=== PATIENT | female | born 1950 | race Caucasian/White ===

== ENCOUNTER → 2017-08-12 17:14 | Outpatient (CLI) | payer MEDICARE, BC, SELFPAY ==
--- NOTE | 2017-08-12 14:45 | FLU_PTH ---
PATIENT: GAUDENCIO ROMO LOC: [facility] U#:[id number] AGE/SX: 74/F ROOM: RE08/12/[address]: Dr. Gopi Corbin MD : 1950 BED: DIS: SPEC #: [id number] RECD: 08/12/17 16:00 STATUS: SINGH JAZMINE #: [id number] MONY: 08/12/17 14:[address]: Gopi Corbin DEPT: CYTOLOGY RECD BY: Raoul Miller ENTERED: 08/13/17 08:53 SP TYPE: Fluid OTHR DR: Dr. Caroline Bennett MD Tissues: Urine Procedures: Pap Stain (control) Special Stain Group II Surgery Specimen Level IV Cytospin Fluid HEADER OPERATION: Not noted PRE-OP DIAGNOSIS: History bladder cancer TISSUE SUBMITTED: Urine for cytology DIAGNOSIS CYTOLOGY Urine for cytology (cytospin): A few mildly atypical urothelial cells noted. See cytology study and comment. SJ:gavin 08/14/17 COMMENT Clinical correlation and appropriate follow up are necessary. CYTOLOGY STUDY Slides are reviewed. The specimen consists of benign squamous cells, benign urothelial cells, a few mildly atypical urothelial cells, red blood cells, inflammatory cells and numerous crystals. CYTOLOGY GROSS Received is 20 ml of gold cloudy fluid labeled with the patient's name and and designated per the requisition as urine. Submitted for cytology preparation. / Otto 08/13/17 TC:5 CPT: 17962
[2017-08-12 17:15] LABS: Cytology, Body Fluid / CSF SEE PATHOLOGY REPORT
== END ==
PROVIDERS: Family Provider Internal Medicine; PCP Internal Medicine; Visit Provider Urology
DX: Z85.51 Personal history of malignant neoplasm of bladder (principal)
CPT/HCPCS: 88108; 88305; 88313

== ENCOUNTER 2017-11-23 14:54 | Emergency (ER) | payer MEDICARE, BC, SELFPAY ==
[2017-11-23 14:54] VITALS: BP 124/69; PULSE 71; RESP 16; TEMP 36.7; O2SAT 98; BMI 22.2
--- NOTE | 2017-11-23 15:29 | ED.DCSUM_ITS ---
- ER Visit Summary Date of Service: 11/23/17 Chief Complaint: Neck pain and headache History of Present Illness: The patient is a [address] Bennett and Dr. Lance. She reports that she has a history of chronic neck pain. However, she got a cortisone injection approximately 1 year ago and been doing well till 3 days ago. She reports her pain became much worse. She denies any trauma. No fall, MVA, or change in activity. She reports that she has a throbbing pain is 10 in severity. Is worsened by movement or walking. Is relieved by remaining still and putting a towel under her neck. The pain does not radiate to her arms. She denies any numbness or tingling in her arms. No problems with her bowels or her bladder. Patient reports that this pain radiates over the back of her head to the forehead. She states that this is gradually increased over the course the past 3 days. Physical Examination: Vitals: Stable. Afebrile. General: Well-nourished and well-developed. Head: Normocephalic atraumatic. Neck: Supple, no lymphadenopathy. No JVD. Mild diffuse tenderness palpation with spasm present over the paraspinous musculature on both sides of her the cervical spine and the trapezius muscles. No vertebral tenderness to palpation.. Cardiovascular: Regular rate and rhythm. No murmurs. Respiratory: No respiratory distress. Clear to auscultation bilaterally. Abdominal: Soft, nontender, nondistended, normal bowel sounds. No guarding, rebound, or peritoneal signs. Back: Nontender. Extremities: Nontender, no edema. 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 Normal sensation light touch in a C5-T1 distribution. Skin: Normal color, no rash. Neurologic: Alert and oriented ?3. Cranial nerves II through XII are intact. Normal strength and sensation. Psych: Normal affect. Emergency Department Course and Treatment: Patient was treated with Tylenol and did not want anything stronger for pain. Treatment Plan: She will be discharged instructions to add Tylenol to her pain regimen and follow-up with Dr. Lance soon as possible if not improving. Return to the emergency department for any worsening symptoms. Disposition: To home in improved and stable condition. Impression: 1. Neck pain, acute on chronic. 2. Tension headache. This note was generated with Dragon dictation software. It may contain incorrect words, spelling, and punctuation that were not noted in review of the chart prior to signing ED Disposition - Plan for ED Patient: Disposition: Home or Assisted Living Chief Complaint: Headache Instructions: ED Headache Tension Referrals: Sai Lance MD [STAFF PHYSICIAN] - 1-2 Days if not improving
[2017-11-23 15:41] VITALS: BP 120/82; PULSE 76; RESP 16; O2SAT 99
[2017-11-23] MEDS: Acetaminophen 325 MG Tablet 1000 MG PO (15:42)
== END 2017-11-23 15:56 | disposition home or self-care (01) ==
LOC: ED 15:50
PROVIDERS: Emergency Provider Emergency Medicine; Family Provider Internal Medicine; PCP Internal Medicine
DX: M54.2 Cervicalgia (principal); G89.29 Other chronic pain; G44.209 Tension-type headache, unspecified, not intractable; R11.2 Nausea with vomiting, unspecified; M19.90 Unspecified osteoarthritis, unspecified site; M81.0 Age-related osteoporosis without current pathological fracture; M48.00 Spinal stenosis, site unspecified; Z90.49 Acquired absence of other specified parts of digestive tract; Z79.899 Other long term (current) drug therapy
CPT/HCPCS: 99283

== ENCOUNTER → 2017-12-02 12:18 | Outpatient (CLI) | payer MEDICARE, BC, SELFPAY ==
[2017-12-02 13:33] LABS: Amphetamine Urine VISTA NEGATIVE (<1000 ng/mL); Barbiturate Urine VISTA NEGATIVE (< 200 ng/mL); Benzodiazepine Urine VISTA NEGATIVE (< 200 ng/mL); Cocaine Urine VISTA NEGATIVE (< 300 ng/mL); Ecstacy Urine VISTA NEGATIVE (< 500 ng/mL); Methadone Urine VISTA NEGATIVE (< 300 ng/mL); PCP Urine VISTA NEGATIVE (< 25 ng/mL); THC Urine VISTA NEGATIVE (< 50 ng/mL); Vista UDS pH Range 5
== END ==
PROVIDERS: Family Provider Internal Medicine; PCP Internal Medicine; Visit Provider Anesthesiology Pain Medicine
DX: F11.20 Opioid dependence, uncomplicated (principal)
CPT/HCPCS: 80307

== ENCOUNTER → 2018-04-20 10:30 | Outpatient (CLI) | payer MEDICARE, BC, SELFPAY ==
--- OUTSIDE RECORDS SUMMARY | 2018-06-22 20:52 | XMS RPT_ITS ---
:1950 Author Organization OHIP Care Team Providers Name Role Phone ANA CONTRERAS Admitting Unavailable ANA CONTRERAS Attending Unavailable TALAMPAS, SUN D Referring Unavailable TALAMPAS, SUN D Referring Unavailable TALAMPAS, SUN D Attending Unavailable TALAMPAS, SUN D Referring Unavailable PELLE, CAROL (FEL) Attending Unavailable PELLE, CAROL (FEL) Referring Unavailable PELLE, CAROL (FEL) Referring Unavailable SELWYN ALLRED Referring Unavailable PELLE, CAROL (FEL) Attending Unavailable ANGELIQUE VALENTIN (PT) Attending Unavailable PELLE, CAROL (FEL) Referring Unavailable RAUL GOMEZ Attending Unavailable LADY FELDMAN Referring Unavailable ANGELIQUE VALENTIN (PT) Attending Unavailable PELLE, CAROL (FEL) Referring Unavailable ANGELIQUE VALENTIN (PT) Attending Unavailable PELLE, CAROL (FEL) Referring Unavailable ANGELIQUE VALENTIN (PT) Attending Unavailable PELLE, CAROL (FEL) Referring Unavailable DE TWILACO, KARLO C Attending Unavailable PELLE, CAROL (FEL) Referring Unavailable OLDER, ELIZABETH (GAS PLUMBING INSPECTOR) Attending Unavailable OLDER, ELIZABETH (GAS PLUMBING INSPECTOR) Referring Unavailable BARBIE, ANGELIQUE (PT) Attending Unavailable PELLE, CAROL (FEL) Referring Unavailable BARBIE, ANGELIQUE (PT) Attending Unavailable PELLE, CAROL (FEL) Referring Unavailable NOLANNUVIA (PA) Attending Unavailable THORPEDALJIT (PSYCHIATRIC CNS) Referring Unavailable LEVER, ANA Titus Attending Unavailable TESTRAKE, RANDOLPH Referring Unavailable TESTRAKE, RANDOLPH Attending Unavailable LEVER, ANA Titus Referring Unavailable MOUL, OFELIA E Attending Unavailable MOUL, OFELIA E Referring Unavailable LEVER, ANA Titus Referring Unavailable LEVER, ANA Titus Referring Unavailable LEVER, ANA Titus Attending Unavailable LEVER, ANA Titus Referring Unavailable LEVER, ANA Titus Attending Unavailable LEVER, ANA Titus Referring Unavailable TALAMPAS, SUN D Referring Unavailable CHALINOSELWYN Attending Unavailable LEVER, ANA Titus Attending Unavailable LEVER, ANA Titus Referring Unavailable LEVER, ANA Titus Attending Unavailable RIVERANIESHA (HOTEL VALET ATTENDANT) Attending Unavailable MOUL, OFELIA E Attending Unavailable MOUL, OFELIA E Referring Unavailable LEVER, ANA Titus Attending Unavailable LEVER, ANA Titus Attending Unavailable LEVER, ANA Titus Referring Unavailable ROSA ELENAYAIR (FEL) Attending Unavailable LEVER, ANA Titus Attending Unavailable VELLANKI, CELESTE KJ Referring Unavailable MOUL, OFELIA E Attending Unavailable MOUL, OFELIA E Referring Unavailable Emerald, Yury Attending Unavailable Emerald, Gopi Farr Referring Unavailable Talampas, Sun Primary Care Unavailable Emerald, Gopi Farr Attending Unavailable Talampas, Sun Primary Care Unavailable Talampas, Sun Primary Care Unavailable Abdulaziz Pradhan Attending Unavailable Basali, Ayman Attending Unavailable Basali, Ayman Referring Unavailable Talampas, Sun Primary Care Unavailable PROBLEMS PROBLEMS DATE TYPE CONDITION / CODE ATTENDING STATUS SOURCE 03/19/2018 Active Encounter for NA Active [place] screening mammogram Clinic Other for malignant neoplasm [place] of breast / Repository Z12.31(ICD-10) 01/07/2018 Active Obstructive sleep OFELIA CAR Active [place] apnea (adult) [facility] (pediatric) / [place] G47.33(ICD-10) Repository 07/10/2017 Active Lumbago with sciatica, OFELIA CAR Active [place] left side / [facility] M54.42(ICD-10) [place] Repository 07/10/2017 Active Lumbago with sciatica, OFELIA CAR Active [place] right side / E [facility] M54.41(ICD-10) [place] Repository 07/10/2017 Active Other chronic pain / OFELIA CAR Active [place] G89.29(ICD-10) [facility] [place] Repository 09/10/2017 Active Central sleep apnea in OFELIA CAR Active [place] conditions classified [facility] elsewhere / [place] G47.37(ICD-10) Repository 08/13/2017 Active Bariatric surgery OFELIA CAR Active [place] status / [facility] Z98.84(ICD-10) [place] Repository 04/03/2016 Active Psychophysiologic OFELIA CAR Active [place] insomnia / [facility] F51.04(ICD-10) [place] Repository 10/21/2012 Active Major depressive OFELIA CAR Active [place] disorder, recurrent, [facility] in partial remission / [place] F33.41(ICD-10) Repository 02/12/2012 Active Epilepsy, unspecified, OFELIA CAR Active [facility] not intractable, [facility] without status [place] epilepticus / Repository G40.909(ICD-10) 12/02/2017 Unknown F11.20 - Opioid Basali, Ayman Active [facility] dependence, [facility] uncomplicated / Hospital F11.20(ICD-10) Repository 11/06/2017 Active Other dysphagia / NA Active [place] R13.19(ICD-10) Clinic Main [place] Repository 02/03/2017 Active Mixed hyperlipidemia / CHALINOIDAAN Active [place] E78.2(ICD-10) Clinic Main [place] Repository 01/08/2016 Active Vitamin D deficiency, CHALINOSELWYN Active [place] unspecified / Clinic [facility] E55.9(ICD-10) [place] Repository 01/08/2016 Active Hypothyroidism, CHALINO SELWYN Active [place] unspecified / Clinic [facility] E03.9(ICD-10) [place] Repository 10/06/2017 Active Age-related SELWYN ALLRED Active [place] osteoporosis without [facility] current pathological [place] fracture / Repository M81.0(ICD-10) 10/06/2017 Active Mild protein-calorie SELWYN ALLRED Active [place] malnutrition / Clinic [facility] E44.1(ICD-10) [place] Repository 10/02/2017 Active Unknown / UNK(Unknown) ANA CONTRERAS Active [facility] Other [place] Repository 09/30/2017 Active Impaired fasting NA Active [place] glucose / Clinic [facility] R73.01(ICD-10) [place] Repository 09/16/2017 Active Dyskinesia 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 Active [place] esophagus / [facility] K22.4(ICD-10) [place] Repository 09/11/2017 Active Dysphagia, unspecified NA Active [place] / R13.10(ICD-10) Clinic Main [place] Repository 08/13/2017 Active Epigastric pain / NA Active [place] R10.13(ICD-10) Clinic Main [place] Repository 09/09/2017 Active Acquired absence of NA Active [place] other specified parts Clinic Main of digestive tract / [place] Z90.49(ICD-10) Repository 09/08/2017 Active Pain, unspecified / NA Active [place] R52(ICD-10) Clinic Main [place] Repository 10/23/2017 Unknown Z85.51 - Personal Emerald, Gopi Active [place] history of malignant [facility] neoplasm of bladder / Hospital Z85.51(ICD-10) Repository 08/02/2017 Active Candidal stomatitis / NA Active [place] B37.0(ICD-10) Clinic Other [place] Repository 05/13/2017 Active Radiculopathy, lumbar NA Active [place] region / Clinic Main M54.16(ICD-10) [place] Repository 04/30/2017 Active 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 ORGANISM 1: Mixed Gram Positive Organisms [place] Count <1000 MIX CULTURE Mixed contaminants. Submit a new specimen if indicated. Performed By: #### [id number] #### [facility] [address] [place], [place], [address] PROGRESS Observed: 04/08/2018 Status: COMPLETED Source: [place] 3:21 PM CLINIC MAIN CAMPUS REPOSITORY HNO ID: [id number] Author: Annetta Holt LPN Service: (none) Author Type: (none) Type: Progress Notes Filed: 04/08/2018 3:23 PM Note Text: PA approved for modafinil from 03/04/2018 until 04/03/2019. Pharmacy notified. CNCO Observed: 03/23/2018 Status: COMPLETED Source: [place] 9:56 AM [facility] MAIN CAMPUS REPOSITORY HNO ID: [id number] Author: Mammography Coordinator Service: (none) Author Type: Physician Type: Letter Filed: 03/24/2018 11:31 PM Note Text: March 23, 2018 PID: [id number] Frannie MahnazMeliza Romo [address] [place] [address] Dear Ms. Romo, We are pleased to inform you that the results of your recent breast imaging exam on 03/19/2018 are normal. Early detection of cancer is very important. We also understand recommendations regarding breast cancer screening are controversial. Please discuss with your primary care provider which strategy is best for you and whether a mammogram is right for you. Your imaging studies and report will be kept on file at [facility] as part of your permanent medical record and are available for your continuing care. Thank you for allowing us to help in meeting your health care needs. Sincerely, Dr. Mendosa Interpreting Radiologist [facility]. (Normal over 40) JENNIFER SCREENING W NOELLE Observed: 03/19/2018 Status: F Source: [place] 2:38 PM [facility] OTHER CAMPUS REPOSITORY * * *Final Report* * * DATE OF EXAM: Mar 19 2018 2:38PM AJIT [id number] - JENNIFER SCREENING W NOELLE / PROCEDURE REASON: Z12.31-Screening for breast cancer * * * * Physician Interpretation * * * * #[id number] - JENNIFER SCREENING W NOELLE BILATERAL DIGITAL SCREENING MAMMOGRAM TOMOSYNTHESIS WITH CAD: 03/19/2018 HISTORY: Z12.31-Screening For Breast Cancer /Screening Mammogram - patient reports NO symptoms. RESULT: TECHNIQUE: The study was acquired using full field digital technology and interpreted from soft copy. Digital Breast Tomosynthesis (DBT) images were obtained and used to assist in the interpretation of this examination. Current study was also evaluated with a Computer Aided Detection (CAD). Comparison is made to exams dated: 03/17/2017 mammogram, 03/14/2016 mammogram, and 03/15/2015 mammogram - [facility]. There are scattered fibroglandular elements in both breasts. There are benign calcifications in the right breast. No significant masses, calcifications, or other findings are seen in either breast. There has been no significant interval change. IMPRESSION: BENIGN FINDING There is no mammographic evidence of malignancy. A 1 year screening mammogram is recommended. Eddy summers/natalia:03/23/2018 09:56:07 New Accounts Banking Representative(s): HAMILTON Hartman)(Mahnaz), [facility] letter sent: Normal over 40 Mammogram BI-RADS: 2 Benign finding Multiple national specialty organizations have released breast cancer screening guidelines for women at average risk for developing breast cancer - guidelines that are based on both evidence and opinion, yet differ on when to start and how often to screen for breast cancer. With representation from Breast Imaging, Internal Medicine, Women's Health, Family Medicine, and Medical/Surgical Oncology, the [facility] has carefully reviewed the data and reached the following consensus: 1) All women should engage in shared decision-making with their providers to decide when to start and how often to screen; 2) All women should have the opportunity to start screening mammography at age 40; 3) For women ages 45-55, we recommend annual screening mammograms; 4) For women ages 55 and over, we support both the transition from an annual to a biennial interval if this aligns more with patient's values and preferences, or continuation with annual screening; 5) All women should discuss with their providers when to stop screening mammograms. 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Livestock: Natalia Transcribe Date/Time: Mar 19 2018 2:27P Dictated by : EDDY MENDOSA DO This examination was interpreted and the report reviewed and electronically signed by: EDDY MENDOSA DO on Mar 23 2018 9:56AM EST [id number] CNOV Observed: 03/04/2018 Status: COMPLETED Source: [place] 1:00 PM [facility] [place] REPOSITORY Office Visit (NEMOWS) FRANNIE ROMO ([id number]) 1950 F [facility] Date Time Provider Department 03/04/18 1:00 PM OFELIA CAR During your visit today, we recorded the following information about you: Pulse Respiration Blood pressure Weight 72/minute 16/minute 96/56 53.9 kg Ofelia Car MD 03/04/2018 1:40 PM Signed [facility] Follow-up/Established patient visit Reason for Visit on 03/04/18 at [place] : periodic follow up. Time Out: 1:40 Time In: 1:20 For this visit, a total xtks-oy-xwxy time with the patient comprised 20 minutes, with at least 50% of that time devoted to uqrd-ws-vmid counseling and coordination of care, with especial emphasis placed on answering the patient?s and/or family?s questions in a form that they can understand and appreciate. Relevant Medications, allergies, hx Reviewed: yes Date of last visit: 12/03/17 Insurance: Medicare Home Location: [place] From Last Visit: Sleep Disorder Dx Impression: Obstructive sleep apnea - compliant sufficient and benefitt Central Sleep apnea Psychophysiological INsomnia ? Other Conditioning Diagnoses: Epilepsy, Hx Gastric bypass MDD [place] ? Case Formulation / [place] (may include pt's hopes, fears, expectations, concerns): Present regimen is working ok ? Actions taken: Motivational Interviewing aspects taken Explaining out the regimen. PDMP Aspect: To schedule from 12/09 forward ? ? Review Explanation of how opiats affect breathing Explaining diff betw Bipap and ASV ? Plan: Continue present regimen, continue to observe ? Follow up on March 04. . Psychological/Psychiatric Developments: Generally going well, The abilify continues to be a breakthrough drug. Medical and Neurological Developments: No new. Continues to have some pain issues. Wearing a TENS unit. Insomnia: found that the trazodone impaired her swallowing and made her feel weird, so she stopped it. Noted this after stopping the trazodone. Continued with the ambien Has not tried doxepin before. . RLS: no Other: no SLEEP-WAKE SCHEDULE Bedtime: usu about 1 am up to 2. SLEEP LATENCY: 30 min mostly Wake after Sleep Onset solid for the time, wearing ASV. Wake time: at 4 or 5, staying in bed till 9 or 10 am. , On weekends, she maintains the same sleep schedule. Sleep Quality: fair, improved, but not optimal She does not take naps. Average total sleep time (in a 24 hour period): 4 hours mostly may get 10 hours. Obstructive Sleep Apnea Issues: Most Recent Apnea-Hypopnea Index: 48 PAP Pressure Setting(s) ASV DME Company: [facility] ?? Mask Type: Lisha Mask Issues: Will find the mask comes off Download Report: na Self-Reported Compliance: Every night Benefit: Yes. ALLERGIES Allergen Reactions - Effexor [Venlafaxin* Intolerance headaches - Anticholinergics - * cogentin - Codiene [Other] chest pain - Cogentin [Benztropi* Body went rigid - Dex Rachelle [Other] Medrol dose pack: hallucinatios, diff walking - Keflex [Cephalexin] Intolerance makes pt too drowsy - Phenothiazines compazine-1 sided facial weakness (like stroke) - Roxicet [Oxycodone-* Itching CURRENT MEDICATIONS: oxyCODONE-acetaminophen (PERCOCET) 5-325 mg tablet naloxegol (MOVANTIK) 25 mg tablet Take 1 tablet by mouth once daily. CPAP Mask (per patient preference) optional chin strap (if indicated), filters, tubing / heated tubing, heated humidity and lifetime supplies. Dx. JUVENAL G47.33 327.23 ARIPiprazole (ABILIFY) 5 mg tablet Take 2 tablets by mouth once daily. Zolpidem (AMBIEN CR) 12.5 mg CR tablet Take 1 tablet by mouth at bedtime as needed for Sedation (generic acceptable) for up to 90 days. cholecalciferol, Vitamin D3, (VITAMIN D3) 50,000 unit cap capsule Take 1 capsule by mouth once each week. levothyroxine (SYNTHROID) 50 mcg tablet Take one tablet by mouth once daily, and 1/2 tablet on Sundays. ondansetron orally disintegrating (ZOFRAN ODT) 4 mg disintegrating tablet Take 1 tablet by mouth every 6 hours as needed for Nausea/Vomiting. docusate sodium (COLACE) 100 mg capsule Take 100 mg by mouth twice daily. lamoTRIgine (LAMICTAL) 100 mg tablet Take 1 tablet by mouth twice daily. traZODone (DESYREL) 100 mg tablet Take 3 tablets by mouth daily at bedtime. COMPOUNDED PRESCRIPTION Powerstep full length insert(M72.2) Plantar fasciitis of right foot (primary encounter diagnosis) ARIPiprazole (ABILIFY) 5 mg tablet Take 2 tablets by mouth once daily. zoledronic acid (RECLAST) 5 mg/100 mL pgbk PREMIX piggyback Inject 100 mL intravenously every year. CPAP AutoSV EPAP min= 12 cmH2O, PS min-max = 3-00dwT2A, Max pressure = 25 cmH2O, Rate =Auto, lifetime supplies, Dx: G47.33, G47.37 diclofenac sodium (VOLTAREN) 1 % topical gel Apply 2 g to affected area four times daily. APREMILAST (OTEZLA ORAL) Take 30 mg by mouth twice daily. DOCUSATE CALCIUM (STOOL SOFTENER ORAL) Take 1 tablet by mouth twice daily. oxybutynin XL (DITROPAN XL) 10 mg 24 hr tablet Take 10 mg by mouth once daily. ASCORBIC ACID (VITAMIN C ORAL) Take 1 tablet by mouth once daily. Biotin 10,000 mcg cap Take 15,000 mcg by mouth twice daily. Coenzyme Q10 200 mg cap Take 200 mg by mouth twice daily. pregabalin 150 mg capsule Take 1 capsule by mouth once daily. Dr Lance MAGNESIUM OXIDE/MAG AA CHELATE (MAGNESIUM ORAL) Take 1 tablet by mouth twice daily. LACTOBACILLUS RHAMNOSUS GG (PROBIOTIC ORAL) Take 1 capsule by mouth daily at bedtime. Cyanocobalamin (VITAMIN B-12) 1,000 mcg ORAL Lozg Take 1,000 mcg by mouth once daily. FE PS CMPLX/ASCORBIC ACID (IRON PS COMPLEX-ASCORBIC ACID ORAL) Take 1 tablet by mouth daily at bedtime. LIDOCAINE 5 % (700 MG/PATCH) ADHESIVE PATCH Apply one patch to each hip daily. Remove patch after 12 hours. as needed MULTIVITAMIN TAB daily vitamin b complex(B COMPLEX TAB) Take one(1) tablet daily. Vital signs: BP 96/56 (BP Site: Left Arm, BP Position: Sitting, BP Cuff Size: Regular Adult) Pulse 72 Resp 16 Wt 53.9 kg (118 lb 12.8 oz) BMI 23.20 kg/m? MENTAL STATUS General appearance: prim Grooming good Orientation: Ox3 Memory: Grossly intact Kinetics: normal Eye Contact: good Demeanor pleasnat Speech: articulate Thought Stream logical Thought Content about how doing. Mood: euth Affect: euth Suicidal Ideation: no Homocidal Ideation: No Psychosis no Insight good Judgment good ENT : na Abdomen: flat Neuro: Gait and station normal, Strength grossly normal in all extremities. Coordination grossly intact. No tremors noted. Sleep Disorder Dx Impression: Obstructive sleep apnea - compliant sufficient and benefitt Central Sleep apnea Psychophysiological Insomnia ? Other Conditioning Diagnoses: Epilepsy, Hx Gastric bypass MDD Tremor Case Formulation / [place] (may include pt's hopes, fears, expectations, concerns): Presently doing rather well, Might try doxepin to see if helpful, but in limited supply Actions taken: Motivational Interviewing aspects taken revies PDMP Aspect: na Added Doxepin 10 mg hs. #10 only Plan: Go with Doxepin if helpful; Keep to present meds. Follow up as scheduled. Ofelia Car MD Referring Provider: OFELIA CAR [[id number]] Allergies As of Date: 03/04/2018 Noted Allergy Reaction EFFEXOR (VENLAFAXINE HCL) 01/01/2010 5 - Intolerance Comments: headaches ANTICHOLINERGICS - QUATERNARY 01/04/2003 Comments: cogentin Codiene [Other] 01/04/2003 Comments: chest pain GEORGIAENTIN (BENZTROPINE MESYLATE) 03/16/2008 Comments: Body went rigid dex rachelle [Other] 03/16/2008 Comments: Medrol dose pack: hallucinatios, diff walking KEFLEX (CEPHALEXIN) 12/18/2011 5 - Intolerance Comments: makes pt too drowsy PHENOTHIAZINES 01/04/2003 Comments: compazine-1 sided facial weakness (like stroke) ROXICET (OXYCODONE-ACETAMINOPHEN) 03/15/2010 9 - Itching Date Reviewed: 02/09/2018 Reviewed by: Esteban Quesada) BALDEV [place] - Fully Assessed Reason for Visit: Established Patient [175] Primary Visit Diagnosis:Psychophysiological insomnia [F51.04] Other Visit Diagnoses:Obstructive Sleep apnea - AHI 48 [G47.33] Central sleep apnea due to medical condition [G47.37] Recurrent major depressive disorder, in partial remission (HCC) [F33.41] History of gastric bypass [Z98.84] Nonintractable epilepsy without status epilepticus, unspecified epilepsy type (HCC) [G40.909] Chronic bilateral low back pain with bilateral sciatica [M54.42, M54.41, G89.29] Order(s):doxepin capsule 10 mgTake 1 capsule by mouth daily at bedtime.Disp: 10 capsuleRfl: 0 Prescriptions as of 03/04/2018 Sig: OXYCODONE-ACETAMINOPHEN 5 MG-* ZOLPIDEM ER 12.5 MG TABLET,EX* Take 1 tablet by mouth at bed* LEVOTHYROXINE 50 MCG TABLET Take one tablet by mouth once* LAMOTRIGINE 100 MG TABLET Take 1 tablet by mouth twice * OXYBUTYNIN CHLORIDE ER 10 MG * Take 10 mg by mouth once vashti* PREGABALIN 150 MG CAPSULE Take 1 capsule by mouth once * Patient taking differently: Take 150 mg by mouth twice da* MAGNESIUM ORAL Take 1 tablet by mouth twice * LIDOCAINE 5 % TOPICAL PATCH Apply one patch to each hip d* MULTIVITAMIN TABLET daily DOXEPIN 10 MG CAPSULE Take 1 capsule by mouth daily* NALOXEGOL 25 MG TABLET Take 1 tablet by mouth once d* Patient not taking: Reported on 02/09/2018 CPAP Mask (per patient preference)* ARIPIPRAZOLE 5 MG TABLET Take 2 tablets by mouth once * CHOLECALCIFEROL (VITAMIN D3) * Take 1 capsule by mouth once * ONDANSETRON 4 MG DISINTEGRATI* Take 1 tablet by mouth every * Patient not taking: Reported on 02/09/2018 DOCUSATE SODIUM 100 MG CAPSULE Take 100 mg by mouth twice da* COMPOUNDED PRESCRIPTION Powerstep full length insert * ARIPIPRAZOLE 5 MG TABLET Take 2 tablets by mouth once * ZOLEDRONIC ACID 5 MG/100 ML I* Inject 100 mL intravenously e* CPAP AutoSV EPAP min= 12 cmH2O, PS* DICLOFENAC 1 % TOPICAL GEL Apply 2 g to affected area fo* OTEZLA ORAL Take 30 mg by mouth twice lulu* STOOL SOFTENER ORAL Take 1 tablet by mouth twice * VITAMIN C ORAL Take 1 tablet by mouth once d* BIOTIN 10,000 MCG CAPSULE Take 15,000 mcg by mouth twic* COENZYME Q10 200 MG CAPSULE Take 200 mg by mouth twice da* PROBIOTIC ORAL Take 1 capsule by mouth daily* CYANOCOBALAMIN (VIT B-12) 1,0* Take 1,000 mcg by mouth once * IRON PS COMPLEX-ASCORBIC ACID* Take 1 tablet by mouth daily * B COMPLEX TABLET,EXTENDED REL* Take one(1) tablet daily. More... More... Problem List As Of Date 03/04/2018 Noted Resolved Obesity, unspecified [E66.9] INVALID FOR*09/18/2012 More... More... Depressive disorder, not elsewhere classified [*INVALID FOR*10/21/2012 More... Mixed hyperlipidemia [E78.2] INVALID FOR* More... BONE AND CARTILAGE DIS NOS [M89.9, M94.9] INVALID FOR* More... Hypothyroidism [E03.9] INVALID FOR* More... Unspecified sleep apnea [G47.30] INVALID FOR*06/20/2014 More... More... Radiculopathy, lumbar region [M54.16] INVALID FOR* More... More... DISC DIS NEC/NOS-THORAC [M51.9] INVALID FOR* More... CERVICALGIA [M54.2] INVALID FOR* More... More... More... Vitamin D deficiency [E55.9] INVALID FOR* More... More... Insomnia [G47.00] 04/13/2014 Chronic insomnia [F51.04] INVALID FOR*04/13/2014 Class: Chronic More... 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 Obstructive Sleep apnea - AHI 48 [G47.33] INVALID FOR* Osteoporosis, unspecified [M81.0] INVALID FOR*08/09/2014 Osteoporosis [M81.0] INVALID FOR* More... Central sleep apnea in conditions classified el*INVALID FOR* DDD (degenerative disc disease), cervical [M50.*INVALID FOR* DDD (degenerative disc disease), lumbar [M51.36]INVALID FOR* Chronic pain [G89.29] INVALID FOR* Memory deficits [R41.3] INVALID FOR* Onychomycosis [B35.1] INVALID FOR* More... Psoriatic arthritis (HCC) [L40.50] INVALID FOR* Rotator cuff arthropathy, left [M12.812] INVALID FOR* Cervical radiculopathy [M54.12] INVALID FOR* Chronic bilateral low back pain with bilateral *INVALID FOR* Epigastric abdominal pain [R10.13] INVALID FOR* More... History of gastric bypass [Z98.84] INVALID FOR* More... Central sleep apnea due to medical condition [G*INVALID FOR* Prescriptions ordered this encounter Disp Refills Start End DOXEPIN 10 MG CAPSULE 10 c* 0 03/04/2018 Route: ORAL Sig: Take 1 capsule by mouth daily at bedtime. Medications Discontinued During This Encounter traZODone (DESYREL) 100 mg tablet 270 * 3 09/10/2017 03/04/2018 Route: ORAL Sig: Take 3 tablets by mouth daily at bedtime. Patient not taking: Reported on 01/28/2018 Disc: Adverse Reaction Follow-up and Disposition History Recorded Encounter Status:Closed by MD OFELIA CAR on 03/04/18 PROGRESS Observed: 03/03/2018 Status: COMPLETED Source: [place] 1:05 PM [facility] [place] HNO ID: [id number] Author: Ofelia Car Service: (none) Author Type: Physician Type: Progress Notes Filed: 03/04/2018 1:40 PM Note Text: [facility] Follow-up/Established patient visit Reason for Visit on 03/04/18 at [place] : periodic follow up. Time Out: 1:40 Time In: 1:20 For this visit, a total ycef-ro-umnb time with the patient comprised 20 minutes, with at least 50% of that time devoted to szrj-xc-hcya counseling and coordination of care, with especial emphasis placed on answering the patient?s and/or family?s questions in a form that they can understand and appreciate. Relevant Medications, allergies, hx Reviewed: yes Date of last visit: 12/03/17 Insurance: Medicare Home Location: [place] From Last Visit: Sleep Disorder Dx Impression: Obstructive sleep apnea - compliant sufficient and benefitt Central Sleep apnea Psychophysiological INsomnia ? Other Conditioning Diagnoses: Epilepsy, Hx Gastric bypass MDD [place] ? Case Formulation / [place] (may include pt's hopes, fears, expectations, concerns): Present regimen is working ok ? Actions taken: Motivational Interviewing aspects taken Explaining out the regimen. PDMP Aspect: To schedule from 12/09 forward ? ? Review Explanation of how opiats affect breathing Explaining diff betw Bipap and ASV ? Plan: Continue present regimen, continue to observe ? Follow up on March 04. . Psychological/Psychiatric Developments: Generally going well, The abilify continues to be a breakthrough drug. Medical and Neurological Developments: No new. Continues to have some pain issues. Wearing a TENS unit. Insomnia: found that the trazodone impaired her swallowing and made her feel weird, so she stopped it. Noted this after stopping the trazodone. Continued with the ambien Has not tried doxepin before. . RLS: no Other: no SLEEP-WAKE SCHEDULE Bedtime: usu about 1 am up to 2. SLEEP LATENCY: 30 min mostly Wake after Sleep Onset solid for the time, wearing ASV. Wake time: at 4 or 5, staying in bed till 9 or 10 am. , On weekends, she maintains the same sleep schedule. Sleep Quality: fair, improved, but not optimal She does not take naps. Average total sleep time (in a 24 hour period): 4 hours mostly may get 10 hours. Obstructive Sleep Apnea Issues: Most Recent Apnea-Hypopnea Index: 48 PAP Pressure Setting(s) ASV DME Company: [facility] ?? Mask Type: Lsiha Mask Issues: Will find the mask comes off Download Report: na Self-Reported Compliance: Every night Benefit: Yes. ALLERGIES Allergen Reactions - Effexor [Venlafaxin* Intolerance headaches - Anticholinergics - * cogentin - Codiene [Other] chest pain - Cogentin [Benztropi* Body went rigid - Dex Rachelle [Other] Medrol dose pack: hallucinatios, diff walking - Keflex [Cephalexin] Intolerance makes pt too drowsy - Phenothiazines compazine-1 sided facial weakness (like stroke) - Roxicet [Oxycodone-* Itching CURRENT MEDICATIONS: oxyCODONE-acetaminophen (PERCOCET) 5-325 mg tablet naloxegol (MOVANTIK) 25 mg tablet Take 1 tablet by mouth once daily. CPAP Mask (per patient preference) optional chin strap (if indicated), filters, tubing / heated tubing, heated humidity and lifetime supplies. Dx. JUVENAL G47.33 327.23 ARIPiprazole (ABILIFY) 5 mg tablet Take 2 tablets by mouth once daily. Zolpidem (AMBIEN CR) 12.5 mg CR tablet Take 1 tablet by mouth at bedtime as needed for Sedation (generic acceptable) for up to 90 days. cholecalciferol, Vitamin D3, (VITAMIN D3) 50,000 unit cap capsule Take 1 capsule by mouth once each week. levothyroxine (SYNTHROID) 50 mcg tablet Take one tablet by mouth once daily, and 1/2 tablet on Sundays. ondansetron orally disintegrating (ZOFRAN ODT) 4 mg disintegrating tablet Take 1 tablet by mouth every 6 hours as needed for Nausea/Vomiting. docusate sodium (COLACE) 100 mg capsule Take 100 mg by mouth twice daily. lamoTRIgine (LAMICTAL) 100 mg tablet Take 1 tablet by mouth twice daily. traZODone (DESYREL) 100 mg tablet Take 3 tablets by mouth daily at bedtime. COMPOUNDED PRESCRIPTION Powerstep full length insert(M72.2) Plantar fasciitis of right foot (primary encounter diagnosis) ARIPiprazole (ABILIFY) 5 mg tablet Take 2 tablets by mouth once daily. zoledronic acid (RECLAST) 5 mg/100 mL pgbk PREMIX piggyback Inject 100 mL intravenously every year. CPAP AutoSV EPAP min= 12 cmH2O, PS min-max = [id number], Max pressure = 25 cmH2O, Rate =Auto, lifetime supplies, Dx: G47.33, G47.37 diclofenac sodium (VOLTAREN) 1 % topical gel Apply 2 g to affected area four times daily. APREMILAST (OTEZLA ORAL) Take 30 mg by mouth twice daily. DOCUSATE CALCIUM (STOOL SOFTENER ORAL) Take 1 tablet by mouth twice daily. oxybutynin XL (DITROPAN XL) 10 mg 24 hr tablet Take 10 mg by mouth once daily. ASCORBIC ACID (VITAMIN C ORAL) Take 1 tablet by mouth once daily. Biotin 10,000 mcg cap Take 15,000 mcg by mouth twice daily. Coenzyme Q10 200 mg cap Take 200 mg by mouth twice daily. pregabalin 150 mg capsule Take 1 capsule by mouth once daily. Dr Lance MAGNESIUM OXIDE/MAG AA CHELATE (MAGNESIUM ORAL) Take 1 tablet by mouth twice daily. LACTOBACILLUS RHAMNOSUS GG (PROBIOTIC ORAL) Take 1 capsule by mouth daily at bedtime. Cyanocobalamin (VITAMIN B-12) 1,000 mcg ORAL Lozg Take 1,000 mcg by mouth once daily. FE PS CMPLX/ASCORBIC ACID (IRON PS COMPLEX-ASCORBIC ACID ORAL) Take 1 tablet by mouth daily at bedtime. LIDOCAINE 5 % (700 MG/PATCH) ADHESIVE PATCH Apply one patch to each hip daily. Remove patch after 12 hours. as needed MULTIVITAMIN TAB daily vitamin b complex(B COMPLEX TAB) Take one(1) tablet daily. Vital signs: BP 96/56 (BP Site: Left Arm, BP Position: Sitting, BP Cuff Size: Regular Adult) Pulse 72 Resp 16 Wt 53.9 kg (118 lb 12.8 oz) BMI 23.20 kg/m? MENTAL STATUS General appearance: prim Grooming good Orientation: Ox3 Memory: Grossly intact Kinetics: normal Eye Contact: good Demeanor pleasnat Speech: articulate Thought Stream logical Thought Content about how doing. Mood: euth Affect: euth Suicidal Ideation: no Homocidal Ideation: No Psychosis no Insight good Judgment good ENT : na Abdomen: flat Neuro: Gait and station normal, Strength grossly normal in all extremities. Coordination grossly intact. No tremors noted. Sleep Disorder Dx Impression: Obstructive sleep apnea - compliant sufficient and benefitt Central Sleep apnea Psychophysiological Insomnia ? Other Conditioning Diagnoses: Epilepsy, Hx Gastric bypass MDD Tremor Case Formulation / [place] (may include pt's hopes, fears, expectations, concerns): Presently doing rather well, Might try doxepin to see if helpful, but in limited supply Actions taken: Motivational Interviewing aspects taken revies PDMP Aspect: na Added Doxepin 10 mg hs. #10 only Plan: Go with Doxepin if helpful; Keep to present meds. Follow up as scheduled. Ofelia Car MD CNOV Observed: 02/09/2018 Status: COMPLETED Source: [place] 3:40 PM [facility] [place] RE[place]IT[place] Office Visit ([facility]) FRANNIE ROMO ([id number]) 1950 [address] [facility] Date Time Provider Department 02/09/18 3:40 PM ANA CONTRERAS [facility] During your visit today, we recorded the following information about you: Pulse Respiration Blood pressure Weight 69/minute 16/minute 78/54 54 kg Height 1.524 m Esteban Holloway LPN, BALDEV 02/09/2018 3:07 PM Signed Follow Up Visit There were no vitals filed for this visit. Current Medications: Current Outpatient Prescriptions: oxyCODONE-acetaminophen (PERCOCET) 5-325 mg tablet Disp: Rfl: Zolpidem (AMBIEN CR) 12.5 mg CR tablet Take 1 tablet by mouth at bedtime as needed for Sedation (generic acceptable) for up to 90 days. Disp: 90 tablet Rfl: 0 cholecalciferol, Vitamin D3, (VITAMIN D3) 50,000 unit cap capsule Take 1 capsule by mouth once each week. Disp: 12 capsule Rfl: 4 levothyroxine (SYNTHROID) 50 mcg tablet Take one tablet by mouth once daily, and 1/2 tablet on Sundays. Disp: 90 tablet Rfl: 3 lamoTRIgine (LAMICTAL) 100 mg tablet Take 1 tablet by mouth twice daily. Disp: 60 tablet Rfl: 5 ARIPiprazole (ABILIFY) 5 mg tablet Take 2 tablets by mouth once daily. Disp: 180 tablet Rfl: 3 zoledronic acid (RECLAST) 5 mg/100 mL pgbk PREMIX piggyback Inject 100 mL intravenously every year. Disp: 100 mL Rfl: 0 diclofenac sodium (VOLTAREN) 1 % topical gel Apply 2 g to affected area four times daily. Disp: 1 Tube Rfl: 1 APREMILAST (OTEZLA ORAL) Take 30 mg by mouth twice daily. Disp: Rfl: DOCUSATE CALCIUM (STOOL SOFTENER ORAL) Take 1 tablet by mouth twice daily. Disp: Rfl: ASCORBIC ACID (VITAMIN C ORAL) Take 1 tablet by mouth once daily. Disp: Rfl: Biotin 10,000 mcg cap Take 15,000 mcg by mouth twice daily. Disp: Rfl: Coenzyme Q10 200 mg cap Take 200 mg by mouth twice daily. Disp: Rfl: pregabalin 150 mg capsule Take 1 capsule by mouth once daily. Dr Lance (Patient taking differently: Take 150 mg by mouth twice daily. Dr Lance) Disp: Rfl: MAGNESIUM OXIDE/MAG AA CHELATE (MAGNESIUM ORAL) Take 1 tablet by mouth twice daily. Disp: Rfl: LACTOBACILLUS RHAMNOSUS GG (PROBIOTIC ORAL) Take 1 capsule by mouth daily at bedtime. Disp: Rfl: Cyanocobalamin (VITAMIN B-12) 1,000 mcg ORAL Lozg Take 1,000 mcg by mouth once daily. Disp: Rfl: FE PS CMPLX/ASCORBIC ACID (IRON PS COMPLEX-ASCORBIC ACID ORAL) Take 1 tablet by mouth daily at bedtime. Disp: Rfl: LIDOCAINE 5 % (700 MG/PATCH) ADHESIVE PATCH Apply one patch to each hip daily. Remove patch after 12 hours. as needed Disp: 180 Rfl: 1 MULTIVITAMIN TAB daily Disp: Rfl: naloxegol (MOVANTIK) 25 mg tablet Take 1 tablet by mouth once daily. (Patient not taking: Reported on 02/09/2018 ) Disp: 90 tablet Rfl: 3 CPAP Mask (per patient preference) optional chin strap (if indicated), filters, tubing / heated tubing, heated humidity and lifetime supplies. Dx. JUVENAL G47.33 327.23 Disp: 1 Device Rfl: 11 ARIPiprazole (ABILIFY) 5 mg tablet Take 2 tablets by mouth once daily. Disp: 20 tablet Rfl: 0 ondansetron orally disintegrating (ZOFRAN ODT) 4 mg disintegrating tablet Take 1 tablet by mouth every 6 hours as needed for Nausea/Vomiting. (Patient not taking: Reported on 02/09/2018 ) Disp: 10 tablet Rfl: 0 docusate sodium (COLACE) 100 mg capsule Take 100 mg by mouth twice daily. Disp: Rfl: traZODone (DESYREL) 100 mg tablet Take 3 tablets by mouth daily at bedtime. (Patient not taking: Reported on 01/28/2018 ) Disp: 270 tablet Rfl: 3 COMPOUNDED PRESCRIPTION Powerstep full length insert(M72.2) Plantar fasciitis of right foot (primary encounter diagnosis) Disp: 1 Device Rfl: 0 CPAP AutoSV EPAP min= 12 cmH2O, PS min-max = [id number], Max pressure = 25 cmH2O, Rate =Auto, lifetime supplies, Dx: G47.33, G47.37 Disp: 1 Device Rfl: 0 oxybutynin XL (DITROPAN XL) 10 mg 24 hr tablet Take 10 mg by mouth once daily. Disp: Rfl: vitamin b complex(B COMPLEX TAB) Take one(1) tablet daily. Disp: Rfl: 0 No current facility-administered medications for this visit. Follow up regarding:Esophageal dysmotility Interval Events: Subjective: Patient took a trial of Movantik 4 pills. Swallowing did not improve while taking the Movantik. History of a Domenico-en-Y gastrojejunostomy. History of previously noted widely patent GE junction. No achalasia abut with severe esophageal dysmotility per barium esophagram performed in 08/2017. Ingested barium coated chicken and the majority of the chicken remained in the esophagus.per barium esophagram performed in 10/2017. Weight has increased by 10 pounds since 10/2017. She currenty is eating Healthy Choice dinners. Objective: Deferred Impression: Dysphagia associated with significant esophageal dysmotility Chronic ipoids Plan: Continue current methods of eating except slow pace of eating. OV in 6 months The majority of the visit was spent counseling and/or coordinating care for the patient. Wdmi-or-zhqo time was 15 minutes. Ana Contreras MD Referring Provider: SELF [[id number]] Allergies As of Date: 02/09/2018 Noted Allergy Reaction EFFEXOR (VENLAFAXINE HCL) 01/01/2010 5 - Intolerance Comments: headaches ANTICHOLINERGICS - QUATERNARY 01/04/2003 Comments: cogentin Codiene [Other] 01/04/2003 Comments: chest pain GEORGIAENTIN (BENZTROPINE MESYLATE) 03/16/2008 Comments: Body went rigid dex rachelle [Other] 03/16/2008 Comments: Medrol dose pack: hallucinatios, diff walking KEFLEX (CEPHALEXIN) 12/18/2011 5 - Intolerance Comments: makes pt too drowsy PHENOTHIAZINES 01/04/2003 Comments: compazine-1 sided facial weakness (like stroke) ROXICET (OXYCODONE-ACETAMINOPHEN) 03/15/2010 9 - Itching Date Reviewed: 02/09/2018 Reviewed by: Esteban (aBldev) BALDEV Holloway - Fully Assessed Reason for Visit: Follow Up [171] Cmt: swallowing problem Visit Diagnosis:Esophageal dysphagia [R13.10] Prescriptions as of 02/09/2018 Sig: OXYCODONE-ACETAMINOPHEN 5 MG-* ZOLPIDEM ER 12.5 MG TABLET,EX* Take 1 tablet by mouth at bed* CHOLECALCIFEROL (VITAMIN D3) * Take 1 capsule by mouth once * LEVOTHYROXINE 50 MCG TABLET Take one tablet by mouth once* LAMOTRIGINE 100 MG TABLET Take 1 tablet by mouth twice * ARIPIPRAZOLE 5 MG TABLET Take 2 tablets by mouth once * ZOLEDRONIC ACID 5 MG/100 ML I* Inject 100 mL intravenously e* DICLOFENAC 1 % TOPICAL GEL Apply 2 g to affected area fo* OTEZLA ORAL Take 30 mg by mouth twice lulu* STOOL SOFTENER ORAL Take 1 tablet by mouth twice * VITAMIN C ORAL Take 1 tablet by mouth once d* BIOTIN 10,000 MCG CAPSULE Take 15,000 mcg by mouth twic* COENZYME Q10 200 MG CAPSULE Take 200 mg by mouth twice da* PREGABALIN 150 MG CAPSULE Take 1 capsule by mouth once * Patient taking differently: Take 150 mg by mouth twice da* MAGNESIUM ORAL Take 1 tablet by mouth twice * PROBIOTIC ORAL Take 1 capsule by mouth daily* CYANOCOBALAMIN (VIT B-12) 1,0* Take 1,000 mcg by mouth once * IRON PS COMPLEX-ASCORBIC ACID* Take 1 tablet by mouth daily * LIDOCAINE 5 % TOPICAL PATCH Apply one patch to each hip d* MULTIVITAMIN TABLET daily NALOXEGOL 25 MG TABLET Take 1 tablet by mouth once d* Patient not taking: Reported on 02/09/2018 CPAP Mask (per patient preference)* ARIPIPRAZOLE 5 MG TABLET Take 2 tablets by mouth once * ONDANSETRON 4 MG DISINTEGRATI* Take 1 tablet by mouth every * Patient not taking: Reported on 02/09/2018 DOCUSATE SODIUM 100 MG CAPSULE Take 100 mg by mouth twice da* TRAZODONE 100 MG TABLET Take 3 tablets by mouth daily* Patient not taking: Reported on 01/28/2018 COMPOUNDED PRESCRIPTION Powerstep full length insert * CPAP AutoSV EPAP min= 12 cmH2O, PS* OXYBUTYNIN CHLORIDE ER 10 MG * Take 10 mg by mouth once vashti* B COMPLEX TABLET,EXTENDED REL* Take one(1) tablet daily. Medication notes this encounter CYANOCOBALAMIN (VIT B-12) 1,000 MCG LOZENGES >> Esteban Holloway LPN, LPN 02/09/2018 3:04 PM >> ESTEBAN HOLLOWAY Feb 09, 2018 3:04 PM >> Esteban Holloway LPN, LPN 02/09/2018 3:05 PM >> ESTEBAN HOLLOWAY Feb 09, 2018 3:05 PM Takes sporadically ARIPIPRAZOLE 5 MG TABLET >> Esteban Holloway LPN, LPN 02/09/2018 3:04 PM >> ESTEBAN HOLLOWAY Feb 09, 2018 3:04 PM Duplicate DOCUSATE SODIUM 100 MG CAPSULE >> Esteban Holloway LPN, TRANSIT MIX OPERATOR 02/09/2018 3:05 PM >> ESTEBAN HOLLOWAY Feb 09, 2018 3:05 PM Duplicate More... More... Problem List As Of Date 02/09/2018 Noted Resolved Obesity, unspecified [E66.9] INVALID FOR*09/18/2012 More... More... Depressive disorder, not elsewhere classified [*INVALID FOR*10/21/2012 More... Mixed hyperlipidemia [E78.2] INVALID FOR* More... BONE AND CARTILAGE DIS NOS [M89.9, M94.9] INVALID FOR* More... Hypothyroidism [E03.9] INVALID FOR* More... Unspecified sleep apnea [G47.30] INVALID FOR*06/20/2014 More... More... Radiculopathy, lumbar region [M54.16] INVALID FOR* More... More... DISC DIS NEC/NOS-THORAC [M51.9] INVALID FOR* More... CERVICALGIA [M54.2] INVALID FOR* More... More... More... Vitamin D deficiency [E55.9] INVALID FOR* More... More... Insomnia [G47.00] 04/13/2014 Chronic insomnia [F51.04] INVALID FOR*04/13/2014 Class: Chronic More... 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 Obstructive Sleep apnea - AHI 48 [G47.33] INVALID FOR* Osteoporosis, unspecified [M81.0] INVALID FOR*08/09/2014 Osteoporosis [M81.0] INVALID FOR* More... Central sleep apnea in conditions classified el*INVALID FOR* DDD (degenerative disc disease), cervical [M50.*INVALID FOR* DDD (degenerative disc disease), lumbar [M51.36]INVALID FOR* Chronic pain [G89.29] INVALID FOR* Memory deficits [R41.3] INVALID FOR* Onychomycosis [B35.1] INVALID FOR* More... Psoriatic arthritis (HCC) [L40.50] INVALID FOR* Rotator cuff arthropathy, left [M12.812] INVALID FOR* Cervical radiculopathy [M54.12] INVALID FOR* Chronic bilateral low back pain with bilateral *INVALID FOR* Epigastric abdominal pain [R10.13] INVALID FOR* More... History of gastric bypass [Z98.84] INVALID FOR* More... Central sleep apnea due to medical condition [G*INVALID FOR* Disposition: Return in about 6 months (around 08/09/2018). Follow-up and Disposition History Recorded Encounter Status:Closed by ANA CONTRERAS MD on 02/09/18 PROGRESS Observed: 02/09/2018 Status: COMPLETED Source: [place] 3:07 PM [facility] [place] REPOSITORY HNO ID: [id number] Author: Esteban Quesada) BALDEV Holloway Service: (none) Author Type: LICENSED NURSE Type: Progress Notes Filed: 02/09/2018 3:38 PM Note Text: Follow Up Visit There were no vitals filed for this visit. Current Medications: Current Outpatient Prescriptions: oxyCODONE-acetaminophen (PERCOCET) 5-325 mg tablet Disp: Rfl: Zolpidem (AMBIEN CR) 12.5 mg CR tablet Take 1 tablet by mouth at bedtime as needed for Sedation (generic acceptable) for up to 90 days. Disp: 90 tablet Rfl: 0 cholecalciferol, Vitamin D3, (VITAMIN D3) 50,000 unit cap capsule Take 1 capsule by mouth once each week. Disp: 12 capsule Rfl: 4 levothyroxine (SYNTHROID) 50 mcg tablet Take one tablet by mouth once daily, and 1/2 tablet on Sundays. Disp: 90 tablet Rfl: 3 lamoTRIgine (LAMICTAL) 100 mg tablet Take 1 tablet by mouth twice daily. Disp: 60 tablet Rfl: 5 ARIPiprazole (ABILIFY) 5 mg tablet Take 2 tablets by mouth once daily. Disp: 180 tablet Rfl: 3 zoledronic acid (RECLAST) 5 mg/100 mL pgbk PREMIX piggyback Inject 100 mL intravenously every year. Disp: 100 mL Rfl: 0 diclofenac sodium (VOLTAREN) 1 % topical gel Apply 2 g to affected area four times daily. Disp: 1 Tube Rfl: 1 APREMILAST (OTEZLA ORAL) Take 30 mg by mouth twice daily. Disp: Rfl: DOCUSATE CALCIUM (STOOL SOFTENER ORAL) Take 1 tablet by mouth twice daily. Disp: Rfl: ASCORBIC ACID (VITAMIN C ORAL) Take 1 tablet by mouth once daily. Disp: Rfl: Biotin 10,000 mcg cap Take 15,000 mcg by mouth twice daily. Disp: Rfl: Coenzyme Q10 200 mg cap Take 200 mg by mouth twice daily. Disp: Rfl: pregabalin 150 mg capsule Take 1 capsule by mouth once daily. Dr Lance (Patient taking differently: Take 150 mg by mouth twice daily. Dr Lance) Disp: Rfl: MAGNESIUM OXIDE/MAG AA CHELATE (MAGNESIUM ORAL) Take 1 tablet by mouth twice daily. Disp: Rfl: LACTOBACILLUS RHAMNOSUS GG (PROBIOTIC ORAL) Take 1 capsule by mouth daily at bedtime. Disp: Rfl: Cyanocobalamin (VITAMIN B-12) 1,000 mcg ORAL Lozg Take 1,000 mcg by mouth once daily. Disp: Rfl: FE PS CMPLX/ASCORBIC ACID (IRON PS COMPLEX-ASCORBIC ACID ORAL) Take 1 tablet by mouth daily at bedtime. Disp: Rfl: LIDOCAINE 5 % (700 MG/PATCH) ADHESIVE PATCH Apply one patch to each hip daily. Remove patch after 12 hours. as needed Disp: 180 Rfl: 1 MULTIVITAMIN TAB daily Disp: Rfl: naloxegol (MOVANTIK) 25 mg tablet Take 1 tablet by mouth once daily. (Patient not taking: Reported on 02/09/2018 ) Disp: 90 tablet Rfl: 3 CPAP Mask (per patient preference) optional chin strap (if indicated), filters, tubing / heated tubing, heated humidity and lifetime supplies. Dx. JUVENAL G47.33 327.23 Disp: 1 Device Rfl: 11 ARIPiprazole (ABILIFY) 5 mg tablet Take 2 tablets by mouth once daily. Disp: 20 tablet Rfl: 0 ondansetron orally disintegrating (ZOFRAN ODT) 4 mg disintegrating tablet Take 1 tablet by mouth every 6 hours as needed for Nausea/Vomiting. (Patient not taking: Reported on 02/09/2018 ) Disp: 10 tablet Rfl: 0 docusate sodium (COLACE) 100 mg capsule Take 100 mg by mouth twice daily. Disp: Rfl: traZODone (DESYREL) 100 mg tablet Take 3 tablets by mouth daily at bedtime. (Patient not taking: Reported on 01/28/2018 ) Disp: 270 tablet Rfl: 3 COMPOUNDED PRESCRIPTION Powerstep full length insert(M72.2) Plantar fasciitis of right foot (primary encounter diagnosis) Disp: 1 Device Rfl: 0 CPAP AutoSV EPAP min= 12 cmH2O, PS min-max = [id number], Max pressure = 25 cmH2O, Rate =Auto, lifetime supplies, Dx: G47.33, G47.37 Disp: 1 Device Rfl: 0 oxybutynin XL (DITROPAN XL) 10 mg 24 hr tablet Take 10 mg by mouth once daily. Disp: Rfl: vitamin b complex(B COMPLEX TAB) Take one(1) tablet daily. Disp: Rfl: 0 No current facility-administered medications for this visit. Follow up regarding:Esophageal dysmotility Interval Events: Subjective: Patient took a trial of Movantik 4 pills. Swallowing did not improve while taking the Movantik. History of a Domenico-en-Y gastrojejunostomy. History of previously noted widely patent GE junction. No achalasia abut with severe esophageal dysmotility per barium esophagram performed in 08/2017. Ingested barium coated chicken and the majority of the chicken remained in the esophagus.per barium esophagram performed in 10/2017. Weight has increased by 10 pounds since 10/2017. She currenty is eating Healthy Choice dinners. Objective: Deferred Impression: Dysphagia associated with significant esophageal dysmotility Chronic ipoids Plan: Continue current methods of eating except slow pace of eating. OV in 6 months The majority of the visit was spent counseling and/or coordinating care for the patient. Mgwb-sn-fmfo time was 15 minutes. Ana Contreras MD PROGRESS Observed: 01/28/2018 Status: COMPLETED Source: [place] 2:04 PM [facility] [place] REPOSITORY HNO ID: [id number] Author: Yair Kinney (Fel) Service: (none) Author Type: Fellow Type: Progress Notes Filed: 01/28/2018 2:27 PM Note Text: Self referral Feels she can see better when lifts eyelids with her finger. Has been getting glasses changed because she feels vision is blurred. Thinks vision is worse at night time, and feels like is constantly moving glasses to get the sweet spot. Does have heaviness of the eyelids. Feels eyes water a lot as well. Right side has more epiphora than left. POH: no surgeries or eyedrops. Wears glasses. adl dec reading tear production: dec tfbul nl v1 [facility] full eom Crease 10,11 bul bul derm, not to lid margins. mrd 3, 3 lf 16, 16 ll steatobleparon. Festoons r>l SPK ou, left more than right. Dry Eye Syndrome - Mild-Mod signs of dry eye of both eyes. - Warm compresses with heat mask - start 2x per day for 10 minutes. - Eyelid scrubs: scrub pads (Ocu-Sof brand) or use Baby Shampoo. - Artificial Tears 4 times a day in each eye Dermatochalasis - not to eyelid margin bilaterally - HVF 17 diff on both eyelids - not likely primary cause of her visual symptoms. - Discussed likely cosmetic bleph at this time, vs monitoring. - Patient opts to monitor and consider surgery when becomes functional dermatochalasis. I have confirmed and edited as necessary the relevant ophthalmic history, ROS, and the neuro exam findings as obtained by others. I have seen and examined this patient. I have discussed the case and the management of this patient's care with the Resident/Fellow, if applicable. I also have reviewed and agree with the assessment and plan as stated above and agree with all of its relevant components. Yair Kinney MD Ophthalmic Plastic and Reconstructive Fellow PROGRESS Observed: 01/19/2018 Status: COMPLETED Source: [place] 11:17 AM [facility] [place] REPOSITORY O ID: [id number] Author: Antoinette (Lou) LOU Newton Service: (none) Author Type: Registered Nurse Type: Progress Notes Filed: 01/19/2018 12:15 PM Note Text: Follow Up Visit 01/19/18 1115 BP: 88/58 Pulse: 68 Resp: 16 Weight: 52.8 kg (116 lb 6.4 oz) Height: 152.4 cm (5') Current Medications: Current Outpatient Prescriptions: CPAP Mask (per patient preference) optional chin strap (if indicated), filters, tubing / heated tubing, heated humidity and lifetime supplies. Dx. JUVENAL G47.33 327.23 Disp: 1 Device Rfl: 11 naloxegol (MOVANTIK) 25 mg tablet Take 1 tablet by mouth once daily. Disp: 90 tablet Rfl: 3 ARIPiprazole (ABILIFY) 5 mg tablet Take 2 tablets by mouth once daily. Disp: 20 tablet Rfl: 0 Zolpidem (AMBIEN CR) 12.5 mg CR tablet Take 1 tablet by mouth at bedtime as needed for Sedation (generic acceptable) for up to 90 days. Disp: 90 tablet Rfl: 0 cholecalciferol, Vitamin D3, (VITAMIN D3) 50,000 unit cap capsule Take 1 capsule by mouth once each week. Disp: 12 capsule Rfl: 4 levothyroxine (SYNTHROID) 50 mcg tablet Take one tablet by mouth once daily, and 1/2 tablet on Sundays. Disp: 90 tablet Rfl: 3 ondansetron orally disintegrating (ZOFRAN ODT) 4 mg disintegrating tablet Take 1 tablet by mouth every 6 hours as needed for Nausea/Vomiting. Disp: 10 tablet Rfl: 0 docusate sodium (COLACE) 100 mg capsule Take 100 mg by mouth twice daily. Disp: Rfl: lamoTRIgine (LAMICTAL) 100 mg tablet Take 1 tablet by mouth twice daily. Disp: 60 tablet Rfl: 5 traZODone (DESYREL) 100 mg tablet Take 3 tablets by mouth daily at bedtime. Disp: 270 tablet Rfl: 3 ARIPiprazole (ABILIFY) 5 mg tablet Take 2 tablets by mouth once daily. Disp: 180 tablet Rfl: 3 zoledronic acid (RECLAST) 5 mg/100 mL pgbk PREMIX piggyback Inject 100 mL intravenously every year. Disp: 100 mL Rfl: 0 CPAP AutoSV EPAP min= 12 cmH2O, PS min-max = [id number], Max pressure = 25 cmH2O, Rate =Auto, lifetime supplies, Dx: G47.33, G47.37 Disp: 1 Device Rfl: 0 diclofenac sodium (VOLTAREN) 1 % topical gel Apply 2 g to affected area four times daily. Disp: 1 Tube Rfl: 1 APREMILAST (OTEZLA ORAL) Take 30 mg by mouth twice daily. Disp: Rfl: DOCUSATE CALCIUM (STOOL SOFTENER ORAL) Take 1 tablet by mouth twice daily. Disp: Rfl: oxybutynin XL (DITROPAN XL) 10 mg 24 hr tablet Take 10 mg by mouth once daily. Disp: Rfl: Biotin 10,000 mcg cap Take 15,000 mcg by mouth twice daily. Disp: Rfl: Coenzyme Q10 200 mg cap Take 200 mg by mouth twice daily. Disp: Rfl: pregabalin 150 mg capsule Take 1 capsule by mouth once daily. Dr Lance (Patient taking differently: Take 150 mg by mouth twice daily. Dr Lance) Disp: Rfl: MAGNESIUM OXIDE/MAG AA CHELATE (MAGNESIUM ORAL) Take 1 tablet by mouth twice daily. Disp: Rfl: LACTOBACILLUS RHAMNOSUS GG (PROBIOTIC ORAL) Take 1 capsule by mouth daily at bedtime. Disp: Rfl: Cyanocobalamin (VITAMIN B-12) 1,000 mcg ORAL Lozg Take 1,000 mcg by mouth once daily. Disp: Rfl: FE PS CMPLX/ASCORBIC ACID (IRON PS COMPLEX-ASCORBIC ACID ORAL) Take 1 tablet by mouth daily at bedtime. Disp: Rfl: LIDOCAINE 5 % (700 MG/PATCH) ADHESIVE PATCH Apply one patch to each hip daily. Remove patch after 12 hours. as needed Disp: 180 Rfl: 1 MULTIVITAMIN TAB daily Disp: Rfl: COMPOUNDED PRESCRIPTION Powerstep full length insert(M72.2) Plantar fasciitis of right foot (primary encounter diagnosis) (Patient not taking: Reported on 10/06/2017 ) Disp: 1 Device Rfl: 0 ASCORBIC ACID (VITAMIN C ORAL) Take 1 tablet by mouth once daily. Disp: Rfl: vitamin b complex(B COMPLEX TAB) Take one(1) tablet daily. Disp: Rfl: 0 No current facility-administered medications for this visit. Follow up regarding:Esophageal dysmotility R/O secondary to primary dysmotility exacerbated by opioids ?S/P gastric by pass ?Chronic opioid use ? Constipation Interval Events: Subjective: Patient continues to take Percocet. She notes dysphagia with and odynophagia. CT of the spine performed in 05/29/2017, was remarkable for: IMPRESSION: Spondylosis in the upper thoracic spine with anterior disc height loss and type I anterior degenerative endplate changes in the body the report. Moderate lumbar spondylosis most significantly at L3-4 where there is anterolisthesis and degenerative facet arthropathy facet edema. No high-grade canal stenosis. Small bilateral pleural effusions. Topical pain medication and TENS units have helped but are not completely successful. Patient's insurance currently declined payment for Movantik 25 mg a mouth daily Objective: Deferred Impression: Dysphagia with and odynophagia. Plan: Trial of Movantik self pay . Patient also try to obtain medication on a compassionate Basis from the company [facility] in 3 weeks The majority of the visit was spent counseling and/or coordinating care for the patient. Sqoy-uv-krfz time was 15 minutes. Ana Contreras MD CNOV Observed: 01/19/2018 Status: COMPLETED Source: [place] 11:00 AM [facility] [place] REPOSITORY Office Visit (GASTSP) FRANNIE ROMO ([id number]) 1950 [address] [facility] Date Time Provider Department 01/19/18 11:00 AM ANA CONTRERAS [facility] During your visit today, we recorded the following information about you: Pulse Respiration Blood pressure Weight 68/minute 16/minute 88/58 52.8 kg Height 1.524 m Antoinette Newton, LOU, RN 01/19/2018 11:17 AM Signed Follow Up Visit 01/19/18 1115 BP: 88/58 Pulse: 68 Resp: 16 Weight: 52.8 kg (116 lb 6.4 oz) Height: 152.4 cm (5') Current Medications: Current Outpatient Prescriptions: CPAP Mask (per patient preference) optional chin strap (if indicated), filters, tubing / heated tubing, heated humidity and lifetime supplies. Dx. JUVENAL G47.33 327.23 Disp: 1 Device Rfl: 11 naloxegol (MOVANTIK) 25 mg tablet Take 1 tablet by mouth once daily. Disp: 90 tablet Rfl: 3 ARIPiprazole (ABILIFY) 5 mg tablet Take 2 tablets by mouth once daily. Disp: 20 tablet Rfl: 0 Zolpidem (AMBIEN CR) 12.5 mg CR tablet Take 1 tablet by mouth at bedtime as needed for Sedation (generic acceptable) for up to 90 days. Disp: 90 tablet Rfl: 0 cholecalciferol, Vitamin D3, (VITAMIN D3) 50,000 unit cap capsule Take 1 capsule by mouth once each week. Disp: 12 capsule Rfl: 4 levothyroxine (SYNTHROID) 50 mcg tablet Take one tablet by mouth once daily, and 1/2 tablet on Sundays. Disp: 90 tablet Rfl: 3 ondansetron orally disintegrating (ZOFRAN ODT) 4 mg disintegrating tablet Take 1 tablet by mouth every 6 hours as needed for Nausea/Vomiting. Disp: 10 tablet Rfl: 0 docusate sodium (COLACE) 100 mg capsule Take 100 mg by mouth twice daily. Disp: Rfl: lamoTRIgine (LAMICTAL) 100 mg tablet Take 1 tablet by mouth twice daily. Disp: 60 tablet Rfl: 5 traZODone (DESYREL) 100 mg tablet Take 3 tablets by mouth daily at bedtime. Disp: 270 tablet Rfl: 3 ARIPiprazole (ABILIFY) 5 mg tablet Take 2 tablets by mouth once daily. Disp: 180 tablet Rfl: 3 zoledronic acid (RECLAST) 5 mg/100 mL pgbk PREMIX piggyback Inject 100 mL intravenously every year. Disp: 100 mL Rfl: 0 CPAP AutoSV EPAP min= 12 cmH2O, PS min-max = [id number], Max pressure = 25 cmH2O, Rate =Auto, lifetime supplies, Dx: G47.33, G47.37 Disp: 1 Device Rfl: 0 diclofenac sodium (VOLTAREN) 1 % topical gel Apply 2 g to affected area four times daily. Disp: 1 Tube Rfl: 1 APREMILAST (OTEZLA ORAL) Take 30 mg by mouth twice daily. Disp: Rfl: DOCUSATE CALCIUM (STOOL SOFTENER ORAL) Take 1 tablet by mouth twice daily. Disp: Rfl: oxybutynin XL (DITROPAN XL) 10 mg 24 hr tablet Take 10 mg by mouth once daily. Disp: Rfl: Biotin 10,000 mcg cap Take 15,000 mcg by mouth twice daily. Disp: Rfl: Coenzyme Q10 200 mg cap Take 200 mg by mouth twice daily. Disp: Rfl: pregabalin 150 mg capsule Take 1 capsule by mouth once daily. Dr Lance (Patient taking differently: Take 150 mg by mouth twice daily. Dr Lance) Disp: Rfl: MAGNESIUM OXIDE/MAG AA CHELATE (MAGNESIUM ORAL) Take 1 tablet by mouth twice daily. Disp: Rfl: LACTOBACILLUS RHAMNOSUS GG (PROBIOTIC ORAL) Take 1 capsule by mouth daily at bedtime. Disp: Rfl: Cyanocobalamin (VITAMIN B-12) 1,000 mcg ORAL Lozg Take 1,000 mcg by mouth once daily. Disp: Rfl: FE PS CMPLX/ASCORBIC ACID (IRON PS COMPLEX-ASCORBIC ACID ORAL) Take 1 tablet by mouth daily at bedtime. Disp: Rfl: LIDOCAINE 5 % (700 MG/PATCH) ADHESIVE PATCH Apply one patch to each hip daily. Remove patch after 12 hours. as needed Disp: 180 Rfl: 1 MULTIVITAMIN TAB daily Disp: Rfl: COMPOUNDED PRESCRIPTION Powerstep full length insert(M72.2) Plantar fasciitis of right foot (primary encounter diagnosis) (Patient not taking: Reported on 10/06/2017 ) Disp: 1 Device Rfl: 0 ASCORBIC ACID (VITAMIN C ORAL) Take 1 tablet by mouth once daily. Disp: Rfl: vitamin b complex(B COMPLEX TAB) Take one(1) tablet daily. Disp: Rfl: 0 No current facility-administered medications for this visit. Follow up regarding:Esophageal dysmotility R/O secondary to primary dysmotility exacerbated by opioids ?S/P gastric by pass ?Chronic opioid use ? Constipation Interval Events: Subjective: Patient continues to take Percocet. She notes dysphagia with and odynophagia. CT of the spine performed in 05/29/2017, was remarkable for: IMPRESSION: Spondylosis in the upper thoracic spine with anterior disc height loss and type I anterior degenerative endplate changes in the body the report. Moderate lumbar spondylosis most significantly at L3-4 where there is anterolisthesis and degenerative facet arthropathy facet edema. No high-grade canal stenosis. Small bilateral pleural effusions. Topical pain medication and TENS units have helped but are not completely successful. Patient's insurance currently declined payment for Movantik 25 mg a mouth daily Objective: Deferred Impression: Dysphagia with and odynophagia. Plan: Trial of Movantik self pay . Patient also try to obtain medication on a compassionate Basis from the company [facility] in 3 weeks The majority of the visit was spent counseling and/or coordinating care for the patient. Jdpg-iw-hbyt time was 15 minutes. Ana Contreras MD Referring Provider: ANA CONTRERAS [[id number]] Allergies As of Date: 01/19/2018 Noted Allergy Reaction EFFEXOR (VENLAFAXINE HCL) 01/01/2010 5 - Intolerance Comments: headaches ANTICHOLINERGICS - QUATERNARY 01/04/2003 Comments: cogentin Codiene [Other] 01/04/2003 Comments: chest pain COGENTIN (BENZTROPINE MESYLATE) 03/16/2008 Comments: Body went rigid dex rachelle [Other] 03/16/2008 Comments: Medrol dose pack: hallucinatios, diff walking KEFLEX (CEPHALEXIN) 12/18/2011 5 - Intolerance Comments: makes pt too drowsy PHENOTHIAZINES 01/04/2003 Comments: compazine-1 sided facial weakness (like stroke) ROXICET (OXYCODONE-ACETAMINOPHEN) 03/15/2010 9 - Itching Date Reviewed: 01/19/2018 Reviewed by: Antoinette (Rn) LOU Newton - Fully Assessed Reason for Visit: Follow Up [171] Primary Visit Diagnosis:Esophageal dysmotility [K22.4] Order(s):naloxegol (MOVANTIK) 25 mg tabletTake 1 tablet by mouth once daily.Disp: 90 tabletRfl: 3 Prescriptions as of 01/19/2018 Sig: NALOXEGOL 25 MG TABLET Take 1 tablet by mouth once d* CPAP Mask (per patient preference)* ARIPIPRAZOLE 5 MG TABLET Take 2 tablets by mouth once * ZOLPIDEM ER 12.5 MG TABLET,EX* Take 1 tablet by mouth at bed* CHOLECALCIFEROL (VITAMIN D3) * Take 1 capsule by mouth once * LEVOTHYROXINE 50 MCG TABLET Take one tablet by mouth once* ONDANSETRON 4 MG DISINTEGRATI* Take 1 tablet by mouth every * DOCUSATE SODIUM 100 MG CAPSULE Take 100 mg by mouth twice da* LAMOTRIGINE 100 MG TABLET Take 1 tablet by mouth twice * TRAZODONE 100 MG TABLET Take 3 tablets by mouth daily* ARIPIPRAZOLE 5 MG TABLET Take 2 tablets by mouth once * ZOLEDRONIC ACID 5 MG/100 ML I* Inject 100 mL intravenously e* CPAP AutoSV EPAP min= 12 cmH2O, PS* DICLOFENAC 1 % TOPICAL GEL Apply 2 g to affected area fo* OTEZLA ORAL Take 30 mg by mouth twice lulu* STOOL SOFTENER ORAL Take 1 tablet by mouth twice * OXYBUTYNIN CHLORIDE ER 10 MG * Take 10 mg by mouth once vashti* BIOTIN 10,000 MCG CAPSULE Take 15,000 mcg by mouth twic* COENZYME Q10 200 MG CAPSULE Take 200 mg by mouth twice da* PREGABALIN 150 MG CAPSULE Take 1 capsule by mouth once * Patient taking differently: Take 150 mg by mouth twice da* MAGNESIUM ORAL Take 1 tablet by mouth twice * PROBIOTIC ORAL Take 1 capsule by mouth daily* CYANOCOBALAMIN (VIT B-12) 1,0* Take 1,000 mcg by mouth once * IRON PS COMPLEX-ASCORBIC ACID* Take 1 tablet by mouth daily * LIDOCAINE 5 % TOPICAL PATCH Apply one patch to each hip d* MULTIVITAMIN TABLET daily COMPOUNDED PRESCRIPTION Powerstep full length insert * Patient not taking: Reported on 10/06/2017 VITAMIN C ORAL Take 1 tablet by mouth once d* B COMPLEX TABLET,EXTENDED REL* Take one(1) tablet daily. More... More... Problem List As Of Date 01/19/2018 Noted Resolved Obesity, unspecified [E66.9] INVALID FOR*09/18/2012 More... More... Depressive disorder, not elsewhere classified [*INVALID FOR*10/21/2012 More... Mixed hyperlipidemia [E78.2] INVALID FOR* More... BONE AND CARTILAGE DIS NOS [M89.9, M94.9] INVALID FOR* More... Hypothyroidism [E03.9] INVALID FOR* More... Unspecified sleep apnea [G47.30] INVALID FOR*06/20/2014 More... More... Radiculopathy, lumbar region [M54.16] INVALID FOR* More... More... DISC DIS NEC/NOS-THORAC [M51.9] INVALID FOR* More... CERVICALGIA [M54.2] INVALID FOR* More... More... More... Vitamin D deficiency [E55.9] INVALID FOR* More... More... Insomnia [G47.00] 04/13/2014 Chronic insomnia [F51.04] INVALID FOR*04/13/2014 Class: Chronic More... 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 Obstructive Sleep apnea - AHI 48 [G47.33] INVALID FOR* Osteoporosis, unspecified [M81.0] INVALID FOR*08/09/2014 Osteoporosis [M81.0] INVALID FOR* More... Central sleep apnea in conditions classified el*INVALID FOR* DDD (degenerative disc disease), cervical [M50.*INVALID FOR* DDD (degenerative disc disease), lumbar [M51.36]INVALID FOR* Chronic pain [G89.29] INVALID FOR* Memory deficits [R41.3] INVALID FOR* Onychomycosis [B35.1] INVALID FOR* More... Psoriatic arthritis (HCC) [L40.50] INVALID FOR* Rotator cuff arthropathy, left [M12.812] INVALID FOR* Cervical radiculopathy [M54.12] INVALID FOR* Chronic bilateral low back pain with bilateral *INVALID FOR* Epigastric abdominal pain [R10.13] INVALID FOR* More... History of gastric bypass [Z98.84] INVALID FOR* More... Central sleep apnea due to medical condition [G*INVALID FOR* Prescriptions ordered this encounter Disp Refills Start End NALOXEGOL 25 MG TABLET 90 t* 3 01/19/2018 Route: ORAL Sig: Take 1 tablet by mouth once daily. Medications Discontinued During This Encounter naloxegol (MOVANTIK) 25 mg tablet 90 t* 3 12/31/2017 01/19/2018 Class: [facility] Route: ORAL Sig: Take 1 tablet by mouth once daily. Disc: Reason for discontinue is not on file. Disposition: Return in about 3 weeks (around 02/09/2018). Follow-up and Disposition History Recorded Encounter Status:Closed by ANA CONTRERAS MD on 01/19/18 PROGRESS Observed: 12/24/2017 Status: COMPLETED Source: [place] 11:46 AM [facility] [place] REPOSITORY HNO ID: [id number] Author: Ana Contreras Service: (none) Author Type: Physician Type: Progress Notes Filed: 12/24/2017 12:02 PM Note Text: Follow Up Visit 12/24/17 1136 BP: 86/56 Pulse: 73 Temp: 37.1 ?C (98.8 ?F) TempSrc: Oral Weight: 50.8 kg (112 lb) Height: 152.4 cm (5') Current Medications: Current Outpatient Prescriptions: ARIPiprazole (ABILIFY) 5 mg tablet Take 2 tablets by mouth once daily. Disp: 20 tablet Rfl: 0 CPAP Mask (per patient preference) optional chin strap (if indicated), filters, tubing / heated tubing, heated humidity and lifetime supplies. Dx. JUVENAL G47.33 327.23 Disp: 1 Device Rfl: 0 Zolpidem (AMBIEN CR) 12.5 mg CR tablet Take 1 tablet by mouth at bedtime as needed for Sedation (generic acceptable) for up to 90 days. Disp: 90 tablet Rfl: 0 cholecalciferol, Vitamin D3, (VITAMIN D3) 50,000 unit cap capsule Take 1 capsule by mouth once each week. Disp: 12 capsule Rfl: 4 levothyroxine (SYNTHROID) 50 mcg tablet Take one tablet by mouth once daily, and 1/2 tablet on Sundays. Disp: 90 tablet Rfl: 3 ondansetron orally disintegrating (ZOFRAN ODT) 4 mg disintegrating tablet Take 1 tablet by mouth every 6 hours as needed for Nausea/Vomiting. Disp: 10 tablet Rfl: 0 docusate sodium (COLACE) 100 mg capsule Take 100 mg by mouth twice daily. Disp: Rfl: lamoTRIgine (LAMICTAL) 100 mg tablet Take 1 tablet by mouth twice daily. Disp: 60 tablet Rfl: 5 traZODone (DESYREL) 100 mg tablet Take 3 tablets by mouth daily at bedtime. Disp: 270 tablet Rfl: 3 COMPOUNDED PRESCRIPTION Powerstep full length insert(M72.2) Plantar fasciitis of right foot (primary encounter diagnosis) (Patient not taking: Reported on 10/06/2017 ) Disp: 1 Device Rfl: 0 ARIPiprazole (ABILIFY) 5 mg tablet Take 2 tablets by mouth once daily. Disp: 180 tablet Rfl: 3 zoledronic acid (RECLAST) 5 mg/100 mL pgbk PREMIX piggyback Inject 100 mL intravenously every year. Disp: 100 mL Rfl: 0 CPAP AutoSV EPAP min= 12 cmH2O, PS min-max = [id number], Max pressure = 25 cmH2O, Rate =Auto, lifetime supplies, Dx: G47.33, G47.37 Disp: 1 Device Rfl: 0 diclofenac sodium (VOLTAREN) 1 % topical gel Apply 2 g to affected area four times daily. Disp: 1 Tube Rfl: 1 APREMILAST (OTEZLA ORAL) Take 30 mg by mouth twice daily. Disp: Rfl: DOCUSATE CALCIUM (STOOL SOFTENER ORAL) Take 1 tablet by mouth twice daily. Disp: Rfl: oxybutynin XL (DITROPAN XL) 10 mg 24 hr tablet Take 10 mg by mouth once daily. Disp: Rfl: ASCORBIC ACID (VITAMIN C ORAL) Take 1 tablet by mouth once daily. Disp: Rfl: Biotin 10,000 mcg cap Take 15,000 mcg by mouth twice daily. Disp: Rfl: Coenzyme Q10 200 mg cap Take 200 mg by mouth twice daily. Disp: Rfl: pregabalin 150 mg capsule Take 1 capsule by mouth once daily. Dr Lance (Patient taking differently: Take 150 mg by mouth twice daily. Dr Lance) Disp: Rfl: MAGNESIUM OXIDE/MAG AA CHELATE (MAGNESIUM ORAL) Take 1 tablet by mouth twice daily. Disp: Rfl: LACTOBACILLUS RHAMNOSUS GG (PROBIOTIC ORAL) Take 1 capsule by mouth daily at bedtime. Disp: Rfl: Cyanocobalamin (VITAMIN B-12) 1,000 mcg ORAL Lozg Take 1,000 mcg by mouth once daily. Disp: Rfl: FE PS CMPLX/ASCORBIC ACID (IRON PS COMPLEX-ASCORBIC ACID ORAL) Take 1 tablet by mouth daily at bedtime. Disp: Rfl: LIDOCAINE 5 % (700 MG/PATCH) ADHESIVE PATCH Apply one patch to each hip daily. Remove patch after 12 hours. as needed Disp: 180 Rfl: 1 MULTIVITAMIN TAB daily Disp: Rfl: vitamin b complex(B COMPLEX TAB) Take one(1) tablet daily. Disp: Rfl: 0 No current facility-administered medications for this visit. Follow up regarding:Impression: Esophageal dysmotility R/O secondary to primary dysmotility exacerbated by opioids S/P gastric by pass Chronic opioid use Constipation Interval Events: Subjective:Patient continues to take Percocet. She notes dysphagia with and odynophagia. Vomitng times 2 since last OV. Constipation persisits Objective: Deferred Impression: Esophageal dysmotility R/O secondary to primary dysmotility exacerbated by opioids S/P gastric by pass Chronic opioid use Constipation Plan: Movantik 25 mg daily OV in one month The majority of the visit was spent counseling and/or coordinating care for the patient. Fsxr-za-pghc time was 15 minutes. Ana Contreras MD CNOV Observed: 12/24/2017 Status: COMPLETED Source: [place] 11:00 AM [facility] [place] RE[place]ITORY Office Visit ([facility]ST[facility]) FRANNIE ROMO ([id number]) 1950 [address] [facility] Date Time Provider Department 12/24/17 11:00 AM ANA CONTRERAS [facility] During your visit today, we recorded the following information about you: Temperature Pulse Blood pressure Weight 98.8 degrees 73/minute 86/56 50.8 kg Height 1.524 m Ana Contreras MD 12/24/2017 12:02 PM Signed Follow Up Visit 12/24/17 1136 BP: 86/56 Pulse: 73 Temp: 37.1 ?C (98.8 ?F) TempSrc: Oral Weight: 50.8 kg (112 lb) Height: 152.4 cm (5') Current Medications: Current Outpatient Prescriptions: ARIPiprazole (ABILIFY) 5 mg tablet Take 2 tablets by mouth once daily. Disp: 20 tablet Rfl: 0 CPAP Mask (per patient preference) optional chin strap (if indicated), filters, tubing / heated tubing, heated humidity and lifetime supplies. Dx. JUVENAL G47.33 327.23 Disp: 1 Device Rfl: 0 Zolpidem (AMBIEN CR) 12.5 mg CR tablet Take 1 tablet by mouth at bedtime as needed for Sedation (generic acceptable) for up to 90 days. Disp: 90 tablet Rfl: 0 cholecalciferol, Vitamin D3, (VITAMIN D3) 50,000 unit cap capsule Take 1 capsule by mouth once each week. Disp: 12 capsule Rfl: 4 levothyroxine (SYNTHROID) 50 mcg tablet Take one tablet by mouth once daily, and 1/2 tablet on Sundays. Disp: 90 tablet Rfl: 3 ondansetron orally disintegrating (ZOFRAN ODT) 4 mg disintegrating tablet Take 1 tablet by mouth every 6 hours as needed for Nausea/Vomiting. Disp: 10 tablet Rfl: 0 docusate sodium (COLACE) 100 mg capsule Take 100 mg by mouth twice daily. Disp: Rfl: lamoTRIgine (LAMICTAL) 100 mg tablet Take 1 tablet by mouth twice daily. Disp: 60 tablet Rfl: 5 traZODone (DESYREL) 100 mg tablet Take 3 tablets by mouth daily at bedtime. Disp: 270 tablet Rfl: 3 COMPOUNDED PRESCRIPTION Powerstep full length insert(M72.2) Plantar fasciitis of right foot (primary encounter diagnosis) (Patient not taking: Reported on 10/06/2017 ) Disp: 1 Device Rfl: 0 ARIPiprazole (ABILIFY) 5 mg tablet Take 2 tablets by mouth once daily. Disp: 180 tablet Rfl: 3 zoledronic acid (RECLAST) 5 mg/100 mL pgbk PREMIX piggyback Inject 100 mL intravenously every year. Disp: 100 mL Rfl: 0 CPAP AutoSV EPAP min= 12 cmH2O, PS min-max = [id number], Max pressure = 25 cmH2O, Rate =Auto, lifetime supplies, Dx: G47.33, G47.37 Disp: 1 Device Rfl: 0 diclofenac sodium (VOLTAREN) 1 % topical gel Apply 2 g to affected area four times daily. Disp: 1 Tube Rfl: 1 APREMILAST (OTEZLA ORAL) Take 30 mg by mouth twice daily. Disp: Rfl: DOCUSATE CALCIUM (STOOL SOFTENER ORAL) Take 1 tablet by mouth twice daily. Disp: Rfl: oxybutynin XL (DITROPAN XL) 10 mg 24 hr tablet Take 10 mg by mouth once daily. Disp: Rfl: ASCORBIC ACID (VITAMIN C ORAL) Take 1 tablet by mouth once daily. Disp: Rfl: Biotin 10,000 mcg cap Take 15,000 mcg by mouth twice daily. Disp: Rfl: Coenzyme Q10 200 mg cap Take 200 mg by mouth twice daily. Disp: Rfl: pregabalin 150 mg capsule Take 1 capsule by mouth once daily. Dr Lance (Patient taking differently: Take 150 mg by mouth twice daily. Dr Lance) Disp: Rfl: MAGNESIUM OXIDE/MAG AA CHELATE (MAGNESIUM ORAL) Take 1 tablet by mouth twice daily. Disp: Rfl: LACTOBACILLUS RHAMNOSUS GG (PROBIOTIC ORAL) Take 1 capsule by mouth daily at bedtime. Disp: Rfl: Cyanocobalamin (VITAMIN B-12) 1,000 mcg ORAL Lozg Take 1,000 mcg by mouth once daily. Disp: Rfl: FE PS CMPLX/ASCORBIC ACID (IRON PS COMPLEX-ASCORBIC ACID ORAL) Take 1 tablet by mouth daily at bedtime. Disp: Rfl: LIDOCAINE 5 % (700 MG/PATCH) ADHESIVE PATCH Apply one patch to each hip daily. Remove patch after 12 hours. as needed Disp: 180 Rfl: 1 MULTIVITAMIN TAB daily Disp: Rfl: vitamin b complex(B COMPLEX TAB) Take one(1) tablet daily. Disp: Rfl: 0 No current facility-administered medications for this visit. Follow up regarding:Impression: Esophageal dysmotility R/O secondary to primary dysmotility exacerbated by opioids S/P gastric by pass Chronic opioid use Constipation Interval Events: Subjective:Patient continues to take Percocet. She notes dysphagia with and odynophagia. Vomitng times 2 since last OV. Constipation persisits Objective: Deferred Impression: Esophageal dysmotility R/O secondary to primary dysmotility exacerbated by opioids S/P gastric by pass Chronic opioid use Constipation Plan: Movantik 25 mg daily OV in one month The majority of the visit was spent counseling and/or coordinating care for the patient. Elhj-at-kqem time was 15 minutes. Ana Contreras MD Referring Provider: SELF [[id number]] Allergies As of Date: 12/24/2017 Noted Allergy Reaction EFFEXOR (VENLAFAXINE HCL) 01/01/2010 5 - Intolerance Comments: headaches ANTICHOLINERGICS - QUATERNARY 01/04/2003 Comments: cogentin Codiene [Other] 01/04/2003 Comments: chest pain AMY (BENZTROPINE MESYLATE) 03/16/2008 Comments: Body went rigid dex rachelle [Other] 03/16/2008 Comments: Medrol dose pack: hallucinatios, diff walking KEFLEX (CEPHALEXIN) 12/18/2011 5 - Intolerance Comments: makes pt too drowsy PHENOTHIAZINES 01/04/2003 Comments: compazine-1 sided facial weakness (like stroke) ROXICET (OXYCODONE-ACETAMINOPHEN) 03/15/2010 9 - Itching Date Reviewed: 12/24/2017 Reviewed by: Gary (Badlev) BALDEV Jacob - Fully Assessed Reason for Visit: Follow Up [171] Cmt: issues with swallowing Primary Visit Diagnosis:Esophageal dysmotility [K22.4] Other Visit Diagnoses:Other constipation [K59.09] History of gastric bypass [Z98.84] Opioid use [F11.90] Order(s):naloxegol (MOVANTIK) 25 mg tabletTake 1 tablet by mouth once daily.Disp: 90 tabletRfl: 3 Prescriptions as of 12/24/2017 Sig: NALOXEGOL 25 MG TABLET Take 1 tablet by mouth once d* ARIPIPRAZOLE 5 MG TABLET Take 2 tablets by mouth once * CPAP Mask (per patient preference)* ZOLPIDEM ER 12.5 MG TABLET,EX* Take 1 tablet by mouth at bed* CHOLECALCIFEROL (VITAMIN D3) * Take 1 capsule by mouth once * LEVOTHYROXINE 50 MCG TABLET Take one tablet by mouth once* ONDANSETRON 4 MG DISINTEGRATI* Take 1 tablet by mouth every * DOCUSATE SODIUM 100 MG CAPSULE Take 100 mg by mouth twice da* LAMOTRIGINE 100 MG TABLET Take 1 tablet by mouth twice * TRAZODONE 100 MG TABLET Take 3 tablets by mouth daily* COMPOUNDED PRESCRIPTION Powerstep full length insert * Patient not taking: Reported on 10/06/2017 ARIPIPRAZOLE 5 MG TABLET Take 2 tablets by mouth once * ZOLEDRONIC ACID 5 MG/100 ML I* Inject 100 mL intravenously e* CPAP AutoSV EPAP min= 12 cmH2O, PS* DICLOFENAC 1 % TOPICAL GEL Apply 2 g to affected area fo* OTEZLA ORAL Take 30 mg by mouth twice lulu* STOOL SOFTENER ORAL Take 1 tablet by mouth twice * OXYBUTYNIN CHLORIDE ER 10 MG * Take 10 mg by mouth once vashti* VITAMIN C ORAL Take 1 tablet by mouth once d* BIOTIN 10,000 MCG CAPSULE Take 15,000 mcg by mouth twic* COENZYME Q10 200 MG CAPSULE Take 200 mg by mouth twice da* PREGABALIN 150 MG CAPSULE Take 1 capsule by mouth once * Patient taking differently: Take 150 mg by mouth twice da* MAGNESIUM ORAL Take 1 tablet by mouth twice * PROBIOTIC ORAL Take 1 capsule by mouth daily* CYANOCOBALAMIN (VIT B-12) 1,0* Take 1,000 mcg by mouth once * IRON PS COMPLEX-ASCORBIC ACID* Take 1 tablet by mouth daily * LIDOCAINE 5 % TOPICAL PATCH Apply one patch to each hip d* MULTIVITAMIN TABLET daily B COMPLEX TABLET,EXTENDED REL* Take one(1) tablet daily. More... More... Problem List As Of Date 12/24/2017 Noted Resolved Obesity, unspecified [E66.9] INVALID FOR*09/18/2012 More... More... Depressive disorder, not elsewhere classified [*INVALID FOR*10/21/2012 More... Mixed hyperlipidemia [E78.2] INVALID FOR* More... BONE AND CARTILAGE DIS NOS [M89.9, M94.9] INVALID FOR* More... Hypothyroidism [E03.9] INVALID FOR* More... Unspecified sleep apnea [G47.30] INVALID FOR*06/20/2014 More... More... Radiculopathy, lumbar region [M54.16] INVALID FOR* More... More... DISC DIS NEC/NOS-THORAC [M51.9] INVALID FOR* More... CERVICALGIA [M54.2] INVALID FOR* More... More... More... Vitamin D deficiency [E55.9] INVALID FOR* More... More... Insomnia [G47.00] 04/13/2014 Chronic insomnia [F51.04] INVALID FOR*04/13/2014 Class: Chronic More... 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 Obstructive Sleep apnea - AHI 48 [G47.33] INVALID FOR* More... Osteoporosis, unspecified [M81.0] INVALID FOR*08/09/2014 Osteoporosis [M81.0] INVALID FOR* More... Central sleep apnea in conditions classified el*INVALID FOR* DDD (degenerative disc disease), cervical [M50.*INVALID FOR* DDD (degenerative disc disease), lumbar [M51.36]INVALID FOR* Chronic pain [G89.29] INVALID FOR* Memory deficits [R41.3] INVALID FOR* Onychomycosis [B35.1] INVALID FOR* More... Psoriatic arthritis (HCC) [L40.50] INVALID FOR* Rotator cuff arthropathy, left [M12.812] INVALID FOR* Cervical radiculopathy [M54.12] INVALID FOR* Chronic bilateral low back pain with bilateral *INVALID FOR* Epigastric abdominal pain [R10.13] INVALID FOR* More... History of gastric bypass [Z98.84] INVALID FOR* More... Central sleep apnea due to medical condition [G*INVALID FOR* Prescriptions ordered this encounter Disp Refills Start End NALOXEGOL 25 MG TABLET 90 t* 3 12/24/2017 Route: ORAL Sig: Take 1 tablet by mouth once daily. Disposition: Return in about 1 month (around 01/23/2018). Follow-up and Disposition History Recorded Encounter Status:Closed by ANA CONTRERAS MD on 12/24/17 PROGRESS Observed: 12/03/2017 Status: COMPLETED Source: [place] 1:58 PM [facility] [place] RE[place] HNO ID: [id number] Author: Annetta Holt LPN Service: (none) Author Type: (none) Type: Progress Notes Filed: 12/03/2017 1:58 PM Note Text: please print Giovany moreno. naomy COLIN Observed: 12/03/2017 Status: COMPLETED Source: [place] 1:00 PM [facility] [place] REPOSITORY Office Visit ([place]) FRANNIE ROMO ([id number]) 1950 F [place] Date Time Provider Department 12/03/17 1:00 PM OFELIA CAR During your visit today, we recorded the following information about you: Pulse Respiration Blood pressure Weight 61/minute 16/minute 95/63 49.4 kg Ofelia Car MD 12/03/2017 1:41 PM Signed [facility] Follow-up/Established patient visit Reason for Visit at [place] : periodic Time Out: 1:40 Time In: 1:20 For this visit, a total pxok-jn-upja time with the patient comprised 20 minutes, with at least 50% of that time devoted to cgda-fu-ujjg counseling and coordination of care, with especial emphasis placed on answering the patient?s and/or family?s questions in a form that they can understand and appreciate. Relevant Medications, allergies, hx Reviewed: yes Date of last visit: 09/10/17 Insurance: Medicare Home Location: [place] Psychological/Psychiatric Developments: steady Medical and Neurological Developments: New pain medicine. Had a bad headache when extended arms up. Insomnia: some later RLS: na Other: na SLEEP-WAKE SCHEDULE Bedtime: 1 AM if taking ambien. SLEEP LATENCY: right to sleep Wake after Sleep Onset willwake after 4 hoiurs, then wakes up, sometimes with mask will come off. Then the machine will come off. Then sleeps for 4 hours of broken sleep. Wake time: now is finding herself if staying in bed too long. , without an alarm. On weekends, she maintains the same sleep schedule. Sleep Quality: earlysleep is good, later sleep is broke She may fall asleep in chairs Average total sleep time (in a 24 hour period): maybe 7 hours. Obstructive Sleep Apnea Issues: Most Recent Apnea-Hypopnea Index: 48 PAP Pressure Setting(s) ASV DME Company: [facility] Mask Type: Lisha Mask Issues: Mask comes off in middle of [facility] Download Report: na Self-Reported Compliance: 4 hours standard at least Benefit: More awake. ALLERGIES Allergen Reactions - Effexor [Venlafaxin* Intolerance headaches - Anticholinergics - * cogentin - Codiene [Other] chest pain - Cogentin [Benztropi* Body went rigid - Dex Rachelle [Other] Medrol dose pack: hallucinatios, diff walking - Keflex [Cephalexin] Intolerance makes pt too drowsy - Phenothiazines compazine-1 sided facial weakness (like stroke) - Roxicet [Oxycodone-* Itching CURRENT MEDICATIONS: cholecalciferol, Vitamin D3, (VITAMIN D3) 50,000 unit cap capsule Take 1 capsule by mouth once each week. levothyroxine (SYNTHROID) 50 mcg tablet Take one tablet by mouth once daily, and 1/2 tablet on Sundays. ondansetron orally disintegrating (ZOFRAN ODT) 4 mg disintegrating tablet Take 1 tablet by mouth every 6 hours as needed for Nausea/Vomiting. docusate sodium (COLACE) 100 mg capsule Take 100 mg by mouth twice daily. lamoTRIgine (LAMICTAL) 100 mg tablet Take 1 tablet by mouth twice daily. Zolpidem (AMBIEN CR) 12.5 mg CR tablet Take 1 tablet by mouth at bedtime as needed for Sedation (generic acceptable) for up to 90 days. traZODone (DESYREL) 100 mg tablet Take 3 tablets by mouth daily at bedtime. COMPOUNDED PRESCRIPTION Powerstep full length insert(M72.2) Plantar fasciitis of right foot (primary encounter diagnosis) ARIPiprazole (ABILIFY) 5 mg tablet Take 2 tablets by mouth once daily. zoledronic acid (RECLAST) 5 mg/100 mL pgbk PREMIX piggyback Inject 100 mL intravenously every year. CPAP Mask (per patient preference) optional chin strap (if indicated), filters, tubing / heated tubing, heated humidity and lifetime supplies. Dx. JUVENAL G47.33 327.23 CPAP AutoSV EPAP min= 12 cmH2O, PS min-max = [id number], Max pressure = 25 cmH2O, Rate =Auto, lifetime supplies, Dx: G47.33, G47.37 diclofenac sodium (VOLTAREN) 1 % topical gel Apply 2 g to affected area four times daily. APREMILAST (OTEZLA ORAL) Take 30 mg by mouth twice daily. DOCUSATE CALCIUM (STOOL SOFTENER ORAL) Take 1 tablet by mouth twice daily. oxybutynin XL (DITROPAN XL) 10 mg 24 hr tablet Take 10 mg by mouth once daily. ASCORBIC ACID (VITAMIN C ORAL) Take 1 tablet by mouth once daily. Biotin 10,000 mcg cap Take 15,000 mcg by mouth twice daily. Coenzyme Q10 200 mg cap Take 200 mg by mouth twice daily. pregabalin 150 mg capsule Take 1 capsule by mouth once daily. Dr Lance MAGNESIUM OXIDE/MAG AA CHELATE (MAGNESIUM ORAL) Take 1 tablet by mouth twice daily. LACTOBACILLUS RHAMNOSUS GG (PROBIOTIC ORAL) Take 1 capsule by mouth daily at bedtime. Cyanocobalamin (VITAMIN B-12) 1,000 mcg ORAL Lozg Take 1,000 mcg by mouth once daily. FE PS CMPLX/ASCORBIC ACID (IRON PS COMPLEX-ASCORBIC ACID ORAL) Take 1 tablet by mouth daily at bedtime. LIDOCAINE 5 % (700 MG/PATCH) ADHESIVE PATCH Apply one patch to each hip daily. Remove patch after 12 hours. as needed MULTIVITAMIN TAB daily vitamin b complex(B COMPLEX TAB) Take one(1) tablet daily. Vital signs: BP 95/63 (BP Site: Right Arm, BP Position: Sitting, BP Cuff Size: Regular Adult) Pulse 61 Resp 16 Wt 49.4 kg (109 lb) BMI 21.29 kg/m? MENTAL STATUS General appearance: normal weigh Grooming good Orientation: Ox3 Memory: Grossly intact Kinetics: normal Eye Contact: good Demeanor conversational Speech: articulat Thought Stream logical Thought Content abouthow doing. Noted that her emotions are not to much or too tobi.e Mood: we are ok Cannot laugh and cannot cry Affect: Some range. expressive Suicidal Ideation: no Homocidal Ideation: No Psychosis no Insight good Judgment good ENT : na Abdomen: Not obese Neuro: Gait and station no, Strength grossly normal in all extremities. Coordination grossly intact. No tremors noted. Sleep Disorder Dx Impression: Obstructive sleep apnea - compliant sufficient and benefitt Central Sleep apnea Psychophysiological INsomnia Other Conditioning Diagnoses: Epilepsy, Hx Gastric bypass MDD [place] Case Formulation / [place] (may include pt's hopes, fears, expectations, concerns): Present regimen is working ok Actions taken: Motivational Interviewing aspects taken Explaining out the regimen. PDMP Aspect: To schedule from 12/09 forward Review Explanation of how opiats affect breathing Explaining diff betw Bipap and ASV Plan: Continue present regimen, continue to observe Follow up on March 04. . MD Annetta Calvo LPN 12/03/2017 1:58 PM Signed please print Ambien script. thanks Annetta Holt LPN 12/03/2017 1:58 PM Signed Addended by: ANNETTA HOLT LPN on: 12/03/2017 01:58 PM Modules accepted: Orders Ofelia Car MD 12/03/2017 2:09 PM Signed Addended by: MD OFELIA CAR on: 12/03/2017 02:09 PM Modules accepted: Orders Referring Provider: OFELIA CAR [[id number]] Allergies As of Date: 12/03/2017 Noted Allergy Reaction EFFEXOR (VENLAFAXINE HCL) 01/01/2010 5 - Intolerance Comments: headaches ANTICHOLINERGICS - QUATERNARY 01/04/2003 Comments: cogentin Codiene [Other] 01/04/2003 Comments: chest pain COGENTIN (BENZTROPINE MESYLATE) 03/16/2008 Comments: Body went rigid dex rachelle [Other] 03/16/2008 Comments: Medrol dose pack: hallucinatios, diff walking KEFLEX (CEPHALEXIN) 12/18/2011 5 - Intolerance Comments: makes pt too drowsy PHENOTHIAZINES 01/04/2003 Comments: compazine-1 sided facial weakness (like stroke) ROXICET (OXYCODONE-ACETAMINOPHEN) 03/15/2010 9 - Itching Date Reviewed: 11/24/2017 Reviewed by: Amy Wright LPN - Fully Assessed Reason for Visit: Established Patient [175] Cmt: stopped trazodone and has new pain medication Reason For Visit History Recorded Primary Visit Diagnosis:Obstructive Sleep apnea - AHI 48 [G47.33] Other Visit Diagnoses:Psychophysiological insomnia [F51.04] Central sleep apnea due to medical condition [G47.37] Acquired hypothyroidism [E03.9] Recurrent major depressive disorder, in partial remission (HCC) [F33.41] History of gastric bypass [Z98.84] Nonintractable epilepsy without status epilepticus, unspecified epilepsy type (HCC) [G40.909] Order(s):CPAPMask (per patient preference) optional chin strap (if indicated), filters, tubing / heated tubing, heated humidity and lifetime supplies. Dx. JUVENAL G47.33 327.23Disp: 1 DeviceRfl: 0 [START ON 12/09/2017] Zolpidem (AMBIEN CR) 12.5 mg CR tabletTake 1 tablet by mouth at bedtime as needed for Sedation (generic acceptable) for up to 90 days.Disp: 90 tabletRfl: 0 Prescriptions as of 12/03/2017 Sig: CPAP Mask (per patient preference)* ZOLPIDEM ER 12.5 MG TABLET,EX* Take 1 tablet by mouth at bed* CHOLECALCIFEROL (VITAMIN D3) * Take 1 capsule by mouth once * LEVOTHYROXINE 50 MCG TABLET Take one tablet by mouth once* ONDANSETRON 4 MG DISINTEGRATI* Take 1 tablet by mouth every * DOCUSATE SODIUM 100 MG CAPSULE Take 100 mg by mouth twice da* LAMOTRIGINE 100 MG TABLET Take 1 tablet by mouth twice * TRAZODONE 100 MG TABLET Take 3 tablets by mouth daily* COMPOUNDED PRESCRIPTION Powerstep full length insert * Patient not taking: Reported on 10/06/2017 ARIPIPRAZOLE 5 MG TABLET Take 2 tablets by mouth once * ZOLEDRONIC ACID 5 MG/100 ML I* Inject 100 mL intravenously e* CPAP AutoSV EPAP min= 12 cmH2O, PS* DICLOFENAC 1 % TOPICAL GEL Apply 2 g to affected area fo* OTEZLA ORAL Take 30 mg by mouth twice lulu* STOOL SOFTENER ORAL Take 1 tablet by mouth twice * OXYBUTYNIN CHLORIDE ER 10 MG * Take 10 mg by mouth once vashti* VITAMIN C ORAL Take 1 tablet by mouth once d* BIOTIN 10,000 MCG CAPSULE Take 15,000 mcg by mouth twic* COENZYME Q10 200 MG CAPSULE Take 200 mg by mouth twice da* PREGABALIN 150 MG CAPSULE Take 1 capsule by mouth once * Patient taking differently: Take 150 mg by mouth twice da* MAGNESIUM ORAL Take 1 tablet by mouth twice * PROBIOTIC ORAL Take 1 capsule by mouth daily* CYANOCOBALAMIN (VIT B-12) 1,0* Take 1,000 mcg by mouth once * IRON PS COMPLEX-ASCORBIC ACID* Take 1 tablet by mouth daily * LIDOCAINE 5 % TOPICAL PATCH Apply one patch to each hip d* MULTIVITAMIN TABLET daily B COMPLEX TABLET,EXTENDED REL* Take one(1) tablet daily. More... More... Problem List As Of Date 12/03/2017 Noted Resolved Obesity, unspecified [E66.9] INVALID FOR*09/18/2012 More... More... Depressive disorder, not elsewhere classified [*INVALID FOR*10/21/2012 More... Mixed hyperlipidemia [E78.2] INVALID FOR* More... BONE AND CARTILAGE DIS NOS [M89.9, M94.9] INVALID FOR* More... Hypothyroidism [E03.9] INVALID FOR* More... Unspecified sleep apnea [G47.30] INVALID FOR*06/20/2014 More... More... Radiculopathy, lumbar region [M54.16] INVALID FOR* More... More... DISC DIS NEC/NOS-THORAC [M51.9] INVALID FOR* More... CERVICALGIA [M54.2] INVALID FOR* More... More... More... Vitamin D deficiency [E55.9] INVALID FOR* More... More... Insomnia [G47.00] 04/13/2014 Chronic insomnia [F51.04] INVALID FOR*04/13/2014 Class: Chronic More... 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 Obstructive Sleep apnea - AHI 48 [G47.33] INVALID FOR* More... Osteoporosis, unspecified [M81.0] INVALID FOR*08/09/2014 Osteoporosis [M81.0] INVALID FOR* More... Central sleep apnea in conditions classified el*INVALID FOR* DDD (degenerative disc disease), cervical [M50.*INVALID FOR* DDD (degenerative disc disease), lumbar [M51.36]INVALID FOR* Chronic pain [G89.29] INVALID FOR* Memory deficits [R41.3] INVALID FOR* Onychomycosis [B35.1] INVALID FOR* More... Psoriatic arthritis (HCC) [L40.50] INVALID FOR* Rotator cuff arthropathy, left [M12.812] INVALID FOR* Cervical radiculopathy [M54.12] INVALID FOR* Chronic bilateral low back pain with bilateral *INVALID FOR* Epigastric abdominal pain [R10.13] INVALID FOR* More... History of gastric bypass [Z98.84] INVALID FOR* More... Central sleep apnea due to medical condition [G*INVALID FOR* Prescriptions ordered this encounter Disp Refills Start End CPAP 1 De* 0 12/03/2017 Class: Print RX Sig: Mask (per patient preference) optional chin strap (if indicated), filters, tubing / heated tubing, heated humidity and lifetime supplies. Dx. JUVENAL G47.33 327.23 ZOLPIDEM ER 12.5 MG TABLET,EXTENDED * 90 t* 0 12/09/2017 12/03/2017 Class: Call Rx Route: ORAL Sig: Take 1 tablet by mouth at bedtime as needed for Sedation (generic acceptable) for up to 90 days. ZOLPIDEM ER 12.5 MG TABLET,EXTENDED * 90 t* 0 12/09/2017 03/09/2018 Class: Print RX Route: ORAL Sig: Take 1 tablet by mouth at bedtime as needed for Sedation (generic acceptable) for up to 90 days. Medications Discontinued During This Encounter CPAP 1 De* 0 09/25/2016 12/03/2017 Class: Print RX Sig: Mask (per patient preference) optional chin strap (if indicated), filters, tubing / heated tubing, heated humidity and lifetime supplies. Dx. JUVENAL G47.33 327.23 Disc: Course of therapy completed Zolpidem (AMBIEN CR) 12.5 mg CR tabl* 90 t* 0 09/10/2017 12/03/2017 Class: Print RX Route: ORAL Sig: Take 1 tablet by mouth at bedtime as needed for Sedation (generic acceptable) for up to 90 days. Disc: Reason for discontinue is not on file. Zolpidem (AMBIEN CR) 12.5 mg CR tabl* 90 t* 0 12/09/2017 12/03/2017 Class: Call Rx Route: ORAL Sig: Take 1 tablet by mouth at bedtime as needed for Sedation (generic acceptable) for up to 90 days. Disc: Reason for discontinue is not on file. Follow-up and Disposition History Recorded Encounter Status:Closed by MD OFELIA CAR on 12/03/17 PROGRESS Observed: 12/03/2017 Status: COMPLETED Source: [place] 9:10 AM [facility] [place] RE[facility] HNO ID: [id number] Author: Ofelia Car Service: (none) Author Type: Physician Type: Progress Notes Filed: 12/03/2017 1:41 PM Note Text: [facility] Follow-up/Established patient visit Reason for Visit at [place] : periodic Time Out: 1:40 Time In: 1:20 For this visit, a total lkto-gr-qbvz time with the patient comprised 20 minutes, with at least 50% of that time devoted to ieab-eb-rsso counseling and coordination of care, with especial emphasis placed on answering the patient?s and/or family?s questions in a form that they can understand and appreciate. Relevant Medications, allergies, hx Reviewed: yes Date of last visit: 09/10/17 Insurance: Medicare Home Location: [place] Psychological/Psychiatric Developments: steady Medical and Neurological Developments: New pain medicine. Had a bad headache when extended arms up. Insomnia: some later RLS: na Other: na SLEEP-WAKE SCHEDULE Bedtime: 1 AM if taking ambien. SLEEP LATENCY: right to sleep Wake after Sleep Onset willwake after 4 hoiurs, then wakes up, sometimes with mask will come off. Then the machine will come off. Then sleeps for 4 hours of broken sleep. Wake time: now is finding herself if staying in bed too long. , without an alarm. On weekends, she maintains the same sleep schedule. Sleep Quality: earlysleep is good, later sleep is broke She may fall asleep in chairs Average total sleep time (in a 24 hour period): maybe 7 hours. Obstructive Sleep Apnea Issues: Most Recent Apnea-Hypopnea Index: 48 PAP Pressure Setting(s) ASV DME Company: [facility] Mask Type: Lisha Mask Issues: Mask comes off in middle of [facility] Download Report: na Self-Reported Compliance: 4 hours standard at least Benefit: More awake. ALLERGIES Allergen Reactions - Effexor [Venlafaxin* Intolerance headaches - Anticholinergics - * cogentin - Codiene [Other] chest pain - Cogentin [Benztropi* Body went rigid - Dex Rachelle [Other] Medrol dose pack: hallucinatios, diff walking - Keflex [Cephalexin] Intolerance makes pt too drowsy - Phenothiazines compazine-1 sided facial weakness (like stroke) - Roxicet [Oxycodone-* Itching CURRENT MEDICATIONS: cholecalciferol, Vitamin D3, (VITAMIN D3) 50,000 unit cap capsule Take 1 capsule by mouth once each week. levothyroxine (SYNTHROID) 50 mcg tablet Take one tablet by mouth once daily, and 1/2 tablet on Sundays. ondansetron orally disintegrating (ZOFRAN ODT) 4 mg disintegrating tablet Take 1 tablet by mouth every 6 hours as needed for Nausea/Vomiting. docusate sodium (COLACE) 100 mg capsule Take 100 mg by mouth twice daily. lamoTRIgine (LAMICTAL) 100 mg tablet Take 1 tablet by mouth twice daily. Zolpidem (AMBIEN CR) 12.5 mg CR tablet Take 1 tablet by mouth at bedtime as needed for Sedation (generic acceptable) for up to 90 days. traZODone (DESYREL) 100 mg tablet Take 3 tablets by mouth daily at bedtime. COMPOUNDED PRESCRIPTION Powerstep full length insert(M72.2) Plantar fasciitis of right foot (primary encounter diagnosis) ARIPiprazole (ABILIFY) 5 mg tablet Take 2 tablets by mouth once daily. zoledronic acid (RECLAST) 5 mg/100 mL pgbk PREMIX piggyback Inject 100 mL intravenously every year. CPAP Mask (per patient preference) optional chin strap (if indicated), filters, tubing / heated tubing, heated humidity and lifetime supplies. Dx. JUVENAL G47.33 327.23 CPAP AutoSV EPAP min= 12 cmH2O, PS min-max = [id number], Max pressure = 25 cmH2O, Rate =Auto, lifetime supplies, Dx: G47.33, G47.37 diclofenac sodium (VOLTAREN) 1 % topical gel Apply 2 g to affected area four times daily. APREMILAST (OTEZLA ORAL) Take 30 mg by mouth twice daily. DOCUSATE CALCIUM (STOOL SOFTENER ORAL) Take 1 tablet by mouth twice daily. oxybutynin XL (DITROPAN XL) 10 mg 24 hr tablet Take 10 mg by mouth once daily. ASCORBIC ACID (VITAMIN C ORAL) Take 1 tablet by mouth once daily. Biotin 10,000 mcg cap Take 15,000 mcg by mouth twice daily. Coenzyme Q10 200 mg cap Take 200 mg by mouth twice daily. pregabalin 150 mg capsule Take 1 capsule by mouth once daily. Dr Lance MAGNESIUM OXIDE/MAG AA CHELATE (MAGNESIUM ORAL) Take 1 tablet by mouth twice daily. LACTOBACILLUS RHAMNOSUS GG (PROBIOTIC ORAL) Take 1 capsule by mouth daily at bedtime. Cyanocobalamin (VITAMIN B-12) 1,000 mcg ORAL Lozg Take 1,000 mcg by mouth once daily. FE PS CMPLX/ASCORBIC ACID (IRON PS COMPLEX-ASCORBIC ACID ORAL) Take 1 tablet by mouth daily at bedtime. LIDOCAINE 5 % (700 MG/PATCH) ADHESIVE PATCH Apply one patch to each hip daily. Remove patch after 12 hours. as needed MULTIVITAMIN TAB daily vitamin b complex(B COMPLEX TAB) Take one(1) tablet daily. Vital signs: BP 95/63 (BP Site: Right Arm, BP Position: Sitting, BP Cuff Size: Regular Adult) Pulse 61 Resp 16 Wt 49.4 kg (109 lb) BMI 21.29 kg/m? MENTAL STATUS General appearance: normal weigh Grooming good Orientation: Ox3 Memory: Grossly intact Kinetics: normal Eye Contact: good Demeanor conversational Speech: articulat Thought Stream logical Thought Content abouthow doing. Noted that her emotions are not to much or too tobi.e Mood: we are ok Cannot laugh and cannot cry Affect: Some range. expressive Suicidal Ideation: no Homocidal Ideation: No Psychosis no Insight good Judgment good ENT : na Abdomen: Not obese Neuro: Gait and station no, Strength grossly normal in all extremities. Coordination grossly intact. No tremors noted. Sleep Disorder Dx Impression: Obstructive sleep apnea - compliant sufficient and benefitt Central Sleep apnea Psychophysiological INsomnia Other Conditioning Diagnoses: Epilepsy, Hx Gastric bypass MDD [place] Case Formulation / [place] (may include pt's hopes, fears, expectations, concerns): Present regimen is working ok Actions taken: Motivational Interviewing aspects taken Explaining out the regimen. PDMP Aspect: To schedule from 12/09 forward Review Explanation of how opiats affect breathing Explaining diff betw Bipap and ASV Plan: Continue present regimen, continue to observe Follow up on March 04. . Ofelia Car MD URINE DRUG SCREEN Collected: 12/02/2017 Status: F Source: RANDI (VISTA) 12:25 PM [facility] [facility] Order Comment: Comments: [id number] urine run lowest test List of Drugs Taken or Suspected? UNK TYPE CODE TESTS RESULT OUT OF RANGE REFERENCE UNITS LAB L505.0075 TO BE Normal CONFIRMED Result Comment: CONFIRMATORY TESTING FOR ALL POSITIVE URINE DRUG SCREEN RESULTS WILL ONLY BE SENT OUT UPON PHYSICIAN ORDER. VISTA Urine Drug Screen methods provide only preliminary analytical test results. A more specific alternate chemical method must be used in order to obtain a confirmed analytical result. Gas chromatography/mass spectrometery (GC/MS) is the preferred confirmatory method. Clinical consideration and professional judgement should be applied to any drug of abuse test result, particularly when preliminary positive results are used. URINE TCA TESTING MUST BE ORDERED SEPARATELY. USE TEST MNEMONIC: [facility] LAB L505.5005 VISTA UDS PH 5 Normal LAB L505.5015 <1000 ng/mL AMPHETAMINES Normal NEGATIVE LAB L505.5025 < 200 ng/mL BARBITIURATES Normal NEGATIVE LAB L505.5035 < 200 ng/mL BENZODIAZIPINE Normal NEGATIVE LAB L505.5045 < 300 ng/mL COCAINE Normal NEGATIVE LAB L505.5055 < 500 ng/mL ECSTACY Normal NEGATIVE LAB L505.5065 < 300 ng/mL METHADONE Normal NEGATIVE LAB L505.5075 < 300 High ng/mL OPIATES POSITIVE LAB L505.5085 < 25 ng/mL PCP Normal NEGATIVE LAB L505.5095 < 50 ng/mL THC Normal NEGATIVE Performed By: #### L505.5000 #### [facility] [address] [place], [place], [address] MISCELLANEOUS LAB Collected: 12/02/2017 Status: F Source: [facility]I PROCEDURE 12:25 PM [facility] Order Comment: Comments: [id number] urine run lowest test Test(s) Ordered: [id number] urine run lowest test TYPE CODE TESTS RESULT OUT OF RANGE REFERENCE UNITS LAB L801.1541 Normal [facility] [place] LAB TEST Result Comment: TEST RESULT UNITS REF INTERVAL [id number] 6+Oxycodone-Bund Amphetamines, Urine Negative ng/mL Flxpft=0703 Amphetamine test includes Amphetamine and Methamphetamine. Barbiturate Negative ng/mL Jlqrol=337 Benzodiazepines Negative ng/mL Jkhbnz=439 Cannabinoids Negative ng/mL Cutoff=20 Cocaine (Metabolite) Negative ng/mL Foejos=026 Opiates Negative ng/mL Txknxt=063 Opiate test includes Codeine, Morphine, Hydromorphone, Hydrocodone. Please Note: Confirmation performed by Mass Spectrometry Oxycodone/Oxymorph Positive Qbrseo=411 Test includes Oxycodone and Oxymorphone Oxycodone Positive Oxycodone (GC/MS) >3000 ng/mL Cnvshk=046 Oxymorphone Positive Oxymorphone (GC/MS) >3000 ng/mL Zevqsp=394 TESTING PERFORMED AT [facility]. ORIGINAL REPORT ON FILE IN LAB CONTAINS ADDITIONAL TEST SITE INFORMATION. Performed By: #### L801.1541 #### [facility] [address] [place], [address] PROGRESS Observed: 11/24/2017 Status: COMPLETED Source: [place] 4:07 PM [facility] REPOSITORY O ID: [id number] Author: Niesha (Human Resources Manager) Miguel Service: (none) Author Type: Nurse Specialist Type: Progress Notes Filed: 11/24/2017 4:22 PM Note Text: OUTPATIENT VISIT DATE November 24, 2017 OUTPATIENT VISIT TYPE ESTABLISHED PRIMARY CARE PHYSICIAN: Sun Bennett MD CHIEF COMPLAINT: Patient presents with: F/U 6 Month History of Present Illness: Frannie Romo is a 67 year old female who was last seen 07/2017 in . 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 Since the last visit, she states that she has had worsening of neck pain recently. She is seeing Dr. Lance later today. She has been working to determine cause of dysphagia with Dr. Contreras. Hypothyroidism. She is doing well on her current dose of Synthroid. Without report of Denies fatigue, cold intolerance, constipation, swelling in feet, weight gain, hair loss, dry skin. She has followed with Dr. Allred, last seen 09/2017. TSH (uU/mL) Date Value 09/30/2017 1.390 04/30/2017 0.641 ) No recent hospital or ED visits. No new medical problems or medications. Able to obtain medications. No problems with taking medications or note side effects. PAST MEDICAL HISTORY Diagnosis Date - Abdominal pain, unspecified site 02/28/2008 Reportedly had sigmoid resetion for adhesions about age 37: mutiple surgeries for adhesions, endometriosis, etc Camelia, LUIS (no comment on ovaries), cliff in sigmoid area by CT in 04-06 [facility] (Colorectal surgery) 12-05: prob small midline, incis hernia, did not rec repeat EGD/Colon/Surg-more adhesions WBC 5.8 K, HCT 43% in 01-04 Int hems ligated in 01-04 per [facility] - Abnormal glucose tolerance test 01/16/2012 - Abnormality of gait 05/01/2011 - Acute gastritis without mention of hemorrhage 11/21/2009 - Benign paroxysmal positional vertigo 06/10/2011 - Calculus of kidney - Cancer ([facility]) - Cervicalgia - Colon polyp, hyperplastic May 2006 - Depression - Depressive disorder, not elsewhere classified - Disorder of bone and cartilage, unspecified - Disorders of bursae and tendons in shoulder region, unspecified 02/28/2008 Arthroscopic R rotator cuff and biceps tendon repair 05-08-[address] Karthik Bella at [facility] - Dysphagia prior esophageal dilations twice - Dysphagia - Dysphagia, unspecified(787.20) - Epilepsy ([facility]) 02/12/2012 - Esophageal reflux - Esophagitis, unspecified - Examination of participant in clinical trial 03/01/2010 IRB: 06-184 Study Title: Pelvic floor Disorders in Bariatric Surgery Patients Visit: Baseline PI: Patricia Patel MD Supervisor Finishing Room/Pager:Mayra Mar RN # [phone] Patient seen for PFD research study (IRB 06-184). Patient agreed to participate in the QOL survey portion of the trial. Patient completed baseline survey. SIG:Mayra Mar RN - Grief 11/20/2011 - Gum symptoms - History of bladder cancer - Insomnia - Malignant neoplasm of bladder, part unspecified 02/15/2008 Biopsy 11-04: non-invasive, low grade papillary carcinoma Cystosocpy 11-[address] David López in [place]: no tumors, stones or foreign bodies Urology rec Cystoscopy in 03-07 and then q 6 mo for 3 years then yearly Urology rec antibiotics in 08-06 for chronic cystitis after voided urine for cytology: may treat for 3-6 months - Microscopic hematuria 02/21/2010 - Nasal congestion 08/18/2013 - Nasal obstruction 08/31/2014 - Obesity, unspecified 11-07-09 stated BMI 38 ht: 61 wt: 201 lbs - Obstructive sleep apnea [facility] - Other and unspecified disc disorder of thoracic region - Other and unspecified hyperlipidemia - Other pain disorders related to psychological factors 05/15/2011 - Pain in limb 06/09/2008 Pain reportedly started after a fall in the shower in 2007 [facility] 05-09: rec Neurontin [place]er 06-06: pain in distribution of deep peroneal nerve, change to Lyrica and sponge MLA with met and RLD Referred to [facility] in 07-07 Basali to manage pain meds as of 11-06 - Persistent disorder of initiating or maintaining sleep - Personal history of malignant neoplasm of bladder 08/29/2009 - 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 - EGD W/O BRSH SPECIMEN W/BX 03/08/08 - EGD W/O OR W/BRUSH/WASH 11/21/2009 EGD - EGD W/O OR W/BRUSH/WASH 12/01/2013 EGD - EGD W/O OR W/BRUSH/WASH 03/28/15 EGD out pt [facility] - EGD W/O OR W/BRUSH/WASH 08/19/2017 EGD - KNEE SCOPE,DIAGNOSTIC Arthroscopy, knee right - PAST SURGICAL HISTORY OF adhesions, partial sigmoid resection, bladder lift - PAST SURGICAL HISTORY OF 2005 left Hammertoe correction right 2nd and 3rd toes - PAST SURGICAL HISTORY OF 1992 Left shoulder surgery - PAST SURGICAL HISTORY OF 09/07 left shoulder - PAST SURGICAL HISTORY OF 03-09-10 Bariatric, with hernia repair. - PAST SURGICAL HISTORY OF 1983 oophrectomy - RECONSTRUCT PROX HUMERAL IMPLANT 2006 Arthroplasty, shoulder right - REMOVAL GALLBLADDER 1980 Cholecystectomy - TOTAL ABDOM HYSTERECTOMY 1982 Hysterectomy, LUIS FAMILY HISTORY Problem Relation Age of Onset - Stroke Mother - Heart Mother - Hypertension Mother - Diabetes Mother - GI Mother colitis - Alzheimer's Disease Father - Heart Father Bypass - Breast Cancer Paternal Aunt - Breast Cancer Paternal Grandmother - GI Sister colitis Social History Substance Use Topics - Smoking status: Never Smoker - Smokeless tobacco: Never Used - Alcohol use No ALLERGIES: ALLERGIES Allergen Reactions - Effexor [Venlafaxin* Intolerance headaches - Anticholinergics - * cogentin - Codiene [Other] chest pain - Cogentin [Benztropi* Body went rigid - Dex Rachelle [Other] Medrol dose pack: hallucinatios, diff walking - Keflex [Cephalexin] Intolerance makes pt too drowsy - Phenothiazines compazine-1 sided facial weakness (like stroke) - Roxicet [Oxycodone-* Itching MEDICATIONS cholecalciferol, Vitamin D3, (VITAMIN D3) 50,000 unit cap capsule Take 1 capsule by mouth once each week. levothyroxine (SYNTHROID) 50 mcg tablet Take one tablet by mouth once daily, and 1/2 tablet on Sundays. docusate sodium (COLACE) 100 mg capsule Take 100 mg by mouth twice daily. lamoTRIgine (LAMICTAL) 100 mg tablet Take 1 tablet by mouth twice daily. Zolpidem (AMBIEN CR) 12.5 mg CR tablet Take 1 tablet by mouth at bedtime as needed for Sedation (generic acceptable) for up to 90 days. traZODone (DESYREL) 100 mg tablet Take 3 tablets by mouth daily at bedtime. ARIPiprazole (ABILIFY) 5 mg tablet Take 2 tablets by mouth once daily. zoledronic acid (RECLAST) 5 mg/100 mL pgbk PREMIX piggyback Inject 100 mL intravenously every year. CPAP Mask (per patient preference) optional chin strap (if indicated), filters, tubing / heated tubing, heated humidity and lifetime supplies. Dx. JUVENAL G47.33 327.23 CPAP AutoSV EPAP min= 12 cmH2O, PS min-max = [id number], Max pressure = 25 cmH2O, Rate =Auto, lifetime supplies, Dx: G47.33, G47.37 diclofenac sodium (VOLTAREN) 1 % topical gel Apply 2 g to affected area four times daily. APREMILAST (OTEZLA ORAL) Take 30 mg by mouth twice daily. DOCUSATE CALCIUM (STOOL SOFTENER ORAL) Take 1 tablet by mouth twice daily. oxybutynin XL (DITROPAN XL) 10 mg 24 hr tablet Take 10 mg by mouth once daily. Biotin 10,000 mcg cap Take 15,000 mcg by mouth twice daily. Coenzyme Q10 200 mg cap Take 200 mg by mouth twice daily. pregabalin 150 mg capsule Take 1 capsule by mouth once daily. Dr Lance MAGNESIUM OXIDE/MAG AA CHELATE (MAGNESIUM ORAL) Take 1 tablet by mouth twice daily. LACTOBACILLUS RHAMNOSUS GG (PROBIOTIC ORAL) Take 1 capsule by mouth daily at bedtime. FE PS CMPLX/ASCORBIC ACID (IRON PS COMPLEX-ASCORBIC ACID ORAL) Take 1 tablet by mouth daily at bedtime. LIDOCAINE 5 % (700 MG/PATCH) ADHESIVE PATCH Apply one patch to each hip daily. Remove patch after 12 hours. as needed MULTIVITAMIN TAB daily ondansetron orally disintegrating (ZOFRAN ODT) 4 mg disintegrating tablet Take 1 tablet by mouth every 6 hours as needed for Nausea/Vomiting. COMPOUNDED PRESCRIPTION Powerstep full length insert(M72.2) Plantar fasciitis of right foot (primary encounter diagnosis) ASCORBIC ACID (VITAMIN C ORAL) Take 1 tablet by mouth once daily. Cyanocobalamin (VITAMIN B-12) 1,000 mcg ORAL Lozg Take 1,000 mcg by mouth once daily. vitamin b complex(B COMPLEX TAB) Take one(1) tablet daily. REVIEW OF SYSTEMS: GENERAL: Negative for: Weight loss or gain, Fever or Chills, Weakness and Sleep difficulties. Physical Examination: BP 128/82 Pulse 68 Resp 16 Wt 110 lb (49.9kg) BP w/Orthostatic Vitals Date and Time Orthostatic BP Orthostatic Pulse BP Pulse BP Position BP Site BP Cuff Size 11/24/17952 -- -- 128/82 68 Sitting Left Arm Regular Adult Peak Flow Date and Time PF Resp 11/24/17952 -- 16 General appearance: Well appearing, alert, in no acute distress, well-hydrated, well nourished. Skin: Skin color, texture, turgor normal, no suspicious rashes or lesions Neck: Supple, no adenopathy; thyroid symmetric, normal size, no bruits Back: Normal exam Lungs: Lungs clear to auscultation. No wheezing, rhonchi, rales Heart: RRR without murmur, gallop, or rubs. Abdomen: Abdomen soft, non-tender. Bowel sounds normal. No masses, organomegaly Extremities: No edema, skin discoloration, clubbing or cyanosis. Good capillary refill. Peripheral pulses: Normal Neuro: Gait normal. Sensation grossly intact. Reviewed chart, outside records, tests I personally interviewed, confirmed and edited the above information if obtained by others. TESTING: Glucose (mg/dL) Date Value 09/30/2017 79 Potassium (mmol/L) Date Value 09/30/2017 4.3 Sodium (mmol/L) Date Value 09/30/2017 144 Chloride (mmol/L) Date Value 09/30/2017 103 CO2 (mmol/L) Date Value 09/30/2017 31 Creatinine (mg/dL) Date Value 09/30/2017 0.70 BUN (mg/dL) Date Value 09/30/2017 9 Anion Gap (mmol/L) Date Value 09/30/2017 10 Calcium (mg/dL) Date Value 09/30/2017 8.8 Glucose (mg/dL) Date Value 09/30/2017 79 Potassium (mmol/L) Date Value 09/30/2017 4.3 Sodium (mmol/L) Date Value 09/30/2017 144 Chloride (mmol/L) Date Value 09/30/2017 103 CO2 (mmol/L) Date Value 09/30/2017 31 Creatinine (mg/dL) Date Value 09/30/2017 0.70 BUN (mg/dL) Date Value 09/30/2017 9 Anion Gap (mmol/L) Date Value 09/30/2017 10 Calcium (mg/dL) Date Value 09/30/2017 8.8 Protein, Total (g/dL) Date Value 09/30/2017 6.2 Albumin (g/dL) Date Value 09/30/2017 4.2 Bilirubin, Total (mg/dL) Date Value 09/30/2017 0.6 Alkaline Phosphatase (U/L) Date Value 09/30/2017 108 AST (U/L) Date Value 09/30/2017 31 ALT (U/L) Date Value 09/30/2017 38 Hemoglobin (g/dL) Date Value 09/30/2017 14.3 Hematocrit (%) Date Value 09/30/2017 44.3 WBC (k/uL) Date Value 09/30/2017 6.49 Cholesterol, Total (mg/dL) Date Value 04/16/2016 171 Total Cholesterol, Nonfasting (mg/dL) Date Value 04/30/2017 186 HDL Cholesterol (mg/dL) Date Value 04/16/2016 83 HDL Cholesterol, Nonfasting (mg/dL) Date Value 04/30/2017 90 LDL Cholesterol (mg/dL) Date Value 04/16/2016 70 LDL Cholesterol, Nonfasting (mg/dL) Date Value 04/30/2017 78 Triglyceride (mg/dL) Date Value 04/16/2016 89 Triglycerides, Nonfasting (mg/dL) Date Value 04/30/2017 90 Hemoglobin A1C Date Value Ref Range Status 09/30/2017 5.2 4.3 - 5.6 % Final 10/25/2015 5.3 4.3 - 5.6 % Final 05/18/2015 5.2 4.3 - 5.6 % Final 12/13/2013 5.3 4.0 - 6.0 % Final Comment: [place] [employer] guidelines indicate that patients with HgbA1c in the range 5.7-6.4% are at increased risk for development of diabetes, and intervention by lifestyle modification may be beneficial. HgbA1c greater or equal to 6.5% is considered diagnostic of diabetes. HBA1C, [place] Date Value Ref Range Status 07/06/2008 6.2 (H) 4.2 - 5.8 % Final Comment: Test performed by: [facility], [address] [place] [address]. Ejection Fraction: No results found IMPRESSION: Ms. Romo is a 67 year old woman presents for routine follow up. After my examination and review of data, I make the following recommendations. PLAN AND RECOMMENDATIONS: 1. Vitamin D deficiency - ICD9: 268.9, ICD10: E55.9 (primary diagnosis) Resume vitamin D 2. Acquired hypothyroidism - ICD9: 244.9, ICD10: E03.9 - Instructed patient on importance of taking on an empty stomach either first thing in the morning or at bedtime. - continue current dose of Synthroid - LEVOTHYROXINE 50 MCG TABLET 3. Cervicalgia - ICD9: 723.1, ICD10: M54.[address] Lance later today for neck pain. 1. Vitamin D deficiency - ICD9: 268.9, ICD10: E55.9 (primary diagnosis) Resume vitamin D supplementation - CHOLECALCIFEROL (VITAMIN D3) 50,000 UNIT CAPSULE 2. Acquired hypothyroidism - ICD9: 244.9, ICD10: E03.9 - Instructed patient on importance of taking on an empty stomach either first thing in the morning or at bedtime. - continue current dose of Synthroid - LEVOTHYROXINE 50 MCG TABLET 3. Cervicalgia - ICD9: 723.1, ICD10: M54.[address] Lance later today. 4. Hypoalbuminemia - ICD9: 273.8, ICD10: E88.09 Increase protein intake through vegetable based protein powder or any preferred means, try to have some protein with each meal 5. Nausea - ICD9: 787.02, ICD10: R11.0 - ONDANSETRON 4 MG DISINTEGRATING TABLET follow up 6 months with Sun Bennett MD. Advised to go to ER if develops chest pain, shortness of breath, or severe worsening of symptoms. Discussed risks, benefits, alternatives, and potential side effects of medications. Ms. Romo expressed understanding and agreed with the plan. Niesha Rivera APRN.[facility] CNOV Observed: 11/24/2017 Status: COMPLETED Source: [place] 10:00 AM [facility] [place] REPOSITORY Office Visit (INTMWS) FRANNIE ROMO ([id number]) 1950 F [place] Date Time Provider Department 11/24/17 10:00 AM NIESHA RIVERA ([facility]) INTMWS During your visit today, we recorded the following information about you: Pulse Respiration Blood pressure Weight 68/minute 16/minute 128/82 49.9 kg Niesha Rivera APRN.HOTEL VALET ATTENDANT 11/24/2017 4:22 PM Signed OUTPATIENT VISIT DATE November 24, 2017 OUTPATIENT VISIT TYPE ESTABLISHED PRIMARY CARE PHYSICIAN: Sun Bennett MD CHIEF COMPLAINT: Patient presents with: F/U 6 Month History of Present Illness: Frannie Romo is a 67 year old female who was last seen 07/2017 in . 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 Since the last visit, she states that she has had worsening of neck pain recently. She is seeing Dr. Lance later today. She has been working to determine cause of dysphagia with Dr. Contreras. Hypothyroidism. She is doing well on her current dose of Synthroid. Without report of Denies fatigue, cold intolerance, constipation, swelling in feet, weight gain, hair loss, dry skin. She has followed with Dr. Allred, last seen 09/2017. TSH (uU/mL) Date Value 09/30/2017 1.390 04/30/2017 0.641 ) No recent hospital or ED visits. No new medical problems or medications. Able to obtain medications. No problems with taking medications or note side effects. PAST MEDICAL HISTORY Diagnosis Date - Abdominal pain, unspecified site 02/28/2008 Reportedly had sigmoid resetion for adhesions about age 37: mutiple surgeries for adhesions, endometriosis, etc Camelia, LUIS (no comment on ovaries), cliff in sigmoid area by CT in 04-06 [facility] (Colorectal surgery) 12-05: prob small midline, incis hernia, did not rec repeat EGD/Colon/Surg-more adhesions WBC 5.8 K, HCT 43% in 01-04 Int hems ligated in 01-04 per [facility] - Abnormal glucose tolerance test 01/16/2012 - Abnormality of gait 05/01/2011 - Acute gastritis without mention of hemorrhage 11/21/2009 - Benign paroxysmal positional vertigo 06/10/2011 - Calculus of kidney - Cancer (HCC) - Cervicalgia - Colon polyp, hyperplastic May 2006 - Depression - Depressive disorder, not elsewhere classified - Disorder of bone and cartilage, unspecified - Disorders of bursae and tendons in shoulder region, unspecified 02/28/2008 Arthroscopic R rotator cuff and biceps tendon repair 05-08-[address] Karthik Bella at [facility] - Dysphagia prior esophageal dilations twice - Dysphagia - Dysphagia, unspecified(787.20) - Epilepsy ([facility]) 02/12/2012 - Esophageal reflux - Esophagitis, unspecified - Examination of participant in clinical trial 03/01/2010 IRB: 06-184 Study Title: Pelvic floor Disorders in Bariatric Surgery Patients Visit: Baseline PI: Patricia Patel MD Supervisor Finishing Room/Pager:Mayra Mar RN # [phone] Patient seen for PFD research study (IRB 06- 673). Patient agreed to participate in the QOL survey portion of the trial. Patient completed baseline survey. SIG:Mayra Mar RN - Grief 11/20/2011 - Gum symptoms - History of bladder cancer - Insomnia - Malignant neoplasm of bladder, part unspecified 02/15/2008 Biopsy 11-04: non-invasive, low grade papillary carcinoma Cystosocpy 11-[address] David López in [place]: no tumors, stones or foreign bodies Urology rec Cystoscopy in 03-07 and then q 6 mo for 3 years then yearly Urology rec antibiotics in 08-06 for chronic cystitis after voided urine for cytology: may treat for 3-6 months - Microscopic hematuria 02/21/2010 - Nasal congestion 08/18/2013 - Nasal obstruction 08/31/2014 - Obesity, unspecified 11-07-09 stated BMI 38 ht: 61 wt: 201 lbs - Obstructive sleep apnea [facility] - Other and unspecified disc disorder of thoracic region - Other and unspecified hyperlipidemia - Other pain disorders related to psychological factors 05/15/2011 - Pain in limb 06/09/2008 Pain reportedly started after a fall in the shower in 2007 [facility] 05-09: rec Neurontin [place] 06-06: pain in distribution of deep peroneal nerve, change to Lyrica and sponge MLA with met and RLD Referred to [facility] in 07-07 [facility]ali to manage pain meds as of 11-06 - Persistent disorder of initiating or maintaining sleep - Personal history of malignant neoplasm of bladder 08/29/2009 - 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 - Rotator cuff (capsule) sprain 11/20/2010 - Shoulder pain 05/09/2009 - Status post bariatric surgery - Thoracic or lumbosacral neuritis or radiculitis, unspecified - Unspecified hypothyroidism - Unspecified sleep apnea PAST SURGICAL HISTORY Procedure Laterality Date - APPENDECTOMY 1983 - COLONOSCOP W/ [facility] W[facility] [facility] [place] 2006 Colonoscopy - COLONOSCOP W/ OR W/O [facility] SPEC 04/10/06 Colonoscopy/ [place] - COLONOSCOP W/ OR W/O [facility] SPEC 12/01/2013 Colonoscopy - CYSTOSCOPY 2010 left stent placement - CYSTOSCOPY removal of bladder lesion- malignant. - EGD W/O [facility] SPECIMEN W/BX 03/08/08 - EGD W/O OR W/BRUSH/WASH 11/21/2009 EGD - EGD W/O OR W/BRUSH/WASH 12/01/2013 EGD - EGD W/O OR W/BRUSH/WASH 03/28/15 EGD out pt [facility] - EGD W/O OR W/BRUSH/WASH 08/19/2017 EGD - KNEE SCOPE,DIAGNOSTIC Arthroscopy, knee right - PAST SURGICAL HISTORY OF adhesions, partial sigmoid resection, bladder lift - PAST SURGICAL HISTORY OF 2005 left Hammertoe correction right 2nd and 3rd toes - PAST SURGICAL HISTORY OF 1992 Left shoulder surgery - PAST SURGICAL HISTORY OF 09/07 left shoulder - PAST SURGICAL HISTORY OF 03-09-10 Bariatric, with hernia repair. - PAST SURGICAL HISTORY OF 1983 oophrectomy - RECONSTRUCT PROX HUMERAL IMPLANT 2006 Arthroplasty, shoulder right - REMOVAL GALLBLADDER 1980 Cholecystectomy - TOTAL ABDOM HYSTERECTOMY 1982 Hysterectomy, LUIS FAMILY HISTORY Problem Relation Age of Onset - Stroke Mother - Heart Mother - Hypertension Mother - Diabetes Mother - GI Mother colitis - Alzheimer's Disease Father - Heart Father Bypass - Breast Cancer Paternal Aunt - Breast Cancer Paternal Grandmother - GI Sister colitis Social History Substance Use Topics - Smoking status: Never Smoker - Smokeless tobacco: Never Used - Alcohol use No ALLERGIES: ALLERGIES Allergen Reactions - Effexor [Venlafaxin* Intolerance headaches - Anticholinergics - * cogentin - Codiene [Other] chest pain - Cogentin [Benztropi* Body went rigid - Dex Rachelle [Other] Medrol dose pack: hallucinatios, diff walking - Keflex [Cephalexin] Intolerance makes pt too drowsy - Phenothiazines compazine-1 sided facial weakness (like stroke) - Roxicet [Oxycodone-* Itching MEDICATIONS cholecalciferol, Vitamin D3, (VITAMIN D3) 50,000 unit cap capsule Take 1 capsule by mouth once each week. levothyroxine (SYNTHROID) 50 mcg tablet Take one tablet by mouth once daily, and 1/2 tablet on Sundays. docusate sodium (COLACE) 100 mg capsule Take 100 mg by mouth twice daily. lamoTRIgine (LAMICTAL) 100 mg tablet Take 1 tablet by mouth twice daily. Zolpidem (AMBIEN CR) 12.5 mg CR tablet Take 1 tablet by mouth at bedtime as needed for Sedation (generic acceptable) for up to 90 days. traZODone (DESYREL) 100 mg tablet Take 3 tablets by mouth daily at bedtime. ARIPiprazole (ABILIFY) 5 mg tablet Take 2 tablets by mouth once daily. zoledronic acid (RECLAST) 5 mg/100 mL pgbk PREMIX piggyback Inject 100 mL intravenously every year. CPAP Mask (per patient preference) optional chin strap (if indicated), filters, tubing / heated tubing, heated humidity and lifetime supplies. Dx. JUVENAL G47.33 327.23 CPAP AutoSV EPAP min= 12 cmH2O, PS min-max = [id number], Max pressure = 25 cmH2O, Rate =Auto, lifetime supplies, Dx: G47.33, G47.37 diclofenac sodium (VOLTAREN) 1 % topical gel Apply 2 g to affected area four times daily. APREMILAST (OTEZLA ORAL) Take 30 mg by mouth twice daily. DOCUSATE CALCIUM (STOOL SOFTENER ORAL) Take 1 tablet by mouth twice daily. oxybutynin XL (DITROPAN XL) 10 mg 24 hr tablet Take 10 mg by mouth once daily. Biotin 10,000 mcg cap Take 15,000 mcg by mouth twice daily. Coenzyme Q10 200 mg cap Take 200 mg by mouth twice daily. pregabalin 150 mg capsule Take 1 capsule by mouth once daily. Dr Lance MAGNESIUM OXIDE/MAG AA CHELATE (MAGNESIUM ORAL) Take 1 tablet by mouth twice daily. LACTOBACILLUS RHAMNOSUS GG (PROBIOTIC ORAL) Take 1 capsule by mouth daily at bedtime. FE PS CMPLX/ASCORBIC ACID (IRON PS COMPLEX-ASCORBIC ACID ORAL) Take 1 tablet by mouth daily at bedtime. LIDOCAINE 5 % (700 MG/PATCH) ADHESIVE PATCH Apply one patch to each hip daily. Remove patch after 12 hours. as needed MULTIVITAMIN TAB daily ondansetron orally disintegrating (ZOFRAN ODT) 4 mg disintegrating tablet Take 1 tablet by mouth every 6 hours as needed for Nausea/Vomiting. COMPOUNDED PRESCRIPTION Powerstep full length insert(M72.2) Plantar fasciitis of right foot (primary encounter diagnosis) ASCORBIC ACID (VITAMIN C ORAL) Take 1 tablet by mouth once daily. Cyanocobalamin (VITAMIN B-12) 1,000 mcg ORAL Lozg Take 1,000 mcg by mouth once daily. vitamin b complex(B COMPLEX TAB) Take one(1) tablet daily. REVIEW OF SYSTEMS: GENERAL: Negative for: Weight loss or gain, Fever or Chills, Weakness and Sleep difficulties. Physical Examination: BP 128/82 Pulse 68 Resp 16 Wt 110 lb (49.9kg) BP w/Orthostatic Vitals Date and Time Orthostatic BP Orthostatic Pulse BP Pulse BP Position BP Site BP Cuff Size 11/24/17952 -- -- 128/82 68 Sitting Left Arm Regular Adult Peak Flow Date and Time PF Resp 11/24/17952 -- 16 General appearance: Well appearing, alert, in no acute distress, well-hydrated, well nourished. Skin: Skin color, texture, turgor normal, no suspicious rashes or lesions Neck: Supple, no adenopathy; thyroid symmetric, normal size, no bruits Back: Normal exam Lungs: Lungs clear to auscultation. No wheezing, rhonchi, rales Heart: RRR without murmur, gallop, or rubs. Abdomen: Abdomen soft, non-tender. Bowel sounds normal. No masses, organomegaly Extremities: No edema, skin discoloration, clubbing or cyanosis. Good capillary refill. Peripheral pulses: Normal Neuro: Gait normal. Sensation grossly intact. Reviewed chart, outside records, tests I personally interviewed, confirmed and edited the above information if obtained by others. TESTING: Glucose (mg/dL) Date Value 09/30/2017 79 Potassium (mmol/L) Date Value 09/30/2017 4.3 Sodium (mmol/L) Date Value 09/30/2017 144 Chloride (mmol/L) Date Value 09/30/2017 103 CO2 (mmol/L) Date Value 09/30/2017 31 Creatinine (mg/dL) Date Value 09/30/2017 0.70 BUN (mg/dL) Date Value 09/30/2017 9 Anion Gap (mmol/L) Date Value 09/30/2017 10 Calcium (mg/dL) Date Value 09/30/2017 8.8 Glucose (mg/dL) Date Value 09/30/2017 79 Potassium (mmol/L) Date Value 09/30/2017 4.3 Sodium (mmol/L) Date Value 09/30/2017 144 Chloride (mmol/L) Date Value 09/30/2017 103 CO2 (mmol/L) Date Value 09/30/2017 31 Creatinine (mg/dL) Date Value 09/30/2017 0.70 BUN (mg/dL) Date Value 09/30/2017 9 Anion Gap (mmol/L) Date Value 09/30/2017 10 Calcium (mg/dL) Date Value 09/30/2017 8.8 Protein, Total (g/dL) Date Value 09/30/2017 6.2 Albumin (g/dL) Date Value 09/30/2017 4.2 Bilirubin, Total (mg/dL) Date Value 09/30/2017 0.6 Alkaline Phosphatase (U/L) Date Value 09/30/2017 108 AST (U/L) Date Value 09/30/2017 31 ALT (U/L) Date Value 09/30/2017 38 Hemoglobin (g/dL) Date Value 09/30/2017 14.3 Hematocrit (%) Date Value 09/30/2017 44.3 WBC (k/uL) Date Value 09/30/2017 6.49 Cholesterol, Total (mg/dL) Date Value 04/16/2016 171 Total Cholesterol, Nonfasting (mg/dL) Date Value 04/30/2017 186 HDL Cholesterol (mg/dL) Date Value 04/16/2016 83 HDL Cholesterol, Nonfasting (mg/dL) Date Value 04/30/2017 90 LDL Cholesterol (mg/dL) Date Value 04/16/2016 70 LDL Cholesterol, Nonfasting (mg/dL) Date Value 04/30/2017 78 Triglyceride (mg/dL) Date Value 04/16/2016 89 Triglycerides, Nonfasting (mg/dL) Date Value 04/30/2017 90 Hemoglobin A1C Date Value Ref Range Status 09/30/2017 5.2 4.3 - 5.6 % Final 10/25/2015 5.3 4.3 - 5.6 % Final 05/18/2015 5.2 4.3 - 5.6 % Final 12/13/2013 5.3 4.0 - 6.0 % Final Comment: [place] [employer] guidelines indicate that patients with HgbA1c in the range 5.7-6.4% are at increased risk for development of diabetes, and intervention by lifestyle modification may be beneficial. HgbA1c greater or equal to 6.5% is considered diagnostic of diabetes. HBA1C, [place] Date Value Ref Range Status 07/06/2008 6.2 (H) 4.2 - 5.8 % Final Comment: Test performed by: [facility] [place], [address] [place] [address]. Ejection Fraction: No results found IMPRESSION: Ms. Romo is a 67 year old woman presents for routine follow up. After my examination and review of data, I make the following recommendations. PLAN AND RECOMMENDATIONS: 1. Vitamin D deficiency - ICD9: 268.9, ICD10: E55.9 (primary diagnosis) Resume vitamin D 2. Acquired hypothyroidism - ICD9: 244.9, ICD10: E03.9 - Instructed patient on importance of taking on an empty stomach either first thing in the morning or at bedtime. - continue current dose of Synthroid - LEVOTHYROXINE 50 MCG TABLET 3. Cervicalgia - ICD9: 723.1, ICD10: M54.[address] Lance later today for neck pain. 1. Vitamin D deficiency - ICD9: 268.9, ICD10: E55.9 (primary diagnosis) Resume vitamin D supplementation - CHOLECALCIFEROL (VITAMIN D3) 50,000 UNIT CAPSULE 2. Acquired hypothyroidism - ICD9: 244.9, ICD10: E03.9 - Instructed patient on importance of taking on an empty stomach either first thing in the morning or at bedtime. - continue current dose of Synthroid - LEVOTHYROXINE 50 MCG TABLET 3. Cervicalgia - ICD9: 723.1, ICD10: M54.[address] Lance later today. 4. Hypoalbuminemia - ICD9: 273.8, ICD10: E88.09 Increase protein intake through vegetable based protein powder or any preferred means, try to have some protein with each meal 5. Nausea - ICD9: 787.02, ICD10: R11.0 - ONDANSETRON 4 MG DISINTEGRATING TABLET follow up 6 months with Sun Bennett MD. Advised to go to ER if develops chest pain, shortness of breath, or severe worsening of symptoms. Discussed risks, benefits, alternatives, and potential side effects of medications. Ms. Romo expressed understanding and agreed with the plan. Niesha Rivera APRN.HOTEL [employer]ET ATTENDANT Referring Provider: SELF [[id number]] Allergies As of Date: 11/24/2017 Noted Allergy Reaction EFFEXOR (VENLAFAXINE HCL) 01/01/2010 5 - Intolerance Comments: headaches ANTICHOLINERGICS - QUATERNARY 01/04/2003 Comments: amy Codiene [Other] 01/04/2003 Comments: chest pain AMY (BENZTROPINE MESYLATE) 03/16/2008 Comments: Body went rigid dex rachelle [Other] 03/16/2008 Comments: Medrol dose pack: hallucinatios, diff walking KEFLEX (CEPHALEXIN) 12/18/2011 5 - Intolerance Comments: makes pt too drowsy PHENOTHIAZINES 01/04/2003 Comments: compazine-1 sided facial weakness (like stroke) ROXICET (OXYCODONE-ACETAMINOPHEN) 03/15/2010 9 - Itching Date Reviewed: 11/24/2017 Reviewed by: Amy Wright LPN - Fully Assessed Reason for Visit: F/U 6 Month [444] Primary Visit Diagnosis:Vitamin D deficiency [E55.9] Other Visit Diagnoses:Acquired hypothyroidism [E03.9] Cervicalgia [M54.2] Hypoalbuminemia [E88.09] Nausea [R11.0] Order(s):cholecalciferol, Vitamin D3, (VITAMIN D3) 50,000 unit cap capsuleTake 1 capsule by mouth once each week.Disp: 12 capsuleRfl: 4 levothyroxine (SYNTHROID) 50 mcg tabletTake one tablet by mouth once daily, and 1/2 tablet on Sundays.Disp: 90 tabletRfl: 3 ondansetron orally disintegrating (ZOFRAN ODT) 4 mg disintegrating tabletTake 1 tablet by mouth every 6 hours as needed for Nausea/Vomiting.Disp: 10 tabletRfl: 0 Prescriptions as of 11/24/2017 Sig: CHOLECALCIFEROL (VITAMIN D3) * Take 1 capsule by mouth once * LEVOTHYROXINE 50 MCG TABLET Take one tablet by mouth once* DOCUSATE SODIUM 100 MG CAPSULE Take 100 mg by mouth twice da* LAMOTRIGINE 100 MG TABLET Take 1 tablet by mouth twice * ZOLPIDEM ER 12.5 MG TABLET,EX* Take 1 tablet by mouth at bed* TRAZODONE 100 MG TABLET Take 3 tablets by mouth daily* ARIPIPRAZOLE 5 MG TABLET Take 2 tablets by mouth once * ZOLEDRONIC ACID 5 MG/100 ML I* Inject 100 mL intravenously e* CPAP Mask (per patient preference)* CPAP AutoSV EPAP min= 12 cmH2O, PS* DICLOFENAC 1 % TOPICAL GEL Apply 2 g to affected area fo* OTEZLA ORAL Take 30 mg by mouth twice lulu* STOOL SOFTENER ORAL Take 1 tablet by mouth twice * OXYBUTYNIN CHLORIDE ER 10 MG * Take 10 mg by mouth once vashti* BIOTIN 10,000 MCG CAPSULE Take 15,000 mcg by mouth twic* COENZYME Q10 200 MG CAPSULE Take 200 mg by mouth twice da* PREGABALIN 150 MG CAPSULE Take 1 capsule by mouth once * Patient taking differently: Take 150 mg by mouth twice da* MAGNESIUM ORAL Take 1 tablet by mouth twice * PROBIOTIC ORAL Take 1 capsule by mouth daily* IRON PS COMPLEX-ASCORBIC ACID* Take 1 tablet by mouth daily * LIDOCAINE 5 % TOPICAL PATCH Apply one patch to each hip d* MULTIVITAMIN TABLET daily ONDANSETRON 4 MG DISINTEGRATI* Take 1 tablet by mouth every * COMPOUNDED PRESCRIPTION Powerstep full length insert * Patient not taking: Reported on 10/06/2017 VITAMIN C ORAL Take 1 tablet by mouth once d* CYANOCOBALAMIN (VIT B-12) 1,0* Take 1,000 mcg by mouth once * B COMPLEX TABLET,EXTENDED REL* Take one(1) tablet daily. More... More... Problem List As Of Date 11/24/2017 Noted Resolved Obesity, unspecified [E66.9] INVALID FOR*09/18/2012 More... More... Depressive disorder, not elsewhere classified [*INVALID FOR*10/21/2012 More... Mixed hyperlipidemia [E78.2] INVALID FOR* More... BONE AND CARTILAGE DIS NOS [M89.9, M94.9] INVALID FOR* More... Hypothyroidism [E03.9] INVALID FOR* More... Unspecified sleep apnea [G47.30] INVALID FOR*06/20/2014 More... More... Radiculopathy, lumbar region [M54.16] INVALID FOR* More... More... DISC DIS NEC/NOS-THORAC [M51.9] INVALID FOR* More... CERVICALGIA [M54.2] INVALID FOR* More... More... More... Vitamin D deficiency [E55.9] INVALID FOR* More... More... Insomnia [G47.00] 04/13/2014 Chronic insomnia [F51.04] INVALID FOR*04/13/2014 Class: Chronic More... 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 Obstructive Sleep apnea - AHI 48 [G47.33] INVALID FOR* More... Osteoporosis, unspecified [M81.0] INVALID FOR*08/09/2014 Osteoporosis [M81.0] INVALID FOR* More... Central sleep apnea in conditions classified el*INVALID FOR* DDD (degenerative disc disease), cervical [M50.*INVALID FOR* DDD (degenerative disc disease), lumbar [M51.36]INVALID FOR* Chronic pain [G89.29] INVALID FOR* Memory deficits [R41.3] INVALID FOR* Onychomycosis [B35.1] INVALID FOR* More... Psoriatic arthritis (HCC) [L40.50] INVALID FOR* Rotator cuff arthropathy, left [M12.812] INVALID FOR* Cervical radiculopathy [M54.12] INVALID FOR* Chronic bilateral low back pain with bilateral *INVALID FOR* Epigastric abdominal pain [R10.13] INVALID FOR* More... History of gastric bypass [Z98.84] INVALID FOR* More... Central sleep apnea due to medical condition [G*INVALID FOR* Prescriptions ordered this encounter Disp Refills Start End CHOLECALCIFEROL (VITAMIN D3) 50,000 * 12 c* 4 11/24/2017 Route: ORAL Sig: Take 1 capsule by mouth once each week. LEVOTHYROXINE 50 MCG TABLET 90 t* 3 11/24/2017 Sig: Take one tablet by mouth once daily, and 1/2 tablet on Sundays. ONDANSETRON 4 MG DISINTEGRATING TABL* 10 t* 0 11/24/2017 Route: ORAL Sig: Take 1 tablet by mouth every 6 hours as needed for Nausea/Vomiting. Medications Discontinued During This Encounter cholecalciferol, Vitamin D3, (VITAMI* 12 c* 4 10/04/2016 11/24/2017 Route: ORAL Sig: Take 1 capsule by mouth once each week. Disc: Reason for discontinue is not on file. levothyroxine (SYNTHROID) 50 mcg tab* 90 t* 3 10/03/2016 11/24/2017 Sig: Take one tablet by mouth once daily, and 1/2 tablet on Sundays. Disc: Reason for discontinue is not on file. Disposition: Return in about 6 months (around 05/27/2018). Follow-up and Disposition History Recorded Encounter Status:Closed by NIESHA DUNCAN on 11/24/17 EMERGENCY DEPARTMENT Observed: 11/23/2017 Status: F Source: [place] SUMMARY 11:24 PM [facility] [place] [facility] Medical Records Department [address] [place] [address] Emergency Department Summary 11/23/17 1528 MR#: [id number] Acct: [id number] Name: FRANNIE ROMO Rep #: [id number] : 1950 67 From: Abdulaziz Pradhan MD PCP: Sun Bennett MD Status: DEP ER - ER Visit Summary Date of Service: 11/23/17 Chief Complaint: Neck pain and headache History of Present Illness: The patient is a [address] Bennett and Dr. Lance. She reports that she has a history of chronic neck pain. However, she got a cortisone injection approximately 1 year ago and been doing well till 3 days ago. She reports her pain became much worse. She denies any trauma. No fall, MVA, or change in activity. She reports that she has a throbbing pain is 10 in severity. Is worsened by movement or walking. Is relieved by remaining still and putting a towel under her neck. The pain does not radiate to her arms. She denies any numbness or tingling in her arms. No problems with her bowels or her bladder. Patient reports that this pain radiates over the back of her head to the forehead. She states that this is gradually increased over the course the past 3 days. Physical Examination: Vitals: Stable. Afebrile. General: Well-nourished and well-developed. Head: Normocephalic atraumatic. Neck: Supple, no lymphadenopathy. No JVD. Mild diffuse tenderness palpation with spasm present over the paraspinous musculature on both sides of her the cervical spine and the trapezius muscles. No vertebral tenderness to palpation.. Cardiovascular: Regular rate and rhythm. No murmurs. Respiratory: No respiratory distress. Clear to auscultation bilaterally. Abdominal: Soft, nontender, nondistended, normal bowel sounds. No guarding, rebound, or peritoneal signs. Back: Nontender. Extremities: Nontender, no edema. 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 Normal sensation light touch in a C5-T1 distribution. Skin: Normal color, no rash. Neurologic: Alert and oriented 3. Cranial nerves II through XII are intact. Normal strength and sensation. Psych: Normal affect. Emergency Department Course and Treatment: Patient was treated with Tylenol and did not want anything stronger for pain. Treatment Plan: She will be discharged instructions to add Tylenol to her pain regimen and follow-up with Dr. Lance soon as possible if not improving. Return to the emergency department for any worsening symptoms. Disposition: To home in improved and stable condition. Impression: 1. Neck pain, acute on chronic. 2. Tension headache. This note was generated with Kynded dictation software. It may contain incorrect words, spelling, and punctuation that were not noted in review of the chart prior to signing ED Disposition - Plan for ED Patient: Disposition: Home or Assisted Living Chief Complaint: Headache Instructions: ED Headache Tension Referrals: Sai [place] MD [STAFF PHYSICIAN] - 1-2 Days if not improving What to do if you have Problems For any increased pain, shortness of breath, bleeding, nausea or vomiting, chest pain, or any unexpected problems, contact your Primary Care Provider. Call [email or web address] ([phone]) or report to the closest Emergency Room. Call 911 if necessary. 11/23/17 9952 <Electronically signed by Abdulaziz Pradhan MD> Date Abdulaziz Pradhan MD Cosigner Signature (If Indicated): Date CC: Sun Bennett MD PROGRESS Observed: 11/18/2017 Status: COMPLETED Source: [place] 11:18 AM [facility] [place] REPOSITORY HNO ID: [id number] Author: Ana Contreras Service: (none) Author Type: Physician Type: Progress Notes Filed: 11/18/2017 11:47 AM Note Text: Follow Up Visit 11/18/17 1110 BP: 104/61 BP Site: Right Arm BP Position: Sitting Pulse: 60 Weight: 50.9 kg (112 lb 4.8 oz) Height: 152.4 cm (5') Current Medications: Current Outpatient Prescriptions: docusate sodium (COLACE) 100 mg capsule Take 100 mg by mouth twice daily. Disp: Rfl: lamoTRIgine (LAMICTAL) 100 mg tablet Take 1 tablet by mouth twice daily. Disp: 60 tablet Rfl: 5 Zolpidem (AMBIEN CR) 12.5 mg CR tablet Take 1 tablet by mouth at bedtime as needed for Sedation (generic acceptable) for up to 90 days. Disp: 90 tablet Rfl: 0 traZODone (DESYREL) 100 mg tablet Take 3 tablets by mouth daily at bedtime. Disp: 270 tablet Rfl: 3 ARIPiprazole (ABILIFY) 5 mg tablet Take 2 tablets by mouth once daily. Disp: 180 tablet Rfl: 3 zoledronic acid (RECLAST) 5 mg/100 mL pgbk PREMIX piggyback Inject 100 mL intravenously every year. Disp: 100 mL Rfl: 0 cholecalciferol, Vitamin D3, (VITAMIN D3) 50,000 unit cap capsule Take 1 capsule by mouth once each week. Disp: 12 capsule Rfl: 4 levothyroxine (SYNTHROID) 50 mcg tablet Take one tablet by mouth once daily, and 1/2 tablet on Sundays. Disp: 90 tablet Rfl: 3 CPAP Mask (per patient preference) optional chin strap (if indicated), filters, tubing / heated tubing, heated humidity and lifetime supplies. Dx. JUVENAL G47.33 327.23 Disp: 1 Device Rfl: 0 CPAP AutoSV EPAP min= 12 cmH2O, PS min-max = [id number], Max pressure = 25 cmH2O, Rate =Auto, lifetime supplies, Dx: G47.33, G47.37 Disp: 1 Device Rfl: 0 diclofenac sodium (VOLTAREN) 1 % topical gel Apply 2 g to affected area four times daily. Disp: 1 Tube Rfl: 1 APREMILAST (OTEZLA ORAL) Take 30 mg by mouth twice daily. Disp: Rfl: DOCUSATE CALCIUM (STOOL SOFTENER ORAL) Take 1 tablet by mouth twice daily. Disp: Rfl: oxybutynin XL (DITROPAN XL) 10 mg 24 hr tablet Take 10 mg by mouth once daily. Disp: Rfl: ASCORBIC ACID (VITAMIN C ORAL) Take 1 tablet by mouth once daily. Disp: Rfl: Biotin 10,000 mcg cap Take 15,000 mcg by mouth twice daily. Disp: Rfl: Coenzyme Q10 200 mg cap Take 200 mg by mouth twice daily. Disp: Rfl: pregabalin 150 mg capsule Take 1 capsule by mouth once daily. Dr Lance (Patient taking differently: Take 150 mg by mouth twice daily. Dr Lance) Disp: Rfl: MAGNESIUM OXIDE/MAG AA CHELATE (MAGNESIUM ORAL) Take 1 tablet by mouth twice daily. Disp: Rfl: LACTOBACILLUS RHAMNOSUS GG (PROBIOTIC ORAL) Take 1 capsule by mouth daily at bedtime. Disp: Rfl: Cyanocobalamin (VITAMIN B-12) 1,000 mcg ORAL Lozg Take 1,000 mcg by mouth once daily. Disp: Rfl: FE PS CMPLX/ASCORBIC ACID (IRON PS COMPLEX-ASCORBIC ACID ORAL) Take 1 tablet by mouth daily at bedtime. Disp: Rfl: LIDOCAINE 5 % (700 MG/PATCH) ADHESIVE PATCH Apply one patch to each hip daily. Remove patch after 12 hours. as needed Disp: 180 Rfl: 1 MULTIVITAMIN TAB daily Disp: Rfl: vitamin b complex(B COMPLEX TAB) Take one(1) tablet daily. Disp: Rfl: 0 COMPOUNDED PRESCRIPTION Powerstep full length insert(M72.2) Plantar fasciitis of right foot (primary encounter diagnosis) (Patient not taking: Reported on 10/06/2017 ) Disp: 1 Device Rfl: 0 No current facility-administered medications for this visit. Follow up regarding: Interval Events:Esophageal manometry performed 09/18/2017 was remarkable for: ? Indications Esophageal dysphagia Interpretation: Normal LES pressure and normal LES relaxation Normal peristalsis in 9/10 swallows Failed peristalsis in one swallow Impressions Normal High resolution Esophageal Manometry ? Video barium swallow performed September 11, 2017 was remarkable for: ? IMPRESSION: SEVERE ESOPHAGEAL DYSMOTILITY. ?WIDELY PATENT GE JUNCTION, THEREFORE NOT ACHALASIA. 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 F/U video barium swallow with food 11/06/2017 was remarkable for: IMPRESSION: MODERATE RETROGRADE ESCAPE IN THE PROXIMAL ESOPHAGUS. ? [id number] REFLUX. ?RETENTION OF FOOD IN THE ESOPHAGUS. 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 Transcribe Date/Time: Oct ?2:34P Dictated by : JASON QUIROS MD This examination was interpreted and the report reviewed and electronically signed by: SONU WOLFE MD on Oct ?3:17PM ?EST Results-Findings * * *Final Report* * * DATE OF EXAM: Oct ?2:58PM ? HGX ? [id number] ?- ?XR ESOPHAGRAM ? / PROCEDURE REASON: multiple diagnoses ?? ? * * * * Physician Interpretation * * * * ?ESOPHAGRAM. CLINICAL INFORMATION: ?History of Domenico-en-Y, dysphagia. TECHNIQUE: A biphasic examination of the esophagus was performed utilizing effervescent granules (E-Z-Gas II - 4 grams), high density barium and low density barium. A 700 mg barium sulfate tablet (E-Z-Disk) was administered. Contrast: ORAL: ?250 ml of EZPAQUE ORAL: ?100 ml of EZHD ORAL: ? ? EZ DISK Fluoroscopy radiation summary: Fluoroscopy time: 4:42 (min:sec). Air kerma: 19.6 mGy. RESULT: Caliber: Normal Distal Stricture/Ring: None Motility: Abnormal motility, with moderate retrograde escape in the proximal esophagus Hiatal Hernia: None Reflux: Moderate to severe, to the level of the clavicles Gastric Cardia: Normal Barium Tablet/Other Findings: Tablet passed distally without obstruction. ?Patient ingested barium coated chicken; and the majority of the chicken remained in the esophagus. Dr. Bebe Wolfe was present for the critical portions of the exam. ? Subjective: At times, If the patient eats too much food at any one time, she develops gagging and spontaneous regurgitation of food to her mouth. Esophageal dilation was not helpful. She is S/P bariatric surgery. patient is chronically constipated as she takes opiates for a severe back issue. Dysphagia was not as severe with the Fentanyl. Butrans for pain gave her headaches. Now she is taking Xtampza which is long acting Percocet. Patient notes intermittent heartburn. No H2 antagonists or PPI's. 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 Miranda re other possibly treatments for this condition. OV in one month The majority of the visit was spent counseling and/or coordinating care for the patient. Ijgd-ig-vjte time was 25 minutes. Ana Contreras MD CNOV Observed: 11/18/2017 Status: COMPLETED Source: [place] 11:00 AM [facility] [place] Office Visit ([facility]) FRANNIE ROMO ([id number]) 1950 F [facility] Date Time Provider Department 11/18/17 11:00 AM ANA CONTRERAS [facility] During your visit today, we recorded the following information about you: Pulse Blood pressure Weight Height 60/minute 104/61 50.9 kg 1.524 m Ana Contreras MD 11/18/2017 11:47 AM Signed Follow Up Visit 11/18/17 1110 BP: 104/61 BP Site: Right Arm BP Position: Sitting Pulse: 60 Weight: 50.9 kg (112 lb 4.8 oz) Height: 152.4 cm (5') Current Medications: Current Outpatient Prescriptions: docusate sodium (COLACE) 100 mg capsule Take 100 mg by mouth twice daily. Disp: Rfl: lamoTRIgine (LAMICTAL) 100 mg tablet Take 1 tablet by mouth twice daily. Disp: 60 tablet Rfl: 5 Zolpidem (AMBIEN CR) 12.5 mg CR tablet Take 1 tablet by mouth at bedtime as needed for Sedation (generic acceptable) for up to 90 days. Disp: 90 tablet Rfl: 0 traZODone (DESYREL) 100 mg tablet Take 3 tablets by mouth daily at bedtime. Disp: 270 tablet Rfl: 3 ARIPiprazole (ABILIFY) 5 mg tablet Take 2 tablets by mouth once daily. Disp: 180 tablet Rfl: 3 zoledronic acid (RECLAST) 5 mg/100 mL pgbk PREMIX piggyback Inject 100 mL intravenously every year. Disp: 100 mL Rfl: 0 cholecalciferol, Vitamin D3, (VITAMIN D3) 50,000 unit cap capsule Take 1 capsule by mouth once each week. Disp: 12 capsule Rfl: 4 levothyroxine (SYNTHROID) 50 mcg tablet Take one tablet by mouth once daily, and 1/2 tablet on Sundays. Disp: 90 tablet Rfl: 3 CPAP Mask (per patient preference) optional chin strap (if indicated), filters, tubing / heated tubing, heated humidity and lifetime supplies. Dx. JUVENAL G47.33 327.23 Disp: 1 Device Rfl: 0 CPAP AutoSV EPAP min= 12 cmH2O, PS min-max = [id number], Max pressure = 25 cmH2O, Rate =Auto, lifetime supplies, Dx: G47.33, G47.37 Disp: 1 Device Rfl: 0 diclofenac sodium (VOLTAREN) 1 % topical gel Apply 2 g to affected area four times daily. Disp: 1 Tube Rfl: 1 APREMILAST (OTEZLA ORAL) Take 30 mg by mouth twice daily. Disp: Rfl: DOCUSATE CALCIUM (STOOL SOFTENER ORAL) Take 1 tablet by mouth twice daily. Disp: Rfl: oxybutynin XL (DITROPAN XL) 10 mg 24 hr tablet Take 10 mg by mouth once daily. Disp: Rfl: ASCORBIC ACID (VITAMIN C ORAL) Take 1 tablet by mouth once daily. Disp: Rfl: Biotin 10,000 mcg cap Take 15,000 mcg by mouth twice daily. Disp: Rfl: Coenzyme Q10 200 mg cap Take 200 mg by mouth twice daily. Disp: Rfl: pregabalin 150 mg capsule Take 1 capsule by mouth once daily. Dr Lance (Patient taking differently: Take 150 mg by mouth twice daily. Dr Lance) Disp: Rfl: MAGNESIUM OXIDE/MAG AA CHELATE (MAGNESIUM ORAL) Take 1 tablet by mouth twice daily. Disp: Rfl: LACTOBACILLUS RHAMNOSUS GG (PROBIOTIC ORAL) Take 1 capsule by mouth daily at bedtime. Disp: Rfl: Cyanocobalamin (VITAMIN B-12) 1,000 mcg ORAL Lozg Take 1,000 mcg by mouth once daily. Disp: Rfl: FE PS CMPLX/ASCORBIC ACID (IRON PS COMPLEX-ASCORBIC ACID ORAL) Take 1 tablet by mouth daily at bedtime. Disp: Rfl: LIDOCAINE 5 % (700 MG/PATCH) ADHESIVE PATCH Apply one patch to each hip daily. Remove patch after 12 hours. as needed Disp: 180 Rfl: 1 MULTIVITAMIN TAB daily Disp: Rfl: vitamin b complex(B COMPLEX TAB) Take one(1) tablet daily. Disp: Rfl: 0 COMPOUNDED PRESCRIPTION Powerstep full length insert(M72.2) Plantar fasciitis of right foot (primary encounter diagnosis) (Patient not taking: Reported on 10/06/2017 ) Disp: 1 Device Rfl: 0 No current facility-administered medications for this visit. Follow up regarding: Interval Events:Esophageal manometry performed 09/18/2017 was remarkable for: ? Indications Esophageal dysphagia Interpretation: Normal LES pressure and normal LES relaxation Normal peristalsis in 9/10 swallows Failed peristalsis in one swallow Impressions Normal High resolution Esophageal Manometry ? Video barium swallow performed September 11, 2017 was remarkable for: ? IMPRESSION: SEVERE ESOPHAGEAL DYSMOTILITY. ?WIDELY PATENT GE JUNCTION, THEREFORE NOT ACHALASIA. 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 F/U video barium swallow with food 11/06/2017 was remarkable for: IMPRESSION: MODERATE RETROGRADE ESCAPE IN THE PROXIMAL ESOPHAGUS. ? [id number] REFLUX. ?RETENTION OF FOOD IN THE ESOPHAGUS. 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Livestock: MICHAEL ? Transcribe Date/Time: Oct ?2:34P Dictated by : JASON QUIROS MD This examination was interpreted and the report reviewed and electronically signed by: SONU WOLFE MD on Oct ?3:17PM ?EST Results-Findings * * *Final Report* * * DATE OF EXAM: Oct ?2:58PM ? HGX ? 5378 ?- ?XR ESOPHAGRAM ? / PROCEDURE REASON: multiple diagnoses ?? ? * * * * Physician Interpretation * * * * ?ESOPHAGRAM. CLINICAL INFORMATION: ?History of Domenico-en-Y, dysphagia. TECHNIQUE: A biphasic examination of the esophagus was performed utilizing effervescent granules (E-Z-Gas II - 4 grams), high density barium and low density barium. A 700 mg barium sulfate tablet (E-Z-Disk) was administered. Contrast: ORAL: ?250 ml of EZPAQUE ORAL: ?100 ml of EZHD ORAL: ? ? EZ DISK Fluoroscopy radiation summary: Fluoroscopy time: 4:42 (min:sec). Air kerma: 19.6 mGy. RESULT: Caliber: Normal Distal Stricture/Ring: None Motility: Abnormal motility, with moderate retrograde escape in the proximal esophagus Hiatal Hernia: None Reflux: Moderate to severe, to the level of the clavicles Gastric Cardia: Normal Barium Tablet/Other Findings: Tablet passed distally without obstruction. ?Patient ingested barium coated chicken; and the majority of the chicken remained in the esophagus. Dr. Bebe Wolfe was present for the critical portions of the exam. ? Subjective: At times, If the patient eats too much food at any one time, she develops gagging and spontaneous regurgitation of food to her mouth. Esophageal dilation was not helpful. She is S/P bariatric surgery. patient is chronically constipated as she takes opiates for a severe back issue. Dysphagia was not as severe with the Fentanyl. Butrans for pain gave her headaches. Now she is taking Xtampza which is long acting Percocet. Patient notes intermittent heartburn. No H2 antagonists or PPI's. 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 Miranda re other possibly treatments for this condition. OV in one month The majority of the visit was spent counseling and/or coordinating care for the patient. Htcz-gj-zedv time was 25 minutes. Ana Contreras MD Referring Provider: SELF [[id number]] Allergies As of Date: 11/18/2017 Noted Allergy Reaction EFFEXOR (VENLAFAXINE HCL) 01/01/2010 5 - Intolerance Comments: headaches ANTICHOLINERGICS - QUATERNARY 01/04/2003 Comments: [place] Codiene [Other] 01/04/2003 Comments: chest pain AMY (BENZTROPINE MESYLATE) 03/16/2008 Comments: Body went rigid dex rachelle [Other] 03/16/2008 Comments: Medrol dose pack: hallucinatios, diff walking KEFLEX (CEPHALEXIN) 12/18/2011 5 - Intolerance Comments: makes pt too drowsy PHENOTHIAZINES 01/04/2003 Comments: compazine-1 sided facial weakness (like stroke) ROXICET (OXYCODONE-ACETAMINOPHEN) 03/15/2010 9 - Itching Date Reviewed: 11/18/2017 Reviewed by: Dominic Poole RN - Fully Assessed Reason for Visit: Established Patient [175] Cmt: Follow up for swallowing problems Visit Diagnosis:Other dysphagia [R13.19] Prescriptions as of 11/18/2017 Sig: DOCUSATE SODIUM 100 MG CAPSULE Take 100 mg by mouth twice da* LAMOTRIGINE 100 MG TABLET Take 1 tablet by mouth twice * ZOLPIDEM ER 12.5 MG TABLET,EX* Take 1 tablet by mouth at bed* TRAZODONE 100 MG TABLET Take 3 tablets by mouth daily* ARIPIPRAZOLE 5 MG TABLET Take 2 tablets by mouth once * ZOLEDRONIC ACID 5 MG/100 ML I* Inject 100 mL intravenously e* CHOLECALCIFEROL (VITAMIN D3) * Take 1 capsule by mouth once * LEVOTHYROXINE 50 MCG TABLET Take one tablet by mouth once* CPAP Mask (per patient preference)* CPAP AutoSV EPAP min= 12 cmH2O, PS* DICLOFENAC 1 % TOPICAL GEL Apply 2 g to affected area fo* OTEZLA ORAL Take 30 mg by mouth twice lulu* STOOL SOFTENER ORAL Take 1 tablet by mouth twice * OXYBUTYNIN CHLORIDE ER 10 MG * Take 10 mg by mouth once vashti* VITAMIN C ORAL Take 1 tablet by mouth once d* BIOTIN 10,000 MCG CAPSULE Take 15,000 mcg by mouth twic* COENZYME Q10 200 MG CAPSULE Take 200 mg by mouth twice da* PREGABALIN 150 MG CAPSULE Take 1 capsule by mouth once * Patient taking differently: Take 150 mg by mouth twice da* MAGNESIUM ORAL Take 1 tablet by mouth twice * PROBIOTIC ORAL Take 1 capsule by mouth daily* CYANOCOBALAMIN (VIT B-12) 1,0* Take 1,000 mcg by mouth once * IRON PS COMPLEX-ASCORBIC ACID* Take 1 tablet by mouth daily * LIDOCAINE 5 % TOPICAL PATCH Apply one patch to each hip d* MULTIVITAMIN TABLET daily B COMPLEX TABLET,EXTENDED REL* Take one(1) tablet daily. COMPOUNDED PRESCRIPTION Powerstep full length insert * Patient not taking: Reported on 10/06/2017 More... More... Problem List As Of Date 11/18/2017 Noted Resolved Obesity, unspecified [E66.9] INVALID FOR*09/18/2012 More... More... Depressive disorder, not elsewhere classified [*INVALID FOR*10/21/2012 More... Mixed hyperlipidemia [E78.2] INVALID FOR* More... BONE AND CARTILAGE DIS NOS [M89.9, M94.9] INVALID FOR* More... Hypothyroidism [E03.9] INVALID FOR* More... Unspecified sleep apnea [G47.30] INVALID FOR*06/20/2014 More... More... Radiculopathy, lumbar region [M54.16] INVALID FOR* More... More... DISC DIS NEC/NOS-THORAC [M51.9] INVALID FOR* More... CERVICALGIA [M54.2] INVALID FOR* More... More... More... Vitamin D deficiency [E55.9] INVALID FOR* More... More... Insomnia [G47.00] 04/13/2014 Chronic insomnia [F51.04] INVALID FOR*04/13/2014 Class: Chronic More... 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 Obstructive Sleep apnea - AHI 48 [G47.33] INVALID FOR* More... Osteoporosis, unspecified [M81.0] INVALID FOR*08/09/2014 Osteoporosis [M81.0] INVALID FOR* More... Central sleep apnea in conditions classified el*INVALID FOR* DDD (degenerative disc disease), cervical [M50.*INVALID FOR* DDD (degenerative disc disease), lumbar [M51.36]INVALID FOR* Chronic pain [G89.29] INVALID FOR* Memory deficits [R41.3] INVALID FOR* Onychomycosis [B35.1] INVALID FOR* More... Psoriatic arthritis (HCC) [L40.50] INVALID FOR* Rotator cuff arthropathy, left [M12.812] INVALID FOR* Cervical radiculopathy [M54.12] INVALID FOR* Chronic bilateral low back pain with bilateral *INVALID FOR* Epigastric abdominal pain [R10.13] INVALID FOR* More... History of gastric bypass [Z98.84] INVALID FOR* More... Central sleep apnea due to medical condition [G*INVALID FOR* Disposition: Return in about 1 month (around 12/19/2017). Follow-up and Disposition History Recorded Encounter Status:Closed by ANA CONTRERAS MD on 11/18/17 PROGRESS Observed: 11/06/2017 Status: COMPLETED Source: [place] 3:32 PM [facility] [place] [facility] HNO ID: [id number] Author: Ana Maria Horan Service: (none) Author Type: (none) Type: Progress Notes Filed: 11/06/2017 3:32 PM Note Text: Radiology Service Progress Note PATIENT NAME: Frannie Romo DATE OF SERVICE: November 06, 2017 TIME: 3:32 PM PATIENT IDENTITY VERIFICATION COMPLETED USING TWO (2) METHODS: Patient confirmed name verbally and Date of . PATIENT GENDER DATA: Female. status: : No status: NO. PATIENT RELEVANT IMPLANT DATA REVIEWED: Not Applicable RADIOLOGY DEPARTMENT: General X-ray: Exam(s) Completed: GI/ Procedure(s): Esophogram with barium contrast PERIPHERAL IV DATA: Not applicable SIGNED BY: Ana Maria Torres Rt November 06, 2017 3:32 PM XR ESOPHAGRAM Observed: 11/06/2017 Status: F Source: [place] 2:58 PM [facility] [place] [facility] * * *Final Report* * * DATE OF EXAM: Nov 06 2017 2:58PM HGX [id number] - XR ESOPHAGRAM / PROCEDURE REASON: multiple diagnoses * * * * Physician Interpretation * * * * ESOPHAGRAM. CLINICAL INFORMATION: History of Domenico-en-Y, dysphagia. TECHNIQUE: A biphasic examination of the esophagus was performed utilizing effervescent granules (E-Z-Gas II - 4 grams), high density barium and low density barium. A 700 mg barium sulfate tablet (E-Z-Disk) was administered. Contrast: ORAL: 250 ml of EZPAQUE ORAL: 100 ml of EZHD ORAL: EZ DISK Fluoroscopy radiation summary: Fluoroscopy time: 4:42 (min:sec). Air kerma: 19.6 mGy. RESULT: Caliber: Normal Distal Stricture/Ring: None Motility: Abnormal motility, with moderate retrograde escape in the proximal esophagus Hiatal Hernia: None Reflux: Moderate to severe, to the level of the clavicles Gastric Cardia: Normal Barium Tablet/Other Findings: Tablet passed distally without obstruction. Patient ingested barium coated chicken; and the majority of the chicken remained in the esophagus. Dr. Bebe Wolfe was present for the critical portions of the exam. IMPRESSION: MODERATE RETROGRADE ESCAPE IN THE PROXIMAL ESOPHAGUS. [id number] REFLUX. RETENTION OF FOOD IN THE ESOPHAGUS. 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Livestock: MICHAEL Transcribe Date/Time: Nov 06 2017 2:34P Dictated by : JASON QUIROS MD This examination was interpreted and the report reviewed and electronically signed by: SONU WOLFE MD on Nov 06 2017 3:17PM EST [id number] Observed: 10/28/2017 Status: COMPLETED Source: [place] 11:20 AM [facility] [place] [facility] [facility] ID: [id number] Author: Angie Perdomo MA Service: (none) Author Type: (none) Type: Progress Notes Filed: 10/29/2017 9:52 AM Note Text: Follow Up Visit 10/28/17 1115 Weight: 49.9 kg (110 lb) Height: 153 cm (5' 0.24) Current Medications: Current Outpatient Prescriptions: docusate sodium (COLACE) 100 mg capsule Take 100 mg by mouth twice daily. Disp: Rfl: lamoTRIgine (LAMICTAL) 100 mg tablet Take 1 tablet by mouth twice daily. Disp: 60 tablet Rfl: 5 Zolpidem (AMBIEN CR) 12.5 mg CR tablet Take 1 tablet by mouth at bedtime as needed for Sedation (generic acceptable) for up to 90 days. Disp: 90 tablet Rfl: 0 traZODone (DESYREL) 100 mg tablet Take 3 tablets by mouth daily at bedtime. Disp: 270 tablet Rfl: 3 ARIPiprazole (ABILIFY) 5 mg tablet Take 2 tablets by mouth once daily. Disp: 180 tablet Rfl: 3 zoledronic acid (RECLAST) 5 mg/100 mL pgbk PREMIX piggyback Inject 100 mL intravenously every year. Disp: 100 mL Rfl: 0 levothyroxine (SYNTHROID) 50 mcg tablet Take one tablet by mouth once daily, and 1/2 tablet on Sundays. Disp: 90 tablet Rfl: 3 CPAP Mask (per patient preference) optional chin strap (if indicated), filters, tubing / heated tubing, heated humidity and lifetime supplies. Dx. JUVENAL G47.33 327.23 Disp: 1 Device Rfl: 0 CPAP AutoSV EPAP min= 12 cmH2O, PS min-max = [id number], Max pressure = 25 cmH2O, Rate =Auto, lifetime supplies, Dx: G47.33, G47.37 Disp: 1 Device Rfl: 0 diclofenac sodium (VOLTAREN) 1 % topical gel Apply 2 g to affected area four times daily. Disp: 1 Tube Rfl: 1 APREMILAST (OTEZLA ORAL) Take 30 mg by mouth twice daily. Disp: Rfl: DOCUSATE CALCIUM (STOOL SOFTENER ORAL) Take 1 tablet by mouth twice daily. Disp: Rfl: oxybutynin XL (DITROPAN XL) 10 mg 24 hr tablet Take 10 mg by mouth once daily. Disp: Rfl: ASCORBIC ACID (VITAMIN C ORAL) Take 1 tablet by mouth once daily. Disp: Rfl: Biotin 10,000 mcg cap Take 15,000 mcg by mouth twice daily. Disp: Rfl: Coenzyme Q10 200 mg cap Take 200 mg by mouth twice daily. Disp: Rfl: pregabalin 150 mg capsule Take 1 capsule by mouth once daily. Dr Lance (Patient taking differently: Take 150 mg by mouth twice daily. Dr Lance) Disp: Rfl: MAGNESIUM OXIDE/MAG AA CHELATE (MAGNESIUM ORAL) Take 1 tablet by mouth twice daily. Disp: Rfl: LACTOBACILLUS RHAMNOSUS GG (PROBIOTIC ORAL) Take 1 capsule by mouth daily at bedtime. Disp: Rfl: Cyanocobalamin (VITAMIN B-12) 1,000 mcg ORAL Lozg Take 1,000 mcg by mouth once daily. Disp: Rfl: FE PS CMPLX/ASCORBIC ACID (IRON PS COMPLEX-ASCORBIC ACID ORAL) Take 1 tablet by mouth daily at bedtime. Disp: Rfl: LIDOCAINE 5 % (700 MG/PATCH) ADHESIVE PATCH Apply one patch to each hip daily. Remove patch after 12 hours. as needed Disp: 180 Rfl: 1 MULTIVITAMIN TAB daily Disp: Rfl: COMPOUNDED PRESCRIPTION Powerstep full length insert(M72.2) Plantar fasciitis of right foot (primary encounter diagnosis) (Patient not taking: Reported on 10/06/2017 ) Disp: 1 Device Rfl: 0 cholecalciferol, Vitamin D3, (VITAMIN D3) 50,000 unit cap capsule Take 1 capsule by mouth once each week. (Patient not taking: Reported on 10/28/2017 ) Disp: 12 capsule Rfl: 4 vitamin b complex(B COMPLEX TAB) Take one(1) tablet daily. Disp: Rfl: 0 No current facility-administered medications for this visit. Follow up regarding:Esophageal dysphagia, Suspected esophageal reflux and epigastric gnawing pain Interval Events:EGD 10/02/2017: EGD Findings: ? ? ?The Z-line was regular and was found 39 cm from the incisors. ? ? ?Esophageal dysmotility was noted. ? ? ?There is no endoscopic evidence of Christensen's esophagus or esophagitis ? ? ?in the lower third of the esophagus. ? ? ?A TTS dilator was passed through the scope. Dilation with an 18-19-20 ? ? ?mm x 5.5 cm CRE balloon dilator was performed to 20 mm at the ? ? ?gastroesophageal junction. Estimated blood loss: none. Two biopsies ? ? ?were obtained with cold forceps for evaluation of eosinophilic ? ? ?esophagitis randomly at 29 and 34 cm from the incisors. Estimated ? ? ?blood loss was minimal. ? ? ?Evidence of a Domenico-en-Y gastrojejunostomy was found. The ? ? ?gastrojejunal anastomosis was characterized by minimal erythema. This ? ? ?was traversed. Biopsies were taken with a cold forceps for ? ? ?Helicobacter pylori testing. Estimated blood loss was minimal. ? ? ?The examined jejunum was normal. The pathology report was remarkable for: Specimen #: [id number] Submitting Physician: ANA CONTRERAS FINAL DIAGNOSIS 1. Gastric biopsy (A) - Mild chronic inactive gastritis. - No morphologic evidence of H. pylori organisms. 2. Esophagus at 34 cm, biopsy (B) - Squamous epithelium with mild reactive epithelial changes. - Morphologic features of eosinophilic esophagitis are not seen. - Detached strip of intestinalized epithelium, negative for dysplasia (see comment). 3. Esophagus at 29 cm, biopsy (C) - Squamous epithelium with mild reactive epithelial changes. - Morphologic features of eosinophilic esophagitis are not seen. COMMENT 2. The intestinalized epithelium may represent carryover from screening of the jejunum/ gastrojejunal anastomosis, although the differential diagnosis includes Christensen's esophagus. There is no evidence of dysplasia. Clinical and endoscopic?correlation is recommended. Esophageal manometry performed 09/18/2017 was remarkable for: Indications Esophageal dysphagia Interpretation: Normal LES pressure and normal LES relaxation Normal peristalsis in 9/10 swallows Failed peristalsis in one swallow Impressions Normal High resolution Esophageal Manometry Video barium swallow performed September 11, 2017 was remarkable for: IMPRESSION: SEVERE ESOPHAGEAL DYSMOTILITY. ?WIDELY PATENT GE JUNCTION, THEREFORE NOT ACHALASIA. 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 Subjective:Every time that she eats, she has pain under rib cage. She is eating less than she was eating but still gained 4 pounds in 1 month. Patient is status post cholecystectomy in 1977. Pain has been present intermittently for one year. Note right lower quadrant ultrasound performed September 09, 2017 was remarkable for borderline dilation of the extrahepatic biliary tree in the right hepatic biliary tract was upper range of normal. She is a bowel movement daily basis. She takes Metamucil twice a day as well as a stool softener. She feels as if food sits in her esophagus and esophagus does not empty. Objective: Deferred Impression: Epigastric pain worse with eating. Patient still complains of dysphagia with solid food despite normal results of esophageal manometry Plan: Video barium swallow-patient to bring with her to be deep into barium to evaluate how much food intakes for her to develop her current symptoms and to see if her esophagus fills more proximally with food after eating The majority of the visit was spent counseling and/or coordinating care for the patient. Atvu-yg-dpmi time was 20 minutes. Ana Contreras MD CNOV Observed: 10/28/2017 Status: COMPLETED Source: [place] 11:00 AM [facility] [place] [facility] Office Visit ([facility]) FRANNIE ROMO ([id number]) 1950 F [facility] Date Time Provider Department 10/28/17 11:00 AM ANA CONTRERAS [facility] During your visit today, we recorded the following information about you: Blood pressure Weight Height 89/50 49.9 kg 1.53 m Angie Perdomo [place] 10/28/2017 11:20 AM Signed Follow Up Visit 10/28/17 1115 Weight: 49.9 kg (110 lb) Height: 153 cm (5' 0.24) Current Medications: Current Outpatient Prescriptions: docusate sodium (COLACE) 100 mg capsule Take 100 mg by mouth twice daily. Disp: Rfl: lamoTRIgine (LAMICTAL) 100 mg tablet Take 1 tablet by mouth twice daily. Disp: 60 tablet Rfl: 5 Zolpidem (AMBIEN CR) 12.5 mg CR tablet Take 1 tablet by mouth at bedtime as needed for Sedation (generic acceptable) for up to 90 days. Disp: 90 tablet Rfl: 0 traZODone (DESYREL) 100 mg tablet Take 3 tablets by mouth daily at bedtime. Disp: 270 tablet Rfl: 3 ARIPiprazole (ABILIFY) 5 mg tablet Take 2 tablets by mouth once daily. Disp: 180 tablet Rfl: 3 zoledronic acid (RECLAST) 5 mg/100 mL pgbk PREMIX piggyback Inject 100 mL intravenously every year. Disp: 100 mL Rfl: 0 levothyroxine (SYNTHROID) 50 mcg tablet Take one tablet by mouth once daily, and 1/2 tablet on Sundays. Disp: 90 tablet Rfl: 3 CPAP Mask (per patient preference) optional chin strap (if indicated), filters, tubing / heated tubing, heated humidity and lifetime supplies. Dx. JUVENAL G47.33 327.23 Disp: 1 Device Rfl: 0 CPAP AutoSV EPAP min= 12 cmH2O, PS min-max = [id number], Max pressure = 25 cmH2O, Rate =Auto, lifetime supplies, Dx: G47.33, G47.37 Disp: 1 Device Rfl: 0 diclofenac sodium (VOLTAREN) 1 % topical gel Apply 2 g to affected area four times daily. Disp: 1 Tube Rfl: 1 APREMILAST (OTEZLA ORAL) Take 30 mg by mouth twice daily. Disp: Rfl: DOCUSATE CALCIUM (STOOL SOFTENER ORAL) Take 1 tablet by mouth twice daily. Disp: Rfl: oxybutynin XL (DITROPAN XL) 10 mg 24 hr tablet Take 10 mg by mouth once daily. Disp: Rfl: ASCORBIC ACID (VITAMIN C ORAL) Take 1 tablet by mouth once daily. Disp: Rfl: Biotin 10,000 mcg cap Take 15,000 mcg by mouth twice daily. Disp: Rfl: Coenzyme Q10 200 mg cap Take 200 mg by mouth twice daily. Disp: Rfl: pregabalin 150 mg capsule Take 1 capsule by mouth once daily. Dr Lance (Patient taking differently: Take 150 mg by mouth twice daily. Dr Lance) Disp: Rfl: MAGNESIUM OXIDE/MAG AA CHELATE (MAGNESIUM ORAL) Take 1 tablet by mouth twice daily. Disp: Rfl: LACTOBACILLUS RHAMNOSUS GG (PROBIOTIC ORAL) Take 1 capsule by mouth daily at bedtime. Disp: Rfl: Cyanocobalamin (VITAMIN B-12) 1,000 mcg ORAL Lozg Take 1,000 mcg by mouth once daily. Disp: Rfl: FE PS CMPLX/ASCORBIC ACID (IRON PS COMPLEX-ASCORBIC ACID ORAL) Take 1 tablet by mouth daily at bedtime. Disp: Rfl: LIDOCAINE 5 % (700 MG/PATCH) ADHESIVE PATCH Apply one patch to each hip daily. Remove patch after 12 hours. as needed Disp: 180 Rfl: 1 MULTIVITAMIN TAB daily Disp: Rfl: COMPOUNDED PRESCRIPTION Powerstep full length insert(M72.2) Plantar fasciitis of right foot (primary encounter diagnosis) (Patient not taking: Reported on 10/06/2017 ) Disp: 1 Device Rfl: 0 cholecalciferol, Vitamin D3, (VITAMIN D3) 50,000 unit cap capsule Take 1 capsule by mouth once each week. (Patient not taking: Reported on 10/28/2017 ) Disp: 12 capsule Rfl: 4 vitamin b complex(B COMPLEX TAB) Take one(1) tablet daily. Disp: Rfl: 0 No current facility-administered medications for this visit. Follow up regarding:Esophageal dysphagia, Suspected esophageal reflux and epigastric gnawing pain Interval Events:EGD 10/02/2017: EGD Findings: ? ? ?The Z-line was regular and was found 39 cm from the incisors. ? ? ?Esophageal dysmotility was noted. ? ? ?There is no endoscopic evidence of Christensen's esophagus or esophagitis ? ? ?in the lower third of the esophagus. ? ? ?A TTS dilator was passed through the scope. Dilation with an 18-19-20 ? ? ?mm x 5.5 cm CRE balloon dilator was performed to 20 mm at the ? ? ?gastroesophageal junction. Estimated blood loss: none. Two biopsies ? ? ?were obtained with cold forceps for evaluation of eosinophilic ? ? ?esophagitis randomly at 29 and 34 cm from the incisors. Estimated ? ? ?blood loss was minimal. ? ? ?Evidence of a Domenico-en-Y gastrojejunostomy was found. The ? ? ?gastrojejunal anastomosis was characterized by minimal erythema. This ? ? ?was traversed. Biopsies were taken with a cold forceps for ? ? ?Helicobacter pylori testing. Estimated blood loss was minimal. ? ? ?The examined jejunum was normal. The pathology report was remarkable for: Specimen #: [id number] Submitting Physician: ANA CONTRERAS FINAL DIAGNOSIS 1. Gastric biopsy (A) - Mild chronic inactive gastritis. - No morphologic evidence of H. pylori organisms. 2. Esophagus at 34 cm, biopsy (B) - Squamous epithelium with mild reactive epithelial changes. - Morphologic features of eosinophilic esophagitis are not seen. - Detached strip of intestinalized epithelium, negative for dysplasia (see comment). 3. Esophagus at 29 cm, biopsy (C) - Squamous epithelium with mild reactive epithelial changes. - Morphologic features of eosinophilic esophagitis are not seen. COMMENT 2. The intestinalized epithelium may represent carryover from screening of the jejunum/ gastrojejunal anastomosis, although the differential diagnosis includes Christensen's esophagus. There is no evidence of dysplasia. Clinical and endoscopic?correlation is recommended. Esophageal manometry performed 09/18/2017 was remarkable for: Indications Esophageal dysphagia Interpretation: Normal LES pressure and normal LES relaxation Normal peristalsis in 9/10 swallows Failed peristalsis in one swallow Impressions Normal High resolution Esophageal Manometry Video barium swallow performed September 11, 2017 was remarkable for: IMPRESSION: SEVERE ESOPHAGEAL DYSMOTILITY. ?WIDELY PATENT GE JUNCTION, THEREFORE NOT ACHALASIA. 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 Subjective:Every time that she eats, she has pain under rib cage. She is eating less than she was eating but still gained 4 pounds in 1 month. Patient is status post cholecystectomy in 1977. Pain has been present intermittently for one year. Note right lower quadrant ultrasound performed September 09, 2017 was remarkable for borderline dilation of the extrahepatic biliary tree in the right hepatic biliary tract was upper range of normal. She is a bowel movement daily basis. She takes Metamucil twice a day as well as a stool softener. She feels as if food sits in her esophagus and esophagus does not empty. Objective: Deferred Impression: Epigastric pain worse with eating. Patient still complains of dysphagia with solid food despite normal results of esophageal manometry Plan: Video barium swallow-patient to bring with her to be deep into barium to evaluate how much food intakes for her to develop her current symptoms and to see if her esophagus fills more proximally with food after eating The majority of the visit was spent counseling and/or coordinating care for the patient. [id number] time was 20 minutes. Ana Contreras MD Referring Provider: SELF [[id number]] Allergies As of Date: 10/28/2017 Noted Allergy Reaction EFFEXOR (VENLAFAXINE HCL) 01/01/2010 5 - Intolerance Comments: headaches ANTICHOLINERGICS - QUATERNARY 01/04/2003 Comments: cogentin Codiene [Other] 01/04/2003 Comments: chest pain GEORGIAENTIN (BENZTROPINE MESYLATE) 03/16/2008 Comments: Body went rigid dex rachelle [Other] 03/16/2008 Comments: Medrol dose pack: hallucinatios, diff walking KEFLEX (CEPHALEXIN) 12/18/2011 5 - Intolerance Comments: makes pt too drowsy PHENOTHIAZINES 01/04/2003 Comments: compazine-1 sided facial weakness (like stroke) ROXICET (OXYCODONE-ACETAMINOPHEN) 03/15/2010 9 - Itching Date Reviewed: 10/28/2017 Reviewed by: Angie Perdomo MA - Fully Assessed Reason for Visit: Follow Up [171] Cmt: EGD surgery Primary Visit Diagnosis:Other dysphagia [R13.19] Other Visit Diagnosis:Epigastric discomfort [R10.13] Order(s):XR ESOPHAGRAM [[id number]] Order #: [id number] FUTURE Prescriptions as of 10/28/2017 Sig: DOCUSATE SODIUM 100 MG CAPSULE Take 100 mg by mouth twice da* LAMOTRIGINE 100 MG TABLET Take 1 tablet by mouth twice * ZOLPIDEM ER 12.5 MG TABLET,EX* Take 1 tablet by mouth at bed* TRAZODONE 100 MG TABLET Take 3 tablets by mouth daily* ARIPIPRAZOLE 5 MG TABLET Take 2 tablets by mouth once * ZOLEDRONIC ACID 5 MG/100 ML I* Inject 100 mL intravenously e* LEVOTHYROXINE 50 MCG TABLET Take one tablet by mouth once* CPAP Mask (per patient preference)* CPAP AutoSV EPAP min= 12 cmH2O, PS* DICLOFENAC 1 % TOPICAL GEL Apply 2 g to affected area fo* OTEZLA ORAL Take 30 mg by mouth twice lulu* STOOL SOFTENER ORAL Take 1 tablet by mouth twice * OXYBUTYNIN CHLORIDE ER 10 MG * Take 10 mg by mouth once vashti* VITAMIN C ORAL Take 1 tablet by mouth once d* BIOTIN 10,000 MCG CAPSULE Take 15,000 mcg by mouth twic* COENZYME Q10 200 MG CAPSULE Take 200 mg by mouth twice da* PREGABALIN 150 MG CAPSULE Take 1 capsule by mouth once * Patient taking differently: Take 150 mg by mouth twice da* MAGNESIUM ORAL Take 1 tablet by mouth twice * PROBIOTIC ORAL Take 1 capsule by mouth daily* CYANOCOBALAMIN (VIT B-12) 1,0* Take 1,000 mcg by mouth once * IRON PS COMPLEX-ASCORBIC ACID* Take 1 tablet by mouth daily * LIDOCAINE 5 % TOPICAL PATCH Apply one patch to each hip d* MULTIVITAMIN TABLET daily COMPOUNDED PRESCRIPTION Powerstep full length insert * Patient not taking: Reported on 10/06/2017 CHOLECALCIFEROL (VITAMIN D3) * Take 1 capsule by mouth once * Patient not taking: Reported on 10/28/2017 B COMPLEX TABLET,EXTENDED REL* Take one(1) tablet daily. More... More... Problem List As Of Date 10/28/2017 Noted Resolved Obesity, unspecified [E66.9] INVALID FOR*09/18/2012 More... More... Depressive disorder, not elsewhere classified [*INVALID FOR*10/21/2012 More... Mixed hyperlipidemia [E78.2] INVALID FOR* More... BONE AND CARTILAGE DIS NOS [M89.9, M94.9] INVALID FOR* More... Hypothyroidism [E03.9] INVALID FOR* More... Unspecified sleep apnea [G47.30] INVALID FOR*06/20/2014 More... More... Radiculopathy, lumbar region [M54.16] INVALID FOR* More... More... DISC DIS NEC/NOS-THORAC [M51.9] INVALID FOR* More... CERVICALGIA [M54.2] INVALID FOR* More... More... More... Vitamin D deficiency [E55.9] INVALID FOR* More... More... Insomnia [G47.00] 04/13/2014 Chronic insomnia [F51.04] INVALID FOR*04/13/2014 Class: Chronic More... 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 Obstructive Sleep apnea - AHI 48 [G47.33] INVALID FOR* More... Osteoporosis, unspecified [M81.0] INVALID FOR*08/09/2014 Osteoporosis [M81.0] INVALID FOR* More... Central sleep apnea in conditions classified el*INVALID FOR* DDD (degenerative disc disease), cervical [M50.*INVALID FOR* DDD (degenerative disc disease), lumbar [M51.36]INVALID FOR* Chronic pain [G89.29] INVALID FOR* Memory deficits [R41.3] INVALID FOR* Onychomycosis [B35.1] INVALID FOR* More... Psoriatic arthritis (HCC) [L40.50] INVALID FOR* Rotator cuff arthropathy, left [M12.812] INVALID FOR* Cervical radiculopathy [M54.12] INVALID FOR* Chronic bilateral low back pain with bilateral *INVALID FOR* Epigastric abdominal pain [R10.13] INVALID FOR* More... History of gastric bypass [Z98.84] INVALID FOR* More... Central sleep apnea due to medical condition [G*INVALID FOR* Disposition: Return for OV in 3-4 weeks. Follow-up and Disposition History Recorded Encounter Status:Closed by ANA CONTRERAS MD on 10/29/17 PROGRESS Observed: 10/06/2017 Status: COMPLETED Source: [place] 1:54 PM [facility] REPOSITORY HNO ID: [id number] Author: Selwyn Allred Service: (none) Author Type: Physician Type: Progress Notes Filed: 11/06/2017 10:47 PM Note Text: Last Visit: June 03, 2016 Reason for consultation: Evaluation of low bone density HISTORY OF PRESENT ILLNESS; Ms. Romo is a 67 year old woman came for follow up visit regading low bone mass. This was detected in had total hysterectomy in her 30s. Took HRT in the form of compounding cream til 2004, then [place] and stopped taking. Took Fosamax and Boniva a total of 4 yrs in . At the beginning she was found to lose her fariba so underwent DEXA scan showed osteopenia at the beginning. Recently, she had a repeat DEXA scan showed osteoporosis and due her h/o gastric by pass surgery her her PCP has refereed her to us for expert opinion in this regard and possible further Rx. Has h/o constant pain in her torso, from neck to tail bone and getting sterid injections in the spine, also flora patches. Has h/o stomach ulcer in the past before gastric by pass surgery and also she has h/o GERD. Got first Reclast infusion in May 2014. Taking new meds for psoriatic arthritis. S/p shock wave Rx for kidney stone and passed the stone. May 16, 2015: Feeling better, no more kidney stone, planning to get next Reclast infusion in May 2015, new labs are not done. January 08, 2016: as per pt she got some rashes next day after the last reclast injection in May 2015, the rash was a patch on her upper left chest erythematous and itching, used hydrocortisone cream didn't work so, she used another cream. Which took about 3 months to resolve her rash, she didn't had any reaction last year so she is not sure this is from reclast or not? So I have given her option for prolia, but she doesn't want to take, June 03, 2016: got her reclast on Friday, so far no skin rash, no other complaints, no reaction, however, her NTX is still high, but lower than before. Takes sleeping pills to sleep, has severe JUVENAL and using C-PAP, followed by sleep medicine. February 03, 2017: received last Reclast IV infusion in May 2016, so next dose will be in May 2017, feeling more tired than before, taking Ambien to get sleep, 4-6 hrs, doesn't get sound sleep. Didn't get any reaction to the IV infusion this time. October 06, 2017: got reclast IV in May 2017, doing well bone varela but has pain spinal stenosis, OA, height is stable, no fracture recently, no more headaches as she changed her pain meds. OP RISK FACTORS: October 06, 2017 Height: loss: Yes: 2 1/2 inches lost Weight <127 lbs: Yes : 114 lbs. [place]cuim Intake: - Childhood: low - Young adulthood: low - Current dose: Taken in pill form: none recently for last 3 months Vitamin D Intake: not taking Menstrual history: has h/o total hysterectomy @ her 30s Menopause at age: 32 HRT: No, Yes for 4 years Current HRT: No history: No obstetric history on file. Fall history: Yes Fracture history: None Family history of hip or spine fx: - mother: No - grandmother: No - sister:Yes, wrist - other:none Family history of breast cancer: Yes. Relationship Aunt and Grandmother MEDICATION RISK FACTORS: Yes - prednisone or systemic steroids, anti-convulsants, and proton pump inhibitor, Caffeine: 1 c/day Smoking History: Never smoked Alcohol Consumptions: None Exercise: no regular exercise program Sodas: 12 Oz/day Overall, the patient has no acute complaints at this time. PAST MEDICAL HISTORY Diagnosis Date - Abdominal pain, unspecified site 02/28/2008 Reportedly had sigmoid resetion for adhesions about age 37: mutiple surgeries for adhesions, endometriosis, etc Camelia, LUIS (no comment on ovaries), cliff in sigmoid area by CT in 04-06 O'Demario (Colorectal surgery) 12-05: prob small midline, incis hernia, did not rec repeat EGD/Colon/Surg-more adhesions WBC 5.8 K, HCT 43% in 01-04 Int hems ligated in 01-04 per [facility] - Abnormal glucose tolerance test 01/16/2012 - Abnormality of gait 05/01/2011 - Acute gastritis without mention of hemorrhage 11/21/2009 - Benign paroxysmal positional vertigo 06/10/2011 - Calculus of kidney - Cancer (HCC) - Cervicalgia - Colon polyp, hyperplastic May 2006 - Depression - Depressive disorder, not elsewhere classified - Disorder of bone and cartilage, unspecified - Disorders of bursae and tendons in shoulder region, unspecified 02/28/2008 Arthroscopic R rotator cuff and biceps tendon repair 05-08-[address] Karthik Bella at [facility] - Dysphagia prior esophageal dilations twice - Dysphagia - Dysphagia, unspecified(787.20) - Epilepsy ([facility]) 02/12/2012 - Esophageal reflux - Esophagitis, unspecified - Examination of participant in clinical trial 03/01/2010 IRB: [id number] Study Title: Pelvic floor Disorders in Bariatric Surgery Patients Visit: Baseline PI: Patricia Patel MD Supervisor Finishing Room/Pager:Mayra Mar RN # [phone] Patient seen for PFD research study (IRB 06-184). Patient agreed to participate in the QOL survey portion of the trial. Patient completed baseline survey. SIG:Mayra Mar RN - Grief 11/20/2011 - Gum symptoms - History of bladder cancer - Insomnia - Malignant neoplasm of bladder, part unspecified 02/15/2008 Biopsy 11-04: non-invasive, low grade papillary carcinoma Cystosocpy 11-[address] David López in [place]: no tumors, stones or foreign bodies Urology rec Cystoscopy in 03-07 and then q 6 mo for 3 years then yearly Urology rec antibiotics in 08-06 for chronic cystitis after voided urine for cytology: may treat for 3-6 months - Microscopic hematuria 02/21/2010 - Nasal congestion 08/18/2013 - Nasal obstruction 08/31/2014 - Obesity, unspecified 11-07-09 stated BMI 38 ht: 61 wt: 201 lbs - Obstructive sleep apnea [facility] - Other and unspecified disc disorder of thoracic region - Other and unspecified hyperlipidemia - Other pain disorders related to psychological factors 05/15/2011 - Pain in limb 06/09/2008 Pain reportedly started after a fall in the shower in 2007 Brown 05-09: rec Neurontin Elayne 06-06: pain in distribution of deep peroneal nerve, change to Lyrica and sponge MLA with met and RLD Referred to [facility] in 07-07 Basali to manage pain meds as of 11-06 - Persistent disorder of initiating or maintaining sleep - Personal history of malignant neoplasm of bladder 08/29/2009 - 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 - Rotator cuff (capsule) sprain 11/20/2010 - Shoulder pain 05/09/2009 - Status post bariatric surgery - Thoracic or lumbosacral neuritis or radiculitis, unspecified - Unspecified hypothyroidism - Unspecified sleep apnea PAST SURGICAL HISTORY Procedure Laterality Date - APPENDECTOMY 1983 - COLONOSCOP W/ OR W/O [facility] SPEC [place] 2006 Colonoscopy - COLONOSCOP W/ OR W/O [facility] SPEC 04/10/06 Colonoscopy/ [place] - COLONOSCOP W/ OR W/O [facility] SPEC 12/01/2013 Colonoscopy - CYSTOSCOPY 2010 left stent placement - CYSTOSCOPY removal of bladder lesion- malignant. - EGD W/O [facility] SPECIMEN W/BX 03/08/08 - EGD W/O OR W/BRUSH/WASH 11/21/2009 EGD - EGD W/O OR W/BRUSH/WASH 12/01/2013 EGD - EGD W/O OR W/BRUSH/WASH 03/28/15 EGD out [facility] - EGD W/O OR W/BRUSH/WASH 08/19/2017 EGD - KNEE SCOPE,DIAGNOSTIC Arthroscopy, knee right - PAST SURGICAL HISTORY OF adhesions, partial sigmoid resection, bladder lift - PAST SURGICAL HISTORY OF 2005 left Hammertoe correction right 2nd and 3rd toes - PAST SURGICAL HISTORY OF 1992 Left shoulder surgery - PAST SURGICAL HISTORY OF 09/07 left shoulder - PAST SURGICAL HISTORY OF 03-09-10 Bariatric, with hernia repair. - PAST SURGICAL HISTORY OF 1983 oophrectomy - RECONSTRUCT PROX HUMERAL IMPLANT 2006 Arthroplasty, shoulder right - REMOVAL GALLBLADDER 1980 Cholecystectomy - TOTAL ABDOM HYSTERECTOMY 1982 Hysterectomy, LUIS FAMILY HISTORY Problem Relation Age of Onset - Stroke Mother - Heart Mother - Hypertension Mother - Diabetes Mother - GI Mother colitis - Alzheimer's Disease Father - Heart Father Bypass - Breast Cancer Paternal Aunt - Breast Cancer Paternal Grandmother - GI Sister colitis Social History Substance Use Topics - Smoking status: Never Smoker - Smokeless tobacco: Never Used - Alcohol use No Family and social history reviewed and updated in the system. Social History Substance Use Topics - Smoking status: Never Smoker - Smokeless tobacco: Never Used - Alcohol use No SOCIAL HISTORY Marital Status: to Seng with 2 children Tobacco Use: Never Alcohol Use: No Drug Use: No Sexual Activity: Not on file Current Outpatient Prescriptions: lamoTRIgine (LAMICTAL) 100 mg tablet Take 1 tablet by mouth twice daily. Disp: 60 tablet Rfl: 5 Zolpidem (AMBIEN CR) 12.5 mg CR tablet Take 1 tablet by mouth at bedtime as needed for Sedation (generic acceptable) for up to 90 days. Disp: 90 tablet Rfl: 0 traZODone (DESYREL) 100 mg tablet Take 3 tablets by mouth daily at bedtime. Disp: 270 tablet Rfl: 3 ARIPiprazole (ABILIFY) 5 mg tablet Take 2 tablets by mouth once daily. Disp: 180 tablet Rfl: 3 zoledronic acid (RECLAST) 5 mg/100 mL pgbk PREMIX piggyback Inject 100 mL intravenously every year. Disp: 100 mL Rfl: 0 cholecalciferol, Vitamin D3, (VITAMIN D3) 50,000 unit cap capsule Take 1 capsule by mouth once each week. Disp: 12 capsule Rfl: 4 levothyroxine (SYNTHROID) 50 mcg tablet Take one tablet by mouth once daily, and 1/2 tablet on Sundays. Disp: 90 tablet Rfl: 3 CPAP Mask (per patient preference) optional chin strap (if indicated), filters, tubing / heated tubing, heated humidity and lifetime supplies. Dx. JUVENAL G47.33 327.23 Disp: 1 Device Rfl: 0 CPAP AutoSV EPAP min= 12 cmH2O, PS min-max = [id number], Max pressure = 25 cmH2O, Rate =Auto, lifetime supplies, Dx: G47.33, G47.37 Disp: 1 Device Rfl: 0 diclofenac sodium (VOLTAREN) 1 % topical gel Apply 2 g to affected area four times daily. Disp: 1 Tube Rfl: 1 APREMILAST (OTEZLA ORAL) Take 30 mg by mouth twice daily. Disp: Rfl: DOCUSATE CALCIUM (STOOL SOFTENER ORAL) Take 1 tablet by mouth twice daily. Disp: Rfl: oxybutynin XL (DITROPAN XL) 10 mg 24 hr tablet Take 10 mg by mouth once daily. Disp: Rfl: ASCORBIC ACID (VITAMIN C ORAL) Take 1 tablet by mouth once daily. Disp: Rfl: Biotin 10,000 mcg cap Take 15,000 mcg by mouth twice daily. Disp: Rfl: Coenzyme Q10 200 mg cap Take 200 mg by mouth twice daily. Disp: Rfl: pregabalin 150 mg capsule Take 1 capsule by mouth once daily. Dr Lance (Patient taking differently: Take 150 mg by mouth twice daily. Dr Lanec) Disp: Rfl: MAGNESIUM OXIDE/MAG AA CHELATE (MAGNESIUM ORAL) Take 1 tablet by mouth twice daily. Disp: Rfl: LACTOBACILLUS RHAMNOSUS GG (PROBIOTIC ORAL) Take 1 capsule by mouth daily at bedtime. Disp: Rfl: Cyanocobalamin (VITAMIN B-12) 1,000 mcg ORAL Lozg Take 1,000 mcg by mouth once daily. Disp: Rfl: FE PS CMPLX/ASCORBIC ACID (IRON PS COMPLEX-ASCORBIC ACID ORAL) Take 1 tablet by mouth daily at bedtime. Disp: Rfl: LIDOCAINE 5 % (700 MG/PATCH) ADHESIVE PATCH Apply one patch to each hip daily. Remove patch after 12 hours. as needed Disp: 180 Rfl: 1 vitamin b complex(B COMPLEX TAB) Take one(1) tablet daily. Disp: Rfl: 0 docusate sodium (COLACE) 100 mg capsule Take 100 mg by mouth twice daily. Disp: Rfl: COMPOUNDED PRESCRIPTION Powerstep full length insert(M72.2) Plantar fasciitis of right foot (primary encounter diagnosis) (Patient not taking: Reported on 10/06/2017 ) Disp: 1 Device Rfl: 0 MULTIVITAMIN TAB daily Disp: Rfl: No current facility-administered medications for this visit. Allergies As of Date: 10/06/2017 Allergen Noted Reaction EFFEXOR [VENLAFAXINE HCL] 01/01/2010 Intolerance ANTICHOLINERGICS - QUATERNARY 01/04/2003 CODIENE [OTHER] 01/04/2003 COGENTIN [BENZTROPINE MESYLATE] 03/16/2008 DEX RACHELLE [OTHER] 03/16/2008 KEFLEX [CEPHALEXIN] 12/18/2011 Intolerance PHENOTHIAZINES 01/04/2003 ROXICET [OXYCODONE-ACETAMINOPHEN] 03/15/2010 Itching Fully Assessed 10/06/2017 REVIEW OF SYSTEMS: October 06, 2017 HEENT: better no more headaches, no more difficulty swallowing, due to esophageal spasm, s/p endoscopy and going for swallowing test, followed by GI Pulmonary: positive for severe JUVENAL on Bi-PAP CV: negative, has no symptoms but has h/o mitral valve proplase Renal: normal, no more kidney stone recently;y GI: no more nausea by a new pill for psoriatic arthritis since she started to take this pill at HS instead of morning VALVE INSERTER: surgical menopause -LMP: No LMP recorded. Patient has had a hysterectomy. -Hysterectomy: Yes, In her 30s -Ovaries: BSO, age 30s -Breast Cancer: no Neurological: positive h/o Sz controlled on meds Vascular: negative Musculoskeletal: much better less positive arthritis all over, hands and spike is worse Endocrine: stable on meds for hypothyroid All other systems: non-contributory PHYSICAL EXAM: BP 88/55 Pulse 67 Ht 154.9 cm (5' 1) Wt 51 kg (112 lb 6.4 oz) SpO2 95% BMI 21.24 kg/m2 October 06, 2017 General: alert, in no acute distress, Skin: skin color, texture, turgor normal, no rashes or lesions. Head: normocephalic, no masses, lesions, tenderness or abnormalities. Eyes: Anicteric sclera. Pupils are equally round and reactive to light. Extraocular movements are intact. Oropharynx: Lips, mucosa, and tongue normal, teeth and gums normal, oropharynx normal Neck: Supple, no adenopathy; thyroid symmetric, normal size, no bruits Heart: RRR without murmur, gallop, or rubs. No ectopy Musculoskeletal: ? Visual inspection: Cervical: Kyphosis Thoracic: Kyphoscoliosis Lumbar: Kyphosis ? Palpation Spinous processes: L3 Muscle Bulk: Normal and symmetrical in the upper AND lower extremities. Muscle Tone: decreased ? Motor: 4/5 in all muscle groups ? Gait: Intact and symmetrical to touch all over, Vibration and position is intact DATA: Component Latest Ref Rng AND Units 09/30/2017 Protein, Total 6.3 - 8.0 g/dL 6.2 (L) Albumin 3.9 - 4.9 g/dL 4.2 Calcium 8.5 - 10.2 mg/dL 8.8 Bilirubin, Total 0.2 - 1.3 mg/dL 0.6 Alkaline Phosphatase 32 - 117 U/L 108 AST 13 - 35 U/L 31 Glucose 74 - 99 mg/dL 79 BUN 7 - 21 mg/dL 9 Creatinine 0.58 - 0.96 mg/dL 0.70 Sodium 136 - 144 mmol/L 144 Potassium 3.7 - 5.1 mmol/L 4.3 Chloride 97 - 105 mmol/L 103 CO2 22 - 30 mmol/L 31 (H) Anion Gap 9 - 18 mmol/L 10 ALT 7 - 38 U/L 38 eGFR- >60 eGFR-All Other Races . >60 WBC 3.70 - 11.00 k/uL 6.49 RBC 3.90 - 5.20 m/uL 4.55 Hemoglobin 11.5 - 15.5 g/dL 14.3 Hematocrit 36.0 - 46.0 % 44.3 MCV 80.0 - 100.0 fL 97.4 MCH 26.0 - 34.0 pG 31.4 MCHC 30.5 - 36.0 g/dL 32.3 RDW-CV 11.5 - 15.0 % 12.7 Platelet Count 150 - 400 k/uL 316 MPV 9.0 - 12.7 fL 9.9 Absolute nRBC <0.01 k/uL <0.01 Hemoglobin A1C 4.3 - 5.6 % 5.2 Estimated Average Glucose mg/dL 103 TSH 0.400 - 5.500 uU/mL 1.390 Free T3 2.3 - 4.1 pg/mL 2.8 Free T4 0.9 - 1.7 ng/dL 1.2 Component Latest Ref Rng AND Units 09/02/2016 10/11/2016 10/11/2016 01/22/2017 12:24 PM 12:24 PM WBC 3.70 - 11.00 k/uL 5.52 5.04 RBC 3.90 - 5.20 m/uL 4.41 4.46 Hemoglobin 11.5 - 15.5 g/dL 14.0 13.9 Hematocrit 36.0 - 46.0 % 43.4 44.0 MCV 80.0 - 100.0 fL 98.4 98.7 MCH 26.0 - 34.0 pG 31.7 31.2 MCHC 30.5 - 36.0 g/dL 32.3 31.6 RDW-CV 11.5 - 15.0 % 12.5 12.4 Platelet Count 150 - 400 k/uL 268 227 MPV 9.0 - 12.7 fL 10.9 10.9 Neut% % 47.8 50.9 Abs Neut (ANC) 1.45 - 7.50 k/uL 2.64 2.55 Lymph% % 42.4 40.5 Abs Lymph 1.00 - 4.00 k/uL 2.34 2.04 Rogers% % 6.9 6.2 Abs Rogers <0.87 k/uL 0.38 0.31 Eosin% % 2.0 1.6 Abs Eosin <0.46 k/uL 0.11 0.08 Baso% % 0.9 0.8 Abs Baso <0.11 k/uL 0.05 0.04 Nucleated Reds 0 /100 WBC 0.0 0.0 Absolute nRBC <0.01 k/uL 0.00 <0.01 Diff Type Auto Diff Auto Diff Protein, Total 6.3 - 8.0 g/dL 6.2 (L) Albumin 3.9 - 4.9 g/dL 4.1 Calcium 8.5 - 10.2 mg/dL 8.8 8.9 Bilirubin, Total 0.2 - 1.3 mg/dL 0.7 Alkaline Phosphatase 32 - 117 U/L 90 AST 13 - 35 U/L 26 Glucose 74 - 99 mg/dL 88 86 BUN 7 - 21 mg/dL 17 17 Creatinine 0.58 - 0.96 mg/dL 0.73 0.72 Sodium 136 - 144 mmol/L 145 (H) 144 Potassium 3.7 - 5.1 mmol/L 4.1 4.3 Chloride 97 - 105 mmol/L 106 (H) 105 CO2 22 - 30 mmol/L 26 25 Anion Gap 9 - 18 mmol/L 13 14 ALT 7 - 38 U/L 21 eGFR- >60 >60 eGFR-All Other Races . >60 >60 Cross-Link N-telopeptide 14.4 - 75.0 nM/mM Creat 68.7 TSH 0.400 - 5.500 uU/mL 0.959 Free T4 0.9 - 1.7 ng/dL 1.3 Hep C Antibody IA Negative Negative WSR 0 - 20 mm/hr 2 CRP <0.9 mg/dL <0.1 Component Latest Ref Rng AND Units 01/09/2016 05/29/2016 Cross-Link N-telopeptide 14.4 - 75.0 nM/mM Creat 98.3 (H) 79.9 (H) Component Latest Ref Rng 06/01/2014 05/18/2015 Cross-Link N-telopeptide 14.4 - 75.0 nM/mM Creat 121.6 (H) 67.2 Component Latest Ref Rng AND Units 01/09/2016 04/16/2016 04/16/2016 05/29/2016 11:54 AM 12:00 PM WBC 3.70 - 11.00 k/uL 4.89 RBC 3.90 - 5.20 m/uL 4.27 Hemoglobin 11.5 - 15.5 g/dL 13.2 Hematocrit 36.0 - 46.0 % 41.0 MCV 80.0 - 100.0 fL 96.0 MCH 26.0 - 34.0 pG 30.9 MCHC 30.5 - 36.0 g/dL 32.2 RDW-CV 11.5 - 15.0 % 13.2 Platelet Count 150 - 400 k/uL 230 MPV 9.0 - 12.7 fL 10.0 Neut% % 36.4 Abs Neut (ANC) 1.45 - 7.50 k/uL 1.78 Lymph% % 53.4 Abs Lymph 1.00 - 4.00 k/uL 2.61 Rogers% % 5.5 Abs Rogers 0.00 - 0.86 k/uL 0.27 Eosin% % 4.1 Abs Eosin 0.00 - 0.45 k/uL 0.20 Baso% % 0.6 Abs Baso 0.00 - 0.10 k/uL 0.03 Diff Type Auto Diff Protein, Total 6.3 - 8.0 g/dL 6.2 (L) 6.1 (L) Albumin 3.9 - 4.9 g/dL 4.1 4.1 Calcium 8.6 - 10.0 mg/dL 8.3 (L) 8.9 Bilirubin, Total 0.2 - 1.3 mg/dL 0.7 0.6 Alkaline Phosphatase 32 - 117 U/L 113 106 AST 13 - 35 U/L 47 (H) 50 (H) Glucose 74 - 99 mg/dL 86 78 BUN 7 - 21 mg/dL 13 13 Creatinine 0.58 - 0.96 mg/dL 0.76 0.78 Sodium 136 - 144 mmol/L 144 139 Potassium 3.7 - 5.1 mmol/L 3.7 3.7 Chloride 97 - 105 mmol/L 104 100 CO2 22 - 30 mmol/L 28 27 Anion Gap 9 - 18 mmol/L 12 12 ALT 7 - 38 U/L 53 (H) 52 (H) eGFR- >60 >60 eGFR-All Other Races . >60 >60 Triglyceride 30 - 149 mg/dL 89 Cholesterol 100 - 199 mg/dL 171 HDL Cholesterol >55 mg/dL 83 VLDL Cholesterol 6 - 40 mg/dL 18 LDL Cholesterol 60 - 129 mg/dL 70 Fasting Time hrs 13 TC:HDL Ratio 1.00 - 5.00 2.06 LDL:HDL Ratio 0.50 - 3.55 0.84 Non HDL Cholesterol 90 - 159 mg/dL 88 (L) Cross-Link N-telopeptide 14.4 - 75.0 nM/mM Creat 98.3 (H) 79.9 (H) Vitamin D 25 Hydroxy 31.0 - 80.0 ng/mL 51.1 36.7 TSH 0.400 - 5.500 uU/mL 0.464 0.734 Free T4 0.9 - 1.7 ng/dL 1.2 1.3 ---Final Report---- DATE OF EXAM: Mar 22 2014 8:47AM [id number] - BD AP SPINE/HIP - LEFT / PROCEDURE REASON: Disorder of bone and cartilage, unspecified ---- Physician Interpretation ----- RESULT: PROCEDURE: BD AP SPINE/HIP INDICATION: Disorder of bone and cartilage, unspecified TECHNIQUE: Low dose AP spine and hip images COMPARISON: 03/19/2010 LUMBAR SPINE: The bone mineral density from L1 through L4 is 0.747 grams per square centimeter which yields a T-score of -2.7. This represents 8.5% worsening. LEFT HIP: The bone mineral density of the total region of the hip is 0.709 grams per square centimeter which yields a T-score of -1.9. This represents 24.1% worsening. LEFT FEMORAL NECK: The bone mineral density of the femoral neck is 0.579 grams per square centimeter which yields a T-score of -2.4. This is significantly worse. IMPRESSION: Osteoporosis in the lumbar spine and severe osteopenia in the left femoral neck, worse in both regions compared to the prior study. Component Latest Ref Rng 10/10/2014 10/12/2014 10/12/2014 03/07/2015 04/11/2015 10:01 AM 10:01 AM Triglyceride 30 - 149 mg/dL 159 (H) Cholesterol 100 - 199 mg/dL 166 HDL Cholesterol >55 mg/dL 65 VLDL Cholesterol 6 - 40 mg/dL 32 LDL Cholesterol 60 - 129 mg/dL 69 Fasting Time FASTING TC:HDL Ratio 1.00 - 5.00 2.55 LDL:HDL Ratio 0.50 - 3.55 1.06 Non HDL Cholesterol 90 - 159 mg/dL 101 Period 24 24 Urine Volume 24 hour [id number] Collection Start Date 714 714 Collection Start Time 1001 1001 Collection End Date 715 715 Collection End Time 1001 1001 Vitamin D 1,25 Dihydroxy D2 14.6 Vitamin D 1,25 Dihydroxy D3 123.0 Vit D1,25 Dihydroxy 15.0 - 60.0 pg/mL 137.6 (H) Creatinine 0.70 - 1.40 mg/dL 0.69 (L) eGFR- >60 eGFR-All Other Races >60 Calcium, 24 Hr Urine 100 - 300 mg/24 hr 107.1 PTH, Intact 15 - 65 pg/mL 95 (H) Phosphorus 2.5 - 4.5 mg/dL 3.9 Vitamin D 25 Hydroxy 31.0 - 80.0 ng/mL 40.6 Creatinine 24 hr Ur 0.8 - 1.8 g/24 hr 1.022 Component Latest Ref Rng 06/01/2014 07/20/2014 09/20/2014 WBC 3.70 - 11.00 k/uL 4.43 RBC 3.90 - 5.20 m/uL 4.41 Hemoglobin 11.5 - 15.5 g/dL 13.7 Hematocrit 36.0 - 46.0 % 42.9 MCV 80.0 - 100.0 fL 97.3 MCH 26.0 - 34.0 pG 31.1 MCHC 30.5 - 36.0 g/dL 31.9 RDW-CV 11.5 - 15.0 % 13.1 Platelet Count 150 - 400 k/uL 217 MPV 9.0 - 12.7 fL 10.7 Neut% 51.9 Abs Neut (ANC) 1.45 - 7.50 k/uL 2.30 Lymph% 41.5 Abs Lymph 1.00 - 4.00 k/uL 1.84 Rogers% 4.5 Abs Rogers 0.00 - 0.86 k/uL 0.20 Eosin% 1.4 Abs Eosin 0.00 - 0.45 k/uL 0.06 Baso% 0.7 Abs Baso 0.00 - 0.10 k/uL 0.03 Diff Type Auto Diff Protein, Total 6.0 - 8.4 g/dL 6.0 Albumin 3.5 - 5.0 g/dL 3.9 Calcium 8.5 - 10.5 mg/dL 9.1 8.7 Bilirubin, Total 0.0 - 1.5 mg/dL 0.6 Alkaline Phosphatase 40 - 150 U/L 76 AST 7 - 40 U/L 21 Glucose 65 - 100 mg/dL 81 BUN 8 - 25 mg/dL 12 Creatinine 0.70 - 1.40 mg/dL 0.71 Sodium 132 - 148 mmol/L 144 Potassium 3.5 - 5.0 mmol/L 4.1 Chloride 98 - 110 mmol/L 107 CO2 23 - 32 mmol/L 29 Anion Gap 0 - 15 mmol/L 8 ALT 0 - 45 U/L 12 eGFR- >60 eGFR-All Other Races >60 Vitamin D 1,25 Dihydroxy D2 6.0 Vitamin D 1,25 Dihydroxy D3 58.8 Vit D1,25 Dihydroxy 15.0 - 60.0 pg/mL 64.8 (H) TSH 0.400 - 5.500 uU/mL 0.875 0.881 Free T4 0.7 - 1.8 ng/dL 1.3 PTH, Intact 15 - 65 pg/mL 71 (H) Phosphorus 2.5 - 4.5 mg/dL 2.8 Vitamin D 25 Hydroxy 31.0 - 80.0 ng/mL 43.0 Cross-Link N-telopeptide 14.4 - 75.0 nM/mM Creat 121.6 (H) Magnesium 1.7 - 2.6 mg/dL 2.3 Creatinine (mg/dL) Date Date Value Range Status 03/14/2014 0.75 0.70 - 1.40 mg/dL Final Vitamin D 25 Hydroxy (ng/mL) Date Date Value Range Status 03/14/2014 69.9 31.0 - 80.0 ng/mL Final TSH (uU/mL) Date Date Value Range Status 12/13/2013 1.990 0.400 - 5.500 uU/mL Final IMAGING: Bone density was done. DATE OF EXAM: Mar 22 2014 8:47AM [id number] - BD AP SPINE/HIP - LEFT / PROCEDURE REASON: Disorder of bone and cartilage, unspecified ------ Physician Interpretation -------- RESULT: PROCEDURE: BD AP SPINE/HIP INDICATION: Disorder of bone and cartilage, unspecified TECHNIQUE: Low dose AP spine and hip images COMPARISON: 03/19/2010 LUMBAR SPINE: The bone mineral density from L1 through L4 is 0.747 grams per square centimeter which yields a T-score of -2.7. This represents 8.5% worsening. LEFT HIP: The bone mineral density of the total region of the hip is 0.709 grams per square centimeter which yields a T-score of -1.9. This represents 24.1% worsening. LEFT FEMORAL NECK: The bone mineral density of the femoral neck is 0.579 grams per square centimeter which yields a T-score of -2.4. This is significantly worse. IMPRESSION: Osteoporosis in the lumbar spine and severe osteopenia in the left femoral neck, worse in both regions compared to the prior study. CLINICIAN'S INDEPENDENT IMAGE INTERPRETATION: N.B.: Images pulled in the PACS and I independently reviewed the DEXA image from Mar 22, 2014. IMPRESSION/RECOMMENDATIONS: Ms. Romo is a 67 year old woman came for follow up visit regarding low bone mass and few other concerns as below. (M81.0) Age-related osteoporosis without current pathological fracture (primary encounter diagnosis) Comment: pathophysiology AND treatment options discussed. On reclast doing well. Monitor BMD, and NTX. Plan: CBC + DIFF, CROSS-LINK N-TELOPEP, DXA-AXIAL SKELETON (E03.9) Acquired hypothyroidism Comment: pathophysiology AND treatment options discussed. check level AND Rx as needed. Plan: CBC + DIFF, TSH BLD, T4 FREE/FREE THYROX (E55.9) Vitamin D deficiency Comment: check level AND Rx as needed. Plan: CBC + DIFF, CROSS-LINK N-TELOPEP, DXA-AXIAL SKELETON (Z98.84) Status post bariatric surgery Comment: pathophysiology AND treatment options discussed. Plan: CBC + DIFF, VITAMIN D 25 HYDROXY, VITAMIN B12 BLOOD, VITAMIN B1/THIAMINE, WHOLE BLD, VITAMIN B6/PYRIDOXIN, IRON + TIBC (R53.83) Lack of energy Comment: etiology multifactorial. Monitor levels. Plan: CBC + DIFF, VITAMIN D 25 HYDROXY, VITAMIN B12 BLOOD, VITAMIN B1/THIAMINE, WHOLE BLD (E78.2) Mixed hyperlipidemia Comment: pathophysiology AND treatment options discussed. Not on statin. Plan: Diet, exercise and food supplement discussed. (G47.33) Obstructive Sleep apnea - AHI 48 Comment: pathophysiology AND treatment options discussed. Plan: optimization of Rx suggested. (R59.0) Enlarged lymph node in neck Comment: obtain neck US. Plan: US HEAD/NECK SOFT TISSUE OTHER Selwyn Allred MD October 06, 2017 CNOV Observed: 10/06/2017 Status: COMPLETED Source: [place] 1:25 PM [facility] [place] REPOSITORY Office Visit (ENDMED) FRANNIE ROMO ([id number]) 1950 F [place] Date Time Provider Department 10/06/17 1:25 PM SELWYN ALLRED During your visit today, we recorded the following information about you: Pulse Blood pressure Weight Height 67/minute 88/55 51 kg 1.549 m Selwyn Allred MD 11/06/2017 10:47 PM Signed Last Visit: June 03, 2016 Reason for consultation: Evaluation of low bone density HISTORY OF PRESENT ILLNESS; Ms. Romo is a 67 year old woman came for follow up visit regading low bone mass. This was detected in had total hysterectomy in her 30s. Took HRT in the form of compounding cream til 2004, then [place] and stopped taking. Took Fosamax and Boniva a total of 4 yrs in . At the beginning she was found to lose her fariba so underwent DEXA scan showed osteopenia at the beginning. Recently, she had a repeat DEXA scan showed osteoporosis and due her h/o gastric by pass surgery her her PCP has refereed her to us for expert opinion in this regard and possible further Rx. Has h/o constant pain in her torso, from neck to tail bone and getting sterid injections in the spine, also floar patches. Has h/o stomach ulcer in the past before gastric by pass surgery and also she has h/o GERD. Got first Reclast infusion in May 2014. Taking new meds for psoriatic arthritis. S/p shock wave Rx for kidney stone and passed the stone. May 16, 2015: Feeling better, no more kidney stone, planning to get next Reclast infusion in May 2015, new labs are not done. January 08, 2016: as per pt she got some rashes next day after the last reclast injection in May 2015, the rash was a patch on her upper left chest erythematous and itching, used hydrocortisone cream didn't work so, she used another cream. Which took about 3 months to resolve her rash, she didn't had any reaction last year so she is not sure this is from reclast or not? So I have given her option for prolia, but she doesn't want to take, June 03, 2016: got her reclast on Friday, so far no skin rash, no other complaints, no reaction, however, her NTX is still high, but lower than before. Takes sleeping pills to sleep, has severe JUVENAL and using C- PAP, followed by sleep medicine. February 03, 2017: received last Reclast IV infusion in May 2016, so next dose will be in May 2017, feeling more tired than before, taking Ambien to get sleep, 4-6 hrs, doesn't get sound sleep. Didn't get any reaction to the IV infusion this time. October 06, 2017: got reclast IV in May 2017, doing well bone varela but has pain spinal stenosis, OA, height is stable, no fracture recently, no more headaches as she changed her pain meds. OP RISK FACTORS: October 06, 2017 Height: loss: Yes: 2 1/2 inches lost Weight <127 lbs: Yes : 114 lbs. Calcuim Intake: - Childhood: low - Young adulthood: low - Current dose: Taken in pill form: none recently for last 3 months Vitamin D Intake: not taking Menstrual history: has h/o total hysterectomy @ her 30s Menopause at age: 32 HRT: No, Yes for 4 years Current HRT: No history: No obstetric history on file. Fall history: Yes Fracture history: None Family history of hip or spine fx: - mother: No - grandmother: No - sister:Yes, wrist - other:none Family history of breast cancer: Yes. Relationship Aunt and Grandmother MEDICATION RISK FACTORS: Yes - prednisone or systemic steroids, anti-convulsants, and proton pump inhibitor, Caffeine: 1 c/day Smoking History: Never smoked Alcohol Consumptions: None Exercise: no regular exercise program Sodas: 12 Oz/day Overall, the patient has no acute complaints at this time. PAST MEDICAL HISTORY Diagnosis Date - Abdominal pain, unspecified site 02/28/2008 Reportedly had sigmoid resetion for adhesions about age 37: mutiple surgeries for adhesions, endometriosis, etc Camelia, LUIS (no comment on ovaries), cliff in sigmoid area by CT in 04-06 [facility] (Colorectal surgery) 12-05: prob small midline, incis hernia, did not rec repeat EGD/Colon/Surg-more adhesions WBC 5.8 K, HCT 43% in 01-04 Int hems ligated in 01-04 per [facility] - Abnormal glucose tolerance test 01/16/2012 - Abnormality of gait 05/01/2011 - Acute gastritis without mention of hemorrhage 11/21/2009 - Benign paroxysmal positional vertigo 06/10/2011 - Calculus of kidney - Cancer ([facility]) - Cervicalgia - Colon polyp, hyperplastic May 2006 - Depression - Depressive disorder, not elsewhere classified - Disorder of bone and cartilage, unspecified - Disorders of bursae and tendons in shoulder region, unspecified 02/28/2008 Arthroscopic R rotator cuff and biceps tendon repair 05-08-[address] Karthik Bella at [facility] - Dysphagia prior esophageal dilations twice - Dysphagia - Dysphagia, unspecified(787.20) - Epilepsy ([facility]) 02/12/2012 - Esophageal reflux - Esophagitis, unspecified - Examination of participant in clinical trial 03/01/2010 IRB: Study Title: Pelvic floor Disorders in Bariatric Surgery Patients Visit: Baseline PI: Patricia Patel MD Supervisor Finishing Room/Pager:Mayra Mar RN # [id number] Patient seen for PFD research study (IRB ). Patient agreed to participate in the QOL survey portion of the trial. Patient completed baseline survey. SIG:Mayra Mar RN - Grief 11/20/2011 - Gum symptoms - History of bladder cancer - Insomnia - Malignant neoplasm of bladder, part unspecified 02/15/2008 Biopsy 11-04: non-invasive, low grade papillary carcinoma Cystosocpy 11-[address] David López in [place]: no tumors, stones or foreign bodies Urology rec Cystoscopy in 03-07 and then q 6 mo for 3 years then yearly Urology rec antibiotics in 08-06 for chronic cystitis after voided urine for cytology: may treat for 3-6 months - Microscopic hematuria 02/21/2010 - Nasal congestion 08/18/2013 - Nasal obstruction 08/31/2014 - Obesity, unspecified 11-07-09 stated BMI 38 ht: 61 wt: 201 lbs - Obstructive sleep apnea [facility] - Other and unspecified disc disorder of thoracic region - Other and unspecified hyperlipidemia - Other pain disorders related to psychological factors 05/15/2011 - Pain in limb 06/09/2008 Pain reportedly started after a fall in the shower in 2007 Junior 05-09: rec Neurontin Baller 06-06: pain in distribution of deep peroneal nerve, change to Lyrica and sponge MLA with met and RLD Referred to [facility] in 07-07 [facility] to manage pain meds as of 11-06 - Persistent disorder of initiating or maintaining sleep - Personal history of malignant neoplasm of bladder 08/29/2009 - 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 - EGD W/O BRSH SPECIMEN W/BX 03/08/08 - EGD W/O OR W/BRUSH/WASH 11/21/2009 EGD - EGD W/O OR W/BRUSH/WASH 12/01/2013 EGD - EGD W/O OR W/BRUSH/WASH 03/28/15 EGD out pt [facility] - EGD W/O OR W/BRUSH/WASH 08/19/2017 EGD - KNEE SCOPE,DIAGNOSTIC Arthroscopy, knee right - PAST SURGICAL HISTORY OF adhesions, partial sigmoid resection, bladder lift - PAST SURGICAL HISTORY OF 2005 left Hammertoe correction right 2nd and 3rd toes - PAST SURGICAL HISTORY OF 1992 Left shoulder surgery - PAST SURGICAL HISTORY OF 09/07 left shoulder - PAST SURGICAL HISTORY OF 03-09-10 Bariatric, with hernia repair. - PAST SURGICAL HISTORY OF 1983 oophrectomy - RECONSTRUCT PROX HUMERAL IMPLANT 2006 Arthroplasty, shoulder right - REMOVAL GALLBLADDER 1980 Cholecystectomy - TOTAL ABDOM HYSTERECTOMY 1982 Hysterectomy, LUIS FAMILY HISTORY Problem Relation Age of Onset - Stroke Mother - Heart Mother - Hypertension Mother - Diabetes Mother - GI Mother colitis - Alzheimer's Disease Father - Heart Father Bypass - Breast Cancer Paternal Aunt - Breast Cancer Paternal Grandmother - GI Sister colitis Social History Substance Use Topics - Smoking status: Never Smoker - Smokeless tobacco: Never Used - Alcohol use No Family and social history reviewed and updated in the system. Social History Substance Use Topics - Smoking status: Never Smoker - Smokeless tobacco: Never Used - Alcohol use No SOCIAL HISTORY Marital Status: to Seng with 2 children Tobacco Use: Never Alcohol Use: No Drug Use: No Sexual Activity: Not on file Current Outpatient Prescriptions: lamoTRIgine (LAMICTAL) 100 mg tablet Take 1 tablet by mouth twice daily. Disp: 60 tablet Rfl: 5 Zolpidem (AMBIEN CR) 12.5 mg CR tablet Take 1 tablet by mouth at bedtime as needed for Sedation (generic acceptable) for up to 90 days. Disp: 90 tablet Rfl: 0 traZODone (DESYREL) 100 mg tablet Take 3 tablets by mouth daily at bedtime. Disp: 270 tablet Rfl: 3 ARIPiprazole (ABILIFY) 5 mg tablet Take 2 tablets by mouth once daily. Disp: 180 tablet Rfl: 3 zoledronic acid (RECLAST) 5 mg/100 mL pgbk PREMIX piggyback Inject 100 mL intravenously every year. Disp: 100 mL Rfl: 0 cholecalciferol, Vitamin D3, (VITAMIN D3) 50,000 unit cap capsule Take 1 capsule by mouth once each week. Disp: 12 capsule Rfl: 4 levothyroxine (SYNTHROID) 50 mcg tablet Take one tablet by mouth once daily, and 1/2 tablet on Sundays. Disp: 90 tablet Rfl: 3 CPAP Mask (per patient preference) optional chin strap (if indicated), filters, tubing / heated tubing, heated humidity and lifetime supplies. Dx. JUVENAL G47.33 327.23 Disp: 1 Device Rfl: 0 CPAP AutoSV EPAP min= 12 cmH2O, PS min-max = [id number], Max pressure = 25 cmH2O, Rate =Auto, lifetime supplies, Dx: G47.33, G47.37 Disp: 1 Device Rfl: 0 diclofenac sodium (VOLTAREN) 1 % topical gel Apply 2 g to affected area four times daily. Disp: 1 Tube Rfl: 1 APREMILAST (OTEZLA ORAL) Take 30 mg by mouth twice daily. Disp: Rfl: DOCUSATE CALCIUM (STOOL SOFTENER ORAL) Take 1 tablet by mouth twice daily. Disp: Rfl: oxybutynin XL (DITROPAN XL) 10 mg 24 hr tablet Take 10 mg by mouth once daily. Disp: Rfl: ASCORBIC ACID (VITAMIN C ORAL) Take 1 tablet by mouth once daily. Disp: Rfl: Biotin 10,000 mcg cap Take 15,000 mcg by mouth twice daily. Disp: Rfl: Coenzyme Q10 200 mg cap Take 200 mg by mouth twice daily. Disp: Rfl: pregabalin 150 mg capsule Take 1 capsule by mouth once daily. Dr Lance (Patient taking differently: Take 150 mg by mouth twice daily. Dr Lance) Disp: Rfl: MAGNESIUM OXIDE/MAG AA CHELATE (MAGNESIUM ORAL) Take 1 tablet by mouth twice daily. Disp: Rfl: LACTOBACILLUS RHAMNOSUS GG (PROBIOTIC ORAL) Take 1 capsule by mouth daily at bedtime. Disp: Rfl: Cyanocobalamin (VITAMIN B-12) 1,000 mcg ORAL Lozg Take 1,000 mcg by mouth once daily. Disp: Rfl: FE PS CMPLX/ASCORBIC ACID (IRON PS COMPLEX-ASCORBIC ACID ORAL) Take 1 tablet by mouth daily at bedtime. Disp: Rfl: LIDOCAINE 5 % (700 MG/PATCH) ADHESIVE PATCH Apply one patch to each hip daily. Remove patch after 12 hours. as needed Disp: 180 Rfl: 1 vitamin b complex(B COMPLEX TAB) Take one(1) tablet daily. Disp: Rfl: 0 docusate sodium (COLACE) 100 mg capsule Take 100 mg by mouth twice daily. Disp: Rfl: COMPOUNDED PRESCRIPTION Powerstep full length insert(M72.2) Plantar fasciitis of right foot (primary encounter diagnosis) (Patient not taking: Reported on 10/06/2017 ) Disp: 1 Device Rfl: 0 MULTIVITAMIN TAB daily Disp: Rfl: No current facility-administered medications for this visit. Allergies As of Date: 10/06/2017 Allergen Noted Reaction EFFEXOR [VENLAFAXINE HCL] 01/01/2010 Intolerance ANTICHOLINERGICS - QUATERNARY 01/04/2003 CODIENE [OTHER] 01/04/2003 COGENTIN [BENZTROPINE MESYLATE] 03/16/2008 DEX RACHELLE [OTHER] 03/16/2008 KEFLEX [CEPHALEXIN] 12/18/2011 Intolerance PHENOTHIAZINES 01/04/2003 ROXICET [OXYCODONE-ACETAMINOPHEN] 03/15/2010 Itching Fully Assessed 10/06/2017 REVIEW OF SYSTEMS: October 06, 2017 HEENT: better no more headaches, no more difficulty swallowing, due to esophageal spasm, s/p endoscopy and going for swallowing test, followed by GI Pulmonary: positive for severe JUVENAL on Bi-PAP CV: negative, has no symptoms but has h/o mitral valve proplase Renal: normal, no more kidney stone recently;y GI: no more nausea by a new pill for psoriatic arthritis since she started to take this pill at HS instead of morning VALVE INSERTER: surgical menopause -LMP: No LMP recorded. Patient has had a hysterectomy. -Hysterectomy: Yes, In her 30s -Ovaries: BSO, age 30s -Breast Cancer: no Neurological: positive h/o Sz controlled on meds Vascular: negative Musculoskeletal: much better less positive arthritis all over, hands and spike is worse Endocrine: stable on meds for hypothyroid All other systems: non-contributory PHYSICAL EXAM: BP 88/55 Pulse 67 Ht 154.9 cm (5' 1) Wt 51 kg (112 lb 6.4 oz) SpO2 95% BMI 21.24 kg/m2 October 06, 2017 General: alert, in no acute distress, Skin: skin color, texture, turgor normal, no rashes or lesions. Head: normocephalic, no masses, lesions, tenderness or abnormalities. Eyes: Anicteric sclera. Pupils are equally round and reactive to light. Extraocular movements are intact. Oropharynx: Lips, mucosa, and tongue normal, teeth and gums normal, oropharynx normal Neck: Supple, no adenopathy; thyroid symmetric, normal size, no bruits Heart: RRR without murmur, gallop, or rubs. No ectopy Musculoskeletal: ? Visual inspection: Cervical: Kyphosis Thoracic: Kyphoscoliosis Lumbar: Kyphosis ? Palpation Spinous processes: L3 Muscle Bulk: Normal and symmetrical in the upper AND lower extremities. Muscle Tone: decreased ? Motor: 4/5 in all muscle groups ? Gait: Intact and symmetrical to touch all over, Vibration and position is intact DATA: Component Latest Ref Rng AND Units 09/30/2017 Protein, Total 6.3 - 8.0 g/dL 6.2 (L) Albumin 3.9 - 4.9 g/dL 4.2 Calcium 8.5 - 10.2 mg/dL 8.8 Bilirubin, Total 0.2 - 1.3 mg/dL 0.6 Alkaline Phosphatase 32 - 117 U/L 108 AST 13 - 35 U/L 31 Glucose 74 - 99 mg/dL 79 BUN 7 - 21 mg/dL 9 Creatinine 0.58 - 0.96 mg/dL 0.70 Sodium 136 - 144 mmol/L 144 Potassium 3.7 - 5.1 mmol/L 4.3 Chloride 97 - 105 mmol/L 103 CO2 22 - 30 mmol/L 31 (H) Anion Gap 9 - 18 mmol/L 10 ALT 7 - 38 U/L 38 eGFR- >60 eGFR-All Other Races . >60 WBC 3.70 - 11.00 k/uL 6.49 RBC 3.90 - 5.20 m/uL 4.55 Hemoglobin 11.5 - 15.5 g/dL 14.3 Hematocrit 36.0 - 46.0 % 44.3 MCV 80.0 - 100.0 fL 97.4 MCH 26.0 - 34.0 pG 31.4 MCHC 30.5 - 36.0 g/dL 32.3 RDW-CV 11.5 - 15.0 % 12.7 Platelet Count 150 - 400 k/uL 316 MPV 9.0 - 12.7 fL 9.9 Absolute nRBC <0.01 k/uL <0.01 Hemoglobin A1C 4.3 - 5.6 % 5.2 Estimated Average Glucose mg/dL 103 TSH 0.400 - 5.500 uU/mL 1.390 Free T3 2.3 - 4.1 pg/mL 2.8 Free T4 0.9 - 1.7 ng/dL 1.2 Component Latest Ref Rng AND Units 09/02/2016 10/11/2016 10/11/2016 01/22/2017 12:24 PM 12:24 PM WBC 3.70 - 11.00 k/uL 5.52 5.04 RBC 3.90 - 5.20 m/uL 4.41 4.46 Hemoglobin 11.5 - 15.5 g/dL 14.0 13.9 Hematocrit 36.0 - 46.0 % 43.4 44.0 MCV 80.0 - 100.0 fL 98.4 98.7 MCH 26.0 - 34.0 pG 31.7 31.2 MCHC 30.5 - 36.0 g/dL 32.3 31.6 RDW-CV 11.5 - 15.0 % 12.5 12.4 Platelet Count 150 - 400 k/uL 268 227 MPV 9.0 - 12.7 fL 10.9 10.9 Neut% % 47.8 50.9 Abs Neut (ANC) 1.45 - 7.50 k/uL 2.64 2.55 Lymph% % 42.4 40.5 Abs Lymph 1.00 - 4.00 k/uL 2.34 2.04 Rogers% % 6.9 6.2 Abs Rogers <0.87 k/uL 0.38 0.31 Eosin% % 2.0 1.6 Abs Eosin <0.46 k/uL 0.11 0.08 Baso% % 0.9 0.8 Abs Baso <0.11 k/uL 0.05 0.04 Nucleated Reds 0 /100 WBC 0.0 0.0 Absolute nRBC <0.01 k/uL 0.00 <0.01 Diff Type Auto Diff Auto Diff Protein, Total 6.3 - 8.0 g/dL 6.2 (L) Albumin 3.9 - 4.9 g/dL 4.1 Calcium 8.5 - 10.2 mg/dL 8.8 8.9 Bilirubin, Total 0.2 - 1.3 mg/dL 0.7 Alkaline Phosphatase 32 - 117 U/L 90 AST 13 - 35 U/L 26 Glucose 74 - 99 mg/dL 88 86 BUN 7 - 21 mg/dL 17 17 Creatinine 0.58 - 0.96 mg/dL 0.73 0.72 Sodium 136 - 144 mmol/L 145 (H) 144 Potassium 3.7 - 5.1 mmol/L 4.1 4.3 Chloride 97 - 105 mmol/L 106 (H) 105 CO2 22 - 30 mmol/L 26 25 Anion Gap 9 - 18 mmol/L 13 14 ALT 7 - 38 U/L 21 eGFR- >60 >60 eGFR-All Other Races . >60 >60 Cross-Link N-telopeptide 14.4 - 75.0 nM/mM Creat 68.7 TSH 0.400 - 5.500 uU/mL 0.959 Free T4 0.9 - 1.7 ng/dL 1.3 Hep C Antibody IA Negative Negative WSR 0 - 20 mm/hr 2 CRP <0.9 mg/dL <0.1 Component Latest Ref Rng AND Units 01/09/2016 05/29/2016 Cross-Link N-telopeptide 14.4 - 75.0 nM/mM Creat 98.3 (H) 79.9 (H) Component Latest Ref Rng 06/01/2014 05/18/2015 Cross-Link N-telopeptide 14.4 - 75.0 nM/mM Creat 121.6 (H) 67.2 Component Latest Ref Rng AND Units 01/09/2016 04/16/2016 04/16/2016 05/29/2016 11:54 AM 12:00 PM WBC 3.70 - 11.00 k/uL 4.89 RBC 3.90 - 5.20 m/uL 4.27 Hemoglobin 11.5 - 15.5 g/dL 13.2 Hematocrit 36.0 - 46.0 % 41.0 MCV 80.0 - 100.0 fL 96.0 MCH 26.0 - 34.0 pG 30.9 MCHC 30.5 - 36.0 g/dL 32.2 RDW-CV 11.5 - 15.0 % 13.2 Platelet Count 150 - 400 k/uL 230 MPV 9.0 - 12.7 fL 10.0 Neut% % 36.4 Abs Neut (ANC) 1.45 - 7.50 k/uL 1.78 Lymph% % 53.4 Abs Lymph 1.00 - 4.00 k/uL 2.61 Rogers% % 5.5 Abs Rogers 0.00 - 0.86 k/uL 0.27 Eosin% % 4.1 Abs Eosin 0.00 - 0.45 k/uL 0.20 Baso% % 0.6 Abs Baso 0.00 - 0.10 k/uL 0.03 Diff Type Auto Diff Protein, Total 6.3 - 8.0 g/dL 6.2 (L) 6.1 (L) Albumin 3.9 - 4.9 g/dL 4.1 4.1 Calcium 8.6 - 10.0 mg/dL 8.3 (L) 8.9 Bilirubin, Total 0.2 - 1.3 mg/dL 0.7 0.6 Alkaline Phosphatase 32 - 117 U/L 113 106 AST 13 - 35 U/L 47 (H) 50 (H) Glucose 74 - 99 mg/dL 86 78 BUN 7 - 21 mg/dL 13 13 Creatinine 0.58 - 0.96 mg/dL 0.76 0.78 Sodium 136 - 144 mmol/L 144 139 Potassium 3.7 - 5.1 mmol/L 3.7 3.7 Chloride 97 - 105 mmol/L 104 100 CO2 22 - 30 mmol/L 28 27 Anion Gap 9 - 18 mmol/L 12 12 ALT 7 - 38 U/L 53 (H) 52 (H) eGFR- >60 >60 eGFR-All Other Races . >60 >60 Triglyceride 30 - 149 mg/dL 89 Cholesterol 100 - 199 mg/dL 171 HDL Cholesterol >55 mg/dL 83 VLDL Cholesterol 6 - 40 mg/dL 18 LDL Cholesterol 60 - 129 mg/dL 70 Fasting Time hrs 13 TC:HDL Ratio 1.00 - 5.00 2.06 LDL:HDL Ratio 0.50 - 3.55 0.84 Non HDL Cholesterol 90 - 159 mg/dL 88 (L) Cross-Link N-telopeptide 14.4 - 75.0 nM/mM Creat 98.3 (H) 79.9 (H) Vitamin D 25 Hydroxy 31.0 - 80.0 ng/mL 51.1 36.7 TSH 0.400 - 5.500 uU/mL 0.464 0.734 Free T4 0.9 - 1.7 ng/dL 1.2 1.3 ---Final Report---- DATE OF EXAM: Mar 22 2014 8:47AM [id number] - BD AP SPINE/HIP - LEFT / PROCEDURE REASON: Disorder of bone and cartilage, unspecified ---- Physician Interpretation ----- RESULT: PROCEDURE: BD AP SPINE/HIP INDICATION: Disorder of bone and cartilage, unspecified TECHNIQUE: Low dose AP spine and hip images COMPARISON: 03/19/2010 LUMBAR SPINE: The bone mineral density from L1 through L4 is 0.747 grams per square centimeter which yields a T-score of -2.7. This represents 8.5% worsening. LEFT HIP: The bone mineral density of the total region of the hip is 0.709 grams per square centimeter which yields a T-score of -1.9. This represents 24.1% worsening. LEFT FEMORAL NECK: The bone mineral density of the femoral neck is 0.579 grams per square centimeter which yields a T-score of -2.4. This is significantly worse. IMPRESSION: Osteoporosis in the lumbar spine and severe osteopenia in the left femoral neck, worse in both regions compared to the prior study. Component Latest Ref Rng 10/10/2014 10/12/2014 10/12/2014 03/07/2015 04/11/2015 10:01 AM 10:01 AM Triglyceride 30 - 149 mg/dL 159 (H) Cholesterol 100 - 199 mg/dL 166 HDL Cholesterol >55 mg/dL 65 VLDL Cholesterol 6 - 40 mg/dL 32 LDL Cholesterol 60 - 129 mg/dL 69 Fasting Time FASTING TC:HDL Ratio 1.00 - 5.00 2.55 LDL:HDL Ratio 0.50 - 3.55 1.06 Non HDL Cholesterol 90 - 159 mg/dL 101 Period 24 24 Urine Volume 24 hour 1177 1177 Collection Start Date 714 714 Collection Start Time 1001 1001 Collection End Date 715 715 Collection End Time 1001 1001 Vitamin D 1,25 Dihydroxy D2 14.6 Vitamin D 1,25 Dihydroxy D3 123.0 Vit D1,25 Dihydroxy 15.0 - 60.0 pg/mL 137.6 (H) Creatinine 0.70 - 1.40 mg/dL 0.69 (L) eGFR- >60 eGFR-All Other Races >60 Calcium, 24 Hr Urine 100 - 300 mg/24 hr 107.1 PTH, Intact 15 - 65 pg/mL 95 (H) Phosphorus 2.5 - 4.5 mg/dL 3.9 Vitamin D 25 Hydroxy 31.0 - 80.0 ng/mL 40.6 Creatinine 24 hr Ur 0.8 - 1.8 g/24 hr 1.022 Component Latest Ref Rng 06/01/2014 07/20/2014 09/20/2014 WBC 3.70 - 11.00 k/uL 4.43 RBC 3.90 - 5.20 m/uL 4.41 Hemoglobin 11.5 - 15.5 g/dL 13.7 Hematocrit 36.0 - 46.0 % 42.9 MCV 80.0 - 100.0 fL 97.3 MCH 26.0 - 34.0 pG 31.1 MCHC 30.5 - 36.0 g/dL 31.9 RDW-CV 11.5 - 15.0 % 13.1 Platelet Count 150 - 400 k/uL 217 MPV 9.0 - 12.7 fL 10.7 Neut% 51.9 Abs Neut (ANC) 1.45 - 7.50 k/uL 2.30 Lymph% 41.5 Abs Lymph 1.00 - 4.00 k/uL 1.84 Rogers% 4.5 Abs Rogers 0.00 - 0.86 k/uL 0.20 Eosin% 1.4 Abs Eosin 0.00 - 0.45 k/uL 0.06 Baso% 0.7 Abs Baso 0.00 - 0.10 k/uL 0.03 Diff Type Auto Diff Protein, Total 6.0 - 8.4 g/dL 6.0 Albumin 3.5 - 5.0 g/dL 3.9 Calcium 8.5 - 10.5 mg/dL 9.1 8.7 Bilirubin, Total 0.0 - 1.5 mg/dL 0.6 Alkaline Phosphatase 40 - 150 U/L 76 AST 7 - 40 U/L 21 Glucose 65 - 100 mg/dL 81 BUN 8 - 25 mg/dL 12 Creatinine 0.70 - 1.40 mg/dL 0.71 Sodium 132 - 148 mmol/L 144 Potassium 3.5 - 5.0 mmol/L 4.1 Chloride 98 - 110 mmol/L 107 CO2 23 - 32 mmol/L 29 Anion Gap 0 - 15 mmol/L 8 ALT 0 - 45 U/L 12 eGFR- >60 eGFR-All Other Races >60 Vitamin D 1,25 Dihydroxy D2 6.0 Vitamin D 1,25 Dihydroxy D3 58.8 Vit D1,25 Dihydroxy 15.0 - 60.0 pg/mL 64.8 (H) TSH 0.400 - 5.500 uU/mL 0.875 0.881 Free T4 0.7 - 1.8 ng/dL 1.3 PTH, Intact 15 - 65 pg/mL 71 (H) Phosphorus 2.5 - 4.5 mg/dL 2.8 Vitamin D 25 Hydroxy 31.0 - 80.0 ng/mL 43.0 Cross-Link N-telopeptide 14.4 - 75.0 nM/mM Creat 121.6 (H) Magnesium 1.7 - 2.6 mg/dL 2.3 Creatinine (mg/dL) Date Date Value Range Status 03/14/2014 0.75 0.70 - 1.40 mg/dL Final Vitamin D 25 Hydroxy (ng/mL) Date Date Value Range Status 03/14/2014 69.9 31.0 - 80.0 ng/mL Final TSH (uU/mL) Date Date Value Range Status 12/13/2013 1.990 0.400 - 5.500 uU/mL Final IMAGING: Bone density was done. DATE OF EXAM: Mar 22 2014 8:47AM [id number] - BD AP SPINE/HIP - LEFT / PROCEDURE REASON: Disorder of bone and cartilage, unspecified ------ Physician Interpretation -------- RESULT: PROCEDURE: BD AP SPINE/HIP INDICATION: Disorder of bone and cartilage, unspecified TECHNIQUE: Low dose AP spine and hip images COMPARISON: 03/19/2010 LUMBAR SPINE: The bone mineral density from L1 through L4 is 0.747 grams per square centimeter which yields a T-score of -2.7. This represents 8.5% worsening. LEFT HIP: The bone mineral density of the total region of the hip is 0.709 grams per square centimeter which yields a T-score of -1.9. This represents 24.1% worsening. LEFT FEMORAL NECK: The bone mineral density of the femoral neck is 0.579 grams per square centimeter which yields a T-score of -2.4. This is significantly worse. IMPRESSION: Osteoporosis in the lumbar spine and severe osteopenia in the left femoral neck, worse in both regions compared to the prior study. CLINICIAN'S INDEPENDENT IMAGE INTERPRETATION: N.B.: Images pulled in the PACS and I independently reviewed the DEXA image from Mar 22, 2014. IMPRESSION/RECOMMENDATIONS: Ms. Romo is a 67 year old woman came for follow up visit regarding low bone mass and few other concerns as below. (M81.0) Age-related osteoporosis without current pathological fracture (primary encounter diagnosis) Comment: pathophysiology AND treatment options discussed. On reclast doing well. Monitor BMD, and NTX. Plan: CBC + DIFF, CROSS-LINK N-TELOPEP, DXA-AXIAL SKELETON (E03.9) Acquired hypothyroidism Comment: pathophysiology AND treatment options discussed. check level AND Rx as needed. Plan: CBC + DIFF, TSH BLD, T4 FREE/FREE THYROX (E55.9) Vitamin D deficiency Comment: check level AND Rx as needed. Plan: CBC + DIFF, CROSS-LINK N-TELOPEP, DXA-AXIAL SKELETON (Z98.84) Status post bariatric surgery Comment: pathophysiology AND treatment options discussed. Plan: CBC + DIFF, VITAMIN D 25 HYDROXY, VITAMIN B12 BLOOD, VITAMIN B1/THIAMINE, WHOLE BLD, VITAMIN B6/PYRIDOXIN, IRON + TIBC (R53.83) Lack of energy Comment: etiology multifactorial. Monitor levels. Plan: CBC + DIFF, VITAMIN D 25 HYDROXY, VITAMIN B12 BLOOD, VITAMIN B1/THIAMINE, WHOLE BLD (E78.2) Mixed hyperlipidemia Comment: pathophysiology AND treatment options discussed. Not on statin. Plan: Diet, exercise and food supplement discussed. (G47.33) Obstructive Sleep apnea - AHI 48 Comment: pathophysiology AND treatment options discussed. Plan: optimization of Rx suggested. (R59.0) Enlarged lymph node in neck Comment: obtain neck US. Plan: US HEAD/NECK SOFT TISSUE OTHER Selwyn Allred MD October 06, 2017 Selwyn Allred MD 10/06/2017 2:16 PM Signed Take Vit D3: 2000 IU once daily Vit B12: 50 mcg once daily Vit B complex:1 cap once daily Referring Provider: SELF [200] Allergies As of Date: 10/06/2017 Noted Allergy Reaction EFFEXOR (VENLAFAXINE HCL) 01/01/2010 5 - Intolerance Comments: headaches ANTICHOLINERGICS - QUATERNARY 01/04/2003 Comments: amy [place] [Other] 01/04/2003 Comments: chest pain AMY (BENZTROPINE MESYLATE) 03/16/2008 Comments: Body went rigid dex rachelle [Other] 03/16/2008 Comments: Medrol dose pack: hallucinatios, diff walking KEFLEX (CEPHALEXIN) 12/18/2011 5 - Intolerance Comments: makes pt too drowsy PHENOTHIAZINES 01/04/2003 Comments: compazine-1 sided facial weakness (like stroke) ROXICET (OXYCODONE-ACETAMINOPHEN) 03/15/2010 9 - Itching Date Reviewed: 10/06/2017 Reviewed by: Mayra Blanco Ma - Fully Assessed Reason for Visit: osteoporosis [Other] Cmt: 8 month follow up Primary Visit Diagnosis:Osteoporosis of multiple sites [M81.0] Other Visit Diagnoses:Acquired hypothyroidism [E03.9] Mixed hyperlipidemia [E78.2] Vitamin D deficiency [E55.9] Status post bariatric surgery [Z98.84] Mild protein-calorie malnutrition (HCC) [E44.1] Order(s):CBC + DIFF [SQCBCDIF] Order #: [id number] FUTURE COMP METABOLIC PANEL [SQCMP] Order #: [id number] FUTURE IRON + TIBC [SQIRON] Order #: [id number] FUTURE VITAMIN D 25 HYDROXY [SQVITD] Order #: [id number] FUTURE VITAMIN B12 BLOOD [SQB12] Order #: [id number] FUTURE VITAMIN B6/PYRIDOXIN [SQVITB6] Order #: [id number] FUTURE VITAMIN B1/THIAMINE, WHOLE BLD [DFJ6KYM] Order #: [id number] FUTURE CROSS-LINK N-TELOPEP [SQUNTX2] Order #: [id number] FUTURE Prescriptions as of 10/06/2017 Sig: LAMOTRIGINE 100 MG TABLET Take 1 tablet by mouth twice * ZOLPIDEM ER 12.5 MG TABLET,EX* Take 1 tablet by mouth at bed* TRAZODONE 100 MG TABLET Take 3 tablets by mouth daily* ARIPIPRAZOLE 5 MG TABLET Take 2 tablets by mouth once * ZOLEDRONIC ACID 5 MG/100 ML I* Inject 100 mL intravenously e* CHOLECALCIFEROL (VITAMIN D3) * Take 1 capsule by mouth once * Patient not taking: Reported on 10/28/2017 LEVOTHYROXINE 50 MCG TABLET Take one tablet by mouth once* CPAP Mask (per patient preference)* CPAP AutoSV EPAP min= 12 cmH2O, PS* DICLOFENAC 1 % TOPICAL GEL Apply 2 g to affected area fo* OTEZLA ORAL Take 30 mg by mouth twice lulu* STOOL SOFTENER ORAL Take 1 tablet by mouth twice * OXYBUTYNIN CHLORIDE ER 10 MG * Take 10 mg by mouth once vashti* VITAMIN C ORAL Take 1 tablet by mouth once d* BIOTIN 10,000 MCG CAPSULE Take 15,000 mcg by mouth twic* COENZYME Q10 200 MG CAPSULE Take 200 mg by mouth twice da* PREGABALIN 150 MG CAPSULE Take 1 capsule by mouth once * Patient taking differently: Take 150 mg by mouth twice da* MAGNESIUM ORAL Take 1 tablet by mouth twice * PROBIOTIC ORAL Take 1 capsule by mouth daily* CYANOCOBALAMIN (VIT B-12) 1,0* Take 1,000 mcg by mouth once * IRON PS COMPLEX-ASCORBIC ACID* Take 1 tablet by mouth daily * LIDOCAINE 5 % TOPICAL PATCH Apply one patch to each hip d* B COMPLEX TABLET,EXTENDED REL* Take one(1) tablet daily. DOCUSATE SODIUM 100 MG CAPSULE Take 100 mg by mouth twice da* COMPOUNDED PRESCRIPTION Powerstep full length insert * Patient not taking: Reported on 10/06/2017 MULTIVITAMIN TABLET daily Medication notes this encounter CPAP >> Mayra Blanco Ma 10/06/2017 1:45 PM >> MAYRA BLANCO MA [facility] Oct 06, 2017 1:45 PM Is a Bi Pap CPAP >> Mayra Blanco Ma 10/06/2017 1:45 PM >> MAYRA BLANCO MA [facility] Oct 06, 2017 1:45 PM Is a Bi pap OXYBUTYNIN CHLORIDE ER 10 MG TABLET,EXTENDED RELEASE 24 HR >> Mayra Blanco Ma 10/06/2017 1:42 PM >> MAYRA BLANCO MA [facility] Oct 06, 2017 1:42 PM Twice a day VITAMIN C ORAL >> Mayra Blanco Ma 10/06/2017 1:43 PM >> MAYRA BLANCO MA [facility] Oct 06, 2017 1:43 PM Ran out not taking at this time COENZYME Q10 200 MG CAPSULE >> Mayra Blanco Ma 10/06/2017 1:44 PM >> MAYRA BLANCO MA [facility] Oct 06, 2017 1:44 PM Taking MULTIVITAMIN TABLET >> Mayra Blanco Ma 10/06/2017 1:45 PM >> MAYRA BLANCO MA [facility] Oct 06, 2017 1:45 PM Taking More... More... Problem List As Of Date 10/06/2017 Noted Resolved Obesity, unspecified [E66.9] INVALID FOR*09/18/2012 More... More... Depressive disorder, not elsewhere classified [*INVALID FOR*10/21/2012 More... Mixed hyperlipidemia [E78.2] INVALID FOR* More... BONE AND CARTILAGE DIS NOS [M89.9, M94.9] INVALID FOR* More... Hypothyroidism [E03.9] INVALID FOR* More... Unspecified sleep apnea [G47.30] INVALID FOR*06/20/2014 More... More... Radiculopathy, lumbar region [M54.16] INVALID FOR* More... More... DISC DIS NEC/NOS-THORAC [M51.9] INVALID FOR* More... CERVICALGIA [M54.2] INVALID FOR* More... More... More... Vitamin D deficiency [E55.9] INVALID FOR* More... More... Insomnia [G47.00] 04/13/2014 Chronic insomnia [F51.04] INVALID FOR*04/13/2014 Class: Chronic More... 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 Obstructive Sleep apnea - AHI 48 [G47.33] INVALID FOR* More... Osteoporosis, unspecified [M81.0] INVALID FOR*08/09/2014 Osteoporosis [M81.0] INVALID FOR* More... Central sleep apnea in conditions classified el*INVALID FOR* DDD (degenerative disc disease), cervical [M50.*INVALID FOR* DDD (degenerative disc disease), lumbar [M51.36]INVALID FOR* Chronic pain [G89.29] INVALID FOR* Memory deficits [R41.3] INVALID FOR* Onychomycosis [B35.1] INVALID FOR* More... Psoriatic arthritis (HCC) [L40.50] INVALID FOR* Rotator cuff arthropathy, left [M12.812] INVALID FOR* Cervical radiculopathy [M54.12] INVALID FOR* Chronic bilateral low back pain with bilateral *INVALID FOR* Epigastric abdominal pain [R10.13] INVALID FOR* More... History of gastric bypass [Z98.84] INVALID FOR* More... Central sleep apnea due to medical condition [G*INVALID FOR* Other instructions from your clinician: Take Vit D3: 2000 IU once daily Vit B12: 50 mcg once daily Vit B complex:1 cap once daily Disposition: Return in about 1 year (around 10/06/2018). Follow-up and Disposition History Recorded Encounter Status:Closed by SELWYN ALLRED MD on 11/06/17 ANES POST Observed: 10/02/2017 Status: COMPLETED Source: [place] 12:15 PM [facility] REPOSITORY HNO ID: [id number] Author: Ofelia Vanegas Service: Anesthesiology Author Type: Anesthesiologist Type: Anesthesia PostOp Filed: 10/02/2017 12:15 PM Note Text: [facility] POST ANESTHESIA NOTE PATIENT NAME: Frannie Romo Vitals: 10/02/17 1015 10/02/17 1030 10/02/17 1045 10/02/17 1100 BP: 107/58 108/59 104/55 103/54 Pulse: (!) 58 60 (!) 59 (!) 58 Resp: 16 16 16 16 Temp: TempSrc: SpO2: 100% 97% 96% 96% No apparent anesthetic complications. The patient is appropriately hydrated with stable respiratory and cardiovascular status. Patient has safe and adequate airway control. The patient has appropriate pain relief and no significant post operative nausea or vomiting. The patient has achieved baseline mental status. Further assessment by Anesthesia Service: None Other remarks: None SIGNATURE: Ofelia Vanegas MD DATE: October 02, 2017 TIME: 12:15 PM NURSING PROG Observed: 10/02/2017 Status: COMPLETED Source: [place] 10:29 AM [facility] REPOSITORY HNO ID: [id number] Author: Anjana WoodsonRn) LOU Patel Service: Nursing Author Type: Registered Nurse Type: Nursing Progress Note Filed: 10/02/2017 10:48 AM Note Text: Nursing Progress Note Patient Name: Frannie Romo Patient Location: Room/bed info not found 1029 Patients to bedside. 1045 Patient taking small sips of room temp water, swallowing without difficulty. This note was completed by: Anjana Patel RN PT ED Observed: 10/02/2017 Status: COMPLETED Source: [place] 9:12 AM [facility] REPOSITORY HNO ID: [id number] Author: Minog WoodsonRn) LOU Ricks Service: Nursing Author Type: Registered Nurse Type: Patient Education Filed: 10/02/2017 9:13 AM Note Text: PATIENT EDUCATION TOPIC: PROCEDURE / SURGERY: Pre-op Teaching: Logistics Protocols PATIENT NAME: Frannie Romo PATIENT LOCATION: Room/bed info not found READINESS TO LEARN COGNITIVE ABILITY: Alert and oriented MOTIVATION TO LEARN: Eager FAMILY SUPPORT: High - Very involved in pt care INSTRUCTION PROVIDED TO: Patient PATIENT LEARNS BEST BY: Individual Instruction FACTORS AFFECTING LEARNING: None PHYSICAL LIMITATIONS AFFECTING LEARNING: None LEARNING RESPONSE DIAGNOSIS: ADULT: egd PATIENT/FAMILY RESPONSE: Verbalizes understanding of: PRE-PROCEDURE INSTRUCTIONS-Correct action to take to follow pre-procedure instructions METHOD OF INSTRUCTION: Individual instruction FOLLOW-UP PLAN: Reinforce - Repeat previous content INSTRUCTIONAL AIDS USED: NA SUPPLEMENTAL MATERIAL PROVIDED TO PATIENT: None REFERRAL (RECOMMENDATION): None Electronically Signed By: Mingo Ricks RN ANES PREOP Observed: 10/02/2017 Status: COMPLETED Source: [place] 9:08 AM [facility] REPOSITORY HNO ID: [id number] Author: Ofelia Vanegas Service: Anesthesiology Author Type: Anesthesiologist Type: Anesthesia PreOp Filed: 10/02/2017 9:11 AM Note Text: [facility] ANESTHESIOLOG[facility] DAY OF SURGERY NOTE PATIENT NAME: Frannie Romo Procedure(s) (LRB): EGD (N/A) Surgeon(s): Ana Contreras Vitals: 10/02/17 0901 BP: 98/54 Pulse: (!) 55 Resp: 16 Temp: 36.8 ?C (98.2 ?F) TempSrc: Temporal Artery SpO2: 97% 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 Epilepsy ([facility]) Major Depression in Partial Remission ([facility]) Psychophysiological Insomnia Obstructive Sleep apnea - AHI 48 Osteoporosis Central Sleep Apnea in Conditions Classified Elsewhere(327.27) Ddd (Degenerative Disc Disease), Cervical Ddd (Degenerative Disc Disease), Lumbar Chronic Pain Memory Deficits Onychomycosis Psoriatic Arthritis ([facility]) Rotator Cuff Arthropathy, Left Cervical Radiculopathy Chronic Bilateral Low Back Pain With Bilateral Sciatica Epigastric Abdominal Pain History of Gastric Bypass Central Sleep Apnea Due to Medical Condition PAST MEDICAL HISTORY Diagnosis Date - Abdominal pain, unspecified site 02/28/2008 Reportedly had sigmoid resetion for adhesions about age 37: mutiple surgeries for adhesions, endometriosis, etc Camelia, LUIS (no comment on ovaries), cliff in sigmoid area by CT in 04-06 [facility] (Colorectal surgery) 12-05: prob small midline, incis hernia, did not rec repeat EGD/Colon/Surg-more adhesions WBC 5.8 K, HCT 43% in 01-04 Int hems ligated in 01-04 per [facility] - Abnormal glucose tolerance test 01/16/2012 - Abnormality of gait 05/01/2011 - Acute gastritis without mention of hemorrhage 11/21/2009 - Benign paroxysmal positional vertigo 06/10/2011 - Calculus of kidney - Cancer ([facility]) - Cervicalgia - Colon polyp, hyperplastic May 2006 - Depression - Depressive disorder, not elsewhere classified - Disorder of bone and cartilage, unspecified - Disorders of bursae and tendons in shoulder region, unspecified 02/28/2008 Arthroscopic R rotator cuff and biceps tendon repair 05-08-[address] Karthik Bella at [facility] - Dysphagia prior esophageal dilations twice - Dysphagia - Dysphagia, unspecified(787.20) - Epilepsy ([facility]) 02/12/2012 - Esophageal reflux - Esophagitis, unspecified - Examination of participant in clinical trial 03/01/2010 IRB: [id number] Study Title: Pelvic floor Disorders in Bariatric Surgery Patients Visit: Baseline PI: Patricia Patel MD Supervisor Finishing Room/Pager:Mayra Mar RN # [phone] Patient seen for PFD research study (IRB 06-184). Patient agreed to participate in the QOL survey portion of the trial. Patient completed baseline survey. SIG:Mayra Mar RN - Grief 11/20/2011 - Gum symptoms - History of bladder cancer - Insomnia - Malignant neoplasm of bladder, part unspecified 02/15/2008 Biopsy 11-04: non-invasive, low grade papillary carcinoma Cystosocpy 11-[address] David López in [place]: no tumors, stones or foreign bodies Urology rec Cystoscopy in 03-07 and then q 6 mo for 3 years then yearly Urology rec antibiotics in 08-06 for chronic cystitis after voided urine for cytology: may treat for 3-6 months - Microscopic hematuria 02/21/2010 - Nasal congestion 08/18/2013 - Nasal obstruction 08/31/2014 - Obesity, unspecified 11-07-09 stated BMI 38 ht: 61 wt: 201 lbs - Obstructive sleep apnea [facility] - Other and unspecified disc disorder of thoracic region - Other and unspecified hyperlipidemia - Other pain disorders related to psychological factors 05/15/2011 - Pain in limb 06/09/2008 Pain reportedly started after a fall in the shower in 2007 Junior 05-09: rec Neurontin Baller 06-06: pain in distribution of deep peroneal nerve, change to Lyrica and sponge MLA with met and RLD Referred to [facility] in 07-07 [facility]ali to manage pain meds as of 11-06 - Persistent disorder of initiating or maintaining sleep - Personal history of malignant neoplasm of bladder 08/29/2009 - 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 - EGD W/O BRSH SPECIMEN W/BX 03/08/08 - EGD W/O OR W/BRUSH/WASH 11/21/2009 EGD - EGD W/O OR W/BRUSH/WASH 12/01/2013 EGD - EGD W/O OR W/BRUSH/WASH 03/28/15 EGD out pt [facility] - EGD W/O OR W/BRUSH/WASH 08/19/2017 EGD - KNEE SCOPE,DIAGNOSTIC Arthroscopy, knee right - PAST SURGICAL HISTORY OF adhesions, partial sigmoid resection, bladder lift - PAST SURGICAL HISTORY OF 2005 left Hammertoe correction right 2nd and 3rd toes - PAST SURGICAL HISTORY OF 1992 Left shoulder surgery - PAST SURGICAL HISTORY OF 09/07 left shoulder - PAST SURGICAL HISTORY OF 03-09-10 Bariatric, with hernia repair. - PAST SURGICAL HISTORY OF 1983 oophrectomy - RECONSTRUCT PROX HUMERAL IMPLANT 2006 Arthroplasty, shoulder right - REMOVAL GALLBLADDER 1980 Cholecystectomy - TOTAL ABDOM HYSTERECTOMY 1982 Hysterectomy, LUIS FAMILY HISTORY Problem Relation Age of Onset - Stroke Mother - Heart Mother - Hypertension Mother - Diabetes Mother - GI Mother colitis - Alzheimer's Disease Father - Heart Father Bypass - Breast Cancer Paternal Aunt - Breast Cancer Paternal Grandmother - GI Sister colitis Social History: Social History Substance Use Topics - Smoking status: Never Smoker - Smokeless tobacco: Never Used - Alcohol use No Current Outpatient Prescriptions on File Prior to Encounter: docusate sodium (COLACE) 100 mg capsule Take 100 mg by mouth twice daily. lamoTRIgine (LAMICTAL) 100 mg tablet Take 1 tablet by mouth twice daily. Zolpidem (AMBIEN CR) 12.5 mg CR tablet Take 1 tablet by mouth at bedtime as needed for Sedation (generic acceptable) for up to 90 days. traZODone (DESYREL) 100 mg tablet Take 3 tablets by mouth daily at bedtime. ARIPiprazole (ABILIFY) 5 mg tablet Take 2 tablets by mouth once daily. levothyroxine (SYNTHROID) 50 mcg tablet Take one tablet by mouth once daily, and 1/2 tablet on Sundays. CPAP Mask (per patient preference) optional chin strap (if indicated), filters, tubing / heated tubing, heated humidity and lifetime supplies. Dx. JUVENAL G47.33 327.23 APREMILAST (OTEZLA ORAL) Take 30 mg by mouth twice daily. DOCUSATE CALCIUM (STOOL SOFTENER ORAL) Take 1 tablet by mouth twice daily. oxybutynin XL (DITROPAN XL) 10 mg 24 hr tablet Take 10 mg by mouth once daily. ASCORBIC ACID (VITAMIN C ORAL) Take 1 tablet by mouth once daily. Biotin 10,000 mcg cap Take 15,000 mcg by mouth twice daily. pregabalin 150 mg capsule Take 1 capsule by mouth once daily. Dr Lance (Patient taking differently: Take 150 mg by mouth twice daily. Dr Lance) MAGNESIUM OXIDE/MAG AA CHELATE (MAGNESIUM ORAL) Take 1 tablet by mouth twice daily. LACTOBACILLUS RHAMNOSUS GG (PROBIOTIC ORAL) Take 1 capsule by mouth daily at bedtime. FE PS CMPLX/ASCORBIC ACID (IRON PS COMPLEX-ASCORBIC ACID ORAL) Take 1 tablet by mouth daily at bedtime. vitamin b complex(B COMPLEX TAB) Take one(1) tablet daily. COMPOUNDED PRESCRIPTION Powerstep full length insert(M72.2) Plantar fasciitis of right foot (primary encounter diagnosis) (Patient not taking: Reported on 09/22/2017 ) zoledronic acid (RECLAST) 5 mg/100 mL pgbk PREMIX piggyback Inject 100 mL intravenously every year. cholecalciferol, Vitamin D3, (VITAMIN D3) 50,000 unit cap capsule Take 1 capsule by mouth once each week. (Patient not taking: Reported on 09/22/2017 ) CPAP AutoSV EPAP min= 12 cmH2O, PS min-max = [id number], Max pressure = 25 cmH2O, Rate =Auto, lifetime supplies, Dx: G47.33, G47.37 diclofenac sodium (VOLTAREN) 1 % topical gel Apply 2 g to affected area four times daily. Coenzyme Q10 200 mg cap Take 200 mg by mouth twice daily. Cyanocobalamin (VITAMIN B-12) 1,000 mcg ORAL Lozg Take 1,000 mcg by mouth once daily. LIDOCAINE 5 % (700 MG/PATCH) ADHESIVE PATCH Apply one patch to each hip daily. Remove patch after 12 hours. as needed MULTIVITAMIN TAB daily No current facility-administered medications on file prior to encounter. Current Outpatient Prescriptions: docusate sodium (COLACE) 100 mg capsule Take 100 mg by mouth twice daily. Disp: Rfl: lamoTRIgine (LAMICTAL) 100 mg tablet Take 1 tablet by mouth twice daily. Disp: 60 tablet Rfl: 5 Zolpidem (AMBIEN CR) 12.5 mg CR tablet Take 1 tablet by mouth at bedtime as needed for Sedation (generic acceptable) for up to 90 days. Disp: 90 tablet Rfl: 0 traZODone (DESYREL) 100 mg tablet Take 3 tablets by mouth daily at bedtime. Disp: 270 tablet Rfl: 3 ARIPiprazole (ABILIFY) 5 mg tablet Take 2 tablets by mouth once daily. Disp: 180 tablet Rfl: 3 levothyroxine (SYNTHROID) 50 mcg tablet Take one tablet by mouth once daily, and 1/2 tablet on Sundays. Disp: 90 tablet Rfl: 3 CPAP Mask (per patient preference) optional chin strap (if indicated), filters, tubing / heated tubing, heated humidity and lifetime supplies. Dx. JUVENAL G47.33 327.23 Disp: 1 Device Rfl: 0 APREMILAST (OTEZLA ORAL) Take 30 mg by mouth twice daily. Disp: Rfl: DOCUSATE CALCIUM (STOOL SOFTENER ORAL) Take 1 tablet by mouth twice daily. Disp: Rfl: oxybutynin XL (DITROPAN XL) 10 mg 24 hr tablet Take 10 mg by mouth once daily. Disp: Rfl: ASCORBIC ACID (VITAMIN C ORAL) Take 1 tablet by mouth once daily. Disp: Rfl: Biotin 10,000 mcg cap Take 15,000 mcg by mouth twice daily. Disp: Rfl: pregabalin 150 mg capsule Take 1 capsule by mouth once daily. Dr Lance (Patient taking differently: Take 150 mg by mouth twice daily. Dr Lance) Disp: Rfl: MAGNESIUM OXIDE/MAG AA CHELATE (MAGNESIUM ORAL) Take 1 tablet by mouth twice daily. Disp: Rfl: LACTOBACILLUS RHAMNOSUS GG (PROBIOTIC ORAL) Take 1 capsule by mouth daily at bedtime. Disp: Rfl: FE PS CMPLX/ASCORBIC ACID (IRON PS COMPLEX-ASCORBIC ACID ORAL) Take 1 tablet by mouth daily at bedtime. Disp: Rfl: vitamin b complex(B COMPLEX TAB) Take one(1) tablet daily. Disp: Rfl: 0 COMPOUNDED PRESCRIPTION Powerstep full length insert(M72.2) Plantar fasciitis of right foot (primary encounter diagnosis) (Patient not taking: Reported on 09/22/2017 ) Disp: 1 Device Rfl: 0 zoledronic acid (RECLAST) 5 mg/100 mL pgbk PREMIX piggyback Inject 100 mL intravenously every year. Disp: 100 mL Rfl: 0 cholecalciferol, Vitamin D3, (VITAMIN D3) 50,000 unit cap capsule Take 1 capsule by mouth once each week. (Patient not taking: Reported on 09/22/2017 ) Disp: 12 capsule Rfl: 4 CPAP AutoSV EPAP min= 12 cmH2O, PS min-max = [id number], Max pressure = 25 cmH2O, Rate =Auto, lifetime supplies, Dx: G47.33, G47.37 Disp: 1 Device Rfl: 0 diclofenac sodium (VOLTAREN) 1 % topical gel Apply 2 g to affected area four times daily. Disp: 1 Tube Rfl: 1 Coenzyme Q10 200 mg cap Take 200 mg by mouth twice daily. Disp: Rfl: Cyanocobalamin (VITAMIN B-12) 1,000 mcg ORAL Lozg Take 1,000 mcg by mouth once daily. Disp: Rfl: LIDOCAINE 5 % (700 MG/PATCH) ADHESIVE PATCH Apply one patch to each hip daily. Remove patch after 12 hours. as needed Disp: 180 Rfl: 1 MULTIVITAMIN TAB daily Disp: Rfl: Current Facility-Administered Medications: lactated ringers infusion 5-30 mL/hr INTRAVENOUS ONCE Karen (Alek) ALEK Spears Allergies: ALLERGIES Allergen Reactions - Effexor [Venlafaxin* Intolerance headaches - Anticholinergics - * cogentin - Codiene [Other] chest pain - Cogentin [Benztropi* Body went rigid - Dex Rachelle [Other] Medrol dose pack: hallucinatios, diff walking - Keflex [Cephalexin] Intolerance makes pt too drowsy - Phenothiazines compazine-1 sided facial weakness (like stroke) - Roxicet [Oxycodone-* Itching Adequate NPO status: Yes Anesthetic risks, benefits, alternatives, personnel and consent discussed: Yes Patient agrees to proceed: Yes Previous Anesthesia: No history of adverse event. Airway Assessment: MP 3; Neck ROM: Full ROM without neurologic symptoms; Airway Evaluation: Short Neck Dentition: Teeth intact Symptoms of Sleep Apnea: JUVENAL - CPAP Additional Physical Exam: Lungs: Patient health status unchanged since recent history and physical. See history and physical for exam findings. Cardiac: Patient health status unchanged since recent history and physical. See history and physical for exam findings. Additional pertinent findings: N/A Blood Products: Not anticipated for this procedure. Anesthetic Plan: General; Standard ASA Monitors Pain Management Plan: Parenteral or Oral ASA Class: 2 Other Medical Problems: JUVENAL; hypothyroid; Hx seizures - takes meds; depression Chronic Beta Natacha medication administered within 24 hours: N/A I have interviewed and examined the patient. I have reviewed the medical record and/or the pre-anesthesia evaluation, pertinent labs, and test results. Significant changes in the patient's condition since the History and Physical, not otherwise documented in primary service progress notes: No This contains updated information obtained within 48 hours of Surgery/Procedure. SIGNATURE: Ofelia Vanegas MD DATE: October 02, 2017 TIME: 9:08 AM HISTORY PHYSICAL Observed: 10/02/2017 Status: COMPLETED Source: [place] 8:52 AM CL[facility] OTHER CAMPUS REPOSITORY O ID: [id number] Author: Ray Juan Service: Gastroenterology Author Type: Physician Electric Furnace Operator Type: HANDP Filed: 10/02/2017 9:08 AM Note Text: UPDATED HISTORY AND PHYSICAL EXAMINATION SERVICE DATE: 10/02/2017 SERVICE TIME: 8:53 AM SERVICE: Gastroenterology service of Dr. Contreras PHYSICAL EXAM MUST BE COMPLETED ON ADMISSION The History and Physical (completed in the past 30 days) has been reviewed and the patient has been examined. The contents accurately reflect the patient's condition with the following additions or revisions since the HANDP was completed. Patient denies any changes to health since last examination. Patient has had a long standing history of epigastric abdominal that has been worsening over the past three to four months. She states that it is varies with intensity but is now severe and gnawing, she has regurgitation of whole food substances, early satiety, and dysphagia. Planned procedure for today is EGD. Medication reconciliation list reviewed in [facility]. Past medical history, past surgical history, social history and family history reviewed and updated in [facility]. ALLERGIES Allergen Reactions - Effexor [Venlafaxin* Intolerance headaches - Anticholinergics - * cogentin - Codiene [Other] chest pain - Cogentin [Benztropi* Body went rigid - Dex Rachelle [Other] Medrol dose pack: hallucinatios, diff walking - Keflex [Cephalexin] Intolerance makes pt too drowsy - Phenothiazines compazine-1 sided facial weakness (like stroke) - Roxicet [Oxycodone-* Itching BP 98/54 Pulse (!) 55 Temp 36.8 ?C (98.2 ?F) (Temporal Artery) Resp 16 SpO2 97% Examination indicates no changes. On examination today: Lungs: Clear to auscultation bilaterally. Heart: RRR, Normal S1/S2, No murmurs, rubs, gallops or thrills appreciated. Abdomen: BS+ in all quadrants, abdomen is soft, non tender, and without guarding. Assessment: Epigastric pain, dysphagia, regurgitation of whole food, early satiety Plan: EGD This HANDP can be found in the Electronic Medical Record dated 09/29/2017 Radha Cotto PA-C. SIGNATURE: Ray Juan II, PA-C PATIENT NAME: Frannie Romo DATE: October 02, 2017 TIME: 8:53 AM SURGICAL PATHOLOGY Observed: 10/02/2017 Status: F Source: [place] 12:00 AM CLINIC OTHER CAMPUS REPOSITORY Specimen originated from [facility] Specimen #: [id number] Submitting Physician: ANA CONTRERAS FINAL DIAGNOSIS 1. Gastric biopsy (A) - Mild chronic inactive gastritis. - No morphologic evidence of H. pylori organisms. 2. Esophagus at 34 cm, biopsy (B) - Squamous epithelium with mild reactive epithelial changes. - Morphologic features of eosinophilic esophagitis are not seen. - Detached strip of intestinalized epithelium, negative for dysplasia (see comment). 3. Esophagus at 29 cm, biopsy (C) - Squamous epithelium with mild reactive epithelial changes. - Morphologic features of eosinophilic esophagitis are not seen. COMMENT 2. The intestinalized epithelium may represent carryover from screening of the jejunum/ gastrojejunal anastomosis, although the differential diagnosis includes Christensen's esophagus. There is no evidence of dysplasia. Clinical and endoscopic correlation is recommended. ZULAY/jane 10/03/2017 Anjana Adames M.D. (Electronic Signature) SPECIMEN SUBMITTED A: GASTRIC, BIOPSY B: ESOPHAGUS AT 34 CM, BIOPSY C: ESOPHAGUS AT 29 CM, BIOPSY CLINICAL DATA EPIGASTRIC PAIN; Per EGD note: gastrojejunal anastomosis present A: R/O H. PYLORI B-C: R/O EOSINOPHIL ESOPHAGITIS GROSS DESCRIPTION A. Received in formalin is one piece of lake, soft tissue measuring 0.7 x 0.2 x 0.1 cm. Totally submitted in one cassette. B. Received in formalin are two pieces of lake, soft tissue aggregating to 1.0 x 0.2 x 0.1 cm. Totally submitted in one cassette. C. Received in formalin are two pieces of lake, soft tissue aggregating to 0.7 x 0.2 x 0.1 cm. Totally submitted in one cassette. Gross examination performed at [facility], [address] [place] [address] 10/02/2017 12:16:36 PM Date of Report: 10/03/2017 Date of Procedure: 10/02/2017 Date of Receipt: 10/02/2017 Submitted by: ANA CONTRERAS Location: [facility] Diagnostic interpretation performed at [facility], [address] [place] [address], [place] [address]. COMP METABOLIC PANEL Collected: 09/30/2017 Status: F Source: [place] 11:25 AM [facility] REPOSITORY TYPE CODE TESTS RESULT OUT OF REFERENCE UNITS RANGE LAB TP 6.3-8.0 g/dL Low Protein, Total 6.2 LAB ALB 3.9-4.9 g/dL Albumin 4.2 LAB CA 8.5-10.2 mg/dL Calcium, Total 8.8 LAB TBIL 0.2-1.3 mg/dL Bilirubin, Total 0.6 LAB ALKP 32-117 U/L Alkaline Phosphatase 108 LAB AST 13-35 U/L AST 31 LAB GLU 74-99 mg/dL Glucose 79 Result Comment: The [place] [employer] (ADA) provides guidance for cutoff values for fasting glucose and random glucose. The ADA defines fasting as no caloric intake for at least 8 hours. Fas ting plasma glucose results between 100 to 125 mg/dL indicate increased risk for diabetes (prediabetes). Fasting plasma glucose results greater than or equal to 126 mg/dL meet the criteria for diagnosis of diabetes. In the absence of unequivocal hyperglycemia, results should be confirmed by repeat testing. In a patient with classic symptoms of hyperglycemia or hyperglycemic crisis, random plasma glucose results greater than or equal to 200 mg/dL meet the criteria for diagnosis of diabetes. Reference: Standards of Medical Care in Diabetes 2016, [place] [employer] Association. Diabetes Care. 2016.39(Suppl 1). LAB BUN 7-21 mg/dL BUN 9 LAB CRET 0.58-0.96 mg/dL Creatinine 0.70 LAB NA 136-144 mmol/L Sodium 144 LAB K 3.7-5.1 mmol/L Potassium 4.3 LAB CL 97-105 mmol/L Chloride 103 LAB CO2 22-30 mmol/L CO2 High 31 LAB AGAP 9-18 mmol/L Anion Gap 10 LAB ALT 7-38 U/L ALT 38 LAB GFRAA eGFR- Amer. >60 LAB GFRNAA . eGFR-All Other Races >60 Result Comment: eGFR (Estimated GFR) Units of measure: mL/min/1.73 meters squared eGFR is derived from the reexpressed MDRD Study equation using the following parameters: serum creatinine, age, gender and race. The creatinine assay has been calibrated to be traceable to IDMS. An eGFR <60 mL/min/1.73m2 for >3 months is consistent with chronic kidney disease. Refer to KDOQI guidelines for clinical interpretation. In patients with unstable renal function, e.g. those with acute kidney injury, the eGFR may not accurately reflect actual GFR. Performed By: #### CMP, FREET3, FT4, TSH, CBC, HBA1C #### [facility] [employer] [address] [place], [place] [address] FREE T3 Collected: 09/30/2017 Status: F Source: [place] 11:25 AM [facility] REPOSITORY TYPE CODE TESTS RESULT OUT OF RANGE REFERENCE UNITS LAB FREET3 2.3-4.1 pg/mL Free T3 2.8 Performed By: #### CMP, FREET3, FT4, TSH, CBC, HBA1C #### [facility] [employer] [address] [place], [place] [address] FREE T4 Collected: 09/30/2017 Status: F Source: [place] 11:25 AM [facility] REPOSITORY TYPE CODE TESTS RESULT OUT OF RANGE REFERENCE UNITS LAB FT4 0.9-1.7 ng/dL Free T4 1.2 Performed By: #### CMP, FREET3, FT4, TSH, CBC, HBA1C #### [facility] [employer] [address] [place], [place] [address] TSH Collected: 09/30/2017 Status: F Source: [place] 11:25 AM [facility] REPOSITORY TYPE CODE TESTS RESULT OUT OF RANGE REFERENCE UNITS LAB TSH 0.400-5.500 uU/mL TSH 1.390 Performed By: #### CMP, FREET3, FT4, TSH, CBC, HBA1C #### [facility] [address] [place], [place] [address] CBC Collected: 09/30/2017 Status: F Source: [place] 11:25 AM [facility] [place] [place] REPOSITORY TYPE CODE TESTS RESULT OUT OF REFERENCE UNITS RANGE LAB WBC 3.70-11.00 k/uL WBC 6.49 LAB RBC 3.90-5.20 m/uL RBC 4.55 LAB HGB 11.5-15.5 g/dL Hemoglobin 14.3 LAB HCT 36.0-46.0 % Hematocrit 44.3 LAB MCV 80.0-100.0 fL MCV 97.4 LAB MCH 26.0-34.0 pG MCH 31.4 LAB MCHC 30.5-36.0 g/dL MCHC 32.3 LAB RDWCV 11.5-15.0 % RDW-CV 12.7 LAB PLTCT 150-400 k/uL Platelet Count 316 LAB MPV 9.0-12.7 fL MPV 9.9 LAB ABSNUC <0.01 k/uL Absolute nRBC <0.01 Performed By: #### CMP, FREET3, FT4, TSH, CBC, HBA1C #### [facility] [address] [place], [place] [address] HEMOGLOBIN A1C Collected: 09/30/2017 Status: F Source: [place] 11:25 AM [facility] REPOSITORY TYPE CODE TESTS RESULT OUT OF REFERENCE UNITS RANGE LAB HGBA1C 4.3-5.6 % Hemoglobin A1c 5.2 LAB HBA0 mg/dL Est. Average Glucose 103 Result Comment: eAG: (Estimated average glucose) is a calculated value from HgbA1c and is customer field representative of the average blood glucose level in the last 2-3 month period. Performed By: #### CMP, FREET3, FT4, TSH, CBC, HBA1C #### [facility] [address] [place] [id number] PROGRESS Observed: 09/30/2017 Status: COMPLETED Source: [place] 8:00 AM [facility] REPOSITORY HNO ID: [id number] Author: ALEK Early (Pa) Service: Gastroenterology Author Type: Physician Electric Furnace Operator Type: Progress Notes Filed: 09/30/2017 8:00 AM Note Text: I reviewed the patient's allergies and entered the orders requested by the procedural physician or per anesthesia guidelines. ALEK Early September 30, 2017 8:00 AM NURSING PROG Observed: 09/30/2017 Status: COMPLETED Source: [place] 6:50 AM [facility] REPOSITORY HNO ID: [id number] Author: Melisa Bates RN Service: (none) Author Type: Registered Nurse Type: Nursing Progress Note Filed: 09/30/2017 6:51 AM Note Text: PACC Nurse Progress Note History AND Physical: PACC Visit Date: 09/29 Original HANDP Date: N/A ED visit Date: N/A Outside HANDP Scanned Date: N/A Labs Within Last 6 Months: CBC: Date 07/30/17-[facility] BMP/CMP: Date 07/30/17-[facility]. Imaging Within Last 12 Months: N/A Cardiac Testing: EKG in last 12 Months: Yes: Date: 12/06/16, Comment: in epic Last Menstrual Period: LMP Date: Not recorded Postmenopausal >1yr: No, S/P Hysterectomy: Yes BMI Percentile (PEDS): N/A Risk Assessment: N/A Anesthesia Review: N/A Narrative: Per HANDP Labs and EKG not indicated per PACC protocol Pre-op Considerations: N/A Chart Check: COMPLETED Melisa Bates RN September 30, 2017 6:50 AM HISTORY PHYSICAL Observed: 09/29/2017 Status: COMPLETED Source: [place] 2:17 PM [facility] REPOSITORY HNO ID: [id number] Author: Radha Cotto (Pa) Service: (none) Author Type: Physician Electric Furnace Operator Type: HANDP Filed: 09/30/2017 8:15 AM Note Text: HISTORY AND PHYSICAL EXAMINATION SERVICE DATE: 09/29/2017 SERVICE TIME: 2:17 PM PRIMARY CARE PHYSICIAN: Sun Bennett MD REASON FOR VISIT: Frannie Romo is a 67 year old female who is scheduled for EGD at the request of Dr. Ana Contreras for consultation. My final recommendation will be communicated back to the requesting physician by way of shared medical record or letter. 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 Epilepsy (Hcc) Major Depression in Partial Remission (Hcc) Psychophysiological Insomnia Obstructive Sleep apnea - AHI 48 Osteoporosis Central Sleep Apnea in Conditions Classified Elsewhere(327.27) Ddd (Degenerative Disc Disease), Cervical Ddd (Degenerative Disc Disease), Lumbar Chronic Pain Memory Deficits Onychomycosis Psoriatic Arthritis (Hcc) Rotator Cuff Arthropathy, Left Cervical Radiculopathy Chronic Bilateral Low Back Pain With Bilateral Sciatica Epigastric Abdominal Pain History of Gastric Bypass Central Sleep Apnea Due to Medical Condition Subjective CHIEF COMPLAINT: abdominal pain HPI: Frannie Romo is a 67 year old female that presents c/o a long history of epigastric abdominal pain that has worsened with time. Pt states pain is severe and gnawing. +regurgitation of food, early satiety, loss of appetite, dysphagia. Taking Zantac. No nausea or vomiting. No hematochezia or melena. h/o gastric bypass 2010. Esophogram 08/2017 showed dysmotility and delayed emptying. Scheduled for EGD on 10/02. Denies recent illness, fever or chills. PAST MEDICAL HISTORY Diagnosis Date - Abdominal pain, unspecified site 02/28/2008 Reportedly had sigmoid resetion for adhesions about age 37: mutiple surgeries for adhesions, endometriosis, etc Camelia, LUIS (no comment on ovaries), cliff in sigmoid area by CT in 04-06 O'Demario (Colorectal surgery) 12-05: prob small midline, incis hernia, did not rec repeat EGD/Colon/Surg-more adhesions WBC 5.8 K, HCT 43% in 01-04 Int hems ligated in 01-04 per [facility] - Abnormal glucose tolerance test 01/16/2012 - Abnormality of gait 05/01/2011 - Acute gastritis without mention of hemorrhage 11/21/2009 - Benign paroxysmal positional vertigo 06/10/2011 - Calculus of kidney - Cancer (HCC) - Cervicalgia - Colon polyp, hyperplastic May 2006 - Depression - Depressive disorder, not elsewhere classified - Disorder of bone and cartilage, unspecified - Disorders of bursae and tendons in shoulder region, unspecified 02/28/2008 Arthroscopic R rotator cuff and biceps tendon repair 05-08-[address] Karthik Bella at [facility] - Dysphagia prior esophageal dilations twice - Dysphagia - Dysphagia, unspecified(787.20) - Epilepsy (HCC) 02/12/2012 - Esophageal reflux - Esophagitis, unspecified - Examination of participant in clinical trial 03/01/2010 IRB: 184 Study Title: Pelvic floor Disorders in Bariatric Surgery Patients Visit: Baseline PI: Patricia Patel MD Supervisor Finishing Room/Pager:Mayra Mar RN # [phone] Patient seen for PFD research study (IRB 06-184). Patient agreed to participate in the QOL survey portion of the trial. Patient completed baseline survey. SIG:Mayra Mar RN - Grief 11/20/2011 - Gum symptoms - History of bladder cancer - Insomnia - Malignant neoplasm of bladder, part unspecified 02/15/2008 Biopsy 11-04: non-invasive, low grade papillary carcinoma Cystosocpy 11-[address] David López in [place]: no tumors, stones or foreign bodies Urology rec Cystoscopy in 03-07 and then q 6 mo for 3 years then yearly Urology rec antibiotics in 08-06 for chronic cystitis after voided urine for cytology: may treat for 3-6 months - Microscopic hematuria 02/21/2010 - Nasal congestion 08/18/2013 - Nasal obstruction 08/31/2014 - Obesity, unspecified 11-07-09 stated BMI 38 ht: 61 wt: 201 lbs - Obstructive sleep apnea [facility] - Other and unspecified disc disorder of thoracic region - Other and unspecified hyperlipidemia - Other pain disorders related to psychological factors 05/15/2011 - Pain in limb 06/09/2008 Pain reportedly started after a fall in the shower in 2007 [place] 05-09: rec Neurontin Baller 06-06: pain in distribution of deep peroneal nerve, change to Lyrica and sponge MLA with met and RLD Referred to [facility] in 07-07 Basali to manage pain meds as of 11-06 - Persistent disorder of initiating or maintaining sleep - Personal history of malignant neoplasm of bladder 08/29/2009 - 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 - EGD W/O [facility] SPECIMEN W/BX 03/08/08 - EGD W/O OR W/BRUSH/WASH 11/21/2009 EGD - EGD W/O OR W/BRUSH/WASH 12/01/2013 EGD - EGD W/O OR W/BRUSH/WASH 03/28/15 EGD out pt [facility] - EGD W/O OR W/BRUSH/WASH 08/19/2017 EGD - KNEE SCOPE,DIAGNOSTIC Arthroscopy, knee right - PAST SURGICAL HISTORY OF adhesions, partial sigmoid resection, bladder lift - PAST SURGICAL HISTORY OF 2005 left Hammertoe correction right 2nd and 3rd toes - PAST SURGICAL HISTORY OF 1992 Left shoulder surgery - PAST SURGICAL HISTORY OF 09/07 left shoulder - PAST SURGICAL HISTORY OF 03-09-10 Bariatric, with hernia repair. - PAST SURGICAL HISTORY OF 1983 oophrectomy - RECONSTRUCT PROX HUMERAL IMPLANT 2006 Arthroplasty, shoulder right - REMOVAL GALLBLADDER 1980 Cholecystectomy - TOTAL ABDOM HYSTERECTOMY 1982 Hysterectomy, LUIS FAMILY HISTORY Problem Relation Age of Onset - Stroke Mother - Heart Mother - Hypertension Mother - Diabetes Mother - GI Mother colitis - Alzheimer's Disease Father - Heart Father Bypass - Breast Cancer Paternal Aunt - Breast Cancer Paternal Grandmother - GI Sister colitis SOCIAL HISTORY: Social History Marital status: Spouse name: Seng Years of education: Number of children: 2 Social History Main Topics Smoking status: Never Smoker Smokeless tobacco: Never Used Alcohol use: No Drug use: No Prior to Admission medications as of 09/29/17 1429 Medication Sig Last Dose Taking docusate sodium (COLACE) 100 mg capsule Take 100 mg by mouth twice daily. Taking Yes lamoTRIgine (LAMICTAL) 100 mg tablet Take 1 tablet by mouth twice daily. Taking Yes Zolpidem (AMBIEN CR) 12.5 mg CR tablet Take 1 tablet by mouth at bedtime as needed for Sedation (generic acceptable) for up to 90 days. Taking Yes traZODone (DESYREL) 100 mg tablet Take 3 tablets by mouth daily at bedtime. Taking Yes ARIPiprazole (ABILIFY) 5 mg tablet Take 2 tablets by mouth once daily. Taking Yes zoledronic acid (RECLAST) 5 mg/100 mL pgbk PREMIX piggyback Inject 100 mL intravenously every year. Taking Yes levothyroxine (SYNTHROID) 50 mcg tablet Take one tablet by mouth once daily, and 1/2 tablet on Sundays. Taking Yes CPAP Mask (per patient preference) optional chin strap (if indicated), filters, tubing / heated tubing, heated humidity and lifetime supplies. Dx. JUVENAL G47.33 327.23 Taking Yes CPAP AutoSV EPAP min= 12 cmH2O, PS min-max = [id number], Max pressure = 25 cmH2O, Rate =Auto, lifetime supplies, Dx: G47.33, G47.37 Taking Yes diclofenac sodium (VOLTAREN) 1 % topical gel Apply 2 g to affected area four times daily. Taking Yes APREMILAST (OTEZLA ORAL) Take 30 mg by mouth twice daily. Taking Yes DOCUSATE CALCIUM (STOOL SOFTENER ORAL) Take 1 tablet by mouth twice daily. Taking Yes oxybutynin XL (DITROPAN XL) 10 mg 24 hr tablet Take 10 mg by mouth once daily. Taking Yes Biotin 10,000 mcg cap Take 15,000 mcg by mouth twice daily. Taking Yes Coenzyme Q10 200 mg cap Take 200 mg by mouth twice daily. Yes pregabalin 150 mg capsule Take 1 capsule by mouth once daily. Dr Lance Patient taking differently: Take 150 mg by mouth twice daily. Dr Lance Taking Yes MAGNESIUM OXIDE/MAG AA CHELATE (MAGNESIUM ORAL) Take 1 tablet by mouth twice daily. Taking Yes LACTOBACILLUS RHAMNOSUS GG (PROBIOTIC ORAL) Take 1 capsule by mouth daily at bedtime. Taking Yes FE PS CMPLX/ASCORBIC ACID (IRON PS COMPLEX-ASCORBIC ACID ORAL) Take 1 tablet by mouth daily at bedtime. Taking Yes LIDOCAINE 5 % (700 MG/PATCH) ADHESIVE PATCH Apply one patch to each hip daily. Remove patch after 12 hours. as needed Taking Yes COMPOUNDED PRESCRIPTION Powerstep full length insert (M72.2) Plantar fasciitis of right foot (primary encounter diagnosis) Patient not taking: Reported on 09/22/2017 cholecalciferol, Vitamin D3, (VITAMIN D3) 50,000 unit cap capsule Take 1 capsule by mouth once each week. Patient not taking: Reported on 09/22/2017 ASCORBIC ACID (VITAMIN C ORAL) Take 1 tablet by mouth once daily. Cyanocobalamin (VITAMIN B-12) 1,000 mcg ORAL Lozg Take 1,000 mcg by mouth once daily. MULTIVITAMIN TAB daily vitamin b complex(B COMPLEX TAB) Take one(1) tablet daily. No medication comments found. ALLERGIES Allergen Reactions - Effexor [Venlafaxin* Intolerance headaches - Anticholinergics - * cogentin - Codiene [Other] chest pain - Cogentin [Benztropi* Body went rigid - Dex Rachelle [Other] Medrol dose pack: hallucinatios, diff walking - Keflex [Cephalexin] Intolerance makes pt too drowsy - Phenothiazines compazine-1 sided facial weakness (like stroke) - Roxicet [Oxycodone-* Itching REVIEW OF SYSTEMS: PAIN ASSESSMENT: General: No weight loss, malaise or fevers. Neuro: Postive for Seizures-controlled on Lamictal-no seizures for over 30 yrs. +BLE neuropathy; No TIA or stroke. Respiratory: JUVENAL on machine, No history of current cough, dyspnea, bronchitis or pneumonia in the last 6 weeks. No history of asthma or COPD. Cardiovascular: Told she has MVP in past; Negative for chest pain, orthopnea, PND, dizziness, lightheadedness or syncope. Negative for heart murmur. Negative for palpitations or arrhythmia. Negative for h/o DVT/PE. Negative for LE edema. No NV or heart surgery. GI: see HPI; +fatty liver, H/o partial bowel resection for endometriosis; +diverticulosis with h/o diverticulitis; No ETOH use. No PUD : h/o bladder cancer s/p TURBT; H/o kidney stones; No UTI sxs; No CKD. 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 : Denies, No LMP recorded. Patient has had a hysterectomy. Endocrine: Hypothyroidism-treated; No DM Hematology: No history of bleeding or clotting disorder. Pt is not taking anti-coagulation or platelet medications. No history of hematological symptoms or problems. Oncology: see ROS Psych: Anxiety, Depression, Chronic pain Musculoskeletal: Back pain and Joint pain Skin: Negative for lesions, rash and itching. Objective PHYSICAL EXAM: VITALS: BP 96/55 Pulse 64 Temp 99.1 Ht 5' 0 (1.52m) Wt 109 lb 3.2 oz (49.5kg) SpO2 95% BMI 21.33 kg/(m2). General: Alert and oriented, No acute distress, Healthy appearance Skin: Normal color, no rash, no lesions. HEENT: EOM, pupils equal, round and reactive., No carotid bruits Cardiovascular: Normal S1 AND S2, no rubs, murmurs or gallops. No JVD. Pulse regular. Lungs: Normal breath sounds, no wheezes or crackles., No chest deformities or chest wall tenderness. Abdomen: Soft, non-tender, no rigidity., No masses or organomegaly. Extremities: No deformity, no edema or tenderness, no joint swelling or clubbing. Neurological: Normal cognition and motor skills. Gait normal. No weakness or sensory deficit. Pulses: Carotid and radial pulses normal +2. Diagnostic tests reviewed for today's visit: Lab Value Units Date High Low HB 13.6 g/dL 07/30/2017 15.5 11.5 HCT 43.1 % 07/30/2017 46.0 36.0 WBC 10.34 k/uL 07/30/2017 11.00 3.70 PLT 295 k/uL 07/30/2017 400 150 NA 143 mmol/L 07/30/2017 144 136 K 4.2 mmol/L 07/30/2017 5.1 3.7 GLUC 120 mg/dL 07/30/2017 99 74 BUN 17 mg/dL 07/30/2017 21 7 CREAT 0.62 mg/dL 07/30/2017 0.96 0.58 PTSEC No results within date range. INR No results within date range. APTT No results within date range. ALT 21 U/L 07/30/2017 38 7 AST 21 U/L 07/30/2017 35 13 TBILI 0.6 mg/dL 07/30/2017 1.3 0.2 TSH 0.641 uU/mL 04/30/2017 5.500 0.400 Lab Value Units Date High Low HCGQT No results within date range. UHCG No results within date range. HCG, BODY* No results within date range. Lab Value Units Date High Low ABORHD No results within date range. ABSCREEN No results within date range. Hemoglobin A1C (%) Date Value 10/25/2015 5.3 05/18/2015 5.2 12/13/2013 5.3 HBA1C, Randi (%) Date Value 07/06/2008 6.2 Most recent labs Most recent imaging Most recent EKG: sinus bradycardia at 57 beats per minute, normal axis, normal intervals, reviewed by production illustrator. All in Epic Assessment ASSESSMENT Patient has the following medical conditions: Concern regarding Anesthesia- h/o awake paralyzed in the past and once bottomed out after surgery, but no issues with last EGD Hypothyroid-on RX Trazodone AND Ambien use Esophageal dysmotility JUVENAL uses machine s/p gastric bypass Seizures controlled on Lamictal S/p partial colectomy Psoriatic arthritis-Otezla GERD-Zantac METS: Climb a flight of stairs or walk up a hill (5.50 METs) Patient denies any chest pain or undue shortness of breath with the above physical activity. ASA Class: 3 ANESTHESIA FINDINGS: Intubation History: No history of difficult intubation Significant Anesthesia Considerations: once recalled being paralyzed and couldn't breathe and not yet under anesthesia. Once after a spinal injection bottomed out and had to get transferred to the hospital Airway Exam: General: Normal appearance Mallampati Score is CLASS II ULBT: Class I - Lower incisors can bite the upper lip above the tom line Neck: Distance from hyoid to mentum during neck extension is at least 3 finger breaths, Limited movement turning to one or both sides, Pain with neck movement Mouth: Normal tongue size and Mouth opening greater than 2 finger breaths Dentition: Caps/crowns Airway History: No abnormal airway history STOP BANG Score: JUVENAL uses CPAP/BiPAP PLAN This patient is optimally prepared for surgery. CONSULTS: Patient does not require consults for optimization at this time. The Following Tests/Procedures Have Been Initiated: Labs not indicated per [facility] protocol, EKG not indicated per [facility] protocol Planned Anesthetic: MAC Instructions Given to Patient: Patient given verbal and written preop instructions and voices comprehension and compliance. SIGNATURE: Radha Cotto PA-C PATIENT NAME: Frannie Romo DATE: September 29, 2017 TIME: 2:17 PM PAGER/CONTACT #: [id number] Observed: 09/24/2017 Status: COMPLETED Source: [place] 12:00 AM CLINIC OTHER CAMPUS REPOSITORY Patient:Frannie Romo MRN: <[id number]> Height:5' 0(1.524 m) Weight:109 lb 3.2 oz (49.533 kg) Outpatient Medications as of 10/02/17: docusate sodium (COLACE) 100 mg capsule lamoTRIgine (LAMICTAL) 100 mg tablet Zolpidem (AMBIEN CR) 12.5 mg CR tablet traZODone (DESYREL) 100 mg tablet COMPOUNDED PRESCRIPTION ARIPiprazole (ABILIFY) 5 mg tablet zoledronic acid (RECLAST) 5 mg/100 mL pgbk PREMIX piggyback cholecalciferol, Vitamin D3, (VITAMIN D3) 50,000 unit cap capsule levothyroxine (SYNTHROID) 50 mcg tablet CPAP CPAP diclofenac sodium (VOLTAREN) 1 % topical gel APREMILAST (OTEZLA ORAL) DOCUSATE CALCIUM (STOOL SOFTENER ORAL) oxybutynin XL (DITROPAN XL) 10 mg 24 hr tablet ASCORBIC ACID (VITAMIN C ORAL) Biotin 10,000 mcg cap Coenzyme Q10 200 mg cap pregabalin 150 mg capsule MAGNESIUM OXIDE/MAG AA CHELATE (MAGNESIUM ORAL) LACTOBACILLUS RHAMNOSUS GG (PROBIOTIC ORAL) Cyanocobalamin (VITAMIN B-12) 1,000 mcg ORAL Lozg FE PS CMPLX/ASCORBIC ACID (IRON PS COMPLEX-ASCORBIC ACID ORAL) LIDOCAINE 5 % (700 MG/PATCH) ADHESIVE PATCH MULTIVITAMIN TAB vitamin b complex(B COMPLEX TAB) Admission/Clinic Administered Medications as of 10/02/17: Patient has no admission medications. 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] Epilepsy (HCC) [G40.909] 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] Psychophysiological insomnia [F51.04] Obstructive Sleep apnea - AHI 48 [G47.33] Osteoporosis [M81.0] Central sleep apnea in conditions classified elsewhere(327.27) [G47.37] DDD (degenerative disc disease), cervical [M50.30] DDD (degenerative disc disease), lumbar [M51.36] Chronic pain [G89.29] Memory deficits [R41.3] Onychomycosis [B35.1] Psoriatic arthritis (HCC) [L40.50] Rotator cuff arthropathy, left [M12.812] Cervical radiculopathy [M54.12] Chronic bilateral low back pain with bilateral sciatica [M54.42, M54.41, G89.29] Epigastric abdominal pain [R10.13] History of gastric bypass [Z98.84] Central sleep apnea due to medical condition [G47.37] Allergies: Effexor [Venlafaxine Hcl] Anticholinergics - Quaternary Codiene [Other] Cogentin [Benztropine Mesylate] dex rachelle [Other] Keflex [Cephalexin] Phenothiazines Roxicet [Oxycodone-Acetaminophen] Date Verified: 10/02/17 Lab Values Lab Value Units Date High Low POTA* 4.3 mmol/L 09/30/2017 5.1 3.7 DAVID* 44.3 % 09/30/2017 46.0 36.0 Progress Notes ( SURGERY CENTER): Melisa Bates, RN, RN 09/30/2017 6:51 AM Signed [facility] Nurse Progress Note History AND Physical: [facility] Visit Date: 09/29 Original HANDP Date: N/A ED visit Date: N/A Outside HANDP Scanned Date: N/A Labs Within Last 6 Months: CBC: Date 07/30/17-acc BMP/CMP: Date 07/30/17-acc. Imaging Within Last 12 Months: N/A Cardiac Testing: EKG in last 12 Months: Yes: Date: 12/06/16, Comment: in epic Last Menstrual Period: LMP Date: Not recorded Postmenopausal >1yr: No, S/P Hysterectomy: Yes BMI Percentile (PEDS): N/A Risk Assessment: N/A Anesthesia Review: N/A Narrative: Per HANDP Labs and EKG not indicated per [facility] protocol Pre-op Considerations: N/A Chart Check: COMPLETED Melisa Bates RN September 30, 2017 6:50 AM ALEK Early PA 09/30/2017 8:00 AM Signed I reviewed the patient's allergies and entered the orders requested by the procedural physician or per anesthesia guidelines. ALEK Early September 30, 2017 8:00 AM Ray Juan II, PA-C 10/02/2017 9:08 AM Signed UPDATED HISTORY AND PHYSICAL EXAMINATION SERVICE DATE: 10/02/2017 SERVICE TIME: 8:53 AM SERVICE: Gastroenterology service of Dr. Contreras PHYSICAL EXAM MUST BE COMPLETED ON ADMISSION The History and Physical (completed in the past 30 days) has been reviewed and the patient has been examined. The contents accurately reflect the patient's condition with the following additions or revisions since the HANDP was completed. Patient denies any changes to health since last examination. Patient has had a long standing history of epigastric abdominal that has been worsening over the past three to four months. She states that it is varies with intensity but is now severe and gnawing, she has regurgitation of whole food substances, early satiety, and dysphagia. Planned procedure for today is EGD. Medication reconciliation list reviewed in [facility]. Past medical history, past surgical history, social history and family history reviewed and updated in [facility]. ALLERGIES Allergen Reactions - Effexor [Venlafaxin* Intolerance headaches - Anticholinergics - * cogentin - Codiene [Other] chest pain - Cogentin [Benztropi* Body went rigid - Dex Rachelle [Other] Medrol dose pack: hallucinatios, diff walking - Keflex [Cephalexin] Intolerance makes pt too drowsy - Phenothiazines compazine-1 sided facial weakness (like stroke) - Roxicet [Oxycodone-* Itching BP 98/54 Pulse (!) 55 Temp 36.8 ?C (98.2 ?F) (Temporal Artery) Resp 16 SpO2 97% Examination indicates no changes. On examination today: Lungs: Clear to auscultation bilaterally. Heart: RRR, Normal S1/S2, No murmurs, rubs, gallops or thrills appreciated. Abdomen: BS+ in all quadrants, abdomen is soft, non tender, and without guarding. Assessment: Epigastric pain, dysphagia, regurgitation of whole food, early satiety Plan: EGD This HANDP can be found in the Electronic Medical Record dated 09/29/2017 Radha Cotto PA-C. SIGNATURE: Ray Juan II, PA-C PATIENT NAME: Frannie Romo DATE: October 02, 2017 TIME: 8:53 AM Ofelia Vanegas MD 10/02/2017 9:11 AM Signed [facility] DAY OF SURGERY NOTE PATIENT NAME: Frannie Romo Procedure(s) (LRB): EGD (N/A) Surgeon(s): Ana Contreras Vitals: 10/02/17 0901 BP: 98/54 Pulse: (!) 55 Resp: 16 Temp: 36.8 ?C (98.2 ?F) TempSrc: Temporal Artery SpO2: 97% 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 Epilepsy (Hcc) Major Depression in Partial Remission (Hcc) Psychophysiological Insomnia Obstructive Sleep apnea - AHI 48 Osteoporosis Central Sleep Apnea in Conditions Classified Elsewhere(327.27) Ddd (Degenerative Disc Disease), Cervical Ddd (Degenerative Disc Disease), Lumbar Chronic Pain Memory Deficits Onychomycosis Psoriatic Arthritis (Hcc) Rotator Cuff Arthropathy, Left Cervical Radiculopathy Chronic Bilateral Low Back Pain With Bilateral Sciatica Epigastric Abdominal Pain History of Gastric Bypass Central Sleep Apnea Due to Medical Condition PAST MEDICAL HISTORY Diagnosis Date - Abdominal pain, unspecified site 02/28/2008 Reportedly had sigmoid resetion for adhesions about age 37: mutiple surgeries for adhesions, endometriosis, etc Camelia, LUIS (no comment on ovaries), cliff in sigmoid area by CT in 04-06 [facility] (Colorectal surgery) : prob small midline, incis hernia, did not rec repeat EGD/Colon/Surg-more adhesions WBC 5.8 K, HCT 43% in 01-04 Int hems ligated in 01-04 per [facility] - Abnormal glucose tolerance test 01/16/2012 - Abnormality of gait 05/01/2011 - Acute gastritis without mention of hemorrhage 11/21/2009 - Benign paroxysmal positional vertigo 06/10/2011 - Calculus of kidney - Cancer ([facility]) - Cervicalgia - Colon polyp, hyperplastic May 2006 - Depression - Depressive disorder, not elsewhere classified - Disorder of bone and cartilage, unspecified - Disorders of bursae and tendons in shoulder region, unspecified 02/28/2008 Arthroscopic R rotator cuff and biceps tendon repair 05-08-[address] Karthik Bella at [facility] - Dysphagia prior esophageal dilations twice - Dysphagia - Dysphagia, unspecified(787.20) - Epilepsy ([facility]) 02/12/2012 - Esophageal reflux - Esophagitis, unspecified - Examination of participant in clinical trial 03/01/2010 IRB: [id number] Study Title: Pelvic floor Disorders in Bariatric Surgery Patients Visit: Baseline PI: Patricia Patel MD Supervisor Finishing Room/Pager:Mayra Mar RN # [phone] Patient seen for PFD research study (IRB 06- 608). Patient agreed to participate in the QOL survey portion of the trial. Patient completed baseline survey. SIG:Mayra Mar RN - Grief 11/20/2011 - Gum symptoms - History of bladder cancer - Insomnia - Malignant neoplasm of bladder, part unspecified 02/15/2008 Biopsy 11-04: non-invasive, low grade papillary carcinoma Cystosocpy 11-[address] David López in [place]: no tumors, stones or foreign bodies Urology rec Cystoscopy in 03-07 and then q 6 mo for 3 years then yearly Urology rec antibiotics in 08-06 for chronic cystitis after voided urine for cytology: may treat for 3-6 months - Microscopic hematuria 02/21/2010 - Nasal congestion 08/18/2013 - Nasal obstruction 08/31/2014 - Obesity, unspecified 11-07-09 stated BMI 38 ht: 61 wt: 201 lbs - Obstructive sleep apnea [facility] - Other and unspecified disc disorder of thoracic region - Other and unspecified hyperlipidemia - Other pain disorders related to psychological factors 05/15/2011 - Pain in limb 06/09/2008 Pain reportedly started after a fall in the shower in 2007 [place] 05-09: rec Neurontin Elayne 06-06: pain in distribution of deep peroneal nerve, change to Lyrica and sponge MLA with met and RLD Referred to [facility] in 07-07 Basali to manage pain meds as of 11-06 - Persistent disorder of initiating or maintaining sleep - Personal history of malignant neoplasm of bladder 08/29/2009 - 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 - Rotator cuff (capsule) sprain 11/20/2010 - Shoulder pain 05/09/2009 - Status post bariatric surgery - Thoracic or lumbosacral neuritis or radiculitis, unspecified - Unspecified hypothyroidism - Unspecified sleep apnea PAST SURGICAL HISTORY Procedure Laterality Date - APPENDECTOMY 1983 - COLONOSCOP W/ OR W/O [facility] SPEC [place] 2006 Colonoscopy - COLONOSCOP W/ OR W/O [facility] SPEC 04/10/06 Colonoscopy/ [place] - COLONOSCOP W/ OR W/O [facility] SPEC 12/01/2013 Colonoscopy - CYSTOSCOPY 2010 left stent placement - CYSTOSCOPY removal of bladder lesion- malignant. - EGD W/O [facility] SPECIMEN W/BX 03/08/08 - EGD W/O OR W/BRUSH/WASH 11/21/2009 EGD - EGD W/O OR W/BRUSH/WASH 12/01/2013 EGD - EGD W/O OR W/BRUSH/WASH 03/28/15 EGD out pt [facility] - EGD W/O OR W/BRUSH/WASH 08/19/2017 EGD - KNEE SCOPE,DIAGNOSTIC Arthroscopy, knee right - PAST SURGICAL HISTORY OF adhesions, partial sigmoid resection, bladder lift - PAST SURGICAL HISTORY OF 2005 left Hammertoe correction right 2nd and 3rd toes - PAST SURGICAL HISTORY OF 1992 Left shoulder surgery - PAST SURGICAL HISTORY OF 09/07 left shoulder - PAST SURGICAL HISTORY OF 03-09-10 Bariatric, with hernia repair. - PAST SURGICAL HISTORY OF 1983 oophrectomy - RECONSTRUCT PROX HUMERAL IMPLANT 2006 Arthroplasty, shoulder right - REMOVAL GALLBLADDER 1980 Cholecystectomy - TOTAL ABDOM HYSTERECTOMY 1982 Hysterectomy, LUIS FAMILY HISTORY Problem Relation Age of Onset - Stroke Mother - Heart Mother - Hypertension Mother - Diabetes Mother - GI Mother colitis - Alzheimer's Disease Father - Heart Father Bypass - Breast Cancer Paternal Aunt - Breast Cancer Paternal Grandmother - GI Sister colitis Social History: Social History Substance Use Topics - Smoking status: Never Smoker - Smokeless tobacco: Never Used - Alcohol use No Current Outpatient Prescriptions on File Prior to Encounter: docusate sodium (COLACE) 100 mg capsule Take 100 mg by mouth twice daily. lamoTRIgine (LAMICTAL) 100 mg tablet Take 1 tablet by mouth twice daily. Zolpidem (AMBIEN CR) 12.5 mg CR tablet Take 1 tablet by mouth at bedtime as needed for Sedation (generic acceptable) for up to 90 days. traZODone (DESYREL) 100 mg tablet Take 3 tablets by mouth daily at bedtime. ARIPiprazole (ABILIFY) 5 mg tablet Take 2 tablets by mouth once daily. levothyroxine (SYNTHROID) 50 mcg tablet Take one tablet by mouth once daily, and 1/2 tablet on Sundays. CPAP Mask (per patient preference) optional chin strap (if indicated), filters, tubing / heated tubing, heated humidity and lifetime supplies. Dx. JUVENAL G47.33 327.23 APREMILAST (OTEZLA ORAL) Take 30 mg by mouth twice daily. DOCUSATE CALCIUM (STOOL SOFTENER ORAL) Take 1 tablet by mouth twice daily. oxybutynin XL (DITROPAN XL) 10 mg 24 hr tablet Take 10 mg by mouth once daily. ASCORBIC ACID (VITAMIN C ORAL) Take 1 tablet by mouth once daily. Biotin 10,000 mcg cap Take 15,000 mcg by mouth twice daily. pregabalin 150 mg capsule Take 1 capsule by mouth once daily. Dr Lance (Patient taking differently: Take 150 mg by mouth twice daily. Dr Lance) MAGNESIUM OXIDE/MAG AA CHELATE (MAGNESIUM ORAL) Take 1 tablet by mouth twice daily. LACTOBACILLUS RHAMNOSUS GG (PROBIOTIC ORAL) Take 1 capsule by mouth daily at bedtime. FE PS CMPLX/ASCORBIC ACID (IRON PS COMPLEX-ASCORBIC ACID ORAL) Take 1 tablet by mouth daily at bedtime. vitamin b complex(B COMPLEX TAB) Take one(1) tablet daily. COMPOUNDED PRESCRIPTION Powerstep full length insert(M72.2) Plantar fasciitis of right foot (primary encounter diagnosis) (Patient not taking: Reported on 09/22/2017 ) zoledronic acid (RECLAST) 5 mg/100 mL pgbk PREMIX piggyback Inject 100 mL intravenously every year. cholecalciferol, Vitamin D3, (VITAMIN D3) 50,000 unit cap capsule Take 1 capsule by mouth once each week. (Patient not taking: Reported on 09/22/2017 ) CPAP AutoSV EPAP min= 12 cmH2O, PS min-max = [id number], Max pressure = 25 cmH2O, Rate =Auto, lifetime supplies, Dx: G47.33, G47.37 diclofenac sodium (VOLTAREN) 1 % topical gel Apply 2 g to affected area four times daily. Coenzyme Q10 200 mg cap Take 200 mg by mouth twice daily. Cyanocobalamin (VITAMIN B-12) 1,000 mcg ORAL Lozg Take 1,000 mcg by mouth once daily. LIDOCAINE 5 % (700 MG/PATCH) ADHESIVE PATCH Apply one patch to each hip daily. Remove patch after 12 hours. as needed MULTIVITAMIN TAB daily No current facility-administered medications on file prior to encounter. Current Outpatient Prescriptions: docusate sodium (COLACE) 100 mg capsule Take 100 mg by mouth twice daily. Disp: Rfl: lamoTRIgine (LAMICTAL) 100 mg tablet Take 1 tablet by mouth twice daily. Disp: 60 tablet Rfl: 5 Zolpidem (AMBIEN CR) 12.5 mg CR tablet Take 1 tablet by mouth at bedtime as needed for Sedation (generic acceptable) for up to 90 days. Disp: 90 tablet Rfl: 0 traZODone (DESYREL) 100 mg tablet Take 3 tablets by mouth daily at bedtime. Disp: 270 tablet Rfl: 3 ARIPiprazole (ABILIFY) 5 mg tablet Take 2 tablets by mouth once daily. Disp: 180 tablet Rfl: 3 levothyroxine (SYNTHROID) 50 mcg tablet Take one tablet by mouth once daily, and 1/2 tablet on Sundays. Disp: 90 tablet Rfl: 3 CPAP Mask (per patient preference) optional chin strap (if indicated), filters, tubing / heated tubing, heated humidity and lifetime supplies. Dx. JUVENAL G47.33 327.23 Disp: 1 Device Rfl: 0 APREMILAST (OTEZLA ORAL) Take 30 mg by mouth twice daily. Disp: Rfl: DOCUSATE CALCIUM (STOOL SOFTENER ORAL) Take 1 tablet by mouth twice daily. Disp: Rfl: oxybutynin XL (DITROPAN XL) 10 mg 24 hr tablet Take 10 mg by mouth once daily. Disp: Rfl: ASCORBIC ACID (VITAMIN C ORAL) Take 1 tablet by mouth once daily. Disp: Rfl: Biotin 10,000 mcg cap Take 15,000 mcg by mouth twice daily. Disp: Rfl: pregabalin 150 mg capsule Take 1 capsule by mouth once daily. Dr Lance (Patient taking differently: Take 150 mg by mouth twice daily. Dr Lance) Disp: Rfl: MAGNESIUM OXIDE/MAG AA CHELATE (MAGNESIUM ORAL) Take 1 tablet by mouth twice daily. Disp: Rfl: LACTOBACILLUS RHAMNOSUS GG (PROBIOTIC ORAL) Take 1 capsule by mouth daily at bedtime. Disp: Rfl: FE PS CMPLX/ASCORBIC ACID (IRON PS COMPLEX-ASCORBIC ACID ORAL) Take 1 tablet by mouth daily at bedtime. Disp: Rfl: vitamin b complex(B COMPLEX TAB) Take one(1) tablet daily. Disp: Rfl: 0 COMPOUNDED PRESCRIPTION Powerstep full length insert(M72.2) Plantar fasciitis of right foot (primary encounter diagnosis) (Patient not taking: Reported on 09/22/2017 ) Disp: 1 Device Rfl: 0 zoledronic acid (RECLAST) 5 mg/100 mL pgbk PREMIX piggyback Inject 100 mL intravenously every year. Disp: 100 mL Rfl: 0 cholecalciferol, Vitamin D3, (VITAMIN D3) 50,000 unit cap capsule Take 1 capsule by mouth once each week. (Patient not taking: Reported on 09/22/2017 ) Disp: 12 capsule Rfl: 4 CPAP AutoSV EPAP min= 12 cmH2O, PS min-max = [id number], Max pressure = 25 cmH2O, Rate =Auto, lifetime supplies, Dx: G47.33, G47.37 Disp: 1 Device Rfl: 0 diclofenac sodium (VOLTAREN) 1 % topical gel Apply 2 g to affected area four times daily. Disp: 1 Tube Rfl: 1 Coenzyme Q10 200 mg cap Take 200 mg by mouth twice daily. Disp: Rfl: Cyanocobalamin (VITAMIN B-12) 1,000 mcg ORAL Lozg Take 1,000 mcg by mouth once daily. Disp: Rfl: LIDOCAINE 5 % (700 MG/PATCH) ADHESIVE PATCH Apply one patch to each hip daily. Remove patch after 12 hours. as needed Disp: 180 Rfl: 1 MULTIVITAMIN TAB daily Disp: Rfl: Current Facility-Administered Medications: lactated ringers infusion 5-30 mL/hr INTRAVENOUS ONCE ALEK Early (Pa) Allergies: ALLERGIES Allergen Reactions - Effexor [Venlafaxin* Intolerance headaches - Anticholinergics - * cogentin - Codiene [Other] chest pain - Cogentin [Benztropi* Body went rigid - Dex Rachelle [Other] Medrol dose pack: hallucinatios, diff walking - Keflex [Cephalexin] Intolerance makes pt too drowsy - Phenothiazines compazine-1 sided facial weakness (like stroke) - Roxicet [Oxycodone-* Itching Adequate NPO status: Yes Anesthetic risks, benefits, alternatives, personnel and consent discussed: Yes Patient agrees to proceed: Yes Previous Anesthesia: No history of adverse event. Airway Assessment: MP 3; Neck ROM: Full ROM without neurologic symptoms; Airway Evaluation: Short Neck Dentition: Teeth intact Symptoms of Sleep Apnea: JUVENAL - CPAP Additional Physical Exam: Lungs: Patient health status unchanged since recent history and physical. See history and physical for exam findings. Cardiac: Patient health status unchanged since recent history and physical. See history and physical for exam findings. Additional pertinent findings: N/A Blood Products: Not anticipated for this procedure. Anesthetic Plan: General; Standard ASA Monitors Pain Management Plan: Parenteral or Oral ASA Class: 2 Other Medical Problems: JUVENAL; hypothyroid; Hx seizures - takes meds; depression Chronic Beta Natacha medication administered within 24 hours: N/A I have interviewed and examined the patient. I have reviewed the medical record and/or the pre-anesthesia evaluation, pertinent labs, and test results. Significant changes in the patient's condition since the History and Physical, not otherwise documented in primary service progress notes: No This contains updated information obtained within 48 hours of Surgery/Procedure. SIGNATURE: Ofelia Vanegas MD DATE: October 02, 2017 TIME: 9:08 AM Mingo Ricks, RN, RN 10/02/2017 9:13 AM Signed PATIENT EDUCATION TOPIC: PROCEDURE / SURGERY: Pre-op Teaching: Logistics Protocols PATIENT NAME: Frannie Romo PATIENT LOCATION: Room/bed info not found READINESS TO LEARN COGNITIVE ABILITY: Alert and oriented MOTIVATION TO LEARN: Eager FAMILY SUPPORT: High - Very involved in pt care INSTRUCTION PROVIDED TO: Patient PATIENT LEARNS BEST BY: Individual Instruction FACTORS AFFECTING LEARNING: None PHYSICAL LIMITATIONS AFFECTING LEARNING: None LEARNING RESPONSE DIAGNOSIS: ADULT: egd PATIENT/FAMILY RESPONSE: Verbalizes understanding of: PRE-PROCEDURE INSTRUCTIONS-Correct action to take to follow pre-procedure instructions METHOD OF INSTRUCTION: Individual instruction FOLLOW-UP PLAN: Reinforce - Repeat previous content INSTRUCTIONAL AIDS USED: NA SUPPLEMENTAL MATERIAL PROVIDED TO PATIENT: None REFERRAL (RECOMMENDATION): None Electronically Signed By: Mingo Ricks RN Progress Notes ([facility]): Art Durham RN, RN 09/23/2017 1:23 PM Signed I called patient and reviewed instructions for EGD. Patient instructed on diet and medication regimen. Patient verbalized understanding of all instructions and will call with any questions.Zenon EGD 10/02/17 Art Durham RN PROGRESS Observed: 09/22/2017 Status: COMPLETED Source: [place] 2:50 PM [facility] REPOSITORY HNO ID: [id number] Author: Ana Contreras Service: (none) Author Type: Physician Type: Progress Notes Filed: 09/22/2017 3:34 PM Note Text: Follow Up Visit 09/22/17 1448 BP: 94/60 Pulse: 64 Resp: 17 Weight: 48.6 kg (107 lb 3.2 oz) Height: 152.4 cm (5') Current Medications: Current Outpatient Prescriptions: docusate sodium (COLACE) 100 mg capsule Take 100 mg by mouth twice daily. Disp: Rfl: oxycodone HCl/acetaminophen (PERCOCET ORAL) Take by mouth. Disp: Rfl: lamoTRIgine (LAMICTAL) 100 mg tablet Take 1 tablet by mouth twice daily. Disp: 60 tablet Rfl: 5 Zolpidem (AMBIEN CR) 12.5 mg CR tablet Take 1 tablet by mouth at bedtime as needed for Sedation (generic acceptable) for up to 90 days. Disp: 90 tablet Rfl: 0 traZODone (DESYREL) 100 mg tablet Take 3 tablets by mouth daily at bedtime. Disp: 270 tablet Rfl: 3 OTEZLA 30 mg tablet Take 30 mg by mouth twice daily. Disp: Rfl: ARIPiprazole (ABILIFY) 5 mg tablet Take 2 tablets by mouth once daily. Disp: 180 tablet Rfl: 3 zoledronic acid (RECLAST) 5 mg/100 mL pgbk PREMIX piggyback Inject 100 mL intravenously every year. Disp: 100 mL Rfl: 0 modafinil (PROVIGIL) 100 mg tablet Take 1 tablet by mouth as needed. Disp: 90 tablet Rfl: 0 levothyroxine (SYNTHROID) 50 mcg tablet Take one tablet by mouth once daily, and 1/2 tablet on Sundays. Disp: 90 tablet Rfl: 3 CPAP Mask (per patient preference) optional chin strap (if indicated), filters, tubing / heated tubing, heated humidity and lifetime supplies. Dx. JUVENAL G47.33 327.23 Disp: 1 Device Rfl: 0 CPAP AutoSV EPAP min= 12 cmH2O, PS min-max = 3-32fkP8T, Max pressure = 25 cmH2O, Rate =Auto, lifetime supplies, Dx: G47.33, G47.37 Disp: 1 Device Rfl: 0 diclofenac sodium (VOLTAREN) 1 % topical gel Apply 2 g to affected area four times daily. Disp: 1 Tube Rfl: 1 APREMILAST (OTEZLA ORAL) Take 30 mg by mouth twice daily. Disp: Rfl: oxybutynin XL (DITROPAN XL) 10 mg 24 hr tablet Take 10 mg by mouth once daily. Disp: Rfl: Biotin 10,000 mcg cap Take 15,000 mcg by mouth twice daily. Disp: Rfl: pregabalin 150 mg capsule Take 1 capsule by mouth once daily. Dr Lance (Patient taking differently: Take 150 mg by mouth twice daily. Dr Lance) Disp: Rfl: MAGNESIUM OXIDE/MAG AA CHELATE (MAGNESIUM ORAL) Take 1 tablet by mouth twice daily. Disp: Rfl: LACTOBACILLUS RHAMNOSUS GG (PROBIOTIC ORAL) Take 1 capsule by mouth daily at bedtime. Disp: Rfl: Cyanocobalamin (VITAMIN B-12) 1,000 mcg ORAL Lozg Take 1,000 mcg by mouth once daily. Disp: Rfl: FE PS CMPLX/ASCORBIC ACID (IRON PS COMPLEX-ASCORBIC ACID ORAL) Take 1 tablet by mouth daily at bedtime. Disp: Rfl: LIDOCAINE 5 % (700 MG/PATCH) ADHESIVE PATCH Apply one patch to each hip daily. Remove patch after 12 hours. as needed Disp: 180 Rfl: 1 COMPOUNDED PRESCRIPTION Powerstep full length insert(M72.2) Plantar fasciitis of right foot (primary encounter diagnosis) (Patient not taking: Reported on 09/22/2017 ) Disp: 1 Device Rfl: 0 traZODone (DESYREL) 100 mg tablet Take 3 tablets by mouth daily at bedtime. (Patient not taking: Reported on 09/22/2017 ) Disp: 12 tablet Rfl: 0 Ranitidine HCl (ZANTAC) 300 mg tablet Take 1 tablet by mouth once daily. (Patient not taking: Reported on 09/22/2017 ) Disp: 30 tablet Rfl: 1 methocarbamol (ROBAXIN) 750 mg tablet Take 1 tablet by mouth three times daily. PRN spasms and pain (Patient not taking: Reported on 09/22/2017 ) Disp: 50 tablet Rfl: 0 BUTRANS 10 mcg/hour Apply 1 Patch as directed every Friday for 12 days. (Dr. Lance) (Patient not taking: Reported on 09/22/2017 ) Disp: Rfl: fluticasone (FLONASE) 50 mcg/actuation nasal spray Use 2 Sprays in each nostril once daily. Rinse mouth after use. (Patient not taking: Reported on 09/22/2017 ) Disp: 1 Bottle Rfl: 0 cholecalciferol, Vitamin D3, (VITAMIN D3) 50,000 unit cap capsule Take 1 capsule by mouth once each week. (Patient not taking: Reported on 09/22/2017 ) Disp: 12 capsule Rfl: 4 >IV - Start IV START IV (Patient not taking: Reported on 09/22/2017 ) Disp: 1 Each Rfl: 0 DOCUSATE CALCIUM (STOOL SOFTENER ORAL) Take 1 tablet by mouth twice daily. Disp: Rfl: ASCORBIC ACID (VITAMIN C ORAL) Take 1 tablet by mouth once daily. Disp: Rfl: Coenzyme Q10 200 mg cap Take 200 mg by mouth twice daily. Disp: Rfl: HYDROcodone-acetaminophen 5-325 mg per tablet Take 1 tablet by mouth every 8 hours as needed. Disp: Rfl: MULTIVITAMIN TAB daily Disp: Rfl: vitamin b complex(B COMPLEX TAB) Take one(1) tablet daily. Disp: Rfl: 0 No current facility-administered medications for this visit. Follow up regarding: Esophageal dysphagia Interval Events:Esophageal manometry 09/18/2017 Lower Esophageal Sphincter Region Normal Landmarks ?? ?Proximal LES (from nares)(cm) 42.3 ?? ?LES length(cm) 1.5 2.7-4.8 ?? ?Esophageal length (LES-UES centers)(cm) 23.5 ?? ?Intraabdominal LES length(cm) 0.8 ?? ?Hiatal hernia? No LES Pressures ?? ?Pressure gerald. method eSleeve,IRP ?? ?Basal (respiratory mean)(mmHg) 24.3 13-43 ?? ?Residual (median)(mmHg) -2.0 <15.0 Upper Esophageal Sphincter Normal Mean basal pressure(mmHg) 40.1 34-104 Mean residual pressure(mmHg) -2.7 <12.0 Esophageal Motility Normal Number of swallows evaluated 10 Damon Classification ?? ?% failed 0 ?? ?% weak 10 ?? ?% ineffective 10 ?? ?% panesophageal pressurization 0 ?? ?% premature contraction 0 ?? ?% fragmented 0 ?? ?% intact 90 ?? ?Number of hypercontractile swallows 0 Pharyngeal / UES Motility Normal No. swallows evaluated 10 Evaluated @ 2.0 AND 3.0 above UES ?? ?Mean peak pressure(mmHg) 4.7 Indications Esophageal dysphagia Interpretation: Normal LES pressure and normal LES relaxation Normal peristalsis in 9/10 swallows Failed peristalsis in one swallow Impressions Normal High resolution Esophageal Manometry Roseanne Kirk MD Subjective: Patient is here for F/U of Lower chest/epigastric discomfort She is able to swallow rice.without difficulty. Other foods seem to cause discomfort. Lower chest epigastric pain is constantly present.Rare need for Tums since the gastric bypass. She has several BM's daily as she takes a stool softener ans magnesium twice daily Objective: Deferred Impression: Lower chest/epigastric discomfort with History of prior gastroesophageal reflux for 2 years?improved with gastric bypass Normal esophageal motility. Esophageal manometry results do not corellate with the timed barium swallow results. Plan:EGD with MAC October 02, 2017 Etiology of symptoms is unclear The majority of the visit was spent counseling and/or coordinating care for the patient. Rzst-jy-ugyo time was 15 minutes. Ana Contreras MD CNOV Observed: 09/22/2017 Status: COMPLETED Source: [place] 2:40 PM [facility] [place] REPOSITORY Office Visit ([facility]) FRANNIE ROMO ([id number]) 1950 [facility] Date Time Provider Department 09/22/17 2:40 PM ANA CONTRERAS During your visit today, we recorded the following information about you: Pulse Respiration Blood pressure Weight 64/minute 17/minute 94/60 48.6 kg Height 1.524 m Ana Contreras MD 09/22/2017 3:34 PM Signed Follow Up Visit 09/22/17 1448 BP: 94/60 Pulse: 64 Resp: 17 Weight: 48.6 kg (107 lb 3.2 oz) Height: 152.4 cm (5') Current Medications: Current Outpatient Prescriptions: docusate sodium (COLACE) 100 mg capsule Take 100 mg by mouth twice daily. Disp: Rfl: oxycodone HCl/acetaminophen (PERCOCET ORAL) Take by mouth. Disp: Rfl: lamoTRIgine (LAMICTAL) 100 mg tablet Take 1 tablet by mouth twice daily. Disp: 60 tablet Rfl: 5 Zolpidem (AMBIEN CR) 12.5 mg CR tablet Take 1 tablet by mouth at bedtime as needed for Sedation (generic acceptable) for up to 90 days. Disp: 90 tablet Rfl: 0 traZODone (DESYREL) 100 mg tablet Take 3 tablets by mouth daily at bedtime. Disp: 270 tablet Rfl: 3 OTEZLA 30 mg tablet Take 30 mg by mouth twice daily. Disp: Rfl: ARIPiprazole (ABILIFY) 5 mg tablet Take 2 tablets by mouth once daily. Disp: 180 tablet Rfl: 3 zoledronic acid (RECLAST) 5 mg/100 mL pgbk PREMIX piggyback Inject 100 mL intravenously every year. Disp: 100 mL Rfl: 0 modafinil (PROVIGIL) 100 mg tablet Take 1 tablet by mouth as needed. Disp: 90 tablet Rfl: 0 levothyroxine (SYNTHROID) 50 mcg tablet Take one tablet by mouth once daily, and 1/2 tablet on Sundays. Disp: 90 tablet Rfl: 3 CPAP Mask (per patient preference) optional chin strap (if indicated), filters, tubing / heated tubing, heated humidity and lifetime supplies. Dx. JUVENAL G47.33 327.23 Disp: 1 Device Rfl: 0 CPAP AutoSV EPAP min= 12 cmH2O, PS min-max = [id number], Max pressure = 25 cmH2O, Rate =Auto, lifetime supplies, Dx: G47.33, G47.37 Disp: 1 Device Rfl: 0 diclofenac sodium (VOLTAREN) 1 % topical gel Apply 2 g to affected area four times daily. Disp: 1 Tube Rfl: 1 APREMILAST (OTEZLA ORAL) Take 30 mg by mouth twice daily. Disp: Rfl: oxybutynin XL (DITROPAN XL) 10 mg 24 hr tablet Take 10 mg by mouth once daily. Disp: Rfl: Biotin 10,000 mcg cap Take 15,000 mcg by mouth twice daily. Disp: Rfl: pregabalin 150 mg capsule Take 1 capsule by mouth once daily. Dr aLnce (Patient taking differently: Take 150 mg by mouth twice daily. Dr Lance) Disp: Rfl: MAGNESIUM OXIDE/MAG AA CHELATE (MAGNESIUM ORAL) Take 1 tablet by mouth twice daily. Disp: Rfl: LACTOBACILLUS RHAMNOSUS GG (PROBIOTIC ORAL) Take 1 capsule by mouth daily at bedtime. Disp: Rfl: Cyanocobalamin (VITAMIN B-12) 1,000 mcg ORAL Lozg Take 1,000 mcg by mouth once daily. Disp: Rfl: FE PS CMPLX/ASCORBIC ACID (IRON PS COMPLEX-ASCORBIC ACID ORAL) Take 1 tablet by mouth daily at bedtime. Disp: Rfl: LIDOCAINE 5 % (700 MG/PATCH) ADHESIVE PATCH Apply one patch to each hip daily. Remove patch after 12 hours. as needed Disp: 180 Rfl: 1 COMPOUNDED PRESCRIPTION Powerstep full length insert(M72.2) Plantar fasciitis of right foot (primary encounter diagnosis) (Patient not taking: Reported on 09/22/2017 ) Disp: 1 Device Rfl: 0 traZODone (DESYREL) 100 mg tablet Take 3 tablets by mouth daily at bedtime. (Patient not taking: Reported on 09/22/2017 ) Disp: 12 tablet Rfl: 0 Ranitidine HCl (ZANTAC) 300 mg tablet Take 1 tablet by mouth once daily. (Patient not taking: Reported on 09/22/2017 ) Disp: 30 tablet Rfl: 1 methocarbamol (ROBAXIN) 750 mg tablet Take 1 tablet by mouth three times daily. PRN spasms and pain (Patient not taking: Reported on 09/22/2017 ) Disp: 50 tablet Rfl: 0 BUTRANS 10 mcg/hour Apply 1 Patch as directed every Friday for 12 days. (Dr. Lance) (Patient not taking: Reported on 09/22/2017 ) Disp: Rfl: fluticasone (FLONASE) 50 mcg/actuation nasal spray Use 2 Sprays in each nostril once daily. Rinse mouth after use. (Patient not taking: Reported on 09/22/2017 ) Disp: 1 Bottle Rfl: 0 cholecalciferol, Vitamin D3, (VITAMIN D3) 50,000 unit cap capsule Take 1 capsule by mouth once each week. (Patient not taking: Reported on 09/22/2017 ) Disp: 12 capsule Rfl: 4 >IV - Start IV START IV (Patient not taking: Reported on 09/22/2017 ) Disp: 1 Each Rfl: 0 DOCUSATE CALCIUM (STOOL SOFTENER ORAL) Take 1 tablet by mouth twice daily. Disp: Rfl: ASCORBIC ACID (VITAMIN C ORAL) Take 1 tablet by mouth once daily. Disp: Rfl: Coenzyme Q10 200 mg cap Take 200 mg by mouth twice daily. Disp: Rfl: HYDROcodone-acetaminophen 5-325 mg per tablet Take 1 tablet by mouth every 8 hours as needed. Disp: Rfl: MULTIVITAMIN TAB daily Disp: Rfl: vitamin b complex(B COMPLEX TAB) Take one(1) tablet daily. Disp: Rfl: 0 No current facility-administered medications for this visit. Follow up regarding: Esophageal dysphagia Interval Events:Esophageal manometry 09/18/2017 Lower Esophageal Sphincter Region Normal Landmarks ?? ?Proximal LES (from nares)(cm) 42.3 ?? ?LES length(cm) 1.5 2.7-4.8 ?? ?Esophageal length (LES-UES centers)(cm) 23.5 ?? ?Intraabdominal LES length(cm) 0.8 ?? ?Hiatal hernia? No LES Pressures ?? ?Pressure gerald. method eSleeve,IRP ?? ?Basal (respiratory mean)(mmHg) 24.3 13-43 ?? ?Residual (median)(mmHg) -2.0 <15.0 Upper Esophageal Sphincter Normal Mean basal pressure(mmHg) 40.1 34-104 Mean residual pressure(mmHg) -2.7 <12.0 Esophageal Motility Normal Number of swallows evaluated 10 Damon Classification ?? ?% failed 0 ?? ?% weak 10 ?? ?% ineffective 10 ?? ?% panesophageal pressurization 0 ?? ?% premature contraction 0 ?? ?% fragmented 0 ?? ?% intact 90 ?? ?Number of hypercontractile swallows 0 Pharyngeal / UES Motility Normal No. swallows evaluated 10 Evaluated @ 2.0 AND 3.0 above UES ?? ?Mean peak pressure(mmHg) 4.7 Indications Esophageal dysphagia Interpretation: Normal LES pressure and normal LES relaxation Normal peristalsis in 9/10 swallows Failed peristalsis in one swallow Impressions Normal High resolution Esophageal Manometry Roseanne Kirk MD Subjective: Patient is here for F/U of Lower chest/epigastric discomfort She is able to swallow rice.without difficulty. Other foods seem to cause discomfort. Lower chest epigastric pain is constantly present.Rare need for Tums since the gastric bypass. She has several BM's daily as she takes a stool softener ans magnesium twice daily Objective: Deferred Impression: Lower chest/epigastric discomfort with History of prior gastroesophageal reflux for 2 years?improved with gastric bypass Normal esophageal motility. Esophageal manometry results do not corellate with the timed barium swallow results. Plan:EGD with MAC October 02, 2017 Etiology of symptoms is unclear The majority of the visit was spent counseling and/or coordinating care for the patient. Kwid-mm-oink time was 15 minutes. Ana Contreras MD Referring Provider: SELF [[id number]] Allergies As of Date: 09/22/2017 Noted Allergy Reaction EFFEXOR (VENLAFAXINE HCL) 01/01/2010 5 - Intolerance Comments: headaches ANTICHOLINERGICS - QUATERNARY 01/04/2003 Comments: [place]entin Jethroiene [Other] 01/04/2003 Comments: chest pain AMY (BENZTROPINE MESYLATE) 03/16/2008 Comments: Body went rigid dex rachelle [Other] 03/16/2008 Comments: Medrol dose pack: hallucinatios, diff walking KEFLEX (CEPHALEXIN) 12/18/2011 5 - Intolerance Comments: makes pt too drowsy PHENOTHIAZINES 01/04/2003 Comments: compazine-1 sided facial weakness (like stroke) ROXICET (OXYCODONE-ACETAMINOPHEN) 03/15/2010 9 - Itching Date Reviewed: 09/22/2017 Reviewed by: Antoinette Rockwell) LOU Newton - Fully Assessed Reason for Visit: Throat Problem [109] Primary Visit Diagnosis:Esophageal dysphagia [R13.10] Other Visit Diagnosis:Epigastric abdominal pain [R10.13] Order(s):EGD DILATION GEN ANES [[id number]] Order #: [id number] FUTURE Prescriptions as of 09/22/2017 Sig: DOCUSATE SODIUM 100 MG CAPSULE Take 100 mg by mouth twice da* PERCOCET ORAL Take by mouth. LAMOTRIGINE 100 MG TABLET Take 1 tablet by mouth twice * ZOLPIDEM ER 12.5 MG TABLET,EX* Take 1 tablet by mouth at bed* TRAZODONE 100 MG TABLET Take 3 tablets by mouth daily* OTEZLA 30 MG TABLET Take 30 mg by mouth twice lulu* ARIPIPRAZOLE 5 MG TABLET Take 2 tablets by mouth once * ZOLEDRONIC ACID 5 MG/100 ML I* Inject 100 mL intravenously e* MODAFINIL 100 MG TABLET Take 1 tablet by mouth as nee* LEVOTHYROXINE 50 MCG TABLET Take one tablet by mouth once* CPAP Mask (per patient preference)* CPAP AutoSV EPAP min= 12 cmH2O, PS* DICLOFENAC 1 % TOPICAL GEL Apply 2 g to affected area fo* OTEZLA ORAL Take 30 mg by mouth twice lulu* OXYBUTYNIN CHLORIDE ER 10 MG * Take 10 mg by mouth once vashti* BIOTIN 10,000 MCG CAPSULE Take 15,000 mcg by mouth twic* PREGABALIN 150 MG CAPSULE Take 1 capsule by mouth once * Patient taking differently: Take 150 mg by mouth twice da* MAGNESIUM ORAL Take 1 tablet by mouth twice * PROBIOTIC ORAL Take 1 capsule by mouth daily* CYANOCOBALAMIN (VIT B-12) 1,0* Take 1,000 mcg by mouth once * IRON PS COMPLEX-ASCORBIC ACID* Take 1 tablet by mouth daily * LIDOCAINE 5 % TOPICAL PATCH Apply one patch to each hip d* COMPOUNDED PRESCRIPTION Powerstep full length insert * Patient not taking: Reported on 09/22/2017 TRAZODONE 100 MG TABLET Take 3 tablets by mouth daily* Patient not taking: Reported on 09/22/2017 RANITIDINE 300 MG TABLET Take 1 tablet by mouth once d* Patient not taking: Reported on 09/22/2017 METHOCARBAMOL 750 MG TABLET Take 1 tablet by mouth three * Patient not taking: Reported on 09/22/2017 BUTRANS 10 MCG/HOUR TRANSDERM* Apply 1 Patch as directed jose alfredo* Patient not taking: Reported on 09/22/2017 FLUTICASONE 50 MCG/ACTUATION * Use 2 Sprays in each nostril * Patient not taking: Reported on 09/22/2017 CHOLECALCIFEROL (VITAMIN D3) * Take 1 capsule by mouth once * Patient not taking: Reported on 09/22/2017 COMPOUNDED PRESCRIPTION START IV Patient not taking: Reported on 09/22/2017 STOOL SOFTENER ORAL Take 1 tablet by mouth twice * VITAMIN C ORAL Take 1 tablet by mouth once d* COENZYME Q10 200 MG CAPSULE Take 200 mg by mouth twice da* HYDROCODONE 5 MG-ACETAMINOPHE* Take 1 tablet by mouth every * MULTIVITAMIN TABLET daily B COMPLEX TABLET,EXTENDED REL* Take one(1) tablet daily. More... More... Problem List As Of Date 09/22/2017 Noted Resolved Obesity, unspecified [E66.9] INVALID FOR*09/18/2012 More... More... Depressive disorder, not elsewhere classified [*INVALID FOR*10/21/2012 More... Mixed hyperlipidemia [E78.2] INVALID FOR* More... BONE AND CARTILAGE DIS NOS [M89.9, M94.9] INVALID FOR* More... Hypothyroidism [E03.9] INVALID FOR* More... Unspecified sleep apnea [G47.30] INVALID FOR*06/20/2014 More... More... Radiculopathy, lumbar region [M54.16] INVALID FOR* More... More... DISC DIS NEC/NOS-THORAC [M51.9] INVALID FOR* More... CERVICALGIA [M54.2] INVALID FOR* More... More... More... Vitamin D deficiency [E55.9] INVALID FOR* More... More... Insomnia [G47.00] 04/13/2014 Chronic insomnia [F51.04] INVALID FOR*04/13/2014 Class: Chronic More... 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 Obstructive Sleep apnea - AHI 48 [G47.33] INVALID FOR* More... Osteoporosis, unspecified [M81.0] INVALID FOR*08/09/2014 Osteoporosis [M81.0] INVALID FOR* More... Central sleep apnea in conditions classified el*INVALID FOR* DDD (degenerative disc disease), cervical [M50.*INVALID FOR* DDD (degenerative disc disease), lumbar [M51.36]INVALID FOR* Chronic pain [G89.29] INVALID FOR* Memory deficits [R41.3] INVALID FOR* Onychomycosis [B35.1] INVALID FOR* More... Psoriatic arthritis (HCC) [L40.50] INVALID FOR* Rotator cuff arthropathy, left [M12.812] INVALID FOR* Cervical radiculopathy [M54.12] INVALID FOR* Chronic bilateral low back pain with bilateral *INVALID FOR* Epigastric abdominal pain [R10.13] INVALID FOR* More... History of gastric bypass [Z98.84] INVALID FOR* More... Central sleep apnea due to medical condition [G*INVALID FOR* Encounter Status:Closed by ANA CONTRERAS MD on 09/22/17 CNNURSE Observed: 09/16/2017 Status: COMPLETED Source: [place] 2:00 PM [facility] [place] RE[place] Nurse Visit (GASTMN) FRANNIE ROMO ([id number]) 1950 [address] [facility] Date Time Provider Department 09/16/17 2:00 PM NURSE GI LAB I GASTMN During your visit today, we recorded the following information about you: Bharath James RN, RN 09/16/2017 1:58 PM Signed Name: Frannie Romo CCF#: [id number] Date: 09/16/2017 ESOPHAGEAL MANOMETRY TEST Indication: Dysphagia Pain Assessment: No pain is present. The patient has been NPO since last evening. A local anesthetic 1 cc 2% Viscous Lidoccaine was instilled into the left nares. The patient was intubated the left nares using a 36 sensor high resolution circumferential solid state manometry catheter The esophageal manometry test was completed. The patient tolerated the test without difficulty. .Bharath James RN Referring Provider: ANA CONTRERAS [[id number]] Allergies As of Date: 09/16/2017 Noted Allergy Reaction EFFEXOR (VENLAFAXINE HCL) 01/01/2010 5 - Intolerance Comments: headaches ANTICHOLINERGICS - QUATERNARY 01/04/2003 Comments: cogentin Codiene [Other] 01/04/2003 Comments: chest pain COGENTIN (BENZTROPINE MESYLATE) 03/16/2008 Comments: Body went rigid dex rachelle [Other] 03/16/2008 Comments: Medrol dose pack: hallucinatios, diff walking KEFLEX (CEPHALEXIN) 12/18/2011 5 - Intolerance Comments: makes pt too drowsy PHENOTHIAZINES 01/04/2003 Comments: compazine-1 sided facial weakness (like stroke) ROXICET (OXYCODONE-ACETAMINOPHEN) 03/15/2010 9 - Itching Date Reviewed: 09/15/2017 Reviewed by: Winnie Salgado Ma - Fully Assessed Reason for Visit: Procedure [88] Cmt: Manometry Esophageal Visit Diagnoses:Esophageal dysphagia [R13.10] Esophageal dysmotility [K22.4] Order(s):MANOMETRY ESOPHAGEAL [[id number]] Order #: [id number] Prescriptions as of 09/16/2017 Sig: PERCOCET ORAL Take by mouth. LAMOTRIGINE 100 MG TABLET Take 1 tablet by mouth twice * ZOLPIDEM ER 12.5 MG TABLET,EX* Take 1 tablet by mouth at bed* TRAZODONE 100 MG TABLET Take 3 tablets by mouth daily* COMPOUNDED PRESCRIPTION Powerstep full length insert * OTEZLA 30 MG TABLET TRAZODONE 100 MG TABLET Take 3 tablets by mouth daily* RANITIDINE 300 MG TABLET Take 1 tablet by mouth once d* METHOCARBAMOL 750 MG TABLET Take 1 tablet by mouth three * BUTRANS 10 MCG/HOUR TRANSDERM* Apply 1 Patch as directed jose alfredo* FLUTICASONE 50 MCG/ACTUATION * Use 2 Sprays in each nostril * ARIPIPRAZOLE 5 MG TABLET Take 2 tablets by mouth once * ZOLEDRONIC ACID 5 MG/100 ML I* Inject 100 mL intravenously e* MODAFINIL 100 MG TABLET Take 1 tablet by mouth as nee* CHOLECALCIFEROL (VITAMIN D3) * Take 1 capsule by mouth once * LEVOTHYROXINE 50 MCG TABLET Take one tablet by mouth once* CPAP Mask (per patient preference)* CPAP AutoSV EPAP min= 12 cmH2O, PS* DICLOFENAC 1 % TOPICAL GEL Apply 2 g to affected area fo* COMPOUNDED PRESCRIPTION START IV OTEZLA ORAL Take 1 tablet by mouth twice * STOOL SOFTENER ORAL Take 1 tablet by mouth twice * OXYBUTYNIN CHLORIDE ER 10 MG * Take 10 mg by mouth once vashti* VITAMIN C ORAL Take 1 tablet by mouth once d* BIOTIN 10,000 MCG CAPSULE Take by mouth twice daily. COENZYME Q10 200 MG CAPSULE Take 200 mg by mouth twice da* HYDROCODONE 5 MG-ACETAMINOPHE* Take 1 tablet by mouth every * PREGABALIN 150 MG CAPSULE Take 1 capsule by mouth once * Patient taking differently: Take 150 mg by mouth twice da* MAGNESIUM ORAL Take 1 tablet by mouth twice * PROBIOTIC ORAL Take 1 capsule by mouth daily* CYANOCOBALAMIN (VIT B-12) 1,0* Take 1,000 mcg by mouth once * IRON PS COMPLEX-ASCORBIC ACID* Take 1 tablet by mouth daily * LIDOCAINE 5 % TOPICAL PATCH Apply one patch to each hip d* MULTIVITAMIN TABLET daily B COMPLEX TABLET,EXTENDED REL* Take one(1) tablet daily. More... More... Problem List As Of Date 09/16/2017 Noted Resolved Obesity, unspecified [E66.9] INVALID FOR*09/18/2012 More... More... Depressive disorder, not elsewhere classified [*INVALID FOR*10/21/2012 More... Mixed hyperlipidemia [E78.2] INVALID FOR* More... BONE AND CARTILAGE DIS NOS [M89.9, M94.9] INVALID FOR* More... Hypothyroidism [E03.9] INVALID FOR* More... Unspecified sleep apnea [G47.30] INVALID FOR*06/20/2014 More... More... Radiculopathy, lumbar region [M54.16] INVALID FOR* More... More... DISC DIS NEC/NOS-THORAC [M51.9] INVALID FOR* More... CERVICALGIA [M54.2] INVALID FOR* More... More... More... Vitamin D deficiency [E55.9] INVALID FOR* More... More... Insomnia [G47.00] 04/13/2014 Chronic insomnia [F51.04] INVALID FOR*04/13/2014 Class: Chronic More... 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 Obstructive Sleep apnea - AHI 48 [G47.33] INVALID FOR* More... Osteoporosis, unspecified [M81.0] INVALID FOR*08/09/2014 Osteoporosis [M81.0] INVALID FOR* More... Central sleep apnea in conditions classified el*INVALID FOR* DDD (degenerative disc disease), cervical [M50.*INVALID FOR* DDD (degenerative disc disease), lumbar [M51.36]INVALID FOR* Chronic pain [G89.29] INVALID FOR* Memory deficits [R41.3] INVALID FOR* Onychomycosis [B35.1] INVALID FOR* More... Psoriatic arthritis (HCC) [L40.50] INVALID FOR* Rotator cuff arthropathy, left [M12.812] INVALID FOR* Cervical radiculopathy [M54.12] INVALID FOR* Chronic bilateral low back pain with bilateral *INVALID FOR* Epigastric abdominal pain [R10.13] INVALID FOR* More... History of gastric bypass [Z98.84] INVALID FOR* More... Central sleep apnea due to medical condition [G*INVALID FOR* Encounter Status:Closed by BHARATH JAMES on 09/16/17 PROGRESS Observed: 09/16/2017 Status: COMPLETED Source: [place] 1:57 PM [facility] [place] REPOSITORY O ID: [id number] Author: Bharath (Rn) LOU James Service: (none) Author Type: Registered Nurse Type: Progress Notes Filed: 09/16/2017 1:58 PM Note Text: Name: Frannie Romo CCF#: [id number] Date: 09/16/2017 ESOPHAGEAL MANOMETRY TEST Indication: Dysphagia Pain Assessment: No pain is present. The patient has been NPO since last evening. A local anesthetic 1 cc 2% Viscous Lidoccaine was instilled into the left nares. The patient was intubated the left nares using a 36 sensor high resolution circumferential solid state manometry catheter The esophageal manometry test was completed. The patient tolerated the test without difficulty. .Bharath James RN CNOV Observed: 09/15/2017 Status: COMPLETED Source: [place] 1:00 PM [facility] [place] RE[place] Office Visit (GASTSP) FRANNIE ROMO ([id number]) 1950 F [facility] Date Time Provider Department 09/15/17 1:00 PM ANA CONTRERAS [facility] During your visit today, we recorded the following information about you: Temperature Pulse Blood pressure Weight 98.2 degrees 68/minute 99/49 47.4 kg Height 1.524 m Ana Contreras MD 09/15/2017 1:48 PM Signed Follow Up Visit There were no vitals filed for this visit. Current Medications: Current Outpatient Prescriptions: lamoTRIgine (LAMICTAL) 100 mg tablet Take 1 tablet by mouth twice daily. Disp: 60 tablet Rfl: 5 Zolpidem (AMBIEN CR) 12.5 mg CR tablet Take 1 tablet by mouth at bedtime as needed for Sedation (generic acceptable) for up to 90 days. Disp: 90 tablet Rfl: 0 traZODone (DESYREL) 100 mg tablet Take 3 tablets by mouth daily at bedtime. Disp: 270 tablet Rfl: 3 COMPOUNDED PRESCRIPTION Powerstep full length insert(M72.2) Plantar fasciitis of right foot (primary encounter diagnosis) Disp: 1 Device Rfl: 0 OTEZLA 30 mg tablet Disp: Rfl: traZODone (DESYREL) 100 mg tablet Take 3 tablets by mouth daily at bedtime. Disp: 12 tablet Rfl: 0 Ranitidine HCl (ZANTAC) 300 mg tablet Take 1 tablet by mouth once daily. Disp: 30 tablet Rfl: 1 methocarbamol (ROBAXIN) 750 mg tablet Take 1 tablet by mouth three times daily. PRN spasms and pain Disp: 50 tablet Rfl: 0 BUTRANS 10 mcg/hour Apply 1 Patch as directed every Friday for 12 days. (Dr. Lance) Disp: Rfl: fluticasone (FLONASE) 50 mcg/actuation nasal spray Use 2 Sprays in each nostril once daily. Rinse mouth after use. Disp: 1 Bottle Rfl: 0 ARIPiprazole (ABILIFY) 5 mg tablet Take 2 tablets by mouth once daily. Disp: 180 tablet Rfl: 3 zoledronic acid (RECLAST) 5 mg/100 mL pgbk PREMIX piggyback Inject 100 mL intravenously every year. Disp: 100 mL Rfl: 0 modafinil (PROVIGIL) 100 mg tablet Take 1 tablet by mouth as needed. Disp: 90 tablet Rfl: 0 cholecalciferol, Vitamin D3, (VITAMIN D3) 50,000 unit cap capsule Take 1 capsule by mouth once each week. Disp: 12 capsule Rfl: 4 levothyroxine (SYNTHROID) 50 mcg tablet Take one tablet by mouth once daily, and 1/2 tablet on Sundays. Disp: 90 tablet Rfl: 3 CPAP Mask (per patient preference) optional chin strap (if indicated), filters, tubing / heated tubing, heated humidity and lifetime supplies. Dx. JUVENAL G47.33 327.23 Disp: 1 Device Rfl: 0 CPAP AutoSV EPAP min= 12 cmH2O, PS min-max = [id number], Max pressure = 25 cmH2O, Rate =Auto, lifetime supplies, Dx: G47.33, G47.37 Disp: 1 Device Rfl: 0 diclofenac sodium (VOLTAREN) 1 % topical gel Apply 2 g to affected area four times daily. Disp: 1 Tube Rfl: 1 >IV - Start IV START IV Disp: 1 Each Rfl: 0 APREMILAST (OTEZLA ORAL) Take 1 tablet by mouth twice daily. Disp: Rfl: DOCUSATE CALCIUM (STOOL SOFTENER ORAL) Take 1 tablet by mouth twice daily. Disp: Rfl: oxybutynin XL (DITROPAN XL) 10 mg 24 hr tablet Take 10 mg by mouth once daily. Disp: Rfl: ASCORBIC ACID (VITAMIN C ORAL) Take 1 tablet by mouth once daily. Disp: Rfl: Biotin 10,000 mcg cap Take by mouth twice daily. Disp: Rfl: Coenzyme Q10 200 mg cap Take 200 mg by mouth twice daily. Disp: Rfl: HYDROcodone-acetaminophen 5-325 mg per tablet Take 1 tablet by mouth every 8 hours as needed. Disp: Rfl: pregabalin 150 mg capsule Take 1 capsule by mouth once daily. Dr Lanec (Patient taking differently: Take 150 mg by mouth twice daily. Dr Lance) Disp: Rfl: MAGNESIUM OXIDE/MAG AA CHELATE (MAGNESIUM ORAL) Take 1 tablet by mouth twice daily. Disp: Rfl: LACTOBACILLUS RHAMNOSUS GG (PROBIOTIC ORAL) Take 1 capsule by mouth daily at bedtime. Disp: Rfl: Cyanocobalamin (VITAMIN B-12) 1,000 mcg ORAL Lozg Take 1,000 mcg by mouth once daily. Disp: Rfl: FE PS CMPLX/ASCORBIC ACID (IRON PS COMPLEX-ASCORBIC ACID ORAL) Take 1 tablet by mouth daily at bedtime. Disp: Rfl: LIDOCAINE 5 % (700 MG/PATCH) ADHESIVE PATCH Apply one patch to each hip daily. Remove patch after 12 hours. as needed Disp: 180 Rfl: 1 MULTIVITAMIN TAB daily Disp: Rfl: vitamin b complex(B COMPLEX TAB) Take one(1) tablet daily. Disp: Rfl: 0 No current facility-administered medications for this visit. Follow up regarding:Dysphagia with lower chest/epigastric discomfort with previous timed barium swallow remarkable for a column of 7.5 cm at one min with clearance by 2 min. Interval Events:Timed an video barium swallows we remarkable for: IMPRESSION: SEVERE ESOPHAGEAL DYSMOTILITY. ?WIDELY PATENT GE JUNCTION, THEREFORE NOT ACHALASIA. 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 Transcribe Date/Time: Sep 11 2017 ?9:29A Dictated by : TIFFANI BELLAMY This examination was interpreted and the report reviewed and electronically signed by: ANA WILEY MD on Sep 11 2017 10:17AM ?EST Results-Findings * * *Final Report* * * DATE OF EXAM: Sep 11 2017 ?9:25AM ? HGX ? 5378 ?- ?XR ESOPHAGRAM ? / PROCEDURE REASON: multiple diagnoses ?? ? * * * * Physician Interpretation * * * * ?SINGLE CONTRAST UPPER GI SERIES INCLUDING TIMED BARIUM SWALLOW OR ACHALASIA CLINICAL INFORMATION: ?Status post gastric bypass. ?Intermittent dysphagia to solids. COMPARISON: 02/10/2014 TECHNIQUE: A signle phase examination was performed after oral ingestion of contrast material. Spot and overhead images were obtained. Contrast: ORAL: ?500 ml of EZPAQUE Fluoroscopy radiation summary: Fluoroscopy time: 3:36 (min:sec). Air kerma: 14.1 mGy. RESULT: Timed barium esophagram was performed following the oral ingestion of ? 250 ml of contrast. The height and width of the barium column are measured using the ruler within the image : One minute: 6.5 x 1.0 cm. There is complete emptying by 5 minutes. On previous exam dated 02/10/2014, there was complete emptying by 2 minutes. Video Esophagram: Structurally, the esophagus is normal. ?The esophagogastric junction is widely patent. ?There is poor propagation of the primary peristaltic wave in the mid and distal esophagus, essentially aperistaltic. ?Contrast is not well cleared by secondary swallows. ?No gastroesophageal reflux was seen. Postoperative changes of the gastric bypass. ?No dilation the gastric pouch or pouch outlet obstruction. ?Proximal small bowel loops are normal in caliber and fold pattern. RUQ U/S remarkable for: IMPRESSION: Borderline dilatation extra hepatic biliary tract and RIGHT hepatic biliary tract upper range normal caliber Nonspecific 4 mm density lower pole RIGHT kidney. Subjective: Results above as noted. Esophageal manometry performed in 2013 was remarkable for: Indications: Dysphagia LOWER ESOPHAGEAL SPHINCTER LES LOCATION: from nares Proximal LES: 41.4 - Distal LES 44.8 cm LES PRESSURE Basal (respiratory min. eSleeve): 34.3 mmHg (normal 4.8-32 mmHg) Basal (respiratory mean eSleeve): 47.9 mmHg (normal 13-43mmHg) Residual (mean, eSleeve): 4.7 mmHg (normal < 15.0 eSlv) Hiatal Hernia: No ESOPHAGEAL BODY No. Swallows Evaluated: 10 HIGH RESOLUTION PARAMETERS Distal contractile integral (mean) (mmHg-cm-s) (Normal: 500-5000): 2598.8 Contractile front velocity (cm/s) (Normal: <9.0): 2.9 Intrabolus pressure (@LESR)(mmHg): -2.1(Norm <8.4) Intrabolus pressure (av max)(mmHg): 14.8(Norm <17.0) [place] CLASSIFICATION: Distal latency: 6.8 %failed (Damon Classification): 0 %panesophageal pressurization: 0 %premature contraction: 0 %rapid contraction: 0 %large breaks: 0 %small breaks: 0 UPPER ESOPHAGEAL SPHINCTER LOCATION (center from the nares): 19.7 cm Mean Basal Pressure: 47.8 mmHg, (normal > 30-120 mmHg) FINDINGS / INTERPRETATION Findings: Elevated LES pressure with normal LES relaxation Normal peristalsis in all swallows Impressions Hypertensive LES Interpretation by: Roseanne Kirk MD ? Patient notes a history of sleep apnea and she wears a C-Pap. Patient switched from Fentanyl Patch which she had been taking for 4-5 years and now she is taking Percocet. 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 Severe possible esophageal dysmotility. Current results do not corellate with previous esophageal manometry. History of prior gastroesophageal reflux for 2 years?improved with gastric bypass ? Rule out Christensen's esophagus in the distal esophagus ? Status post Domenico-en-Y gastric bypass performed in 2009-status post 104 pounds weight loss ? History of transverse colon tubular adenoma removed in 2013 ? F/U colonoscopy in 2018. ? Remote history of a sigmoid colectomy in the ? Plan: Esophageal motility study-R/O variant of achalasia OV in 3 weeks The majority of the visit was spent counseling and/or coordinating care for the patient. Hcns-sm-aozr time was 25 minutes. Ana Contreras MD Referring Provider: SELF [[id number]] Allergies As of Date: 09/15/2017 Noted Allergy Reaction EFFEXOR (VENLAFAXINE HCL) 01/01/2010 5 - Intolerance Comments: headaches ANTICHOLINERGICS - QUATERNARY 01/04/2003 Comments: amy Dicksone [Other] 01/04/2003 Comments: chest pain AMY (BENZTROPINE MESYLATE) 03/16/2008 Comments: Body went rigid dex rachelle [Other] 03/16/2008 Comments: Medrol dose pack: hallucinatios, diff walking KEFLEX (CEPHALEXIN) 12/18/2011 5 - Intolerance Comments: makes pt too drowsy PHENOTHIAZINES 01/04/2003 Comments: compazine-1 sided facial weakness (like stroke) ROXICET (OXYCODONE-ACETAMINOPHEN) 03/15/2010 9 - Itching Date Reviewed: 09/15/2017 Reviewed by: Winnie Salgado Ma - Fully Assessed Primary Visit Diagnosis:Esophageal dysphagia [R13.10] Other Visit Diagnoses:Esophageal dysmotility [K22.4] Central sleep apnea due to medical condition [G47.37] Order(s):MANOMETRY ESOPHAGEAL [[id number]] Order #: [id number] FUTURE Prescriptions as of 09/15/2017 Sig: PERCOCET ORAL Take by mouth. LAMOTRIGINE 100 MG TABLET Take 1 tablet by mouth twice * ZOLPIDEM ER 12.5 MG TABLET,EX* Take 1 tablet by mouth at bed* TRAZODONE 100 MG TABLET Take 3 tablets by mouth daily* COMPOUNDED PRESCRIPTION Powerstep full length insert * OTEZLA 30 MG TABLET TRAZODONE 100 MG TABLET Take 3 tablets by mouth daily* RANITIDINE 300 MG TABLET Take 1 tablet by mouth once d* METHOCARBAMOL 750 MG TABLET Take 1 tablet by mouth three * ARIPIPRAZOLE 5 MG TABLET Take 2 tablets by mouth once * ZOLEDRONIC ACID 5 MG/100 ML I* Inject 100 mL intravenously e* MODAFINIL 100 MG TABLET Take 1 tablet by mouth as nee* LEVOTHYROXINE 50 MCG TABLET Take one tablet by mouth once* CPAP Mask (per patient preference)* CPAP AutoSV EPAP min= 12 cmH2O, PS* DICLOFENAC 1 % TOPICAL GEL Apply 2 g to affected area fo* COMPOUNDED PRESCRIPTION START IV OTEZLA ORAL Take 1 tablet by mouth twice * STOOL SOFTENER ORAL Take 1 tablet by mouth twice * OXYBUTYNIN CHLORIDE ER 10 MG * Take 10 mg by mouth once vashti* BIOTIN 10,000 MCG CAPSULE Take by mouth twice daily. HYDROCODONE 5 MG-ACETAMINOPHE* Take 1 tablet by mouth every * PREGABALIN 150 MG CAPSULE Take 1 capsule by mouth once * Patient taking differently: Take 150 mg by mouth twice da* MAGNESIUM ORAL Take 1 tablet by mouth twice * PROBIOTIC ORAL Take 1 capsule by mouth daily* IRON PS COMPLEX-ASCORBIC ACID* Take 1 tablet by mouth daily * LIDOCAINE 5 % TOPICAL PATCH Apply one patch to each hip d* BUTRANS 10 MCG/HOUR TRANSDERM* Apply 1 Patch as directed jose alfredo* FLUTICASONE 50 MCG/ACTUATION * Use 2 Sprays in each nostril * CHOLECALCIFEROL (VITAMIN D3) * Take 1 capsule by mouth once * VITAMIN C ORAL Take 1 tablet by mouth once d* COENZYME Q10 200 MG CAPSULE Take 200 mg by mouth twice da* CYANOCOBALAMIN (VIT B-12) 1,0* Take 1,000 mcg by mouth once * MULTIVITAMIN TABLET daily B COMPLEX TABLET,EXTENDED REL* Take one(1) tablet daily. More... More... Problem List As Of Date 09/15/2017 Noted Resolved Obesity, unspecified [E66.9] INVALID FOR*09/18/2012 More... More... Depressive disorder, not elsewhere classified [*INVALID FOR*10/21/2012 More... Mixed hyperlipidemia [E78.2] INVALID FOR* More... BONE AND CARTILAGE DIS NOS [M89.9, M94.9] INVALID FOR* More... Hypothyroidism [E03.9] INVALID FOR* More... Unspecified sleep apnea [G47.30] INVALID FOR*06/20/2014 More... More... Radiculopathy, lumbar region [M54.16] INVALID FOR* More... More... DISC DIS NEC/NOS-THORAC [M51.9] INVALID FOR* More... CERVICALGIA [M54.2] INVALID FOR* More... More... More... Vitamin D deficiency [E55.9] INVALID FOR* More... More... Insomnia [G47.00] 04/13/2014 Chronic insomnia [F51.04] INVALID FOR*04/13/2014 Class: Chronic More... 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 Obstructive Sleep apnea - AHI 48 [G47.33] INVALID FOR* More... Osteoporosis, unspecified [M81.0] INVALID FOR*08/09/2014 Osteoporosis [M81.0] INVALID FOR* More... Central sleep apnea in conditions classified el*INVALID FOR* DDD (degenerative disc disease), cervical [M50.*INVALID FOR* DDD (degenerative disc disease), lumbar [M51.36]INVALID FOR* Chronic pain [G89.29] INVALID FOR* Memory deficits [R41.3] INVALID FOR* Onychomycosis [B35.1] INVALID FOR* More... Psoriatic arthritis (HCC) [L40.50] INVALID FOR* Rotator cuff arthropathy, left [M12.812] INVALID FOR* Cervical radiculopathy [M54.12] INVALID FOR* Chronic bilateral low back pain with bilateral *INVALID FOR* Epigastric abdominal pain [R10.13] INVALID FOR* More... History of gastric bypass [Z98.84] INVALID FOR* More... Central sleep apnea due to medical condition [G*INVALID FOR* Disposition: Return in about 3 weeks (around 10/06/2017). Follow-up and Disposition History Recorded Encounter Status:Closed by ANA CONTRERAS MD on 09/15/17 PROGRESS Observed: 09/15/2017 Status: COMPLETED Source: [place] 12:54 PM [facility] [place] REPOSITORY HNO ID: [id number] Author: Ana Contreras Service: (none) Author Type: Physician Type: Progress Notes Filed: 09/15/2017 1:48 PM Note Text: Follow Up Visit There were no vitals filed for this visit. Current Medications: Current Outpatient Prescriptions: lamoTRIgine (LAMICTAL) 100 mg tablet Take 1 tablet by mouth twice daily. Disp: 60 tablet Rfl: 5 Zolpidem (AMBIEN CR) 12.5 mg CR tablet Take 1 tablet by mouth at bedtime as needed for Sedation (generic acceptable) for up to 90 days. Disp: 90 tablet Rfl: 0 traZODone (DESYREL) 100 mg tablet Take 3 tablets by mouth daily at bedtime. Disp: 270 tablet Rfl: 3 COMPOUNDED PRESCRIPTION Powerstep full length insert(M72.2) Plantar fasciitis of right foot (primary encounter diagnosis) Disp: 1 Device Rfl: 0 OTEZLA 30 mg tablet Disp: Rfl: traZODone (DESYREL) 100 mg tablet Take 3 tablets by mouth daily at bedtime. Disp: 12 tablet Rfl: 0 Ranitidine HCl (ZANTAC) 300 mg tablet Take 1 tablet by mouth once daily. Disp: 30 tablet Rfl: 1 methocarbamol (ROBAXIN) 750 mg tablet Take 1 tablet by mouth three times daily. PRN spasms and pain Disp: 50 tablet Rfl: 0 BUTRANS 10 mcg/hour Apply 1 Patch as directed every Friday for 12 days. (Dr. Lance) Disp: Rfl: fluticasone (FLONASE) 50 mcg/actuation nasal spray Use 2 Sprays in each nostril once daily. Rinse mouth after use. Disp: 1 Bottle Rfl: 0 ARIPiprazole (ABILIFY) 5 mg tablet Take 2 tablets by mouth once daily. Disp: 180 tablet Rfl: 3 zoledronic acid (RECLAST) 5 mg/100 mL pgbk PREMIX piggyback Inject 100 mL intravenously every year. Disp: 100 mL Rfl: 0 modafinil (PROVIGIL) 100 mg tablet Take 1 tablet by mouth as needed. Disp: 90 tablet Rfl: 0 cholecalciferol, Vitamin D3, (VITAMIN D3) 50,000 unit cap capsule Take 1 capsule by mouth once each week. Disp: 12 capsule Rfl: 4 levothyroxine (SYNTHROID) 50 mcg tablet Take one tablet by mouth once daily, and 1/2 tablet on Sundays. Disp: 90 tablet Rfl: 3 CPAP Mask (per patient preference) optional chin strap (if indicated), filters, tubing / heated tubing, heated humidity and lifetime supplies. Dx. JUVENAL G47.33 327.23 Disp: 1 Device Rfl: 0 CPAP AutoSV EPAP min= 12 cmH2O, PS min-max = [id number], Max pressure = 25 cmH2O, Rate =Auto, lifetime supplies, Dx: G47.33, G47.37 Disp: 1 Device Rfl: 0 diclofenac sodium (VOLTAREN) 1 % topical gel Apply 2 g to affected area four times daily. Disp: 1 Tube Rfl: 1 >IV - Start IV START IV Disp: 1 Each Rfl: 0 APREMILAST (OTEZLA ORAL) Take 1 tablet by mouth twice daily. Disp: Rfl: DOCUSATE CALCIUM (STOOL SOFTENER ORAL) Take 1 tablet by mouth twice daily. Disp: Rfl: oxybutynin XL (DITROPAN XL) 10 mg 24 hr tablet Take 10 mg by mouth once daily. Disp: Rfl: ASCORBIC ACID (VITAMIN C ORAL) Take 1 tablet by mouth once daily. Disp: Rfl: Biotin 10,000 mcg cap Take by mouth twice daily. Disp: Rfl: Coenzyme Q10 200 mg cap Take 200 mg by mouth twice daily. Disp: Rfl: HYDROcodone-acetaminophen 5-325 mg per tablet Take 1 tablet by mouth every 8 hours as needed. Disp: Rfl: pregabalin 150 mg capsule Take 1 capsule by mouth once daily. Dr Lance (Patient taking differently: Take 150 mg by mouth twice daily. Dr Lance) Disp: Rfl: MAGNESIUM OXIDE/MAG AA CHELATE (MAGNESIUM ORAL) Take 1 tablet by mouth twice daily. Disp: Rfl: LACTOBACILLUS RHAMNOSUS GG (PROBIOTIC ORAL) Take 1 capsule by mouth daily at bedtime. Disp: Rfl: Cyanocobalamin (VITAMIN B-12) 1,000 mcg ORAL Lozg Take 1,000 mcg by mouth once daily. Disp: Rfl: FE PS CMPLX/ASCORBIC ACID (IRON PS COMPLEX-ASCORBIC ACID ORAL) Take 1 tablet by mouth daily at bedtime. Disp: Rfl: LIDOCAINE 5 % (700 MG/PATCH) ADHESIVE PATCH Apply one patch to each hip daily. Remove patch after 12 hours. as needed Disp: 180 Rfl: 1 MULTIVITAMIN TAB daily Disp: Rfl: vitamin b complex(B COMPLEX TAB) Take one(1) tablet daily. Disp: Rfl: 0 No current facility-administered medications for this visit. Follow up regarding:Dysphagia with lower chest/epigastric discomfort with previous timed barium swallow remarkable for a column of 7.5 cm at one min with clearance by 2 min. Interval Events:Timed an video barium swallows we remarkable for: IMPRESSION: SEVERE ESOPHAGEAL DYSMOTILITY. ?WIDELY PATENT GE JUNCTION, THEREFORE NOT ACHALASIA. 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 Transcribe Date/Time: Sep 11 2017 ?9:29A Dictated by : TIFFANI BELLAMY This examination was interpreted and the report reviewed and electronically signed by: ANA WILEY MD on Sep 11 2017 10:17AM ?EST Results-Findings * * *Final Report* * * DATE OF EXAM: Sep 11 2017 ?9:25AM ? HGX ? 5378 ?- ?XR ESOPHAGRAM ? / PROCEDURE REASON: multiple diagnoses ?? ? * * * * Physician Interpretation * * * * ?SINGLE CONTRAST UPPER GI SERIES INCLUDING TIMED BARIUM SWALLOW OR ACHALASIA CLINICAL INFORMATION: ?Status post gastric bypass. ?Intermittent dysphagia to solids. COMPARISON: 02/10/2014 TECHNIQUE: A signle phase examination was performed after oral ingestion of contrast material. Spot and overhead images were obtained. Contrast: ORAL: ?500 ml of EZPAQUE Fluoroscopy radiation summary: Fluoroscopy time: 3:36 (min:sec). Air kerma: 14.1 mGy. RESULT: Timed barium esophagram was performed following the oral ingestion of ? 250 ml of contrast. The height and width of the barium column are measured using the ruler within the image : One minute: 6.5 x 1.0 cm. There is complete emptying by 5 minutes. On previous exam dated 02/10/2014, there was complete emptying by 2 minutes. Video Esophagram: Structurally, the esophagus is normal. ?The esophagogastric junction is widely patent. ?There is poor propagation of the primary peristaltic wave in the mid and distal esophagus, essentially aperistaltic. ?Contrast is not well cleared by secondary swallows. ?No gastroesophageal reflux was seen. Postoperative changes of the gastric bypass. ?No dilation the gastric pouch or pouch outlet obstruction. ?Proximal small bowel loops are normal in caliber and fold pattern. RUQ U/S remarkable for: IMPRESSION: Borderline dilatation extra hepatic biliary tract and RIGHT hepatic biliary tract upper range normal caliber Nonspecific 4 mm density lower pole RIGHT kidney. Subjective: Results above as noted. Esophageal manometry performed in 2013 was remarkable for: Indications: Dysphagia LOWER ESOPHAGEAL SPHINCTER LES LOCATION: from nares Proximal LES: 41.4 - Distal LES 44.8 cm LES PRESSURE Basal (respiratory min. eSleeve): 34.3 mmHg (normal 4.8-32 mmHg) Basal (respiratory mean eSleeve): 47.9 mmHg (normal 13-43mmHg) Residual (mean, eSleeve): 4.7 mmHg (normal < 15.0 eSlv) Hiatal Hernia: No ESOPHAGEAL BODY No. Swallows Evaluated: 10 HIGH RESOLUTION PARAMETERS Distal contractile integral (mean) (mmHg-cm-s) (Normal: 500-5000): 2598.8 Contractile front velocity (cm/s) (Normal: <9.0): 2.9 Intrabolus pressure (@LESR)(mmHg): -2.1(Norm <8.4) Intrabolus pressure (av max)(mmHg): 14.8(Norm <17.0) [place] CLASSIFICATION: Distal latency: 6.8 %failed (Damon Classification): 0 %panesophageal pressurization: 0 %premature contraction: 0 %rapid contraction: 0 %large breaks: 0 %small breaks: 0 UPPER ESOPHAGEAL SPHINCTER LOCATION (center from the nares): 19.7 cm Mean Basal Pressure: 47.8 mmHg, (normal > 30-120 mmHg) FINDINGS / INTERPRETATION Findings: Elevated LES pressure with normal LES relaxation Normal peristalsis in all swallows Impressions Hypertensive LES Interpretation by: Roseanne Kirk MD ? Patient notes a history of sleep apnea and she wears a C-Pap. Patient switched from Fentanyl Patch which she had been taking for 4-5 years and now she is taking Percocet. 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 Severe possible esophageal dysmotility. Current results do not corellate with previous esophageal manometry. History of prior gastroesophageal reflux for 2 years?improved with gastric bypass ? Rule out Christensen's esophagus in the distal esophagus ? Status post Domenico-en-Y gastric bypass performed in 2009-status post 104 pounds weight loss ? History of transverse colon tubular adenoma removed in 2013 ? F/U colonoscopy in 2018. ? Remote history of a sigmoid colectomy in the ? Plan: Esophageal motility study-R/O variant of achalasia OV in 3 weeks The majority of the visit was spent counseling and/or coordinating care for the patient. Jooc-kl-ngpc time was 25 minutes. Ana Contreras MD PROGRESS Observed: 09/11/2017 Status: COMPLETED Source: [place] 9:40 AM [facility] [place] RE[place] HNO ID: [id number] Author: Kimmy Vargas (Awning Finisher) Amrita [facility]/PRINTING SPECIALIST Service: (none) Author Type: Speech Language Pathologist Type: Progress Notes Filed: 09/11/2017 9:41 AM Note Text: Speech Pathology: September 11, 2017 Appointment cancelled. Incorrectly scheduled for Modified Barium Swallow study. Kimmy Murray Amrita CCC-PRINTING SPECIALIST Pager: [phone] Voicemail: [phone] XR ESOPHAGRAM Observed: 09/11/2017 Status: F Source: [place] 9:25 AM [facility] REPOSITORY * * *Final Report* * * DATE OF EXAM: Sep 11 2017 9:25AM HGX 5378 - XR ESOPHAGRAM / PROCEDURE REASON: multiple diagnoses * * * * Physician Interpretation * * * * SINGLE CONTRAST UPPER GI SERIES INCLUDING TIMED BARIUM SWALLOW OR ACHALASIA CLINICAL INFORMATION: Status post gastric bypass. Intermittent dysphagia to solids. COMPARISON: 02/10/2014 TECHNIQUE: A signle phase examination was performed after oral ingestion of contrast material. Spot and overhead images were obtained. Contrast: ORAL: 500 ml of EZPAQUE Fluoroscopy radiation summary: Fluoroscopy time: 3:36 (min:sec). Air kerma: 14.1 mGy. RESULT: Timed barium esophagram was performed following the oral ingestion of 250 ml of contrast. The height and width of the barium column are measured using the ruler within the image : One minute: 6.5 x 1.0 cm. There is complete emptying by 5 minutes. On previous exam dated 02/10/2014, there was complete emptying by 2 minutes. Video Esophagram: Structurally, the esophagus is normal. The esophagogastric junction is widely patent. There is poor propagation of the primary peristaltic wave in the mid and distal esophagus, essentially aperistaltic. Contrast is not well cleared by secondary swallows. No gastroesophageal reflux was seen. Postoperative changes of the gastric bypass. No dilation the gastric pouch or pouch outlet obstruction. Proximal small bowel loops are normal in caliber and fold pattern. The study was performed by TIFFANI Bellamy, under the supervision of Dr. Wiley, who was present for the critical portion of the exam. Images associated with this study were submitted for interpretation and reviewed by Dr. Wiley. IMPRESSION: SEVERE ESOPHAGEAL DYSMOTILITY. WIDELY PATENT GE JUNCTION, THEREFORE NOT ACHALASIA. 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Livestock: MICHAEL Transcribe Date/Time: Sep 11 2017 9:29A Dictated by : TIFFANI BELLAMY This examination was interpreted and the report reviewed and electronically signed by: ANA WILEY MD on Sep 11 2017 10:17AM EST [id number] PROGRESS Observed: 09/11/2017 Status: COMPLETED Source: [place] 9:09 AM [facility] [place] RE[place] HNO ID: [id number] Author: Varun () Faustino Robb Service: Radiology Author Type: Classification Clerk Type: Progress Notes Filed: 09/11/2017 9:09 AM Note Text: Radiology Service Progress Note PATIENT NAME: Frannie Romo DATE OF SERVICE: September 11, 2017 TIME: 9:09 AM PATIENT IDENTITY VERIFICATION COMPLETED USING TWO (2) METHODS: Patient confirmed name verbally and Date of . PATIENT GENDER DATA: Female. status: : No status: NO. PATIENT RELEVANT IMPLANT DATA REVIEWED: Not Applicable RADIOLOGY DEPARTMENT: General X-ray: Exam(s) Completed: GI/ Procedure(s): Esophogram with barium contrast PERIPHERAL IV DATA: Not applicable SIGNED BY: RT Dewey September 11, 2017 9:09 AM CNOV Observed: 09/11/2017 Status: COMPLETED Source: [place] 8:40 AM [facility] [place] RE[place]IT[place] Office Visit (TALKHB) CLARISSAFRANNIE ANDREWS ([id number]) 1950 F [place] Date Time Provider Department 09/11/17 8:40 AM KIMMY CROWE (PRINTING SPECIALIST) TALKHB During your visit today, we recorded the following information about you: Kimmy Crowe CCC-LENIN, ILEANA/PRINTING SPECIALIST 09/11/2017 9:41 AM Signed Speech Pathology: September 11, 2017 Appointment cancelled. Incorrectly scheduled for Modified Barium Swallow study. Kimmy Crowe MS, CCC-PRINTING SPECIALIST Pager: [phone] Voicemail: [phone] Referring Provider: ANA CONTRERAS [[id number]] Allergies As of Date: 09/11/2017 Noted Allergy Reaction EFFEXOR (VENLAFAXINE HCL) 01/01/2010 5 - Intolerance Comments: headaches ANTICHOLINERGICS - QUATERNARY 01/04/2003 Comments: cogentin Codiene [Other] 01/04/2003 Comments: chest pain COGENTIN (BENZTROPINE MESYLATE) 03/16/2008 Comments: Body went rigid dex rachelle [Other] 03/16/2008 Comments: Medrol dose pack: hallucinatios, diff walking KEFLEX (CEPHALEXIN) 12/18/2011 5 - Intolerance Comments: makes pt too drowsy PHENOTHIAZINES 01/04/2003 Comments: compazine-1 sided facial weakness (like stroke) ROXICET (OXYCODONE-ACETAMINOPHEN) 03/15/2010 9 - Itching Date Reviewed: 09/08/2017 Reviewed by: Mignon Jimenez Ma - Fully Assessed Primary Visit Diagnosis:APPOINTMENT CANCELLED Other Visit Diagnoses:Esophageal dysphagia [R13.10] Epigastric abdominal pain [R10.13] Order(s):XR ESOPHAGRAM [[id number]] Order #: [id number]. #:[id number] Prescriptions as of 09/11/2017 Sig: LAMOTRIGINE 100 MG TABLET Take 1 tablet by mouth twice * ZOLPIDEM ER 12.5 MG TABLET,EX* Take 1 tablet by mouth at bed* TRAZODONE 100 MG TABLET Take 3 tablets by mouth daily* COMPOUNDED PRESCRIPTION Powerstep full length insert * OTEZLA 30 MG TABLET TRAZODONE 100 MG TABLET Take 3 tablets by mouth daily* RANITIDINE 300 MG TABLET Take 1 tablet by mouth once d* METHOCARBAMOL 750 MG TABLET Take 1 tablet by mouth three * BUTRANS 10 MCG/HOUR TRANSDERM* Apply 1 Patch as directed jose alfredo* FLUTICASONE 50 MCG/ACTUATION * Use 2 Sprays in each nostril * ARIPIPRAZOLE 5 MG TABLET Take 2 tablets by mouth once * ZOLEDRONIC ACID 5 MG/100 ML I* Inject 100 mL intravenously e* MODAFINIL 100 MG TABLET Take 1 tablet by mouth as nee* CHOLECALCIFEROL (VITAMIN D3) * Take 1 capsule by mouth once * LEVOTHYROXINE 50 MCG TABLET Take one tablet by mouth once* CPAP Mask (per patient preference)* CPAP AutoSV EPAP min= 12 cmH2O, PS* DICLOFENAC 1 % TOPICAL GEL Apply 2 g to affected area fo* COMPOUNDED PRESCRIPTION START IV OTEZLA ORAL Take 1 tablet by mouth twice * STOOL SOFTENER ORAL Take 1 tablet by mouth twice * OXYBUTYNIN CHLORIDE ER 10 MG * Take 10 mg by mouth once vashti* VITAMIN C ORAL Take 1 tablet by mouth once d* BIOTIN 10,000 MCG CAPSULE Take by mouth twice daily. COENZYME Q10 200 MG CAPSULE Take 200 mg by mouth twice da* HYDROCODONE 5 MG-ACETAMINOPHE* Take 1 tablet by mouth every * PREGABALIN 150 MG CAPSULE Take 1 capsule by mouth once * Patient taking differently: Take 150 mg by mouth twice da* MAGNESIUM ORAL Take 1 tablet by mouth twice * PROBIOTIC ORAL Take 1 capsule by mouth daily* CYANOCOBALAMIN (VIT B-12) 1,0* Take 1,000 mcg by mouth once * IRON PS COMPLEX-ASCORBIC ACID* Take 1 tablet by mouth daily * LIDOCAINE 5 % TOPICAL PATCH Apply one patch to each hip d* MULTIVITAMIN TABLET daily B COMPLEX TABLET,EXTENDED REL* Take one(1) tablet daily. More... More... Problem List As Of Date 09/11/2017 Noted Resolved Obesity, unspecified [E66.9] INVALID FOR*09/18/2012 More... More... Depressive disorder, not elsewhere classified [*INVALID FOR*10/21/2012 More... Mixed hyperlipidemia [E78.2] INVALID FOR* More... BONE AND CARTILAGE DIS NOS [M89.9, M94.9] INVALID FOR* More... Hypothyroidism [E03.9] INVALID FOR* More... Unspecified sleep apnea [G47.30] INVALID FOR*06/20/2014 More... More... Radiculopathy, lumbar region [M54.16] INVALID FOR* More... More... DISC DIS NEC/NOS-THORAC [M51.9] INVALID FOR* More... CERVICALGIA [M54.2] INVALID FOR* More... More... More... Vitamin D deficiency [E55.9] INVALID FOR* More... More... Insomnia [G47.00] 04/13/2014 Chronic insomnia [F51.04] INVALID FOR*04/13/2014 Class: Chronic More... 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 Obstructive Sleep apnea - AHI 48 [G47.33] INVALID FOR* More... Osteoporosis, unspecified [M81.0] INVALID FOR*08/09/2014 Osteoporosis [M81.0] INVALID FOR* More... Central sleep apnea in conditions classified el*INVALID FOR* DDD (degenerative disc disease), cervical [M50.*INVALID FOR* DDD (degenerative disc disease), lumbar [M51.36]INVALID FOR* Chronic pain [G89.29] INVALID FOR* Memory deficits [R41.3] INVALID FOR* Onychomycosis [B35.1] INVALID FOR* More... Psoriatic arthritis (HCC) [L40.50] INVALID FOR* Rotator cuff arthropathy, left [M12.812] INVALID FOR* Cervical radiculopathy [M54.12] INVALID FOR* Chronic bilateral low back pain with bilateral *INVALID FOR* Epigastric abdominal pain [R10.13] INVALID FOR* More... History of gastric bypass [Z98.84] INVALID FOR* More... Central sleep apnea due to medical condition [G*INVALID FOR* Encounter Status:Closed by AMRITA TEJEDA-KIMMY PHELPS on 09/11/17 PROGRESS Observed: 09/10/2017 Status: COMPLETED Source: [place] 1:24 PM [facility] [place] REPOSITORY HNO ID: [id number] Author: Ofelia Car Service: (none) Author Type: Physician Type: Progress Notes Filed: 09/14/2017 7:10 PM Note Text: [facility] Follow-up/Established patient visit Reason for Visit at [place] : periodic review. Time Out: 1:37 Time In: 1:17 For this visit, a total bfct-do-pdfd time with the patient comprised 20 minutes, with at least 50% of that time devoted to kzoi-zt-oshr counseling and coordination of care, with especial emphasis placed on answering the patient?s and/or family?s questions in a form that they can understand and appreciate. Relevant Medications, allergies, hx Reviewed: yes Date of last visit: 03/12/17 Insurance: Medicare Home Location: [place] Psychological/Psychiatric Developments: No new Medical and Neurological Developments: Had a change in meds, and pain has increased. A contributant to the worsening sleep quality Insomnia: up after a few hours, then light sleep. RLS: no Other: the ASV machine's humidfier apparently has broken. SLEEP-WAKE SCHEDULE Bedtime: staying up till usu about 1 or 2 am. SLEEP LATENCY: no, because taking the ambien. Wake after Sleep Onset up after 2 hours. Then gets only intermittent light sleep. Wake time: betw 9 and 11, On weekends, she maintains the same sleep schedule. Sleep Quality: pretty poor She does not take naps. Average total sleep time (in a 24 hour period): 3 or 4 at the most. hours. Obstructive Sleep Apnea Issues: Most Recent Apnea-Hypopnea Index: 48 PAP Pressure Setting(s) ASV DME Company: [facility] Mask Type: FFM Lisha view Mask Issues: Only dryingess Download Report: na Self-Reported Compliance: Tries all night, but difficulty if she cannot go back to slee Benefit: yes ALLERGIES Allergen Reactions - Effexor [Venlafaxin* Intolerance headaches - Anticholinergics - * cogentin - Codiene [Other] chest pain - Cogentin [Benztropi* Body went rigid - Dex Rachelle [Other] Medrol dose pack: hallucinatios, diff walking - Keflex [Cephalexin] Intolerance makes pt too drowsy - Phenothiazines compazine-1 sided facial weakness (like stroke) - Roxicet [Oxycodone-* Itching CURRENT MEDICATIONS: COMPOUNDED PRESCRIPTION Powerstep full length insert(M72.2) Plantar fasciitis of right foot (primary encounter diagnosis) OTEZLA 30 mg tablet traZODone (DESYREL) 100 mg tablet Take 3 tablets by mouth daily at bedtime. Ranitidine HCl (ZANTAC) 300 mg tablet Take 1 tablet by mouth once daily. methocarbamol (ROBAXIN) 750 mg tablet Take 1 tablet by mouth three times daily. PRN spasms and pain Zolpidem (AMBIEN CR) 12.5 mg CR tablet Take 1 tablet by mouth at bedtime as needed for Sedation (generic acceptable) for up to 7 days. lamoTRIgine (LAMICTAL) 100 mg tablet Take 1 tablet by mouth twice daily. BUTRANS 10 mcg/hour Apply 1 Patch as directed every Friday for 12 days. (Dr. Lance) fluticasone (FLONASE) 50 mcg/actuation nasal spray Use 2 Sprays in each nostril once daily. Rinse mouth after use. ARIPiprazole (ABILIFY) 5 mg tablet Take 2 tablets by mouth once daily. zoledronic acid (RECLAST) 5 mg/100 mL pgbk PREMIX piggyback Inject 100 mL intravenously every year. modafinil (PROVIGIL) 100 mg tablet Take 1 tablet by mouth as needed. cholecalciferol, Vitamin D3, (VITAMIN D3) 50,000 unit cap capsule Take 1 capsule by mouth once each week. levothyroxine (SYNTHROID) 50 mcg tablet Take one tablet by mouth once daily, and 1/2 tablet on Sundays. CPAP Mask (per patient preference) optional chin strap (if indicated), filters, tubing / heated tubing, heated humidity and lifetime supplies. Dx. JUVENAL G47.33 327.23 CPAP AutoSV EPAP min= 12 cmH2O, PS min-max = [id number], Max pressure = 25 cmH2O, Rate =Auto, lifetime supplies, Dx: G47.33, G47.37 diclofenac sodium (VOLTAREN) 1 % topical gel Apply 2 g to affected area four times daily. >IV - Start IV START IV APREMILAST (OTEZLA ORAL) Take 1 tablet by mouth twice daily. DOCUSATE CALCIUM (STOOL SOFTENER ORAL) Take 1 tablet by mouth twice daily. oxybutynin XL (DITROPAN XL) 10 mg 24 hr tablet Take 10 mg by mouth once daily. ASCORBIC ACID (VITAMIN C ORAL) Take 1 tablet by mouth once daily. Biotin 10,000 mcg cap Take by mouth twice daily. Coenzyme Q10 200 mg cap Take 200 mg by mouth twice daily. HYDROcodone-acetaminophen 5-325 mg per tablet Take 1 tablet by mouth every 8 hours as needed. pregabalin 150 mg capsule Take 1 capsule by mouth once daily. Dr Lance MAGNESIUM OXIDE/MAG AA CHELATE (MAGNESIUM ORAL) Take 1 tablet by mouth twice daily. LACTOBACILLUS RHAMNOSUS GG (PROBIOTIC ORAL) Take 1 capsule by mouth daily at bedtime. Cyanocobalamin (VITAMIN B-12) 1,000 mcg ORAL Lozg Take 1,000 mcg by mouth once daily. FE PS CMPLX/ASCORBIC ACID (IRON PS COMPLEX-ASCORBIC ACID ORAL) Take 1 tablet by mouth daily at bedtime. LIDOCAINE 5 % (700 MG/PATCH) ADHESIVE PATCH Apply one patch to each hip daily. Remove patch after 12 hours. as needed MULTIVITAMIN TAB daily vitamin b complex(B COMPLEX TAB) Take one(1) tablet daily. Vital signs: BP 101/66 (BP Site: Right Arm, BP Position: Sitting, BP Cuff Size: Regular Adult) Pulse 79 Resp 16 Wt 47.7 kg (105 lb 3.2 oz) BMI 20.12 kg/m? MENTAL STATUS General appearance: well groomed, thin Grooming good Orientation: Ox3 Memory: Grossly intact Kinetics: slower Eye Contact: good Demeanor conversational Speech: normal Thought Stream logical Thought Content about issues Mood: mostly, will go down in mood on rainy days. Affect: Some reactivity, tired. Suicidal Ideation: no Homocidal Ideation: No Psychosis no Insight good Judgment good ENT : na Abdomen: normal Neuro: Gait and station competent. , Strength grossly normal in all extremities. Coordination grossly intact. No tremors noted. Sleep Disorder Dx Impression: Obstructive sleep apnea - with Central apnea - As compliant as she can be. Psychophysiological insomnia Other Conditioning Diagnoses: Major depression. Case Formulation / [place] (may include pt's hopes, fears, expectations, concerns): The medicines that we have been using have been very beneficial, so should not change unless there is a good reason. The issue with the ASV machine's humidifier drying out is a problem. But should be resolvable. She may have some elements of winter depression/light-dependency of mood. Actions taken: Motivational Interviewing aspects taken Working through problem list OARRS Aspect: OARRS website checked and validated. All prescriptions have been APPROPRIATELY filled. No suspicious activity was identified.- 09/10/2017 by Ofelia Moul, MD Renewed lamictal, trazodone, and zolpidem. Recommended looking into the [place] box for light therapy related to helping mood on dark days. Plan: Continue present regimen for now. Look at download Pt to get ASV humidity repaired. Follow up in November, as already scheduled. . Ofelia Car MD CNOV Observed: 09/10/2017 Status: COMPLETED Source: [place] 1:00 PM [facility] [place] RE[place] Office Visit (NEMAMMON) FRANNIE ROMO ([id number]) 1950 F [place] Date Time Provider Department 09/10/17 1:00 PM OFELIA CAR During your visit today, we recorded the following information about you: Pulse Respiration Blood pressure Weight 79/minute 16/minute 101/66 47.7 kg Ofelia Car MD 09/14/2017 7:10 PM Signed [facility] Follow-up/Established patient visit Reason for Visit at [place] : periodic review. Time Out: 1:37 Time In: 1:17 For this visit, a total gzbn-zg-ccse time with the patient comprised 20 minutes, with at least 50% of that time devoted to uixk-kr-nzju counseling and coordination of care, with especial emphasis placed on answering the patient?s and/or family?s questions in a form that they can understand and appreciate. Relevant Medications, allergies, hx Reviewed: yes Date of last visit: 03/12/17 Insurance: Medicare Home Location: [place] Psychological/Psychiatric Developments: No new Medical and Neurological Developments: Had a change in meds, and pain has increased. A contributant to the worsening sleep quality Insomnia: up after a few hours, then light sleep. RLS: no Other: the ASV machine's humidfier apparently has broken. SLEEP-WAKE SCHEDULE Bedtime: staying up till usu about 1 or 2 am. SLEEP LATENCY: no, because taking the ambien. Wake after Sleep Onset up after 2 hours. Then gets only intermittent light sleep. Wake time: betw 9 and 11, On weekends, she maintains the same sleep schedule. Sleep Quality: pretty poor She does not take naps. Average total sleep time (in a 24 hour period): 3 or 4 at the most. hours. Obstructive Sleep Apnea Issues: Most Recent Apnea-Hypopnea Index: 48 PAP Pressure Setting(s) ASV DME Company: [facility] Mask Type: FFM Lisha view Mask Issues: Only dryingess Download Report: na Self-Reported Compliance: Tries all night, but difficulty if she cannot go back to slee Benefit: yes ALLERGIES Allergen Reactions - Effexor [Venlafaxin* Intolerance headaches - Anticholinergics - * cogentin - Codiene [Other] chest pain - Cogentin [Benztropi* Body went rigid - Dex Rachelle [Other] Medrol dose pack: hallucinatios, diff walking - Keflex [Cephalexin] Intolerance makes pt too drowsy - Phenothiazines compazine-1 sided facial weakness (like stroke) - Roxicet [Oxycodone-* Itching CURRENT MEDICATIONS: COMPOUNDED PRESCRIPTION Powerstep full length insert(M72.2) Plantar fasciitis of right foot (primary encounter diagnosis) OTEZLA 30 mg tablet traZODone (DESYREL) 100 mg tablet Take 3 tablets by mouth daily at bedtime. Ranitidine HCl (ZANTAC) 300 mg tablet Take 1 tablet by mouth once daily. methocarbamol (ROBAXIN) 750 mg tablet Take 1 tablet by mouth three times daily. PRN spasms and pain Zolpidem (AMBIEN CR) 12.5 mg CR tablet Take 1 tablet by mouth at bedtime as needed for Sedation (generic acceptable) for up to 7 days. lamoTRIgine (LAMICTAL) 100 mg tablet Take 1 tablet by mouth twice daily. BUTRANS 10 mcg/hour Apply 1 Patch as directed every Friday for 12 days. (Dr. Lance) fluticasone (FLONASE) 50 mcg/actuation nasal spray Use 2 Sprays in each nostril once daily. Rinse mouth after use. ARIPiprazole (ABILIFY) 5 mg tablet Take 2 tablets by mouth once daily. zoledronic acid (RECLAST) 5 mg/100 mL pgbk PREMIX piggyback Inject 100 mL intravenously every year. modafinil (PROVIGIL) 100 mg tablet Take 1 tablet by mouth as needed. cholecalciferol, Vitamin D3, (VITAMIN D3) 50,000 unit cap capsule Take 1 capsule by mouth once each week. levothyroxine (SYNTHROID) 50 mcg tablet Take one tablet by mouth once daily, and 1/2 tablet on Sundays. CPAP Mask (per patient preference) optional chin strap (if indicated), filters, tubing / heated tubing, heated humidity and lifetime supplies. Dx. JUVENAL G47.33 327.23 CPAP AutoSV EPAP min= 12 cmH2O, PS min-max = [id number], Max pressure = 25 cmH2O, Rate =Auto, lifetime supplies, Dx: G47.33, G47.37 diclofenac sodium (VOLTAREN) 1 % topical gel Apply 2 g to affected area four times daily. >IV - Start IV START IV APREMILAST (OTEZLA ORAL) Take 1 tablet by mouth twice daily. DOCUSATE CALCIUM (STOOL SOFTENER ORAL) Take 1 tablet by mouth twice daily. oxybutynin XL (DITROPAN XL) 10 mg 24 hr tablet Take 10 mg by mouth once daily. ASCORBIC ACID (VITAMIN C ORAL) Take 1 tablet by mouth once daily. Biotin 10,000 mcg cap Take by mouth twice daily. Coenzyme Q10 200 mg cap Take 200 mg by mouth twice daily. HYDROcodone-acetaminophen 5-325 mg per tablet Take 1 tablet by mouth every 8 hours as needed. pregabalin 150 mg capsule Take 1 capsule by mouth once daily. Dr Lance MAGNESIUM OXIDE/MAG AA CHELATE (MAGNESIUM ORAL) Take 1 tablet by mouth twice daily. LACTOBACILLUS RHAMNOSUS GG (PROBIOTIC ORAL) Take 1 capsule by mouth daily at bedtime. Cyanocobalamin (VITAMIN B-12) 1,000 mcg ORAL Lozg Take 1,000 mcg by mouth once daily. FE PS CMPLX/ASCORBIC ACID (IRON PS COMPLEX-ASCORBIC ACID ORAL) Take 1 tablet by mouth daily at bedtime. LIDOCAINE 5 % (700 MG/PATCH) ADHESIVE PATCH Apply one patch to each hip daily. Remove patch after 12 hours. as needed MULTIVITAMIN TAB daily vitamin b complex(B COMPLEX TAB) Take one(1) tablet daily. Vital signs: BP 101/66 (BP Site: Right Arm, BP Position: Sitting, BP Cuff Size: Regular Adult) Pulse 79 Resp 16 Wt 47.7 kg (105 lb 3.2 oz) BMI 20.12 kg/m? MENTAL STATUS General appearance: well groomed, thin Grooming good Orientation: Ox3 Memory: Grossly intact Kinetics: slower Eye Contact: good Demeanor conversational Speech: normal Thought Stream logical Thought Content about issues Mood: mostly, will go down in mood on rainy days. Affect: Some reactivity, tired. Suicidal Ideation: no Homocidal Ideation: No Psychosis no Insight good Judgment good ENT : na Abdomen: normal Neuro: Gait and station competent. , Strength grossly normal in all extremities. Coordination grossly intact. No tremors noted. Sleep Disorder Dx Impression: Obstructive sleep apnea - with Central apnea - As compliant as she can be. Psychophysiological insomnia Other Conditioning Diagnoses: Major depression. Case Formulation / [place] (may include pt's hopes, fears, expectations, concerns): The medicines that we have been using have been very beneficial, so should not change unless there is a good reason. The issue with the ASV machine's humidifier drying out is a problem. But should be resolvable. She may have some elements of winter depression/light-dependency of mood. Actions taken: Motivational Interviewing aspects taken Working through problem list OARRS Aspect: OARRS website checked and validated. All prescriptions have been APPROPRIATELY filled. No suspicious activity was identified.- 09/10/2017 by Ofelia Car MD Renewed lamictal, trazodone, and zolpidem. Recommended looking into the Verilux box for light therapy related to helping mood on dark days. Plan: Continue present regimen for now. Look at download Pt to get ASV humidity repaired. Follow up in November, as already scheduled. . MD Ofelia Calvo MD 09/10/2017 1:38 PM Signed Consider VERILUX light box Referring Provider: OFELIA CAR [[id number]] Allergies As of Date: 09/10/2017 Noted Allergy Reaction EFFEXOR (VENLAFAXINE HCL) 01/01/2010 5 - Intolerance Comments: headaches ANTICHOLINERGICS - QUATERNARY 01/04/2003 Comments: cogentin Codiene [Other] 01/04/2003 Comments: chest pain COGENTIN (BENZTROPINE MESYLATE) 03/16/2008 Comments: Body went rigid dex rachelle [Other] 03/16/2008 Comments: Medrol dose pack: hallucinatios, diff walking KEFLEX (CEPHALEXIN) 12/18/2011 5 - Intolerance Comments: makes pt too drowsy PHENOTHIAZINES 01/04/2003 Comments: compazine-1 sided facial weakness (like stroke) ROXICET (OXYCODONE-ACETAMINOPHEN) 03/15/2010 9 - Itching Date Reviewed: 09/08/2017 Reviewed by: Mignon Jimenez Ma - Fully Assessed Reason for Visit: Established Patient [175] Primary Visit Diagnosis:Chronic bilateral low back pain with bilateral sciatica [M54.42, M54.41, G89.29] Other Visit Diagnoses:Psychophysiological insomnia [F51.04] Central sleep apnea due to medical condition [G47.37] Recurrent major depressive disorder, in partial remission (HCC) [F33.41] History of gastric bypass [Z98.84] Order(s):lamoTRIgine (LAMICTAL) 100 mg tabletTake 1 tablet by mouth twice daily.Disp: 60 tabletRfl: 5 Zolpidem (AMBIEN CR) 12.5 mg CR tabletTake 1 tablet by mouth at bedtime as needed for Sedation (generic acceptable) for up to 90 days.Disp: 90 tabletRfl: 0 traZODone (DESYREL) 100 mg tabletTake 3 tablets by mouth daily at bedtime.Disp: 270 tabletRfl: 3 Prescriptions as of 09/10/2017 Sig: LAMOTRIGINE 100 MG TABLET Take 1 tablet by mouth twice * ZOLPIDEM ER 12.5 MG TABLET,EX* Take 1 tablet by mouth at bed* TRAZODONE 100 MG TABLET Take 3 tablets by mouth daily* COMPOUNDED PRESCRIPTION Powerstep full length insert * OTEZLA 30 MG TABLET TRAZODONE 100 MG TABLET Take 3 tablets by mouth daily* RANITIDINE 300 MG TABLET Take 1 tablet by mouth once d* METHOCARBAMOL 750 MG TABLET Take 1 tablet by mouth three * BUTRANS 10 MCG/HOUR TRANSDERM* Apply 1 Patch as directed jose alfredo* FLUTICASONE 50 MCG/ACTUATION * Use 2 Sprays in each nostril * ARIPIPRAZOLE 5 MG TABLET Take 2 tablets by mouth once * ZOLEDRONIC ACID 5 MG/100 ML I* Inject 100 mL intravenously e* MODAFINIL 100 MG TABLET Take 1 tablet by mouth as nee* CHOLECALCIFEROL (VITAMIN D3) * Take 1 capsule by mouth once * LEVOTHYROXINE 50 MCG TABLET Take one tablet by mouth once* CPAP Mask (per patient preference)* CPAP AutoSV EPAP min= 12 cmH2O, PS* DICLOFENAC 1 % TOPICAL GEL Apply 2 g to affected area fo* COMPOUNDED PRESCRIPTION START IV OTEZLA ORAL Take 1 tablet by mouth twice * STOOL SOFTENER ORAL Take 1 tablet by mouth twice * OXYBUTYNIN CHLORIDE ER 10 MG * Take 10 mg by mouth once vashti* VITAMIN C ORAL Take 1 tablet by mouth once d* BIOTIN 10,000 MCG CAPSULE Take by mouth twice daily. COENZYME Q10 200 MG CAPSULE Take 200 mg by mouth twice da* HYDROCODONE 5 MG-ACETAMINOPHE* Take 1 tablet by mouth every * PREGABALIN 150 MG CAPSULE Take 1 capsule by mouth once * Patient taking differently: Take 150 mg by mouth twice da* MAGNESIUM ORAL Take 1 tablet by mouth twice * PROBIOTIC ORAL Take 1 capsule by mouth daily* CYANOCOBALAMIN (VIT B-12) 1,0* Take 1,000 mcg by mouth once * IRON PS COMPLEX-ASCORBIC ACID* Take 1 tablet by mouth daily * LIDOCAINE 5 % TOPICAL PATCH Apply one patch to each hip d* MULTIVITAMIN TABLET daily B COMPLEX TABLET,EXTENDED REL* Take one(1) tablet daily. More... More... Problem List As Of Date 09/10/2017 Noted Resolved Obesity, unspecified [E66.9] INVALID FOR*09/18/2012 More... More... Depressive disorder, not elsewhere classified [*INVALID FOR*10/21/2012 More... Mixed hyperlipidemia [E78.2] INVALID FOR* More... BONE AND CARTILAGE DIS NOS [M89.9, M94.9] INVALID FOR* More... Hypothyroidism [E03.9] INVALID FOR* More... Unspecified sleep apnea [G47.30] INVALID FOR*06/20/2014 More... More... Radiculopathy, lumbar region [M54.16] INVALID FOR* More... More... DISC DIS NEC/NOS-THORAC [M51.9] INVALID FOR* More... CERVICALGIA [M54.2] INVALID FOR* More... More... More... Vitamin D deficiency [E55.9] INVALID FOR* More... More... Insomnia [G47.00] 04/13/2014 Chronic insomnia [F51.04] INVALID FOR*04/13/2014 Class: Chronic More... 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 Obstructive Sleep apnea - AHI 48 [G47.33] INVALID FOR* More... Osteoporosis, unspecified [M81.0] INVALID FOR*08/09/2014 Osteoporosis [M81.0] INVALID FOR* More... Central sleep apnea in conditions classified el*INVALID FOR* DDD (degenerative disc disease), cervical [M50.*INVALID FOR* DDD (degenerative disc disease), lumbar [M51.36]INVALID FOR* Chronic pain [G89.29] INVALID FOR* Memory deficits [R41.3] INVALID FOR* Onychomycosis [B35.1] INVALID FOR* More... Psoriatic arthritis (HCC) [L40.50] INVALID FOR* Rotator cuff arthropathy, left [M12.812] INVALID FOR* Cervical radiculopathy [M54.12] INVALID FOR* Chronic bilateral low back pain with bilateral *INVALID FOR* Epigastric abdominal pain [R10.13] INVALID FOR* More... History of gastric bypass [Z98.84] INVALID FOR* More... Central sleep apnea due to medical condition [G*INVALID FOR* Other instructions from your clinician: Consider VERILUX light box Prescriptions ordered this encounter Disp Refills Start End LAMOTRIGINE 100 MG TABLET 60 t* 5 09/10/2017 Route: ORAL Sig: Take 1 tablet by mouth twice daily. ZOLPIDEM ER 12.5 MG TABLET,EXTENDED * 90 t* 0 09/10/2017 12/09/2017 Class: Print RX Route: ORAL Sig: Take 1 tablet by mouth at bedtime as needed for Sedation (generic acceptable) for up to 90 days. TRAZODONE 100 MG TABLET 270 * 3 09/10/2017 Route: ORAL Sig: Take 3 tablets by mouth daily at bedtime. Medications Discontinued During This Encounter lamoTRIgine (LAMICTAL) 100 mg tablet 60 t* 5 05/23/2017 09/10/2017 Route: ORAL Sig: Take 1 tablet by mouth twice daily. Disc: Reason for discontinue is not on file. Zolpidem (AMBIEN CR) 12.5 mg CR tabl* 7 ta* 0 06/19/2017 09/10/2017 Class: Print RX Route: ORAL Sig: Take 1 tablet by mouth at bedtime as needed for Sedation (generic acceptable) for up to 7 days. Disc: Reason for discontinue is not on file. Follow-up and Disposition History Recorded Encounter Status:Closed by MD OFELIA CAR on 09/14/17 US ABD RIGHT UPPER Observed: 09/09/2017 Status: F Source: [facility] 11:17 AM [facility] [place] REPOSITORY * * *Final Report* * * DATE OF EXAM: Sep 09 2017 11:17AM U 1032 - US ABD RIGHT UPPER QUADRANT / PROCEDURE REASON: multiple diagnoses * * * * Physician Interpretation * * * * EXAMINATION: RIGHT UPPER QUADRANT ULTRASOUND CLINICAL HISTORY: Epigastric pain. Cholecystectomy. Gastric bypass. TECHNIQUE: Sonography of the right upper quadrant was performed. Images were obtained and stored in a permanent archive. MQ: [id number] COMPARISON: None. RESULT: Pancreas: Normal sonographic appearance. Portions obscured: tail Liver: Echotexture: Normal, homogeneous. Echogenicity: Normal Surface contour: Smooth Lesions: None. Biliary: Right hepatic biliary tract upper range normal. CBD: 0.7 cm at the hilum. Borderline dilated Gallbladder: Absent Right Kidney: No hydronephrosis. Nonshadowing hyperintensity in lower pole cortex, 4 mm in length Ascites: None. IMPRESSION: Borderline dilatation extra hepatic biliary tract and RIGHT hepatic biliary tract upper range normal caliber Nonspecific 4 mm density lower pole RIGHT kidney. 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[employer]: [employer] Transcribe Date/Time: Sep 09 2017 2:59P Dictated by : MAURI CANALES MD This examination was interpreted and the report reviewed and electronically signed by: MAURI CANALES MD on Sep 09 2017 3:03PM EST [id number] PROGRESS Observed: 09/09/2017 Status: COMPLETED Source: [place] 10:51 AM [facility] [place] REPOSITORY HNO ID: [id number] Author: Saloni Moncada Rdms Service: (none) Author Type: (none) Type: Progress Notes Filed: 09/09/2017 11:17 AM Note Text: Radiology Service Progress Note PATIENT NAME: Frannie Romo DATE OF SERVICE: September 09, 2017 TIME: 10:51 AM PATIENT IDENTITY VERIFICATION COMPLETED USING TWO (2) METHODS: Patient confirmed name verbally and Date of . PATIENT GENDER DATA: Female. status: : No status: NO. PATIENT RELEVANT IMPLANT DATA REVIEWED: Not Applicable RADIOLOGY DEPARTMENT: Ultrasound PERIPHERAL IV DATA: Not applicable SIGNED BY: Saloni Moncada Rdms September 09, 2017 10:51 AM PROGRESS Observed: 09/08/2017 Status: COMPLETED Source: [place] 11:53 AM [facility] [place] REPOSITORY HNO ID: [id number] Author: Randolph Mckeon Service: (none) Author Type: Physician Type: Progress Notes Filed: 09/08/2017 12:40 PM Note Text: ? Randolph Mckeon DPM Department of Podiatry [address] [place] [id number] Dept: [phone] Dept 09/08/2017 Follow Up Podiatric Office Visit: HPI: Frannie Romo is a 67 year old female. Patient presents for heel pain, R x1 month. Patient states that she has no pain today. About 1 month ago she was having R heel pain that was severe and causing her to walk on her toes. Has been babying at home and pain has subsided. She states that the heel pain is not as bad now. Patient has been resting her foot more. She has been applying voltaren gel to her heel and that has helped. Patient has XR to review. Physical Exam: Constitutional: Pt is a well developed 67 year old female who is alert, oriented and cooperative Eyes: Following during examination. No redness or drainage. Respiratory: RR normal and nonlabored. Even breathing. No evidence of distress or shortness of breath. Psychology: Patient is engaged during conversation. Normal affect and mood. Does not appear depressed or anxious during encounter. Vascular: Dorsalis pedis and posterior tibial pulses palpable as b/l Capillary Fill time < 5 seconds to digits 1-5 b/l Skin temperature warm to warm proximal to distal b/l Hair growth present to digits Neurological: intact light touch/epicritic sensation - tinel b/l Dermatological: Skin appears well hydrated and supple. good color, texture, turgor. Callosities absent. There is noninfected eschar of left lateral ankle b/l hallux toenails have been removed with no evidence of recurrence. Musculoskeletal/Orthopaedic: Patient has pain to palpation of right medial calcaneal tubercle Foot type is pronated structurally AJ ROM is full with knee extended and flexed 1st MPJ is full when loaded and no pain or crepitus are noted with ROM. MTJ, STJ are full and free of pain and crepitus. +5/5 muscle strength dorsiflexion, plantarflexion, inversion, eversion b/l Radiographs: xrays reviewed. There is mild arthritis present. Small heel spur present. ASSESSMENT: (M72.2) Plantar fasciitis of right foot (primary encounter diagnosis) (S80.812A) Abrasion of left lower extremity, initial encounter PLAN: 1. A thorough review of the patient's PMH and Podiatric physical exam was completed. Patient instructed on how biomechanical conditions such as pronation are contributing to plantar fascial pain. 2. Patient advised to perform stretching excercises, icing, and to make appropriate shoe gear changes to include wearing athletic- type shoes with supportive insoles. No barefoot walking. Patient also given written instructions on how to correctly perform the stretching of the achilles tendon/calf stretches, and the heel spur/plantar fasciitis regimen. 3. Patient advised to seek wide, deep toe box, accomodative, comfortable, lace-up, athletic/walking type footwear that includes motion control characteristics for support and cushion that need to be worn at all times when weight-bearing. Shoes should be tested for torsional stability as well as proper bending at the toebox rather than at the midfoot. Good quality shoes such as, but not limited to, New Balance or Asics are examples of more proper foot gear. 4. Patient recommended to get powerstep insoles for proper support of the arch in order to alleviate the tension and stress on the plantar fascia associated with normal daily walking. Patient advised that these modalities used in conjunction with stretching and icing are able to alleviate most symptoms from this condition. 5. If pain fails to improve, consider steroid injection 6. Discussed abrasion of left ankle. Eschar removed as courtesy with forceps. There is superficial, noninfected abrasion to left leg. Offered xrays as baseline study but she declined. Recommend neosporin and band aid. f/u in 2 weeks. If she has any issues, she is to contact office immediately. Randolph Mckeon DPM CNOV Observed: 09/08/2017 Status: COMPLETED Source: [place] 11:25 AM [facility] [place] REPOSITORY Office Visit (PODIWS) FRANNIE ROMO ([id number]) 1950 [address] [facility] Date Time Provider Department 09/08/17 11:25 AM RANDOLPH MCKEON PODIWS During your visit today, we recorded the following information about you: Randolph Mckeon DPM 09/08/2017 12:40 PM Signed ? Randolph Mckeon DPM Department of Podiatry [facility] [id number] Dept: [phone] Dept 09/08/2017 Follow Up Podiatric Office Visit: HPI: Frannie Romo is a 67 year old female. Patient presents for heel pain, R x1 month. Patient states that she has no pain today. About 1 month ago she was having R heel pain that was severe and causing her to walk on her toes. Has been babying at home and pain has subsided. She states that the heel pain is not as bad now. Patient has been resting her foot more. She has been applying voltaren gel to her heel and that has helped. Patient has XR to review. Physical Exam: Constitutional: Pt is a well developed 67 year old female who is alert, oriented and cooperative Eyes: Following during examination. No redness or drainage. Respiratory: RR normal and nonlabored. Even breathing. No evidence of distress or shortness of breath. Psychology: Patient is engaged during conversation. Normal affect and mood. Does not appear depressed or anxious during encounter. Vascular: Dorsalis pedis and posterior tibial pulses palpable as b/l Capillary Fill time < 5 seconds to digits 1-5 b/l Skin temperature warm to warm proximal to distal b/l Hair growth present to digits Neurological: intact light touch/epicritic sensation - tinel b/l Dermatological: Skin appears well hydrated and supple. good color, texture, turgor. Callosities absent. There is noninfected eschar of left lateral ankle b/l hallux toenails have been removed with no evidence of recurrence. Musculoskeletal/Orthopaedic: Patient has pain to palpation of right medial calcaneal tubercle Foot type is pronated structurally AJ ROM is full with knee extended and flexed 1st MPJ is full when loaded and no pain or crepitus are noted with ROM. MTJ, STJ are full and free of pain and crepitus. +5/5 muscle strength dorsiflexion, plantarflexion, inversion, eversion b/l Radiographs: xrays reviewed. There is mild arthritis present. Small heel spur present. ASSESSMENT: (M72.2) Plantar fasciitis of right foot (primary encounter diagnosis) (S80.812A) Abrasion of left lower extremity, initial encounter PLAN: 1. A thorough review of the patient's PMH and Podiatric physical exam was completed. Patient instructed on how biomechanical conditions such as pronation are contributing to plantar fascial pain. 2. Patient advised to perform stretching excercises, icing, and to make appropriate shoe gear changes to include wearing athletic- type shoes with supportive insoles. No barefoot walking. Patient also given written instructions on how to correctly perform the stretching of the achilles tendon/calf stretches, and the heel spur/plantar fasciitis regimen. 3. Patient advised to seek wide, deep toe box, accomodative, comfortable, lace-up, athletic/walking type footwear that includes motion control characteristics for support and cushion that need to be worn at all times when weight-bearing. Shoes should be tested for torsional stability as well as proper bending at the toebox rather than at the midfoot. Good quality shoes such as, but not limited to, New Balance or Asics are examples of more proper foot gear. 4. Patient recommended to get powerstep insoles for proper support of the arch in order to alleviate the tension and stress on the plantar fascia associated with normal daily walking. Patient advised that these modalities used in conjunction with stretching and icing are able to alleviate most symptoms from this condition. 5. If pain fails to improve, consider steroid injection 6. Discussed abrasion of left ankle. Eschar removed as courtesy with forceps. There is superficial, noninfected abrasion to left leg. Offered xrays as baseline study but she declined. Recommend neosporin and band aid. f/u in 2 weeks. If she has any issues, she is to contact office immediately. VICENTE Gutierrez DPM 09/08/2017 12:07 PM Addendum What is Plantar Fasciitis? Plantar fasciitis is the most common cause of heel pain. The pain is caused by inflammation of the plantar fascia. If you strain your plantar fascia, it becomes weak, swollen and irritated (inflamed). The resulting pain may be isolated in the heel or may appear at different points on the bottom of the foot, from time to time; it may occur in one foot or both. Some think that plantar fasciitis pain is caused by irritation of nerves from tissue swelling or inflammation, but it is debatable. Plantar fasciitis is common in middle-aged people; it also occurs in younger people who are on their feet a lot, such as athletes or soldiers. The plantar fascia is a strong band of connective tissue that extends from the base of the toes, along the bottom of the foot, to the bottom of the heel (calcaneous bone); it acts like a bowstring to maintain the arch of the foot. What are heel spurs? The inflammatory reaction of the heel bone may produce spike- like projections of new bone, called heel spurs. The spurs sometimes show on X-rays. They neither cause the initial pain nor do they cause the initial problem. However, later, having to walk on spurs may cause sharp pain. What causes plantar fasciitis? Plantar fasciitis is caused by straining the ligament that supports your arch. Repeated strain can cause tiny tears in the ligament. These lead to pain and swelling. During walking, the plantar fascia experiences tension up to twice the body weight with each step. While this is normal, those who spend much time on their feet, such as nurses, senior staff psychologist/waiters, and mail carriers, often experience plantar fasciitis. Athletes involved in tennis or other racquet sports, race walking, jogging or running also show a higher incidence of plantar fasciitis than do those participating in other activities. Thus, it's clear that plantar fasciitis is predominantly an overuse injury. In fact, any activity that results in prolonged tension and stress on the plantar fascia may cause plantar fasciitis. It is possible that changes in footwear may play a role in causing plantar fasciitis, no matter what activity is occurring. Those who are overweight are prone to plantar fasciitis. This is true even for sedentary people who get little physical activity. Abnormalities of the foot and ankle joints may predispose some individuals to development of plantar fasciitis (specifically, over pronation of the subtalar joint). Contributing Factors * Flat feet * Toe running, hill running * Sudden weight increase * High-arched, rigid feet * Soft terrain, e.g. running on sand * Obesity * Pronated feet (rolled inward) * Sudden increase in activity * Family tendency * Poor shoe support * Worn out or poorly fitted shoes * Increasing age * Walking, standing or running for long periods of time, especially on hard surfaces. How is the Injury Treated? Rest Your Feet: Limit, or if possible, stop activities that are causing your heel pain. Try to avoid running or walking on hard surfaces, such as concrete. Use pain as your guide. If your foot is too painful, rest it. Ice: Ice the sore area for 30 to 60 minutes, several times a day, to reduce inflammation and relieve pain. Apply a plastic bag of crushed ice (or a bag of frozen peas) over a towel. Ice the sore area for 15 minutes after activity/exercise. Application of heat is not generally recommended, as heat expands the bone and connective tissue, perhaps exerting greater pressure on nerves and thereby increasing pain. If heat is used, follow it with ice. Medication: If your condition developed recently, anti-inflammatory/analgesic medication, combined with heel pads (see below) may be all that is necessary to relieve pain and to reduce inflammation. If no pain relief has occurred after 2-3 weeks, however, your doctor may inject either cortisone or local anesthetic directly into the tender area. Exercises: Do simple exercises, such as calf stretches and towel stretches (see below) several times a day, especially when you first get up in the morning. These can help your ligament become more flexible and strengthen the muscles that support your arch. Shoes: Poorly fitting shoes can cause plantar fasciitis. The best type of shoe to wear is a good walking or running shoe with good shock absorption and excellent arch support. You should choose the one that fits the best. [employer] with your athletic shoes to find a pair that is comfortable and causes fewer symptoms. Put your shoes on as soon as you get out of bed; going barefoot or wearing slippers may make your pain worse. Good brands include (but are not limited to): New Balance, Asics, Saucony, SAS and Merrel?s. Taping: Your doctor may tape your foot to maintain the arch. This takes some of the tension off the plantar fascia. Weight Loss: If your weight is putting extra stress on your feet, your doctor may encourage you to try a weight-loss program. Orthotics: An orthotic insole is a molded piece of rubber, plastic, or other material that you insert into your shoe. It corrects the alignment of your foot and cushions your foot from excessive pounding. These may be prescription or non-prescription. Prescription orthotics are custom-fitted and may fit better and control pain better, but are very expensive. Night Splints: A night splint holds the foot with the toes pointed up and the ankle at a 90-degree angle. This position applies a constant, gentle stretch to the plantar fascia. Corticosteroid Shots: Steroids may be injected into the tender area to reduce inflammation. REHAB Exercises to stretch the plantar fascia, the calf muscles, and the Achilles tendon. Tightness of the muscles of the calves may contribute to plantar fasciitis, so stretching the calf muscles is important to rehabilitation, as is stretching of the plantar fascia itself. Plantar fascial stretches Assisted Dorsiflexion/Plantar Fascia Stretch: Sit on the floor or ground, barefoot, with both legs outstretched. Use a towel or elastic band and wrap it around the ball (and not the toes) of the affected foot. Use the towel or elastic band to provide resistance to upward movement of the forefoot. Pull foot upward (toward your body) with the help of the elastic band or towel, and then return to the starting position. Ten repetitions are recommended. Perform the sequence at least three times a day. Alternate Plantar Fascia Stretch: Sit upright in a chair, barefoot. Place the ankle of the affected foot on your opposite knee. Using the same hand as the affected foot, reach across and grab the toes. Flex the ankle toward and pull the toes toward the stephenson. To test the stretch, place the thumb of your hand on the bottom of the foot. You should be able to feel the cord- like plantar fascia, running the length of the foot. Hold the stretch for a count of 10, then relax. Repeat 10 times. Do the sequence at least three times a day. Achilles/Calf Stretches Strengthening the muscles of the calves may contribute to successful rehabilitation of plantar fasciitis, as well as prevent reoccurrence. The exercises below will help strengthen the calf muscles. Calf and Achilles Tendon Stretch (Gastrocnemius Stretch): Face a wall, standing an arm's length away. Place one foot back. Place both hands on the wall. Bend the elbows and knee of your forward leg, keeping the heel of the backward foot on the floor and keeping your body straight (aligned), until your forehead nearly touches the wall, or until significant stretch is felt in the muscles of the calf of the backward leg. Hold this position for 10 to 15 seconds. Extend elbows (straighten your arms and stand upright again) and maintain this position for 10 seconds. Repeat this cycle 15 to 20 times. Switch legs and repeat the exercise. Powerstep Original Full length. Can get at [employer] here in [place], [employer] in [place] or [place]. Also can find in [employer] in [facility] or at [employer] in [place]. Powersteps can also be purchased online, starting around $25.00 If you have a metatarsal or dancer pad for your feet apply the pad directly to the insole so you can interchange between your shoes. Find a shoe with a removable insole and take this out and replace with your powerstep insole. Always bring powersteps with you when shopping for shoes so that you can make sure that everything fits well together Referring Provider: SELF [200] Allergies As of Date: 09/08/2017 Noted Allergy Reaction EFFEXOR (VENLAFAXINE HCL) 01/01/2010 5 - Intolerance Comments: headaches ANTICHOLINERGICS - QUATERNARY 01/04/2003 Comments: amy Madison [Other] 01/04/2003 Comments: chest pain AMY (BENZTROPINE MESYLATE) 03/16/2008 Comments: Body went rigid dex rachelle [Other] 03/16/2008 Comments: Medrol dose pack: hallucinatios, diff walking KEFLEX (CEPHALEXIN) 12/18/2011 5 - Intolerance Comments: makes pt too drowsy PHENOTHIAZINES 01/04/2003 Comments: compazine-1 sided facial weakness (like stroke) ROXICET (OXYCODONE-ACETAMINOPHEN) 03/15/2010 9 - Itching Date Reviewed: 09/08/2017 Reviewed by: Mignon Jimenez Ma - Fully Assessed Reason for Visit: Heel Pain [1025] Primary Visit Diagnosis:Plantar fasciitis of right foot [M72.2] Other Visit Diagnosis:Abrasion of left lower extremity, initial encounter [S80.360S] Order(s):COMPOUNDED PRESCRIPTIONPowerstep full length insert (M72.2) Plantar fasciitis of right foot (primary encounter diagnosis)Disp: 1 DeviceRfl: 0 Prescriptions as of 09/08/2017 Sig: COMPOUNDED PRESCRIPTION Powerstep full length insert * OTEZLA 30 MG TABLET TRAZODONE 100 MG TABLET Take 3 tablets by mouth daily* RANITIDINE 300 MG TABLET Take 1 tablet by mouth once d* METHOCARBAMOL 750 MG TABLET Take 1 tablet by mouth three * ZOLPIDEM ER 12.5 MG TABLET,EX* Take 1 tablet by mouth at bed* LAMOTRIGINE 100 MG TABLET Take 1 tablet by mouth twice * BUTRANS 10 MCG/HOUR TRANSDERM* Apply 1 Patch as directed jose alfredo* FLUTICASONE 50 MCG/ACTUATION * Use 2 Sprays in each nostril * ARIPIPRAZOLE 5 MG TABLET Take 2 tablets by mouth once * ZOLEDRONIC ACID 5 MG/100 ML I* Inject 100 mL intravenously e* MODAFINIL 100 MG TABLET Take 1 tablet by mouth as nee* CHOLECALCIFEROL (VITAMIN D3) * Take 1 capsule by mouth once * LEVOTHYROXINE 50 MCG TABLET Take one tablet by mouth once* CPAP Mask (per patient preference)* CPAP AutoSV EPAP min= 12 cmH2O, PS* DICLOFENAC 1 % TOPICAL GEL Apply 2 g to affected area fo* COMPOUNDED PRESCRIPTION START IV OTEZLA ORAL Take 1 tablet by mouth twice * STOOL SOFTENER ORAL Take 1 tablet by mouth twice * OXYBUTYNIN CHLORIDE ER 10 MG * Take 10 mg by mouth once vashti* VITAMIN C ORAL Take 1 tablet by mouth once d* BIOTIN 10,000 MCG CAPSULE Take by mouth twice daily. COENZYME Q10 200 MG CAPSULE Take 200 mg by mouth twice da* HYDROCODONE 5 MG-ACETAMINOPHE* Take 1 tablet by mouth every * PREGABALIN 150 MG CAPSULE Take 1 capsule by mouth once * Patient taking differently: Take 150 mg by mouth twice da* MAGNESIUM ORAL Take 1 tablet by mouth twice * PROBIOTIC ORAL Take 1 capsule by mouth daily* CYANOCOBALAMIN (VIT B-12) 1,0* Take 1,000 mcg by mouth once * IRON PS COMPLEX-ASCORBIC ACID* Take 1 tablet by mouth daily * LIDOCAINE 5 % TOPICAL PATCH Apply one patch to each hip d* MULTIVITAMIN TABLET daily B COMPLEX TABLET,EXTENDED REL* Take one(1) tablet daily. More... More... Problem List As Of Date 09/08/2017 Noted Resolved Obesity, unspecified [E66.9] INVALID FOR*09/18/2012 More... More... Depressive disorder, not elsewhere classified [*INVALID FOR*10/21/2012 More... Mixed hyperlipidemia [E78.2] INVALID FOR* More... BONE AND CARTILAGE DIS NOS [M89.9, M94.9] INVALID FOR* More... Hypothyroidism [E03.9] INVALID FOR* More... Unspecified sleep apnea [G47.30] INVALID FOR*06/20/2014 More... More... Radiculopathy, lumbar region [M54.16] INVALID FOR* More... More... DISC DIS NEC/NOS-THORAC [M51.9] INVALID FOR* More... CERVICALGIA [M54.2] INVALID FOR* More... More... More... Vitamin D deficiency [E55.9] INVALID FOR* More... More... Insomnia [G47.00] 04/13/2014 Chronic insomnia [F51.04] INVALID FOR*04/13/2014 Class: Chronic More... 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 Obstructive Sleep apnea - AHI 48 [G47.33] INVALID FOR* More... Osteoporosis, unspecified [M81.0] INVALID FOR*08/09/2014 Osteoporosis [M81.0] INVALID FOR* More... Central sleep apnea in conditions classified el*INVALID FOR* DDD (degenerative disc disease), cervical [M50.*INVALID FOR* DDD (degenerative disc disease), lumbar [M51.36]INVALID FOR* Chronic pain [G89.29] INVALID FOR* Memory deficits [R41.3] INVALID FOR* Onychomycosis [B35.1] INVALID FOR* More... Psoriatic arthritis (HCC) [L40.50] INVALID FOR* Rotator cuff arthropathy, left [M12.812] INVALID FOR* Cervical radiculopathy [M54.12] INVALID FOR* Chronic bilateral low back pain with bilateral *INVALID FOR* Epigastric abdominal pain [R10.13] INVALID FOR* More... History of gastric bypass [Z98.84] INVALID FOR* More... Other instructions from your clinician: What is Plantar Fasciitis? Plantar fasciitis is the most common cause of heel pain. The pain is caused by inflammation of the plantar fascia. If you strain your plantar fascia, it becomes weak, swollen and irritated (inflamed). The resulting pain may be isolated in the heel or may appear at different points on the bottom of the foot, from time to time; it may occur in one foot or both. Some think that plantar fasciitis pain is caused by irritation of nerves from tissue swelling or inflammation, but it is debatable. Plantar fasciitis is common in middle-aged people; it also occurs in younger people who are on their feet a lot, such as athletes or soldiers. The plantar fascia is a strong band of connective tissue that extends from the base of the toes, along the bottom of the foot, to the bottom of the heel (calcaneous bone); it acts like a bowstring to maintain the arch of the foot. What are heel spurs? The inflammatory reaction of the heel bone may produce spike-like projections of new bone, called heel spurs. The spurs sometimes show on X-rays. They neither cause the initial pain nor do they cause the initial problem. However, later, having to walk on spurs may cause sharp pain. What causes plantar fasciitis? Plantar fasciitis is caused by straining the ligament that supports your arch. Repeated strain can cause tiny tears in the ligament. These lead to pain and swelling. During walking, the plantar fascia experiences tension up to twice the body weight with each step. While this is normal, those who spend much time on their feet, such as nurses, senior staff psychologist/waiters, and mail carriers, often experience plantar fasciitis. Athletes involved in tennis or other racquet sports, race walking, jogging or running also show a higher incidence of plantar fasciitis than do those participating in other activities. Thus, it's clear that plantar fasciitis is predominantly an overuse injury. In fact, any activity that results in prolonged tension and stress on the plantar fascia may cause plantar fasciitis. It is possible that changes in footwear may play a role in causing plantar fasciitis, no matter what activity is occurring. Those who are overweight are prone to plantar fasciitis. This is true even for sedentary people who get little physical activity. Abnormalities of the foot and ankle joints may predispose some individuals to development of plantar fasciitis (specifically, over pronation of the subtalar joint). Contributing Factors * Flat feet * Toe running, hill running * Sudden weight increase * High-arched, rigid feet * Soft terrain, e.g. running on sand * Obesity * Pronated feet (rolled inward) * Sudden increase in activity * Family tendency * Poor shoe support * Worn out or poorly fitted shoes * Increasing age * Walking, standing or running for long periods of time, especially on hard surfaces. How is the Injury Treated? Rest Your Feet: Limit, or if possible, stop activities that are causing your heel pain. Try to avoid running or walking on hard surfaces, such as concrete. Use pain as your guide. If your foot is too painful, rest it. Ice: Ice the sore area for 30 to 60 minutes, several times a day, to reduce inflammation and relieve pain. Apply a plastic bag of crushed ice (or a bag of frozen peas) over a towel. Ice the sore area for 15 minutes after activity/exercise. Application of heat is not generally recommended, as heat expands the bone and connective tissue, perhaps exerting greater pressure on nerves and thereby increasing pain. If heat is used, follow it with ice. Medication: If your condition developed recently, anti-inflammatory/analgesic medication, combined with heel pads (see below) may be all that is necessary to relieve pain and to reduce inflammation. If no pain relief has occurred after 2-3 weeks, however, your doctor may inject either cortisone or local anesthetic directly into the tender area. Exercises: Do simple exercises, such as calf stretches and towel stretches (see below) several times a day, especially when you first get up in the morning. These can help your ligament become more flexible and strengthen the muscles that support your arch. Shoes: Poorly fitting shoes can cause plantar fasciitis. The best type of shoe to wear is a good walking or running shoe with good shock absorption and excellent arch support. You should choose the one that fits the best. [employer] with your athletic shoes to find a pair that is comfortable and causes fewer symptoms. Put your shoes on as soon as you get out of bed; going barefoot or wearing slippers may make your pain worse. Good brands include (but are not limited to): New Balance, Asics, Saucony, SAS and Merrel?s. Taping: Your doctor may tape your foot to maintain the arch. This takes some of the tension off the plantar fascia. Weight Loss: If your weight is putting extra stress on your feet, your doctor may encourage you to try a weight-loss program. Orthotics: An orthotic insole is a molded piece of rubber, plastic, or other material that you insert into your shoe. It corrects the alignment of your foot and cushions your foot from excessive pounding. These may be prescription or non-prescription. Prescription orthotics are custom-fitted and may fit better and control pain better, but are very expensive. Night Splints: A night splint holds the foot with the toes pointed up and the ankle at a 90-degree angle. This position applies a constant, gentle stretch to the plantar fascia. Corticosteroid Shots: Steroids may be injected into the tender area to reduce inflammation. REHAB Exercises to stretch the plantar fascia, the calf muscles, and the Achilles tendon. Tightness of the muscles of the calves may contribute to plantar fasciitis, so stretching the calf muscles is important to rehabilitation, as is stretching of the plantar fascia itself. Plantar fascial stretches Assisted Dorsiflexion/Plantar Fascia Stretch: Sit on the floor or ground, barefoot, with both legs outstretched. Use a towel or elastic band and wrap it around the ball (and not the toes) of the affected foot. Use the towel or elastic band to provide resistance to upward movement of the forefoot. Pull foot upward (toward your body) with the help of the elastic band or towel, and then return to the starting position. Ten repetitions are recommended. Perform the sequence at least three times a day. Alternate Plantar Fascia Stretch: Sit upright in a chair, barefoot. Place the ankle of the affected foot on your opposite knee. Using the same hand as the affected foot, reach across and grab the toes. Flex the ankle toward and pull the toes toward the stephenson. To test the stretch, place the thumb of your hand on the bottom of the foot. You should be able to feel the cord-like plantar fascia, running the length of the foot. Hold the stretch for a count of 10, then relax. Repeat 10 times. Do the sequence at least three times a day. Achilles/Calf Stretches Strengthening the muscles of the calves may contribute to successful rehabilitation of plantar fasciitis, as well as prevent reoccurrence. The exercises below will help strengthen the calf muscles. Calf and Achilles Tendon Stretch (Gastrocnemius Stretch): Face a wall, standing an arm's length away. Place one foot back. Place both hands on the wall. Bend the elbows and knee of your forward leg, keeping the heel of the backward foot on the floor and keeping your body straight (aligned), until your forehead nearly touches the wall, or until significant stretch is felt in the muscles of the calf of the backward leg. Hold this position for 10 to 15 seconds. Extend elbows (straighten your arms and stand upright again) and maintain this position for 10 seconds. Repeat this cycle 15 to 20 times. Switch legs and repeat the exercise. Powerstep Original Full length. Can get at [employer] here in [place], [employer] in [place] or [place]. Also can find in [employer] in [facility] or at [employer] in [place]. Powersteps can also be purchased online, starting around $25.00 If you have a metatarsal or dancer pad for your feet apply the pad directly to the insole so you can interchange between your shoes. Find a shoe with a removable insole and take this out and replace with your powerstep insole. Always bring powersteps with you when shopping for shoes so that you can make sure that everything fits well together Prescriptions ordered this encounter Disp Refills Start End COMPOUNDED PRESCRIPTION 1 De* 0 09/08/2017 Class: Print RX Sig: Powerstep full length insert (M72.2) Plantar fasciitis of right foot (primary encounter diagnosis) Disposition: Return in about 2 weeks (around 09/22/2017) for L ankle abrasion . Follow-up and Disposition History Recorded Encounter Status:Closed by RANDOLPH MCKEON DPM on 09/08/17 XR CALCANEUS 2V Observed: 09/08/2017 Status: F Source: [place] AXIAL/LAT RT 11:04 AM [facility] [place] REPOSITORY * * *Final Report* * * DATE OF EXAM: Sep 08 2017 11:04AM [id number] - XR CALCANEUS 2V AXIAL/LAT RT / PROCEDURE REASON: Calcaneal spur, right foot * * * * Physician Interpretation * * * * 2 studies discussed below: RIGHT foot / RIGHT calcaneus HISTORY: 67 years old Clinical information: Pain, unspecified planter heel pain for a couple weeks. no injury (accession [id number]), right planter heel pain for a couple week. no injury (accession [id number]) TECHNIQUE: Images: XR FOOT 3V AP/LAT/OBL RT, XR CALCANEUS 2V AXIAL/LAT RT Comparison: None. RESULT: Findings: RIGHT foot: Moderate narrowing first MTP joint is noted. There is noted to be mild narrowing of all the interphalangeal joints. No fractures or dislocations are seen. RIGHT calcaneus: Small anterior heel spur No fractures or dislocations are seen. IMPRESSION: Degenerative changes as discussed. 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[employer]: MICHAEL Transcribe Date/Time: Sep 08 2017 12:25P Dictated by : EDDY MENDOSA DO This examination was interpreted and the report reviewed and electronically signed by: EDDY MENDOSA DO on Sep 08 2017 12:26PM EST [id number] Observed: 09/08/2017 Status: COMPLETED Source: [place] 10:52 AM [facility] [place] RE[facility]IT[facility] HNO ID: [id number] Author: Angelia (Rt) Faustino Bella Service: (none) Author Type: Classification Clerk Type: Progress Notes Filed: 09/08/2017 10:53 AM Note Text: Radiology Service Progress Note PATIENT NAME: Frannie Romo DATE OF SERVICE: September 08, 2017 TIME: 10:52 AM PATIENT IDENTITY VERIFICATION COMPLETED USING TWO (2) METHODS: Patient confirmed name verbally and Date of . PATIENT GENDER DATA: Female. status: : No status: NO. PATIENT RELEVANT IMPLANT DATA REVIEWED: Not Applicable RADIOLOGY DEPARTMENT: General X-ray: Exam(s) Completed: Lower Extremity X-Ray(s): Foot, Right and Wt. Bearing and Heel, Right and Wt. Bearing: PERIPHERAL IV DATA: Not applicable SIGNED BY: RT Angella September 08, 2017 10:52 AM XR FOOT 3V AP/LAT/OBL Observed: 09/08/2017 Status: F Source: [facility] 10:52 AM [facility] [place] REPOSITORY * * *Final Report* * * DATE OF EXAM: Sep 08 2017 10:52AM [id number] - XR FOOT 3V AP/LAT/OBL RT / PROCEDURE REASON: Pain, unspecified * * * * Physician Interpretation * * * * 2 studies discussed below: RIGHT foot / RIGHT calcaneus HISTORY: 67 years old Clinical information: Pain, unspecified planter heel pain for a couple weeks. no injury (accession [id number]), right planter heel pain for a couple week. no injury (accession [id number]) TECHNIQUE: Images: XR FOOT 3V AP/LAT/OBL RT, XR CALCANEUS 2V AXIAL/LAT RT Comparison: None. RESULT: Findings: RIGHT foot: Moderate narrowing first MTP joint is noted. There is noted to be mild narrowing of all the interphalangeal joints. No fractures or dislocations are seen. RIGHT calcaneus: Small anterior heel spur No fractures or dislocations are seen. IMPRESSION: Degenerative changes as discussed. 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Livestock: MICAHEL Transcribe Date/Time: Sep 08 2017 12:25P Dictated by : EDDY MENDOSA DO This examination was interpreted and the report reviewed and electronically signed by: EDDY MENDOSA DO on Sep 08 2017 12:26PM EST [id number] CNOV Observed: 08/26/2017 Status: COMPLETED Source: [place] 3:40 PM [facility] [place] Office Visit ([facility]) FRANNIE ROMO ([id number]) 1950 [address] [facility] Date Time Provider Department 08/26/17 3:40 PM ANA CONTRERAS G[facility] During your visit today, we recorded the following information about you: Pulse Respiration Blood pressure Weight 84/minute 17/minute 84/60 47.5 kg Height 1.54 m Ana Contreras MD 08/26/2017 4:33 PM Signed NAME: Frannie Joya Clarissa AGE: [age] year old Referred by: SELF Referred for: an opinion regarding midepigastric pain and my final recommendations will be communicated back to the requesting physician by way of shared Medical Record. GENERAL ROS: Colon polyps: No Colon cancer: No Other cancer: Yes, bladder cancer - was biopsied Radiation / Chemotherapy: No Crohn's disease / Ulcerative colitis: No High cholesterol or triglycerides: Yes, under control Ulcers: No Gallstones: No Hepatitis / jaundice: No Heart Disease: No Lung Disease: No Liver problems:No Thyroid disease: Yes, hypothyroidism Kidney stones: Yes Pancreatitis: No Diabetes: No Arthritis: Yes Rheumatic fever:No Gastrointestinal bleeding: No Depression or other mental illness:Yes, depression Other personal illness:Yes, h/o seizures but helps with pain; h/o bariatric surgery (gastric bypass) 2010 FAMILY HISTORY: Liver problems: No Colitis: No Colon cancer:No Other cancers: No PAST SURGICAL HISTORY Procedure Laterality Date - APPENDECTOMY 1983 - COLONOSCOP W/ OR W/O BRS SPEC [place] 2006 Colonoscopy - COLONOSCOP W/ OR W/O BRSH SPEC 04/10/06 Colonoscopy/ [place] - COLONOSCOP W/ OR W/O BRSH SPEC 12/01/2013 Colonoscopy - CYSTOSCOPY 2010 left stent placement - CYSTOSCOPY removal of bladder lesion- malignant. - EGD W/O [facility] SPECIMEN W/BX 03/08/08 - EGD W/O OR W/BRUSH/WASH 11/21/2009 EGD - EGD W/O OR W/BRUSH/WASH 12/01/2013 EGD - EGD W/O OR W/BRUSH/WASH 03/28/15 EGD out pt [facility] - EGD W/O OR W/BRUSH/WASH 08/19/2017 EGD - KNEE SCOPE,DIAGNOSTIC Arthroscopy, knee right - PAST SURGICAL HISTORY OF adhesions, partial sigmoid resection, bladder lift - PAST SURGICAL HISTORY OF 2005 left Hammertoe correction right 2nd and 3rd toes - PAST SURGICAL HISTORY OF 1992 Left shoulder surgery - PAST SURGICAL HISTORY OF 09/07 left shoulder - PAST SURGICAL HISTORY OF 03-09-10 Bariatric, with hernia repair. - PAST SURGICAL HISTORY OF 1983 oophrectomy - RECONSTRUCT PROX HUMERAL IMPLANT 2006 Arthroplasty, shoulder right - REMOVAL GALLBLADDER 1980 Cholecystectomy - TOTAL ABDOM HYSTERECTOMY 1982 Hysterectomy, [facility]IS GI SPECIFIC ROS: Difficulty swallowing / foods sticking in throat:Yes Heartburn:No Hoarseness: No Chronic cough: No Regurgitation: Yes Chest pain: Yes, mid upper epigastric pain Filling up quickly at meals: Yes Loss of appetite:Yes Nausea: Yes Vomiting: Yes Abdominal pain:Yes Recent change in bowel movements: No Bloody or black, bowel movements: No Constipation: No Diarrhea: No Loss of control of bowel movements: No Night sweats, fever, chills: No Thought or memory problems: Yes - memory problems Fluid in abdomen (ascites):No Prominent leg swelling:No Vomiting blood: No Recent change in weight: No CURRENT MEDICATIONS: Current Outpatient Prescriptions: traZODone (DESYREL) 100 mg tablet Take 3 tablets by mouth daily at bedtime. Ranitidine HCl (ZANTAC) 300 mg tablet Take 1 tablet by mouth once daily. methocarbamol (ROBAXIN) 750 mg tablet Take 1 tablet by mouth three times daily. PRN spasms and pain lamoTRIgine (LAMICTAL) 100 mg tablet Take 1 tablet by mouth twice daily. ARIPiprazole (ABILIFY) 5 mg tablet Take 2 tablets by mouth once daily. zoledronic acid (RECLAST) 5 mg/100 mL pgbk PREMIX piggyback Inject 100 mL intravenously every year. modafinil (PROVIGIL) 100 mg tablet Take 1 tablet by mouth as needed. levothyroxine (SYNTHROID) 50 mcg tablet Take one tablet by mouth once daily, and 1/2 tablet on Sundays. CPAP Mask (per patient preference) optional chin strap (if indicated), filters, tubing / heated tubing, heated humidity and lifetime supplies. Dx. JUVENAL G47.33 327.23 CPAP AutoSV EPAP min= 12 cmH2O, PS min-max = [id number], Max pressure = 25 cmH2O, Rate =Auto, lifetime supplies, Dx: G47.33, G47.37 diclofenac sodium (VOLTAREN) 1 % topical gel Apply 2 g to affected area four times daily. >IV - Start IV START IV APREMILAST (OTEZLA ORAL) Take 1 tablet by mouth twice daily. DOCUSATE CALCIUM (STOOL SOFTENER ORAL) Take 1 tablet by mouth twice daily. oxybutynin XL (DITROPAN XL) 10 mg 24 hr tablet Take 10 mg by mouth once daily. Biotin 10,000 mcg cap Take by mouth twice daily. HYDROcodone-acetaminophen 5-325 mg per tablet Take 1 tablet by mouth every 8 hours as needed. pregabalin 150 mg capsule Take 1 capsule by mouth once daily. Dr Lance (Patient taking differently: Take 150 mg by mouth twice daily. Dr Lance) MAGNESIUM OXIDE/MAG AA CHELATE (MAGNESIUM ORAL) Take 1 tablet by mouth twice daily. LACTOBACILLUS RHAMNOSUS GG (PROBIOTIC ORAL) Take 1 capsule by mouth daily at bedtime. FE PS CMPLX/ASCORBIC ACID (IRON PS COMPLEX-ASCORBIC ACID ORAL) Take 1 tablet by mouth daily at bedtime. LIDOCAINE 5 % (700 MG/PATCH) ADHESIVE PATCH Apply one patch to each hip daily. Remove patch after 12 hours. as needed OTEZLA 30 mg tablet Zolpidem (AMBIEN CR) 12.5 mg CR tablet Take 1 tablet by mouth at bedtime as needed for Sedation (generic acceptable) for up to 7 days. BUTRANS 10 mcg/hour Apply 1 Patch as directed every Friday for 12 days. (Dr. Lance) fluticasone (FLONASE) 50 mcg/actuation nasal spray Use 2 Sprays in each nostril once daily. Rinse mouth after use. cholecalciferol, Vitamin D3, (VITAMIN D3) 50,000 unit cap capsule Take 1 capsule by mouth once each week. ASCORBIC ACID (VITAMIN C ORAL) Take 1 tablet by mouth once daily. Coenzyme Q10 200 mg cap Take 200 mg by mouth twice daily. Cyanocobalamin (VITAMIN B-12) 1,000 mcg ORAL Lozg Take 1,000 mcg by mouth once daily. MULTIVITAMIN TAB daily vitamin b complex(B COMPLEX TAB) Take one(1) tablet daily. No current facility-administered medications for this visit. ALLERGIES: Effexor [Venlafaxine Hcl]; Anticholinergics - Quaternary; Codiene [Other]; Cogentin [Benztropine Mesylate]; Dex Rachelle [Other]; Keflex [Cephalexin]; Phenothiazines; Roxicet [Oxycodone-Acetaminophen] PERSONAL HABITS: Tobacco: No Alcohol: No Coffee: Yes, How Many? Twice a month; drinks 1 large cup of iced tea per day The above documentation completed by Antoinette Newton RN I agree with the Chief Complaint, ROS, and Past Histories independently gathered by the clinical child support investigator and the remaining scribed note accurately describes my personal service to the patient. ------- PRESENTING COMPLAINT AND HISTORY: Patient presents with: Abdominal Pain History: The patient presents with a prior history of gastroesophageal reflux for approximately 2 years beginning in 2007 and resolving in 2009 when she had a Domenico-en-Y gastric bypass. She notes that during the most significant period of acid reflux, she was taking Tums frequently. Prior to the bypass she did complain of dysphagia to solids. While the reflux symptoms improved after the gastric bypass, the dysphagia symptoms persisted. In 2013 she had a timed and video barium swallows performed which were remarkable for: RESULT: Findings: ? Timed barium esophagram was performed following the oral ingestion of ? 250 ml of contrast. The height and width of the barium column are measured using the ruler within the image : 02/10/2014 One minute: 7.5 x 1.0 cm. There is complete emptying by 2 minutes The esophagus is normal in course and caliber. ?Esophageal motility assessment showed some mild retrograde escape but was otherwise normal. ? Postoperative changes of the gastric bypass. ?No dilation the gastric pouch or pouch outlet obstruction. ?Proximal small bowel loops are normal in caliber and fold pattern. IMPRESSION: ?NO CHANGES OF ACHALASIA. ?MILD ESOPHAGEAL DYSMOTILITY BUT OTHERWISE NORMAL POSTOP GASTRIC BYPASS APPEARANCE. Prior to the gastric bypass there was no evidence for a hiatal hernia. The patient had an upper endoscopy performed in 11/2013 which was remarkable for: EGD Findings: ?? ? The esophagus was normal. Bx taken for EE. ?? ? Evidence of a gastric bypass with domenico-en-y was found. A gastric pouch ?? ? was found. Impression: ?- Normal esophagus. ? - Gastric bypass. The pathology report was remarkable for: Specimen #: [id number] Submitting Physician: YAIR BEAR MD FINAL DIAGNOSIS 1. Esophagus, mid, biopsy (A) - Squamous esophageal mucosa with mild reactive change, no evidence of eosinophilic esophagitis. She was doing well until about 6 months ago when she began to develop epigastric discomfort described as a gnawing sensation associated with pins and needles. The symptoms seem to be worsening. She developed an acute episode approximately 2 weeks ago which lasted for hours before spontaneously resolving. There was no associated nausea or vomiting. There is no history of NSAIDs. She was prescribed ranitidine. Despite taking the ranitidine she still complains of epigastric pressure which is not as severe as it was during her acute episode 2 weeks ago. She also complains of persistent dysphagia to spaghetti noodles and ground beef. A follow-up upper endoscopy was performed 08/19/2017 which was remarkable for: OPERATIVE PROCEDURE: EGD with biopsies DESCRIPTION OF THE PROCEDURE: After informed consent was given, the patient was for brought to the endoscopy suite. Appropriate time- out protocol was done in the preprocedure area as well as in the endoscopy suite. The patient was given IV anesthesia. The posterior pharynx was sprayed with local spray anesthetic. A bite block was then placed. The patient was placed in left lateral decubitus position. The endoscope was then lubricated, carefully inserted the patient's mouth and advanced into the esophagus. It is advanced down the esophagus into the stomach pouch and then the anastomosis was easily evaluated. There appeared to be no evidence of any ulcers or any masses. The short segment of the duodenal Domenico- en-Y was then entered approximately to a distance of 10 cm. There was no evidence of any masses or any polyps or any ulcers. The endoscope was retracted back in the stomach pouch. The stomach pouch did not appear overly distended. Because of the patient's complaint, mucosal biopsies were taken of the anastomosis. The stomach pouch appeared normal without any masses or any ulcers or any polyps. The GE junction also appeared normal. Because of the patient's complaint mucosal biopsies were taken of the GE junction. The remainder of the esophagus appeared normal. There was no evidence of any ulcers, masses, or polyps. There was no evidence of any strictures. The endoscope was removed intact. The patient tolerated procedure well. She was brought to the recovery room in stable condition. [address] [address] NAME: ?FRANNIE ROMO ? MRN: ?[id number] ?REQUESTING: FRANNIE MERRITT MD FINAL DIAGNOSIS: ?A) GASTRIC BYPASS ANASTOMOTIC JUNCTION, BIOPSY - BENIGN SMALL INTESTINAL MUCOSA AND BENIGN GASTRIC MUCOSA WITH CHRONIC INFLAMMATION AND INTESTINAL METAPLASIA. B) GASTROESOPHAGEAL JUNCTION, BIOPSY - CHRONIC INFLAMMATION AND FOCAL SPECIALIZED INTESTINAL (GOBLET CELL) METAPLASIA CONSISTENT WITH CHRISTENSEN'S ESOPHAGUS. ?NEGATIVE FOR DYSPLASIA. ?ALCIAN BLUE/PAS STAIN REVIEWED. ? The patient now presents for further evaluation. PHYSICAL EXAMINATION: General Appearance: Cooperative, in no acute distress, alert. Eyes: Conjunctivas/corneas clear. Oropharynx: Lips, tongue, and oral mucosa normal. Thyroid: No goiter. Lungs: Lungs clear to auscultation, no wheezing or rhonchi. Heart: RRR without murmur, gallop or rubs. Abdomen: Multiple abdominal scars. Bowel sounds normal. Soft with mild epigastric discomfort to palpation. No masses or organomegaly. Extremities: Normal, with no deformities or edema. Skin: No rashes or lesions. Lymph:No cervical or supraclavicular adenopathy. Pulses: normal Bruits: No. Joints: No deformity. Good range of motion. IMPRESSION: Lower chest/epigastric discomfort with previous timed barium swallow remarkable for a column of 7.5 cm at one min with clearance by 2 min. R/O esophageal motility disorder History of prior gastroesophageal reflux for 2 years?improved with gastric bypass Rule out Christensen's esophagus in the distal esophagus Status post Domenico-en-Y gastric bypass performed in 2009-status post 104 pounds weight loss History of transverse colon tubular adenoma removed in 2013 F/U colonoscopy in 2018. Remote history of a sigmoid colectomy in the PLAN: Timed and video barium swallows EGD with MAC RUQ U/S F/U screening colonoscopy in one year The majority of the visit was spent counseling and/or coordinating care for the patient. Pcml-db-cmaj time was 45 minutes. STAFF PHYSICIAN Ana Contreras MD Referring Provider: SELF [[id number]] Allergies As of Date: 08/26/2017 Noted Allergy Reaction EFFEXOR (VENLAFAXINE HCL) 01/01/2010 5 - Intolerance Comments: headaches ANTICHOLINERGICS - QUATERNARY 01/04/2003 Comments: cogentin Codiene [Other] 01/04/2003 Comments: chest pain COGENTIN (BENZTROPINE MESYLATE) 03/16/2008 Comments: Body went rigid dex rachelle [Other] 03/16/2008 Comments: Medrol dose pack: hallucinatios, diff walking KEFLEX (CEPHALEXIN) 12/18/2011 5 - Intolerance Comments: makes pt too drowsy PHENOTHIAZINES 01/04/2003 Comments: compazine-1 sided facial weakness (like stroke) ROXICET (OXYCODONE-ACETAMINOPHEN) 03/15/2010 9 - Itching Date Reviewed: 08/26/2017 Reviewed by: Antoinette (Rn) LOU Newton - Fully Assessed Reason for Visit: Abdominal Pain [1] Primary Visit Diagnosis:Esophageal dysphagia [R13.10] Other Visit Diagnoses:Epigastric abdominal pain [R10.13] History of gastric bypass [Z98.84] History of gastroesophageal reflux (GERD) [Z87.19] Personal history of colonic polyps [Z86.010] History of cholecystectomy [Z90.49] Order(s):EGD GEN ANES [8278967] Order #: [id number] FUTURE XR ESOPHAGRAM [[id number]] Order #: [id number] FUTURE US ABD RT UPPER QUADRANT [[id number]] Order #: [id number] FUTURE Prescriptions as of 08/26/2017 Sig: TRAZODONE 100 MG TABLET Take 3 tablets by mouth daily* RANITIDINE 300 MG TABLET Take 1 tablet by mouth once d* METHOCARBAMOL 750 MG TABLET Take 1 tablet by mouth three * LAMOTRIGINE 100 MG TABLET Take 1 tablet by mouth twice * ARIPIPRAZOLE 5 MG TABLET Take 2 tablets by mouth once * ZOLEDRONIC ACID 5 MG/100 ML I* Inject 100 mL intravenously e* MODAFINIL 100 MG TABLET Take 1 tablet by mouth as nee* LEVOTHYROXINE 50 MCG TABLET Take one tablet by mouth once* CPAP Mask (per patient preference)* CPAP AutoSV EPAP min= 12 cmH2O, PS* DICLOFENAC 1 % TOPICAL GEL Apply 2 g to affected area fo* COMPOUNDED PRESCRIPTION START IV OTEZLA ORAL Take 1 tablet by mouth twice * STOOL SOFTENER ORAL Take 1 tablet by mouth twice * OXYBUTYNIN CHLORIDE ER 10 MG * Take 10 mg by mouth once vashti* BIOTIN 10,000 MCG CAPSULE Take by mouth twice daily. HYDROCODONE 5 MG-ACETAMINOPHE* Take 1 tablet by mouth every * PREGABALIN 150 MG CAPSULE Take 1 capsule by mouth once * Patient taking differently: Take 150 mg by mouth twice da* MAGNESIUM ORAL Take 1 tablet by mouth twice * PROBIOTIC ORAL Take 1 capsule by mouth daily* IRON PS COMPLEX-ASCORBIC ACID* Take 1 tablet by mouth daily * LIDOCAINE 5 % TOPICAL PATCH Apply one patch to each hip d* OTEZLA 30 MG TABLET ZOLPIDEM ER 12.5 MG TABLET,EX* Take 1 tablet by mouth at bed* BUTRANS 10 MCG/HOUR TRANSDERM* Apply 1 Patch as directed jose alfredo* FLUTICASONE 50 MCG/ACTUATION * Use 2 Sprays in each nostril * CHOLECALCIFEROL (VITAMIN D3) * Take 1 capsule by mouth once * VITAMIN C ORAL Take 1 tablet by mouth once d* COENZYME Q10 200 MG CAPSULE Take 200 mg by mouth twice da* CYANOCOBALAMIN (VIT B-12) 1,0* Take 1,000 mcg by mouth once * MULTIVITAMIN TABLET daily B COMPLEX TABLET,EXTENDED REL* Take one(1) tablet daily. More... More... Problem List As Of Date 08/26/2017 Noted Resolved Obesity, unspecified [E66.9] INVALID FOR*09/18/2012 More... More... Depressive disorder, not elsewhere classified [*INVALID FOR*10/21/2012 More... Mixed hyperlipidemia [E78.2] INVALID FOR* More... BONE AND CARTILAGE DIS NOS [M89.9, M94.9] INVALID FOR* More... Hypothyroidism [E03.9] INVALID FOR* More... Unspecified sleep apnea [G47.30] INVALID FOR*06/20/2014 More... More... Radiculopathy, lumbar region [M54.16] INVALID FOR* More... More... DISC DIS NEC/NOS-THORAC [M51.9] INVALID FOR* More... CERVICALGIA [M54.2] INVALID FOR* More... More... More... Vitamin D deficiency [E55.9] INVALID FOR* More... More... Insomnia [G47.00] 04/13/2014 Chronic insomnia [F51.04] INVALID FOR*04/13/2014 Class: Chronic More... 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 Obstructive Sleep apnea - AHI 48 [G47.33] INVALID FOR* More... Osteoporosis, unspecified [M81.0] INVALID FOR*08/09/2014 Osteoporosis [M81.0] INVALID FOR* More... Central sleep apnea in conditions classified el*INVALID FOR* DDD (degenerative disc disease), cervical [M50.*INVALID FOR* DDD (degenerative disc disease), lumbar [M51.36]INVALID FOR* Chronic pain [G89.29] INVALID FOR* Memory deficits [R41.3] INVALID FOR* Onychomycosis [B35.1] INVALID FOR* More... Psoriatic arthritis (HCC) [L40.50] INVALID FOR* Rotator cuff arthropathy, left [M12.812] INVALID FOR* Cervical radiculopathy [M54.12] INVALID FOR* Chronic bilateral low back pain with bilateral *INVALID FOR* Epigastric abdominal pain [R10.13] INVALID FOR* More... History of gastric bypass [Z98.84] INVALID FOR* More... Encounter Status:Closed by ANA CONTRERAS MD on 08/26/17 PROGRESS Observed: 08/26/2017 Status: COMPLETED Source: [place] 3:10 PM [facility] [place] [facility] O ID: [id number] Author: Ana Contreras Service: (none) Author Type: Physician Type: Progress Notes Filed: 08/26/2017 4:33 PM Note Text: NAME: Frannie Romo AGE: [age] year old Referred by: SELF Referred for: an opinion regarding midepigastric pain and my final recommendations will be communicated back to the requesting physician by way of shared Medical Record. GENERAL ROS: Colon polyps: No Colon cancer: No Other cancer: Yes, bladder cancer - was biopsied Radiation / Chemotherapy: No Crohn's disease / Ulcerative colitis: No High cholesterol or triglycerides: Yes, under control Ulcers: No Gallstones: No Hepatitis / jaundice: No Heart Disease: No Lung Disease: No Liver problems:No Thyroid disease: Yes, hypothyroidism Kidney stones: Yes Pancreatitis: No Diabetes: No Arthritis: Yes Rheumatic fever:No Gastrointestinal bleeding: No Depression or other mental illness:Yes, depression Other personal illness:Yes, h/o seizures but helps with pain; h/o bariatric surgery (gastric bypass) 2010 FAMILY HISTORY: Liver problems: No Colitis: No Colon cancer:No Other cancers: No PAST SURGICAL HISTORY Procedure Laterality Date - APPENDECTOMY 1984 - COLONOSCOP W/ [place] W/O BRS SPEC [place] 2006 Colonoscopy - COLONOSCOP W/ OR W/O BRSH SPEC 04/10/06 Colonoscopy/ [place] - COLONOSCOP W/ OR W/O BRSH SPEC 12/01/2013 Colonoscopy - CYSTOSCOPY 2010 left stent placement - CYSTOSCOPY removal of bladder lesion- malignant. - EGD W/O BRSH SPECIMEN W/BX 03/08/08 - EGD W/O OR W/BRUSH/WASH 11/21/2009 EGD - EGD W/O OR W/BRUSH/WASH 12/01/2013 EGD - EGD W/O OR W/BRUSH/WASH 03/28/15 EGD out pt [facility] - EGD W/O OR W/BRUSH/WASH 08/19/2017 EGD - KNEE SCOPE,DIAGNOSTIC Arthroscopy, knee right - PAST SURGICAL HISTORY OF adhesions, partial sigmoid resection, bladder lift - PAST SURGICAL HISTORY OF 2005 left Hammertoe correction right 2nd and 3rd toes - PAST SURGICAL HISTORY OF 1992 Left shoulder surgery - PAST SURGICAL HISTORY OF 09/07 left shoulder - PAST SURGICAL HISTORY OF 03-09-10 Bariatric, with hernia repair. - PAST SURGICAL HISTORY OF 1983 oophrectomy - RECONSTRUCT PROX HUMERAL IMPLANT 2006 Arthroplasty, shoulder right - REMOVAL GALLBLADDER 1980 Cholecystectomy - TOTAL ABDOM HYSTERECTOMY 1982 Hysterectomy, [facility]IS GI SPECIFIC ROS: Difficulty swallowing / foods sticking in throat:Yes Heartburn:No Hoarseness: No Chronic cough: No Regurgitation: Yes Chest pain: Yes, mid upper epigastric pain Filling up quickly at meals: Yes Loss of appetite:Yes Nausea: Yes Vomiting: Yes Abdominal pain:Yes Recent change in bowel movements: No Bloody or black, bowel movements: No Constipation: No Diarrhea: No Loss of control of bowel movements: No Night sweats, fever, chills: No Thought or memory problems: Yes - memory problems Fluid in abdomen (ascites):No Prominent leg swelling:No Vomiting blood: No Recent change in weight: No CURRENT MEDICATIONS: Current Outpatient Prescriptions: traZODone (DESYREL) 100 mg tablet Take 3 tablets by mouth daily at bedtime. Ranitidine HCl (ZANTAC) 300 mg tablet Take 1 tablet by mouth once daily. methocarbamol (ROBAXIN) 750 mg tablet Take 1 tablet by mouth three times daily. PRN spasms and pain lamoTRIgine (LAMICTAL) 100 mg tablet Take 1 tablet by mouth twice daily. ARIPiprazole (ABILIFY) 5 mg tablet Take 2 tablets by mouth once daily. zoledronic acid (RECLAST) 5 mg/100 mL pgbk PREMIX piggyback Inject 100 mL intravenously every year. modafinil (PROVIGIL) 100 mg tablet Take 1 tablet by mouth as needed. levothyroxine (SYNTHROID) 50 mcg tablet Take one tablet by mouth once daily, and 1/2 tablet on Sundays. CPAP Mask (per patient preference) optional chin strap (if indicated), filters, tubing / heated tubing, heated humidity and lifetime supplies. Dx. JUVENAL G47.33 327.23 CPAP AutoSV EPAP min= 12 cmH2O, PS min-max = [id number], Max pressure = 25 cmH2O, Rate =Auto, lifetime supplies, Dx: G47.33, G47.37 diclofenac sodium (VOLTAREN) 1 % topical gel Apply 2 g to affected area four times daily. >IV - Start IV START IV APREMILAST (OTEZLA ORAL) Take 1 tablet by mouth twice daily. DOCUSATE CALCIUM (STOOL SOFTENER ORAL) Take 1 tablet by mouth twice daily. oxybutynin XL (DITROPAN XL) 10 mg 24 hr tablet Take 10 mg by mouth once daily. Biotin 10,000 mcg cap Take by mouth twice daily. HYDROcodone-acetaminophen 5-325 mg per tablet Take 1 tablet by mouth every 8 hours as needed. pregabalin 150 mg capsule Take 1 capsule by mouth once daily. Dr Lance (Patient taking differently: Take 150 mg by mouth twice daily. Dr Lance) MAGNESIUM OXIDE/MAG AA CHELATE (MAGNESIUM ORAL) Take 1 tablet by mouth twice daily. LACTOBACILLUS RHAMNOSUS GG (PROBIOTIC ORAL) Take 1 capsule by mouth daily at bedtime. FE PS CMPLX/ASCORBIC ACID (IRON PS COMPLEX-ASCORBIC ACID ORAL) Take 1 tablet by mouth daily at bedtime. LIDOCAINE 5 % (700 MG/PATCH) ADHESIVE PATCH Apply one patch to each hip daily. Remove patch after 12 hours. as needed OTEZLA 30 mg tablet Zolpidem (AMBIEN CR) 12.5 mg CR tablet Take 1 tablet by mouth at bedtime as needed for Sedation (generic acceptable) for up to 7 days. BUTRANS 10 mcg/hour Apply 1 Patch as directed every Friday for 12 days. (Dr. Lance) fluticasone (FLONASE) 50 mcg/actuation nasal spray Use 2 Sprays in each nostril once daily. Rinse mouth after use. cholecalciferol, Vitamin D3, (VITAMIN D3) 50,000 unit cap capsule Take 1 capsule by mouth once each week. ASCORBIC ACID (VITAMIN C ORAL) Take 1 tablet by mouth once daily. Coenzyme Q10 200 mg cap Take 200 mg by mouth twice daily. Cyanocobalamin (VITAMIN B-12) 1,000 mcg ORAL Lozg Take 1,000 mcg by mouth once daily. MULTIVITAMIN TAB daily vitamin b complex(B COMPLEX TAB) Take one(1) tablet daily. No current facility-administered medications for this visit. ALLERGIES: Effexor [Venlafaxine Hcl]; Anticholinergics - Quaternary; Codiene [Other]; Cogentin [Benztropine Mesylate]; Dex Rachelle [Other]; Keflex [Cephalexin]; Phenothiazines; Roxicet [Oxycodone-Acetaminophen] PERSONAL HABITS: Tobacco: No Alcohol: No Coffee: Yes, How Many? Twice a month; drinks 1 large cup of iced tea per day The above documentation completed by Antoinette Newton RN I agree with the Chief Complaint, ROS, and Past Histories independently gathered by the clinical child support investigator and the remaining scribed note accurately describes my personal service to the patient. PRESENTING COMPLAINT AND HISTORY: Patient presents with: Abdominal Pain History: The patient presents with a prior history of gastroesophageal reflux for approximately 2 years beginning in 2007 and resolving in 2009 when she had a Domenico-en-Y gastric bypass. She notes that during the most significant period of acid reflux, she was taking Tums frequently. Prior to the bypass she did complain of dysphagia to solids. While the reflux symptoms improved after the gastric bypass, the dysphagia symptoms persisted. In 2013 she had a timed and video barium swallows performed which were remarkable for: RESULT: Findings: ? Timed barium esophagram was performed following the oral ingestion of ? 250 ml of contrast. The height and width of the barium column are measured using the ruler within the image : 02/10/2014 One minute: 7.5 x 1.0 cm. There is complete emptying by 2 minutes The esophagus is normal in course and caliber. ?Esophageal motility assessment showed some mild retrograde escape but was otherwise normal. ? Postoperative changes of the gastric bypass. ?No dilation the gastric pouch or pouch outlet obstruction. ?Proximal small bowel loops are normal in caliber and fold pattern. IMPRESSION: ?NO CHANGES OF ACHALASIA. ?MILD ESOPHAGEAL DYSMOTILITY BUT OTHERWISE NORMAL POSTOP GASTRIC BYPASS APPEARANCE. Prior to the gastric bypass there was no evidence for a hiatal hernia. The patient had an upper endoscopy performed in 11/2013 which was remarkable for: EGD Findings: ?? ? The esophagus was normal. Bx taken for EE. ?? ? Evidence of a gastric bypass with domenico-en-y was found. A gastric pouch ?? ? was found. Impression: ?- Normal esophagus. ? - Gastric bypass. The pathology report was remarkable for: Specimen #: [id number] Submitting Physician: YAIR BEAR MD FINAL DIAGNOSIS 1. Esophagus, mid, biopsy (A) - Squamous esophageal mucosa with mild reactive change, no evidence of eosinophilic esophagitis. She was doing well until about 6 months ago when she began to develop epigastric discomfort described as a gnawing sensation associated with pins and needles. The symptoms seem to be worsening. She developed an acute episode approximately 2 weeks ago which lasted for hours before spontaneously resolving. There was no associated nausea or vomiting. There is no history of NSAIDs. She was prescribed ranitidine. Despite taking the ranitidine she still complains of epigastric pressure which is not as severe as it was during her acute episode 2 weeks ago. She also complains of persistent dysphagia to spaghetti noodles and ground beef. A follow-up upper endoscopy was performed 08/19/2017 which was remarkable for: OPERATIVE PROCEDURE: EGD with biopsies DESCRIPTION OF THE PROCEDURE: After informed consent was given, the patient was for brought to the endoscopy suite. Appropriate time-out protocol was done in the preprocedure area as well as in the endoscopy suite. The patient was given IV anesthesia. The posterior pharynx was sprayed with local spray anesthetic. A bite block was then placed. The patient was placed in left lateral decubitus position. The endoscope was then lubricated, carefully inserted the patient's mouth and advanced into the esophagus. It is advanced down the esophagus into the stomach pouch and then the anastomosis was easily evaluated. There appeared to be no evidence of any ulcers or any masses. The short segment of the duodenal Domenico- en-Y was then entered approximately to a distance of 10 cm. There was no evidence of any masses or any polyps or any ulcers. The endoscope was retracted back in the stomach pouch. The stomach pouch did not appear overly distended. Because of the patient's complaint, mucosal biopsies were taken of the anastomosis. The stomach pouch appeared normal without any masses or any ulcers or any polyps. The GE junction also appeared normal. Because of the patient's complaint mucosal biopsies were taken of the GE junction. The remainder of the esophagus appeared normal. There was no evidence of any ulcers, masses, or polyps. There was no evidence of any strictures. The endoscope was removed intact. The patient tolerated procedure well. She was brought to the recovery room in stable condition. [place] [id number] NAME: ?FRANNIE ROMO ? MRN: ?[id number] ?REQUESTING: FRANNIE MERRITT MD FINAL DIAGNOSIS: ?A) GASTRIC BYPASS ANASTOMOTIC JUNCTION, BIOPSY - BENIGN SMALL INTESTINAL MUCOSA AND BENIGN GASTRIC MUCOSA WITH CHRONIC INFLAMMATION AND INTESTINAL METAPLASIA. B) GASTROESOPHAGEAL JUNCTION, BIOPSY - CHRONIC INFLAMMATION AND FOCAL SPECIALIZED INTESTINAL (GOBLET CELL) METAPLASIA CONSISTENT WITH CHRISTENSEN'S ESOPHAGUS. ?NEGATIVE FOR DYSPLASIA. ?ALCIAN BLUE/PAS STAIN REVIEWED. ? The patient now presents for further evaluation. PHYSICAL EXAMINATION: General Appearance: Cooperative, in no acute distress, alert. Eyes: Conjunctivas/corneas clear. Oropharynx: Lips, tongue, and oral mucosa normal. Thyroid: No goiter. Lungs: Lungs clear to auscultation, no wheezing or rhonchi. Heart: RRR without murmur, gallop or rubs. Abdomen: Multiple abdominal scars. Bowel sounds normal. Soft with mild epigastric discomfort to palpation. No masses or organomegaly. Extremities: Normal, with no deformities or edema. Skin: No rashes or lesions. Lymph:No cervical or supraclavicular adenopathy. Pulses: normal Bruits: No. Joints: No deformity. Good range of motion. IMPRESSION: Lower chest/epigastric discomfort with previous timed barium swallow remarkable for a column of 7.5 cm at one min with clearance by 2 min. R/O esophageal motility disorder History of prior gastroesophageal reflux for 2 years?improved with gastric bypass Rule out Christensen's esophagus in the distal esophagus Status post Domenico-en-Y gastric bypass performed in 2009-status post 104 pounds weight loss History of transverse colon tubular adenoma removed in 2013 F/U colonoscopy in 2018. Remote history of a sigmoid colectomy in the PLAN: Timed and video barium swallows EGD with MAC RUQ U/S F/U screening colonoscopy in one year The majority of the visit was spent counseling and/or coordinating care for the patient. Vabo-sh-lcej time was 45 minutes. STAFF PHYSICIAN Ana Contreras MD OPERATIVE NO Observed: 08/20/2017 Status: COMPLETED Source: [place] 12:00 AM [facility] [place] [facility] HNO ID: [id number] Author: Frannie Merritt Service: (none) Author Type: Physician Type: Operative Report Filed: 08/21/2017 7:59 AM Note Text: [facility] - Operative Report SURGEON: Frannie Merritt MD PATIENT NAME: FRANNIE ROMO CSN: [id number] DATE OF SURGERY: 08/19/2017 DATE OF : 1950 SEX/AGE: F/67 PATIENT TYPE: A [facility]: [facility] LOCATION: [facility] DATE OF SURGERY: 08/19/2017 SURGEON: Frannie Merritt MD [facility] PREOPERATIVE DIAGNOSIS: Dysphagia and substernal chest pain. POSTOPERATIVE DIAGNOSIS: Dysphagia and substernal chest pain. PROCEDURE PERFORMED: Esophagogastroduodenoscopy with mucosal biopsy. ANESTHESIA USED: MAC. SPECIMEN: Mucosal biopsy of anastomosis and mucosal biopsy of GE junction. INDICATIONS: Frannie Romo is a 67-year-old white female, who is status post gastric Domenico-en-Y bariatric surgery in 2009, presents with substernal chest pain and dysphagia. She therefore presents for evaluation with upper endoscopy. She has been counseled of the risks of the procedure including, but not limited to infection, bleeding, perforation, GI tract requiring emergency surgery, inability to complete the procedure, complications of anesthesia, etc. The patient understands and agrees to proceed. DESCRIPTION OF THE PROCEDURE: After informed consent was given, the patient was for brought to the endoscopy suite. Appropriate time-out protocol was done in the preprocedure area as well as in the endoscopy suite. The patient was given IV anesthesia. The posterior pharynx was sprayed with local spray anesthetic. A bite block was then placed. The patient was placed in left lateral decubitus position. The endoscope was then lubricated, carefully inserted the patient's mouth and advanced into the esophagus. It is advanced down the esophagus into the stomach pouch and then the anastomosis was easily evaluated. There appeared to be no evidence of any ulcers or any masses. The short segment of the duodenal Domenico- en-Y was then entered approximately to a distance of 10 cm. There was no evidence of any masses or any polyps or any ulcers. The endoscope was retracted back in the stomach pouch. The stomach pouch did not appear overly distended. Because of the patient's complaint, mucosal biopsies were taken of the anastomosis. The stomach pouch appeared normal without any masses or any ulcers or any polyps. The GE junction also appeared normal. Because of the patient's complaint mucosal biopsies were taken of the GE junction. The remainder of the esophagus appeared normal. There was no evidence of any ulcers, masses, or polyps. There was no evidence of any strictures. The endoscope was removed intact. The patient tolerated procedure well. She was brought to the recovery room in stable condition. COMPLICATIONS: None. DRAINS: None. Frannie Merritt MD LW:modl /[id number] NURSING PROG Observed: 08/19/2017 Status: COMPLETED Source: [place] 12:42 PM [facility] [place] [facility] HNO ID: [id number] Author: Sosa (Rn) LOU Sanders Service: Nursing Author Type: Registered Nurse Type: Nursing Progress Note Filed: 08/19/2017 12:43 PM Note Text: Post procedure now, pt joi. all well, po taken, no c/o, spouse here, gets dressed, advised, knows about 2 bx, dr Merritt vs, no changes. Wants to go home. ANES POST Observed: 08/19/2017 Status: COMPLETED Source: [place] 12:17 PM [facility] [place] [facility] HNO ID: [id number] Author: Sosa Palma Service: (none) Author Type: Physician Type: Anesthesia PostOp Filed: 08/19/2017 12:17 PM Note Text: POST ANESTHESIA EVALUATION NOTE SERVICE DATE: 08/19/2017 SERVICE TIME: 12:17 PM : 1950 Vitals: 08/19/17 1057 08/19/17 1212 Temp: 36.7 ?C (98.1 ?F) 37.2 ?C (99 ?F) 08/19/17 1057 08/19/17 1212 BP: 107/67 99/58 08/19/17 1057 08/19/17 1212 Pulse: 60 61 08/19/17 1057 08/19/17 1212 Resp: 18 17 08/19/17 1057 08/19/17 1212 SpO2: 99% 92% Validated Vital Signs: Yes POST ANES STATUS: No apparent anesthetic complications. The patient is appropriately hydrated with stable respiratory and cardiovascular status. Patient has safe and adequate airway control. The patient has appropriate pain relief and no significant post operative nausea or vomiting. The patient has achieved baseline mental status. Further assessment by Anesthesia Service: None Other Remarks: SIGNATURE: Sosa Palma MD PATIENT NAME: Frannie Romo DATE: August 19, 2017 TIME: 12:17 PM PAGER/CONTACT #: BRIEF OP NOT Observed: 08/19/2017 Status: COMPLETED Source: [place] 12:11 PM [facility] [place] [facility] HNO ID: [id number] Author: Frannie Merritt Service: (none) Author Type: Physician Type: Brief Op Note Filed: 08/19/2017 12:22 PM Note Text: BRIEF OPERATIVE NOTE SURGERY DATE: 08/19/2017 Incision/Procedure Start Time: 12:01 Incision Close/Procedure End Time: 12:06 Surgeon(s)/Proceduralist(s) and Electric Furnace Operator(s): René Procedures: EGD with biopsies Anesthesia: MAC Findings: no evidence of ulcers/masses Estimated Blood Loss: < 1 mls Specimens: dysphagia and substernal chest pain Complications: mucosal biopsies of anastomosis and GE junction Preop Diagnosis: substernal chest pain/dysphagia Postop Diagnosis: same SIGNATURE: Frannie Merritt MD PATIENT NAME: Frannie Romo DATE: August 19, 2017 TIME: 12:11 PM PAGER/CONTACT #: ANES PREOP Observed: 08/19/2017 Status: COMPLETED Source: [place] 11:46 AM [facility] [place] [facility] HNO ID: [id number] Author: Sosa Palma Service: (none) Author Type: Physician Type: Anesthesia PreOp Filed: 08/19/2017 11:47 AM Note Text: ANESTHESIOLOGY PREOPERATIVE ASSESSMENT SERVICE DATE: 08/19/2017 SERVICE TIME: 11:46 AM : 1950 Surgeon(s): Frannie Merritt Procedure(s) (LRB): EGD (N/A) Estimated body mass index is 20.12 kg/m? as calculated from the following: Height as of 08/02/17: 152.4 cm (5'). Weight as of this encounter: 46.7 kg (103 lb). 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 Epilepsy (Hcc) Major Depression in Partial Remission (Hcc) Psychophysiological Insomnia Obstructive Sleep apnea - AHI 48 Osteoporosis Central Sleep Apnea in Conditions Classified Elsewhere(327.27) Ddd (Degenerative Disc Disease), Cervical Ddd (Degenerative Disc Disease), Lumbar Chronic Pain Memory Deficits Onychomycosis Psoriatic Arthritis (Hcc) Rotator Cuff Arthropathy, Left Cervical Radiculopathy Chronic Bilateral Low Back Pain With Bilateral Sciatica Epigastric Abdominal Pain History of Gastric Bypass PAST MEDICAL HISTORY Diagnosis Date - Abdominal pain, unspecified site 02/28/2008 Reportedly had sigmoid resetion for adhesions about age 37: mutiple surgeries for adhesions, endometriosis, etc Camelia, LUIS (no comment on ovaries), cliff in sigmoid area by CT in 04-06 [facility] (Colorectal surgery) 12-05: prob small midline, incis hernia, did not rec repeat EGD/Colon/Surg-more adhesions WBC 5.8 K, HCT 43% in 01-04 Int hems ligated in 01-04 per [facility] - Abnormal glucose tolerance test 01/16/2012 - Abnormality of gait 05/01/2011 - Acute gastritis without mention of hemorrhage 11/21/2009 - Benign paroxysmal positional vertigo 06/10/2011 - Calculus of kidney - Cancer (HCC) - Cervicalgia - Colon polyp, hyperplastic May 2006 - Depression - Depressive disorder, not elsewhere classified - Disorder of bone and cartilage, unspecified - Disorders of bursae and tendons in shoulder region, unspecified 02/28/2008 Arthroscopic R rotator cuff and biceps tendon repair 05-08-[address] Karthik Bella at [facility] - Dysphagia prior esophageal dilations twice - Dysphagia - Dysphagia, unspecified(787.20) - Epilepsy ([facility]) 02/12/2012 - Esophageal reflux - Esophagitis, unspecified - Examination of participant in clinical trial 03/01/2010 IRB: [id number] Study Title: Pelvic floor Disorders in Bariatric Surgery Patients Visit: Baseline PI: Patricia Patel MD Supervisor Finishing Room/Pager:Mayra Mar RN # [id number] Patient seen for PFD research study (IRB 06-184). Patient agreed to participate in the QOL survey portion of the trial. Patient completed baseline survey. SIG:Mayra Mar RN - Grief 11/20/2011 - Gum symptoms - History of bladder cancer - Insomnia - Malignant neoplasm of bladder, part unspecified 02/15/2008 Biopsy 11-04: non-invasive, low grade papillary carcinoma Cystosocpy 11-[address] David López in [place]: no tumors, stones or foreign bodies Urology rec Cystoscopy in 03-07 and then q 6 mo for 3 years then yearly Urology rec antibiotics in 08-06 for chronic cystitis after voided urine for cytology: may treat for 3-6 months - Microscopic hematuria 02/21/2010 - Nasal congestion 08/18/2013 - Nasal obstruction 08/31/2014 - Obesity, unspecified 11-07-09 stated BMI 38 ht: 61 wt: 201 lbs - Obstructive sleep apnea [facility] - Other and unspecified disc disorder of thoracic region - Other and unspecified hyperlipidemia - Other pain disorders related to psychological factors 05/15/2011 - Pain in limb 06/09/2008 Pain reportedly started after a fall in the shower in 2007 [facility] 05-09: rec Neurontin Baller 06-06: pain in distribution of deep peroneal nerve, change to Lyrica and sponge MLA with met and RLD Referred to [facility] in 07-07 [facility] to manage pain meds as of 11-06 - Persistent disorder of initiating or maintaining sleep - Personal history of malignant neoplasm of bladder 08/29/2009 - 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 - Rotator cuff (capsule) sprain 11/20/2010 - Shoulder pain 05/09/2009 - Status post bariatric surgery - Thoracic or lumbosacral neuritis or radiculitis, unspecified - Unspecified hypothyroidism - Unspecified sleep apnea PAST SURGICAL HISTORY Procedure Laterality Date - APPENDECTOMY 1983 - COLONOSCOP W/ OR W/O [facility] SPEC [place] 2006 Colonoscopy - COLONOSCOP W/ OR W/O [facility] SPEC 04/10/06 Colonoscopy/ [place] - COLONOSCOP W/ OR W/O [facility] SPEC 12/01/2013 Colonoscopy - CYSTOSCOPY 2010 left stent placement - CYSTOSCOPY removal of bladder lesion- malignant. - EGD W/O [facility] SPECIMEN W/BX 03/08/08 - EGD W/O OR W/BRUSH/WASH 11/21/2009 EGD - EGD W/O OR W/BRUSH/WASH 12/01/2013 EGD - EGD W/O OR W/BRUSH/WASH 03/28/15 EGD out pt WC - KNEE SCOPE,DIAGNOSTIC Arthroscopy, knee right - PAST SURGICAL HISTORY OF adhesions, partial sigmoid resection, bladder lift - PAST SURGICAL HISTORY OF 2005 left Hammertoe correction right 2nd and 3rd toes - PAST SURGICAL HISTORY OF 1992 Left shoulder surgery - PAST SURGICAL HISTORY OF 09/07 left shoulder - PAST SURGICAL HISTORY OF 03-09-10 Bariatric, with hernia repair. - PAST SURGICAL HISTORY OF 1983 oophrectomy - RECONSTRUCT PROX HUMERAL IMPLANT 2006 Arthroplasty, shoulder right - REMOVAL GALLBLADDER 1980 Cholecystectomy - TOTAL ABDOM HYSTERECTOMY 1982 Hysterectomy, LUIS FAMILY HISTORY Problem Relation Age of Onset - Stroke Mother - Heart Mother - Hypertension Mother - Diabetes Mother - GI Mother colitis - Alzheimer's Disease Father - Heart Father Bypass - Breast Cancer Paternal Aunt - Breast Cancer Paternal Grandmother - GI Sister colitis Social History: Social History Substance Use Topics - Smoking status: Never Smoker - Smokeless tobacco: Never Used - Alcohol use No No current facility-administered medications on file prior to encounter. Current Outpatient Prescriptions on File Prior to Encounter: OTEZLA 30 mg tablet traZODone (DESYREL) 100 mg tablet Take 3 tablets by mouth daily at bedtime. Ranitidine HCl (ZANTAC) 300 mg tablet Take 1 tablet by mouth once daily. methocarbamol (ROBAXIN) 750 mg tablet Take 1 tablet by mouth three times daily. PRN spasms and pain lamoTRIgine (LAMICTAL) 100 mg tablet Take 1 tablet by mouth twice daily. ARIPiprazole (ABILIFY) 5 mg tablet Take 2 tablets by mouth once daily. modafinil (PROVIGIL) 100 mg tablet Take 1 tablet by mouth as needed. cholecalciferol, Vitamin D3, (VITAMIN D3) 50,000 unit cap capsule Take 1 capsule by mouth once each week. levothyroxine (SYNTHROID) 50 mcg tablet Take one tablet by mouth once daily, and 1/2 tablet on Sundays. CPAP Mask (per patient preference) optional chin strap (if indicated), filters, tubing / heated tubing, heated humidity and lifetime supplies. Dx. JUVENAL G47.33 327.23 CPAP AutoSV EPAP min= 12 cmH2O, PS min-max = 3-19voV2Q, Max pressure = 25 cmH2O, Rate =Auto, lifetime supplies, Dx: G47.33, G47.37 diclofenac sodium (VOLTAREN) 1 % topical gel Apply 2 g to affected area four times daily. APREMILAST (OTEZLA ORAL) Take 1 tablet by mouth twice daily. DOCUSATE CALCIUM (STOOL SOFTENER ORAL) Take 1 tablet by mouth twice daily. oxybutynin XL (DITROPAN XL) 10 mg 24 hr tablet Take 10 mg by mouth once daily. ASCORBIC ACID (VITAMIN C ORAL) Take 1 tablet by mouth once daily. Biotin 10,000 mcg cap Take by mouth twice daily. Coenzyme Q10 200 mg cap Take 200 mg by mouth twice daily. HYDROcodone-acetaminophen 5-325 mg per tablet Take 1 tablet by mouth every 8 hours as needed. pregabalin 150 mg capsule Take 1 capsule by mouth once daily. Dr Lance (Patient taking differently: Take 150 mg by mouth twice daily. Dr Lance) MAGNESIUM OXIDE/MAG AA CHELATE (MAGNESIUM ORAL) Take 1 tablet by mouth twice daily. LACTOBACILLUS RHAMNOSUS GG (PROBIOTIC ORAL) Take 1 capsule by mouth daily at bedtime. Cyanocobalamin (VITAMIN B-12) 1,000 mcg ORAL Lozg Take 1,000 mcg by mouth once daily. FE PS CMPLX/ASCORBIC ACID (IRON PS COMPLEX-ASCORBIC ACID ORAL) Take 1 tablet by mouth daily at bedtime. LIDOCAINE 5 % (700 MG/PATCH) ADHESIVE PATCH Apply one patch to each hip daily. Remove patch after 12 hours. as needed MULTIVITAMIN TAB daily vitamin b complex(B COMPLEX TAB) Take one(1) tablet daily. Zolpidem (AMBIEN CR) 12.5 mg CR tablet Take 1 tablet by mouth at bedtime as needed for Sedation (generic acceptable) for up to 7 days. BUTRANS 10 mcg/hour Apply 1 Patch as directed every Friday for 12 days. (Dr. Lance) fluticasone (FLONASE) 50 mcg/actuation nasal spray Use 2 Sprays in each nostril once daily. Rinse mouth after use. zoledronic acid (RECLAST) 5 mg/100 mL pgbk PREMIX piggyback Inject 100 mL intravenously every year. >IV - Start IV START IV Current Facility-Administered Medications: lidocaine 10 mg/mL (1 %) 1-2 mg injection (XYLOCAINE) 0.1- 0.2 mL INTRADERMAL PRN Frannie Merritt lactated ringers infusion 5-30 mL/hr INTRAVENOUS CONTINUOUS Frannie Merritt Last Rate: 30 mL/hr at 08/19/17 1100 30 mL/hr at 08/19/17 1100 Allergies: ALLERGIES Allergen Reactions - Effexor [Venlafaxin* Intolerance headaches - Anticholinergics - * cogentin - Codiene [Other] chest pain - Cogentin [Benztropi* Body went rigid - Dex Rachelle [Other] Medrol dose pack: hallucinatios, diff walking - Keflex [Cephalexin] Intolerance makes pt too drowsy - Phenothiazines compazine-1 sided facial weakness (like stroke) - Roxicet [Oxycodone-* Itching REVIEW OF SYSTEMS: REVIEW OF SYSTEMS: As stated in Active Problem List/ Past Medical History ANESTHESIOLOGY REVIEW: Airway Assessment: MP 2; Neck ROM: Full ROM without neurologic symptoms; Airway Evaluation: Short Thyromental Distance Symptoms of Sleep Apnea: Age over 50 (67 year old) Intubation History: No previous history of difficult intubation Dentition: Missing tooth upper left ADDITIONAL PHYSICAL EXAM: Lungs: Lungs clear to auscultation. Good diaphragmatic excursion. Cardiac: normal S1 and S2; no rubs, no murmurs, and no gallops Additional Pertinent Findings: N/A ADVERSE ANESTHESIA EVENT: No history of adverse event FAMILY HIISTORY OF ANESTHESIA: No known issues BLOOD PRODUCTS: Not anticipated for this procedure OTHER MEDICAL PROBLEMS: None I have interviewed and examined the patient. I have reviewed the medical record and/or the pre-anesthesia evaluation, pertinent labs, and test results. Significant changes in the patient's condition since the History and Physical, not otherwise documented in primary service progress notes: No Anesthetic risks, benefits, alternatives, personnel and consent discussed: Yes ANES REVIEW: This contains information obtained greater than 48 hours prior to the Surgery/Procedure. See Day of Surgery Note SIGNATURE: Sosa Palma MD PATIENT NAME: Frannie Gallardotle DATE: August 19, 2017 TIME: 11:46 AM PAGER/CONTACT #: HISTORY PHYSICAL Observed: 08/18/2017 Status: COMPLETED Source: [place] 8:27 PM [facility] [place] [facility] O ID: [id number] Author: Frannie Merritt Service: (none) Author Type: Physician Type: HANDP Filed: 08/18/2017 8:27 PM Note Text: HISTORY AND PHYSICAL ? Franniemarbin Romo 1950 ? REFERRING PHYSICIAN: Daljit Gutierrez (Teresa), A* ? CHIEF COMPLAINT: Abdominal Pain (burning/throb/stabbing) ? HPI: The patient is a 67 year old female referred for evaluation of abdominal pain. The patient notes a long-standing history of epigastric discomfort x several years, worsening in the last few months. She states the pain is always in the same location just below the middle of her ribcage area, but varies in character-may be throbbing, burning, stabbing or a combination of the three. Denies radiation of pain. She states the pain is always present but varies in intensity from mild to severe. She denies any reflux symptoms currently. Pain may occur after eating or on an empty stomach-she notes she has not yet had anything to eat today and currently has a gnawing pain. Patient has prior history of Domneico-en-Y gastric bypass in 2009. She has had several upper endoscopies done since that time for evaluation of abdominal complaints and dysphagia, most recently in [address] Bear with no worrisome findings. She has had esophageal manometry in 2014 which showed elevated LES pressure with normal LES relaxation. The patient is concerned however as she notes her epigastric pain has become more constant, and states a close friend's family member was experiencing similar symptoms which were then diagnosed as cancer at [facility] and he shortly thereafter. ? The patient was evaluated by her PCP who initiated patient on ranitidine and referred her for GI evaluation. The patient was scheduled for an appointment with GI later this month but requested to be seen sooner, and was referred to general surgery to expedite scheduling of endoscopy. The patient is being seen by me today at the request of Mariaelena Gutierrez CNP for opinion and advice regarding abdominal pain. ? Patient's past medical history is significant for chronic back pain for which she follows with pain management, in addition to epilepsy, hyperlipidemia, obstructive sleep apnea, history of bladder cancer, hypothyroidism. She denies any chest pain or shortness of breath, and denies any problems with sedation in the past. ? ? PAST MEDICAL HISTORY PAST MEDICAL HISTORY Diagnosis Date - Abdominal pain, unspecified site 02/28/2008 ? Reportedly had sigmoid resetion for adhesions about age 37: mutiple surgeries for adhesions, endometriosis, etc Camelia, LUIS (no comment on ovaries), cliff in sigmoid area by CT in 04-06 [facility] (Colorectal surgery) 12-05: prob small midline, incis hernia, did not rec repeat EGD/Colon/Surg-more adhesions WBC 5.8 K, HCT 43% in 01-04 Int hems ligated in 01-04 per [facility] - Abnormal glucose tolerance test 01/16/2012 - Abnormality of gait 05/01/2011 - Acute gastritis without mention of hemorrhage 11/21/2009 - Benign paroxysmal positional vertigo 06/10/2011 - Calculus of kidney ? - Cancer (HCC) ? - Cervicalgia ? - Colon polyp, hyperplastic ? ? May 2006 - Depression ? - Depressive disorder, not elsewhere classified ? - Disorder of bone and cartilage, unspecified ? - Disorders of bursae and tendons in shoulder region, unspecified 02/28/2008 ? Arthroscopic R rotator cuff and biceps tendon repair 05-08-[address] Karthik Bella at [facility] - Dysphagia ? ? prior esophageal dilations twice - Dysphagia ? - Dysphagia, unspecified(787.20) ? - Epilepsy (HCC) 02/12/2012 - Esophageal reflux ? - Esophagitis, unspecified ? - Examination of participant in clinical trial 03/01/2010 ? IRB: [id number] Study Title: Pelvic floor Disorders in Bariatric Surgery Patients Visit: Baseline PI: Patricia Patel MD Supervisor Finishing Room/Pager:Mayra Mar RN # [phone] Patient seen for PFD research study (IRB 06-022). Patient agreed to participate in the QOL survey portion of the trial. Patient completed baseline survey. SIG:Mayra Mar RN - Grief 11/20/2011 - Gum symptoms ? - History of bladder cancer ? - Insomnia ? - Malignant neoplasm of bladder, part unspecified 02/15/2008 ? Biopsy 11-04: non-invasive, low grade papillary carcinoma Cystosocpy 11-[address] David López in [place]: no tumors, stones or foreign bodies Urology rec Cystoscopy in 03-07 and then q 6 mo for 3 years then yearly Urology rec antibiotics in 08-06 for chronic cystitis after voided urine for cytology: may treat for 3-6 months - Microscopic hematuria 02/21/2010 - Nasal congestion 08/18/2013 - Nasal obstruction 08/31/2014 - Obesity, unspecified 11-07-09 ? stated BMI 38 ht: 61 wt: 201 lbs - Obstructive sleep apnea ? ? [facility] - Other and unspecified disc disorder of thoracic region ? - Other and unspecified hyperlipidemia ? - Other pain disorders related to psychological factors 05/15/2011 - Pain in limb 06/09/2008 ? Pain reportedly started after a fall in the shower in 2007 [facility] 05-09: rec Neurontin Baller 06-06: pain in distribution of deep peroneal nerve, change to Lyrica and sponge MLA with met and RLD Referred to [facility] in 07-07 [facility] to manage pain meds as of 11-06 - Persistent disorder of initiating or maintaining sleep ? 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 - Thoracic or lumbosacral neuritis or radiculitis, unspecified ? - Unspecified hypothyroidism ? - Unspecified sleep apnea ? ? ? PAST SURGICAL HISTORY PAST SURGICAL HISTORY Procedure Laterality Date - APPENDECTOMY ? 1983 - COLONOSCOP W/ OR W/O [facility] SPEC ? [place] 2006 ? Colonoscopy - COLONOSCOP W/ OR W/O [facility] SPEC ? 04/10/06 ? Colonoscopy/ [place] - COLONOSCOP W/ OR W/O [facility] SPEC ? 12/01/2013 ? Colonoscopy - CYSTOSCOPY ? 2010 ? left stent placement - CYSTOSCOPY ? ? ? removal of bladder lesion- malignant. - EGD W/O [facility] SPECIMEN W/BX ? 03/08/08 - EGD W/O OR W/BRUSH/WASH ? 11/21/2009 ? EGD - EGD W/O OR W/BRUSH/WASH ? 12/01/2013 ? EGD - EGD W/O OR W/BRUSH/WASH ? 03/28/15 ? [facility] pt [facility] - KNEE SC[facility],DIAGNOSTIC ? ? ? Arthroscopy, knee right - PAST SURGICAL HISTORY OF ? ? ? adhesions, partial sigmoid resection, bladder lift - PAST SURGICAL HISTORY OF ? 2005 ? left Hammertoe correction right 2nd and 3rd toes - PAST SURGICAL HISTORY OF ? 1992 ? Left shoulder surgery - PAST SURGICAL HISTORY OF ? 09/07 ? left shoulder - PAST SURGICAL HISTORY OF ? 03-09-10 ? Bariatric, with hernia repair. - PAST SURGICAL HISTORY OF ? 1983 ? oophrectomy - RECONSTRUCT PROX HUMERAL IMPLANT ? 2006 ? Arthroplasty, shoulder right - REMOVAL GALLBLADDER ? 1980 ? Cholecystectomy - TOTAL ABDOM HYSTERECTOMY ? 1982 ? Hysterectomy, LUIS ? ? ? CURRENT MEDICATIONS ? Current Outpatient Prescriptions: OTEZLA 30 mg tablet ? traZODone (DESYREL) 100 mg tablet Take 3 tablets by mouth daily at bedtime. diphenhydramine HCl (DIPHENHYDRAMINE - NYSTATIN - LIDOCAINE) Use 10 mL as instructed twice daily for 14 days. Ranitidine HCl (ZANTAC) 300 mg tablet Take 1 tablet by mouth once daily. methocarbamol (ROBAXIN) 750 mg tablet Take 1 tablet by mouth three times daily. PRN spasms and pain Zolpidem (AMBIEN CR) 12.5 mg CR tablet Take 1 tablet by mouth at bedtime as needed for Sedation (generic acceptable) for up to 7 days. lamoTRIgine (LAMICTAL) 100 mg tablet Take 1 tablet by mouth twice daily. BUTRANS 10 mcg/hour Apply 1 Patch as directed every Friday for 12 days. (Dr. Lance) fluticasone (FLONASE) 50 mcg/actuation nasal spray Use 2 Sprays in each nostril once daily. Rinse mouth after use. ARIPiprazole (ABILIFY) 5 mg tablet Take 2 tablets by mouth once daily. zoledronic acid (RECLAST) 5 mg/100 mL pgbk PREMIX piggyback Inject 100 mL intravenously every year. modafinil (PROVIGIL) 100 mg tablet Take 1 tablet by mouth as needed. cholecalciferol, Vitamin D3, (VITAMIN D3) 50,000 unit cap capsule Take 1 capsule by mouth once each week. levothyroxine (SYNTHROID) 50 mcg tablet Take one tablet by mouth once daily, and 1/2 tablet on Sundays. CPAP Mask (per patient preference) optional chin strap (if indicated), filters, tubing / heated tubing, heated humidity and lifetime supplies. Dx. JUVENAL G47.33 327.23 CPAP AutoSV EPAP min= 12 cmH2O, PS min-max = [id number], Max pressure = 25 cmH2O, Rate =Auto, lifetime supplies, Dx: G47.33, G47.37 diclofenac sodium (VOLTAREN) 1 % topical gel Apply 2 g to affected area four times daily. >IV - Start IV START IV APREMILAST (OTEZLA ORAL) Take 1 tablet by mouth twice daily. DOCUSATE CALCIUM (STOOL SOFTENER ORAL) Take 1 tablet by mouth twice daily. oxybutynin XL (DITROPAN XL) 10 mg 24 hr tablet Take 10 mg by mouth once daily. ASCORBIC ACID (VITAMIN C ORAL) Take 1 tablet by mouth once daily. Biotin 10,000 mcg cap Take by mouth twice daily. Coenzyme Q10 200 mg cap Take 200 mg by mouth twice daily. HYDROcodone-acetaminophen 5-325 mg per tablet Take 1 tablet by mouth every 8 hours as needed. pregabalin 150 mg capsule Take 1 capsule by mouth once daily. Dr Lance (Patient taking differently: Take 150 mg by mouth twice daily. Dr Lance) MAGNESIUM OXIDE/MAG AA CHELATE (MAGNESIUM ORAL) Take 1 tablet by mouth twice daily. LACTOBACILLUS RHAMNOSUS GG (PROBIOTIC ORAL) Take 1 capsule by mouth daily at bedtime. Cyanocobalamin (VITAMIN B-12) 1,000 mcg ORAL Lozg Take 1,000 mcg by mouth once daily. FE PS CMPLX/ASCORBIC ACID (IRON PS COMPLEX-ASCORBIC ACID ORAL) Take 1 tablet by mouth daily at bedtime. LIDOCAINE 5 % (700 MG/PATCH) ADHESIVE PATCH Apply one patch to each hip daily. Remove patch after 12 hours. as needed MULTIVITAMIN TAB daily vitamin b complex(B COMPLEX TAB) Take one(1) tablet daily. ? No current facility-administered medications for this visit. ? ALLERGIES: Effexor [Venlafaxine Hcl]; Anticholinergics - Quaternary; Codiene [Other]; Cogentin [Benztropine Mesylate]; Dex Rachelle [Other]; Keflex [Cephalexin]; Phenothiazines; Roxicet [Oxycodone-Acetaminophen] ? PERSONAL HISTORY: SOCIAL HISTORY Social History Marital status: Spouse name: Seng Years of education: Number of children: 2 ? Social History Main Topics Smoking status: Never Smoker ? Smokeless tobacco: Never Used Alcohol use: No Drug use: No ? FAMILY HISTORY: FAMILY HISTORY FAMILY HISTORY Problem Relation Age of Onset - Stroke Mother ? - Heart Mother ? - Hypertension Mother ? - Diabetes Mother ? - GI Mother ? ? ? colitis - Alzheimer's Disease Father ? - Heart Father ? ? ? Bypass - Breast Cancer Paternal Aunt ? - Breast Cancer Paternal Grandmother ? - GI Sister ? ? ? colitis ? ? REVIEW OF SYMPTOMS: The review of systems data was entered by the nurse and reviewed by me ? Nursing Notes: Terri De Leon LPN 08/13/2017 9:00 AM Signed REVIEW OF SYSTEMS: General: The patient NOTES fatigue, denies weight loss, denies weight gain, denies feeling hot, and denies feelings of cold. Eyes: The patient denies glaucoma, denies eye injury/surgery, wears glasses or contacts. Ear/Nose/Throat: The patient denies allergies, denies hayfever, denies ear infections, and denies bloody noses. Cardiovascular: The patient denies chest pain, denies heart disease, denies high blood pressure,denies cardiac stent, denies prior heart attack, denies irregular heart beat, denies high cholesterol, denies poor circulation, denies heart failure, other cardiac issues, denies claudication, denies cold feet, denies peripheral arterial stent. Respiratory: The patient denies tuberculosis, denies pneumonia, denies frequent cough, denies pulmonary embolism, denies shortness of breath, and denies coughing up blood. Gastrointestinal: The patient denies difficulty swallowing, denies acid reflux, denies ulcers, denies vomiting, denies jaundice/hepatitis, NOTES gallbladder problems, denies black or tarry stools, denies hemorrhoids, denies bleeding from rectum, denies diverticulitis, denies constipation, denies diarrhea, denies loss of stool control, and denies hernias. Kidney/Bladder: The patient NOTES kidney stones, denies urine infections, and denies bloody urine. Skin: The patient NOTES a history of skin cancer, denies bleeding/changing moles, and denies a history of skin rash. Neurologic: The patient NOTES a history of epilepsy/convulsions, NOTES headaches, denies head/spinal injuries, and denies stroke/TIA. Psychiatric: The patient denies psychiatric medications, NOTES depression, and denies voices, denies substance abuse. Endocrine: The patient NOTES thyroid disorders, denies diabetes, and denies hormonal problems. Hematologic: The patient denies a history of bruising, denies bleeding, and denies anemia, denies blood clots. Infections: The patient NOTES a history of measles and mumps, denies rheumatic fever, and denies sexually transmitted diseases. Musculoskeletal: The patient NOTES back pain/injury, NOTES back problems, denies sciatica, denies knee/foot trouble, denies arthritis, or denies gout. ? ? When was patient's last Mammogram screening? 02/2017 ? Last Colonoscopy: 2014 ? Terri De Leon LPN I have confirmed and edited as necessary, the PFSH and ROS obtained by others. ? PHYSICAL EXAMINATION: ? General: The patient is 67 year old female, well nourished, well hydrated in no acute distress. The patient is oriented to time, place, and person. ? VITALS: Blood pressure 98/58, pulse 76, weight 47.6 kg (105 lb). Body mass index is 20.51 kg/m?. ? HEENT: Normal cephalic, ataumatic, pupils are equally round, sclera are anicteric, mucous membranes are moist, oropharynx is clear. Neck has no masses, asymmetry or lymphadenopathy. ? Respiratory: Clear to auscultation and percussion. Normal respiratory excursion and pattern. ? Cardiac: Examination is regular rate and rhythm. ? Abdominal exam: Soft, nontender, with no palpable masses. No hepatosplenomegaly. No palpable hernias. ? Rectal exam: exam deferred ? Extremities: no clubbing, cyanosis or edema. No adenopathy. ? Other: ? LABORATORY VALUES: As Noted ? RADIOLOGIC STUDIES: As Noted ? ? Assessment IMPRESSION: progressive epigastric abdominal pain, history of Domenico-en-Y gastric bypass ? PLAN: We will plan for upper endoscopy We discussed the risks and benefits of the planned endoscopy. I have informed the patient that complications can occur including failure to complete the endoscopy and perforation. The patient had the opportunity to ask questions concerning the planned endoscopy. My staff has also explained the procedure to the patient in understandable terms and has given the patient printed material concerning the procedure. The patient freely consents to surgery. ? The patient takes prescription medications which I feel decrease the chance of successful sedation. I therefore plan for monitored anesthetic care. ? The patient may still benefit from evaluation by GI, to be further determined based on endoscopy findings ? Diagnoses: (R10.13) Epigastric abdominal pain (primary encounter diagnosis) (Z98.84) History of gastric bypass ? My findings have been communicated to Dr. Gutierrez via shared medical record. This note will be forwarded to Dr. Sun Bennett MD. Return to Clinic: The patient is instructed to follow-up with me 1 week post operatively. ? Nuvia Francisco PA-C NURSING PROG Observed: 08/14/2017 Status: COMPLETED Source: [place] 1:13 PM [facility] [place] REPOSITORY HNO ID: [id number] Author: Nori WoodsonRn) LOU Mckeon Service: Gastroenterology Author Type: Registered Nurse Type: Nursing Progress Note Filed: 08/14/2017 1:13 PM Note Text: Pre call completed. PROGRESS Observed: 08/13/2017 Status: COMPLETED Source: [place] 9:26 AM [facility] [place] RE[facility]IT[facility] HNO ID: [id number] Author: Nuvia Francisco (Pa) Service: (none) Author Type: Physician Electric Furnace Operator Type: Progress Notes Filed: 08/15/2017 10:58 AM Note Text: HISTORY AND PHYSICAL Frannie Romo 1950 REFERRING PHYSICIAN: Daljit Gutierrez (Teresa)Marbin* CHIEF COMPLAINT: Abdominal Pain (burning/throb/stabbing) HPI: The patient is a 67 year old female referred for evaluation of abdominal pain. The patient notes a long-standing history of epigastric discomfort x several years, worsening in the last few months. She states the pain is always in the same location just below the middle of her ribcage area, but varies in character-may be throbbing, burning, stabbing or a combination of the three. Denies radiation of pain. She states the pain is always present but varies in intensity from mild to severe. She denies any reflux symptoms currently. Pain may occur after eating or on an empty stomach-she notes she has not yet had anything to eat today and currently has a gnawing pain. Patient has prior history of Domenico-en-Y gastric bypass in 2009. She has had several upper endoscopies done since that time for evaluation of abdominal complaints and dysphagia, most recently in [address] Bear with no worrisome findings. She has had esophageal manometry in 2013 which showed elevated LES pressure with normal LES relaxation. The patient is concerned however as she notes her epigastric pain has become more constant, and states a close friend's family member was experiencing similar symptoms which were then diagnosed as cancer at [facility] junction and he shortly thereafter. The patient was evaluated by her PCP who initiated patient on ranitidine and referred her for GI evaluation. The patient was scheduled for an appointment with GI later this month but requested to be seen sooner, and was referred to general surgery to expedite scheduling of endoscopy. The patient is being seen by me today at the request of Mariaelena Gutierrez CNP for opinion and advice regarding abdominal pain. Patient's past medical history is significant for chronic back pain for which she follows with pain management, in addition to epilepsy, hyperlipidemia, obstructive sleep apnea, history of bladder cancer, hypothyroidism. She denies any chest pain or shortness of breath, and denies any problems with sedation in the past. PAST MEDICAL HISTORY Diagnosis Date - Abdominal pain, unspecified site 02/28/2008 Reportedly had sigmoid resetion for adhesions about age 37: mutiple surgeries for adhesions, endometriosis, etc Camelia, LUIS (no comment on ovaries), cliff in sigmoid area by CT in 04-06 [facility] (Colorectal surgery) 12-05: prob small midline, incis hernia, did not rec repeat EGD/Colon/Surg-more adhesions WBC 5.8 K, HCT 43% in 01-04 Int hems ligated in 01-04 per [facility] - Abnormal glucose tolerance test 01/16/2012 - Abnormality of gait 05/01/2011 - Acute gastritis without mention of hemorrhage 11/21/2009 - Benign paroxysmal positional vertigo 06/10/2011 - Calculus of kidney - Cancer (HCC) - Cervicalgia - Colon polyp, hyperplastic May 2006 - Depression - Depressive disorder, not elsewhere classified - Disorder of bone and cartilage, unspecified - Disorders of bursae and tendons in shoulder region, unspecified 02/28/2008 Arthroscopic R rotator cuff and biceps tendon repair 05-08-[address] Karthik Bella at [facility] - Dysphagia prior esophageal dilations twice - Dysphagia - Dysphagia, unspecified(787.20) - Epilepsy ([facility]) 02/12/2012 - Esophageal reflux - Esophagitis, unspecified - Examination of participant in clinical trial 03/01/2010 IRB: [id number] Study Title: Pelvic floor Disorders in Bariatric Surgery Patients Visit: Baseline PI: Patricia Patel MD Supervisor Finishing Room/Pager:Mayra Mar RN # [phone] Patient seen for PFD research study (IRB 06-184). Patient agreed to participate in the QOL survey portion of the trial. Patient completed baseline survey. SIG:Mayra Mar RN - Grief 11/20/2011 - Gum symptoms - History of bladder cancer - Insomnia - Malignant neoplasm of bladder, part unspecified 02/15/2008 Biopsy 11-04: non-invasive, low grade papillary carcinoma Cystosocpy 11-[address] David López in [place]: no tumors, stones or foreign bodies Urology rec Cystoscopy in 03-07 and then q 6 mo for 3 years then yearly Urology rec antibiotics in 08-06 for chronic cystitis after voided urine for cytology: may treat for 3-6 months - Microscopic hematuria 02/21/2010 - Nasal congestion 08/18/2013 - Nasal obstruction 08/31/2014 - Obesity, unspecified 11-07-09 stated BMI 38 ht: 61 wt: 201 lbs - Obstructive sleep apnea [facility] - Other and unspecified disc disorder of thoracic region - Other and unspecified hyperlipidemia - Other pain disorders related to psychological factors 05/15/2011 - Pain in limb 06/09/2008 Pain reportedly started after a fall in the shower in 2007 [facility] 05-09: rec Neurontin [facility] 06-06: pain in distribution of deep peroneal nerve, change to Lyrica and sponge MLA with met and RLD Referred to [facility] in 07-07 [facility] to manage pain meds as of 11-06 - Persistent disorder of initiating or maintaining sleep - Personal history of malignant neoplasm of bladder 08/29/2009 - 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 - Rotator cuff (capsule) sprain 11/20/2010 - Shoulder pain 05/09/2009 - Status post bariatric surgery - Thoracic or lumbosacral neuritis or radiculitis, unspecified - Unspecified hypothyroidism - Unspecified sleep apnea PAST SURGICAL HISTORY Procedure Laterality Date - APPENDECTOMY 1983 - COLONOSCOP W/ OR W/O [facility] SPEC [place] 2006 Colonoscopy - COLONOSCOP W/ OR W/O [facility] SPEC 04/10/06 Colonoscopy/ [place] - COLONOSCOP W/ OR W/O [facility] SPEC 12/01/2013 Colonoscopy - CYSTOSCOPY 2010 left stent placement - CYSTOSCOPY removal of bladder lesion- malignant. - EGD W/O [facility] SPECIMEN W/BX 03/08/08 - EGD W/O OR W/BRUSH/WASH 11/21/2009 EGD - EGD W/O OR W/BRUSH/WASH 12/01/2013 EGD - EGD W/O OR W/BRUSH/WASH 03/28/15 E[facility] out pt [facility]DIAGNOSTIC Arthroscopy, knee right - PAST SURGICAL HISTORY OF adhesions, partial sigmoid resection, bladder lift - PAST SURGICAL HISTORY OF 2005 left Hammertoe correction right 2nd and 3rd toes - PAST SURGICAL HISTORY OF 1992 Left shoulder surgery - PAST SURGICAL HISTORY OF 09/07 left shoulder - PAST SURGICAL HISTORY OF 03-09-10 Bariatric, with hernia repair. - PAST SURGICAL HISTORY OF 1983 oophrectomy - RECONSTRUCT PROX HUMERAL IMPLANT 2006 Arthroplasty, shoulder right - REMOVAL GALLBLADDER 1980 Cholecystectomy - TOTAL ABDOM HYSTERECTOMY 1982 Hysterectomy, LUIS Current Outpatient Prescriptions: OTEZLA 30 mg tablet traZODone (DESYREL) 100 mg tablet Take 3 tablets by mouth daily at bedtime. diphenhydramine HCl (DIPHENHYDRAMINE - NYSTATIN - LIDOCAINE) Use 10 mL as instructed twice daily for 14 days. Ranitidine HCl (ZANTAC) 300 mg tablet Take 1 tablet by mouth once daily. methocarbamol (ROBAXIN) 750 mg tablet Take 1 tablet by mouth three times daily. PRN spasms and pain Zolpidem (AMBIEN CR) 12.5 mg CR tablet Take 1 tablet by mouth at bedtime as needed for Sedation (generic acceptable) for up to 7 days. lamoTRIgine (LAMICTAL) 100 mg tablet Take 1 tablet by mouth twice daily. BUTRANS 10 mcg/hour Apply 1 Patch as directed every Friday for 12 days. (Dr. Lance) fluticasone (FLONASE) 50 mcg/actuation nasal spray Use 2 Sprays in each nostril once daily. Rinse mouth after use. ARIPiprazole (ABILIFY) 5 mg tablet Take 2 tablets by mouth once daily. zoledronic acid (RECLAST) 5 mg/100 mL pgbk PREMIX piggyback Inject 100 mL intravenously every year. modafinil (PROVIGIL) 100 mg tablet Take 1 tablet by mouth as needed. cholecalciferol, Vitamin D3, (VITAMIN D3) 50,000 unit cap capsule Take 1 capsule by mouth once each week. levothyroxine (SYNTHROID) 50 mcg tablet Take one tablet by mouth once daily, and 1/2 tablet on Sundays. CPAP Mask (per patient preference) optional chin strap (if indicated), filters, tubing / heated tubing, heated humidity and lifetime supplies. Dx. JUVENAL G47.33 327.23 CPAP AutoSV EPAP min= 12 cmH2O, PS min-max = [id number], Max pressure = 25 cmH2O, Rate =Auto, lifetime supplies, Dx: G47.33, G47.37 diclofenac sodium (VOLTAREN) 1 % topical gel Apply 2 g to affected area four times daily. >IV - Start IV START IV APREMILAST (OTEZLA ORAL) Take 1 tablet by mouth twice daily. DOCUSATE CALCIUM (STOOL SOFTENER ORAL) Take 1 tablet by mouth twice daily. oxybutynin XL (DITROPAN XL) 10 mg 24 hr tablet Take 10 mg by mouth once daily. ASCORBIC ACID (VITAMIN C ORAL) Take 1 tablet by mouth once daily. Biotin 10,000 mcg cap Take by mouth twice daily. Coenzyme Q10 200 mg cap Take 200 mg by mouth twice daily. HYDROcodone-acetaminophen 5-325 mg per tablet Take 1 tablet by mouth every 8 hours as needed. pregabalin 150 mg capsule Take 1 capsule by mouth once daily. Dr Lance (Patient taking differently: Take 150 mg by mouth twice daily. Dr Lance) MAGNESIUM OXIDE/MAG AA CHELATE (MAGNESIUM ORAL) Take 1 tablet by mouth twice daily. LACTOBACILLUS RHAMNOSUS GG (PROBIOTIC ORAL) Take 1 capsule by mouth daily at bedtime. Cyanocobalamin (VITAMIN B-12) 1,000 mcg ORAL Lozg Take 1,000 mcg by mouth once daily. FE PS CMPLX/ASCORBIC ACID (IRON PS COMPLEX-ASCORBIC ACID ORAL) Take 1 tablet by mouth daily at bedtime. LIDOCAINE 5 % (700 MG/PATCH) ADHESIVE PATCH Apply one patch to each hip daily. Remove patch after 12 hours. as needed MULTIVITAMIN TAB daily vitamin b complex(B COMPLEX TAB) Take one(1) tablet daily. No current facility-administered medications for this visit. ALLERGIES: Effexor [Venlafaxine Hcl]; Anticholinergics - Quaternary; Codiene [Other]; Cogentin [Benztropine Mesylate]; Dex Rachelle [Other]; Keflex [Cephalexin]; Phenothiazines; Roxicet [Oxycodone-Acetaminophen] PERSONAL HISTORY: Social History Marital status: Spouse name: Seng Years of education: Number of children: 2 Social History Main Topics Smoking status: Never Smoker Smokeless tobacco: Never Used Alcohol use: No Drug use: No FAMILY HISTORY: FAMILY HISTORY Problem Relation Age of Onset - Stroke Mother - Heart Mother - Hypertension Mother - Diabetes Mother - GI Mother colitis - Alzheimer's Disease Father - Heart Father Bypass - Breast Cancer Paternal Aunt - Breast Cancer Paternal Grandmother - GI Sister colitis REVIEW OF SYMPTOMS: The review of systems data was entered by the nurse and reviewed by ky Nursing Notes: Terri De Leon LPN 08/13/2017 9:00 AM Signed REVIEW OF SYSTEMS: General: The patient NOTES fatigue, denies weight loss, denies weight gain, denies feeling hot, and denies feelings of cold. Eyes: The patient denies glaucoma, denies eye injury/surgery, wears glasses or contacts. Ear/Nose/Throat: The patient denies allergies, denies hayfever, denies ear infections, and denies bloody noses. Cardiovascular: The patient denies chest pain, denies heart disease, denies high blood pressure,denies cardiac stent, denies prior heart attack, denies irregular heart beat, denies high cholesterol, denies poor circulation, denies heart failure, other cardiac issues, denies claudication, denies cold feet, denies peripheral arterial stent. Respiratory: The patient denies tuberculosis, denies pneumonia, denies frequent cough, denies pulmonary embolism, denies shortness of breath, and denies coughing up blood. Gastrointestinal: The patient denies difficulty swallowing, denies acid reflux, denies ulcers, denies vomiting, denies jaundice/hepatitis, NOTES gallbladder problems, denies black or tarry stools, denies hemorrhoids, denies bleeding from rectum, denies diverticulitis, denies constipation, denies diarrhea, denies loss of stool control, and denies hernias. Kidney/Bladder: The patient NOTES kidney stones, denies urine infections, and denies bloody urine. Skin: The patient NOTES a history of skin cancer, denies bleeding/changing moles, and denies a history of skin rash. Neurologic: The patient NOTES a history of epilepsy/convulsions, NOTES headaches, denies head/spinal injuries, and denies stroke/TIA. Psychiatric: The patient denies psychiatric medications, NOTES depression, and denies voices, denies substance abuse. Endocrine: The patient NOTES thyroid disorders, denies diabetes, and denies hormonal problems. Hematologic: The patient denies a history of bruising, denies bleeding, and denies anemia, denies blood clots. Infections: The patient NOTES a history of measles and mumps, denies rheumatic fever, and denies sexually transmitted diseases. Musculoskeletal: The patient NOTES back pain/injury, NOTES back problems, denies sciatica, denies knee/foot trouble, denies arthritis, or denies gout. When was patient's last Mammogram screening? 02/2017 Last Colonoscopy: 2014 Terri De Leon LPN I have confirmed and edited as necessary, the PFSH and ROS obtained by others. PHYSICAL EXAMINATION: General: The patient is 67 year old female, well nourished, well hydrated in no acute distress. The patient is oriented to time, place, and person. VITALS: Blood pressure 98/58, pulse 76, weight 47.6 kg (105 lb). Body mass index is 20.51 kg/m?. HEENT: Normal cephalic, ataumatic, pupils are equally round, sclera are anicteric, mucous membranes are moist, oropharynx is clear. Neck has no masses, asymmetry or lymphadenopathy. Respiratory: Clear to auscultation and percussion. Normal respiratory excursion and pattern. Cardiac: Examination is regular rate and rhythm. Abdominal exam: Soft, nontender, with no palpable masses. No hepatosplenomegaly. No palpable hernias. Rectal exam: exam deferred Extremities: no clubbing, cyanosis or edema. No adenopathy. Other: LABORATORY VALUES: As Noted RADIOLOGIC STUDIES: As Noted Assessment IMPRESSION: progressive epigastric abdominal pain, history of Domenico-en-Y gastric bypass PLAN: We will plan for upper endoscopy We discussed the risks and benefits of the planned endoscopy. I have informed the patient that complications can occur including failure to complete the endoscopy and perforation. The patient had the opportunity to ask questions concerning the planned endoscopy. My staff has also explained the procedure to the patient in understandable terms and has given the patient printed material concerning the procedure. The patient freely consents to surgery. The patient takes prescription medications which I feel decrease the chance of successful sedation. I therefore plan for monitored anesthetic care. The patient may still benefit from evaluation by GI, to be further determined based on endoscopy findings Diagnoses: (R10.13) Epigastric abdominal pain (primary encounter diagnosis) (Z98.84) History of gastric bypass My findings have been communicated to Dr. Gutierrez via shared medical record. This note will be forwarded to Dr. Sun Bennett MD. Return to Clinic: The patient is instructed to follow-up with me 1 week post operatively. PONCHO Dumont Observed: 08/13/2017 Status: COMPLETED Source: [place] 9:00 AM [facility] [place] REPOSITORY Office Visit ([facility]) CLARISSAFRANNIE Joya ([id number]) 1950 F KARLENE Date Time Provider Department 08/13/17 9:00 AM NUVIA FRANCISCO (PA) During your visit today, we recorded the following information about you: Pulse Blood pressure Weight 76/minute 98/58 47.6 kg Terri De Leon TRANSIT MIX OPERATOR 08/13/2017 9:00 AM Signed REVIEW OF SYSTEMS: General: The patient NOTES fatigue, denies weight loss, denies weight gain, denies feeling hot, and denies feelings of cold. Eyes: The patient denies glaucoma, denies eye injury/surgery, wears glasses or contacts. Ear/Nose/Throat: The patient denies allergies, denies hayfever, denies ear infections, and denies bloody noses. Cardiovascular: The patient denies chest pain, denies heart disease, denies high blood pressure,denies cardiac stent, denies prior heart attack, denies irregular heart beat, denies high cholesterol, denies poor circulation, denies heart failure, other cardiac issues, denies claudication, denies cold feet, denies peripheral arterial stent. Respiratory: The patient denies tuberculosis, denies pneumonia, denies frequent cough, denies pulmonary embolism, denies shortness of breath, and denies coughing up blood. Gastrointestinal: The patient denies difficulty swallowing, denies acid reflux, denies ulcers, denies vomiting, denies jaundice/hepatitis, NOTES gallbladder problems, denies black or tarry stools, denies hemorrhoids, denies bleeding from rectum, denies diverticulitis, denies constipation, denies diarrhea, denies loss of stool control, and denies hernias. Kidney/Bladder: The patient NOTES kidney stones, denies urine infections, and denies bloody urine. Skin: The patient NOTES a history of skin cancer, denies bleeding/changing moles, and denies a history of skin rash. Neurologic: The patient NOTES a history of epilepsy/convulsions, NOTES headaches, denies head/spinal injuries, and denies stroke/TIA. Psychiatric: The patient denies psychiatric medications, NOTES depression, and denies voices, denies substance abuse. Endocrine: The patient NOTES thyroid disorders, denies diabetes, and denies hormonal problems. Hematologic: The patient denies a history of bruising, denies bleeding, and denies anemia, denies blood clots. Infections: The patient NOTES a history of measles and mumps, denies rheumatic fever, and denies sexually transmitted diseases. Musculoskeletal: The patient NOTES back pain/injury, NOTES back problems, denies sciatica, denies knee/foot trouble, denies arthritis, or denies gout. When was patient's last Mammogram screening? 02/2017 Last Colonoscopy: 2014 Terri Francisco PA-C 08/15/2017 10:58 AM Signed HISTORY AND PHYSICAL Frannie Romo 1950 REFERRING PHYSICIAN: Daljit Gutierrez (Teresa)Marbin* CHIEF COMPLAINT: Abdominal Pain (burning/throb/stabbing) HPI: The patient is a 67 year old female referred for evaluation of abdominal pain. The patient notes a long-standing history of epigastric discomfort x several years, worsening in the last few months. She states the pain is always in the same location just below the middle of her ribcage area, but varies in character-may be throbbing, burning, stabbing or a combination of the three. Denies radiation of pain. She states the pain is always present but varies in intensity from mild to severe. She denies any reflux symptoms currently. Pain may occur after eating or on an empty stomach-she notes she has not yet had anything to eat today and currently has a gnawing pain. Patient has prior history of Domenico-en-Y gastric bypass in 2009. She has had several upper endoscopies done since that time for evaluation of abdominal complaints and dysphagia, most recently [place] [address] Bear with no worrisome findings. She has had esophageal manometry in 2013 which showed elevated LES pressure with normal LES relaxation. The patient is concerned however as she notes her epigastric pain has become more constant, and states a close friend's family member was experiencing similar symptoms which were then diagnosed as cancer at [facility] and he shortly thereafter. The patient was evaluated by her PCP who initiated patient on ranitidine and referred her for GI evaluation. The patient was scheduled for an appointment with GI later this month but requested to be seen sooner, and was referred to general surgery to expedite scheduling of endoscopy. The patient is being seen by me today at the request of Mariaelena Gutierrez CNP for opinion and advice regarding abdominal pain. Patient's past medical history is significant for chronic back pain for which she follows with pain management, in addition to epilepsy, hyperlipidemia, obstructive sleep apnea, history of bladder cancer, hypothyroidism. She denies any chest pain or shortness of breath, and denies any problems with sedation in the past. PAST MEDICAL HISTORY Diagnosis Date - Abdominal pain, unspecified site 02/28/2008 Reportedly had sigmoid resetion for adhesions about age 37: mutiple surgeries for adhesions, endometriosis, etc Camelia, LUIS (no comment on ovaries), cliff in sigmoid area by CT in 04-06 [facility] (Colorectal surgery) 12-05: prob small midline, incis hernia, did not rec repeat EGD/Colon/Surg-more adhesions WBC 5.8 K, HCT 43% in 01-04 Int hems ligated in 01-04 per [facility] - Abnormal glucose tolerance test 01/16/2012 - Abnormality of gait 05/01/2011 - Acute gastritis without mention of hemorrhage 11/21/2009 - Benign paroxysmal positional vertigo 06/10/2011 - Calculus of kidney - Cancer (HCC) - Cervicalgia - Colon polyp, hyperplastic May 2006 - Depression - Depressive disorder, not elsewhere classified - Disorder of bone and cartilage, unspecified - Disorders of bursae and tendons in shoulder region, unspecified 02/28/2008 Arthroscopic R rotator cuff and biceps tendon repair 05-08-[address] Karthik Bella at [facility] - Dysphagia prior esophageal dilations twice - Dysphagia - Dysphagia, unspecified(787.20) - Epilepsy (HCC) 02/12/2012 - Esophageal reflux - Esophagitis, unspecified - Examination of participant in clinical trial 03/01/2010 IRB: [id number] Study Title: Pelvic floor Disorders in Bariatric Surgery Patients Visit: Baseline PI: Patricia Patel MD Supervisor Finishing Room/Pager:Mayra Mar RN # [phone] Patient seen for PFD research study (IRB 06- 184). Patient agreed to participate in the QOL survey portion of the trial. Patient completed baseline survey. SIG:Mayra Mar RN - Grief 11/20/2011 - Gum symptoms - History of bladder cancer - Insomnia - Malignant neoplasm of bladder, part unspecified 02/15/2008 Biopsy 11-04: non-invasive, low grade papillary carcinoma Cystosocpy 11-[address] David López in [place]: no tumors, stones or foreign bodies Urology rec Cystoscopy in 03-07 and then q 6 mo for 3 years then yearly Urology rec antibiotics in 08-06 for chronic cystitis after voided urine for cytology: may treat for 3-6 months - Microscopic hematuria 02/21/2010 - Nasal congestion 08/18/2013 - Nasal obstruction 08/31/2014 - Obesity, unspecified 11-07-09 stated BMI 38 ht: 61 wt: 201 lbs - Obstructive sleep apnea [facility] - Other and unspecified disc disorder of thoracic region - Other and unspecified hyperlipidemia - Other pain disorders related to psychological factors 05/15/2011 - Pain in limb 06/09/2008 Pain reportedly started after a fall in the shower in 2007 Junior 05-09: rec Neurontin Baller 06-06: pain in distribution of deep peroneal nerve, change to Lyrica and sponge MLA with met and RLD Referred to [facility] in 07-07 [facility]ali to manage pain meds as of 11-06 - Persistent disorder of initiating or maintaining sleep - Personal history of malignant neoplasm of bladder 08/29/2009 - 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 - Rotator cuff (capsule) sprain 11/20/2010 - Shoulder pain 05/09/2009 - Status post bariatric surgery - Thoracic or lumbosacral neuritis or radiculitis, unspecified - Unspecified hypothyroidism - Unspecified sleep apnea PAST SURGICAL HISTORY Procedure Laterality Date - APPENDECTOMY 1984 - COLONOSCOP W/ OR W/O [facility] SPEC [place] 2006 Colonoscopy - COLONOSCOP W/ OR W/O [facility] SPEC 04/10/06 Colonoscopy/ [place] - COLONOSCOP W/ OR W/O [facility] SPEC 12/01/2013 Colonoscopy - CYSTOSCOPY 2010 left stent placement - CYSTOSCOPY removal of bladder lesion- malignant. - EGD W/O [facility] SPECIMEN W/BX 03/08/08 - EGD W/O OR W/BRUSH/WASH 11/21/2009 EGD - EGD W/O OR W/BRUSH/WASH 12/01/2013 EGD - EGD W/O OR W/BRUSH/WASH 03/28/15 EGD out pt [facility] - KNEE SCOPE,DIAGNOSTIC Arthroscopy, knee right - PAST SURGICAL HISTORY OF adhesions, partial sigmoid resection, bladder lift - PAST SURGICAL HISTORY OF 2006 left Hammertoe correction right 2nd and 3rd toes - PAST SURGICAL HISTORY OF 1992 Left shoulder surgery - PAST SURGICAL HISTORY OF 09/07 left shoulder - PAST SURGICAL HISTORY OF 03-09-10 Bariatric, with hernia repair. - PAST SURGICAL HISTORY OF 1983 oophrectomy - RECONSTRUCT PROX HUMERAL IMPLANT 2006 Arthroplasty, shoulder right - REMOVAL GALLBLADDER 1980 Cholecystectomy - TOTAL ABDOM HYSTERECTOMY 1982 Hysterectomy, LUIS Current Outpatient Prescriptions: OTEZLA 30 mg tablet traZODone (DESYREL) 100 mg tablet Take 3 tablets by mouth daily at bedtime. diphenhydramine HCl (DIPHENHYDRAMINE - NYSTATIN - LIDOCAINE) Use 10 mL as instructed twice daily for 14 days. Ranitidine HCl (ZANTAC) 300 mg tablet Take 1 tablet by mouth once daily. methocarbamol (ROBAXIN) 750 mg tablet Take 1 tablet by mouth three times daily. PRN spasms and pain Zolpidem (AMBIEN CR) 12.5 mg CR tablet Take 1 tablet by mouth at bedtime as needed for Sedation (generic acceptable) for up to 7 days. lamoTRIgine (LAMICTAL) 100 mg tablet Take 1 tablet by mouth twice daily. BUTRANS 10 mcg/hour Apply 1 Patch as directed every Friday for 12 days. (Dr. Lance) fluticasone (FLONASE) 50 mcg/actuation nasal spray Use 2 Sprays in each nostril once daily. Rinse mouth after use. ARIPiprazole (ABILIFY) 5 mg tablet Take 2 tablets by mouth once daily. zoledronic acid (RECLAST) 5 mg/100 mL pgbk PREMIX piggyback Inject 100 mL intravenously every year. modafinil (PROVIGIL) 100 mg tablet Take 1 tablet by mouth as needed. cholecalciferol, Vitamin D3, (VITAMIN D3) 50,000 unit cap capsule Take 1 capsule by mouth once each week. levothyroxine (SYNTHROID) 50 mcg tablet Take one tablet by mouth once daily, and 1/2 tablet on Sundays. CPAP Mask (per patient preference) optional chin strap (if indicated), filters, tubing / heated tubing, heated humidity and lifetime supplies. Dx. JUVENAL G47.33 327.23 CPAP AutoSV EPAP min= 12 cmH2O, PS min-max = [id number], Max pressure = 25 cmH2O, Rate =Auto, lifetime supplies, Dx: G47.33, G47.37 diclofenac sodium (VOLTAREN) 1 % topical gel Apply 2 g to affected area four times daily. >IV - Start IV START IV APREMILAST (OTEZLA ORAL) Take 1 tablet by mouth twice daily. DOCUSATE CALCIUM (STOOL SOFTENER ORAL) Take 1 tablet by mouth twice daily. oxybutynin XL (DITROPAN XL) 10 mg 24 hr tablet Take 10 mg by mouth once daily. ASCORBIC ACID (VITAMIN C ORAL) Take 1 tablet by mouth once daily. Biotin 10,000 mcg cap Take by mouth twice daily. Coenzyme Q10 200 mg cap Take 200 mg by mouth twice daily. HYDROcodone-acetaminophen 5-325 mg per tablet Take 1 tablet by mouth every 8 hours as needed. pregabalin 150 mg capsule Take 1 capsule by mouth once daily. Dr Lance (Patient taking differently: Take 150 mg by mouth twice daily. Dr Lance) MAGNESIUM OXIDE/MAG AA CHELATE (MAGNESIUM ORAL) Take 1 tablet by mouth twice daily. LACTOBACILLUS RHAMNOSUS GG (PROBIOTIC ORAL) Take 1 capsule by mouth daily at bedtime. Cyanocobalamin (VITAMIN B-12) 1,000 mcg ORAL Lozg Take 1,000 mcg by mouth once daily. FE PS CMPLX/ASCORBIC ACID (IRON PS COMPLEX-ASCORBIC ACID ORAL) Take 1 tablet by mouth daily at bedtime. LIDOCAINE 5 % (700 MG/PATCH) ADHESIVE PATCH Apply one patch to each hip daily. Remove patch after 12 hours. as needed MULTIVITAMIN TAB daily vitamin b complex(B COMPLEX TAB) Take one(1) tablet daily. No current facility-administered medications for this visit. ALLERGIES: Effexor [Venlafaxine Hcl]; Anticholinergics - Quaternary; Codiene [Other]; Cogentin [Benztropine Mesylate]; Dex Rachelle [Other]; Keflex [Cephalexin]; Phenothiazines; Roxicet [Oxycodone-Acetaminophen] PERSONAL HISTORY: Social History Marital status: Spouse name: Seng Years of education: Number of children: 2 Social History Main Topics Smoking status: Never Smoker Smokeless tobacco: Never Used Alcohol use: No Drug use: No FAMILY HISTORY: FAMILY HISTORY Problem Relation Age of Onset - Stroke Mother - Heart Mother - Hypertension Mother - Diabetes Mother - GI Mother colitis - Alzheimer's Disease Father - Heart Father Bypass - Breast Cancer Paternal Aunt - Breast Cancer Paternal Grandmother - GI Sister colitis REVIEW OF SYMPTOMS: The review of systems data was entered by the nurse and reviewed by me Nursing Notes: Terri De Leon LPN 08/13/2017 9:00 AM Signed REVIEW OF SYSTEMS: General: The patient NOTES fatigue, denies weight loss, denies weight gain, denies feeling hot, and denies feelings of cold. Eyes: The patient denies glaucoma, denies eye injury/surgery, wears glasses or contacts. Ear/Nose/Throat: The patient denies allergies, denies hayfever, denies ear infections, and denies bloody noses. Cardiovascular: The patient denies chest pain, denies heart disease, denies high blood pressure,denies cardiac stent, denies prior heart attack, denies irregular heart beat, denies high cholesterol, denies poor circulation, denies heart failure, other cardiac issues, denies claudication, denies cold feet, denies peripheral arterial stent. Respiratory: The patient denies tuberculosis, denies pneumonia, denies frequent cough, denies pulmonary embolism, denies shortness of breath, and denies coughing up blood. Gastrointestinal: The patient denies difficulty swallowing, denies acid reflux, denies ulcers, denies vomiting, denies jaundice/hepatitis, NOTES gallbladder problems, denies black or tarry stools, denies hemorrhoids, denies bleeding from rectum, denies diverticulitis, denies constipation, denies diarrhea, denies loss of stool control, and denies hernias. Kidney/Bladder: The patient NOTES kidney stones, denies urine infections, and denies bloody urine. Skin: The patient NOTES a history of skin cancer, denies bleeding/changing moles, and denies a history of skin rash. Neurologic: The patient NOTES a history of epilepsy/convulsions, NOTES headaches, denies head/spinal injuries, and denies stroke/TIA. Psychiatric: The patient denies psychiatric medications, NOTES depression, and denies voices, denies substance abuse. Endocrine: The patient NOTES thyroid disorders, denies diabetes, and denies hormonal problems. Hematologic: The patient denies a history of bruising, denies bleeding, and denies anemia, denies blood clots. Infections: The patient NOTES a history of measles and mumps, denies rheumatic fever, and denies sexually transmitted diseases. Musculoskeletal: The patient NOTES back pain/injury, NOTES back problems, denies sciatica, denies knee/foot trouble, denies arthritis, or denies gout. When was patient's last Mammogram screening? 02/2017 Last Colonoscopy: 2014 Terri De Leon LPN I have confirmed and edited as necessary, the PFSH and ROS obtained by others. PHYSICAL EXAMINATION: General: The patient is 67 year old female, well nourished, well hydrated in no acute distress. The patient is oriented to time, place, and person. VITALS: Blood pressure 98/58, pulse 76, weight 47.6 kg (105 lb). Body mass index is 20.51 kg/m?. HEENT: Normal cephalic, ataumatic, pupils are equally round, sclera are anicteric, mucous membranes are moist, oropharynx is clear. Neck has no masses, asymmetry or lymphadenopathy. Respiratory: Clear to auscultation and percussion. Normal respiratory excursion and pattern. Cardiac: Examination is regular rate and rhythm. Abdominal exam: Soft, nontender, with no palpable masses. No hepatosplenomegaly. No palpable hernias. Rectal exam: exam deferred Extremities: no clubbing, cyanosis or edema. No adenopathy. Other: LABORATORY VALUES: As Noted RADIOLOGIC STUDIES: As Noted Assessment IMPRESSION: progressive epigastric abdominal pain, history of Domenico-en-Y gastric bypass PLAN: We will plan for upper endoscopy We discussed the risks and benefits of the planned endoscopy. I have informed the patient that complications can occur including failure to complete the endoscopy and perforation. The patient had the opportunity to ask questions concerning the planned endoscopy. My staff has also explained the procedure to the patient in understandable terms and has given the patient printed material concerning the procedure. The patient freely consents to surgery. The patient takes prescription medications which I feel decrease the chance of successful sedation. I therefore plan for monitored anesthetic care. The patient may still benefit from evaluation by GI, to be further determined based on endoscopy findings Diagnoses: (R10.13) Epigastric abdominal pain (primary encounter diagnosis) (Z98.84) History of gastric bypass My findings have been communicated to Dr. Gutierrez via shared medical record. This note will be forwarded to Dr. Sun Bennett MD. Return to Clinic: The patient is instructed to follow-up with me 1 week post operatively. Nuvia Francisco PA-C Referring Provider: DALJIT GUTIERREZ (TERESA) [[id number]] Allergies As of Date: 08/13/2017 Noted Allergy Reaction EFFEXOR (VENLAFAXINE HCL) 01/01/2010 5 - Intolerance Comments: headaches ANTICHOLINERGICS - QUATERNARY 01/04/2003 Comments: amy Codiene [Other] 01/04/2003 Comments: chest pain GEORGIAENTIN (BENZTROPINE MESYLATE) 03/16/2008 Comments: Body went rigid dex rachelle [Other] 03/16/2008 Comments: Medrol dose pack: hallucinatios, diff walking KEFLEX (CEPHALEXIN) 12/18/2011 5 - Intolerance Comments: makes pt too drowsy PHENOTHIAZINES 01/04/2003 Comments: compazine-1 sided facial weakness (like stroke) ROXICET (OXYCODONE-ACETAMINOPHEN) 03/15/2010 9 - Itching Date Reviewed: 08/13/2017 Reviewed by: Nuvia Francisco (Pa) - Fully Assessed Reason for Visit: Abdominal Pain [1] Cmt: burning/throb/stabbing Primary Visit Diagnosis:Epigastric abdominal pain [R10.13] Other Visit Diagnosis:History of gastric bypass [Z98.84] Order(s):EGD [[id number]] Order #: [id number] FUTURE Prescriptions as of 08/13/2017 Sig: OTEZLA 30 MG TABLET TRAZODONE 100 MG TABLET Take 3 tablets by mouth daily* DIPHENHYDRAMINE - NYSTATIN - * Use 10 mL as instructed twice* RANITIDINE 300 MG TABLET Take 1 tablet by mouth once d* METHOCARBAMOL 750 MG TABLET Take 1 tablet by mouth three * ZOLPIDEM ER 12.5 MG TABLET,EX* Take 1 tablet by mouth at bed* LAMOTRIGINE 100 MG TABLET Take 1 tablet by mouth twice * BUTRANS 10 MCG/HOUR TRANSDERM* Apply 1 Patch as directed jose alfredo* FLUTICASONE 50 MCG/ACTUATION * Use 2 Sprays in each nostril * ARIPIPRAZOLE 5 MG TABLET Take 2 tablets by mouth once * ZOLEDRONIC ACID 5 MG/100 ML I* Inject 100 mL intravenously e* MODAFINIL 100 MG TABLET Take 1 tablet by mouth as nee* CHOLECALCIFEROL (VITAMIN D3) * Take 1 capsule by mouth once * LEVOTHYROXINE 50 MCG TABLET Take one tablet by mouth once* CPAP Mask (per patient preference)* CPAP AutoSV EPAP min= 12 cmH2O, PS* DICLOFENAC 1 % TOPICAL GEL Apply 2 g to affected area fo* COMPOUNDED PRESCRIPTION START IV OTEZLA ORAL Take 1 tablet by mouth twice * STOOL SOFTENER ORAL Take 1 tablet by mouth twice * OXYBUTYNIN CHLORIDE ER 10 MG * Take 10 mg by mouth once vashti* VITAMIN C ORAL Take 1 tablet by mouth once d* BIOTIN 10,000 MCG CAPSULE Take by mouth twice daily. COENZYME Q10 200 MG CAPSULE Take 200 mg by mouth twice da* HYDROCODONE 5 MG-ACETAMINOPHE* Take 1 tablet by mouth every * PREGABALIN 150 MG CAPSULE Take 1 capsule by mouth once * Patient taking differently: Take 150 mg by mouth twice da* MAGNESIUM ORAL Take 1 tablet by mouth twice * PROBIOTIC ORAL Take 1 capsule by mouth daily* CYANOCOBALAMIN (VIT B-12) 1,0* Take 1,000 mcg by mouth once * IRON PS COMPLEX-ASCORBIC ACID* Take 1 tablet by mouth daily * LIDOCAINE 5 % TOPICAL PATCH Apply one patch to each hip d* MULTIVITAMIN TABLET daily B COMPLEX TABLET,EXTENDED REL* Take one(1) tablet daily. More... More... Problem List As Of Date 08/13/2017 Noted Resolved Obesity, unspecified [E66.9] INVALID FOR*09/18/2012 More... More... Depressive disorder, not elsewhere classified [*INVALID FOR*10/21/2012 More... Mixed hyperlipidemia [E78.2] INVALID FOR* More... BONE AND CARTILAGE DIS NOS [M89.9, M94.9] INVALID FOR* More... Hypothyroidism [E03.9] INVALID FOR* More... Unspecified sleep apnea [G47.30] INVALID FOR*06/20/2014 More... More... Radiculopathy, lumbar region [M54.16] INVALID FOR* More... More... DISC DIS NEC/NOS-THORAC [M51.9] INVALID FOR* More... CERVICALGIA [M54.2] INVALID FOR* More... More... More... Vitamin D deficiency [E55.9] INVALID FOR* More... More... Insomnia [G47.00] 04/13/2014 Chronic insomnia [F51.04] INVALID FOR*04/13/2014 Class: Chronic More... 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 Obstructive Sleep apnea - AHI 48 [G47.33] INVALID FOR* More... Osteoporosis, unspecified [M81.0] INVALID FOR*08/09/2014 Osteoporosis [M81.0] INVALID FOR* More... Central sleep apnea in conditions classified el*INVALID FOR* DDD (degenerative disc disease), cervical [M50.*INVALID FOR* DDD (degenerative disc disease), lumbar [M51.36]INVALID FOR* Chronic pain [G89.29] INVALID FOR* Memory deficits [R41.3] INVALID FOR* Onychomycosis [B35.1] INVALID FOR* More... Psoriatic arthritis (HCC) [L40.50] INVALID FOR* Rotator cuff arthropathy, left [M12.812] INVALID FOR* Cervical radiculopathy [M54.12] INVALID FOR* Chronic bilateral low back pain with bilateral *INVALID FOR* Epigastric abdominal pain [R10.13] INVALID FOR* More... History of gastric bypass [Z98.84] INVALID FOR* More... Visit Notes: >> Terri De Leon LPN FriAugust 13, 2017 8:59 AM Status: Signed REVIEW OF SYSTEMS: General: The patient NOTES fatigue, denies weight loss, denies weight gain, denies feeling hot, and denies feelings of cold. Eyes: The patient denies glaucoma, denies eye injury/surgery, wears glasses or contacts. Ear/Nose/Throat: The patient denies allergies, denies hayfever, denies ear infections, and denies bloody noses. Cardiovascular: The patient denies chest pain, denies heart disease, denies high blood pressure,denies cardiac stent, denies prior heart attack, denies irregular heart beat, denies high cholesterol, denies poor circulation, denies heart failure, other cardiac issues, denies claudication, denies cold feet, denies peripheral arterial stent. Respiratory: The patient denies tuberculosis, denies pneumonia, denies frequent cough, denies pulmonary embolism, denies shortness of breath, and denies coughing up blood. Gastrointestinal: The patient denies difficulty swallowing, denies acid reflux, denies ulcers, denies vomiting, denies jaundice/hepatitis, NOTES gallbladder problems, denies black or tarry stools, denies hemorrhoids, denies bleeding from rectum, denies diverticulitis, denies constipation, denies diarrhea, denies loss of stool control, and denies hernias. Kidney/Bladder: The patient NOTES kidney stones, denies urine infections, and denies bloody urine. Skin: The patient NOTES a history of skin cancer, denies bleeding/changing moles, and denies a history of skin rash. Neurologic: The patient NOTES a history of epilepsy/convulsions, NOTES headaches, denies head/spinal injuries, and denies stroke/TIA. Psychiatric: The patient denies psychiatric medications, NOTES depression, and denies voices, denies substance abuse. Endocrine: The patient NOTES thyroid disorders, denies diabetes, and denies hormonal problems. Hematologic: The patient denies a history of bruising, denies bleeding, and denies anemia, denies blood clots. Infections: The patient NOTES a history of measles and mumps, denies rheumatic fever, and denies sexually transmitted diseases. Musculoskeletal: The patient NOTES back pain/injury, NOTES back problems, denies sciatica, denies knee/foot trouble, denies arthritis, or denies gout. When was patient's last Mammogram screening? 02/2017 Last Colonoscopy: 2014 Terri De Leon LPN Medications Discontinued During This Encounter traZODone (DESYREL) 100 mg tablet 270 * 3 12/25/2016 08/13/2017 Route: ORAL Sig: Take 3 tablets by mouth daily at bedtime. Disc: Reason for discontinue is not on file. Zolpidem (AMBIEN CR) 12.5 mg CR tabl* 4 ta* 0 08/04/2017 08/13/2017 Class: Print RX Route: ORAL Sig: Take 1 tablet by mouth at bedtime as needed for Sedation for up to 4 days. Disc: Reason for discontinue is not on file. Zolpidem (AMBIEN CR) 12.5 mg CR tabl* 90 t* 1 06/19/2017 08/13/2017 Class: Print RX Route: ORAL Sig: Take 1 tablet by mouth at bedtime as needed for Sedation (generic acceptable) for up to 180 days. Disc: Reason for discontinue is not on file. Follow-up and Disposition History Recorded Encounter Status:Closed by NUVIA FRANCISCO PA-C on 08/15/17 HOSP Observed: 08/13/2017 Status: COMPLETED Source: [place] 12:00 AM [facility] [place] REPOSITORY Patient:Frannie Romo MRN: <[id number]> Height:5' 0(1.524 m) Weight:103 lb (46.72 kg) Outpatient Medications as of 08/19/17: OTEZLA 30 mg tablet traZODone (DESYREL) 100 mg tablet Ranitidine HCl (ZANTAC) 300 mg tablet methocarbamol (ROBAXIN) 750 mg tablet Zolpidem (AMBIEN CR) 12.5 mg CR tablet lamoTRIgine (LAMICTAL) 100 mg tablet BUTRANS 10 mcg/hour fluticasone (FLONASE) 50 mcg/actuation nasal spray ARIPiprazole (ABILIFY) 5 mg tablet zoledronic acid (RECLAST) 5 mg/100 mL pgbk PREMIX piggyback modafinil (PROVIGIL) 100 mg tablet cholecalciferol, Vitamin D3, (VITAMIN D3) 50,000 unit cap capsule levothyroxine (SYNTHROID) 50 mcg tablet CPAP CPAP diclofenac sodium (VOLTAREN) 1 % topical gel >IV - Start IV APREMILAST (OTEZLA ORAL) DOCUSATE CALCIUM (STOOL SOFTENER ORAL) oxybutynin XL (DITROPAN XL) 10 mg 24 hr tablet ASCORBIC ACID (VITAMIN C ORAL) Biotin 10,000 mcg cap Coenzyme Q10 200 mg cap HYDROcodone-acetaminophen 5-325 mg per tablet pregabalin 150 mg capsule MAGNESIUM OXIDE/MAG AA CHELATE (MAGNESIUM ORAL) LACTOBACILLUS RHAMNOSUS GG (PROBIOTIC ORAL) Cyanocobalamin (VITAMIN B-12) 1,000 mcg ORAL Lozg FE PS CMPLX/ASCORBIC ACID (IRON PS COMPLEX-ASCORBIC ACID ORAL) LIDOCAINE 5 % (700 MG/PATCH) ADHESIVE PATCH MULTIVITAMIN TAB vitamin b complex(B COMPLEX TAB) Admission/Clinic Administered Medications as of 08/19/17: lidocaine 10 mg/mL (1 %) 1-2 mg injection (XYLOCAINE) lactated ringers infusion 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] Epilepsy (HCC) [G40.909] 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] Psychophysiological insomnia [F51.04] Obstructive Sleep apnea - AHI 48 [G47.33] Osteoporosis [M81.0] Central sleep apnea in conditions classified elsewhere(327.27) [G47.37] DDD (degenerative disc disease), cervical [M50.30] DDD (degenerative disc disease), lumbar [M51.36] Chronic pain [G89.29] Memory deficits [R41.3] Onychomycosis [B35.1] Psoriatic arthritis (HCC) [L40.50] Rotator cuff arthropathy, left [M12.812] Cervical radiculopathy [M54.12] Chronic bilateral low back pain with bilateral sciatica [M54.42, M54.41, G89.29] Epigastric abdominal pain [R10.13] History of gastric bypass [Z98.84] Allergies: Effexor [Venlafaxine Hcl] Anticholinergics - Quaternary Codiene [Other] Cogentin [Benztropine Mesylate] dex rachelle [Other] Keflex [Cephalexin] Phenothiazines Roxicet [Oxycodone-Acetaminophen] Date Verified: 08/19/17 Lab Values Lab Value Units Date High Low POTA* 4.2 mmol/L 07/30/2017 5.1 3.7 DAVID* 43.1 % 07/30/2017 46.0 36.0 Progress Notes ([facility]): Mingo Bella Surg Coord 08/13/2017 11:27 AM Signed 08-19-2017 ROD Aguila Bella Surg Coord Progress Notes ([facility]): Terri De Leon TRANSIT MIX OPERATOR 08/13/2017 9:00 AM Signed REVIEW OF SYSTEMS: General: The patient NOTES fatigue, denies weight loss, denies weight gain, denies feeling hot, and denies feelings of cold. Eyes: The patient denies glaucoma, denies eye injury/surgery, wears glasses or contacts. Ear/Nose/Throat: The patient denies allergies, denies hayfever, denies ear infections, and denies bloody noses. Cardiovascular: The patient denies chest pain, denies heart disease, denies high blood pressure,denies cardiac stent, denies prior heart attack, denies irregular heart beat, denies high cholesterol, denies poor circulation, denies heart failure, other cardiac issues, denies claudication, denies cold feet, denies peripheral arterial stent. Respiratory: The patient denies tuberculosis, denies pneumonia, denies frequent cough, denies pulmonary embolism, denies shortness of breath, and denies coughing up blood. Gastrointestinal: The patient denies difficulty swallowing, denies acid reflux, denies ulcers, denies vomiting, denies jaundice/hepatitis, NOTES gallbladder problems, denies black or tarry stools, denies hemorrhoids, denies bleeding from rectum, denies diverticulitis, denies constipation, denies diarrhea, denies loss of stool control, and denies hernias. Kidney/Bladder: The patient NOTES kidney stones, denies urine infections, and denies bloody urine. Skin: The patient NOTES a history of skin cancer, denies bleeding/changing moles, and denies a history of skin rash. Neurologic: The patient NOTES a history of epilepsy/convulsions, NOTES headaches, denies head/spinal injuries, and denies stroke/TIA. Psychiatric: The patient denies psychiatric medications, NOTES depression, and denies voices, denies substance abuse. Endocrine: The patient NOTES thyroid disorders, denies diabetes, and denies hormonal problems. Hematologic: The patient denies a history of bruising, denies bleeding, and denies anemia, denies blood clots. Infections: The patient NOTES a history of measles and mumps, denies rheumatic fever, and denies sexually transmitted diseases. Musculoskeletal: The patient NOTES back pain/injury, NOTES back problems, denies sciatica, denies knee/foot trouble, denies arthritis, or denies gout. When was patient's last Mammogram screening? 02/2017 Last Colonoscopy: 2014 Terri Francisco PA-C 08/15/2017 10:58 AM Signed HISTORY AND PHYSICAL Frannie Romo 1950 REFERRING PHYSICIAN: Daljit Gutierrez (Teresa), Marbin* CHIEF COMPLAINT: Abdominal Pain (burning/throb/stabbing) HPI: The patient is a 67 year old female referred for evaluation of abdominal pain. The patient notes a long-standing history of epigastric discomfort x several years, worsening in the last few months. She states the pain is always in the same location just below the middle of her ribcage area, but varies in character-may be throbbing, burning, stabbing or a combination of the three. Denies radiation of pain. She states the pain is always present but varies in intensity from mild to severe. She denies any reflux symptoms currently. Pain may occur after eating or on an empty stomach-she notes she has not yet had anything to eat today and currently has a gnawing pain. Patient has prior history of Domenico-en-Y gastric bypass in 2009. She has had several upper endoscopies done since that time for evaluation of abdominal complaints and dysphagia, most recently in [address] Bear with no worrisome findings. She has had esophageal manometry in 2013 which showed elevated LES pressure with normal LES relaxation. The patient is concerned however as she notes her epigastric pain has become more constant, and states a close friend's family member was experiencing similar symptoms which were then diagnosed as cancer at [facility] and he shortly thereafter. The patient was evaluated by her PCP who initiated patient on ranitidine and referred her for GI evaluation. The patient was scheduled for an appointment with GI later this month but requested to be seen sooner, and was referred to general surgery to expedite scheduling of endoscopy. The patient is being seen by me today at the request of Mariaelena Gutierrez CNP for opinion and advice regarding abdominal pain. Patient's past medical history is significant for chronic back pain for which she follows with pain management, in addition to epilepsy, hyperlipidemia, obstructive sleep apnea, history of bladder cancer, hypothyroidism. She denies any chest pain or shortness of breath, and denies any problems with sedation in the past. PAST MEDICAL HISTORY Diagnosis Date - Abdominal pain, unspecified site 02/28/2008 Reportedly had sigmoid resetion for adhesions about age 37: mutiple surgeries for adhesions, endometriosis, etc Camelia, LUIS (no comment on ovaries), cliff in sigmoid area by CT in 04-06 [facility] (Colorectal surgery) : prob small midline, incis hernia, did not rec repeat EGD/Colon/Surg-more adhesions WBC 5.8 K, HCT 43% in 01-04 Int hems ligated in 01-04 per [facility] - Abnormal glucose tolerance test 01/16/2012 - Abnormality of gait 05/01/2011 - Acute gastritis without mention of hemorrhage 11/21/2009 - Benign paroxysmal positional vertigo 06/10/2011 - Calculus of kidney - Cancer (HCC) - Cervicalgia - Colon polyp, hyperplastic May 2006 - Depression - Depressive disorder, not elsewhere classified - Disorder of bone and cartilage, unspecified - Disorders of bursae and tendons in shoulder region, unspecified 02/28/2008 Arthroscopic R rotator cuff and biceps tendon repair 05-08-[address] Karthik Bella at [facility] - Dysphagia prior esophageal dilations twice - Dysphagia - Dysphagia, unspecified(787.20) - Epilepsy ([facility]) 02/12/2012 - Esophageal reflux - Esophagitis, unspecified - Examination of participant in clinical trial 03/01/2010 IRB: 06 Study Title: Pelvic floor Disorders in Bariatric Surgery Patients Visit: Baseline PI: Patricia Patel MD Supervisor Finishing Room/Pager:Mayra Mar RN # [id number] Patient seen for PFD research study (IRB 06 184). Patient agreed to participate in the QOL survey portion of the trial. Patient completed baseline survey. SIG:Mayra Mar RN - Grief 11/20/2011 - Gum symptoms - History of bladder cancer - Insomnia - Malignant neoplasm of bladder, part unspecified 02/15/2008 Biopsy 11-04: non-invasive, low grade papillary carcinoma Cystosocpy 11-[address] David López in [place]: no tumors, stones or foreign bodies Urology rec Cystoscopy in 03-07 and then q 6 mo for 3 years then yearly Urology rec antibiotics in 08-06 for chronic cystitis after voided urine for cytology: may treat for 3-6 months - Microscopic hematuria 02/21/2010 - Nasal congestion 08/18/2013 - Nasal obstruction 08/31/2014 - Obesity, unspecified 11-07-09 stated BMI 38 ht: 61 wt: 201 lbs - Obstructive sleep apnea [facility] - Other and unspecified disc disorder of thoracic region - Other and unspecified hyperlipidemia - Other pain disorders related to psychological factors 05/15/2011 - Pain in limb 06/09/2008 Pain reportedly started after a fall in the shower in 2007 [place] 05-09: rec Neurontin Baller 06-06: pain in distribution of deep peroneal nerve, change to Lyrica and sponge MLA with met and RLD Referred to [facility] in 07-07 [facility] to manage pain meds as of 11-06 - Persistent disorder of initiating or maintaining sleep - Personal history of malignant neoplasm of bladder 08/29/2009 - 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 - Rotator cuff (capsule) sprain 11/20/2010 - Shoulder pain 05/09/2009 - Status post bariatric surgery - Thoracic or lumbosacral neuritis or radiculitis, unspecified - Unspecified hypothyroidism - Unspecified sleep apnea PAST SURGICAL HISTORY Procedure Laterality Date - APPENDECTOMY 1983 - COLONOSCOP W/ OR W/O [facility] SPEC [place] 2006 Colonoscopy - COLONOSCOP W/ OR W/O [facility] SPEC 04/10/06 Colonoscopy/ [place] - COLONOSCOP W/ OR W/O [facility] SPEC 12/01/2013 Colonoscopy - CYSTOSCOPY 2010 left stent placement - CYSTOSCOPY removal of bladder lesion- malignant. - EGD W/O [facility] SPECIMEN W/BX 03/08/08 - EGD W/O OR W/BRUSH/WASH 11/21/2009 EGD - EGD W/O OR W/BRUSH/WASH 12/01/2013 EGD - EGD W/O OR W/BRUSH/WASH 03/28/15 EGD out pt [facility] - KNEE SCOPE,DIAGNOSTIC Arthroscopy, knee right - PAST SURGICAL HISTORY OF adhesions, partial sigmoid resection, bladder lift - PAST SURGICAL HISTORY OF 2005 left Hammertoe correction right 2nd and 3rd toes - PAST SURGICAL HISTORY OF 1992 Left shoulder surgery - PAST SURGICAL HISTORY OF 09/07 left shoulder - PAST SURGICAL HISTORY OF 03-09-10 Bariatric, with hernia repair. - PAST SURGICAL HISTORY OF 1983 oophrectomy - RECONSTRUCT PROX HUMERAL IMPLANT 2006 Arthroplasty, shoulder right - REMOVAL GALLBLADDER 1980 Cholecystectomy - TOTAL ABDOM HYSTERECTOMY 1982 Hysterectomy, LUIS Current Outpatient Prescriptions: OTEZLA 30 mg tablet traZODone (DESYREL) 100 mg tablet Take 3 tablets by mouth daily at bedtime. diphenhydramine HCl (DIPHENHYDRAMINE - NYSTATIN - LIDOCAINE) Use 10 mL as instructed twice daily for 14 days. Ranitidine HCl (ZANTAC) 300 mg tablet Take 1 tablet by mouth once daily. methocarbamol (ROBAXIN) 750 mg tablet Take 1 tablet by mouth three times daily. PRN spasms and pain Zolpidem (AMBIEN CR) 12.5 mg CR tablet Take 1 tablet by mouth at bedtime as needed for Sedation (generic acceptable) for up to 7 days. lamoTRIgine (LAMICTAL) 100 mg tablet Take 1 tablet by mouth twice daily. BUTRANS 10 mcg/hour Apply 1 Patch as directed every Friday for 12 days. (Dr. Lance) fluticasone (FLONASE) 50 mcg/actuation nasal spray Use 2 Sprays in each nostril once daily. Rinse mouth after use. ARIPiprazole (ABILIFY) 5 mg tablet Take 2 tablets by mouth once daily. zoledronic acid (RECLAST) 5 mg/100 mL pgbk PREMIX piggyback Inject 100 mL intravenously every year. modafinil (PROVIGIL) 100 mg tablet Take 1 tablet by mouth as needed. cholecalciferol, Vitamin D3, (VITAMIN D3) 50,000 unit cap capsule Take 1 capsule by mouth once each week. levothyroxine (SYNTHROID) 50 mcg tablet Take one tablet by mouth once daily, and 1/2 tablet on Sundays. CPAP Mask (per patient preference) optional chin strap (if indicated), filters, tubing / heated tubing, heated humidity and lifetime supplies. Dx. JUVENAL G47.33 327.23 CPAP AutoSV EPAP min= 12 cmH2O, PS min-max = [id number], Max pressure = 25 cmH2O, Rate =Auto, lifetime supplies, Dx: G47.33, G47.37 diclofenac sodium (VOLTAREN) 1 % topical gel Apply 2 g to affected area four times daily. >IV - Start IV START IV APREMILAST (OTEZLA ORAL) Take 1 tablet by mouth twice daily. DOCUSATE CALCIUM (STOOL SOFTENER ORAL) Take 1 tablet by mouth twice daily. oxybutynin XL (DITROPAN XL) 10 mg 24 hr tablet Take 10 mg by mouth once daily. ASCORBIC ACID (VITAMIN C ORAL) Take 1 tablet by mouth once daily. Biotin 10,000 mcg cap Take by mouth twice daily. Coenzyme Q10 200 mg cap Take 200 mg by mouth twice daily. HYDROcodone-acetaminophen 5-325 mg per tablet Take 1 tablet by mouth every 8 hours as needed. pregabalin 150 mg capsule Take 1 capsule by mouth once daily. Dr Lance (Patient taking differently: Take 150 mg by mouth twice daily. Dr Lance) MAGNESIUM OXIDE/MAG AA CHELATE (MAGNESIUM ORAL) Take 1 tablet by mouth twice daily. LACTOBACILLUS RHAMNOSUS GG (PROBIOTIC ORAL) Take 1 capsule by mouth daily at bedtime. Cyanocobalamin (VITAMIN B-12) 1,000 mcg ORAL Lozg Take 1,000 mcg by mouth once daily. FE PS CMPLX/ASCORBIC ACID (IRON PS COMPLEX-ASCORBIC ACID ORAL) Take 1 tablet by mouth daily at bedtime. LIDOCAINE 5 % (700 MG/PATCH) ADHESIVE PATCH Apply one patch to each hip daily. Remove patch after 12 hours. as needed MULTIVITAMIN TAB daily vitamin b complex(B COMPLEX TAB) Take one(1) tablet daily. No current facility-administered medications for this visit. ALLERGIES: Effexor [Venlafaxine Hcl]; Anticholinergics - Quaternary; Codiene [Other]; Cogentin [Benztropine Mesylate]; Dex Rachelle [Other]; Keflex [Cephalexin]; Phenothiazines; Roxicet [Oxycodone-Acetaminophen] PERSONAL HISTORY: Social History Marital status: Spouse name: Seng Years of education: Number of children: 2 Social History Main Topics Smoking status: Never Smoker Smokeless tobacco: Never Used Alcohol use: No Drug use: No FAMILY HISTORY: FAMILY HISTORY Problem Relation Age of Onset - Stroke Mother - Heart Mother - Hypertension Mother - Diabetes Mother - GI Mother colitis - Alzheimer's Disease Father - Heart Father Bypass - Breast Cancer Paternal Aunt - Breast Cancer Paternal Grandmother - GI Sister colitis REVIEW OF SYMPTOMS: The review of systems data was entered by the nurse and reviewed by ky Nursing Notes: Terri De Leon BALDEV 08/13/2017 9:00 AM Signed REVIEW OF SYSTEMS: General: The patient NOTES fatigue, denies weight loss, denies weight gain, denies feeling hot, and denies feelings of cold. Eyes: The patient denies glaucoma, denies eye injury/surgery, wears glasses or contacts. Ear/Nose/Throat: The patient denies allergies, denies hayfever, denies ear infections, and denies bloody noses. Cardiovascular: The patient denies chest pain, denies heart disease, denies high blood pressure,denies cardiac stent, denies prior heart attack, denies irregular heart beat, denies high cholesterol, denies poor circulation, denies heart failure, other cardiac issues, denies claudication, denies cold feet, denies peripheral arterial stent. Respiratory: The patient denies tuberculosis, denies pneumonia, denies frequent cough, denies pulmonary embolism, denies shortness of breath, and denies coughing up blood. Gastrointestinal: The patient denies difficulty swallowing, denies acid reflux, denies ulcers, denies vomiting, denies jaundice/hepatitis, NOTES gallbladder problems, denies black or tarry stools, denies hemorrhoids, denies bleeding from rectum, denies diverticulitis, denies constipation, denies diarrhea, denies loss of stool control, and denies hernias. Kidney/Bladder: The patient NOTES kidney stones, denies urine infections, and denies bloody urine. Skin: The patient NOTES a history of skin cancer, denies bleeding/changing moles, and denies a history of skin rash. Neurologic: The patient NOTES a history of epilepsy/convulsions, NOTES headaches, denies head/spinal injuries, and denies stroke/TIA. Psychiatric: The patient denies psychiatric medications, NOTES depression, and denies voices, denies substance abuse. Endocrine: The patient NOTES thyroid disorders, denies diabetes, and denies hormonal problems. Hematologic: The patient denies a history of bruising, denies bleeding, and denies anemia, denies blood clots. Infections: The patient NOTES a history of measles and mumps, denies rheumatic fever, and denies sexually transmitted diseases. Musculoskeletal: The patient NOTES back pain/injury, NOTES back problems, denies sciatica, denies knee/foot trouble, denies arthritis, or denies gout. When was patient's last Mammogram screening? 02/2017 Last Colonoscopy: 2014 Terri De Leon LPN I have confirmed and edited as necessary, the PFSH and ROS obtained by others. PHYSICAL EXAMINATION: General: The patient is 67 year old female, well nourished, well hydrated in no acute distress. The patient is oriented to time, place, and person. VITALS: Blood pressure 98/58, pulse 76, weight 47.6 kg (105 lb). Body mass index is 20.51 kg/m?. HEENT: Normal cephalic, ataumatic, pupils are equally round, sclera are anicteric, mucous membranes are moist, oropharynx is clear. Neck has no masses, asymmetry or lymphadenopathy. Respiratory: Clear to auscultation and percussion. Normal respiratory excursion and pattern. Cardiac: Examination is regular rate and rhythm. Abdominal exam: Soft, nontender, with no palpable masses. No hepatosplenomegaly. No palpable hernias. Rectal exam: exam deferred Extremities: no clubbing, cyanosis or edema. No adenopathy. Other: LABORATORY VALUES: As Noted RADIOLOGIC STUDIES: As Noted Assessment IMPRESSION: progressive epigastric abdominal pain, history of Domenico-en-Y gastric bypass PLAN: We will plan for upper endoscopy We discussed the risks and benefits of the planned endoscopy. I have informed the patient that complications can occur including failure to complete the endoscopy and perforation. The patient had the opportunity to ask questions concerning the planned endoscopy. My staff has also explained the procedure to the patient in understandable terms and has given the patient printed material concerning the procedure. The patient freely consents to surgery. The patient takes prescription medications which I feel decrease the chance of successful sedation. I therefore plan for monitored anesthetic care. The patient may still benefit from evaluation by GI, to be further determined based on endoscopy findings Diagnoses: (R10.13) Epigastric abdominal pain (primary encounter diagnosis) (Z98.84) History of gastric bypass My findings have been communicated to Dr. Gutierrez via shared medical record. This note will be forwarded to Dr. Sun Bennett MD. Return to Clinic: The patient is instructed to follow-up with me 1 week post operatively. Nuvia Francisco PA-C FLUID/WASHING Observed: 08/12/2017 Status: F Source: [place] 2:45 PM [facility] [place] Patient: FRANNIE ROMO : 1950 (67/F) Acct Num: [id number] Phys: Emerald MCDUFFIE,Gopi Farr Unit Num: [id number] Loc: LABSPEC Specimen: [id number] Received: 08/12/17 - 1600 Spec Type: Fluid TISSUES TISSUES: Urine COMMENT Clinical correlation and appropriate follow up are necessary. CYTOLOGY GROSS Received is 20 ml of gold cloudy fluid labeled with the patient's name and and designated per the requisition as urine. Submitted for cytology preparation. / KELSEY:ayah 08/13/17 TC:5 CPT: 15285 CYTOLOGY STUDY Slides are reviewed. The specimen consists of benign squamous cells, benign urothelial cells, a few mildly atypical urothelial cells, red blood cells, inflammatory cells and numerous crystals. DIAGNOSIS CYTOLOGY Urine for cytology (cytospin): A few mildly atypical urothelial cells noted. See cytology study and comment. SJ:gavin 08/14/17 HEADER OPERATION: Not noted PRE-OP DIAGNOSIS: History bladder cancer TISSUE SUBMITTED: Urine for cytology Signed Praveen Garvey 08/14/17 <signature on file> Performed By: #### PFLU #### [facility] [address] [place], [address] CYTOLOGY, BODY FLUID / Collected: 08/12/2017 Status: F Source: [place] CSF 2:45 PM [facility] [place] [facility] Order Comment: Specimen Source: URINE TYPE CODE TESTS RESULT OUT OF RANGE REFERENCE UNITS LAB L350.1000 SEE Normal PATHOLOGY CYTOLOGY,BF REPORT /CSF Result Comment: Specimen submitted to Anatomical Pathology Department for testing. Performed By: #### L350.1000 #### [facility] [address] [place], [address] PROGRESS Observed: 08/12/2017 Status: COMPLETED Source: [place] 6:39 AM [facility] [place] HNO ID: [id number] Author: Angelique Valentin (Pt) Service: (none) Author Type: Physical Therapist Type: Progress Notes Filed: 08/12/2017 6:49 AM Note Text: Episode Visit Count: 5 Therapist That Will Oversee The Plan Of Care: Angelique Valentin PT Start of Care Date: 07/09/17 Onset Date: 07/10/07 Plan of Care Certification Date: 07/09/17 REHABILITATION AND SPORTS THERAPY PHYSICAL THERAPY DISCONTINUANCE OF CARE PLAN OF CARE UPDATE: Assessment: Frannie Romo is discontinued from Physical Therapy services due to patient not making any changes in her low back pain and limited abilty to tolerate exercise. Patient was seen for 5 visits from Start of Care Date: 07/09/17 to 08/12/2017 and treatment included: Therapeutic exercise, Manual therapy and Patient/Family/Caregiver Education. Patient found traction to be give her relief, but as soon as traction stopped the pain returned. Patient only able to tolerate a few exercises. Patient did have improved lumbar ROM. Patient may benefit from return trial to PT in the future, but is not receiving any pain relief measures from PT at this time. Patient asked therapist to forward her chart onto her spine doctor, Dr. Conde. Goals updated on 08/11/2017. [place] in home exercise program.--Partially MET Patient will decrease pain rating by 2 points to meet minimal clinical important difference for numeric pain rating scale. (Goal: for Best=3/10 and Worst=7/10)--Not MET Patient will increase active ROM of lumbar spine to Minimal limitation to allow pt to improved performance of ADLs.--MET Patient will increase strength of core to at least 4/5 to allow for perform ADLs.--Progressing Patient will report being able to lie on her sides. --MET now that she got shots in hips Demonstrate improvement on functional score: Patient will improve his/her AM-PAC T-scale score by 4 points to indicate a Minimal Clinical Important Difference. (Goal: 61.75)--Not MET G CODE REPORTING Based on clinical assessment and the score on the AM-PAC Scale Score Assessment Tool, the G code and corresponding severity modifiers are documented below. Evaluation: 07/10/2017 Current Status: Mobility: Walking and Moving Around: G8978 20-39% impaired Goal Status: Mobility: Walking and Moving Around: G8979 20-39% impaired Discharge: 08/11/2017 Goal Status: Mobility: Walking and Moving Around: G8979 20-39% impaired Discharge: Mobility: Walking and Moving Around: G8980 20- 39% impaired SUBJECTIVE: Patient stated she traveled via car to [facility] and back felt horrible. Back pain feels the same as it did when she came into PT. Bought vionic dress shoes. Pain Score: 5/10 Pain Location: Back Description: Throbbing Frequency: Continuous OBJECTIVE MEASURES WITH LEVEL OF FUNCTION: Lumbar Spine AROM Lumbar Flexion: Normal (pain at end range) Lumbar Extension: Normal (pain at end range on the R) Lumbar R Side-Bend: Minimal limitation Lumbar L Side-Bend: Normal Lumbar R Rotation: Normal Lumbar L Rotation: Normal LE Strength Trunk Strength: 3+/5 Gait: improved heel strike and toe off now that she is wearing shoes with arch support! TREATMENT: Therapeutic Exercise: 8: Suggested patient return to Dr. Conde for options as PT does not seem to be helping her at this time. 16: Encouraged patient to perform her HEP: posterior pelvic tilts, BKFO, hip 3 way, and standing with good posture as she is able to tolerate Skilled Intervention: Patient was educated in proper exercise technique and purpose for exercises. Skilled judgment was provided in selection of appropriate interventions. Patient education as noted. Encouraged patient to continue to wear shoes with good arch support Billing: [facility]: Therapeutic Exercise (25108): 1:1 time: 30 minutes (2 units: 23-37 mins) Total time: 30 minutes MARGARITO Terrell Observed: 08/12/2017 Status: COMPLETED Source: [place] 12:00 AM [facility] [place] Telephone ([employer]) FRANNIE ROMO ([id number]) 1950 F [facility] Date Time Provider Department 08/12/17 DALJIT GUTIERREZ (PSYCHIATRIC CNS) [facility] During your visit today, we recorded the following information about you: Glory Spaulding MA 08/12/2017 9:09 AM Signed Patient called in and stated that she is having severe epigastric pain. She was unable to sleep last night and she woke up in the middle of the night and took Ranitidine and that has not seemed to help her at all. She is also having dry heaves along with the severe pain. She has an appt with you on the and she doesn't feel that she can wait that long to be seen and she wants to know if she can be brought in any earlier. Please advise. Glory Jasson Gutierrez RN APRN.SRI 08/12/2017 10:32 AM Signed I would recommend that she be evaluated at the ED due to her age and history. They can evaluate her, do tests and medicate her accordingly. They need to be certain it isn't cardiac. Then I can see her as a follow up to that. Daljit Gutierrez RN APRN.[employer] Glory Spaulding MA 08/12/2017 11:05 AM Signed Contacted patient and she stated that she has already seen Elizabeth Older and she knows that it is not cardiac she thinks she has an ulcer or possibly cancer of the Esophagus which is something her brother had and he within months so refused to go to the Emergency room and asked if she could just make an appt with a surgeon to get this taken care of. She wants to know where she needs to go from here if she cannot be seen with you until the 29. She stated she can't put this off it is really worrying her. Please advise. Glory Gutierrez RN APRN.SRI 08/12/2017 11:22 AM Signed I appreciate her concerns. Please let her know I am checking to see if the PA in General Surgery can see her tomorrow. Someone will get back to her as soon as I hear something. Daljit Gutierrez RN APRN.SRI Gutierrez RN APRN.SRI 08/12/2017 1:43 PM Signed The patient requested to see a surgeon. Seeing Nuvia Francisco tomorrow morning. Daljit Gutierrez RN APRN.[employer] INSPECTOR Allergies As of Date: 08/12/2017 Noted Allergy Reaction EFFEXOR (VENLAFAXINE HCL) 01/01/2010 5 - Intolerance Comments: headaches ANTICHOLINERGICS - QUATERNARY 01/04/2003 Comments: amy Madison [Other] 01/04/2003 Comments: chest pain GEORGIAANNA (BENZTROPINE MESYLATE) 03/16/2008 Comments: Body went rigid dex rachelle [Other] 03/16/2008 Comments: Medrol dose pack: hallucinatios, diff walking KEFLEX (CEPHALEXIN) 12/18/2011 5 - Intolerance Comments: makes pt too drowsy PHENOTHIAZINES 01/04/2003 Comments: compazine-1 sided facial weakness (like stroke) ROXICET (OXYCODONE-ACETAMINOPHEN) 03/15/2010 9 - Itching Date Reviewed: 08/02/2017 Reviewed by: Pat WoodsonRn) LOU Dickson - Fully Assessed Reason for Visit: Abdominal Pain [1] Prescriptions as of 08/12/2017 Sig: ZOLPIDEM ER 12.5 MG TABLET,EX* Take 1 tablet by mouth at bed* TRAZODONE 100 MG TABLET Take 3 tablets by mouth daily* DIPHENHYDRAMINE - NYSTATIN - * Use 10 mL as instructed twice* RANITIDINE 300 MG TABLET Take 1 tablet by mouth once d* METHOCARBAMOL 750 MG TABLET Take 1 tablet by mouth three * ZOLPIDEM ER 12.5 MG TABLET,EX* Take 1 tablet by mouth at bed* ZOLPIDEM ER 12.5 MG TABLET,EX* Take 1 tablet by mouth at bed* LAMOTRIGINE 100 MG TABLET Take 1 tablet by mouth twice * BUTRANS 10 MCG/HOUR TRANSDERM* Apply 1 Patch as directed jose alfredo* FLUTICASONE 50 MCG/ACTUATION * Use 2 Sprays in each nostril * ARIPIPRAZOLE 5 MG TABLET Take 2 tablets by mouth once * ZOLEDRONIC ACID 5 MG/100 ML I* Inject 100 mL intravenously e* MODAFINIL 100 MG TABLET Take 1 tablet by mouth as nee* TRAZODONE 100 MG TABLET Take 3 tablets by mouth daily* CHOLECALCIFEROL (VITAMIN D3) * Take 1 capsule by mouth once * LEVOTHYROXINE 50 MCG TABLET Take one tablet by mouth once* CPAP Mask (per patient preference)* CPAP AutoSV EPAP min= 12 cmH2O, PS* DICLOFENAC 1 % TOPICAL GEL Apply 2 g to affected area fo* COMPOUNDED PRESCRIPTION START IV OTEZLA ORAL Take 1 tablet by mouth twice * STOOL SOFTENER ORAL Take 1 tablet by mouth twice * OXYBUTYNIN CHLORIDE ER 10 MG * Take 10 mg by mouth once vashti* VITAMIN C ORAL Take 1 tablet by mouth once d* BIOTIN 10,000 MCG CAPSULE Take by mouth twice daily. COENZYME Q10 200 MG CAPSULE Take 200 mg by mouth twice da* HYDROCODONE 5 MG-ACETAMINOPHE* Take 1 tablet by mouth every * PREGABALIN 150 MG CAPSULE Take 1 capsule by mouth once * Patient taking differently: Take 150 mg by mouth twice da* MAGNESIUM ORAL Take 1 tablet by mouth twice * PROBIOTIC ORAL Take 1 capsule by mouth daily* CYANOCOBALAMIN (VIT B-12) 1,0* Take 1,000 mcg by mouth once * IRON PS COMPLEX-ASCORBIC ACID* Take 1 tablet by mouth daily * LIDOCAINE 5 % TOPICAL PATCH Apply one patch to each hip d* MULTIVITAMIN TABLET daily B COMPLEX TABLET,EXTENDED REL* Take one(1) tablet daily. More... More... Problem List As Of Date 08/12/2017 Noted Resolved Obesity, unspecified [E66.9] INVALID FOR*09/18/2012 More... More... Depressive disorder, not elsewhere classified [*INVALID FOR*10/21/2012 More... Mixed hyperlipidemia [E78.2] INVALID FOR* More... BONE AND CARTILAGE DIS NOS [M89.9, M94.9] INVALID FOR* More... Hypothyroidism [E03.9] INVALID FOR* More... Unspecified sleep apnea [G47.30] INVALID FOR*06/20/2014 More... More... Radiculopathy, lumbar region [M54.16] INVALID FOR* More... More... DISC DIS NEC/NOS-THORAC [M51.9] INVALID FOR* More... CERVICALGIA [M54.2] INVALID FOR* More... More... More... Vitamin D deficiency [E55.9] INVALID FOR* More... More... Insomnia [G47.00] 04/13/2014 Chronic insomnia [F51.04] INVALID FOR*04/13/2014 Class: Chronic More... 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 Obstructive Sleep apnea - AHI 48 [G47.33] INVALID FOR* More... Osteoporosis, unspecified [M81.0] INVALID FOR*08/09/2014 Osteoporosis [M81.0] INVALID FOR* More... Central sleep apnea in conditions classified el*INVALID FOR* DDD (degenerative disc disease), cervical [M50.*INVALID FOR* DDD (degenerative disc disease), lumbar [M51.36]INVALID FOR* Chronic pain [G89.29] INVALID FOR* Memory deficits [R41.3] INVALID FOR* Onychomycosis [B35.1] INVALID FOR* More... Psoriatic arthritis (HCC) [L40.50] INVALID FOR* Rotator cuff arthropathy, left [M12.812] INVALID FOR* Cervical radiculopathy [M54.12] INVALID FOR* Chronic bilateral low back pain with bilateral *INVALID FOR* Encounter Status:Closed by DALJIT GUTIERREZ CNP on 08/12/17 CNTHERAPY Observed: 08/11/2017 Status: COMPLETED Source: [place] 3:30 PM [facility] [place] RE[place] OT/PT/Speech Visit (PTWS) FRANNIE ROMO ([id number]) 1950 [facility] Date Time Provider Department 08/11/17 3:30 PM ANGELIQUE VALENTIN (PT) PTWS Date Time Provider Department Center 08/11/2017 3:30 PM [id number], DIANA (PT)PTWS [facility] [place] Reason for Visit: PT Progress Note [1596] PT Discharge [752] Reason For Visit History Recorded Primary Visit Diagnosis:Chronic bilateral low back pain with bilateral sciatica [M54.42, M54.41, G89.29] Allergies As of Date: 08/11/2017 Noted Allergy Reaction EFFEXOR (VENLAFAXINE HCL) 01/01/2010 5 - Intolerance Comments: headaches ANTICHOLINERGICS - QUATERNARY 01/04/2003 Comments: georgiaentin Codiene [Other] 01/04/2003 Comments: chest pain AMY (BENZTROPINE MESYLATE) 03/16/2008 Comments: Body went rigid dex rachelle [Other] 03/16/2008 Comments: Medrol dose pack: hallucinatios, diff walking KEFLEX (CEPHALEXIN) 12/18/2011 5 - Intolerance Comments: makes pt too drowsy PHENOTHIAZINES 01/04/2003 Comments: compazine-1 sided facial weakness (like stroke) ROXICET (OXYCODONE-ACETAMINOPHEN) 03/15/2010 9 - Itching Date Reviewed: 08/02/2017 Reviewed by: Pat Dickson (Rn), RN - Fully Assessed Prescriptions as of 08/11/2017 Sig: TRAZODONE 100 MG TABLET Take 3 tablets by mouth daily* DIPHENHYDRAMINE - NYSTATIN - * Use 10 mL as instructed twice* RANITIDINE 300 MG TABLET Take 1 tablet by mouth once d* METHOCARBAMOL 750 MG TABLET Take 1 tablet by mouth three * ZOLPIDEM ER 12.5 MG TABLET,EX* Take 1 tablet by mouth at bed* LAMOTRIGINE 100 MG TABLET Take 1 tablet by mouth twice * FLUTICASONE 50 MCG/ACTUATION * Use 2 Sprays in each nostril * ARIPIPRAZOLE 5 MG TABLET Take 2 tablets by mouth once * ZOLEDRONIC ACID 5 MG/100 ML I* Inject 100 mL intravenously e* MODAFINIL 100 MG TABLET Take 1 tablet by mouth as nee* TRAZODONE 100 MG TABLET Take 3 tablets by mouth daily* CHOLECALCIFEROL (VITAMIN D3) * Take 1 capsule by mouth once * LEVOTHYROXINE 50 MCG TABLET Take one tablet by mouth once* CPAP Mask (per patient preference)* CPAP AutoSV EPAP min= 12 cmH2O, PS* DICLOFENAC 1 % TOPICAL GEL Apply 2 g to affected area fo* COMPOUNDED PRESCRIPTION START IV OTEZLA ORAL Take 1 tablet by mouth twice * STOOL SOFTENER ORAL Take 1 tablet by mouth twice * OXYBUTYNIN CHLORIDE ER 10 MG * Take 10 mg by mouth once vashti* VITAMIN C ORAL Take 1 tablet by mouth once d* BIOTIN 10,000 MCG CAPSULE Take by mouth twice daily. COENZYME Q10 200 MG CAPSULE Take 200 mg by mouth twice da* HYDROCODONE 5 MG-ACETAMINOPHE* Take 1 tablet by mouth every * PREGABALIN 150 MG CAPSULE Take 1 capsule by mouth once * Patient taking differently: Take 150 mg by mouth twice da* MAGNESIUM ORAL Take 1 tablet by mouth twice * PROBIOTIC ORAL Take 1 capsule by mouth daily* CYANOCOBALAMIN (VIT B-12) 1,0* Take 1,000 mcg by mouth once * IRON PS COMPLEX-ASCORBIC ACID* Take 1 tablet by mouth daily * LIDOCAINE 5 % TOPICAL PATCH Apply one patch to each hip d* MULTIVITAMIN TABLET daily B COMPLEX TABLET,EXTENDED REL* Take one(1) tablet daily. Progress Notes: Angelique Valentin (Pt) 08/12/2017 6:49 AM Signed Episode Visit Count: 5 Therapist That Will Oversee The Plan Of Care: Angelique Valentin PT Start of Care Date: 07/09/17 Onset Date: 07/10/07 Plan of Care Certification Date: 07/09/17 REHABILITATION AND SPORTS THERAPY PHYSICAL THERAPY DISCONTINUANCE OF CARE PLAN OF CARE UPDATE: Assessment: Frannie Romo is discontinued from Physical Therapy services due to patient not making any changes in her low back pain and limited abilty to tolerate exercise. Patient was seen for 5 visits from Start of Care Date: 07/09/17 to 08/12/2017 and treatment included: Therapeutic exercise, Manual therapy and Patient/Family/Caregiver Education. Patient found traction to be give her relief, but as soon as traction stopped the pain returned. Patient only able to tolerate a few exercises. Patient did have improved lumbar ROM. Patient may benefit from return trial to PT in the future, but is not receiving any pain relief measures from PT at this time. Patient asked therapist to forward her chart onto her spine doctor, Dr. Conde. Goals updated on 08/11/2017. [place] in home exercise program.--Partially MET Patient will decrease pain rating by 2 points to meet minimal clinical important difference for numeric pain rating scale. (Goal: for Best=3/10 and Worst=7/10)--Not MET Patient will increase active ROM of lumbar spine to Minimal limitation to allow pt to improved performance of ADLs.--MET Patient will increase strength of core to at least 4/5 to allow for perform ADLs.--Progressing Patient will report being able to lie on her sides. --MET now that she got shots in hips Demonstrate improvement on functional score: Patient will improve his/her AM-PAC T-scale score by 4 points to indicate a Minimal Clinical Important Difference. (Goal: 61.75)--Not MET G CODE REPORTING Based on clinical assessment and the score on the AM-PAC Scale Score Assessment Tool, the G code and corresponding severity modifiers are documented below. Evaluation: 07/10/2017 Current Status: Mobility: Walking and Moving Around: G8978 20-39% impaired Goal Status: Mobility: Walking and Moving Around: G8979 20-39% impaired Discharge: 08/11/2017 Goal Status: Mobility: Walking and Moving Around: G8979 20-39% impaired Discharge: Mobility: Walking and Moving Around: G8980 20- 39% impaired SUBJECTIVE: Patient stated she traveled via car to [facility] and back felt horrible. Back pain feels the same as it did when she came into PT. Bought vionic dress shoes. Pain Score: 5/10 Pain Location: Back Description: Throbbing Frequency: Continuous OBJECTIVE MEASURES WITH LEVEL OF FUNCTION: Lumbar Spine AROM Lumbar Flexion: Normal (pain at end range) Lumbar Extension: Normal (pain at end range on the R) Lumbar R Side-Bend: Minimal limitation Lumbar L Side-Bend: Normal Lumbar R Rotation: Normal Lumbar L Rotation: Normal LE Strength Trunk Strength: 3+/5 Gait: improved heel strike and toe off now that she is wearing shoes with arch support! TREATMENT: Therapeutic Exercise: 8: Suggested patient return to Dr. Conde for options as PT does not seem to be helping her at this time. 16: Encouraged patient to perform her HEP: posterior pelvic tilts, BKFO, hip 3 way, and standing with good posture as she is able to tolerate Skilled Intervention: Patient was educated in proper exercise technique and purpose for exercises. Skilled judgment was provided in selection of appropriate interventions. Patient education as noted. Encouraged patient to continue to wear shoes with good arch support Billing: [facility]: Therapeutic Exercise (22430): 1:1 time: 30 minutes (2 units: 23-37 mins) Total time: 30 minutes Angelique Barbie PT Follow-up and Disposition History Recorded ED NOTE Observed: 08/02/2017 Status: COMPLETED Source: [place] 9:59 PM [facility] REPOSITORY HNO ID: [id number] Author: Cindy Gonzales (Rn), RN Service: (none) Author Type: Registered Nurse Type: ED Notes Filed: 08/05/2017 12:24 PM Note Text: Emergency Services: ED Call Back Questionnaire SERVICE DATE: 08/02/2017 Are you feeling better? Yes Any questions about discharge instructions and follow-up care? No Were you able to make a follow up appointment? Yes Do you have any further questions? No SIGNATURE: Cindy Gonzales, LOU PATIENT NAME: Frannie Romo DATE: August 05, 2017 TIME: 12:23 PM ED NOTE Observed: 08/02/2017 Status: COMPLETED Source: [place] 9:58 PM [facility] REPOSITORY HNO ID: [id number] Author: Maria C Merritt (Rn), RN Service: (none) Author Type: Registered Nurse Type: ED Notes Filed: 08/02/2017 9:59 PM Note Text: Pt was discharged home with a prescription to fill for her oral pain Questions were answered and she was discharged home ED PROV NOTE Observed: 08/02/2017 Status: COMPLETED Source: [place] 9:44 PM [facility] REPOSITORY HNO ID: [id number] Author: Henri Mas (Pa), PA Service: (none) Author Type: Physician Electric Furnace Operator Type: ED Provider Notes Filed: 08/02/2017 9:52 PM Note Text: ED Provider Note Patient Name: Frannie Romo SERVICE DATE: 08/02/17 History Patient presents with: Mouth/Lip Problem 67-year-old female with history of remote bladder cancer status post resection, esophagitis, BPPV, and hypothyroidism presents to emergency department complaining of sores on the inside of her lips and in her mouth. Patient first noticed the sores today. She states she did go see an oral surgeon for evaluation of receding gums 2 days ago, and is concerned she may have got an infection from his gloves. She states the sores are white and sometimes painful. Denies dysphagia, odynophagia, weight loss, fever, chills, nausea, vomiting, abdominal pain, constipation, diarrhea. PAST MEDICAL HISTORY Diagnosis Date - Abdominal pain, unspecified site 02/28/2008 Reportedly had sigmoid resetion for adhesions about age 37: mutiple surgeries for adhesions, endometriosis, etc Camelia, LUIS (no comment on ovaries), cliff in sigmoid area by CT in 04-06 [facility] (Colorectal surgery) 12-05: prob small midline, incis hernia, did not rec repeat EGD/Colon/Surg-more adhesions WBC 5.8 K, HCT 43% in 01-04 Int hems ligated in 01-04 per [facility] - Abnormal glucose tolerance test 01/16/2012 - Abnormality of gait 05/01/2011 - Acute gastritis without mention of hemorrhage 11/21/2009 - Benign paroxysmal positional vertigo 06/10/2011 - Calculus of kidney - Cancer ([facility]) - Cervicalgia - Colon polyp, hyperplastic May 2006 - Depression - Depressive disorder, not elsewhere classified - Disorder of bone and cartilage, unspecified - Disorders of bursae and tendons in shoulder region, unspecified 02/28/2008 Arthroscopic R rotator cuff and biceps tendon repair 05-08-[address] Karthik Bella at [facility] - Dysphagia prior esophageal dilations twice - Dysphagia - Dysphagia, unspecified(787.20) - Epilepsy ([facility]) 02/12/2012 - Esophageal reflux - Esophagitis, unspecified - Examination of participant in clinical trial 03/01/2010 IRB: Study Title: Pelvic floor Disorders in Bariatric Surgery Patients Visit: Baseline PI: Patricia Patel MD Supervisor Finishing Room/Pager:Mayra Mar RN # [phone] Patient seen for PFD research study (IRB 06000). Patient agreed to participate in the QOL survey portion of the trial. Patient completed baseline survey. SIG:Mayra Mar RN - Grief 11/20/2011 - Gum symptoms - History of bladder cancer - Insomnia - Malignant neoplasm of bladder, part unspecified 02/15/2008 Biopsy 11-04: non-invasive, low grade papillary carcinoma Cystosocpy 11-[address] David López in [place]: no tumors, stones or foreign bodies Urology rec Cystoscopy in 03-07 and then q 6 mo for 3 years then yearly Urology rec antibiotics in 08-06 for chronic cystitis after voided urine for cytology: may treat for 3-6 months - Microscopic hematuria 02/21/2010 - Nasal congestion 08/18/2013 - Nasal obstruction 08/31/2014 - Obesity, unspecified 11-07-09 stated BMI 38 ht: 61 wt: 201 lbs - Obstructive sleep apnea [facility] - Other and unspecified disc disorder of thoracic region - Other and unspecified hyperlipidemia - Other pain disorders related to psychological factors 05/15/2011 - Pain in limb 06/09/2008 Pain reportedly started after a fall in the shower in 2007 [facility] 05-09: rec Neurontin Baller 06-06: pain in distribution of deep peroneal nerve, change to Lyrica and sponge MLA with met and RLD Referred to [facility] in 07-07 Basali to manage pain meds as of 11-06 - Persistent disorder of initiating or maintaining sleep - Personal history of malignant neoplasm of bladder 08/29/2009 - 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 - Rotator cuff (capsule) sprain 11/20/2010 - Shoulder pain 05/09/2009 - Status post bariatric surgery - Thoracic or lumbosacral neuritis or radiculitis, unspecified - Unspecified hypothyroidism - Unspecified sleep apnea PAST SURGICAL HISTORY Procedure Laterality Date - APPENDECTOMY 1983 - COLONOSCOP W/ OR W/O [facility] SPEC [place] 2006 Colonoscopy - COLONOSCOP W/ OR W/O [facility] SPEC 04/10/06 Colonoscopy/ [place] - COLONOSCOP W/ OR W/O [facility] SPEC 12/01/2013 Colonoscopy - CYSTOSCOPY 2011 left stent placement - CYSTOSCOPY removal of bladder lesion- malignant. - EGD W/O [facility] SPECIMEN W/BX 03/08/08 - EGD W/O OR W/BRUSH/WASH 11/21/2009 EGD - EGD W/O OR W/BRUSH/WASH 12/01/2013 EGD - EGD W/O OR W/BRUSH/WASH 03/28/15 [facility] out pt [facility] KNEE SCOPE,DIAGNOSTIC Arthroscopy, knee right - PAST SURGICAL HISTORY OF adhesions, partial sigmoid resection, bladder lift - PAST SURGICAL HISTORY OF 2005 left Hammertoe correction right 2nd and 3rd toes - PAST SURGICAL HISTORY OF 1992 Left shoulder surgery - PAST SURGICAL HISTORY OF 09/07 left shoulder - PAST SURGICAL HISTORY OF 03-09-10 Bariatric, with hernia repair. - PAST SURGICAL HISTORY OF 1983 oophrectomy - RECONSTRUCT PROX HUMERAL IMPLANT 2006 Arthroplasty, shoulder right - REMOVAL GALLBLADDER 1980 Cholecystectomy - TOTAL ABDOM HYSTERECTOMY 1982 Hysterectomy, LUIS FAMILY HISTORY Problem Relation Age of Onset - Stroke Mother - Heart Mother - Hypertension Mother - Diabetes Mother - GI Mother colitis - Alzheimer's Disease Father - Heart Father Bypass - Breast Cancer Paternal Aunt - Breast Cancer Paternal Grandmother - GI Sister colitis Social History Social History Main Topics - Smoking status: Never Smoker - Smokeless tobacco: Never Used - Alcohol use No - Drug use: No - Sexual activity: Not on file ALLERGIES Allergen Reactions - Effexor [Venlafaxin* Intolerance headaches - Anticholinergics - * cogentin - Codiene [Other] chest pain - Cogentin [Benztropi* Body went rigid - Dex Rachelle [Other] Medrol dose pack: hallucinatios, diff walking - Keflex [Cephalexin] Intolerance makes pt too drowsy - Phenothiazines compazine-1 sided facial weakness (like stroke) - Roxicet [Oxycodone-* Itching Review of Systems Constitutional: Negative for chills, fatigue and fever. HENT: Negative for congestion, dental problem, drooling, ear pain, facial swelling, nosebleeds, postnasal drip, rhinorrhea, sinus pressure, sneezing, sore throat and trouble swallowing. Admits to white plaques in mouth. Eyes: Negative for visual disturbance. Respiratory: Negative for cough, shortness of breath and wheezing. Cardiovascular: Negative for chest pain and palpitations. Gastrointestinal: Negative for abdominal pain, constipation, diarrhea, nausea and vomiting. Genitourinary: Negative for difficulty urinating, dysuria, flank pain and frequency. Musculoskeletal: Negative for neck pain and neck stiffness. Skin: Negative for rash and wound. Neurological: Negative for dizziness, syncope, speech difficulty, weakness, light-headedness and headaches. Physical Exam BP 116/51 Pulse 59 Temp (Src) 98 (Tympanic) Resp 16 Ht 5' 0 (1.52m) Wt 104 lb (47.2kg) SpO2 100% BMI 20.31 kg/(m2). Physical Exam Constitutional: She is oriented to person, place, and time. She appears well-developed and well-nourished. No distress. HENT: Head: Normocephalic and atraumatic. Right Ear: External ear normal. Left Ear: External ear normal. Mouth/Throat: No oropharyngeal exudate. Multiple small white plaques on buccal mucosa and soft palate. They are easily removable with a tongue blade and lie on erythematous base. Uvula is midline without swelling. No tonsillar erythema or edema. Airway is patent. Eyes: Conjunctivae are normal. Right eye exhibits no discharge. Left eye exhibits no discharge. No scleral icterus. Neck: Normal range of motion. Neck supple. No JVD present. No tracheal deviation present. Cardiovascular: Normal rate, regular rhythm and normal heart sounds. Pulmonary/Chest: Effort normal and breath sounds normal. Musculoskeletal: Normal range of motion. No peripheral edema. Moves all extremities ?4. Lymphadenopathy: She has no cervical adenopathy. Neurological: She is alert and oriented to person, place, and time. She exhibits normal muscle tone. Skin: Skin is warm and dry. She is not diaphoretic. Nursing note and vitals reviewed. Diagnostic Testing ED Labs Ordered and Reviewed - No data to display Procedures Medical Decision Making 67-year-old female with history of remote bladder cancer status post resection, esophagitis, BPPV, and hypothyroidism presents to emergency department complaining of sores on the inside of her lips and in her mouth. Patient HD stable, afebrile, and in no apparent distress. Patient has multiple white plaques that are easily removable on the buccal mucosa and soft palate, consistent with oral thrush. Remainder physical exam is unremarkable as documented. Clinically, this is thrush. Patient was given Rx for nystatin swish and swallow. Advised to follow-up with her primary care provider within one week. Advised to return to ED for new or worsening signs or symptoms including but not limited to increasing mouth pain, difficulty or painful swallowing, shortness of breath, fever, chills, spreading lesions. The above findings and plan were explained to the pt, and she demonstrated understanding and was amenable to this plan. Discharged in stable condition. ED Course ED Course: Vital signs were reviewed. Triage records were reviewed. Medical records were reviewed. Nursing notes were reviewed and incorporated. This is a new problem. Chart review from relevant prior emergency / outpatient visits were reviewed. Revenant medical history in electronic chart was reviewed. Diagnostic test results were reviewed with patient. MDM Clinical Impressions as of Aug 03 2143 Oral thrush Plan The Patient was DISCHARGED: Counseled patient regarding suspected diagnosis AND need for follow-up. Discharged home with verbal and written instructions. They were instructed to return as needed for persistent or worsening symptoms or any new concerns. Given a prescription for the following medication(s): Nystatin swish and swallow Condition at time of disposition: stable SIGNATURE: PONCHO Felipe Andrew (Alek)ALEK 08/02/172151 ED NOTE Observed: 08/02/2017 Status: COMPLETED Source: [place] 9:09 PM [facility] REPOSITORY HNO ID: [id number] Author: Pat Dickson (Rn), RN Service: (none) Author Type: Registered Nurse Type: ED Notes Filed: 08/02/2017 9:10 PM Note Text: Pt presents with c/o sores in the moth noted today. PROGRESS Observed: 07/31/2017 Status: COMPLETED Source: [place] 9:35 AM [facility] [place] REPOSITORY HNO ID: [id number] Author: Angelique (Pt) Barbie Service: (none) Author Type: Physical Therapist Type: Progress Notes Filed: 07/31/2017 9:36 AM Note Text: Patient's chart opened in error. CBC AND DIFFERENTIAL Collected: 07/30/2017 Status: F Source: [place] 9:21 AM [facility] [place] REPOSITORY TYPE CODE TESTS RESULT OUT OF REFERENCE UNITS RANGE LAB WBC 3.70-11.00 k/uL WBC 10.34 LAB RBC 3.90-5.20 m/uL RBC 4.36 LAB HGB 11.5-15.5 g/dL Hemoglobin 13.6 LAB HCT 36.0-46.0 % Hematocrit 43.1 LAB MCV 80.0-100.0 fL MCV 98.9 LAB MCH 26.0-34.0 pG MCH 31.2 LAB MCHC 30.5-36.0 g/dL MCHC 31.6 LAB RDWCV 11.5-15.0 % RDW-CV 12.5 LAB PLTCT 150-400 k/uL Platelet Count 295 LAB MPV 9.0-12.7 fL MPV 10.7 LAB ANEUT % Neut% 85.2 LAB AANEUT 1.45-7.50 k/uL Abs Neut High 8.81 LAB ALYMP % Lymph% 11.9 LAB AALYMP 1.00-4.00 k/uL Abs Lymph 1.23 LAB AMONO % Rogers% 2.8 LAB AAMONO <0.87 k/uL Abs Rogers 0.29 LAB AEOS % Eosin% 0.0 LAB AAEOS <0.46 k/uL Abs Eosin <0.03 LAB ABASO % Baso% 0.1 LAB AABASO <0.11 k/uL Abs Baso <0.03 LAB AUNRBC 0 /100 WBC NRBCs 0.0 LAB ABNRBC <0.01 k/uL Absolute nRBC <0.01 LAB DTYP DTYPE Auto Diff Performed By: #### CBCDIF, CMP, HPYLRI #### [facility] [address] [place], [place] [address] COMP METABOLIC PANEL Collected: 07/30/2017 Status: F Source: [place] 9:21 AM [facility] REPOSITORY TYPE CODE TESTS RESULT OUT OF REFERENCE UNITS RANGE LAB TP 6.3-8.0 g/dL Protein, Total 6.5 LAB ALB 3.9-4.9 g/dL Albumin 4.1 LAB CA 8.5-10.2 mg/dL Calcium, Total 8.6 LAB TBIL 0.2-1.3 mg/dL Bilirubin, Total 0.6 LAB ALKP 32-117 U/L Alkaline Phosphatase 61 LAB AST 13-35 U/L AST 21 LAB GLU 74-99 mg/dL Glucose High 120 Result Comment: The [place] Diabetes [employer] (ADA) provides guidance for cutoff values for fasting glucose and random glucose. The ADA defines fasting as no caloric intake for at least 8 hours. Fas ting plasma glucose results between 100 to 125 mg/dL indicate increased risk for diabetes (prediabetes). Fasting plasma glucose results greater than or equal to 126 mg/dL meet the criteria for diagnosis of diabetes. In the absence of unequivocal hyperglycemia, results should be confirmed by repeat testing. In a patient with classic symptoms of hyperglycemia or hyperglycemic crisis, random plasma glucose results greater than or equal to 200 mg/dL meet the criteria for diagnosis of diabetes. Reference: Standards of Medical Care in Diabetes 2016, [place] [employer]. Diabetes Care. 2016.39(Suppl 1). LAB BUN 7-21 mg/dL BUN 17 LAB CRET 0.58-0.96 mg/dL Creatinine 0.62 LAB NA 136-144 mmol/L Sodium 143 LAB K 3.7-5.1 mmol/L Potassium 4.2 LAB CL 97-105 mmol/L Chloride 104 LAB CO2 22-30 mmol/L CO2 27 LAB AGAP 9-18 mmol/L Anion Gap 12 LAB ALT 7-38 U/L ALT 21 LAB GFRAA eGFR- Amer. >60 LAB GFRNAA . eGFR-All Other Races >60 Result Comment: eGFR (Estimated GFR) Units of measure: mL/min/1.73 meters squared eGFR is derived from the reexpressed MDRD Study equation using the following parameters: serum creatinine, age, gender and race. The creatinine assay has been calibrated to be traceable to IDMS. An eGFR <60 mL/min/1.73m2 for >3 months is consistent with chronic kidney disease. Refer to KDOQI guidelines for clinical interpretation. In patients with unstable renal function, e.g. those with acute kidney injury, the eGFR may not accurately reflect actual GFR. Performed By: #### CBCDIF, CMP, HPYLRI #### [facility] [employer] [address] [place], [place] [address] HELICO PYLORI AB Collected: 07/30/2017 Status: F Source: [place] 9:21 AM [facility] [place] [place] REPOSITORY TYPE CODE TESTS RESULT OUT OF REFERENCE UNITS RANGE LAB HPYLRL Negative H. pylori Negative IgG, Qual Result Comment: H. pylori IgG antibodies were not detected in the sample. Negative results by this test do not preclude recent primary infection. LAB HPYLR U/mL H pylori Ab, IgG <0.4 Result Comment: U/mL are interpreted as follows: Negative specimens <0.9 Indeterminate specimens >=0.9 to <1.1 Positive specimens >=1.1 Results were obtained with the IMMULITE 2000 H.pylori IgG EIA. Results obtained from other manufacturers' assay methods may not be used interchangeably. Performed By: #### CBCDIF, CMP, HPYLRI #### [facility] [employer] [address] [place], [place] [id number] PROGRESS Observed: 07/30/2017 Status: COMPLETED Source: [place] 8:07 AM [facility] REPOSITORY HNO ID: [id number] Author: Elizabeth (Manager Rehab) Older Service: (none) Author Type: Nurse Practitioner Type: Progress Notes Filed: 07/30/2017 8:26 AM Note Text: CC abdominal pain HPI Frannie Romo is a 67 year old female who presents with epigastric abdominal pain without radiation for intermittent for months. Pain is worsening, becoming more constant. Described as sharp and other times like a gnawing pain and rated 2 to 3/10 currently. Associated symptoms include decreased appetite. Denies fever, chills, nausea, vomiting, diarrhea, constipation, black/bloody stools, heartburn/reflux symptoms, decreased appetite and pain that wakes her up from sleep. Aggravated by eating, no particular foods Alleviated by nothing. The patient has taken nothing for the pain History of gastric bypass surgery. Denies pain like this previously REVIEW OF SYSTEMS Respiratory: no cough, no wheezing Cardiovascular: no chest pain, no chest pressure, no SOB, no palpitations and no swelling GI: Negative for odynophagia. History of dysphagia, no worse than usual PAST MEDICAL HISTORY Diagnosis Date - Abdominal pain, unspecified site 02/28/2008 Reportedly had sigmoid resetion for adhesions about age 37: mutiple surgeries for adhesions, endometriosis, etc Camelia, LUIS (no comment on ovaries), cliff in sigmoid area by CT in 04-06 [facility] (Colorectal surgery) 12-05: prob small midline, incis hernia, did not rec repeat EGD/Colon/Surg-more adhesions WBC 5.8 K, HCT 43% in 01-04 Int hems ligated in 01-04 per [facility] - Abnormal glucose tolerance test 01/16/2012 - Abnormality of gait 05/01/2011 - Acute gastritis without mention of hemorrhage 11/21/2009 - Benign paroxysmal positional vertigo 06/10/2011 - Calculus of kidney - Cancer ([facility]) - Cervicalgia - Colon polyp, hyperplastic May 2006 - Depression - Depressive disorder, not elsewhere classified - Disorder of bone and cartilage, unspecified - Disorders of bursae and tendons in shoulder region, unspecified 02/28/2008 Arthroscopic R rotator cuff and biceps tendon repair 05-08-[address] Karthik Bella at [facility] - Dysphagia prior esophageal dilations twice - Dysphagia - Dysphagia, unspecified(787.20) - Epilepsy ([facility]) 02/12/2012 - Esophageal reflux - Esophagitis, unspecified - Examination of participant in clinical trial 03/01/2010 IRB: Study Title: Pelvic floor Disorders in Bariatric Surgery Patients Visit: Baseline PI: Patricia Patel MD Supervisor Finishing Room/Pager:Mayra Mar RN # [phone] Patient seen for PFD research study (IRB [id number]). Patient agreed to participate in the QOL survey portion of the trial. Patient completed baseline survey. SIG:Mayra Mar RN - Grief 11/20/2011 - Gum symptoms - History of bladder cancer - Insomnia - Malignant neoplasm of bladder, part unspecified 02/15/2008 Biopsy 11-04: non-invasive, low grade papillary carcinoma Cystosocpy 11-[address] David López in [place]: no tumors, stones or foreign bodies Urology rec Cystoscopy in 03-07 and then q 6 mo for 3 years then yearly Urology rec antibiotics in 08-06 for chronic cystitis after voided urine for cytology: may treat for 3-6 months - Microscopic hematuria 02/21/2010 - Nasal congestion 08/18/2013 - Nasal obstruction 08/31/2014 - Obesity, unspecified 11-07-09 stated BMI 38 ht: 61 wt: 201 lbs - Obstructive sleep apnea [facility] - Other and unspecified disc disorder of thoracic region - Other and unspecified hyperlipidemia - Other pain disorders related to psychological factors 05/15/2011 - Pain in limb 06/09/2008 Pain reportedly started after a fall in the shower in 2007 Junior 05-09: rec Neurontin Baller 06-06: pain in distribution of deep peroneal nerve, change to Lyrica and sponge MLA with met and RLD Referred to [facility] in 07-07 [facility]ali to manage pain meds as of 11-06 - Persistent disorder of initiating or maintaining sleep - Personal history of malignant neoplasm of bladder 08/29/2009 - 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 - Rotator cuff (capsule) sprain 11/20/2010 - Shoulder pain 05/09/2009 - Status post bariatric surgery - Thoracic or lumbosacral neuritis or radiculitis, unspecified - Unspecified hypothyroidism - Unspecified sleep apnea PAST SURGICAL HISTORY Procedure Laterality Date - APPENDECTOMY 1983 - COLONOSCOP W/ OR W/O [facility] SPEC [place] 2006 Colonoscopy - COLONOSCOP W/ OR W/O [facility] SPEC 04/10/06 Colonoscopy/ [place] - COLONOSCOP W/ OR W/O [facility] SPEC 12/01/2013 Colonoscopy - CYSTOSCOPY 2010 left stent placement - CYSTOSCOPY removal of bladder lesion- malignant. - EGD W/O [facility] SPECIMEN W/BX 03/08/08 - EGD W/O OR W/BRUSH/WASH 11/21/2009 EGD - EGD W/O OR W/BRUSH/WASH 12/01/2013 EGD - EGD W/O OR W/BRUSH/WASH 03/28/15 EGD out pt [facility] - KNEE SCOPE,DIAGNOSTIC Arthroscopy, knee right - PAST SURGICAL HISTORY OF adhesions, partial sigmoid resection, bladder lift - PAST SURGICAL HISTORY OF 2005 left Hammertoe correction right 2nd and 3rd toes - PAST SURGICAL HISTORY OF 1992 Left shoulder surgery - PAST SURGICAL HISTORY OF 09/07 left shoulder - PAST SURGICAL HISTORY OF 03-09-10 Bariatric, with hernia repair. - PAST SURGICAL HISTORY OF 1983 oophrectomy - RECONSTRUCT PROX HUMERAL IMPLANT 2006 Arthroplasty, shoulder right - REMOVAL GALLBLADDER 1980 Cholecystectomy - TOTAL ABDOM HYSTERECTOMY 1982 Hysterectomy, LUIS ALLERGIES Effexor [Venlafaxine Hcl]; Anticholinergics - Quaternary; Codiene [Other]; Cogentin [Benztropine Mesylate]; Dex Rachelle [Other]; Keflex [Cephalexin]; Phenothiazines; Roxicet [Oxycodone-Acetaminophen] MEDICATIONS methocarbamol (ROBAXIN) 750 mg tablet Take 1 tablet by mouth three times daily. PRN spasms and pain Zolpidem (AMBIEN CR) 12.5 mg CR tablet Take 1 tablet by mouth at bedtime as needed for Sedation (generic acceptable) for up to 7 days. Zolpidem (AMBIEN CR) 12.5 mg CR tablet Take 1 tablet by mouth at bedtime as needed for Sedation (generic acceptable) for up to 180 days. lamoTRIgine (LAMICTAL) 100 mg tablet Take 1 tablet by mouth twice daily. BUTRANS 10 mcg/hour Apply 1 Patch as directed every Friday for 12 days. (Dr. Lance) fluticasone (FLONASE) 50 mcg/actuation nasal spray Use 2 Sprays in each nostril once daily. Rinse mouth after use. ARIPiprazole (ABILIFY) 5 mg tablet Take 2 tablets by mouth once daily. zoledronic acid (RECLAST) 5 mg/100 mL pgbk PREMIX piggyback Inject 100 mL intravenously every year. modafinil (PROVIGIL) 100 mg tablet Take 1 tablet by mouth as needed. traZODone (DESYREL) 100 mg tablet Take 3 tablets by mouth daily at bedtime. cholecalciferol, Vitamin D3, (VITAMIN D3) 50,000 unit cap capsule Take 1 capsule by mouth once each week. levothyroxine (SYNTHROID) 50 mcg tablet Take one tablet by mouth once daily, and 1/2 tablet on Sundays. CPAP Mask (per patient preference) optional chin strap (if indicated), filters, tubing / heated tubing, heated humidity and lifetime supplies. Dx. JUVENAL G47.33 327.23 CPAP AutoSV EPAP min= 12 cmH2O, PS min-max = 3-09moP7R, Max pressure = 25 cmH2O, Rate =Auto, lifetime supplies, Dx: G47.33, G47.37 diclofenac sodium (VOLTAREN) 1 % topical gel Apply 2 g to affected area four times daily. >IV - Start IV START IV APREMILAST (OTEZLA ORAL) Take 1 tablet by mouth twice daily. DOCUSATE CALCIUM (STOOL SOFTENER ORAL) Take 1 tablet by mouth twice daily. oxybutynin XL (DITROPAN XL) 10 mg 24 hr tablet Take 10 mg by mouth once daily. ASCORBIC ACID (VITAMIN C ORAL) Take 1 tablet by mouth once daily. Biotin 10,000 mcg cap Take by mouth twice daily. Coenzyme Q10 200 mg cap Take 200 mg by mouth twice daily. HYDROcodone-acetaminophen 5-325 mg per tablet Take 1 tablet by mouth every 8 hours as needed. pregabalin 150 mg capsule Take 1 capsule by mouth once daily. Dr Lance MAGNESIUM OXIDE/MAG AA CHELATE (MAGNESIUM ORAL) Take 1 tablet by mouth twice daily. LACTOBACILLUS RHAMNOSUS GG (PROBIOTIC ORAL) Take 1 capsule by mouth daily at bedtime. Cyanocobalamin (VITAMIN B-12) 1,000 mcg ORAL Lozg Take 1,000 mcg by mouth once daily. FE PS CMPLX/ASCORBIC ACID (IRON PS COMPLEX-ASCORBIC ACID ORAL) Take 1 tablet by mouth daily at bedtime. LIDOCAINE 5 % (700 MG/PATCH) ADHESIVE PATCH Apply one patch to each hip daily. Remove patch after 12 hours. as needed MULTIVITAMIN TAB daily vitamin b complex(B COMPLEX TAB) Take one(1) tablet daily. FAMILY HISTORY Problem Relation Age of Onset - Stroke Mother - Heart Mother - Hypertension Mother - Diabetes Mother - GI Mother colitis - Alzheimer's Disease Father - Heart Father Bypass - Breast Cancer Paternal Aunt - Breast Cancer Paternal Grandmother - GI Sister colitis Social History Substance Use Topics - Smoking status: Never Smoker - Smokeless tobacco: Never Used - Alcohol use No PHYSICAL EXAM BP 100/61 Pulse 68 Temp 37.1 ?C (98.7 ?F) (Temporal Artery) Resp 14 Wt 49.3 kg (108 lb 9.6 oz) SpO2 96% BMI 21.21 kg/m? General Appearance: well appearing, in no acute distress, alert Lungs: Lungs clear to auscultation. No wheezing, rhonchi, rales Heart: RRR without murmur, gallop, or rubs. No ectopy Abdomen: Abdomen soft, non-distended. moderate epigastric abdominal tenderness with palpation. No guarding or rebound tenderness.Bowel sounds normal and active. No masses, organomegaly. ASSESSMENT/PLAN: 1. Epigastric pain - ICD9: 789.06, ICD10: R10.13 Differential Diagnosis includes GERD, PUD and Gastritis - Begin treatment with Zantac 300 mg daily - Labs of CBC with Diff, CMP and H pylori Antibodies - Referral to Gastroenterology - Follow-up in office as needed - Discussed lifestyle modifications including limiting caffeine, no meals three hours before sleep and head of bed elevation - RANITIDINE 300 MG TABLET - CBC + DIFF - COMP METABOLIC PANEL - H PYLORI IGG AB - CONSULT TO GASTROENTEROLOGY Prescription instructions reviewed with patient as applicable. Potential red flag symptoms discussed with the patient. Reviewed appropriate action plan to take if red flag symptoms occur. Patient agreeable to treatment plan. Elizabeth Mcguire APRN.SRI CNOV Observed: 07/30/2017 Status: COMPLETED Source: [place] 8:00 AM [facility] [place] REPOSITORY Office Visit (INTMWS) CLARISSA,FRANNIE Joya ([id number]) 1950 F K[place]LENE Date Time Provider Department 07/30/17 8:00 AM OLDERELIZABETH (SRI) INTMWS During your visit today, we recorded the following information about you: Temperature Pulse Respiration Blood pressure 98.7 degrees 68/minute 14/minute 100/61 Weight 49.3 kg Elizabeth Older, VISUAL SPECIALIST.SRI 07/30/2017 8:26 AM Signed CC abdominal pain HPI Frannie Romo is a 67 year old female who presents with epigastric abdominal pain without radiation for intermittent for months. Pain is worsening, becoming more constant. Described as sharp and other times like a gnawing pain and rated 2 to 3/10 currently. Associated symptoms include decreased appetite. Denies fever, chills, nausea, vomiting, diarrhea, constipation, black/bloody stools, heartburn/reflux symptoms, decreased appetite and pain that wakes her up from sleep. Aggravated by eating, no particular foods Alleviated by nothing. The patient has taken nothing for the pain History of gastric bypass surgery. Denies pain like this previously REVIEW OF SYSTEMS Respiratory: no cough, no wheezing Cardiovascular: no chest pain, no chest pressure, no SOB, no palpitations and no swelling GI: Negative for odynophagia. History of dysphagia, no worse than usual PAST MEDICAL HISTORY Diagnosis Date - Abdominal pain, unspecified site 02/28/2008 Reportedly had sigmoid resetion for adhesions about age 37: mutiple surgeries for adhesions, endometriosis, etc Camelia, LUIS (no comment on ovaries), cliff in sigmoid area by CT in 04-06 [facility] (Colorectal surgery) 12-05: prob small midline, incis hernia, did not rec repeat EGD/Colon/Surg-more adhesions WBC 5.8 K, HCT 43% in 01-04 Int hems ligated in 01-04 per [facility] - Abnormal glucose tolerance test 01/16/2012 - Abnormality of gait 05/01/2011 - Acute gastritis without mention of hemorrhage 11/21/2009 - Benign paroxysmal positional vertigo 06/10/2011 - Calculus of kidney - Cancer (HCC) - Cervicalgia - Colon polyp, hyperplastic May 2006 - Depression - Depressive disorder, not elsewhere classified - Disorder of bone and cartilage, unspecified - Disorders of bursae and tendons in shoulder region, unspecified 02/28/2008 Arthroscopic R rotator cuff and biceps tendon repair 05-08-[address] Karthik Bella at [facility] - Dysphagia prior esophageal dilations twice - Dysphagia - Dysphagia, unspecified(787.20) - Epilepsy (HCC) 02/12/2012 - Esophageal reflux - Esophagitis, unspecified - Examination of participant in clinical trial 03/01/2010 IRB: [id number] Study Title: Pelvic floor Disorders in Bariatric Surgery Patients Visit: Baseline PI: Patricia Patel MD Supervisor Finishing Room/Pager:Mayra Mar RN # [phone] Patient seen for PFD research study (IRB 06- 511). Patient agreed to participate in the QOL survey portion of the trial. Patient completed baseline survey. SIG:Mayra Mar RN - Grief 11/20/2011 - Gum symptoms - History of bladder cancer - Insomnia - Malignant neoplasm of bladder, part unspecified 02/15/2008 Biopsy 11-04: non-invasive, low grade papillary carcinoma Cystosocpy 11-[address] David López in [place]: no tumors, stones or foreign bodies Urology rec Cystoscopy in 03-07 and then q 6 mo for 3 years then yearly Urology rec antibiotics in 08-06 for chronic cystitis after voided urine for cytology: may treat for 3-6 months - Microscopic hematuria 02/21/2010 - Nasal congestion 08/18/2013 - Nasal obstruction 08/31/2014 - Obesity, unspecified 11-07-09 stated BMI 38 ht: 61 wt: 201 lbs - Obstructive sleep apnea [facility] - Other and unspecified disc disorder of thoracic region - Other and unspecified hyperlipidemia - Other pain disorders related to psychological factors 05/15/2011 - Pain in limb 06/09/2008 Pain reportedly started after a fall in the shower in 2007 [facility] 05-09: rec Neurontin Baller 06-06: pain in distribution of deep peroneal nerve, change to Lyrica and sponge MLA with met and RLD Referred to [facility] in 07-07 [facility] to manage pain meds as of 11-06 - Persistent disorder of initiating or maintaining sleep - Personal history of malignant neoplasm of bladder 08/29/2009 - 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 - Rotator cuff (capsule) sprain 11/20/2010 - Shoulder pain 05/09/2009 - Status post bariatric surgery - Thoracic or lumbosacral neuritis or radiculitis, unspecified - Unspecified hypothyroidism - Unspecified sleep apnea PAST SURGICAL HISTORY Procedure Laterality Date - APPENDECTOMY 1984 - COLONOSCOP W/ OR W/O [facility] SPEC [place] 2006 Colonoscopy - COLONOSCOP W/ OR W/O [facility] SPEC 04/10/06 Colonoscopy/ [place] - COLONOSCOP W/ OR W/O [facility] SPEC 12/01/2013 Colonoscopy - CYSTOSCOPY 2010 left stent placement - CYSTOSCOPY removal of bladder lesion- malignant. - EGD W/O [facility] SPECIMEN W/BX 03/08/08 - EGD W/O OR W/BRUSH/WASH 11/21/2009 EGD - EGD W/O OR W/BRUSH/WASH 12/01/2013 EGD - EGD W/O OR W/BRUSH/WASH 03/28/15 EGD out pt [facility] - KNEE SCOPE,DIAGNOSTIC Arthroscopy, knee right - PAST SURGICAL HISTORY OF adhesions, partial sigmoid resection, bladder lift - PAST SURGICAL HISTORY OF 2005 left Hammertoe correction right 2nd and 3rd toes - PAST SURGICAL HISTORY OF 1992 Left shoulder surgery - PAST SURGICAL HISTORY OF 09/07 left shoulder - PAST SURGICAL HISTORY OF 03-09-10 Bariatric, with hernia repair. - PAST SURGICAL HISTORY OF 1983 oophrectomy - RECONSTRUCT PROX HUMERAL IMPLANT 2006 Arthroplasty, shoulder right - REMOVAL GALLBLADDER 1980 Cholecystectomy - TOTAL ABDOM HYSTERECTOMY 1982 Hysterectomy, LUIS ALLERGIES Effexor [Venlafaxine Hcl]; Anticholinergics - Quaternary; Codiene [Other]; Cogentin [Benztropine Mesylate]; Dex Rachelle [Other]; Keflex [Cephalexin]; Phenothiazines; Roxicet [Oxycodone-Acetaminophen] MEDICATIONS methocarbamol (ROBAXIN) 750 mg tablet Take 1 tablet by mouth three times daily. PRN spasms and pain Zolpidem (AMBIEN CR) 12.5 mg CR tablet Take 1 tablet by mouth at bedtime as needed for Sedation (generic acceptable) for up to 7 days. Zolpidem (AMBIEN CR) 12.5 mg CR tablet Take 1 tablet by mouth at bedtime as needed for Sedation (generic acceptable) for up to 180 days. lamoTRIgine (LAMICTAL) 100 mg tablet Take 1 tablet by mouth twice daily. BUTRANS 10 mcg/hour Apply 1 Patch as directed every Friday for 12 days. (Dr. Lance) fluticasone (FLONASE) 50 mcg/actuation nasal spray Use 2 Sprays in each nostril once daily. Rinse mouth after use. ARIPiprazole (ABILIFY) 5 mg tablet Take 2 tablets by mouth once daily. zoledronic acid (RECLAST) 5 mg/100 mL pgbk PREMIX piggyback Inject 100 mL intravenously every year. modafinil (PROVIGIL) 100 mg tablet Take 1 tablet by mouth as needed. traZODone (DESYREL) 100 mg tablet Take 3 tablets by mouth daily at bedtime. cholecalciferol, Vitamin D3, (VITAMIN D3) 50,000 unit cap capsule Take 1 capsule by mouth once each week. levothyroxine (SYNTHROID) 50 mcg tablet Take one tablet by mouth once daily, and 1/2 tablet on Sundays. CPAP Mask (per patient preference) optional chin strap (if indicated), filters, tubing / heated tubing, heated humidity and lifetime supplies. Dx. JUVENAL G47.33 327.23 CPAP AutoSV EPAP min= 12 cmH2O, PS min-max = [id number], Max pressure = 25 cmH2O, Rate =Auto, lifetime supplies, Dx: G47.33, G47.37 diclofenac sodium (VOLTAREN) 1 % topical gel Apply 2 g to affected area four times daily. >IV - Start IV START IV APREMILAST (OTEZLA ORAL) Take 1 tablet by mouth twice daily. DOCUSATE CALCIUM (STOOL SOFTENER ORAL) Take 1 tablet by mouth twice daily. oxybutynin XL (DITROPAN XL) 10 mg 24 hr tablet Take 10 mg by mouth once daily. ASCORBIC ACID (VITAMIN C ORAL) Take 1 tablet by mouth once daily. Biotin 10,000 mcg cap Take by mouth twice daily. Coenzyme Q10 200 mg cap Take 200 mg by mouth twice daily. HYDROcodone-acetaminophen 5-325 mg per tablet Take 1 tablet by mouth every 8 hours as needed. pregabalin 150 mg capsule Take 1 capsule by mouth once daily. Dr Lance MAGNESIUM OXIDE/MAG AA CHELATE (MAGNESIUM ORAL) Take 1 tablet by mouth twice daily. LACTOBACILLUS RHAMNOSUS GG (PROBIOTIC ORAL) Take 1 capsule by mouth daily at bedtime. Cyanocobalamin (VITAMIN B-12) 1,000 mcg ORAL Lozg Take 1,000 mcg by mouth once daily. FE PS CMPLX/ASCORBIC ACID (IRON PS COMPLEX-ASCORBIC ACID ORAL) Take 1 tablet by mouth daily at bedtime. LIDOCAINE 5 % (700 MG/PATCH) ADHESIVE PATCH Apply one patch to each hip daily. Remove patch after 12 hours. as needed MULTIVITAMIN TAB daily vitamin b complex(B COMPLEX TAB) Take one(1) tablet daily. FAMILY HISTORY Problem Relation Age of Onset - Stroke Mother - Heart Mother - Hypertension Mother - Diabetes Mother - GI Mother colitis - Alzheimer's Disease Father - Heart Father Bypass - Breast Cancer Paternal Aunt - Breast Cancer Paternal Grandmother - GI Sister colitis Social History Substance Use Topics - Smoking status: Never Smoker - Smokeless tobacco: Never Used - Alcohol use No PHYSICAL EXAM BP 100/61 Pulse 68 Temp 37.1 ?C (98.7 ?F) (Temporal Artery) Resp 14 Wt 49.3 kg (108 lb 9.6 oz) SpO2 96% BMI 21.21 kg/m? General Appearance: well appearing, in no acute distress, alert Lungs: Lungs clear to auscultation. No wheezing, rhonchi, rales Heart: RRR without murmur, gallop, or rubs. No ectopy Abdomen: Abdomen soft, non-distended. moderate epigastric abdominal tenderness with palpation. No guarding or rebound tenderness.Bowel sounds normal and active. No masses, organomegaly. ASSESSMENT/PLAN: 1. Epigastric pain - ICD9: 789.06, ICD10: R10.13 Differential Diagnosis includes GERD, PUD and Gastritis - Begin treatment with Zantac 300 mg daily - Labs of CBC with Diff, CMP and H pylori Antibodies - Referral to Gastroenterology - Follow-up in office as needed - Discussed lifestyle modifications including limiting caffeine, no meals three hours before sleep and head of bed elevation - RANITIDINE 300 MG TABLET - CBC + DIFF - COMP METABOLIC PANEL - H PYLORI IGG AB - CONSULT TO GASTROENTEROLOGY Prescription instructions reviewed with patient as applicable. Potential red flag symptoms discussed with the patient. Reviewed appropriate action plan to take if red flag symptoms occur. Patient agreeable to treatment plan. VICENTE Coulter APRN.CNP 07/30/2017 8:52 AM Signed Addended by: ELIZABETH MCGUIRE CNP on: 07/30/2017 08:52 AM Modules accepted: Orders, SmartSet Referring Provider: SELF [[id number]] Allergies As of Date: 07/30/2017 Noted Allergy Reaction EFFEXOR (VENLAFAXINE HCL) 01/01/2010 5 - Intolerance Comments: headaches ANTICHOLINERGICS - QUATERNARY 01/04/2003 Comments: amy Morelosiene [Other] 01/04/2003 Comments: chest pain GEORGIAANNA (BENZTROPINE MESYLATE) 03/16/2008 Comments: Body went rigid dex rachelle [Other] 03/16/2008 Comments: Medrol dose pack: hallucinatios, diff walking KEFLEX (CEPHALEXIN) 12/18/2011 5 - Intolerance Comments: makes pt too drowsy PHENOTHIAZINES 01/04/2003 Comments: compazine-1 sided facial weakness (like stroke) ROXICET (OXYCODONE-ACETAMINOPHEN) 03/15/2010 9 - Itching Date Reviewed: 07/30/2017 Reviewed by: Aida Covarrubias Detasseler - Fully Assessed Primary Visit Diagnosis:Epigastric pain [R10.13] Other Visit Diagnosis:Need for vaccination [Z23] Order(s):Ranitidine HCl (ZANTAC) 300 mg tabletTake 1 tablet by mouth once daily.Disp: 30 tabletRfl: 1 CBC + DIFF [SQCBCDIF] Order #: [id number] FUTURE COMP METABOLIC PANEL [SQCMP] Order #: [id number] FUTURE H PYLORI IGG AB [SQHPYLRI] Order #: [id number] FUTURE CONSULT TO GASTROENTEROLOGY [9010] Order #: [id number]: 1 PNEUMOCOCCAL-13 VACCINE PCV-13 [05642VDN] Order #: [id number] Prescriptions as of 07/30/2017 Sig: METHOCARBAMOL 750 MG TABLET Take 1 tablet by mouth three * ZOLPIDEM ER 12.5 MG TABLET,EX* Take 1 tablet by mouth at bed* ZOLPIDEM ER 12.5 MG TABLET,EX* Take 1 tablet by mouth at bed* LAMOTRIGINE 100 MG TABLET Take 1 tablet by mouth twice * BUTRANS 10 MCG/HOUR TRANSDERM* Apply 1 Patch as directed jose alfredo* FLUTICASONE 50 MCG/ACTUATION * Use 2 Sprays in each nostril * ARIPIPRAZOLE 5 MG TABLET Take 2 tablets by mouth once * ZOLEDRONIC ACID 5 MG/100 ML I* Inject 100 mL intravenously e* MODAFINIL 100 MG TABLET Take 1 tablet by mouth as nee* TRAZODONE 100 MG TABLET Take 3 tablets by mouth daily* CHOLECALCIFEROL (VITAMIN D3) * Take 1 capsule by mouth once * LEVOTHYROXINE 50 MCG TABLET Take one tablet by mouth once* CPAP Mask (per patient preference)* CPAP AutoSV EPAP min= 12 cmH2O, PS* DICLOFENAC 1 % TOPICAL GEL Apply 2 g to affected area fo* COMPOUNDED PRESCRIPTION START IV OTEZLA ORAL Take 1 tablet by mouth twice * STOOL SOFTENER ORAL Take 1 tablet by mouth twice * OXYBUTYNIN CHLORIDE ER 10 MG * Take 10 mg by mouth once vashti* VITAMIN C ORAL Take 1 tablet by mouth once d* BIOTIN 10,000 MCG CAPSULE Take by mouth twice daily. COENZYME Q10 200 MG CAPSULE Take 200 mg by mouth twice da* HYDROCODONE 5 MG-ACETAMINOPHE* Take 1 tablet by mouth every * PREGABALIN 150 MG CAPSULE Take 1 capsule by mouth once * Patient taking differently: Take 150 mg by mouth twice da* MAGNESIUM ORAL Take 1 tablet by mouth twice * PROBIOTIC ORAL Take 1 capsule by mouth daily* CYANOCOBALAMIN (VIT B-12) 1,0* Take 1,000 mcg by mouth once * IRON PS COMPLEX-ASCORBIC ACID* Take 1 tablet by mouth daily * LIDOCAINE 5 % TOPICAL PATCH Apply one patch to each hip d* MULTIVITAMIN TABLET daily B COMPLEX TABLET,EXTENDED REL* Take one(1) tablet daily. RANITIDINE 300 MG TABLET Take 1 tablet by mouth once d* More... More... Problem List As Of Date 07/30/2017 Noted Resolved Obesity, unspecified [E66.9] INVALID FOR*09/18/2012 More... More... Depressive disorder, not elsewhere classified [*INVALID FOR*10/21/2012 More... Mixed hyperlipidemia [E78.2] INVALID FOR* More... BONE AND CARTILAGE DIS NOS [M89.9, M94.9] INVALID FOR* More... Hypothyroidism [E03.9] INVALID FOR* More... Unspecified sleep apnea [G47.30] INVALID FOR*06/20/2014 More... More... Radiculopathy, lumbar region [M54.16] INVALID FOR* More... More... DISC DIS NEC/NOS-THORAC [M51.9] INVALID FOR* More... CERVICALGIA [M54.2] INVALID FOR* More... More... More... Vitamin D deficiency [E55.9] INVALID FOR* More... More... Insomnia [G47.00] 04/13/2014 Chronic insomnia [F51.04] INVALID FOR*04/13/2014 Class: Chronic More... 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 Obstructive Sleep apnea - AHI 48 [G47.33] INVALID FOR* More... Osteoporosis, unspecified [M81.0] INVALID FOR*08/09/2014 Osteoporosis [M81.0] INVALID FOR* More... Central sleep apnea in conditions classified el*INVALID FOR* DDD (degenerative disc disease), cervical [M50.*INVALID FOR* DDD (degenerative disc disease), lumbar [M51.36]INVALID FOR* Chronic pain [G89.29] INVALID FOR* Memory deficits [R41.3] INVALID FOR* Onychomycosis [B35.1] INVALID FOR* More... Psoriatic arthritis (HCC) [L40.50] INVALID FOR* Rotator cuff arthropathy, left [M12.812] INVALID FOR* Cervical radiculopathy [M54.12] INVALID FOR* Chronic bilateral low back pain with bilateral *INVALID FOR* Prescriptions ordered this encounter Disp Refills Start End RANITIDINE 300 MG TABLET 30 t* 1 07/30/2017 Route: ORAL Sig: Take 1 tablet by mouth once daily. Encounter Status:Closed by ELIZABETH MCGUIRE CNP on 07/30/17 PROGRESS Observed: 07/29/2017 Status: COMPLETED Source: [place] 3:03 PM [facility] REPOSITORY HNO ID: [id number] Author: Karlo Stevens Service: (none) Author Type: Physician Type: Progress Notes Filed: 07/29/2017 5:33 PM Note Text: SPINE CARE PATH LOW BACK PAIN: CHRONIC INITIAL SUBJECTIVE HISTORY OF PRESENT ILLNESS: Frannie Romo is a 67 year old female who has a h/o chronic low back pain is referred by Dr. Conde today for bilateral outer hip pain. Patient reports she has been having outer hip pain especially when she sleeps on either side, right is worse than left for at least over a year. She states due to her sleep apnea she was instructed not to sleep on her back. Reports she notices pain radiating down to the knee b/l upon waking at night to turn to the opposite side because of the pain. Pain is throbbing in nature and shooting if she wakes up to change positions at night. Reports with pressure off the sites, when she is walking or sitting pain is about 3/10, dull throb in nature. Denies saddle anaesthesia, denies bowel or bladder incontinence. Reports a h/o malignat polyp in bladder found in 2005 and has been resected. Reports she regularly follows with a urologist. Other Issues Addressed at the Visit Today: None. Precipitating Event: None PAIN EVALUATION 07/29/2017 Pain Score: 3 Pain Location: - bilateral hips Description: Aching Duration Units: Years Frequency: Continuous Intervention: Medication Pain Radiation: down the right and left thigh up to the knee after laying on outer hip Aggravating Factors: sleeping on side Alleviating Factors: sitting and walking Prior Therapy: Has had injection to right bursa by pain managment (in [place]); reports having relief only during the day Litigation: No Workers' Compensation: No PED RED FLAGS YELLOW AND BLUE FLAGS No No-Significant Injury to Spine No-Use of Steroids for Prolonged Duration No-Loss of Bowel/Bladder Control, Genital/Anal Numbness No-Recent Use of Intravenous (IV) Drugs No-Difficulty Keeping Balance when Walking No-Progressive Weakness in Arms/Legs No-History of Any Type of Cancer No-Unable to Find Position of Comfort No-Pain at Night that Disturbs Sleep No-Recent Elevated Temp with Unknown Cause No-Diagnosed with Osteoporosis No-Unintentional Weight Loss or Gain No-Neg Attitude; Back Pain is Disabling No-Avoiding Activity (for Fear of Pain) No-Depression or Anxiety Disorders No-Social Problems No-Substance Use Disorder No-Job Dissatisfaction No-Financial Disincentives *PED (Patient Entered Data) osteoporosis flag will display for females 55 years or older and males 75 years or older. 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 Epilepsy ([facility]) Major Depression in Partial Remission ([facility]) Psychophysiological Insomnia Obstructive Sleep apnea - AHI 48 Osteoporosis Central Sleep Apnea in Conditions Classified Elsewhere(327.27) Ddd (Degenerative Disc Disease), Cervical Ddd (Degenerative Disc Disease), Lumbar Chronic Pain Memory Deficits Onychomycosis Psoriatic Arthritis ([facility]) Rotator Cuff Arthropathy, Left Cervical Radiculopathy Chronic Bilateral Low Back Pain With Bilateral Sciatica PAST MEDICAL HISTORY Diagnosis Date - Abdominal pain, unspecified site 02/28/2008 Reportedly had sigmoid resetion for adhesions about age 37: mutiple surgeries for adhesions, endometriosis, etc Camelia, LUIS (no comment on ovaries), cliff in sigmoid area by CT in 04-06 [facility] (Colorectal surgery) 12-05: prob small midline, incis hernia, did not rec repeat EGD/Colon/Surg-more adhesions WBC 5.8 K, HCT 43% in 01-04 Int hems ligated in 01-04 per [facility] - Abnormal glucose tolerance test 01/16/2012 - Abnormality of gait 05/01/2011 - Acute gastritis without mention of hemorrhage 11/21/2009 - Benign paroxysmal positional vertigo 06/10/2011 - Calculus of kidney - Cancer ([facility]) - Cervicalgia - Colon polyp, hyperplastic May 2006 - Depression - Depressive disorder, not elsewhere classified - Disorder of bone and cartilage, unspecified - Disorders of bursae and tendons in shoulder region, unspecified 02/28/2008 Arthroscopic R rotator cuff and biceps tendon repair 05-08-[address] Karthik Bella at [facility] - Dysphagia prior esophageal dilations twice - Dysphagia - Dysphagia, unspecified(787.20) - Epilepsy ([facility]) 02/12/2012 - Esophageal reflux - Esophagitis, unspecified - Examination of participant in clinical trial 03/01/2010 IRB: Study Title: Pelvic floor Disorders in Bariatric Surgery Patients Visit: Baseline PI: Patricia Patel MD Supervisor Finishing Room/Pager:Mayra Mar RN # [phone] Patient seen for PFD research study (IRB ). Patient agreed to participate in the QOL survey portion of the trial. Patient completed baseline survey. SIG:Mayra Mar RN - Grief 11/20/2011 - Gum symptoms - History of bladder cancer - Insomnia - Malignant neoplasm of bladder, part unspecified 02/15/2008 Biopsy 11-04: non-invasive, low grade papillary carcinoma Cystosocpy 11-[address] David López in [place]: no tumors, stones or foreign bodies Urology rec Cystoscopy in 03-07 and then q 6 mo for 3 years then yearly Urology rec antibiotics in 08-06 for chronic cystitis after voided urine for cytology: may treat for 3-6 months - Microscopic hematuria 02/21/2010 - Nasal congestion 08/18/2013 - Nasal obstruction 08/31/2014 - Obesity, unspecified 11-07-09 stated BMI 38 ht: 61 wt: 201 lbs - Obstructive sleep apnea [facility] - Other and unspecified disc disorder of thoracic region - Other and unspecified hyperlipidemia - Other pain disorders related to psychological factors 05/15/2011 - Pain in limb 06/09/2008 Pain reportedly started after a fall in the shower in 2007 [facility] 05-09: rec Neurontin Baller 06-06: pain in distribution of deep peroneal nerve, change to Lyrica and sponge MLA with met and RLD Referred to [facility] in 07-07 [facility]ali to manage pain meds as of 11-06 - Persistent disorder of initiating or maintaining sleep - Personal history of malignant neoplasm of bladder 08/29/2009 - 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 - EGD W/O [facility] SPECIMEN W/BX 03/08/08 - EGD W/O OR W/BRUSH/WASH 11/21/2009 EGD - EGD W/O OR W/BRUSH/WASH 12/01/2013 EGD - EGD W/O OR W/BRUSH/WASH 03/28/15 EGD out pt [facility] - KNEE SCOPE,DIAGNOSTIC Arthroscopy, knee right - PAST SURGICAL HISTORY OF adhesions, partial sigmoid resection, bladder lift - PAST SURGICAL HISTORY OF 2005 left Hammertoe correction right 2nd and 3rd toes - PAST SURGICAL HISTORY OF 1992 Left shoulder surgery - PAST SURGICAL HISTORY OF 09/07 left shoulder - PAST SURGICAL HISTORY OF 03-09-10 Bariatric, with hernia repair. - PAST SURGICAL HISTORY OF 1983 oophrectomy - RECONSTRUCT PROX HUMERAL IMPLANT 2006 Arthroplasty, shoulder right - REMOVAL GALLBLADDER 1980 Cholecystectomy - TOTAL ABDOM HYSTERECTOMY 1982 Hysterectomy, LUIS Social History Marital status: Spouse name: Sneg Years of education: Number of children: 2 Social History Main Topics Smoking status: Never Smoker Smokeless tobacco: Never Used Alcohol use: No Drug use: No FAMILY HISTORY Problem Relation Age of Onset - Stroke Mother - Heart Mother - Hypertension Mother - Diabetes Mother - GI Mother colitis - Alzheimer's Disease Father - Heart Father Bypass - Breast Cancer Paternal Aunt - Breast Cancer Paternal Grandmother - GI Sister colitis ALLERGIES Allergen Reactions - Effexor [Venlafaxin* Intolerance headaches - Anticholinergics - * cogentin - Codiene [Other] chest pain - Cogentin [Benztropi* Body went rigid - Dex Rachelle [Other] Medrol dose pack: hallucinatios, diff walking - Keflex [Cephalexin] Intolerance makes pt too drowsy - Phenothiazines compazine-1 sided facial weakness (like stroke) - Roxicet [Oxycodone-* Itching CURRENT MEDICATIONS: methocarbamol (ROBAXIN) 750 mg tablet Take 1 tablet by mouth three times daily. PRN spasms and pain Zolpidem (AMBIEN CR) 12.5 mg CR tablet Take 1 tablet by mouth at bedtime as needed for Sedation (generic acceptable) for up to 7 days. Zolpidem (AMBIEN CR) 12.5 mg CR tablet Take 1 tablet by mouth at bedtime as needed for Sedation (generic acceptable) for up to 180 days. lamoTRIgine (LAMICTAL) 100 mg tablet Take 1 tablet by mouth twice daily. BUTRANS 10 mcg/hour Apply 1 Patch as directed every Friday for 12 days. (Dr. Basali) fluticasone (FLONASE) 50 mcg/actuation nasal spray Use 2 Sprays in each nostril once daily. Rinse mouth after use. ARIPiprazole (ABILIFY) 5 mg tablet Take 2 tablets by mouth once daily. zoledronic acid (RECLAST) 5 mg/100 mL pgbk PREMIX piggyback Inject 100 mL intravenously every year. modafinil (PROVIGIL) 100 mg tablet Take 1 tablet by mouth as needed. traZODone (DESYREL) 100 mg tablet Take 3 tablets by mouth daily at bedtime. cholecalciferol, Vitamin D3, (VITAMIN D3) 50,000 unit cap capsule Take 1 capsule by mouth once each week. levothyroxine (SYNTHROID) 50 mcg tablet Take one tablet by mouth once daily, and 1/2 tablet on Sundays. CPAP Mask (per patient preference) optional chin strap (if indicated), filters, tubing / heated tubing, heated humidity and lifetime supplies. Dx. JUVENAL G47.33 327.23 CPAP AutoSV EPAP min= 12 cmH2O, PS min-max = [id number], Max pressure = 25 cmH2O, Rate =Auto, lifetime supplies, Dx: G47.33, G47.37 diclofenac sodium (VOLTAREN) 1 % topical gel Apply 2 g to affected area four times daily. >IV - Start IV START IV APREMILAST (OTEZLA ORAL) Take 1 tablet by mouth twice daily. DOCUSATE CALCIUM (STOOL SOFTENER ORAL) Take 1 tablet by mouth twice daily. oxybutynin XL (DITROPAN XL) 10 mg 24 hr tablet Take 10 mg by mouth once daily. ASCORBIC ACID (VITAMIN C ORAL) Take 1 tablet by mouth once daily. Biotin 10,000 mcg cap Take by mouth twice daily. Coenzyme Q10 200 mg cap Take 200 mg by mouth twice daily. HYDROcodone-acetaminophen 5-325 mg per tablet Take 1 tablet by mouth every 8 hours as needed. pregabalin 150 mg capsule Take 1 capsule by mouth once daily. Dr Lance MAGNESIUM OXIDE/MAG AA CHELATE (MAGNESIUM ORAL) Take 1 tablet by mouth twice daily. LACTOBACILLUS RHAMNOSUS GG (PROBIOTIC ORAL) Take 1 capsule by mouth daily at bedtime. Cyanocobalamin (VITAMIN B-12) 1,000 mcg ORAL Lozg Take 1,000 mcg by mouth once daily. FE PS CMPLX/ASCORBIC ACID (IRON PS COMPLEX-ASCORBIC ACID ORAL) Take 1 tablet by mouth daily at bedtime. LIDOCAINE 5 % (700 MG/PATCH) ADHESIVE PATCH Apply one patch to each hip daily. Remove patch after 12 hours. as needed MULTIVITAMIN TAB daily vitamin b complex(B COMPLEX TAB) Take one(1) tablet daily. REVIEW OF SYSTEMS: Review of Systems Constitutional Positive for Fatigue Negative for Fevers, Night Sweats, Weight Gain and Weight Loss Eyes: Negative Hent: Negative Cardiovascular: Negative Respiratory: Negative GI: Negative : Negative Endocrine: Negative Musculoskeletal Positive for Back Pain Negative for Joint Swelling, Stiff Joints and Muscle Pain Integumentary: Negative Heme/Lymph: Negative Allergy/Immunologic: Negative Neurologic: Negative Psychiatric: Negative Patient's Review of Systems has been reviewed with the patient and updated as appropriate. OBJECTIVE PHYSICAL EXAM: Temp 36.7 ?C (98.1 ?F) (Oral) Ht 152.4 cm (5') Wt 48.2 kg (106 lb 3.2 oz) BMI 20.74 kg/m? GENERAL APPEARANCE: Well nourished, well developed, and no apparent distress. NEURO PSYCH: Patient oriented to person, place, and time. Mood pleasant. Benign affect. CARDIOVASCULAR: Palpable pulses. No edema noted. No varicosities. SKIN: Head, neck, trunk, and extremities dry, intact and without lesions. LYMPHATICS: No palpable nodes in cervical or axillae areas. Groin exam deferred. MUSCULOSKELETAL VISUAL INSPECTION CERVICAL: WNL THORACIC: WNL LUMBAR: WNL PALPATION: SPINOUS PROCESS: No pain. PARASPINALS: No pain. SPINE ROM: LUMBAR ROM: Full ROM Without Pain CERVICAL ROM: Full ROM Without Pain MUSCLE BULK: Normal and symmetrical in the upper AND lower extremities. MUSCLE TONE: Normal. MOTOR: 5/5 in all muscle groups. SENSORY: Normal sensory exam GAIT: unable to tandem walk REFLEXES: +2 to bilateral U/L extremities. PROPRIOCEPTION: Not tested. LONG TRACT SIGNS: No clonus.B/L masterson's BABINSKI: Downward response STRAIGHT LEG TEST: Ipsilateral: Negative. Contralateral: Negative. PERIPHERAL JOINT ROM: HIP ROM: Full ROM Without Pain SHOULDER ROM: Full ROM Without Pain L'HERMITTES SIGN: Negative on the right. Negative on the left. SPURLING'S TEST: Not tested. Data Review: [facility] records reviewed ASSESSMENT/PLAN 67 yo female with outer hip likely trochanteric bursitis bilaterally -Bilateral trochanteric bursa injections Case reviewed with Dr. Stevens. Ritu Simmons DO Spine Medicine Fellow Procedure note: Bilateral trochanteric bursa injections Patient offered steroid injection to bilateral bursa. Patient explained benefit and risks and consented to procedure. A mixture of 40 mg of triamcinolone and 3 cc of lidocaine 1% was used on the right. A separate mixture 40 mg of triamcinolone and 3 cc of lidocaine 1% was used on the left. With patient positioned comfortably on her side, the most painful site in the lateral hip the greater trochanter was identified and marked. After application of a vapo coolant and sterile preparation with alcohol, a 3.5 inch 22-gauge spinal was directed to appropriate position. She tolerated procedure well. Bandages were applied afterward. She was given her home-going instructions. Attending Note: Wilkins findings confirmed. Patient examined. Discussed with the fellow and the patient. Plan as outlined. Karlo Stevens DO CNOV Observed: 07/29/2017 Status: COMPLETED Source: [place] 2:40 PM [facility] [place] REPOSITORY Office Visit (SPMETW) FRANNIE ROMO ([id number]) 1950 [address] [facility] Date Time Provider Department 07/29/17 2:40 PM KARLO STEVENS SPMETW During your visit today, we recorded the following information about you: Temperature Weight Height 98.1 degrees 48.2 kg 1.524 m Karlo Stevens DO 07/29/2017 5:33 PM Signed SPINE CARE PATH LOW BACK PAIN: CHRONIC INITIAL SUBJECTIVE HISTORY OF PRESENT ILLNESS: Frannie Mahnaz Romo is a 67 year old female who has a h/o chronic low back pain is referred by Dr. Conde today for bilateral outer hip pain. Patient reports she has been having outer hip pain especially when she sleeps on either side, right is worse than left for at least over a year. She states due to her sleep apnea she was instructed not to sleep on her back. Reports she notices pain radiating down to the knee b/l upon waking at night to turn to the opposite side because of the pain. Pain is throbbing in nature and shooting if she wakes up to change positions at night. Reports with pressure off the sites, when she is walking or sitting pain is about 3/10, dull throb in nature. Denies saddle anaesthesia, denies bowel or bladder incontinence. Reports a h/o malignat polyp in bladder found in 2005 and has been resected. Reports she regularly follows with a urologist. Other Issues Addressed at the Visit Today: None. Precipitating Event: None PAIN EVALUATION 07/29/2017 Pain Score: 3 Pain Location: - bilateral hips Description: Aching Duration Units: Years Frequency: Continuous Intervention: Medication Pain Radiation: down the right and left thigh up to the knee after laying on outer hip Aggravating Factors: sleeping on side Alleviating Factors: sitting and walking Prior Therapy: Has had injection to right bursa by pain managment (in [place]); reports having relief only during the day Litigation: No Workers' Compensation: No PED RED FLAGS YELLOW AND BLUE FLAGS No No-Significant Injury to Spine No-Use of Steroids for Prolonged Duration No-Loss of Bowel/Bladder Control, Genital/Anal Numbness No-Recent Use of Intravenous (IV) Drugs No-Difficulty Keeping Balance when Walking No-Progressive Weakness in Arms/Legs No-History of Any Type of Cancer No-Unable to Find Position of Comfort No-Pain at Night that Disturbs Sleep No-Recent Elevated Temp with Unknown Cause No-Diagnosed with Osteoporosis No-Unintentional Weight Loss or Gain No-Neg Attitude; Back Pain is Disabling No-Avoiding Activity (for Fear of Pain) No-Depression or Anxiety Disorders No-Social Problems No-Substance Use Disorder No-Job Dissatisfaction No-Financial Disincentives *PED (Patient Entered Data) osteoporosis flag will display for females 55 years or older and males 75 years or older. 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 Epilepsy (Hcc) Major Depression in Partial Remission (Hcc) Psychophysiological Insomnia Obstructive Sleep apnea - AHI 48 Osteoporosis Central Sleep Apnea in Conditions Classified Elsewhere(327.27) Ddd (Degenerative Disc Disease), Cervical Ddd (Degenerative Disc Disease), Lumbar Chronic Pain Memory Deficits Onychomycosis Psoriatic Arthritis (Hcc) Rotator Cuff Arthropathy, Left Cervical Radiculopathy Chronic Bilateral Low Back Pain With Bilateral Sciatica PAST MEDICAL HISTORY Diagnosis Date - Abdominal pain, unspecified site 02/28/2008 Reportedly had sigmoid resetion for adhesions about age 37: mutiple surgeries for adhesions, endometriosis, etc Camelia, LUIS (no comment on ovaries), cliff in sigmoid area by CT in 04-06 [facility] (Colorectal surgery) 12-05: prob small midline, incis hernia, did not rec repeat EGD/Colon/Surg-more adhesions WBC 5.8 K, HCT 43% in 01-04 Int hems ligated in 01-04 per [facility] - Abnormal glucose tolerance test 01/16/2012 - Abnormality of gait 05/01/2011 - Acute gastritis without mention of hemorrhage 11/21/2009 - Benign paroxysmal positional vertigo 06/10/2011 - Calculus of kidney - Cancer ([facility]) - Cervicalgia - Colon polyp, hyperplastic May 2006 - Depression - Depressive disorder, not elsewhere classified - Disorder of bone and cartilage, unspecified - Disorders of bursae and tendons in shoulder region, unspecified 02/28/2008 Arthroscopic R rotator cuff and biceps tendon repair 05-08-[address] Karthik Bella at [facility] - Dysphagia prior esophageal dilations twice - Dysphagia - Dysphagia, unspecified(787.20) - Epilepsy ([facility]) 02/12/2012 - Esophageal reflux - Esophagitis, unspecified - Examination of participant in clinical trial 03/01/2010 IRB: Study Title: Pelvic floor Disorders in Bariatric Surgery Patients Visit: Baseline PI: Patricia Patel MD Supervisor Finishing Room/Pager:Mayra Mar RN # [phone] Patient seen for PFD research study (IRB 06- 184). Patient agreed to participate in the QOL survey portion of the trial. Patient completed baseline survey. SIG:Mayra Mar RN - Grief 11/20/2011 - Gum symptoms - History of bladder cancer - Insomnia - Malignant neoplasm of bladder, part unspecified 02/15/2008 Biopsy 11-04: non-invasive, low grade papillary carcinoma Cystosocpy 11-[address] David López in [place]: no tumors, stones or foreign bodies Urology rec Cystoscopy in 03-07 and then q 6 mo for 3 years then yearly Urology rec antibiotics in 08-06 for chronic cystitis after voided urine for cytology: may treat for 3-6 months - Microscopic hematuria 02/21/2010 - Nasal congestion 08/18/2013 - Nasal obstruction 08/31/2014 - Obesity, unspecified 11-07-09 stated BMI 38 ht: 61 wt: 201 lbs - Obstructive sleep apnea [facility] - Other and unspecified disc disorder of thoracic region - Other and unspecified hyperlipidemia - Other pain disorders related to psychological factors 05/15/2011 - Pain in limb 06/09/2008 Pain reportedly started after a fall in the shower in 2007 [place] 05-09: rec Neurontin Baller 06-06: pain in distribution of deep peroneal nerve, change to Lyrica and sponge MLA with met and RLD Referred to [facility] in 07-07 Basali to manage pain meds as of 11-06 - Persistent disorder of initiating or maintaining sleep - Personal history of malignant neoplasm of bladder 08/29/2009 - 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 - Rotator cuff (capsule) sprain 11/20/2010 - Shoulder pain 05/09/2009 - Status post bariatric surgery - Thoracic or lumbosacral neuritis or radiculitis, unspecified - Unspecified hypothyroidism - Unspecified sleep apnea PAST SURGICAL HISTORY Procedure Laterality Date - APPENDECTOMY 1983 - COLONOSCOP W/ OR W/O [facility] SPEC [place] 2006 Colonoscopy - COLONOSCOP W/ OR W/O [facility] SPEC 04/10/06 Colonoscopy/ [place] - COLONOSCOP W/ OR W/O [facility] SPEC 12/01/2013 Colonoscopy - CYSTOSCOPY 2010 left stent placement - CYSTOSCOPY removal of bladder lesion- malignant. - EGD W/O [facility] SPECIMEN W/BX 03/08/08 - EGD W/O OR W/BRUSH/WASH 11/21/2009 EGD - EGD W/O OR W/BRUSH/WASH 12/01/2013 EGD - EGD W/O OR W/BRUSH/WASH 03/28/15 EGD out pt [facility] - KNEE SCOPE,DIAGNOSTIC Arthroscopy, knee right - PAST SURGICAL HISTORY OF adhesions, partial sigmoid resection, bladder lift - PAST SURGICAL HISTORY OF 2005 left Hammertoe correction right 2nd and 3rd toes - PAST SURGICAL HISTORY OF 1992 Left shoulder surgery - PAST SURGICAL HISTORY OF 09/07 left shoulder - PAST SURGICAL HISTORY OF 03-09-10 Bariatric, with hernia repair. - PAST SURGICAL HISTORY OF 1983 oophrectomy - RECONSTRUCT PROX HUMERAL IMPLANT 2006 Arthroplasty, shoulder right - REMOVAL GALLBLADDER 1980 Cholecystectomy - TOTAL ABDOM HYSTERECTOMY 1983 Hysterectomy, LUIS Social History Marital status: Spouse name: Seng Years of education: Number of children: 2 Social History Main Topics Smoking status: Never Smoker Smokeless tobacco: Never Used Alcohol use: No Drug use: No FAMILY HISTORY Problem Relation Age of Onset - Stroke Mother - Heart Mother - Hypertension Mother - Diabetes Mother - GI Mother colitis - Alzheimer's Disease Father - Heart Father Bypass - Breast Cancer Paternal Aunt - Breast Cancer Paternal Grandmother - GI Sister colitis ALLERGIES Allergen Reactions - Effexor [Venlafaxin* Intolerance headaches - Anticholinergics - * cogentin - Codiene [Other] chest pain - Cogentin [Benztropi* Body went rigid - Dex Rachelle [Other] Medrol dose pack: hallucinatios, diff walking - Keflex [Cephalexin] Intolerance makes pt too drowsy - Phenothiazines compazine-1 sided facial weakness (like stroke) - Roxicet [Oxycodone-* Itching CURRENT MEDICATIONS: methocarbamol (ROBAXIN) 750 mg tablet Take 1 tablet by mouth three times daily. PRN spasms and pain Zolpidem (AMBIEN CR) 12.5 mg CR tablet Take 1 tablet by mouth at bedtime as needed for Sedation (generic acceptable) for up to 7 days. Zolpidem (AMBIEN CR) 12.5 mg CR tablet Take 1 tablet by mouth at bedtime as needed for Sedation (generic acceptable) for up to 180 days. lamoTRIgine (LAMICTAL) 100 mg tablet Take 1 tablet by mouth twice daily. BUTRANS 10 mcg/hour Apply 1 Patch as directed every Friday for 12 days. (Dr. Lance) fluticasone (FLONASE) 50 mcg/actuation nasal spray Use 2 Sprays in each nostril once daily. Rinse mouth after use. ARIPiprazole (ABILIFY) 5 mg tablet Take 2 tablets by mouth once daily. zoledronic acid (RECLAST) 5 mg/100 mL pgbk PREMIX piggyback Inject 100 mL intravenously every year. modafinil (PROVIGIL) 100 mg tablet Take 1 tablet by mouth as needed. traZODone (DESYREL) 100 mg tablet Take 3 tablets by mouth daily at bedtime. cholecalciferol, Vitamin D3, (VITAMIN D3) 50,000 unit cap capsule Take 1 capsule by mouth once each week. levothyroxine (SYNTHROID) 50 mcg tablet Take one tablet by mouth once daily, and 1/2 tablet on Sundays. CPAP Mask (per patient preference) optional chin strap (if indicated), filters, tubing / heated tubing, heated humidity and lifetime supplies. Dx. JUVENAL G47.33 327.23 CPAP AutoSV EPAP min= 12 cmH2O, PS min-max = [id number], Max pressure = 25 cmH2O, Rate =Auto, lifetime supplies, Dx: G47.33, G47.37 diclofenac sodium (VOLTAREN) 1 % topical gel Apply 2 g to affected area four times daily. >IV - Start IV START IV APREMILAST (OTEZLA ORAL) Take 1 tablet by mouth twice daily. DOCUSATE CALCIUM (STOOL SOFTENER ORAL) Take 1 tablet by mouth twice daily. oxybutynin XL (DITROPAN XL) 10 mg 24 hr tablet Take 10 mg by mouth once daily. ASCORBIC ACID (VITAMIN C ORAL) Take 1 tablet by mouth once daily. Biotin 10,000 mcg cap Take by mouth twice daily. Coenzyme Q10 200 mg cap Take 200 mg by mouth twice daily. HYDROcodone-acetaminophen 5-325 mg per tablet Take 1 tablet by mouth every 8 hours as needed. pregabalin 150 mg capsule Take 1 capsule by mouth once daily. Dr Lance MAGNESIUM OXIDE/MAG AA CHELATE (MAGNESIUM ORAL) Take 1 tablet by mouth twice daily. LACTOBACILLUS RHAMNOSUS GG (PROBIOTIC ORAL) Take 1 capsule by mouth daily at bedtime. Cyanocobalamin (VITAMIN B-12) 1,000 mcg ORAL Lozg Take 1,000 mcg by mouth once daily. FE PS CMPLX/ASCORBIC ACID (IRON PS COMPLEX-ASCORBIC ACID ORAL) Take 1 tablet by mouth daily at bedtime. LIDOCAINE 5 % (700 MG/PATCH) ADHESIVE PATCH Apply one patch to each hip daily. Remove patch after 12 hours. as needed MULTIVITAMIN TAB daily vitamin b complex(B COMPLEX TAB) Take one(1) tablet daily. REVIEW OF SYSTEMS: Review of Systems Constitutional Positive for Fatigue Negative for Fevers, Night Sweats, Weight Gain and Weight Loss Eyes: Negative Hent: Negative Cardiovascular: Negative Respiratory: Negative GI: Negative : Negative Endocrine: Negative Musculoskeletal Positive for Back Pain Negative for Joint Swelling, Stiff Joints and Muscle Pain Integumentary: Negative Heme/Lymph: Negative Allergy/Immunologic: Negative Neurologic: Negative Psychiatric: Negative Patient's Review of Systems has been reviewed with the patient and updated as appropriate. OBJECTIVE PHYSICAL EXAM: Temp 36.7 ?C (98.1 ?F) (Oral) Ht 152.4 cm (5') Wt 48.2 kg (106 lb 3.2 oz) BMI 20.74 kg/m? GENERAL APPEARANCE: Well nourished, well developed, and no apparent distress. NEURO PSYCH: Patient oriented to person, place, and time. Mood pleasant. Benign affect. CARDIOVASCULAR: Palpable pulses. No edema noted. No varicosities. SKIN: Head, neck, trunk, and extremities dry, intact and without lesions. LYMPHATICS: No palpable nodes in cervical or axillae areas. Groin exam deferred. MUSCULOSKELETAL VISUAL INSPECTION CERVICAL: WNL THORACIC: WNL LUMBAR: WNL PALPATION: SPINOUS PROCESS: No pain. PARASPINALS: No pain. SPINE ROM: LUMBAR ROM: Full ROM Without Pain CERVICAL ROM: Full ROM Without Pain MUSCLE BULK: Normal and symmetrical in the upper AND lower extremities. MUSCLE TONE: Normal. MOTOR: 5/5 in all muscle groups. SENSORY: Normal sensory exam GAIT: unable to tandem walk REFLEXES: +2 to bilateral U/L extremities. PROPRIOCEPTION: Not tested. LONG TRACT SIGNS: No clonus.B/L masterson's BABINSKI: Downward response STRAIGHT LEG TEST: Ipsilateral: Negative. Contralateral: Negative. PERIPHERAL JOINT ROM: HIP ROM: Full ROM Without Pain SHOULDER ROM: Full ROM Without Pain L'HERMITTES SIGN: Negative on the right. Negative on the left. SPURLING'S TEST: Not tested. Data Review: [facility] records reviewed ASSESSMENT/PLAN 67 yo female with outer hip likely trochanteric bursitis bilaterally -Bilateral trochanteric bursa injections Case reviewed with Dr. Stevens. Ritu Simmons DO Spine Medicine Fellow Procedure note: Bilateral trochanteric bursa injections Patient offered steroid injection to bilateral bursa. Patient explained benefit and risks and consented to procedure. A mixture of 40 mg of triamcinolone and 3 cc of lidocaine 1% was used on the right. A separate mixture 40 mg of triamcinolone and 3 cc of lidocaine 1% was used on the left. With patient positioned comfortably on her side, the most painful site in the lateral hip the greater trochanter was identified and marked. After application of a vapo coolant and sterile preparation with alcohol, a 3.5 inch 22-gauge spinal was directed to appropriate position. She tolerated procedure well. Bandages were applied afterward. She was given her home-going instructions. Attending Note: Wilkins findings confirmed. Patient examined. Discussed with the fellow and the patient. Plan as outlined. Karlo Stevens DO Referring Provider: CAROL CONDE [[id number]] Allergies As of Date: 07/29/2017 Noted Allergy Reaction EFFEXOR (VENLAFAXINE HCL) 01/01/2010 5 - Intolerance Comments: headaches ANTICHOLINERGICS - QUATERNARY 01/04/2003 Comments: amy Morelosiene [Other] 01/04/2003 Comments: chest pain AMY (BENZTROPINE MESYLATE) 03/16/2008 Comments: Body went rigid dex rachelle [Other] 03/16/2008 Comments: Medrol dose pack: hallucinatios, diff walking KEFLEX (CEPHALEXIN) 12/18/2011 5 - Intolerance Comments: makes pt too drowsy PHENOTHIAZINES 01/04/2003 Comments: compazine-1 sided facial weakness (like stroke) ROXICET (OXYCODONE-ACETAMINOPHEN) 03/15/2010 9 - Itching Date Reviewed: 07/29/2017 Reviewed by: Sarahy Leal Ma - Fully Assessed Reason for Visit: Bilateral bursa injection [Other] Cmt: referred by Dr Conde Reason For Visit History Recorded Primary Visit Diagnosis:Trochanteric bursitis of both hips [M70.61, M70.62] Order(s):triamcinolone acetonide (KENALOG) 40 mg/mL injection2 mL by INTRABURSAL route one time only for 1 dose.Disp: 2 mLRfl: 0 Prescriptions as of 07/29/2017 Sig: METHOCARBAMOL 750 MG TABLET Take 1 tablet by mouth three * ZOLPIDEM ER 12.5 MG TABLET,EX* Take 1 tablet by mouth at bed* ZOLPIDEM ER 12.5 MG TABLET,EX* Take 1 tablet by mouth at bed* LAMOTRIGINE 100 MG TABLET Take 1 tablet by mouth twice * BUTRANS 10 MCG/HOUR TRANSDERM* Apply 1 Patch as directed jose alfredo* FLUTICASONE 50 MCG/ACTUATION * Use 2 Sprays in each nostril * ARIPIPRAZOLE 5 MG TABLET Take 2 tablets by mouth once * ZOLEDRONIC ACID 5 MG/100 ML I* Inject 100 mL intravenously e* MODAFINIL 100 MG TABLET Take 1 tablet by mouth as nee* TRAZODONE 100 MG TABLET Take 3 tablets by mouth daily* CHOLECALCIFEROL (VITAMIN D3) * Take 1 capsule by mouth once * LEVOTHYROXINE 50 MCG TABLET Take one tablet by mouth once* CPAP Mask (per patient preference)* CPAP AutoSV EPAP min= 12 cmH2O, PS* DICLOFENAC 1 % TOPICAL GEL Apply 2 g to affected area fo* COMPOUNDED PRESCRIPTION START IV OTEZLA ORAL Take 1 tablet by mouth twice * STOOL SOFTENER ORAL Take 1 tablet by mouth twice * OXYBUTYNIN CHLORIDE ER 10 MG * Take 10 mg by mouth once vashti* VITAMIN C ORAL Take 1 tablet by mouth once d* BIOTIN 10,000 MCG CAPSULE Take by mouth twice daily. COENZYME Q10 200 MG CAPSULE Take 200 mg by mouth twice da* HYDROCODONE 5 MG-ACETAMINOPHE* Take 1 tablet by mouth every * PREGABALIN 150 MG CAPSULE Take 1 capsule by mouth once * Patient taking differently: Take 150 mg by mouth twice da* MAGNESIUM ORAL Take 1 tablet by mouth twice * PROBIOTIC ORAL Take 1 capsule by mouth daily* CYANOCOBALAMIN (VIT B-12) 1,0* Take 1,000 mcg by mouth once * IRON PS COMPLEX-ASCORBIC ACID* Take 1 tablet by mouth daily * LIDOCAINE 5 % TOPICAL PATCH Apply one patch to each hip d* MULTIVITAMIN TABLET daily B COMPLEX TABLET,EXTENDED REL* Take one(1) tablet daily. TRIAMCINOLONE ACETONIDE 40 MG* 2 mL by INTRABURSAL route one* More... More... Problem List As Of Date 07/29/2017 Noted Resolved Obesity, unspecified [E66.9] INVALID FOR*09/18/2012 More... More... Depressive disorder, not elsewhere classified [*INVALID FOR*10/21/2012 More... Mixed hyperlipidemia [E78.2] INVALID FOR* More... BONE AND CARTILAGE DIS NOS [M89.9, M94.9] INVALID FOR* More... Hypothyroidism [E03.9] INVALID FOR* More... Unspecified sleep apnea [G47.30] INVALID FOR*06/20/2014 More... More... Radiculopathy, lumbar region [M54.16] INVALID FOR* More... More... DISC DIS NEC/NOS-THORAC [M51.9] INVALID FOR* More... CERVICALGIA [M54.2] INVALID FOR* More... More... More... Vitamin D deficiency [E55.9] INVALID FOR* More... More... Insomnia [G47.00] 04/13/2014 Chronic insomnia [F51.04] INVALID FOR*04/13/2014 Class: Chronic More... 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 Obstructive Sleep apnea - AHI 48 [G47.33] INVALID FOR* More... Osteoporosis, unspecified [M81.0] INVALID FOR*08/09/2014 Osteoporosis [M81.0] INVALID FOR* More... Central sleep apnea in conditions classified el*INVALID FOR* DDD (degenerative disc disease), cervical [M50.*INVALID FOR* DDD (degenerative disc disease), lumbar [M51.36]INVALID FOR* Chronic pain [G89.29] INVALID FOR* Memory deficits [R41.3] INVALID FOR* Onychomycosis [B35.1] INVALID FOR* More... Psoriatic arthritis (HCC) [L40.50] INVALID FOR* Rotator cuff arthropathy, left [M12.812] INVALID FOR* Cervical radiculopathy [M54.12] INVALID FOR* Chronic bilateral low back pain with bilateral *INVALID FOR* Prescriptions ordered this encounter Disp Refills Start End TRIAMCINOLONE ACETONIDE 40 MG/ML LAUREN* 2 mL 0 07/29/2017 07/29/2017 Class: In Office Route: INTRABURSAL Si mL by INTRABURSAL route one time only for 1 dose. Disposition: Return if symptoms worsen or fail to improve. Follow-up and Disposition History Recorded Encounter Status:Closed by KARLO STEVENS on 07/29/17 PROGRESS Observed: 07/24/2017 Status: COMPLETED Source: [place] 3:08 PM [facility] REPOSITORY HNO ID: [id number] Author: Angelique (Pt) Barbie Service: (none) Author Type: Physical Therapist Type: Progress Notes Filed: 07/24/2017 3:14 PM Note Text: Episode Visit Count: 4 Therapist That Will Oversee The Plan Of Care: Angelique Valentin PT Start of Care Date: 07/09/17 Onset Date: 07/10/07 Plan of Care Certification Date: 07/09/17 REHABILITATION AND SPORTS THERAPY PHYSICAL THERAPY TREATMENT NOTE ASSESSMENT: Frannie Romo demonstrated no improvements in low back pain. She has not been doing her exercises for therapy because she has been busy working outside and has been under the weather due to the work. Patient felt good while traction was being performed but as soon as traction was done her low back pain came back as well as pain below her shoulder blades. The patient will continue to benefit from continued skilled physical therapy for core strengthening in a neutral spine and traction. PLAN FOR NEXT VISIT: core strengthening in neutral spine. Possible try pull ups/downs with theraband. SUBJECTIVE: I was just outside doing yard work and feel terrible! Had thyme along side her house and had to pull thyme up and planting grass, so been under the weather due to this work. Hasn't done exercises for the last 3 days due to busy working outside. Pain Score: 7/10 Pain Location: Back Description: Throbbing;Aching;Burning Frequency: Continuous Post Treatment Pain Score: 8/10 Pain Location: Back (and moved up to below the shoulder blades) Post Treatment Pain Description: Throbbing OBJECTIVE MEASURES WITH LEVEL OF FUNCTION: Good relief of low back symptoms with traction TREATMENT: Therapeutic Exercise: 4: Recumbent stepper, Seat 10, arms at 4, 5 (no change in R knee throbbing) 9: Hip 3-Way: ABDuction/Flexion/Extension x15, B with BUE support 10: toe taps on Bosu 1x15, BUE support 16: Encouraged patient to perform her HEP: posterior pelvic tilts, BKFO, hip 3 way, and standing with good posture Skilled Intervention: Patient was educated in proper exercise technique and purpose for exercises. Skilled judgment was provided in selection of appropriate interventions. Manual Therapy: 1: Hooklying traction with belt 20 minutes (felt good during traction but came back as soon as stopped) 2: Patient to apply heat to back when she gets home to help with the back achiness/trobbing Skilled Intervention: Manual skills to improve joint mobility, ROM, and decrease pain. Utilized anatomy knowledge of the therapist, and assessment of patient's response to intervention. Billing: [facility]: Therapeutic Exercise ([id number]): 1:1 time: 23 minutes (2 units: 23-37 mins) Manual Therapy ([id number]): 1:1 time: 20 minutes (1 unit: 8-22 mins) Total time: 43 minutes Angelique Valentin PT CNTHERAPY Observed: 07/21/2017 Status: COMPLETED Source: [place] 5:00 PM [facility] [place] REPOSITORY OT/PT/Speech Visit (PTWS) FRANNIE ROMO ([id number]) 1950 F KARLENE Date Time Provider Department 07/21/17 5:00 PM ANGELIQUE VALENTIN (PT) PTWS Date Time Provider Department Center 07/21/2017 5:00 PM [id number], DIANA (PT)PTWS [facility] RANDI Reason for Visit: Physical Therapy [503] Primary Visit Diagnosis:Chronic bilateral low back pain with bilateral sciatica [M54.42, M54.41, G89.29] Allergies As of Date: 07/21/2017 Noted Allergy Reaction EFFEXOR (VENLAFAXINE HCL) 01/01/2010 5 - Intolerance Comments: headaches ANTICHOLINERGICS - QUATERNARY 01/04/2003 Comments: amy REYES (BENZTROPINE MESYLATE) 03/16/2008 Comments: Body went rigid Codiene [Other] 01/04/2003 Comments: chest pain KEFLEX (CEPHALEXIN) 12/18/2011 5 - Intolerance Comments: makes pt too drowsy PHENOTHIAZINES 01/04/2003 Comments: compazine-1 sided facial weakness (like stroke) ROXICET (OXYCODONE-ACETAMINOPHEN) 03/15/2010 9 - Itching dex rachelle [Other] 03/16/2008 Comments: Medrol dose pack: hallucinatios, diff walking Date Reviewed: 07/14/2017 Reviewed by: Raul Gomez - Fully Assessed Prescriptions as of 07/21/2017 Sig: METHOCARBAMOL 750 MG TABLET Take 1 tablet by mouth three * ZOLPIDEM ER 12.5 MG TABLET,EX* Take 1 tablet by mouth at bed* LAMOTRIGINE 100 MG TABLET Take 1 tablet by mouth twice * FLUTICASONE 50 MCG/ACTUATION * Use 2 Sprays in each nostril * ARIPIPRAZOLE 5 MG TABLET Take 2 tablets by mouth once * ZOLEDRONIC ACID 5 MG/100 ML I* Inject 100 mL intravenously e* MODAFINIL 100 MG TABLET Take 1 tablet by mouth as nee* TRAZODONE 100 MG TABLET Take 3 tablets by mouth daily* CHOLECALCIFEROL (VITAMIN D3) * Take 1 capsule by mouth once * LEVOTHYROXINE 50 MCG TABLET Take one tablet by mouth once* CPAP Mask (per patient preference)* CPAP AutoSV EPAP min= 12 cmH2O, PS* DICLOFENAC 1 % TOPICAL GEL Apply 2 g to affected area fo* COMPOUNDED PRESCRIPTION START IV OTEZLA ORAL Take 1 tablet by mouth twice * STOOL SOFTENER ORAL Take 1 tablet by mouth twice * OXYBUTYNIN CHLORIDE ER 10 MG * Take 10 mg by mouth once vashti* VITAMIN C ORAL Take 1 tablet by mouth once d* BIOTIN 10,000 MCG CAPSULE Take by mouth twice daily. COENZYME Q10 200 MG CAPSULE Take 200 mg by mouth twice da* HYDROCODONE 5 MG-ACETAMINOPHE* Take 1 tablet by mouth every * PREGABALIN 150 MG CAPSULE Take 1 capsule by mouth once * Patient taking differently: Take 150 mg by mouth twice da* MAGNESIUM ORAL Take 1 tablet by mouth twice * PROBIOTIC ORAL Take 1 capsule by mouth daily* CYANOCOBALAMIN (VIT B-12) 1,0* Take 1,000 mcg by mouth once * IRON PS COMPLEX-ASCORBIC ACID* Take 1 tablet by mouth daily * LIDOCAINE 5 % TOPICAL PATCH Apply one patch to each hip d* MULTIVITAMIN TABLET daily B COMPLEX TABLET,EXTENDED REL* Take one(1) tablet daily. Progress Notes: Angelique Valentin, PT 07/24/2017 3:14 PM Signed Episode Visit Count: 4 Therapist That Will Oversee The Plan Of Care: Angelique Valentin, PT Start of Care Date: 07/09/17 Onset Date: 07/10/07 Plan of Care Certification Date: 07/09/17 REHABILITATION AND SPORTS THERAPY PHYSICAL THERAPY TREATMENT NOTE ASSESSMENT: Frannie Romo demonstrated no improvements in low back pain. She has not been doing her exercises for therapy because she has been busy working outside and has been under the weather due to the work. Patient felt good while traction was being performed but as soon as traction was done her low back pain came back as well as pain below her shoulder blades. The patient will continue to benefit from continued skilled physical therapy for core strengthening in a neutral spine and traction. PLAN FOR NEXT VISIT: core strengthening in neutral spine. Possible try pull ups/downs with theraband. SUBJECTIVE: I was just outside doing yard work and feel terrible! Had thyme along side her house and had to pull thyme up and planting grass, so been under the weather due to this work. Hasn't done exercises for the last 3 days due to busy working outside. Pain Score: 7/10 Pain Location: Back Description: Throbbing;Aching;Burning Frequency: Continuous Post Treatment Pain Score: 8/10 Pain Location: Back (and moved up to below the shoulder blades) Post Treatment Pain Description: Throbbing OBJECTIVE MEASURES WITH LEVEL OF FUNCTION: Good relief of low back symptoms with traction TREATMENT: Therapeutic Exercise: 4: Recumbent stepper, Seat 10, arms at 4, 5 (no change in R knee throbbing) 9: Hip 3-Way: ABDuction/Flexion/Extension x15, B with BUE support 10: toe taps on Bosu 1x15, BUE support 16: Encouraged patient to perform her HEP: posterior pelvic tilts, BKFO, hip 3 way, and standing with good posture Skilled Intervention: Patient was educated in proper exercise technique and purpose for exercises. Skilled judgment was provided in selection of appropriate interventions. Manual Therapy: 1: Hooklying traction with belt 20 minutes (felt good during traction but came back as soon as stopped) 2: Patient to apply heat to back when she gets home to help with the back achiness/trobbing Skilled Intervention: Manual skills to improve joint mobility, ROM, and decrease pain. Utilized anatomy knowledge of the therapist, and assessment of patient's response to intervention. Billing: [facility]: Therapeutic Exercise ([id number]): 1:1 time: 23 minutes (2 units: 23-37 mins) Manual Therapy ([id number]): 1:1 time: 20 minutes (1 unit: 8-22 mins) Total time: 43 minutes Angelique Valentin PT PROGRESS Observed: 07/20/2017 Status: COMPLETED Source: [place] 1:30 AM [facility] [place] REPOSITORY HNO ID: [id number] Author: Angelique (Pt) Barbie Service: (none) Author Type: Physical Therapist Type: Progress Notes Filed: 07/20/2017 1:36 AM Note Text: Episode Visit Count: 3 Therapist That Will Oversee The Plan Of Care: Angelique Valentin PT Start of Care Date: 07/09/17 Onset Date: 07/10/07 Plan of Care Certification Date: 07/09/17 REHABILITATION AND SPORTS THERAPY PHYSICAL THERAPY TREATMENT NOTE ASSESSMENT: Frannie Romo demonstrated no improvements in low back pain after session and reported slight throbbing in her R knee. Patient has an injection next week scheduled with Dr. Lance. The patient will continue to benefit from continued skilled physical therapy for core strengthening in neutral spine and graded activity as patient able to tolerate. PLAN FOR NEXT VISIT: core strengthening in neutral spine. Possible try pull ups/downs with theraband. SUBJECTIVE: Dr. Lance will be doing an injection in low back next week, which will be a transforaminal block. Needs to change appointments last week of July. Pain Score: 5/10 Pain Location: Back (r hip and radiating to L side.) Description: Aching;Throbbing Frequency: Continuous Post Treatment Pain Score: 2/10 (No change in back symptoms.) Pain Location: Knee - Right (thobbing) OBJECTIVE MEASURES WITH LEVEL OF FUNCTION: Patient had R knee pain after performing forwards and lateral step exercises TREATMENT: Therapeutic Exercise: 2: Posterior Pevlic x12, 5 sec hold. 4: Recumbent stepper, Seat 10, arms at 4, 4.15 stopped due to R knee throbbing 6: BKFO x12, B 9: *Hip 3-Way: ABDuction/Flexion/Extension x10, B with BUE support 10: toe taps on Bosu 2x10, BUE support 11: 2 step B UE support for forwards step ups and lateral step ups x10, B 12: Seated purturbations with green band 3x10 fowards and lateral each direction 13: *Posture perfect 30 sec, 3x (using a towel roll behind head) 14: Standing scapular squeezes with peach theraband 2x10 15: Standing alternating arms with peach band 1x10 Skilled Intervention: Patient was educated in proper exercise technique and purpose for exercises. Reviewed and educated patient on additions/changes for home exercise program as above (*) Skilled judgment was provided in selection of appropriate interventions. Written handout provided for HEP Correct performance of therapeutic exercises was facilitated with verbal and visual cuing. Billing: [facility]: Therapeutic Exercise ([id number]): 1:1 time: 45 minutes (3 units: 38-52 mins) Total time: 45 minutes Angelique Valentin PT CNTHERAPY Observed: 07/16/2017 Status: COMPLETED Source: [place] 3:30 PM [facility] [place] REPOSITORY OT/PT/Speech Visit (PTWS) FRANNIE ROMO ([id number]) 1950 Katie SOLER Date Time Provider Department 07/16/17 3:30 PM ANGELIQUE VALENTINPT) PTPEDRO Date Time Provider Department Center 07/16/2017 3:30 PM [id number], DIANA (PT)PTPEDRO FHMarni BRYAN Reason for Visit: Physical Therapy [503] Primary Visit Diagnosis:Chronic bilateral low back pain with bilateral sciatica [M54.42, M54.41, G89.29] Allergies As of Date: 07/16/2017 Noted Allergy Reaction EFFEXOR (VENLAFAXINE HCL) 01/01/2010 5 - Intolerance Comments: headaches ANTICHOLINERGICS - QUATERNARY 01/04/2003 Comments: cogentin COGENTIN (BENZTROPINE MESYLATE) 03/16/2008 Comments: Body went rigid Codiene [Other] 01/04/2003 Comments: chest pain KEFLEX (CEPHALEXIN) 12/18/2011 5 - Intolerance Comments: makes pt too drowsy PHENOTHIAZINES 01/04/2003 Comments: compazine-1 sided facial weakness (like stroke) ROXICET (OXYCODONE-ACETAMINOPHEN) 03/15/2010 9 - Itching dex rachelle [Other] 03/16/2008 Comments: Medrol dose pack: hallucinatios, diff walking Date Reviewed: 07/14/2017 Reviewed by: Raul Gomez - Fully Assessed Prescriptions as of 07/16/2017 Sig: METHOCARBAMOL 750 MG TABLET Take 1 tablet by mouth three * ZOLPIDEM ER 12.5 MG TABLET,EX* Take 1 tablet by mouth at bed* LAMOTRIGINE 100 MG TABLET Take 1 tablet by mouth twice * FLUTICASONE 50 MCG/ACTUATION * Use 2 Sprays in each nostril * ARIPIPRAZOLE 5 MG TABLET Take 2 tablets by mouth once * ZOLEDRONIC ACID 5 MG/100 ML I* Inject 100 mL intravenously e* MODAFINIL 100 MG TABLET Take 1 tablet by mouth as nee* TRAZODONE 100 MG TABLET Take 3 tablets by mouth daily* CHOLECALCIFEROL (VITAMIN D3) * Take 1 capsule by mouth once * LEVOTHYROXINE 50 MCG TABLET Take one tablet by mouth once* CPAP Mask (per patient preference)* CPAP AutoSV EPAP min= 12 cmH2O, PS* DICLOFENAC 1 % TOPICAL GEL Apply 2 g to affected area fo* COMPOUNDED PRESCRIPTION START IV OTEZLA ORAL Take 1 tablet by mouth twice * STOOL SOFTENER ORAL Take 1 tablet by mouth twice * OXYBUTYNIN CHLORIDE ER 10 MG * Take 10 mg by mouth once vashti* VITAMIN C ORAL Take 1 tablet by mouth once d* BIOTIN 10,000 MCG CAPSULE Take by mouth twice daily. COENZYME Q10 200 MG CAPSULE Take 200 mg by mouth twice da* HYDROCODONE 5 MG-ACETAMINOPHE* Take 1 tablet by mouth every * PREGABALIN 150 MG CAPSULE Take 1 capsule by mouth once * Patient taking differently: Take 150 mg by mouth twice da* MAGNESIUM ORAL Take 1 tablet by mouth twice * PROBIOTIC ORAL Take 1 capsule by mouth daily* CYANOCOBALAMIN (VIT B-12) 1,0* Take 1,000 mcg by mouth once * IRON PS COMPLEX-ASCORBIC ACID* Take 1 tablet by mouth daily * LIDOCAINE 5 % TOPICAL PATCH Apply one patch to each hip d* MULTIVITAMIN TABLET daily B COMPLEX TABLET,EXTENDED REL* Take one(1) tablet daily. Progress Notes: Angelique Valentin PT 07/20/2017 1:36 AM Signed Episode Visit Count: 3 Therapist That Will Oversee The Plan Of Care: Angelique Valentin PT Start of Care Date: 07/09/17 Onset Date: 07/10/07 Plan of Care Certification Date: 07/09/17 REHABILITATION AND SPORTS THERAPY PHYSICAL THERAPY TREATMENT NOTE ASSESSMENT: Frannie Joya Clarissa demonstrated no improvements in low back pain after session and reported slight throbbing in her R knee. Patient has an injection next week scheduled with Dr. Lance. The patient will continue to benefit from continued skilled physical therapy for core strengthening in neutral spine and graded activity as patient able to tolerate. PLAN FOR NEXT VISIT: core strengthening in neutral spine. Possible try pull ups/downs with theraband. SUBJECTIVE: Dr. Lance will be doing an injection in low back next week, which will be a transforaminal block. Needs to change appointments last week of July. Pain Score: 5/10 Pain Location: Back (r hip and radiating to L side.) Description: Aching;Throbbing Frequency: Continuous Post Treatment Pain Score: 2/10 (No change in back symptoms.) Pain Location: Knee - Right (thobbing) OBJECTIVE MEASURES WITH LEVEL OF FUNCTION: Patient had R knee pain after performing forwards and lateral step exercises TREATMENT: Therapeutic Exercise: 2: Posterior Pevlic x12, 5 sec hold. 4: Recumbent stepper, Seat 10, arms at 4, 4.15 stopped due to R knee throbbing 6: BKFO x12, B 9: *Hip 3-Way: ABDuction/Flexion/Extension x10, B with BUE support 10: toe taps on Bosu 2x10, BUE support 11: 2 step B UE support for forwards step ups and lateral step ups x10, B 12: Seated purturbations with green band 3x10 fowards and lateral each direction 13: *Posture perfect 30 sec, 3x (using a towel roll behind head) 14: Standing scapular squeezes with peach theraband 2x10 15: Standing alternating arms with peach band 1x10 Skilled Intervention: Patient was educated in proper exercise technique and purpose for exercises. Reviewed and educated patient on additions/changes for home exercise program as above (*) Skilled judgment was provided in selection of appropriate interventions. Written handout provided for HEP Correct performance of therapeutic exercises was facilitated with verbal and visual cuing. Billing: [facility]: Therapeutic Exercise ([id number]): 1:1 time: 45 minutes (3 units: 38-52 mins) Total time: 45 minutes Angelique Valentin PT PROGRESS Observed: 07/15/2017 Status: COMPLETED Source: [place] 8:46 AM [facility] [place] REPOSITORY O ID: [id number] Author: Angelique Valentin Service: (none) Author Type: Physical Therapist Type: Progress Notes Filed: 07/15/2017 8:54 AM Note Text: Episode Visit Count: 2 Therapist That Will Oversee The Plan Of Care: Angelique Valentin PT Start of Care Date: 07/09/17 Onset Date: 07/10/07 Plan of Care Certification Date: 07/09/17 REHABILITATION AND SPORTS THERAPY PHYSICAL THERAPY TREATMENT NOTE ASSESSMENT: Frannie Romo demonstrated no improvements in her chronic low back pain. She is unable to tolerate transverse abdominal bracing as she reports this increases her low back pain. Lengthy discussion with patient that it is important to perform exercises that do not increase her baseline pain. Hooklying traction felt good while performing but as soon as stopped the traction the pain returned per patient. The patient may continue to benefit from continued skilled physical therapy for core strengthening and graded activity. Patient has an appointment on Weds with Dr. Basali, so will await to hear recommendations. PLAN FOR NEXT VISIT: Try: Standing 4 way hip, toe taps, step ups SUBJECTIVE: Patient states that when she pulls her belly button to her spine she has pain in her back, which is the same pain she was coming to PT for. Pelvic tilts do not hurt as bad as pullying belly button to spine exercise. Patient to see Dr. Lance on Fris for evaluation and recommendation for injections. Patient has been in the car for most of the day d/t driving to [place] to get an injection in her L shoulder and then to [facility] for an appointment. Pain Score: 5/10 Pain Location: Back (R hip) Description: Aching;Throbbing Frequency: Continuous Post Treatment Pain Score: No Change OBJECTIVE MEASURES WITH LEVEL OF FUNCTION: Posture / Alignment Posture: (Flat R foot--may benefit from an orthotic) TREATMENT: Therapeutic Exercise: 2: Posterior Pevlic x10, 5 sec hold. (felt ok) 3: Transverse abdominal bracing in hooklying x5, unable to perform without pain, so stopped. Recommended patient d/c from HEP as unable to perform without pain. 4: Recumbent stepper, Seat 10, just the R arm d/t L arm getting an injection 3.30 minutes stopped due to burning on L side of low back. 5: Heel slides caused irritation in low back especially when performing on the L side, so discontinued 6: *BKFO x10, B 7: Educated patient that do not want exercises given to HEP to cause increased pain as that is causing irritation to bones/tendons. 8: Provided patient with the information that Dr. Conde recommended from her last vist that she may wish to pursue a transforaminal block. Wrote this out for the patient to take to give to Dr. Santacruz on Weds Skilled Intervention: Patient was educated in proper exercise technique and purpose for exercises. Reviewed and educated patient on additions/changes for home exercise program as above (*) Provided written instruction for home exercise program to facilitate proper performance and compliance. Correct performance of therapeutic exercises was facilitated with verbal, visual and tactile cuing. Patient education as noted. Manual Therapy: 1: Hooklying traction with belt 15 minutes not any better and not any worse. Skilled Intervention: Manual skills to improve joint mobility, ROM, and decrease pain. Utilized anatomy knowledge of the therapist, and assessment of patient's response to intervention. Billing: [facility]: Therapeutic Exercise ([id number]): 1:1 time: 30 minutes (2 units: 23-37 mins) Manual Therapy ([id number]): 1:1 time: 15 minutes (1 unit: 8-22 mins) Total time: 45 minutes Angelique Valentin PT CNTHERAPY Observed: 07/14/2017 Status: COMPLETED Source: [place] 5:45 PM [facility] REPOSITORY OT/PT/Speech Visit (PTWS) FRANNIE ROMO ([id number]) 1950 F KARLENE Date Time Provider Department 07/14/17 5:45 PM ANGELIQUE VALENTIN (PT) PTWS Date Time Provider Department Center 07/14/2017 5:45 PM [id number], DIANA (PT)PTWS [facility] RANDI Reason for Visit: Physical Therapy [503] Primary Visit Diagnosis:Chronic bilateral low back pain with bilateral sciatica [M54.42, M54.41, G89.29] Allergies As of Date: 07/14/2017 Noted Allergy Reaction EFFEXOR (VENLAFAXINE HCL) 01/01/2010 5 - Intolerance Comments: headaches ANTICHOLINERGICS - QUATERNARY 01/04/2003 Comments: amy REYES (BENZTROPINE MESYLATE) 03/16/2008 Comments: Body went rigid Codiene [Other] 01/04/2003 Comments: chest pain KEFLEX (CEPHALEXIN) 12/18/2011 5 - Intolerance Comments: makes pt too drowsy PHENOTHIAZINES 01/04/2003 Comments: compazine-1 sided facial weakness (like stroke) ROXICET (OXYCODONE-ACETAMINOPHEN) 03/15/2010 9 - Itching dex rachelle [Other] 03/16/2008 Comments: Medrol dose pack: hallucinatios, diff walking Date Reviewed: 07/14/2017 Reviewed by: Raul Gomez - Fully Assessed Prescriptions as of 07/14/2017 Sig: METHOCARBAMOL 750 MG TABLET Take 1 tablet by mouth three * ZOLPIDEM ER 12.5 MG TABLET,EX* Take 1 tablet by mouth at bed* ZOLPIDEM ER 12.5 MG TABLET,EX* Take 1 tablet by mouth at bed* LAMOTRIGINE 100 MG TABLET Take 1 tablet by mouth twice * BUTRANS 10 MCG/HOUR TRANSDERM* Apply 1 Patch as directed jose alfredo* FLUTICASONE 50 MCG/ACTUATION * Use 2 Sprays in each nostril * ARIPIPRAZOLE 5 MG TABLET Take 2 tablets by mouth once * ZOLEDRONIC ACID 5 MG/100 ML I* Inject 100 mL intravenously e* MODAFINIL 100 MG TABLET Take 1 tablet by mouth as nee* TRAZODONE 100 MG TABLET Take 3 tablets by mouth daily* CHOLECALCIFEROL (VITAMIN D3) * Take 1 capsule by mouth once * LEVOTHYROXINE 50 MCG TABLET Take one tablet by mouth once* CPAP Mask (per patient preference)* CPAP AutoSV EPAP min= 12 cmH2O, PS* DICLOFENAC 1 % TOPICAL GEL Apply 2 g to affected area fo* COMPOUNDED PRESCRIPTION START IV OTEZLA ORAL Take 1 tablet by mouth twice * STOOL SOFTENER ORAL Take 1 tablet by mouth twice * OXYBUTYNIN CHLORIDE ER 10 MG * Take 10 mg by mouth once vashti* VITAMIN C ORAL Take 1 tablet by mouth once d* BIOTIN 10,000 MCG CAPSULE Take by mouth twice daily. COENZYME Q10 200 MG CAPSULE Take 200 mg by mouth twice da* HYDROCODONE 5 MG-ACETAMINOPHE* Take 1 tablet by mouth every * PREGABALIN 150 MG CAPSULE Take 1 capsule by mouth once * Patient taking differently: Take 150 mg by mouth twice da* MAGNESIUM ORAL Take 1 tablet by mouth twice * PROBIOTIC ORAL Take 1 capsule by mouth daily* CYANOCOBALAMIN (VIT B-12) 1,0* Take 1,000 mcg by mouth once * IRON PS COMPLEX-ASCORBIC ACID* Take 1 tablet by mouth daily * LIDOCAINE 5 % TOPICAL PATCH Apply one patch to each hip d* MULTIVITAMIN TABLET daily B COMPLEX TABLET,EXTENDED REL* Take one(1) tablet daily. Progress Notes: Angelique Valentin PT 07/15/2017 8:54 AM Signed Episode Visit Count: 2 Therapist That Will Oversee The Plan Of Care: Angelique Valentin PT Start of Care Date: 07/09/17 Onset Date: 07/10/07 Plan of Care Certification Date: 07/09/17 [facility] PHYSICAL THERAPY TREATMENT NOTE ASSESSMENT: Frannie Romo demonstrated no improvements in her chronic low back pain. She is unable to tolerate transverse abdominal bracing as she reports this increases her low back pain. Lengthy discussion with patient that it is important to perform exercises that do not increase her baseline pain. Hooklying traction felt good while performing but as soon as stopped the traction the pain returned per patient. The patient may continue to benefit from continued skilled physical therapy for core strengthening and graded activity. Patient has an appointment on with Dr. Lance, so will await to hear recommendations. PLAN FOR NEXT VISIT: Try: Standing 4 way hip, toe taps, step ups SUBJECTIVE: Patient states that when she pulls her belly button to her spine she has pain in her back, which is the same pain she was coming to PT for. Pelvic tilts do not hurt as bad as pullying belly button to spine exercise. Patient to see Dr. Lance on for evaluation and recommendation for injections. Patient has been in the car for most of the day d/t driving to [place] to get an injection in her L shoulder and then to [facility] for an appointment. Pain Score: 5/10 Pain Location: Back (R hip) Description: Aching;Throbbing Frequency: Continuous Post Treatment Pain Score: No Change OBJECTIVE MEASURES WITH LEVEL OF FUNCTION: Posture / Alignment Posture: (Flat R foot--may benefit from an orthotic) TREATMENT: Therapeutic Exercise: 2: Posterior Pevlic x10, 5 sec hold. (felt ok) 3: Transverse abdominal bracing in hooklying x5, unable to perform without pain, so stopped. Recommended patient d/c from [facility] as unable to perform without pain. 4: Recumbent stepper, Seat 10, just the R arm d/t L arm getting an injection 3.30 minutes stopped due to burning on L side of low back. 5: Heel slides caused irritation in low back especially when performing on the L side, so discontinued 6: *BKFO x10, B 7: Educated patient that do not want exercises given to HEP to cause increased pain as that is causing irritation to bones/tendons. 8: Provided patient with the information that Dr. Conde recommended from her last vist that she may wish to pursue a transforaminal block. Wrote this out for the patient to take to give to Dr. Santacruz [place] Skilled Intervention: Patient was educated in proper exercise technique and purpose for exercises. Reviewed and educated patient on additions/changes for home exercise program as above (*) Provided written instruction for home exercise program to facilitate proper performance and compliance. Correct performance of therapeutic exercises was facilitated with verbal, visual and tactile cuing. Patient education as noted. Manual Therapy: 1: Hooklying traction with belt 15 minutes not any better and not any worse. Skilled Intervention: Manual skills to improve joint mobility, ROM, and decrease pain. Utilized anatomy knowledge of the therapist, and assessment of patient's response to intervention. Billing: [facility]: Therapeutic Exercise (78125): 1:1 time: 30 minutes (2 units: 23-37 mins) Manual Therapy (05231): 1:1 time: 15 minutes (1 unit: 8-22 mins) Total time: 45 minutes Angelique Valentin PT PROGRESS Observed: 07/14/2017 Status: COMPLETED Source: [place] 11:34 AM [facility] [place] [facility] HNO ID: [id number] Author: Raul Gomez Service: (none) Author Type: Physician Type: Progress Notes Filed: 07/14/2017 12:30 PM Note Text: Voice recognition was used for this dictation. It may contain errors in spelling or syntax. July 14, 2017 Frannie Romo Patient presents with: left shoulder pain PAIN EVALUATION 07/14/2017 Pain Score: 3 Pain Location: Shoulder-Left Description: Aching Duration Amount of Time: - yrs Duration Units: Years Frequency: Continuous Intervention: Medication injections PAST MEDICAL HISTORY Diagnosis Date - Abdominal pain, unspecified site 02/28/2008 Reportedly had sigmoid resetion for adhesions about age 37: mutiple surgeries for adhesions, endometriosis, etc Camelia, LUIS (no comment on ovaries), cliff in sigmoid area by CT in 04-06 [facility] (Colorectal surgery) 12-05: prob small midline, incis hernia, did not rec repeat EGD/Colon/Surg-more adhesions WBC 5.8 K, HCT 43% in 01-04 Int hems ligated in 01-04 per [facility] - Abnormal glucose tolerance test 01/16/2012 - Abnormality of gait 05/01/2011 - Acute gastritis without mention of hemorrhage 11/21/2009 - Benign paroxysmal positional vertigo 06/10/2011 - Calculus of kidney - Cancer (HCC) - Cervicalgia - Colon polyp, hyperplastic May 2006 - Depression - Depressive disorder, not elsewhere classified - Disorder of bone and cartilage, unspecified - Disorders of bursae and tendons in shoulder region, unspecified 02/28/2008 Arthroscopic R rotator cuff and biceps tendon repair 05-08-[address] Karthik Bella at [facility] - Dysphagia prior esophageal dilations twice - Dysphagia - Dysphagia, unspecified(787.20) - Epilepsy ([facility]) 02/12/2012 - Esophageal reflux - Esophagitis, unspecified - Examination of participant in clinical trial 03/01/2010 IRB: [id number] Study Title: Pelvic floor Disorders in Bariatric Surgery Patients Visit: Baseline PI: Patricia Patel MD Supervisor Finishing Room/Pager:Mayra Mar RN # [phone] Patient seen for PFD research study (IRB 06407). Patient agreed to participate in the QOL survey portion of the trial. Patient completed baseline survey. SIG:Mayra Mar RN - Grief 11/20/2011 - Gum symptoms - History of bladder cancer - Insomnia - Malignant neoplasm of bladder, part unspecified 02/15/2008 Biopsy 11-04: non-invasive, low grade papillary carcinoma Cystosocpy 11-[address] David López in [place]: no tumors, stones or foreign bodies Urology rec Cystoscopy in 03-07 and then q 6 mo for 3 years then yearly Urology rec antibiotics in 08-06 for chronic cystitis after voided urine for cytology: may treat for 3-6 months - Microscopic hematuria 02/21/2010 - Nasal congestion 08/18/2013 - Nasal obstruction 08/31/2014 - Obesity, unspecified 11-07-09 stated BMI 38 ht: 61 wt: 201 lbs - Obstructive sleep apnea [facility] - Other and unspecified disc disorder of thoracic region - Other and unspecified hyperlipidemia - Other pain disorders related to psychological factors 05/15/2011 - Pain in limb 06/09/2008 Pain reportedly started after a fall in the shower in 2007 Junior 05-09: rec Neurontin Elayne 06-06: pain in distribution of deep peroneal nerve, change to Lyrica and sponge MLA with met and RLD Referred to [facility] in 07-07 Basali to manage pain meds as of 11-06 - Persistent disorder of initiating or maintaining sleep - Personal history of malignant neoplasm of bladder 08/29/2009 - 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 - Rotator cuff (capsule) sprain 11/20/2010 - Shoulder pain 05/09/2009 - Status post bariatric surgery - Thoracic or lumbosacral neuritis or radiculitis, unspecified - Unspecified hypothyroidism - Unspecified sleep apnea ALLERGIES Allergen Reactions - Effexor [Venlafaxin* Intolerance headaches - Anticholinergics - * cogentin - Cogentin [Benztropi* Body went rigid - Codiene [Other] chest pain - Keflex [Cephalexin] Intolerance makes pt too drowsy - Phenothiazines compazine-1 sided facial weakness (like stroke) - Roxicet [Oxycodone-* Itching - Dex Rachelle [Other] Medrol dose pack: hallucinatios, diff walking PAST SURGICAL HISTORY Procedure Laterality Date - APPENDECTOMY 1983 - COLONOSCOP W/ OR W/O [facility] SPEC [place] 2006 Colonoscopy - COLONOSCOP W/ OR W/O [facility] SPEC 04/10/06 Colonoscopy/ [place] - COLONOSCOP W/ OR W/O [facility] SPEC 12/01/2013 Colonoscopy - CYSTOSCOPY 2010 left stent placement - CYSTOSCOPY removal of bladder lesion- malignant. - EGD W/O [facility] SPECIMEN W/BX 03/08/08 - EGD W/O OR W/BRUSH/WASH 11/21/2009 EGD - EGD W/O OR W/BRUSH/WASH 12/01/2013 EGD - EGD W/O OR W/BRUSH/WASH 03/28/15 EGD out pt [facility] - KNEE SCOPE,DIAGNOSTIC Arthroscopy, knee right - PAST SURGICAL HISTORY OF adhesions, partial sigmoid resection, bladder lift - PAST SURGICAL HISTORY OF 2005 left Hammertoe correction right 2nd and 3rd toes - PAST SURGICAL HISTORY OF 1992 Left shoulder surgery - PAST SURGICAL HISTORY OF 09/07 left shoulder - PAST SURGICAL HISTORY OF 12-10-10 Bariatric, with hernia repair. - PAST SURGICAL HISTORY OF 1983 oophrectomy - RECONSTRUCT PROX HUMERAL IMPLANT 2006 Arthroplasty, shoulder right - REMOVAL GALLBLADDER 1980 Cholecystectomy - TOTAL ABDOM HYSTERECTOMY 1982 Hysterectomy, LUIS FAMILY HISTORY Problem Relation Age of Onset - Stroke Mother - Heart Mother - Hypertension Mother - Diabetes Mother - GI Mother colitis - Alzheimer's Disease Father - Heart Father Bypass - Breast Cancer Paternal Aunt - Breast Cancer Paternal Grandmother - GI Sister colitis Current Outpatient Prescriptions: methocarbamol (ROBAXIN) 750 mg tablet Take 1 tablet by mouth three times daily. PRN spasms and pain Zolpidem (AMBIEN CR) 12.5 mg CR tablet Take 1 tablet by mouth at bedtime as needed for Sedation (generic acceptable) for up to 7 days. Zolpidem (AMBIEN CR) 12.5 mg CR tablet Take 1 tablet by mouth at bedtime as needed for Sedation (generic acceptable) for up to 180 days. lamoTRIgine (LAMICTAL) 100 mg tablet Take 1 tablet by mouth twice daily. BUTRANS 10 mcg/hour Apply 1 Patch as directed every Friday for 12 days. (Dr. Lance) fluticasone (FLONASE) 50 mcg/actuation nasal spray Use 2 Sprays in each nostril once daily. Rinse mouth after use. ARIPiprazole (ABILIFY) 5 mg tablet Take 2 tablets by mouth once daily. zoledronic acid (RECLAST) 5 mg/100 mL pgbk PREMIX piggyback Inject 100 mL intravenously every year. modafinil (PROVIGIL) 100 mg tablet Take 1 tablet by mouth as needed. traZODone (DESYREL) 100 mg tablet Take 3 tablets by mouth daily at bedtime. cholecalciferol, Vitamin D3, (VITAMIN D3) 50,000 unit cap capsule Take 1 capsule by mouth once each week. levothyroxine (SYNTHROID) 50 mcg tablet Take one tablet by mouth once daily, and 1/2 tablet on Sundays. CPAP Mask (per patient preference) optional chin strap (if indicated), filters, tubing / heated tubing, heated humidity and lifetime supplies. Dx. JUVENAL G47.33 327.23 CPAP AutoSV EPAP min= 12 cmH2O, PS min-max = [id number], Max pressure = 25 cmH2O, Rate =Auto, lifetime supplies, Dx: G47.33, G47.37 diclofenac sodium (VOLTAREN) 1 % topical gel Apply 2 g to affected area four times daily. >IV - Start IV START IV APREMILAST (OTEZLA ORAL) Take 1 tablet by mouth twice daily. DOCUSATE CALCIUM (STOOL SOFTENER ORAL) Take 1 tablet by mouth twice daily. oxybutynin XL (DITROPAN XL) 10 mg 24 hr tablet Take 10 mg by mouth once daily. ASCORBIC ACID (VITAMIN C ORAL) Take 1 tablet by mouth once daily. Biotin 10,000 mcg cap Take by mouth twice daily. Coenzyme Q10 200 mg cap Take 200 mg by mouth twice daily. HYDROcodone-acetaminophen 5-325 mg per tablet Take 1 tablet by mouth every 8 hours as needed. pregabalin 150 mg capsule Take 1 capsule by mouth once daily. Dr Lance (Patient taking differently: Take 150 mg by mouth twice daily. Dr Lance) MAGNESIUM OXIDE/MAG AA CHELATE (MAGNESIUM ORAL) Take 1 tablet by mouth twice daily. LACTOBACILLUS RHAMNOSUS GG (PROBIOTIC ORAL) Take 1 capsule by mouth daily at bedtime. Cyanocobalamin (VITAMIN B-12) 1,000 mcg ORAL Lozg Take 1,000 mcg by mouth once daily. FE PS CMPLX/ASCORBIC ACID (IRON PS COMPLEX-ASCORBIC ACID ORAL) Take 1 tablet by mouth daily at bedtime. LIDOCAINE 5 % (700 MG/PATCH) ADHESIVE PATCH Apply one patch to each hip daily. Remove patch after 12 hours. as needed MULTIVITAMIN TAB daily vitamin b complex(B COMPLEX TAB) Take one(1) tablet daily. No current facility-administered medications for this visit. REVIEW OF SYSTEMS GENERAL: Fatigue MUSCULOSKELETAL: See history of present illness REVIEW OF SYSTEMS: July 14, 2017 CONSTITUTIONAL: Fever: No Fatigue: Yes Pain: No EYES: Pain: No Redness: No Loss of vision: No Dryness: No EAR, NOSE, MOUTH, THROAT: Nose bleeds: No Hearing loss: No Sores in mouth: No Swallowing problems: No Dry mouth: Yes CARDIOVASCULAR: Chest pain: No Swelling in the feet or legs: No RESPIRATORY: Shortness of breath: No Pain with breathing: No Chronic cough: No Coughing up blood: No , GASTROINTESTINAL: Heartburn: No Nausea: No Diarrhea: No Blood in the stool or black stool: No Abdominal pain: No GENITOURINARY: Blood in urine: No Pain or burning on urination: No] MUSCULOSKELETAL: Joint pain: Yes Joint swelling: No Morning stiffness in joints: Yes Muscle weakness: Yes Back pain: Yes SKIN: Rashes: No Sun sensitive rashes: No Color changes of hands or feet in the cold: No Hair loss: No Nail changes: No NEUROLOGICAL: Headaches: Yes Dizziness: No Numbness or tingling: No Memory loss: Yes Seizures: No HEMATOLOGIC/LYMPHATIC: Swollen glands: No Anemia: No ALLERGIES/IMMUNOLOGIC: Allergies (other than medications): No Increased susceptibility to infection: No KNOWN MEDICAL CONDITIONS: Diabetes: No Thyroid disease: Yes High blood pressure: No RAPID 3: DISEASE ACTIVITY: Weighed Score Levels: 0 - 1: Near Remission 1.3 - 2.0: Low Severity 2.3 - 4.0: Moderate Severity 4.3 - 10.0: High Severity RAPID-3 Weighed Score 07/14/2017 RAPID 3 Weighed Score 4.3 HISTORY OF PRESENT ILLNESS: Ms. Romo presents with left shoulder pain. Opinions and recommendations in this consultation will be transmitted back to the referring and/or primary care physician by Epic notes or mail Related past history: The patient is a 67-year-old [id number] woman with a long history of left shoulder pain. She has had 3 previous rotator cuff operations. She notes that at last procedure there is some difficulty obtaining fixation. Most recent treatment has been with an injection which provided benefit, although she does not know how long. She also has significant history of spinal complaints, including in the cervical, thoracic, and lumbar regions. She's had a spine clinic consultation here area She sees a manufacturing engineer paint at home and has spinal injections. She also takes pain medications. She must do activities with the left arm with a humerus fixed at the side. She can only sleep on the right side, and with a pillow propping up her left arm. The pain is diffuse about the shoulder but primarily lateral. PHYSICAL EXAMINATION: 67 year old year old female Ht 152.4 cm (5') Wt 47.2 kg (104 lb) BMI 20.31 kg/m2 She seen with her . She is currently and rises easily. Gait is intact. Cervical spine motion is limited in all planes without radiating pain. Examination left shoulder shows multiple healed incisions. Active and passive elevation of both 150?. Rotation is relatively well preserved. There is pain and slight weakness resisted external rotation, forward flexion and abduction. There is subacromial crepitation with range of motion. There is no instability. There is no winging. Imaging: X-rays of the left shoulder show posterior surgical changes with elevation of the humeral head and degenerative changes. I personally reviewed the images Impression: #1: Chronic rotator cuff tear left shoulder #2: Spinal pain, including cervicalgia Plan: I discussed the above findings with Ms. Romo. We had a long discussion regarding the etiology and various treatment options. After considering these she wants to proceed as follows: Per her request left shoulder subacromial injection was performed. Proposed risks versus benefits of local anesthetic and steroid injection were discussed in detail. Ms. Romo understood these and elected to proceed with the injection. The risk, benefits and alternatives of injection and no injection therapy were discussed. The patient consented for an injection. The patient has been identified by name and birthdate. The injection site was identified and marked and prepped. Time out was completed. PROCEDURE NOTE: The left shoulder was prepped with betadine. Using sterile technique the subacromial space was injected with 2cc of 0.5% Marcaine plain and 1 cc of Depomedrol (40mg/cc). The injection site was then dressed with a bandaid. The patient tolerated the injection well. The patient was instructed to monitor their blood sugars if diabetic and call if any concerns. The patient was instructed to call the office if any adverse local effects occurred or any if any questions or concerns arise. I asked her to call or email with her response in 2 or 3 weeks. She asked if her manufacturing engineer paint at home could give the injections so she can avoid the trip. I gave her the appropriate information and he may certainly do that if he feels comfortable. If not, she'll follow up here as needed. Appropriate telephone or visit follow up was discussed. All questions were answered. Follow up: No Follow-up on file. CC: PCP Raul Gomez MD July 14, 2017 11:34 AM CNOV Observed: 07/14/2017 Status: COMPLETED Source: [place] 11:00 AM [facility] [place] [facility] Office Visit (ARTHMN) CLARISSAFRANNIE ANDREWS ([id number]) 1950 F KARLENE Date Time Provider Department 07/14/17 11:00 AM RAUL GMOEZ During your visit today, we recorded the following information about you: Weight Height 47.2 kg 1.524 m Raul Gomez MD 07/14/2017 12:30 PM Signed Voice recognition was used for this dictation. It may contain errors in spelling or syntax. July 14, 2017 Frannie Romo Patient presents with: left shoulder pain PAIN EVALUATION 07/14/2017 Pain Score: 3 Pain Location: Shoulder-Left Description: Aching Duration Amount of Time: - yrs Duration Units: Years Frequency: Continuous Intervention: Medication injections PAST MEDICAL HISTORY Diagnosis Date - Abdominal pain, unspecified site 02/28/2008 Reportedly had sigmoid resetion for adhesions about age 37: mutiple surgeries for adhesions, endometriosis, etc Camelia, LUIS (no comment on ovaries), cliff in sigmoid area by CT in 04-06 [facility] (Colorectal surgery) 12-05: prob small midline, incis hernia, did not rec repeat EGD/Colon/Surg-ANDquot;more adhesionsANDquot; WBC 5.8 K, HCT 43% in 01-04 Int hems ligated in 01-04 per [facility] - Abnormal glucose tolerance test 01/16/2012 - Abnormality of gait 05/01/2011 - Acute gastritis without mention of hemorrhage 11/21/2009 - Benign paroxysmal positional vertigo 06/10/2011 - Calculus of kidney - Cancer ([facility]) - Cervicalgia - Colon polyp, hyperplastic May 2006 - Depression - Depressive disorder, not elsewhere classified - Disorder of bone and cartilage, unspecified - Disorders of bursae and tendons in shoulder region, unspecified 02/28/2008 Arthroscopic R rotator cuff and biceps tendon repair 05-08-[address] Karthik Bella at [facility] - Dysphagia prior esophageal dilations twice - Dysphagia - Dysphagia, unspecified(787.20) - Epilepsy ([facility]) 02/12/2012 - Esophageal reflux - Esophagitis, unspecified - Examination of participant in clinical trial 03/01/2010 IRB: [id number] Study Title: Pelvic floor Disorders in Bariatric Surgery Patients Visit: Baseline PI: Patricia Patel MD Supervisor Finishing Room/Pager:Mayra Mar RN # [phone] Patient seen for PFD research study (IRB 06- 184). Patient agreed to participate in the QOL survey portion of the trial. Patient completed baseline survey. SIG:Mayra Mar RN - Grief 11/20/2011 - Gum symptoms - History of bladder cancer - Insomnia - Malignant neoplasm of bladder, part unspecified 02/15/2008 Biopsy 11-04: non-invasive, low grade papillary carcinoma Cystosocpy 11-[address] David López in [place]: no tumors, stones or foreign bodies Urology rec Cystoscopy in 03-07 and then q 6 mo for 3 years then yearly Urology rec antibiotics in 08-06 for chronic cystitis after voided urine for cytology: may treat for 3-6 months - Microscopic hematuria 02/21/2010 - Nasal congestion 08/18/2013 - Nasal obstruction 08/31/2014 - Obesity, unspecified 11-07-09 stated BMI 38 ht: 61ANDquot; wt: 201 lbs - Obstructive sleep apnea [facility] - Other and unspecified disc disorder of thoracic region - Other and unspecified hyperlipidemia - Other pain disorders related to psychological factors 05/15/2011 - Pain in limb 06/09/2008 Pain reportedly started after a fall in the shower in 2007 Brown 05-09: rec Neurontin [place]er 06-06: pain in distribution of deep peroneal nerve, change to Lyrica and ANDquot;sponge MLA with met and RLDANDquot; Referred to [facility] in 07-07 Basali to manage pain meds as of 11-06 - Persistent disorder of initiating or maintaining sleep - Personal history of malignant neoplasm of bladder 08/29/2009 - 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 - Rotator cuff (capsule) sprain 11/20/2010 - Shoulder pain 05/09/2009 - Status post bariatric surgery - Thoracic or lumbosacral neuritis or radiculitis, unspecified - Unspecified hypothyroidism - Unspecified sleep apnea ALLERGIES Allergen Reactions - Effexor [Venlafaxin* Intolerance headaches - Anticholinergics - * cogentin - Cogentin [Benztropi* ANDquot;Body went rigidANDquot; - Codiene [Other] chest pain - Keflex [Cephalexin] Intolerance makes pt too drowsy - Phenothiazines compazine-1 sided facial weakness (like stroke) - Roxicet [Oxycodone-* Itching - Dex Rachelle [Other] Medrol dose pack: hallucinatios, diff walking PAST SURGICAL HISTORY Procedure Laterality Date - APPENDECTOMY 1983 - COLONOSCOP W/ OR W/O [facility] SPEC [place] 2006 Colonoscopy - COLONOSCOP W/ OR W/O [facility] SPEC 04/10/06 Colonoscopy/ [place] - COLONOSCOP W/ OR W/O [facility] SPEC 12/01/2013 Colonoscopy - CYSTOSCOPY 2010 left stent placement - CYSTOSCOPY removal of bladder lesion- malignant. - EGD W/O [facility] SPECIMEN W/BX 03/08/08 - EGD W/O OR W/BRUSH/WASH 11/21/2009 EGD - EGD W/O OR W/BRUSH/WASH 12/01/2013 EGD - EGD W/O OR W/BRUSH/WASH 03/28/15 EGD out pt [facility] - KNEE SCOPE,DIAGNOSTIC Arthroscopy, knee right - PAST SURGICAL HISTORY OF adhesions, partial sigmoid resection, bladder lift - PAST SURGICAL HISTORY OF 2005 left Hammertoe correction right 2nd and 3rd toes - PAST SURGICAL HISTORY OF 1992 Left shoulder surgery - PAST SURGICAL HISTORY OF 09/07 left shoulder - PAST SURGICAL HISTORY OF 03-09-10 Bariatric, with hernia repair. - PAST SURGICAL HISTORY OF 1983 oophrectomy - RECONSTRUCT PROX HUMERAL IMPLANT 2006 Arthroplasty, shoulder right - REMOVAL GALLBLADDER 1980 Cholecystectomy - TOTAL ABDOM HYSTERECTOMY 1982 Hysterectomy, [facility] FAMILY HISTORY Problem Relation Age of Onset - Stroke Mother - Heart Mother - Hypertension Mother - Diabetes Mother - GI Mother colitis - Alzheimer's Disease Father - Heart Father Bypass - Breast Cancer Paternal Aunt - Breast Cancer Paternal Grandmother - GI Sister colitis Current Outpatient Prescriptions: methocarbamol (ROBAXIN) 750 mg tablet Take 1 tablet by mouth three times daily. PRN spasms and pain Zolpidem (AMBIEN CR) 12.5 mg CR tablet Take 1 tablet by mouth at bedtime as needed for Sedation (generic acceptable) for up to 7 days. Zolpidem (AMBIEN CR) 12.5 mg CR tablet Take 1 tablet by mouth at bedtime as needed for Sedation (generic acceptable) for up to 180 days. lamoTRIgine (LAMICTAL) 100 mg tablet Take 1 tablet by mouth twice daily. BUTRANS 10 mcg/hour Apply 1 Patch as directed every Ricardo for 12 days. (Dr. Lance) fluticasone (FLONASE) 50 mcg/actuation nasal spray Use 2 Sprays in each nostril once daily. Rinse mouth after use. ARIPiprazole (ABILIFY) 5 mg tablet Take 2 tablets by mouth once daily. zoledronic acid (RECLAST) 5 mg/100 mL pgbk PREMIX piggyback Inject 100 mL intravenously every year. modafinil (PROVIGIL) 100 mg tablet Take 1 tablet by mouth as needed. traZODone (DESYREL) 100 mg tablet Take 3 tablets by mouth daily at bedtime. cholecalciferol, Vitamin D3, (VITAMIN D3) 50,000 unit cap capsule Take 1 capsule by mouth once each week. levothyroxine (SYNTHROID) 50 mcg tablet Take one tablet by mouth once daily, and 1/2 tablet on Sundays. CPAP Mask (per patient preference) optional chin strap (if indicated), filters, tubing / heated tubing, heated humidity and lifetime supplies. Dx. JUVENAL G47.33 327.23 CPAP AutoSV EPAP min= 12 cmH2O, PS min-max = [id number], Max pressure = 25 cmH2O, Rate =Auto, lifetime supplies, Dx: G47.33, G47.37 diclofenac sodium (VOLTAREN) 1 % topical gel Apply 2 g to affected area four times daily. ANDgt;IV - Start IV START IV APREMILAST (OTEZLA ORAL) Take 1 tablet by mouth twice daily. DOCUSATE CALCIUM (STOOL SOFTENER ORAL) Take 1 tablet by mouth twice daily. oxybutynin XL (DITROPAN XL) 10 mg 24 hr tablet Take 10 mg by mouth once daily. ASCORBIC ACID (VITAMIN C ORAL) Take 1 tablet by mouth once daily. Biotin 10,000 mcg cap Take by mouth twice daily. Coenzyme Q10 200 mg cap Take 200 mg by mouth twice daily. HYDROcodone-acetaminophen 5-325 mg per tablet Take 1 tablet by mouth every 8 hours as needed. pregabalin 150 mg capsule Take 1 capsule by mouth once daily. Dr Lance (Patient taking differently: Take 150 mg by mouth twice daily. Dr Lance) MAGNESIUM OXIDE/MAG AA CHELATE (MAGNESIUM ORAL) Take 1 tablet by mouth twice daily. LACTOBACILLUS RHAMNOSUS GG (PROBIOTIC ORAL) Take 1 capsule by mouth daily at bedtime. Cyanocobalamin (VITAMIN B-12) 1,000 mcg ORAL Lozg Take 1,000 mcg by mouth once daily. FE PS CMPLX/ASCORBIC ACID (IRON PS COMPLEX-ASCORBIC ACID ORAL) Take 1 tablet by mouth daily at bedtime. LIDOCAINE 5 % (700 MG/PATCH) ADHESIVE PATCH Apply one patch to each hip daily. Remove patch after 12 hours. as needed MULTIVITAMIN TAB daily vitamin b complex(B COMPLEX TAB) Take one(1) tablet daily. No current facility-administered medications for this visit. REVIEW OF SYSTEMS GENERAL: Fatigue MUSCULOSKELETAL: See history of present illness REVIEW OF SYSTEMS: July 14, 2017 CONSTITUTIONAL: Fever: No Fatigue: Yes Pain: No EYES: Pain: No Redness: No Loss of vision: No Dryness: No EAR, NOSE, MOUTH, THROAT: Nose bleeds: No Hearing loss: No Sores in mouth: No Swallowing problems: No Dry mouth: Yes CARDIOVASCULAR: Chest pain: No Swelling in the feet or legs: No RESPIRATORY: Shortness of breath: No Pain with breathing: No Chronic cough: No Coughing up blood: No , GASTROINTESTINAL: Heartburn: No Nausea: No Diarrhea: No Blood in the stool or black stool: No Abdominal pain: No GENITOURINARY: Blood in urine: No Pain or burning on urination: No] MUSCULOSKELETAL: Joint pain: Yes Joint swelling: No Morning stiffness in joints: Yes Muscle weakness: Yes Back pain: Yes SKIN: Rashes: No Sun sensitive rashes: No Color changes of hands or feet in the cold: No Hair loss: No Nail changes: No NEUROLOGICAL: Headaches: Yes Dizziness: No Numbness or tingling: No Memory loss: Yes Seizures: No HEMATOLOGIC/LYMPHATIC: Swollen glands: No Anemia: No ALLERGIES/IMMUNOLOGIC: Allergies (other than medications): No Increased susceptibility to infection: No KNOWN MEDICAL CONDITIONS: Diabetes: No Thyroid disease: Yes High blood pressure: No RAPID 3: DISEASE ACTIVITY: Weighed Score Levels: 0 - 1: Near Remission 1.3 - 2.0: Low Severity 2.3 - 4.0: Moderate Severity 4.3 - 10.0: High Severity RAPID-3 Weighed Score 07/14/2017 RAPID 3 Weighed Score 4.3 HISTORY OF PRESENT ILLNESS: Ms. Romo presents with left shoulder pain. Opinions and recommendations in this consultation will be transmitted back to the referring and/or primary care physician by Epic notes or mail Related past history: The patient is a 67-year-old [id number] woman with a long history of left shoulder pain. She has had 3 previous rotator cuff operations. She notes that at last procedure there is some difficulty obtaining fixation. Most recent treatment has been with an injection which provided benefit, although she does not know how long. She also has significant history of spinal complaints, including in the cervical, thoracic, and lumbar regions. She's had a spine clinic consultation here area She sees a manufacturing engineer paint at home and has spinal injections. She also takes pain medications. She must do activities with the left arm with a humerus fixed at the side. She can only sleep on the right side, and with a pillow propping up her left arm. The pain is diffuse about the shoulder but primarily lateral. PHYSICAL EXAMINATION: 67 year old year old female Ht 152.4 cm (5') Wt 47.2 kg (104 lb) BMI 20.31 kg/m2 She seen with her . She is currently and rises easily. Gait is intact. Cervical spine motion is limited in all planes without radiating pain. Examination left shoulder shows multiple healed incisions. Active and passive elevation of both 150?. Rotation is relatively well preserved. There is pain and slight weakness resisted external rotation, forward flexion and abduction. There is subacromial crepitation with range of motion. There is no instability. There is no winging. Imaging: X-rays of the left shoulder show posterior surgical changes with elevation of the humeral head and degenerative changes. I personally reviewed the images Impression: #1: Chronic rotator cuff tear left shoulder #2: Spinal pain, including cervicalgia Plan: I discussed the above findings with Ms. Romo. We had a long discussion regarding the etiology and various treatment options. After considering these she wants to proceed as follows: Per her request left shoulder subacromial injection was performed. Proposed risks versus benefits of local anesthetic and steroid injection were discussed in detail. Ms. oRmo understood these and elected to proceed with the injection. The risk, benefits and alternatives of injection and no injection therapy were discussed. The patient consented for an injection. The patient has been identified by name and birthdate. The injection site was identified and marked and prepped. Time out was completed. PROCEDURE NOTE: The left shoulder was prepped with betadine. Using sterile technique the subacromial space was injected with 2cc of 0.5% Marcaine plain and 1 cc of Depomedrol (40mg/cc). The injection site was then dressed with a bandaid. The patient tolerated the injection well. The patient was instructed to monitor their blood sugars if diabetic and call if any concerns. The patient was instructed to call the office if any adverse local effects occurred or any if any questions or concerns arise. I asked her to call or email with her response in 2 or 3 weeks. She asked if her manufacturing engineer paint at home could give the injections so she can avoid the trip. I gave her the appropriate information and he may certainly do that if he feels comfortable. If not, she'll follow up here as needed. Appropriate telephone or visit follow up was discussed. All questions were answered. Follow up: No Follow-up on file. CC: PCP Raul Gomez MD July 14, 2017 11:34 AM Raul Gomez MD 07/14/2017 11:57 AM Signed Lateral subacromial space injection with 40mg depomedrol, 2cc Marcaine Call or email with progress in 2-3 weeks Referring Provider: LADY FELDMAN [[id number]] Allergies As of Date: 07/14/2017 Noted Allergy Reaction EFFEXOR (VENLAFAXINE HCL) 01/01/2010 5 - Intolerance Comments: headaches ANTICHOLINERGICS - QUATERNARY 01/04/2003 Comments: amy REYES (BENZTROPINE MESYLATE) 03/16/2008 Comments: Body went rigid Codiene [Other] 01/04/2003 Comments: chest pain KEFLEX (CEPHALEXIN) 12/18/2011 5 - Intolerance Comments: makes pt too drowsy PHENOTHIAZINES 01/04/2003 Comments: compazine-1 sided facial weakness (like stroke) ROXICET (OXYCODONE-ACETAMINOPHEN) 03/15/2010 9 - Itching dex rachelle [Other] 03/16/2008 Comments: Medrol dose pack: hallucinatios, diff walking Date Reviewed: 07/14/2017 Reviewed by: Raul Gomez - Fully Assessed Reason for Visit: left shoulder pain [Other] Primary Visit Diagnosis:Rotator cuff arthropathy, left [M12.812] Other Visit Diagnosis:DDD (degenerative disc disease), cervical [M50.30] Prescriptions as of 07/14/2017 Sig: METHOCARBAMOL 750 MG TABLET Take 1 tablet by mouth three * ZOLPIDEM ER 12.5 MG TABLET,EX* Take 1 tablet by mouth at bed* ZOLPIDEM ER 12.5 MG TABLET,EX* Take 1 tablet by mouth at bed* LAMOTRIGINE 100 MG TABLET Take 1 tablet by mouth twice * BUTRANS 10 MCG/HOUR TRANSDERM* Apply 1 Patch as directed jose alfredo* FLUTICASONE 50 MCG/ACTUATION * Use 2 Sprays in each nostril * ARIPIPRAZOLE 5 MG TABLET Take 2 tablets by mouth once * ZOLEDRONIC ACID 5 MG/100 ML I* Inject 100 mL intravenously e* MODAFINIL 100 MG TABLET Take 1 tablet by mouth as nee* TRAZODONE 100 MG TABLET Take 3 tablets by mouth daily* CHOLECALCIFEROL (VITAMIN D3) * Take 1 capsule by mouth once * LEVOTHYROXINE 50 MCG TABLET Take one tablet by mouth once* CPAP Mask (per patient preference)* CPAP AutoSV EPAP min= 12 cmH2O, PS* DICLOFENAC 1 % TOPICAL GEL Apply 2 g to affected area fo* COMPOUNDED PRESCRIPTION START IV OTEZLA ORAL Take 1 tablet by mouth twice * STOOL SOFTENER ORAL Take 1 tablet by mouth twice * OXYBUTYNIN CHLORIDE ER 10 MG * Take 10 mg by mouth once vashti* VITAMIN C ORAL Take 1 tablet by mouth once d* BIOTIN 10,000 MCG CAPSULE Take by mouth twice daily. COENZYME Q10 200 MG CAPSULE Take 200 mg by mouth twice da* HYDROCODONE 5 MG-ACETAMINOPHE* Take 1 tablet by mouth every * PREGABALIN 150 MG CAPSULE Take 1 capsule by mouth once * Patient taking differently: Take 150 mg by mouth twice da* MAGNESIUM ORAL Take 1 tablet by mouth twice * PROBIOTIC ORAL Take 1 capsule by mouth daily* CYANOCOBALAMIN (VIT B-12) 1,0* Take 1,000 mcg by mouth once * IRON PS COMPLEX-ASCORBIC ACID* Take 1 tablet by mouth daily * LIDOCAINE 5 % TOPICAL PATCH Apply one patch to each hip d* MULTIVITAMIN TABLET daily B COMPLEX TABLET,EXTENDED REL* Take one(1) tablet daily. More... More... Problem List As Of Date 07/14/2017 Noted Resolved Obesity, unspecified [E66.9] INVALID FOR*09/18/2012 More... More... Depressive disorder, not elsewhere classified [*INVALID FOR*10/21/2012 More... Mixed hyperlipidemia [E78.2] INVALID FOR* More... BONE AND CARTILAGE DIS NOS [M89.9, M94.9] INVALID FOR* More... Hypothyroidism [E03.9] INVALID FOR* More... Unspecified sleep apnea [G47.30] INVALID FOR*06/20/2014 More... More... Radiculopathy, lumbar region [M54.16] INVALID FOR* More... More... DISC DIS NEC/NOS-THORAC [M51.9] INVALID FOR* More... CERVICALGIA [M54.2] INVALID FOR* More... More... More... Vitamin D deficiency [E55.9] INVALID FOR* More... More... Insomnia [G47.00] 04/13/2014 Chronic insomnia [F51.04] INVALID FOR*04/13/2014 Class: Chronic More... 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 Obstructive Sleep apnea - AHI 48 [G47.33] INVALID FOR* More... Osteoporosis, unspecified [M81.0] INVALID FOR*08/09/2014 Osteoporosis [M81.0] INVALID FOR* More... Central sleep apnea in conditions classified el*INVALID FOR* DDD (degenerative disc disease), cervical [M50.*INVALID FOR* DDD (degenerative disc disease), lumbar [M51.36]INVALID FOR* Chronic pain [G89.29] INVALID FOR* Memory deficits [R41.3] INVALID FOR* Onychomycosis [B35.1] INVALID FOR* More... Psoriatic arthritis (HCC) [L40.50] INVALID FOR* Rotator cuff arthropathy, left [M12.812] INVALID FOR* Cervical radiculopathy [M54.12] INVALID FOR* Chronic bilateral low back pain with bilateral *INVALID FOR* Other instructions from your clinician: Lateral subacromial space injection with 40mg depomedrol, 2cc Marcaine Call or email with progress in 2-3 weeks Disposition: Return if symptoms worsen or fail to improve. Follow-up and Disposition History Recorded Encounter Status:Closed by RAUL GOMEZ MD on 07/14/17 PROGRESS Observed: 07/10/2017 Status: COMPLETED Source: [place] 1:00 PM [facility] REPOSITORY HNO ID: [id number] Author: Angelique (Pt) Barbie Service: (none) Author Type: Physical Therapist Type: Progress Notes Filed: 07/10/2017 1:08 PM Note Text: Episode Visit Count: 1 Therapist That Will Oversee The Plan Of Care: Angelique Valentin PT Start of Care Date: 07/09/17 Onset Date: 07/10/07 Plan of Care Certification Date: 07/09/17 Patient Identified by Name and Date of : Yes REHABILITATION AND SPORTS THERAPY PHYSICAL THERAPY EVALUATION PLAN OF CARE: Assessment: Frannie Romo presents with the diagnosis of chronic bilateral low back pain with bilateral sciatica. She presents with impairments of lumbar ROM and core strength. Patient is skeptical that PT can help her as she believes her abdomen muscles have been cut and PT will not be beneficial. Assured her that she could benefit from strengthening of her muscles as not all of her muscles could be cut. She may benefit from skilled therapy services to improve impairments to allow her to lie on her sides, run sweeper, and garden. Low Back Pain Subgroup Classification Low Back Pain Subgroup Classification: Core stabilization subgroup: recommended visits 10. Core Stabilization Subgroup Classification based on: pain with transitional movements Prognosis: Fair Fair due to: clinical presentation;chronic nature of impairments;coping skills Goals for Episode of Care: created on 07/09/17 through 09/18/17 [place] in home exercise program. Patient will decrease pain rating by 2 points to meet minimal clinical important difference for numeric pain rating scale. (Goal: for Best=3/10 and Worst=7/10) Patient will increase active ROM of lumbar spine to Minimal limitation to allow pt to improved performance of ADLs. Patient will increase strength of core to at least 4/5 to allow for perform ADLs. Patient will report being able to lie on her sides. Demonstrate improvement on functional score: Patient will improve his/her AM-PAC T-scale score by 4 points to indicate a Minimal Clinical Important Difference. (Goal: 61.75) G CODE REPORTING Based on clinical assessment and the score on the AM-PAC Scale Score Assessment Tool, the G code and corresponding severity modifiers are documented below. Evaluation: 07/10/2017 Current Status: Mobility: Walking and Moving Around: G8978 CJ 20-39% impaired Goal Status: Mobility: Walking and Moving Around: G8979 CJ 20-39% impaired Planned Interventions, Frequency, and Duration: Current Frequency: 2x/week Duration: 4 weeks Total Number of Visits Planned: 9 Patient to be see for Planned Treatment Interventions: Therapeutic exercise;Neuromuscular re-education;Manual therapy;Therapeutic activities;Self-fpc management;Patient/Family/Caregiver Education;Functional training;General Conditioning;Body Mechanics Training PLAN FOR NEXT VISIT: con't core strengthening in netural spine Patient demonstrates fair understanding of plan of care and treatment. The above goals and plan of care were discussed and agreed upon by patient/family. SUBJECTIVE: Frannie Romo is a 67 year old female seen today for low back pain that radiates into the sides of hips R>L. Has had numerous surgeries in her stomach (i.e. infertility, intestines, bariatric surgery). Patient states, I am not sure if I have any muscles to strengthen due to all of my stomach surgeries. Has to sleep on sides due to using a CPAP machine. Having L shoulder pain and is getting injections to prolong surgery. Gets injections in neck, mid back, and low back by Dr. Fernandez every three months and rotates injection locations. Functional Limitations: (lying on sides, running sweeper, gardening, twisting) Patient Goals: to relieve low back and hip pain Intake Information: Prescription present Red Flags Vertebral Fracture Red Flags: Female Vertebral Fracture Clinical Reasoning: No identified risk factors Abdominal Aortic Aneurysm Clinical Reasoning: No identified risk factors. Cancer Clinical Reasoning: No identified risk factors. Infection Clinical Reasoning: No identified risk factors. Cauda Equina Syndrome Clinical Reasoning: No identified risk factors. Red Flags - Cervical Cancer Clinical Reasoning: No identified risk factors. Infection Clinical Reasoning: No identified risk factors. Pain Score: 5/10 (Worst: 9+/10) Pain Location: Back (B hips.) Description: Aching Frequency: Continuous Post Treatment Pain Score: No Change OBJECTIVE MEASURES WITH LEVEL OF FUNCTION: Posture / Alignment Posture: Forward head (Neck shifted to the L, winging scapula) Spine Palpation R Thoracic Spine Palpation Tenderness: (T9-T12) L Thoracic Spine Palpation Tenderness: (T9-T12) R Lumbar Spine Palpation Tenderness: Greater trochanter;R Lumbar Spine Palpation Tenderness L Lumbar Spine Palpation Tenderness: L Lumbar Spine Palpation Tenderness;Greater trochanter Sensation - Lumbar Sensation: Grossly Intact Lumbar Spine AROM Lumbar Flexion: Normal (Pain through entire motion with catching on the way up) Lumbar Extension: Normal (described the pain worse with this motion ) Lumbar R Side-Bend: Moderate limitation Lumbar L Side-Bend: Normal Lumbar R Rotation: Minimal limitation Lumbar L Rotation: Normal Repeated Test Movements - Lumbar RFIL - Symptoms During: increases RFIL - Symptoms After: worse (L>R of the low back ) LE Strength Trunk Strength: 3/5 via bridging R LE Strength: 5/5 L LE Strength: 5/5 Special Tests - Hip and Spine Hip and Spine Special Tests: FADER Test;SLR Test FADER Test: Right Positive;Left Negative SLR Test: Left Negative;Right Negative Education: Education Learning Preferences: Demonstration;Explanation;Performance;Printed Materials Barriers: Emotions;Desire and Motivation Learning/educational needs: Plan of Care;Home exercise program Education Provided: Yes, see treatment interventions for education provided Education Provided To: Patient Education Mode/Type: Demonstration;Explanation/Discussion;Literature/Printed Materials;Performance Response to Education/Teach Back: States/Identifies TREATMENT: Evaluation Therapeutic Exercise: 1: Education that will keep patient performing exercises in a neutral spine due to ANTEROLISTHESIS and because she did not respond favorably to flexion. Used model of a spine to provide demonstration 2: *Posterior Pevlic x10, 5 sec hold. 3: *Transverse abodminal bracing in hooklying x10 (got pains in stomach that went away once stopped.) Skilled Intervention: Patient was educated in proper exercise technique and purpose for exercises. Reviewed and educated patient on additions/changes for home exercise program as above (*) Skilled judgment was provided in selection of appropriate interventions. Provided written instruction for home exercise program to facilitate proper performance and compliance. Correct performance of therapeutic exercises was facilitated with verbal, visual and tactile cuing. Patient education as noted. Billing: [facility]: Evaluation - Moderate Complexity (62791) Therapeutic Exercise (90139): 1:1 time: 23 minutes (2 units: 23-37 mins) Total time: 45 minutes Angelique Valentin PT CNTHERAPY Observed: 07/09/2017 Status: COMPLETED Source: [place] 4:15 PM [facility] [place] REPOSITORY OT/PT/Speech Visit (PTWS) FRANNIE ROMO ([id number]) 1950 F [place] Date Time Provider Department 07/09/17 4:15 PM ANGELIQUE VALENTIN (PT) PTWS Date Time Provider Department Center 07/09/2017 4:15 PM [id number], DIANA (PT)PTWS [facility] Reason for Visit: PT Eval [747] Patient Education [91] Primary Visit Diagnosis:Chronic bilateral low back pain with bilateral sciatica [M54.42, M54.41, G89.29] Allergies As of Date: 07/09/2017 Noted Allergy Reaction EFFEXOR (VENLAFAXINE HCL) 01/01/2010 5 - Intolerance Comments: headaches ANTICHOLINERGICS - QUATERNARY 01/04/2003 Comments: amy REYES (BENZTROPINE MESYLATE) 03/16/2008 Comments: Body went rigid Codiene [Other] 01/04/2003 Comments: chest pain KEFLEX (CEPHALEXIN) 12/18/2011 5 - Intolerance Comments: makes pt too drowsy PHENOTHIAZINES 01/04/2003 Comments: compazine-1 sided facial weakness (like stroke) ROXICET (OXYCODONE-ACETAMINOPHEN) 03/15/2010 9 - Itching dex rachelle [Other] 03/16/2008 Comments: Medrol dose pack: hallucinatios, diff walking Date Reviewed: 07/08/2017 Reviewed by: Nano Perdomo Ma - Fully Assessed Prescriptions as of 07/09/2017 Sig: METHOCARBAMOL 750 MG TABLET Take 1 tablet by mouth three * ZOLPIDEM ER 12.5 MG TABLET,EX* Take 1 tablet by mouth at bed* ZOLPIDEM ER 12.5 MG TABLET,EX* Take 1 tablet by mouth at bed* LAMOTRIGINE 100 MG TABLET Take 1 tablet by mouth twice * BUTRANS 10 MCG/HOUR TRANSDERM* Apply 1 Patch as directed jose alfredo* FLUTICASONE 50 MCG/ACTUATION * Use 2 Sprays in each nostril * ARIPIPRAZOLE 5 MG TABLET Take 2 tablets by mouth once * ZOLEDRONIC ACID 5 MG/100 ML I* Inject 100 mL intravenously e* MODAFINIL 100 MG TABLET Take 1 tablet by mouth as nee* TRAZODONE 100 MG TABLET Take 3 tablets by mouth daily* CHOLECALCIFEROL (VITAMIN D3) * Take 1 capsule by mouth once * LEVOTHYROXINE 50 MCG TABLET Take one tablet by mouth once* CPAP Mask (per patient preference)* CPAP AutoSV EPAP min= 12 cmH2O, PS* DICLOFENAC 1 % TOPICAL GEL Apply 2 g to affected area fo* COMPOUNDED PRESCRIPTION START IV OTEZLA ORAL Take 1 tablet by mouth twice * STOOL SOFTENER ORAL Take 1 tablet by mouth twice * OXYBUTYNIN CHLORIDE ER 10 MG * Take 10 mg by mouth once vashti* VITAMIN C ORAL Take 1 tablet by mouth once d* BIOTIN 10,000 MCG CAPSULE Take by mouth twice daily. COENZYME Q10 200 MG CAPSULE Take 200 mg by mouth twice da* HYDROCODONE 5 MG-ACETAMINOPHE* Take 1 tablet by mouth every * PREGABALIN 150 MG CAPSULE Take 1 capsule by mouth once * Patient taking differently: Take 150 mg by mouth twice da* MAGNESIUM ORAL Take 1 tablet by mouth twice * PROBIOTIC ORAL Take 1 capsule by mouth daily* CYANOCOBALAMIN (VIT B-12) 1,0* Take 1,000 mcg by mouth once * IRON PS COMPLEX-ASCORBIC ACID* Take 1 tablet by mouth daily * LIDOCAINE 5 % TOPICAL PATCH Apply one patch to each hip d* MULTIVITAMIN TABLET daily B COMPLEX TABLET,EXTENDED REL* Take one(1) tablet daily. Progress Notes: Angelique Valentin PT 07/10/2017 1:08 PM Signed Episode Visit Count: 1 Therapist That Will Oversee The Plan Of Care: Angelique Valentin PT Start of Care Date: 07/09/17 Onset Date: 07/10/07 Plan of Care Certification Date: 07/09/17 Patient Identified by Name and Date of : Yes REHABILITATION AND SPORTS THERAPY PHYSICAL THERAPY EVALUATION PLAN OF CARE: Assessment: Frannie Romo presents with the diagnosis of chronic bilateral low back pain with bilateral sciatica. She presents with impairments of lumbar ROM and core strength. Patient is skeptical that PT can help her as she believes her abdomen muscles have been cut and PT will not be beneficial. Assured her that she could benefit from strengthening of her muscles as not all of her muscles could be cut. She may benefit from skilled therapy services to improve impairments to allow her to lie on her sides, run sweeper, and garden. Low Back Pain Subgroup Classification Low Back Pain Subgroup Classification: Core stabilization subgroup: recommended visits 10. Core Stabilization Subgroup Classification based on: pain with transitional movements Prognosis: Fair Fair due to: clinical presentation;chronic nature of impairments;coping skills Goals for Episode of Care: created on 07/09/17 through 09/18/17 [place] in home exercise program. Patient will decrease pain rating by 2 points to meet minimal clinical important difference for numeric pain rating scale. (Goal: for Best=3/10 and Worst=7/10) Patient will increase active ROM of lumbar spine to Minimal limitation to allow pt to improved performance of ADLs. Patient will increase strength of core to at least 4/5 to allow for perform ADLs. Patient will report being able to lie on her sides. Demonstrate improvement on functional score: Patient will improve his/her AM-PAC T-scale score by 4 points to indicate a Minimal Clinical Important Difference. (Goal: 61.75) G CODE REPORTING Based on clinical assessment and the score on the AM-PAC Scale Score Assessment Tool, the G code and corresponding severity modifiers are documented below. Evaluation: 07/10/2017 Current Status: Mobility: Walking and Moving Around: G8978 20-39% impaired Goal Status: Mobility: Walking and Moving Around: G8979 20-39% impaired Planned Interventions, Frequency, and Duration: Current Frequency: 2x/week Duration: 4 weeks Total Number of Visits Planned: 9 Patient to be see for Planned Treatment Interventions: Therapeutic exercise;Neuromuscular re-education;Manual therapy;Therapeutic activities;Self-fpc management;Patient/Family/Caregiver Education;Functional training;General Conditioning;Body Mechanics Training PLAN FOR NEXT VISIT: con't core strengthening in netural spine Patient demonstrates fair understanding of plan of care and treatment. The above goals and plan of care were discussed and agreed upon by patient/family. SUBJECTIVE: Frannie Romo is a 67 year old female seen today for low back pain that radiates into the sides of hips R>L. Has had numerous surgeries in her stomach (i.e. infertility, intestines, bariatric surgery). Patient states, I am not sure if I have any muscles to strengthen due to all of my stomach surgeries. Has to sleep on sides due to using a CPAP machine. Having L shoulder pain and is getting injections to prolong surgery. Gets injections in neck, mid back, and low back by Dr. Fernandez every three months and rotates injection locations. Functional Limitations: (lying on sides, running sweeper, gardening, twisting) Patient Goals: to relieve low back and hip pain Intake Information: Prescription present Red Flags Vertebral Fracture Red Flags: Female Vertebral Fracture Clinical Reasoning: No identified risk factors Abdominal Aortic Aneurysm Clinical Reasoning: No identified risk factors. Cancer Clinical Reasoning: No identified risk factors. Infection Clinical Reasoning: No identified risk factors. Cauda Equina Syndrome Clinical Reasoning: No identified risk factors. Red Flags - Cervical Cancer Clinical Reasoning: No identified risk factors. Infection Clinical Reasoning: No identified risk factors. Pain Score: 5/10 (Worst: 9+/10) Pain Location: Back (B hips.) Description: Aching Frequency: Continuous Post Treatment Pain Score: No Change OBJECTIVE MEASURES WITH LEVEL OF FUNCTION: Posture / Alignment Posture: Forward head (Neck shifted to the L, winging scapula) Spine Palpation R Thoracic Spine Palpation Tenderness: (T9-T12) L Thoracic Spine Palpation Tenderness: (T9-T12) R Lumbar Spine Palpation Tenderness: Greater trochanter;R Lumbar Spine Palpation Tenderness L Lumbar Spine Palpation Tenderness: L Lumbar Spine Palpation Tenderness;Greater trochanter Sensation - Lumbar Sensation: Grossly Intact Lumbar Spine AROM Lumbar Flexion: Normal (Pain through entire motion with catching on the way up) Lumbar Extension: Normal (described the pain worse with this motion ) Lumbar R Side-Bend: Moderate limitation Lumbar L Side-Bend: Normal Lumbar R Rotation: Minimal limitation Lumbar L Rotation: Normal Repeated Test Movements - Lumbar RFIL - Symptoms During: increases RFIL - Symptoms After: worse (L>R of the low back ) LE Strength Trunk Strength: 3/5 via bridging R LE Strength: 5/5 L LE Strength: 5/5 Special Tests - Hip and Spine Hip and Spine Special Tests: FADER Test;SLR Test FADER Test: Right Positive;Left Negative SLR Test: Left Negative;Right Negative Education: Education Learning Preferences: Demonstration;Explanation;Performance;Printed Materials Barriers: Emotions;Desire and Motivation Learning/educational needs: Plan of Care;Home exercise program Education Provided: Yes, see treatment interventions for education provided Education Provided To: Patient Education Mode/Type: Demonstration;Explanation/Discussion;Literature/Printed Materials;Performance Response to Education/Teach Back: States/Identifies TREATMENT: Evaluation Therapeutic Exercise: 1: Education that will keep patient performing exercises in a neutral spine due to ANTEROLISTHESIS and because she did not respond favorably to flexion. Used model of a spine to provide demonstration 2: *Posterior Pevlic x10, 5 sec hold. 3: *Transverse abodminal bracing in hooklying x10 (got pains in stomach that went away once stopped.) Skilled Intervention: Patient was educated in proper exercise technique and purpose for exercises. Reviewed and educated patient on additions/changes for home exercise program as above (*) Skilled judgment was provided in selection of appropriate interventions. Provided written instruction for home exercise program to facilitate proper performance and compliance. Correct performance of therapeutic exercises was facilitated with verbal, visual and tactile cuing. Patient education as noted. Billing: [facility]: Evaluation - Moderate Complexity (00823) Therapeutic Exercise (86920): 1:1 time: 23 minutes (2 units: 23-37 mins) Total time: 45 minutes Angelique Valentin PT CRISTI Observed: 07/08/2017 Status: COMPLETED Source: [place] 2:40 PM [facility] [place] REPOSITORY Office Visit (SPNSMN) FRANNIE ROMO ([id number]) 1950 F [place] Date Time Provider Department 07/08/17 2:40 PM CAROL CONDE SPNSMN During your visit today, we recorded the following information about you: Pulse Blood pressure Weight Height 59/minute 90/54 48.1 kg 1.524 m Carol Conde MD 07/14/2017 5:36 PM Signed SPINE SURGERY ESTABLISHED DATE OF SERVICE: 07/08/2017 DATE OF LAST VISIT: 05/13/2017 SUBJECTIVE: HPI:Frannie Romo is a 67 year old female presenting with spouse. Patient presents today for follow up. She is still experiencing some mid and lower back pain with intermittent radiation into the legs. She feels like her legs at times are weak and she experiences fatigue with walking. She feels like the right leg may be slightly worse then left. She can not trace a path that the pain radiates but she feels like the pain is in her ANDquot;hipANDquot; and comes into the anterior thighs. She describes a numb sensation in her hips exacerbated by sleeping on her side. She feels like she is off balance when walking but she's felt like this for the past couple of years and does not feel like it has progressed. She denies bowel and bladder dysfunction and saddle anesthesia. She has seen an orthopedist who told her that he thinks her right hip pain is caused by her spine. She has had injections in the past. She uses [place] and tylenol for pain control. She has not done PT for the leg and back pain. PAIN EVALUATION 07/08/2017 Pain Score: 6 Pain Location: - neck to the tail bone Description: Aching;Throbbing Duration Units: Years Frequency: Continuous Intervention: Medication Pain Radiation: Low back to anterior thigh Aggravating Factors: Movement Alleviating Factors: None PREVIOUS CONSERVATIVE TREATMENTS: Injections - type unknown AMBULATORY STATUS: Impaired Community Distances REVIEW OF SYSTEMS: GENERAL: No weight loss or malaise MUSCULOSKELETAL: Negative for joint pain, swelling or muscle pain NEURO: No history of headaches, syncope, paralysis, seizures or tremors MEDICATIONS: Zolpidem (AMBIEN CR) 12.5 mg CR tablet Take 1 tablet by mouth at bedtime as needed for Sedation (generic acceptable) for up to 7 days. Zolpidem (AMBIEN CR) 12.5 mg CR tablet Take 1 tablet by mouth at bedtime as needed for Sedation (generic acceptable) for up to 180 days. lamoTRIgine (LAMICTAL) 100 mg tablet Take 1 tablet by mouth twice daily. BUTRANS 10 mcg/hour Apply 1 Patch as directed every Friday for 12 days. (Dr. Lance) fluticasone (FLONASE) 50 mcg/actuation nasal spray Use 2 Sprays in each nostril once daily. Rinse mouth after use. ARIPiprazole (ABILIFY) 5 mg tablet Take 2 tablets by mouth once daily. zoledronic acid (RECLAST) 5 mg/100 mL pgbk PREMIX piggyback Inject 100 mL intravenously every year. modafinil (PROVIGIL) 100 mg tablet Take 1 tablet by mouth as needed. traZODone (DESYREL) 100 mg tablet Take 3 tablets by mouth daily at bedtime. cholecalciferol, Vitamin D3, (VITAMIN D3) 50,000 unit cap capsule Take 1 capsule by mouth once each week. levothyroxine (SYNTHROID) 50 mcg tablet Take one tablet by mouth once daily, and 1/2 tablet on Sundays. CPAP Mask (per patient preference) optional chin strap (if indicated), filters, tubing / heated tubing, heated humidity and lifetime supplies. Dx. JUVENAL G47.33 327.23 CPAP AutoSV EPAP min= 12 cmH2O, PS min-max = [id number], Max pressure = 25 cmH2O, Rate =Auto, lifetime supplies, Dx: G47.33, G47.37 diclofenac sodium (VOLTAREN) 1 % topical gel Apply 2 g to affected area four times daily. ANDgt;IV - Start IV START IV APREMILAST (OTEZLA ORAL) Take 1 tablet by mouth twice daily. DOCUSATE CALCIUM (STOOL SOFTENER ORAL) Take 1 tablet by mouth twice daily. oxybutynin XL (DITROPAN XL) 10 mg 24 hr tablet Take 10 mg by mouth once daily. ASCORBIC ACID (VITAMIN C ORAL) Take 1 tablet by mouth once daily. Biotin 10,000 mcg cap Take by mouth twice daily. Coenzyme Q10 200 mg cap Take 200 mg by mouth twice daily. HYDROcodone-acetaminophen 5-325 mg per tablet Take 1 tablet by mouth every 8 hours as needed. pregabalin 150 mg capsule Take 1 capsule by mouth once daily. Dr Lance MAGNESIUM OXIDE/MAG AA CHELATE (MAGNESIUM ORAL) Take 1 tablet by mouth twice daily. LACTOBACILLUS RHAMNOSUS GG (PROBIOTIC ORAL) Take 1 capsule by mouth daily at bedtime. FE PS CMPLX/ASCORBIC ACID (IRON PS COMPLEX-ASCORBIC ACID ORAL) Take 1 tablet by mouth daily at bedtime. LIDOCAINE 5 % (700 MG/PATCH) ADHESIVE PATCH Apply one patch to each hip daily. Remove patch after 12 hours. as needed MULTIVITAMIN TAB daily vitamin b complex(B COMPLEX TAB) Take one(1) tablet daily. Cyanocobalamin (VITAMIN B-12) 1,000 mcg ORAL Lozg Take 1,000 mcg by mouth once daily. OBJECTIVE: PHYSICAL EXAM: BP 90/54 Pulse 59 Ht 5' 0ANDquot; (1.52m) Wt 106 lb (48.1kg) BMI 20.70 kg/(m2). GENERAL APPEARANCE: Well nourished, well developed, and no apparent distress. NEURO PSYCH: Patient oriented to person, place, and time. Mood pleasant. Benign affect.? CARDIOVASCULAR: Palpable pulses. No edema noted. No varicosities. SKIN: Head, neck, trunk, and extremities dry, intact and without lesions. LYMPHATICS: No palpable nodes in cervical or axillae areas. Groin exam deferred. MUSCULOSKELETAL ?VISUAL INSPECTION ?CERVICAL:?WNL ?THORACIC: WNL ?LUMBAR: WNL ?PALPATION: ?SPINOUS PROCESS: No pain. ?PARASPINALS: No pain. MUSCLE BULK: Normal and symmetrical in the upper ANDamp; lower extremities. MUSCLE TONE: Normal. MOTOR: 5/5 in all muscle groups.? SENSORY: Normal sensory exam GAIT: Normal.? REFLEXES:?+2 to bilateral U/L extremities. PROPRIOCEPTION:?Normal. LONG TRACT SIGNS: No clonus. No Hoffmans. STRAIGHT LEG TEST: Ipsilateral: Negative. Contralateral: Negative. L'HERMITTES SIGN: Negative on the right. Negative on the left. SPURLING'S TEST: Negative on the right. Negative on the left. Right SI joint pain. NEURO TESTS: None DATA REVIEW:Diagnostic tests reviewed for today's visit, films/specimens were personally reviewed by me: [facility] records reviewed Moderate lumbar spondylosis most significantly at L3-4 where there is anterolisthesis ASSESSMENT/PLAN (M54.5, G89.29) Chronic midline low back pain without sciatica (primary encounter diagnosis) (M43.10) Acquired spondylolisthesis Frannie Romo has a condition that requires further workup. Patient following up regarding low back pain that radiates into REGINALDO anterior thighs. CORINAgt;Lorena. She has not tried muscle relaxants or PT for back or leg pain. On exam has pain with palpation over the greater trochanter REGINALDO. Patient is agreeable with trying muscle relaxant, REGINALDO hip injections and physical therapy. If she does not experience relief we will try right L3-4 transforaminal injection. 1. Consults: Medical Spine Intervention Right and left greater trochanter steroid injection 2. Follow up: 2 months Staff note: 1. The patient was seen and independently examined, I have repeated both the history and physical examination as well as spent time in discussion and career guidance counselor with the patient. I agree with the above as documented by the physician museum assistant. I had a long discussion with the patient in the office today, they had many appropriate questions, all were answered to their satisfaction, no guarantees were offer nor implied in our discussion. 2. Patient with 2.3 and 3.4 spondylolisthesis, patient has mostly pain with palpation of the greater trochanters bilaterally, would favor trying to treat with physical therapy, muscle relaxants, and injections into the trochanteric bursa, should these fail to provide sustained relief would consider transforaminal block and/or intervention from a surgical standpoint but this will not be her first step here. All questions answered to the stated satisfaction. Carol Conde MD SIGNATURE: Carol Conde MD PATIENT NAME: Frannie Romo DATE: July 08, 2017 TIME: 12:43 PM PAGER: Referring Provider: SELF [[id number]] Allergies As of Date: 07/08/2017 Noted Allergy Reaction EFFEXOR (VENLAFAXINE HCL) 01/01/2010 5 - Intolerance Comments: headaches ANTICHOLINERGICS - QUATERNARY 01/04/2003 Comments: [place] COGENTIN (BENZTROPINE MESYLATE) 03/16/2008 Comments: Body went rigid Codiene [Other] 01/04/2003 Comments: chest pain KEFLEX (CEPHALEXIN) 12/18/2011 5 - Intolerance Comments: makes pt too drowsy PHENOTHIAZINES 01/04/2003 Comments: compazine-1 sided facial weakness (like stroke) ROXICET (OXYCODONE-ACETAMINOPHEN) 03/15/2010 9 - Itching dex rachelle [Other] 03/16/2008 Comments: Medrol dose pack: manoj mayorga walking Date Reviewed: 07/08/2017 Reviewed by: Nano Perdomo Ma - Fully Assessed Reason for Visit: Established Patient [175] Cmt: Hip Pain Primary Visit Diagnosis:Chronic midline low back pain without sciatica [M54.5, G89.29] Other Visit Diagnosis:Acquired spondylolisthesis [M43.10] Order(s):methocarbamol (ROBAXIN) 750 mg tabletTake 1 tablet by mouth three times daily. PRN spasms and painDisp: 50 tabletRfl: 0 CONSULT TO PHYSICAL THERAPY [9032] Order #: [id number]: 1 CONSULT TO SPINE INTERVENTION [8320770] Order #: [id number]: 1 Prescriptions as of 07/08/2017 Sig: ZOLPIDEM ER 12.5 MG TABLET,EX* Take 1 tablet by mouth at bed* ZOLPIDEM ER 12.5 MG TABLET,EX* Take 1 tablet by mouth at bed* LAMOTRIGINE 100 MG TABLET Take 1 tablet by mouth twice * BUTRANS 10 MCG/HOUR TRANSDERM* Apply 1 Patch as directed jose alfredo* FLUTICASONE 50 MCG/ACTUATION * Use 2 Sprays in each nostril * ARIPIPRAZOLE 5 MG TABLET Take 2 tablets by mouth once * ZOLEDRONIC ACID 5 MG/100 ML I* Inject 100 mL intravenously e* MODAFINIL 100 MG TABLET Take 1 tablet by mouth as nee* TRAZODONE 100 MG TABLET Take 3 tablets by mouth daily* CHOLECALCIFEROL (VITAMIN D3) * Take 1 capsule by mouth once * LEVOTHYROXINE 50 MCG TABLET Take one tablet by mouth once* CPAP Mask (per patient preference)* CPAP AutoSV EPAP min= 12 cmH2O, PS* DICLOFENAC 1 % TOPICAL GEL Apply 2 g to affected area fo* COMPOUNDED PRESCRIPTION START IV OTEZLA ORAL Take 1 tablet by mouth twice * STOOL SOFTENER ORAL Take 1 tablet by mouth twice * OXYBUTYNIN CHLORIDE ER 10 MG * Take 10 mg by mouth once vashti* VITAMIN C ORAL Take 1 tablet by mouth once d* BIOTIN 10,000 MCG CAPSULE Take by mouth twice daily. COENZYME Q10 200 MG CAPSULE Take 200 mg by mouth twice da* HYDROCODONE 5 MG-ACETAMINOPHE* Take 1 tablet by mouth every * PREGABALIN 150 MG CAPSULE Take 1 capsule by mouth once * Patient taking differently: Take 150 mg by mouth twice da* MAGNESIUM ORAL Take 1 tablet by mouth twice * PROBIOTIC ORAL Take 1 capsule by mouth daily* IRON PS COMPLEX-ASCORBIC ACID* Take 1 tablet by mouth daily * LIDOCAINE 5 % TOPICAL PATCH Apply one patch to each hip d* MULTIVITAMIN TABLET daily B COMPLEX TABLET,EXTENDED REL* Take one(1) tablet daily. METHOCARBAMOL 750 MG TABLET Take 1 tablet by mouth three * CYANOCOBALAMIN (VIT B-12) 1,0* Take 1,000 mcg by mouth once * Medication notes this encounter CYANOCOBALAMIN (VIT B-12) 1,000 MCG LOZENGES >> Nano Perdomo Ma 07/08/2017 12:29 PM >> NANO PERDOMO MA Jul 08, 2017 12:29 PM Not using More... More... Problem List As Of Date 07/08/2017 Noted Resolved Obesity, unspecified [E66.9] INVALID FOR*09/18/2012 More... More... Depressive disorder, not elsewhere classified [*INVALID FOR*10/21/2012 More... Mixed hyperlipidemia [E78.2] INVALID FOR* More... BONE AND CARTILAGE DIS NOS [M89.9, M94.9] INVALID FOR* More... Hypothyroidism [E03.9] INVALID FOR* More... Unspecified sleep apnea [G47.30] INVALID FOR*06/20/2014 More... More... Radiculopathy, lumbar region [M54.16] INVALID FOR* More... More... DISC DIS NEC/NOS-THORAC [M51.9] INVALID FOR* More... CERVICALGIA [M54.2] INVALID FOR* More... More... More... Vitamin D deficiency [E55.9] INVALID FOR* More... More... Insomnia [G47.00] 04/13/2014 Chronic insomnia [F51.04] INVALID FOR*04/13/2014 Class: Chronic More... 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 Obstructive Sleep apnea - AHI 48 [G47.33] INVALID FOR* More... Osteoporosis, unspecified [M81.0] INVALID FOR*08/09/2014 Osteoporosis [M81.0] INVALID FOR* More... Central sleep apnea in conditions classified el*INVALID FOR* DDD (degenerative disc disease), cervical [M50.*INVALID FOR* DDD (degenerative disc disease), lumbar [M51.36]INVALID FOR* Chronic pain [G89.29] INVALID FOR* Memory deficits [R41.3] INVALID FOR* Onychomycosis [B35.1] INVALID FOR* More... Psoriatic arthritis (HCC) [L40.50] INVALID FOR* Rotator cuff arthropathy, left [M12.812] INVALID FOR* Cervical radiculopathy [M54.12] INVALID FOR* Prescriptions ordered this encounter Disp Refills Start End METHOCARBAMOL 750 MG TABLET 50 t* 0 07/08/2017 Route: ORAL Sig: Take 1 tablet by mouth three times daily. PRN spasms and pain Level of Service: EST PATIENT VISIT LEVEL 3 [[id number]] Disposition: Return in about 4 weeks (around 08/05/2017). Follow-up and Disposition History Recorded Encounter Status:Closed by CAROL CONDE MD on 07/14/17 PROGRESS Observed: 07/08/2017 Status: COMPLETED Source: [place] 12:43 PM [facility] RE[facility]ITORY HNO ID: [id number] Author: Carol Conde Service: (none) Author Type: Physician Type: Progress Notes Filed: 07/14/2017 5:36 PM Note Text: SPINE SURGERY ESTABLISHED DATE OF SERVICE: 07/08/2017 DATE OF LAST VISIT: 05/13/2017 SUBJECTIVE: HPI:Frannie Romo is a 67 year old female presenting with spouse. Patient presents today for follow up. She is still experiencing some mid and lower back pain with intermittent radiation into the legs. She feels like her legs at times are weak and she experiences fatigue with walking. She feels like the right leg may be slightly worse then left. She can not trace a path that the pain radiates but she feels like the pain is in her hip and comes into the anterior thighs. She describes a numb sensation in her hips exacerbated by sleeping on her side. She feels like she is off balance when walking but she's felt like this for the past couple of years and does not feel like it has progressed. She denies bowel and bladder dysfunction and saddle anesthesia. She has seen an orthopedist who told her that he thinks her right hip pain is caused by her spine. She has had injections in the past. She uses [place] and tylenol for pain control. She has not done PT for the leg and back pain. PAIN EVALUATION 07/08/2017 Pain Score: 6 Pain Location: - neck to the tail bone Description: Aching;Throbbing Duration Units: Years Frequency: Continuous Intervention: Medication Pain Radiation: Low back to anterior thigh Aggravating Factors: Movement Alleviating Factors: None PREVIOUS CONSERVATIVE TREATMENTS: Injections - type unknown AMBULATORY STATUS: Impaired Community Distances REVIEW OF SYSTEMS: GENERAL: No weight loss or malaise MUSCULOSKELETAL: Negative for joint pain, swelling or muscle pain NEURO: No history of headaches, syncope, paralysis, seizures or tremors MEDICATIONS: Zolpidem (AMBIEN CR) 12.5 mg CR tablet Take 1 tablet by mouth at bedtime as needed for Sedation (generic acceptable) for up to 7 days. Zolpidem (AMBIEN CR) 12.5 mg CR tablet Take 1 tablet by mouth at bedtime as needed for Sedation (generic acceptable) for up to 180 days. lamoTRIgine (LAMICTAL) 100 mg tablet Take 1 tablet by mouth twice daily. BUTRANS 10 mcg/hour Apply 1 Patch as directed every Friday for 12 days. (Dr. Lance) fluticasone (FLONASE) 50 mcg/actuation nasal spray Use 2 Sprays in each nostril once daily. Rinse mouth after use. ARIPiprazole (ABILIFY) 5 mg tablet Take 2 tablets by mouth once daily. zoledronic acid (RECLAST) 5 mg/100 mL pgbk PREMIX piggyback Inject 100 mL intravenously every year. modafinil (PROVIGIL) 100 mg tablet Take 1 tablet by mouth as needed. traZODone (DESYREL) 100 mg tablet Take 3 tablets by mouth daily at bedtime. cholecalciferol, Vitamin D3, (VITAMIN D3) 50,000 unit cap capsule Take 1 capsule by mouth once each week. levothyroxine (SYNTHROID) 50 mcg tablet Take one tablet by mouth once daily, and 1/2 tablet on Sundays. CPAP Mask (per patient preference) optional chin strap (if indicated), filters, tubing / heated tubing, heated humidity and lifetime supplies. Dx. JUVENAL G47.33 327.23 CPAP AutoSV EPAP min= 12 cmH2O, PS min-max = [id number], Max pressure = 25 cmH2O, Rate =Auto, lifetime supplies, Dx: G47.33, G47.37 diclofenac sodium (VOLTAREN) 1 % topical gel Apply 2 g to affected area four times daily. >IV - Start IV START IV APREMILAST (OTEZLA ORAL) Take 1 tablet by mouth twice daily. DOCUSATE CALCIUM (STOOL SOFTENER ORAL) Take 1 tablet by mouth twice daily. oxybutynin XL (DITROPAN XL) 10 mg 24 hr tablet Take 10 mg by mouth once daily. ASCORBIC ACID (VITAMIN C ORAL) Take 1 tablet by mouth once daily. Biotin 10,000 mcg cap Take by mouth twice daily. Coenzyme Q10 200 mg cap Take 200 mg by mouth twice daily. HYDROcodone-acetaminophen 5-325 mg per tablet Take 1 tablet by mouth every 8 hours as needed. pregabalin 150 mg capsule Take 1 capsule by mouth once daily. Dr Lance MAGNESIUM OXIDE/MAG AA CHELATE (MAGNESIUM ORAL) Take 1 tablet by mouth twice daily. LACTOBACILLUS RHAMNOSUS GG (PROBIOTIC ORAL) Take 1 capsule by mouth daily at bedtime. FE PS CMPLX/ASCORBIC ACID (IRON PS COMPLEX-ASCORBIC ACID ORAL) Take 1 tablet by mouth daily at bedtime. LIDOCAINE 5 % (700 MG/PATCH) ADHESIVE PATCH Apply one patch to each hip daily. Remove patch after 12 hours. as needed MULTIVITAMIN TAB daily vitamin b complex(B COMPLEX TAB) Take one(1) tablet daily. Cyanocobalamin (VITAMIN B-12) 1,000 mcg ORAL Lozg Take 1,000 mcg by mouth once daily. OBJECTIVE: PHYSICAL EXAM: BP 90/54 Pulse 59 Ht 5' 0 (1.52m) Wt 106 lb (48.1kg) BMI 20.70 kg/(m2). GENERAL APPEARANCE: Well nourished, well developed, and no apparent distress. NEURO PSYCH: Patient oriented to person, place, and time. Mood pleasant. Benign affect.? CARDIOVASCULAR: Palpable pulses. No edema noted. No varicosities. SKIN: Head, neck, trunk, and extremities dry, intact and without lesions. LYMPHATICS: No palpable nodes in cervical or axillae areas. Groin exam deferred. MUSCULOSKELETAL ?VISUAL INSPECTION ?CERVICAL:?WNL ?THORACIC: WNL ?LUMBAR: WNL ?PALPATION: ?SPINOUS PROCESS: No pain. ?PARASPINALS: No pain. MUSCLE BULK: Normal and symmetrical in the upper AND lower extremities. MUSCLE TONE: Normal. MOTOR: 5/5 in all muscle groups.? SENSORY: Normal sensory exam GAIT: Normal.? REFLEXES:?+2 to bilateral U/L extremities. PROPRIOCEPTION:?Normal. LONG TRACT SIGNS: No clonus. No Hoffmans. STRAIGHT LEG TEST: Ipsilateral: Negative. Contralateral: Negative. L'HERMITTES SIGN: Negative on the right. Negative on the left. SPURLING'S TEST: Negative on the right. Negative on the left. Right SI joint pain. NEURO TESTS: None DATA REVIEW:Diagnostic tests reviewed for today's visit, films/specimens were personally reviewed by me: [facility] records reviewed Moderate lumbar spondylosis most significantly at L3-4 where there is anterolisthesis ASSESSMENT/PLAN (M54.5, G89.29) Chronic midline low back pain without sciatica (primary encounter diagnosis) (M43.10) Acquired spondylolisthesis Frannie Romo has a condition that requires further workup. Patient following up regarding low back pain that radiates into REGINALDO anterior thighs. R>L. She has not tried muscle relaxants or PT for back or leg pain. On exam has pain with palpation over the greater trochanter REGINALDO. Patient is agreeable with trying muscle relaxant, REGINALDO hip injections and physical therapy. If she does not experience relief we will try right L3-4 transforaminal injection. 1. Consults: Medical Spine Intervention Right and left greater trochanter steroid injection 2. Follow up: 2 months Staff note: 1. The patient was seen and independently examined, I have repeated both the history and physical examination as well as spent time in discussion and career guidance counselor with the patient. I agree with the above as documented by the physician museum assistant. I had a long discussion with the patient in the office today, they had many appropriate questions, all were answered to their satisfaction, no guarantees were offer nor implied in our discussion. 2. Patient with 2.3 and 3.4 spondylolisthesis, patient has mostly pain with palpation of the greater trochanters bilaterally, would favor trying to treat with physical therapy, muscle relaxants, and injections into the trochanteric bursa, should these fail to provide sustained relief would consider transforaminal block and/or intervention from a surgical standpoint but this will not be her first step here. All questions answered to the stated satisfaction. Carol Conde MD SIGNATURE: Carol Conde MD PATIENT NAME: Frannie Romo DATE: July 08, 2017 TIME: 12:43 PM PAGER: PROGRESS Observed: 05/29/2017 Status: COMPLETED Source: [place] 3:09 PM [facility] [place] RE[place] HNO ID: [id number] Author: Mariam Horan Service: (none) Author Type: (none) Type: Progress Notes Filed: 05/29/2017 3:10 PM Note Text: Radiology Service Progress Note PATIENT NAME: Frannie Romo DATE OF SERVICE: May 29, 2017 TIME: 3:09 PM PATIENT IDENTITY VERIFICATION COMPLETED USING TWO (2) METHODS: Patient confirmed name verbally and Date of . PATIENT GENDER DATA: Female. status: : No status: NO. PATIENT RELEVANT IMPLANT DATA REVIEWED: Yes RADIOLOGY DEPARTMENT: MR; Exam(s) Completed: Spine: Thoracic spine and Lumbar spine PERIPHERAL IV DATA: Not applicable SIGNED BY: Mariam Horan May 29, 2017 3:09 PM MRI THORACIC SPINE WO Observed: 05/29/2017 Status: F Source: [facility] 3:09 PM [facility] [place] RE[facility] * * *Final Report* * * DATE OF EXAM: May 29 2017 3:09PM [facility] 0325 - MRI THORACIC SPINE WO IVCON / PROCEDURE REASON: Radiculopathy, lumbar region * * * * Physician Interpretation * * * * EXAMINATION: MRI LUMBAR SPINE WO IVCON, MRI THORACIC SPINE WO IVCON HISTORY: Radiculopathy, lumbar region TECHNIQUE: Routine thoracic and lumbosacral spine MR protocol without gadolinium. MQ: [id number]_[id number] COMPARISON: None. RESULT: Counting reference: Lumbosacral junction. For the purposes of this report, L4-5 is considered the level of the iliac crest. Alignment: Mild accentuated thoracic kyphosis from anterior disc space loss. Mild degenerative type anterolisthesis L3 on L4. Bone marrow signal/fracture: Disc space edema is present anteriorly T4-5 C5-6 C7 at T7-8 compatible with type I degenerative endplate changes. No evidence of prior fracture. Thoracic cord and conus medullaris: Thoracic cord and conus medullaris maintain normal morphology and signal intensity and Paraspinal soft tissues: Small bilateral pleural effusions are present. thoracic spine: thoracic canal and foramina are patent. T12-L1: Canal and foramina are patent. L1-L2: Canal and foramina are patent. L2-L3: Moderate facet degenerative change and mild disc height loss. Canal is patent. Foramina are patent. L3-L4: Anterolisthesis of L3 on L4 with severe facet degenerative changes. There is bilateral facet edema from degenerative facet arthropathy. Small synovial facet cyst bilaterally extending into the paraspinal muscles canal narrowing. Mild overall canal narrowing and mild to moderate bilateral foraminal narrowing. L4-L5: Moderate degenerative disc changes and facet hypertrophy with mild circumferential disc bulging. Canal and foramina are patent. L5-S1: Moderate degenerative disc and facet changes with mild circumferential disc bulging. Canal and foramina remain patent. Sacrum and iliac wings: The visualized sacrum and iliac wings are within normal limits. IMPRESSION: Spondylosis in the upper thoracic spine with anterior disc height loss and type I anterior degenerative endplate changes in the body the report. Moderate lumbar spondylosis most significantly at L3-4 where there is anterolisthesis and degenerative facet arthropathy facet edema. No high-grade canal stenosis. Small bilateral pleural effusions. 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Livestock: MICHAEL Transcribe Date/Time: May 29 2017 3:13P Dictated by : NEENA CADET MD This examination was interpreted and the report reviewed and electronically signed by: NEENA CADET MD on May 29 2017 3:17PM EST [id number] MRI LUMBAR SPINE WO Observed: 05/29/2017 Status: F Source: [place] IVCON 3:09 PM [facility] REPOSITORY * * *Final Report* * * DATE OF EXAM: May 29 2017 3:09PM [facility] 0303 - MRI LUMBAR SPINE WO IVCON / PROCEDURE REASON: Radiculopathy, lumbar region * * * * Physician Interpretation * * * * EXAMINATION: MRI LUMBAR SPINE WO IVCON, MRI THORACIC SPINE WO IVCON HISTORY: Radiculopathy, lumbar region TECHNIQUE: Routine thoracic and lumbosacral spine MR protocol without gadolinium. MQ: [id number]_2 COMPARISON: None. RESULT: Counting reference: Lumbosacral junction. For the purposes of this report, L4-5 is considered the level of the iliac crest. Alignment: Mild accentuated thoracic kyphosis from anterior disc space loss. Mild degenerative type anterolisthesis L3 on L4. Bone marrow signal/fracture: Disc space edema is present anteriorly T4-5 C5-6 C7 at T7-8 compatible with type I degenerative endplate changes. No evidence of prior fracture. Thoracic cord and conus medullaris: Thoracic cord and conus medullaris maintain normal morphology and signal intensity and Paraspinal soft tissues: Small bilateral pleural effusions are present. thoracic spine: thoracic canal and foramina are patent. T12-L1: Canal and foramina are patent. L1-L2: Canal and foramina are patent. L2-L3: Moderate facet degenerative change and mild disc height loss. Canal is patent. Foramina are patent. L3-L4: Anterolisthesis of L3 on L4 with severe facet degenerative changes. There is bilateral facet edema from degenerative facet arthropathy. Small synovial facet cyst bilaterally extending into the paraspinal muscles canal narrowing. Mild overall canal narrowing and mild to moderate bilateral foraminal narrowing. L4-L5: Moderate degenerative disc changes and facet hypertrophy with mild circumferential disc bulging. Canal and foramina are patent. L5-S1: Moderate degenerative disc and facet changes with mild circumferential disc bulging. Canal and foramina remain patent. Sacrum and iliac wings: The visualized sacrum and iliac wings are within normal limits. IMPRESSION: Spondylosis in the upper thoracic spine with anterior disc height loss and type I anterior degenerative endplate changes in the body the report. Moderate lumbar spondylosis most significantly at L3-4 where there is anterolisthesis and degenerative facet arthropathy facet edema. No high-grade canal stenosis. Small bilateral pleural effusions. 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Livestock: MICHAEL Transcribe Date/Time: May 29 2017 3:13P Dictated by : NEENA CADET MD This examination was interpreted and the report reviewed and electronically signed by: NEENA CADET MD on May 29 2017 3:17PM EST [id number] XR LUMBAR 4V AP/LAT/ Observed: 05/29/2017 Status: F Source: [place] FLEX/EXT 1:04 PM [facility] [place] RE[place] * * *Final Report* * * DATE OF EXAM: May 29 2017 1:04PM [id number] [id number] - XR LUMBAR 4V AP/LAT/ FLEX/EXT / PROCEDURE REASON: Radiculopathy, lumbar region * * * * Physician Interpretation * * * * EXAM: LUMBAR SPINE, 4 VIEWS CLINICAL: 66-year-old female with radiculopathy TECHNIQUE: AP, lateral lateral flexion-extension COMPARISON: None RESULTS: Counting reference: The iliac crest level is considered L4.L5 or the first vertebrae proximal to the sacrum is considered L5. Prominent lumbar lordosis. Minimal anterolisthesis of L2 in relation L3 and approximately 5 mm grade 1 anterolisthesis of L3 in relation L4. Mild to moderate disc space during throughout the lumbar spine. Facet degenerative changes throughout the lumbar spine. Surgical clips in right upper quadrant. With flexion the anterolisthesis of L3 increases to 8.5 mm and reduces to 5 mm with extension. IMPRESSION: DEGENERATIVE DISC AND FACET DISEASE WITH GRADE 1 ANTEROLISTHESIS OF L3 IN RELATION TO L4 WHICH INCREASES 3 MM WITH FLEXION. 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Livestock: [facility] Transcribe Date/Time: May 29 2017 1:50P Dictated by : CHIN RAMON MD This examination was interpreted and the report reviewed and electronically signed by: CHIN RAMON MD on May 29 2017 1:54PM EST [id number] PROGRESS Observed: 05/29/2017 Status: COMPLETED Source: [place] 12:55 PM [facility] [place] RE[facility] HNO ID: [id number] Author: Clarisa Lopez (RtFaustino Cortez Service: (none) Author Type: Classification Clerk Type: Progress Notes Filed: 05/29/2017 1:03 PM Note Text: Radiology Service Progress Note PATIENT NAME: Frannie Romo DATE OF SERVICE: May 29, 2017 TIME: 12:55 PM PATIENT IDENTITY VERIFICATION COMPLETED USING TWO (2) METHODS: Patient confirmed name verbally and Date of . PATIENT GENDER DATA: Female. status: : No status: NO. PATIENT RELEVANT IMPLANT DATA REVIEWED: Not Applicable RADIOLOGY DEPARTMENT: General X-ray: Exam(s) Completed: Spine X-Ray(s): Lumbar AP / LAT / L5-S1 / FLEX-EXT PERIPHERAL IV DATA: Not applicable SIGNED BY: RT Josué May 29, 2017 12:55 PM PROGRESS Observed: 05/13/2017 Status: COMPLETED Source: [place] 2:30 PM [facility] REPOSITORY O ID: [id number] Author: Carol Conde Service: (none) Author Type: Physician Type: Progress Notes Filed: 05/27/2017 1:59 PM Note Text: SPINE SURGERY ESTABLISHED DATE OF SERVICE: 05/13/2017 DATE OF LAST VISIT: 01/15/2017 SUBJECTIVE: HPI:Frannie Romo is a 66 year old female presenting alone. Patient presents today for follow up. She has been experiencing some mid and lower back pain with intermittent radiation into the legs. She feels like her legs at times are weak and she experiences fatigue with walking. When leg is not worse then the other. She can not trace a path that the pain radiates. She denies any falls or issues with balance. She denies bowel and bladder dysfunction and saddle anesthesia. MEDICATIONS: BUTRANS 10 mcg/hour Apply 1 Patch as directed every Friday for 12 days. (Dr. Lance) fluticasone (FLONASE) 50 mcg/actuation nasal spray Use 2 Sprays in each nostril once daily. Rinse mouth after use. ARIPiprazole (ABILIFY) 5 mg tablet Take 2 tablets by mouth once daily. Zolpidem (AMBIEN CR) 12.5 mg CR tablet Take 1 tablet by mouth at bedtime as needed for Sedation (generic acceptable). [START ON 05/30/2017] zoledronic acid (RECLAST) 5 mg/100 mL pgbk PREMIX piggyback Inject 100 mL intravenously every year. modafinil (PROVIGIL) 100 mg tablet Take 1 tablet by mouth as needed. traZODone (DESYREL) 100 mg tablet Take 3 tablets by mouth daily at bedtime. cholecalciferol, Vitamin D3, (VITAMIN D3) 50,000 unit cap capsule Take 1 capsule by mouth once each week. levothyroxine (SYNTHROID) 50 mcg tablet Take one tablet by mouth once daily, and 1/2 tablet on Sundays. CPAP Mask (per patient preference) optional chin strap (if indicated), filters, tubing / heated tubing, heated humidity and lifetime supplies. Dx. JUVENAL G47.33 327.23 CPAP AutoSV EPAP min= 12 cmH2O, PS min-max = [id number], Max pressure = 25 cmH2O, Rate =Auto, lifetime supplies, Dx: G47.33, G47.37 diclofenac sodium (VOLTAREN) 1 % topical gel Apply 2 g to affected area four times daily. >IV - Start IV START IV APREMILAST (OTEZLA ORAL) Take 1 tablet by mouth twice daily. DOCUSATE CALCIUM (STOOL SOFTENER ORAL) Take 1 tablet by mouth twice daily. oxybutynin XL (DITROPAN XL) 10 mg 24 hr tablet Take 10 mg by mouth once daily. ASCORBIC ACID (VITAMIN C ORAL) Take 1 tablet by mouth once daily. Biotin 10,000 mcg cap Take by mouth twice daily. Coenzyme Q10 200 mg cap Take 200 mg by mouth twice daily. HYDROcodone-acetaminophen 5-325 mg per tablet Take 1 tablet by mouth every 8 hours as needed. pregabalin 150 mg capsule Take 1 capsule by mouth once daily. Dr Lance MAGNESIUM OXIDE/MAG AA CHELATE (MAGNESIUM ORAL) Take 1 tablet by mouth twice daily. LACTOBACILLUS RHAMNOSUS GG (PROBIOTIC ORAL) Take 1 capsule by mouth daily at bedtime. Cyanocobalamin (VITAMIN B-12) 1,000 mcg ORAL Lozg Take 1,000 mcg by mouth once daily. FE PS CMPLX/ASCORBIC ACID (IRON PS COMPLEX-ASCORBIC ACID ORAL) Take 1 tablet by mouth daily at bedtime. LIDOCAINE 5 % (700 MG/PATCH) ADHESIVE PATCH Apply one patch to each hip daily. Remove patch after 12 hours. as needed MULTIVITAMIN TAB daily vitamin b complex(B COMPLEX TAB) Take one(1) tablet daily. lamoTRIgine (LAMICTAL) 100 mg tablet Take 1 tablet by mouth twice daily. LORazepam (ATIVAN) 1 mg tablet Take one tablet by mouth 30 minutes prior to MRI. May repeat x one dose if necessary. (Please fill so able to take pill on the day of MRI--scheduled 05/28/17) Zolpidem (AMBIEN CR) 12.5 mg CR tablet Take 1 tablet by mouth at bedtime as needed for Sedation (generic acceptable) for up to 14 days. OBJECTIVE: PHYSICAL EXAM: BP 110/56 Pulse 57 Resp 18 Ht 5' 0 (1.52m) Wt 106 lb (48.1kg) BMI 20.70 kg/(m2). GENERAL APPEARANCE: Well nourished, well developed, and no apparent distress. NEURO PSYCH: Patient oriented to person, place, and time. Mood pleasant. Benign affect. CARDIOVASCULAR: Palpable pulses. No edema noted. No varicosities. SKIN: Head, neck, trunk, and extremities dry, intact and without lesions. LYMPHATICS: No palpable nodes in cervical or axillae areas. Groin exam deferred. MUSCULOSKELETAL VISUAL INSPECTION CERVICAL: WNL THORACIC: WNL LUMBAR: WNL PALPATION: SPINOUS PROCESS: No pain. PARASPINALS: No pain. MUSCLE BULK: Normal and symmetrical in the upper AND lower extremities. MUSCLE TONE: Normal. MOTOR: 5/5 in all muscle groups. SENSORY: Normal sensory exam GAIT: Normal. REFLEXES: +2 to bilateral U/L extremities. PROPRIOCEPTION: Normal. LONG TRACT SIGNS: No clonus. No Hoffmans. STRAIGHT LEG TEST: Ipsilateral: Negative. Contralateral: Negative. L'HERMITTES SIGN: Negative on the right. Negative on the left. SPURLING'S TEST: Negative on the right. Negative on the left. ASSESSMENT/PLAN (M54.16) Radiculopathy, lumbar region (primary encounter diagnosis) Frannie Romo has a condition that requires further workup. Patient presents with new symptoms of mid-low back pain and radiation REGINALDO into the lower extremities. She is experiencing subjective weakness in the legs and muscle fatigue with walking. 1. Imaging: Lumbar MRI Without Contrast and Thoracic MRI Without Contrast and Flex/Ext Lumbar X-Ray 2. Follow up: 4-6 weeks Staff note: 1. The patient was seen and independently examined, I have repeated both the history and physical examination as well as spent time in discussion and career guidance counselor with the patient. I agree with the above as documented by the physician museum assistant. I had a long discussion with the patient in the office today, they had many appropriate questions, all were answered to their satisfaction, no guarantees were offer nor implied in our discussion. 2. Will obtain the above mentioned imaging and reevaluate at next encounter. All questions answered to stated satisfaction. Carol Conde MD SIGNATURE: Carol Conde MD PATIENT NAME: Frannie Romo DATE: May 13, 2017 TIME: 2:30 PM PAGER: PROGRESS Observed: 05/06/2017 Status: COMPLETED Source: [place] 6:28 PM [facility] [place] REPOSITORY HNO ID: [id number] Author: Sun Bennett Service: (none) Author Type: Physician Type: Progress Notes Filed: 05/21/2017 12:34 AM Note Text: Patient presents with: 6 mo f/up SUBJECTIVE: Frannie Romo is a 66 year old year old lady here today for 6 month follow up appointment for review of medical conditions. Getting over flu bug and right ear infection with antibiotic. Hard to get protein Pressure behind eyes; some blurriness worse before takes pills then better after takes pills. Sometimes longer than 12 hours between doses. PAST MEDICAL HISTORY Diagnosis Date - Abdominal pain, unspecified site 02/28/2008 Reportedly had sigmoid resetion for adhesions about age 37: mutiple surgeries for adhesions, endometriosis, etc Camelia, LUIS (no comment on ovaries), cliff in sigmoid area by CT in 04-06 OJuan Pablo (Colorectal surgery) 12-05: prob small midline, incis hernia, did not rec repeat EGD/Colon/Surg-more adhesions WBC 5.8 K, HCT 43% in 01-04 Int hems ligated in 01-04 per [facility] - Abnormal glucose tolerance test 01/16/2012 - Abnormality of gait 05/01/2011 - Acute gastritis without mention of hemorrhage 11/21/2009 - Benign paroxysmal positional vertigo 06/10/2011 - Calculus of kidney - Cancer (HCC) - Cervicalgia - Colon polyp, hyperplastic May 2006 - Depression - Depressive disorder, not elsewhere classified - Disorder of bone and cartilage, unspecified - Disorders of bursae and tendons in shoulder region, unspecified 02/28/2008 Arthroscopic R rotator cuff and biceps tendon repair 05-08-[address] Karthik Bella at [facility] - Dysphagia prior esophageal dilations twice - Dysphagia - Dysphagia, unspecified(787.20) - Epilepsy (HCC) 02/12/2012 - Esophageal reflux - Esophagitis, unspecified - Examination of participant in clinical trial 03/01/2010 IRB: Study Title: Pelvic floor Disorders in Bariatric Surgery Patients Visit: Baseline PI: Patricia Patel MD Supervisor Finishing Room/Pager:Mayra Mar RN # [id number] Patient seen for PFD research study (IRB 03-123). Patient agreed to participate in the QOL survey portion of the trial. Patient completed baseline survey. SIG:Mayra Mar RN - Grief 11/20/2011 - Gum symptoms - History of bladder cancer - Insomnia - Malignant neoplasm of bladder, part unspecified 02/15/2008 Biopsy 11-04: non-invasive, low grade papillary carcinoma Cystosocpy 11-[address] David López in [place]: no tumors, stones or foreign bodies Urology rec Cystoscopy in 03-07 and then q 6 mo for 3 years then yearly Urology rec antibiotics in 08-06 for chronic cystitis after voided urine for cytology: may treat for 3-6 months - Microscopic hematuria 02/21/2010 - Nasal congestion 08/18/2013 - Nasal obstruction 08/31/2014 - Obesity, unspecified 11-07-09 stated BMI 38 ht: 61 wt: 201 lbs - Obstructive sleep apnea [facility] - Other and unspecified disc disorder of thoracic region - Other and unspecified hyperlipidemia - Other pain disorders related to psychological factors 05/15/2011 - Pain in limb 06/09/2008 Pain reportedly started after a fall in the shower in 2007 Junior 05-09: rec Neurontin Baller 06-06: pain in distribution of deep peroneal nerve, change to Lyrica and sponge MLA with met and RLD Referred to [facility] in 07-07 Basali to manage pain meds as of 11-06 - Persistent disorder of initiating or maintaining sleep - Personal history of malignant neoplasm of bladder 08/29/2009 - 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 Rinse mouth after use. Zolpidem (AMBIEN CR) 12.5 mg CR tablet Take 1 tablet by mouth at bedtime as needed for Sedation (generic acceptable) for up to 14 days. ARIPiprazole (ABILIFY) 5 mg tablet Take 2 tablets by mouth once daily. Zolpidem (AMBIEN CR) 12.5 mg CR tablet Take 1 tablet by mouth at bedtime as needed for Sedation (generic acceptable). [START ON 05/30/2017] zoledronic acid (RECLAST) 5 mg/100 mL pgbk PREMIX piggyback Inject 100 mL intravenously every year. modafinil (PROVIGIL) 100 mg tablet Take 1 tablet by mouth as needed. traZODone (DESYREL) 100 mg tablet Take 3 tablets by mouth daily at bedtime. lamoTRIgine (LAMICTAL) 100 mg tablet Take 1 tablet by mouth twice daily. BUTRANS 10 mcg/hour Apply 10 mcg as directed once each week. cholecalciferol, Vitamin D3, (VITAMIN D3) 50,000 unit cap capsule Take 1 capsule by mouth once each week. levothyroxine (SYNTHROID) 50 mcg tablet Take one tablet by mouth once daily, and 1/2 tablet on Sundays. CPAP Mask (per patient preference) optional chin strap (if indicated), filters, tubing / heated tubing, heated humidity and lifetime supplies. Dx. JUVENAL G47.33 327.23 CPAP AutoSV EPAP min= 12 cmH2O, PS min-max = 3-05tbH0U, Max pressure = 25 cmH2O, Rate =Auto, lifetime supplies, Dx: G47.33, G47.37 diclofenac sodium (VOLTAREN) 1 % topical gel Apply 2 g to affected area four times daily. >IV - Start IV START IV APREMILAST (OTEZLA ORAL) Take 1 tablet by mouth twice daily. DOCUSATE CALCIUM (STOOL SOFTENER ORAL) Take 1 tablet by mouth twice daily. oxybutynin XL (DITROPAN XL) 10 mg 24 hr tablet Take 10 mg by mouth once daily. ASCORBIC ACID (VITAMIN C ORAL) Take 1 tablet by mouth once daily. Biotin 10,000 mcg cap Take by mouth twice daily. Coenzyme Q10 200 mg cap Take 200 mg by mouth twice daily. HYDROcodone-acetaminophen 5-325 mg per tablet Take 1 tablet by mouth every 8 hours as needed. pregabalin 150 mg capsule Take 1 capsule by mouth once daily. Dr Lance (Patient taking differently: Take 150 mg by mouth twice daily. Dr Lance) MAGNESIUM OXIDE/MAG AA CHELATE (MAGNESIUM ORAL) Take 1 tablet by mouth twice daily. LACTOBACILLUS RHAMNOSUS GG (PROBIOTIC ORAL) Take 1 capsule by mouth daily at bedtime. Cyanocobalamin (VITAMIN B-12) 1,000 mcg ORAL Lozg Take 1,000 mcg by mouth once daily. FE PS CMPLX/ASCORBIC ACID (IRON PS COMPLEX-ASCORBIC ACID ORAL) Take 1 tablet by mouth daily at bedtime. LIDOCAINE 5 % (700 MG/PATCH) ADHESIVE PATCH Apply one patch to each hip daily. Remove patch after 12 hours. as needed MULTIVITAMIN TAB daily vitamin b complex(B COMPLEX TAB) Take one(1) tablet daily. No current facility-administered medications for this visit. OBJECTIVE: BP 108/66 (BP Site: Left Arm, BP Position: Sitting, BP Cuff Size: Regular Adult) Pulse (!) 56 Resp 8 Wt 49 kg (108 lb) BMI 21.09 kg/m2 Patient is alert, oriented times 3, no apparent distress, affect is bright, reactive. Heart: Regular rate, rhythm, no murmurs, gallops, rubs. Lungs: Clear to auscultation, bilaterally, breathing non labored. Ext: No cyanosis, clubbing, or edema. Component Latest Ref Rng AND Units 10/11/2016 10/11/2016 01/22/2017 02/06/2017 04/30/2017 12:24 PM 12:24 PM WBC 3.70 - 11.00 k/uL 5.52 5.04 6.71 5.21 RBC 3.90 - 5.20 m/uL 4.41 4.46 4.44 4.44 Hemoglobin 11.5 - 15.5 g/dL 14.0 13.9 14.1 13.9 Hematocrit 36.0 - 46.0 % 43.4 44.0 43.0 43.2 MCV 80.0 - 100.0 fL 98.4 98.7 96.8 97.3 MCH 26.0 - 34.0 pG 31.7 31.2 31.8 31.3 MCHC 30.5 - 36.0 g/dL 32.3 31.6 32.8 32.2 RDW-CV 11.5 - 15.0 % 12.5 12.4 12.2 12.9 Platelet Count 150 - 400 k/uL 268 227 279 228 MPV 9.0 - 12.7 fL 10.9 10.9 10.6 10.5 Neut% % 47.8 50.9 54.8 41.6 Abs Neut (ANC) 1.45 - 7.50 k/uL 2.64 2.55 3.68 2.17 Lymph% % 42.4 40.5 38.6 49.1 Abs Lymph 1.00 - 4.00 k/uL 2.34 2.04 2.59 2.56 Rogers% % 6.9 6.2 5.1 6.0 Abs Rogers <0.87 k/uL 0.38 0.31 0.34 0.31 Eosin% % 2.0 1.6 0.9 2.5 Abs Eosin <0.46 k/uL 0.11 0.08 0.06 0.13 Baso% % 0.9 0.8 0.6 0.8 Abs Baso <0.11 k/uL 0.05 0.04 0.04 0.04 Nucleated Reds 0 /100 WBC 0.0 0.0 0.0 0.2 (H) Absolute nRBC <0.01 k/uL 0.00 <0.01 <0.01 0.01 (H) Diff Type Auto Diff Auto Diff Auto Diff Auto Diff Protein, Total 6.3 - 8.0 g/dL 6.2 (L) 6.1 (L) Albumin 3.9 - 4.9 g/dL 4.1 4.0 Calcium 8.5 - 10.2 mg/dL 8.8 8.9 8.6 Bilirubin, Total 0.2 - 1.3 mg/dL 0.7 0.6 Alkaline Phosphatase 32 - 117 U/L 90 65 AST 13 - 35 U/L 26 18 Glucose 74 - 99 mg/dL 88 86 83 BUN 7 - 21 mg/dL 17 17 13 Creatinine 0.58 - 0.96 mg/dL 0.73 0.72 0.67 Sodium 136 - 144 mmol/L 145 (H) 144 146 (H) Potassium 3.7 - 5.1 mmol/L 4.1 4.3 4.6 Chloride 97 - 105 mmol/L 106 (H) 105 105 CO2 22 - 30 mmol/L 26 25 32 (H) Anion Gap 9 - 18 mmol/L 13 14 9 ALT 7 - 38 U/L 21 14 eGFR- >60 >60 >60 eGFR-All Other Races . >60 >60 >60 Total Cholesterol, Nonfasting <200 mg/dL 186 Triglycerides, Nonfasting <150 mg/dL 90 HDL Cholesterol, Nonfasting >39 mg/dL 90 LDL Cholesterol, Nonfasting <100 mg/dL 78 Non HDL Cholesterol, Nonfasting <130 mg/dL 96 VLDL Cholesterol, Nonfasting <30 mg/dL 18 Total Chol/HDL Ratio, Nonfasting <5.10 mg/dL 2.07 LDL/HDL Ratio, Nonfasting <2.54 mg/dL 0.87 Iron 41 - 186 ug/dL 132 TIBC 232 - 386 ug/dL 341 Transferrin Saturation 15 - 57 % 39 Hep C Antibody IA Negative Negative WSR 0 - 20 mm/hr 2 CRP <0.9 mg/dL <0.1 Vitamin B12 211 - 946 pg/mL 504 Vitamin D 25 Hydroxy 31.0 - 80.0 ng/mL 31.7 Vitamin B1, WB 70 - 180 nmol/L 144 Vitamin B6, Plasma 20.0 - 125.0 nmol/L 11.6 (L) TSH 0.400 - 5.500 uU/mL 0.559 0.641 Free T4 0.9 - 1.7 ng/dL 1.6 Cross-Link N-telopeptide 14.4 - 75.0 nM/mM Creat 58.4 ASSESSMENT AND PLAN: Encounter Diagnosis ICD-10-CM 1. Acquired hypothyroidism E03.9 TSH BLD T3 FREE BLD T4 FREE/FREE THYROX 2. Status post bariatric surgery Z98.84 3. Rotator cuff arthropathy, left M12.812 BUTRANS 10 mcg/hour 4. Other chronic pain G89.29 BUTRANS 10 mcg/hour shoulder pain (rotator cuff issue) and back pain 5. Encounter for long-term current use of medication Z79.899 COMP METABOLIC PANEL CBC Above issues addressed with patient. Patient involved in shared decision making for management of her medical issues. Continues to follow up with Dr. Lance for pain management History and medications reviewed. Epic updated as needed Refills taken care of and meds adjusted as indicated after reviewed history, exam and labs. Health Maintenance reviewed. Updated record and/or ordered tests as recorded. Encouraged on efforts at healthy diet and regular exercise and adequate sleep. Discussed need to get more protein in diet. The majority of the visit was spent counseling and/or coordinating care for the patient. [id number]-[id number] time was at least 25 minutes. Sun Bennett MD COMP METABOLIC PANEL Collected: 04/30/2017 Status: F Source: [place] 11:21 AM [facility] REPOSITORY TYPE CODE TESTS RESULT OUT OF REFERENCE UNITS RANGE LAB TP 6.3-8.0 g/dL Low Protein, Total 6.1 LAB ALB 3.9-4.9 g/dL Albumin 4.0 LAB CA 8.5-10.2 mg/dL Calcium, Total 8.6 LAB TBIL 0.2-1.3 mg/dL Bilirubin, Total 0.6 LAB ALKP 32-117 U/L Alkaline Phosphatase 65 LAB AST 13-35 U/L AST 18 LAB GLU 74-99 mg/dL Glucose 83 Result Comment: The [place] Diabetes Association (ADA) provides guidance for cutoff values for fasting glucose and random glucose. The ADA defines fasting as no caloric intake for at least 8 hours. Fas ting plasma glucose results between 100 to 125 mg/dL indicate increased risk for diabetes (prediabetes). Fasting plasma glucose results greater than or equal to 126 mg/dL meet the criteria for diagnosis of diabetes. In the absence of unequivocal hyperglycemia, results should be confirmed by repeat testing. In a patient with classic symptoms of hyperglycemia or hyperglycemic crisis, random plasma glucose results greater than or equal to 200 mg/dL meet the criteria for diagnosis of diabetes. Reference: Standards of Medical Care in Diabetes 2016, [place] [employer]. Diabetes Care. 2016.39(Suppl 1). LAB BUN 7-21 mg/dL BUN 13 LAB CRET 0.58-0.96 mg/dL Creatinine 0.67 LAB NA 136-144 mmol/L Sodium High 146 LAB K 3.7-5.1 mmol/L Potassium 4.6 LAB CL 97-105 mmol/L Chloride 105 LAB CO2 22-30 mmol/L CO2 High 32 LAB AGAP 9-18 mmol/L Anion Gap 9 LAB ALT 7-38 U/L ALT 14 LAB GFRAA eGFR- Amer. >60 LAB GFRNAA . eGFR-All Other Races >60 Result Comment: eGFR (Estimated GFR) Units of measure: mL/min/1.73 meters squared eGFR is derived from the reexpressed MDRD Study equation using the following parameters: serum creatinine, age, gender and race. The creatinine assay has been calibrated to be traceable to [place]. An eGFR <60 mL/min/1.73m2 for >3 months is consistent with chronic kidney disease. Refer to KDOQI guidelines for clinical interpretation. In patients with unstable renal function, e.g. those with acute kidney injury, the eGFR may not accurately reflect actual GFR. Performed By: #### CMP, CBCDIF, TSH #### [facility] [address] [place], [place] [address] CBC AND DIFFERENTIAL Collected: 04/30/2017 Status: F Source: [place] 11:21 AM [facility] REPOSITORY TYPE CODE TESTS RESULT OUT OF REFERENCE UNITS RANGE LAB WBC 3.70-11.00 k/uL WBC 5.21 LAB RBC 3.90-5.20 m/uL RBC 4.44 LAB HGB 11.5-15.5 g/dL Hemoglobin 13.9 LAB HCT 36.0-46.0 % Hematocrit 43.2 LAB MCV 80.0-100.0 fL MCV 97.3 LAB MCH 26.0-34.0 pG MCH 31.3 LAB MCHC 30.5-36.0 g/dL MCHC 32.2 LAB RDWCV 11.5-15.0 % RDW-CV 12.9 LAB PLTCT 150-400 k/uL Platelet Count 228 LAB MPV 9.0-12.7 fL MPV 10.5 LAB ANEUT % Neut% 41.6 LAB AANEUT 1.45-7.50 k/uL Abs Neut 2.17 LAB ALYMP % Lymph% 49.1 LAB AALYMP 1.00-4.00 k/uL Abs Lymph 2.56 LAB AMONO % Rogers% 6.0 LAB AAMONO <0.87 k/uL Abs Rogers 0.31 LAB AEOS % Eosin% 2.5 LAB AAEOS <0.46 k/uL Abs Eosin 0.13 LAB ABASO % Baso% 0.8 LAB AABASO <0.11 k/uL Abs Baso 0.04 LAB AUNRBC 0 /100 WBC NRBCs High 0.2 LAB ABNRBC <0.01 k/uL Absolute High nRBC 0.01 LAB DTYP DTYPE Auto Diff Performed By: #### CMP, CBCDIF, TSH #### [facility] [employer] [address], [place] [address] TSH Collected: 04/30/2017 Status: F Source: [place] 11:21 AM [facility] REPOSITORY TYPE CODE TESTS RESULT OUT OF RANGE REFERENCE UNITS LAB TSH 0.400-5.500 uU/mL TSH 0.641 Performed By: #### CMP, CBCDIF, TSH #### [facility] [employer] [facility] [address] [place], [place] [address] LIPID PANEL, NONFAST Collected: 04/30/2017 Status: F Source: [place] 11:21 AM [facility] REPOSITORY TYPE CODE TESTS RESULT OUT OF REFERENCE UNITS RANGE LAB CHOLNF <200 mg/dL Total Cholesterol NF 186 Result Comment: <200 mg/dL, Desirable 200-239 mg/dL, Borderline high >239 mg/dL, High LAB TRIGNF <150 mg/dL Triglycerides, NF 90 Result Comment: <150 mg/dL, Normal 150-199 mg/dL, Borderline high 200-499 mg/dL, High >499 mg/dL, Very high LAB HDLNF >39 mg/dL HDL Cholesterol, NF 90 Result Comment: 40-59 mg/dL, Acceptable >59 mg/dL, High: Negative risk factor for coronary heart disease <40 mg/dL, Low: Positive risk factor for coronary heart disease LAB LDLNF <100 mg/dL LDL Cholesterol, NF 78 Result Comment: <100 mg/dL, Optimal 100-129 mg/dL, Near optimal/above optimal 130-159 mg/dL, Borderline high 160-189 mg/dL, High >189 mg/dL, Very high Secondary prevention optimal LDL Cholesterol levels are recommended to be < 70 mg/dL LAB NOHDLN <130 mg/dL Non HDL Chol, 96 NF Result Comment: <130 mg/dL, Optimal 130-159 mg/dL, Near optimal/above optimal 160-189 mg/dL, Borderline high 190-219 mg/dL, High >219 mg/dL, Very high Secondary prevention optimal non HDL Cholesterol levels are recommended to be < 100 mg/dL LAB VLDLNF <30 mg/dL VLDL Cholesterol, NF 18 LAB TCHDLN <5.10 mg/dL T Chol/HDL Ratio NF 2.07 LAB LDLHDN <2.54 mg/dL LDL/HDL Ratio, NF 0.87 Result Comment: Reference: 1. National Cholesterol Education Program ATP III Guideline At-A-Glance Quick Desk Reference: National Heart, Lung, and Blood [place]. National Institutes of Health. 2001: NIH Publication No. 01-3305. 2. An International Atherosclerosis Society position paper: global recommendations for the management of dyslipidemia: executive summary, Atherosclerosis. 2014: 232(2):410-413. Performed By: #### LIPNF #### [facility] [address] [address] ALLERGIES ALLERGIES DATE TYPE / CODE NAME / CODE REACTION SEVERITY SOURCE 03/21/20 Drug prednisone/[id number] Other Unknown [place] 15 Allergy/486426802 4(RXNORM) [facility] (SNOMED CT) Hospital Repository 01/21/20 Drug prochlorperazine Unknown Unknown [place] 13 Allergy/177201849 edisylate/[id number] [facility] (SNOMED CT) (RXNORM) Hospital Repository 01/21/20 Drug prochlorperazine Unknown Unknown [place] 13 Allergy/340086320 maleate/[id number](R Community (SNOMED CT) XNORM) Hospital Repository 01/21/20 Drug oxycodone Unknown Unknown [place] 13 Allergy/351678119 HCl/[id number](RXNOR Community (SNOMED CT) M) Hospital Repository 01/21/20 Drug benztropine Unknown Unknown [place] 13 Allergy/920567164 mesylate/[id number]( Community (SNOMED CT) RXNORM) Hospital Repository 01/21/20 Drug venlafaxine Unknown Unknown [place] 13 Allergy/584281981 HCl/[id number](RXNOR Community (SNOMED CT) M) Hospital Repository 01/21/20 Drug codeine/[id number](R Unknown Unknown [place] 13 Allergy/737568998 XNORM) [facility] (SNOMED CT) Hospital Repository 12/18/19 DRUG CEPHALEXIN INTOLERANCE [place] 12 INGREDI/[id number] Clinic Other (SNOMED CT) [place] Repository 03/15/20 DRUG/324080303(SN OXYCODONE-ACETAMINOP ITCHING [place] [address]) HEN Clinic Other [place] Repository 01/02/20 DRUG VENLAFAXINE HCL INTOLERANCE High [place] 10 INGREDI/[id number] Clinic Other (SNOMED CT) [place] Repository 03/16/20 Miscellaneous OTHER [place] 08 Allergy/286185405 Clinic Other (SNOMED CT) [place] Repository 03/16/20 DRUG BENZTROPINE MESYLATE [place] 08 INGREDI/[id number] Clinic Other (SNOMED CT) [place] Repository 01/05/20 Drug ANTICHOLINERGICS - [place] 03 Class/781046811(S QUATERNARY Clinic Other NOMED CT) [place] Repository 01/05/20 Drug PHENOTHIAZINES [place] 03 Class/669329255(S Clinic Other NOMED CT) [place] Repository ENCOUNTERS ENCOUNTERS ADMIT/DISCHARGE ACCOUNT NUMBER ADMITTING ENCOUNTER LOCATION SOURCE CLASS 04/20/2018 [id number] [facility] ding:LAB Repository 03/19/2018 [id number] Ambulatory [facility] Other [place] Repository 03/04/2018/03/05/20 [id number] Ambulatory [address] Main [place] Repository 03/02/2018/03/02/20 [id number] Ambulatory [address] Main [place] Repository 02/09/2018/02/11/20 [id number] Ambulatory [address] Main [place] Repository 01/28/2018/02/03/20 [id number] Ambulatory [address] Main [place] Repository 01/19/2018/01/21/20 [id number] Ambulatory [address] Main [place] Repository 12/24/2017/12/25/19 [id number] Ambulatory [address] Main [place] Repository 12/03/2017/12/05/19 [id number] Ambulatory [address] [place] Repository 12/02/2017 [id number] Ambulatory [facility] ding:LAB Repository 11/24/2017/11/26/19 [id number] Ambulatory [address] Main [place] Repository 11/23/2017/11/24/19 [id number] Emergency [address] ding:ED Repository 11/18/2017/11/20/19 [id number] Ambulatory [address] Main [place] Repository 11/06/2017/11/07/19 [id number] Ambulatory [address] Main [place] Repository 10/28/2017/10/30/19 [id number] Ambulatory [facility] [place] Repository 10/06/2017/10/07/19 [id number] Ambulatory [facility] [place] Repository 10/02/2017/10/03/19 [id number] ANA CONTRERAS Ambulatory [place] [facility] Other [place] Repository 09/30/2017/10/01/19 [id number] Ambulatory [facility] [place] Repository 09/29/2017/09/30/19 [id number] Ambulatory [facility] [place] Repository 09/22/2017/09/24/19 [id number] Ambulatory [facility] [place] Repository 09/16/2017/09/19/19 [id number] Ambulatory [facility] [place] Repository 09/15/2017/09/17/19 [id number] Ambulatory [facility] [place] Repository 09/11/2017/09/12/19 [id number] Ambulatory [facility] [place] Repository 09/11/2017 [id number] Ambulatory [facility] [place] Repository 09/10/2017/09/16/19 [id number] Ambulatory [facility] [place] Repository 09/09/2017/09/10/19 [id number] Ambulatory [facility] [place] Repository 09/08/2017/09/11/19 [id number] Ambulatory [facility] [place] Repository 09/08/2017/09/12/19 [id number] Ambulatory [facility] [place] Repository 08/26/2017/08/28/19 [id number] Ambulatory [facility] [place] Repository 08/13/2017/08/16/19 [id number] Ambulatory [place] [facility] [place] Repository 08/12/2017 [id number] Ambulatory [facility] ding:LABSPEC Repository 08/11/2017/08/13/19 [id number] Ambulatory [facility] [place] Repository 08/02/2017/08/03/19 [id number] Emergency [place] [facility] Other [place] Repository 07/30/2017 [id number] Ambulatory [facility] [place] Repository 07/30/2017/07/31/19 [id number] Ambulatory [facility] [place] Repository 07/30/2017/08/02/19 [id number] Ambulatory [facility] [place] Repository 07/29/2017/07/30/19 [id number] Ambulatory [facility] [place] Repository 07/21/2017/07/26/19 [id number] Ambulatory [facility] [place] Repository 07/16/2017/07/22/19 [id number] Ambulatory [facility] [place] Repository 07/14/2017 [id number] Ambulatory [facility] [place] Repository 07/14/2017/07/16/19 [id number] Ambulatory [facility] [place] Repository 07/09/2017/07/11/19 [id number] Ambulatory [facility] [place] Repository 07/08/2017/07/16/19 [id number] Ambulatory [facility] [place] Repository 06/12/2017/06/14/19 [id number] Ambulatory [facility] [place] Repository 05/29/2017/05/30/19 [id number] Ambulatory [facility] [place] Repository 05/29/2017/05/30/19 [id number] Ambulatory [address] [facility] [place] Repository 05/13/2017/06/03/19 [id number] Ambulatory [facility] [place] Repository 05/06/2017/06/03/19 [id number] Ambulatory [facility] [place] Repository 04/30/2017/04/30/19 [id number] Ambulatory [address] [place] Repository PAYERS PAYERS ENCOUNTER GUARANTOR PAYER SUBSCRIBER SOURCE 04/20/2018 SENG Bryan [id number] Insurance:MEDICARE TUTTLEDOB: Community [id number] Rep[place] [address]Nbh: [phone] [id number] [phone] () Date:2018-04-20 04/20/2018 Secondary SENG Bryan Insurance:ANTHEMPolic TUTTLEDOB: Community y Number: [id number] [facility] [id number] Repository Date:2207-94-98[address]Z [id number] [place] [address]ID: 04/20/2018 Tertiary KELLI Bryan Insurance:SELF PAY [facility] Effective Repository Date:2018-04-20 12/02/2017 SENG Bryan [id number] Insurance:MEDICARE TUTTLEDOB: Community [place] PART A [facility] [id number]: Repository [id number]: 330 [id number] [phone] () Date:2017-12-02 12/02/2017 Secondary SENG R [place] Insurance:ANTHEMPolic TUTTLEDOB: Community y Number: [id number] Hospital [id number] Repository Date:2091-83-05FN [address], [place] [address]SN: 12/02/2017 Tertiary NOT GIVENUNK Randi Insurance:SELF PAY [facility]: Effective Repository Date:2017-12-02 11/23/2017 SENG R Primary FRANNIE Joya Randi [id number] Insurance:MEDICARE TUTTLEDOB: Community [place] PART A [id number] [place] [facility] Repository [address]Gda: 330 [id number] [phone] () Date:2017-11-23 11/23/2017 Secondary SENG R Randi Insurance:ANTHEMPolic TUTTLEDOB: Community y Number: [id number] Hospital [id number] Repository Date:9319-54-04HD [address], [place] [address]NB: 11/23/2017 Tertiary NOT GIVENUNK Randi Insurance:SELF PAY [facility] Number: Effective Repository Date:2017-11-23 08/12/2017 SENG R Primary FRANNIE Joya Randi [id number] Insurance:MEDICARE TUTTLEDOB: Community [place] PART A [id number] [place] Number: Repository [id number]: 330 [id number] [phone] () Date:2017-08-12 08/12/2017 Secondary SENG R [place] Insurance:ANTHEMPolic TUTTLEDOB: Community y Number: [id number] Hospital [id number] Repository Date:4338-19-77VY [address], [place] [address]PD: 08/12/2017 Tertiary NOT GIVENUNK Randi Insurance:SELF PAY [facility] Number: Effective Repository Date:2017-08-12
== END ==
PROVIDERS: Family Provider Internal Medicine; PCP Internal Medicine; Referring Provider Urology; Visit Provider Urology
DX: R30.0 Dysuria (principal)
CPT/HCPCS: 87086; 87088

== ENCOUNTER → 2018-07-22 | Outpatient (CLI) | payer MEDICARE, BC, SELFPAY ==
--- NOTE | 2018-07-22 11:34 | RAD_ITS ---
STUDY: X-RAY - LUMBAR SPINE REASON FOR EXAM: Female, 68 years old. Low back pain. TECHNIQUE: 3 view(s) of the lumbar spine were obtained. COMPARISON: None FINDINGS: There is generalized osteopenia. Normal lumbar lordosis. There is no substantial scoliosis. There is 6 mm of anterolisthesis of L3 on L4 from facet degeneration. Normal vertebral bodies and endplates. There is mild intervertebral disc space narrowing at L3-4, L4-5 and L5-S1 with small osteophytes at L5-S1. There is diffuse facet sclerosis. There are surgical clips in the upper abdomen and in the pelvis. There are vascular calcifications. RAD/Lumbar Spine 2 or 3 Views IMPRESSION: Osteopenia with lumbar spondylosis as described. No acute finding. Electronically Signed: Damian Phillips MD at 13:30 EDT , Service support ,
--- NOTE | 2018-07-22 11:35 | RAD_ITS ---
STUDY: X-RAY - THORACIC SPINE REASON FOR EXAM: Female, 68 years old. Mid and low back pain. TECHNIQUE: 3 view(s) of the thoracic spine were obtained. COMPARISON: None. FINDINGS: There is generalized osteopenia. There is increased kyphosis. There is no substantial scoliosis. Normal thoracic vertebrae and endplates. There is intervertebral disc space narrowing diffusely with osteophyte formation most marked in the mid-thoracic spine. There are clips at the GE junction and cholecystectomy clips. RAD/Thoracic Spine 2 Views IMPRESSION: Osteopenia with thoracic spondylosis. No acute finding. Electronically Signed: Damian Phillips MD at 13:29 EDT , Service support ,
== END | disposition home or self-care (01) ==
LOC: RAD 11:33
PROVIDERS: Family Provider Internal Medicine; PCP Internal Medicine; Referring Provider Anesthesiology Pain Medicine; Visit Provider Anesthesiology Pain Medicine
DX: M54.9 Dorsalgia, unspecified (principal)
CPT/HCPCS: 72070; 72100

== ENCOUNTER → 2018-08-31 | Outpatient (CLI) | payer MEDICARE, BC, SELFPAY ==
[2018-08-31 13:49] LABS: Absolute Lymphocyte Count 2.09 X10^3/ul (0.83-4.51); Absolute Neutrophil Count 5.1 X10^3/uL (2.0-7.7); Basophil# 0.02 X10^3/uL; Basophil% 0.3 % (0-1); Eosinophil# 0.01 X10^3/uL; Eosinophils% 0.1 % (0-5); Hematocrit 41.3 % (37-47); Hemoglobin 13.4 g/dl (12.0-15.0); Lymphocyte # 2.09 X10^3/ul (4.0); Lymphocyte % 26.8 % (19-41); Mean Corp Hgb Conc 32.4 g/gl (32-36); Mean Corpuscular Hgb 30.7 pg (27.0-32.0); Mean Corpuscular Volume 94.5 fL (81-99); Mean Platelet Vol. 9.8 fl (6.2-12.0); Monocyte# 0.52 X10^3/uL; Monocyte% 6.7 % (0-10); Neutrophil # 5.14 X10^3/uL (2.7-7.7); Neutrophil % 65.8 % (47-70); Platelet Count 280 K/mm3 (150-450); RBC Distribution Width CV 12.8 % (11.6-14.6); RBC Distribution Width SD 44.6 fl (35.1-43.9); Red Blood Count 4.37 M/mm3 (4.2-5.4); White Blood Count 7.8 K/mm3 (4.4-11.0)
[2018-08-31 13:56] LABS: POSITIVE COUNT NO; POSITIVE DIFFERENTIAL NO; POSITIVE MORPHOLOGY NO
[2018-08-31 14:07] LABS: ALB/GLOB Ratio 1.2 RATIO (0.9-2.4); AST(SGOT) 29 U/L (15-37); Alanine Aminotransfer ALT/SGPT 28 U/L (13-56); Albumin, Serum 3.6 g/dL (3.2-5.0); Alkaline Phosphatase 86 U/L (45-117); Anion Gap 6 (5-15); BUN 14 mg/dL (7-18); BUN/Creat Ratio 18.1 RATIO (10-20); Calcium,Total 8.4 mg/dL (8.5-10.1); Chloride 106 mmol/L (98-107); Creatinine, Serum 0.78 mg/dL (0.55-1.02); EST Glomerular Filtration Rate 79 mL/min (>60); Est Glom Filt Rate - Afr Amer 96 mL/min (>60); Globulin 2.9 g/dL (2.2-4.2); Glucose 89 mg/dL (74-106); Potassium 3.7 mmol/L (3.5-5.1); Protein, Total 6.5 g/dL (6.4-8.2); Sodium Level 141 mmol/L (136-145)
== END | disposition home or self-care (01) ==
LOC: MTLAB 11:35
PROVIDERS: Family Provider Internal Medicine; PCP Internal Medicine; Referring Provider Internal Medicine Rheumatology; Visit Provider Internal Medicine Rheumatology
DX: L40.59 Other psoriatic arthropathy (principal); M15.9 Polyosteoarthritis, unspecified; L40.8 Other psoriasis; K21.0 Gastro-esophageal reflux disease with esophagitis; M21.40 Flat foot [pes planus] (acquired), unspecified foot; K76.0 Fatty (change of) liver, not elsewhere classified; E78.5 Hyperlipidemia, unspecified; E03.9 Hypothyroidism, unspecified; G47.30 Sleep apnea, unspecified; Z98.84 Bariatric surgery status; Z85.51 Personal history of malignant neoplasm of bladder
CPT/HCPCS: 36415; 80053; 85025

== ENCOUNTER → 2018-10-13 | Outpatient (CLI) | payer MEDICARE, BC, SELFPAY ==
--- NOTE | 2018-10-13 12:55 | MRI_ITS ---
HISTORY: BACK PAIN EXAM/TECHNIQUE: MR Spine Lumbar W/O Contrast: 1.5 Ting. Multiplanar, multisequence. COMPARISON: 07/22/14 CT abdomen pelvis. FINDINGS: # of images incl. paperwork: 121 2 mm degenerative anterolisthesis of L2 on L3 and 4 mm degenerative anterolisthesis of L3 on L4 similar to prior. Alignment otherwise anatomic. Conus terminates at the level of the mid L2 vertebral body with normal contour and signal. Thecal sac terminates at the level of the upper S1 endplate. Paraspinal soft tissues are unremarkable. No fracture or acute or aggressive signal changes in the vertebrae, disks, or ligaments. Endplates intact. At L1-2 disc and facets are normal with no significant narrowing. At L2-3, moderate to severe bilateral facet degeneration with small bilateral facet joint effusions because mild grade 1 degenerative anterolisthesis. Only mild narrowing of the spinal canal and foramina with no evidence of nerve root impingement. At L3-4, marked bilateral facet degeneration with grade 1, 5 mm, degenerative anterolisthesis causes only mild narrowing of the spinal canal and foramina with no evidence of nerve root impingement. At L4-5 and L5-S1, diffuse disc bulge and mild bilateral facet degeneration causes only mild narrowing. MRI/Spine Lumbar (Routine) IMPRESSION: Prominent facet degeneration at L2-3 and L3-4 with grade 1 anterolisthesis at these levels but only mild spinal canal and foraminal narrowing. Consider flexion-extension radiographs to assess for mechanical instability. at 1414 Reported and signed by: Ray Ghosh MD Electronically Signed: Ray Ghosh, at 14:13 EDT Tel , Service support ,
== END | disposition home or self-care (01) ==
LOC: MRI 12:45
PROVIDERS: Family Provider Internal Medicine; PCP Internal Medicine; Referring Provider Anesthesiology Pain Medicine; Visit Provider Anesthesiology Pain Medicine
DX: M54.9 Dorsalgia, unspecified (principal); M79.606 Pain in leg, unspecified
CPT/HCPCS: 72148

== ENCOUNTER → 2018-10-22 | Outpatient (CLI) | payer MEDICARE, BC, SELFPAY ==
--- NOTE | 2018-10-22 14:00 | RAD_ITS ---
STUDY: X-RAY - LUMBAR SPINE REASON FOR EXAM: Female, 68 years old. Low back pain TECHNIQUE: 2 view(s) of the lumbar spine were obtained. COMPARISON: 07/22/2018 FINDINGS: Normal lumbar lordosis. There is no substantial scoliosis. There is a normal alignment of the vertebrae from L1 to L3 there is a grade 1 spondylolisthesis at L3-4. There is multilevel endplate spondylosis of the lumbar vertebrae. There is multi-level degenerative disc disease with multi-level disc space narrowing. There is no demonstrated fracture. The soft tissue structures are unremarkable. RAD/Lumbar Spine 2 or 3 Views IMPRESSION: Multilevel degenerative changes, no demonstrated fracture. Grade 1 spondylolisthesis at L3-4 Electronically Signed: Yovani Christian MD at 14:59 EDT , Service support ,
--- NOTE | 2018-10-22 14:07 | RAD_ITS ---
STUDY: X-RAY - LUMBAR SPINE REASON FOR EXAM: Female, 68 years old. Back pain TECHNIQUE: 2 view(s) of the lumbar spine were obtained. COMPARISON: None FINDINGS: No evidence of instability on the flexion or extension views. Range of motion however is limited. There is anatomic alignment from L1 to L3. There is a grade 1 spondylolisthesis at L3-4. L4-5 and L5-S1 align anatomically. No demonstrated fracture. RAD/L/S Spine Bending Flex/Ext IMPRESSION: No instability, range of motion limited Multilevel degenerative changes, no demonstrated fracture Grade 1 spondylolisthesis at L3-4 Electronically Signed: Yovani Christian MD at 14:58 EDT , Service support ,
== END | disposition home or self-care (01) ==
LOC: RAD 13:56
PROVIDERS: Family Provider Internal Medicine; PCP Internal Medicine; Referring Provider Anesthesiology Pain Medicine; Visit Provider Anesthesiology Pain Medicine
DX: M54.9 Dorsalgia, unspecified (principal)
CPT/HCPCS: 72100; 72120

== ENCOUNTER → 2018-12-21 14:23 | Outpatient (CLI) | payer MEDICARE, BC, SELFPAY ==
[2018-12-21 15:19] LABS: Amphetamine Urine VISTA NEGATIVE (<1000 ng/mL); Barbiturate Urine VISTA NEGATIVE (< 200 ng/mL); Benzodiazepine Urine VISTA NEGATIVE (< 200 ng/mL); Cocaine Urine VISTA NEGATIVE (< 300 ng/mL); Ecstacy Urine VISTA NEGATIVE (< 500 ng/mL); Methadone Urine VISTA NEGATIVE (< 300 ng/mL); PCP Urine VISTA NEGATIVE (< 25 ng/mL); THC Urine VISTA NEGATIVE (< 50 ng/mL); Vista UDS pH Range 5
== END ==
PROVIDERS: Family Provider Internal Medicine; PCP Internal Medicine; Referring Provider Anesthesiology Pain Medicine; Visit Provider Anesthesiology Pain Medicine
DX: F11.20 Opioid dependence, uncomplicated (principal)
CPT/HCPCS: 80307

== ENCOUNTER → 2019-02-24 10:41 | Outpatient (CLI) | payer MEDICARE, BC, SELFPAY ==
[2019-02-24 12:27] LABS: Absolute Lymphocyte Count 2.28 X10^3/uL (0.83-4.51); Basophil# 0.02 X10^3/uL; Basophil% 0.3 % (0-1); Eosinophil# 0.03 X10^3/uL; Eosinophils% 0.4 % (0-5); Hematocrit 45.5 % (37-47); Hemoglobin 14.4 g/dL (12.0-15.0); Lymphocyte # 2.28 X10^3/ul (4.0); Lymphocyte % 33.9 % (19-41); Mean Corp Hgb Conc 31.6 g/dL (32-36); Mean Corpuscular Hgb 30.4 pg (27.0-32.0); Mean Corpuscular Volume 96.2 fL (81-99); Monocyte# 0.38 X10^3/uL; Monocyte% 5.7 % (0-10); NRBC Flagged by Analyzer 0 % (0-5); Neutrophil # 3.99 X10^3/uL (2.7-7.7); Neutrophil % 59.4 % (47-70); Platelet Count 327 K/mm3 (150-450); RBC Distribution Width CV 12.7 % (11.6-14.6); RBC Distribution Width SD 45.4 fl (35.1-43.9); Red Blood Count 4.73 M/mm3 (4.2-5.4); White Blood Count 6.7 K/mm3 (4.4-11.0)
[2019-02-24 12:45] LABS: ALB/GLOB Ratio 1.3 RATIO (0.9-2.4); AST(SGOT) 24 U/L (15-37); Alanine Aminotransfer ALT/SGPT 24 U/L (13-56); Albumin, Serum 3.9 g/dL (3.2-5.0); Alkaline Phosphatase 96 U/L (45-117); Anion Gap 8 (5-15); BUN 13 mg/dL (7-18); BUN/Creat Ratio 16.6 RATIO (10-20); Calcium,Total 8.5 mg/dL (8.5-10.1); Chloride 107 mmol/L (98-107); Creatinine, Serum 0.78 mg/dL (0.55-1.02); EST Glomerular Filtration Rate 78 mL/min (>60); Est Glom Filt Rate - Afr Amer 94 mL/min (>60); Glucose 87 mg/dL (74-106); Potassium 4.3 mmol/L (3.5-5.1); Protein, Total 6.9 g/dL (6.4-8.2); Sodium Level 142 mmol/L (136-145)
== END ==
PROVIDERS: Family Provider Internal Medicine; PCP Internal Medicine; Referring Provider Internal Medicine Rheumatology; Visit Provider Internal Medicine Rheumatology
DX: L40.59 Other psoriatic arthropathy (principal); M15.9 Polyosteoarthritis, unspecified; L40.8 Other psoriasis; K21.0 Gastro-esophageal reflux disease with esophagitis; M21.40 Flat foot [pes planus] (acquired), unspecified foot; K76.0 Fatty (change of) liver, not elsewhere classified; E78.5 Hyperlipidemia, unspecified; E03.9 Hypothyroidism, unspecified; G47.30 Sleep apnea, unspecified; Z98.84 Bariatric surgery status; Z85.51 Personal history of malignant neoplasm of bladder
CPT/HCPCS: 36415; 80053; 85025

== ENCOUNTER → 2019-08-27 12:34 | Outpatient (CLI) | payer MEDICARE, BC, SELFPAY ==
[2019-08-27 15:31] LABS: Absolute Lymphocyte Count 1.73 X10^3/uL (0.83-4.51); Basophil# 0.04 X10^3/uL; Basophil% 0.8 % (0-1); Eosinophil# 0.07 X10^3/uL; Eosinophils% 1.3 % (0-5); Hematocrit 40.6 % (37-47); Hemoglobin 12.7 g/dL (12.0-15.0); Lymphocyte # 1.73 X10^3/ul (4.0); Mean Corp Hgb Conc 31.3 g/dL (32-36); Mean Corpuscular Hgb 30.2 pg (27.0-32.0); Mean Corpuscular Volume 96.7 fL (81-99); Mean Platelet Vol. 9.9 fl (6.2-12.0); Monocyte# 0.41 X10^3/uL; Monocyte% 7.8 % (0-10); NRBC Flagged by Analyzer 0 % (0-5); Neutrophil # 2.98 X10^3/uL (2.7-7.7); Neutrophil % 56.9 % (47-70); Platelet Count 312 K/mm3 (150-450); RBC Distribution Width CV 12.8 % (11.6-14.6); RBC Distribution Width SD 45.3 fl (35.1-43.9); White Blood Count 5.2 K/mm3 (4.4-11.0)
[2019-08-27 17:05] LABS: ALB/GLOB Ratio 1.3 RATIO (0.9-2.4); AST(SGOT) 21 U/L (15-37); Alanine Aminotransfer ALT/SGPT 19 U/L (13-56); Albumin, Serum 3.7 g/dL (3.2-5.0); Alkaline Phosphatase 95 U/L (45-117); Anion Gap 6 (5-15); BUN 13 mg/dL (7-18); BUN/Creat Ratio 16.7 RATIO (10-20); Calcium,Total 8.6 mg/dL (8.5-10.1); Chloride 112 mmol/L (98-107); Creatinine, Serum 0.78 mg/dL (0.55-1.02); EST Glomerular Filtration Rate 79 mL/min (>60); Est Glom Filt Rate - Afr Amer 95 mL/min (>60); Globulin 2.8 g/dL (2.2-4.2); Glucose 95 mg/dL (74-106); Potassium 4.2 mmol/L (3.5-5.1); Protein, Total 6.5 g/dL (6.4-8.2); Sodium Level 145 mmol/L (136-145)
== END ==
PROVIDERS: PCP Internal Medicine; Referring Provider Internal Medicine Rheumatology; Visit Provider Internal Medicine Rheumatology
DX: L40.59 Other psoriatic arthropathy (principal); M15.9 Polyosteoarthritis, unspecified; L40.8 Other psoriasis; K21.0 Gastro-esophageal reflux disease with esophagitis; M21.40 Flat foot [pes planus] (acquired), unspecified foot; K76.0 Fatty (change of) liver, not elsewhere classified; E78.5 Hyperlipidemia, unspecified
CPT/HCPCS: 36415; 80053; 85025

== ENCOUNTER → 2019-12-16 13:10 | Outpatient (CLI) | payer MEDICARE, BC, SELFPAY ==
--- NOTE | 2019-12-16 13:25 | RAD_ITS ---
STUDY: X-RAY - THORACIC SPINE REASON FOR EXAM: Female, 69 years old. upper back pain after a fall, patient unsure how long ago her fall was TECHNIQUE: 3 view(s) of the thoracic spine were obtained. COMPARISON: 07/22/2018. FINDINGS: Upper thoracic dextroscoliosis. Slightly exaggerated kyphosis. Osteopenia. Mild/moderate endplate spondylosis. Multilevel disc height loss. Small anterior osteophytes. No spondylolisthesis. No acute fracture, dislocation or osseous destruction. Surgical clips. Vascular calcifications. RAD/Thoracic Spine 3 Views IMPRESSION: Thoracic spine intact Moderate thoracic spine osteoarthritis Upper thoracic dextroscoliosis and exaggerated kyphosis Electronically Signed: Flavio Parikh DO at 9:03 EDT Tel , Service support ,
== END ==
PROVIDERS: PCP Internal Medicine; Referring Provider Anesthesiology Pain Medicine; Visit Provider Anesthesiology Pain Medicine
DX: M54.9 Dorsalgia, unspecified (principal); W19.XXXA Unspecified fall, initial encounter
CPT/HCPCS: 72072

== ENCOUNTER → 2020-04-24 11:39 | Outpatient (CLI) | payer MEDICARE, BC, SELFPAY ==
[2020-04-24 12:36] LABS: Amphetamine Urine VISTA NEGATIVE (<1000 ng/mL); Barbiturate Urine VISTA NEGATIVE (< 200 ng/mL); Benzodiazepine Urine VISTA NEGATIVE (< 200 ng/mL); Cocaine Urine VISTA NEGATIVE (< 300 ng/mL); Ecstacy Urine VISTA NEGATIVE (< 500 ng/mL); Methadone Urine VISTA NEGATIVE (< 300 ng/mL); PCP Urine VISTA NEGATIVE (< 25 ng/mL); THC Urine VISTA POSITIVE (< 50 ng/mL); Vista UDS pH Range 6
== END ==
PROVIDERS: PCP Internal Medicine; Referring Provider Anesthesiology Pain Medicine; Visit Provider Anesthesiology Pain Medicine
DX: F11.20 Opioid dependence, uncomplicated (principal)
CPT/HCPCS: 80307

== ENCOUNTER → 2020-05-16 | Outpatient (CLI) | payer MEDICARE, BC, SELFPAY ==
--- NOTE | 2020-05-16 11:00 | CYSPIN_PTH ---
PATIENT: GAUDENCIO ROMO LOC: [facility] U#:[id number] AGE/SX: 69/F ROOM: RE05/16/[address]: Dr. Gopi Corbin MD : 1950 BED: DIS: 05/16/2020 SPEC #: [id number] RECD: 05/17/20 12:47 STATUS: SINGH REQ #: [id number] MONY: 05/16/20 11:[address]: Gopi Corbin DEPT: CYTOLOGY RECD BY: Tara Davey ENTERED: 05/17/20 12:47 SP TYPE: CYSPIN FL OTHR DR: Dr. Caroline Bennett MD Tissues: Urine Procedures: Pap Stain (control) Special Stain Group II Cytospin Fluid HEADER OPERATION: Not noted PRE-OP DIAGNOSIS: Hematuria TISSUE SUBMITTED: Urine for cytology DIAGNOSIS CYTOLOGY Urine for cytology (cytospin): Rare mildly atypical urothelial cells noted, favor reactive. Mild acute inflammation. See comment. LAZARO:gavin 05/18/2020 COMMENT Numerous crystals are also noted. Clinical correlation and appropriate follow up are necessary. CYTOLOGY STUDY Slides are reviewed. CYTOLOGY GROSS Received is 50 ml of yellow cloudy fluid labeled with the patient's name and and designated per the requisition as urine. Submitted for cytology preparation. / gavin 05/17/2020 TC:2 CPT: 08244
[2020-05-16 12:40] LABS: Cytology, Body Fluid / CSF SEE PATHOLOGY REPORT
== END | disposition home or self-care (01) ==
LOC: LABSPEC 12:31
PROVIDERS: PCP Internal Medicine; Referring Provider Urology; Visit Provider Urology
DX: R31.9 Hematuria, unspecified (principal)
CPT/HCPCS: 88108; 88313

== ENCOUNTER → 2020-06-13 | Outpatient (CLI) | payer MEDICARE, BC, SELFPAY ==
--- NOTE | 2020-06-13 | BLA_PTH ---
PATIENT: GAUDENCIO ROMO LOC: [facility] U#:[id number] AGE/SX: 70/F ROOM: RE06/13/[address]: Dr. Gopi Corbin MD : 1950 BED: DIS: 06/13/2020 SPEC #: [id number] RECD: 06/13/20 15:39 STATUS: SINGH RESierra #: [id number] MONY: 06/13/20 00:[address]: Gopi Corbin DEPT: SURGICAL PATHOLOGY RECD BY: Tara Davey ENTERED: 06/14/20 09:46 SP TYPE: BLADDER BX OTHR DR: Dr. Caroline Bennett MD Tissues: Urinary bladder, NOS Procedures: Surgery Specimen Level IV HEADER OPERATION: Bladder biopsy PRE-OP DIAGNOSIS: D30.3 TISSUE SUBMITTED: Bladder biopsy MICROSCOPIC DIAGNOSIS Urinary bladder, biopsy: Papillary urothelial carcinoma, grade 1. See comment. AM:gavin 06/15/2020 COMMENT There is no evidence of lamina propria or vascular invasion. Detrusor muscle proper is not represented in the biopsy. Clinical correlation is suggested. Reference is made to the patient's last urine cytology ([id number]) in which rare mild atypical urothelial cells were identified. MICROSCOPIC DESCRIPTION Slides are reviewed. GROSS DESCRIPTION Received in fixative is one container labeled with the patient's name and designated bladder biopsy. The specimen consists of one irregular fragment of [place] soft tissue that measures 0.2 x 0.1 x <0.1 cm. The specimen is totally submitted in one cassette. / AM:gavin 06/14/20 TC:0 CPT: 06982
== END | disposition home or self-care (01) ==
LOC: LABSPEC 15:48
PROVIDERS: PCP Internal Medicine; Visit Provider Urology
DX: D30.3 Benign neoplasm of bladder (principal)
CPT/HCPCS: 88305

== ENCOUNTER → 2020-07-19 09:36 | Outpatient (CLI) | payer MEDICARE, BC, SELFPAY ==
--- NOTE | 2020-07-19 09:40 | RAD_ITS ---
STUDY: X-RAY - RIGHT KNEE REASON FOR EXAM: Right knee pain and swelling for 2 weeks, no specific injury. TECHNIQUE: 2 view(s) of the knee. COMPARISON: None. FINDINGS: There is osteopenia. Normal visualized distal femur. Normal visualized proximal tibia and fibula. Normal proximal tibiofibular articulation. There is moderate to severe joint space narrowing of the medial femorotibial compartment. Normal lateral femorotibial compartment. Normal patellofemoral articulation. There is a small joint effusion. RAD/Knee 1 or 2 Views IMPRESSION: Arthrosis of the medial femorotibial compartment. Small joint effusion. Electronically Signed: Chad Stevens MD at 11:21 EDT Tel , Service support ,
== END ==
PROVIDERS: PCP Internal Medicine; Referring Provider Anesthesiology Pain Medicine; Visit Provider Anesthesiology Pain Medicine
DX: M25.561 Pain in right knee (principal)
CPT/HCPCS: 73560

== ENCOUNTER → 2020-11-02 11:48 | Outpatient (CLI) | payer MEDICARE, BC, SELFPAY | PROVIDERS: PCP Internal Medicine; Referring Provider Urology; Visit Provider Urology | DX: N39.0 Urinary tract infection, site not specified (principal) | CPT/HCPCS: 87086; 87088; 87186 ==

== ENCOUNTER → 2021-03-15 13:07 | Outpatient (CLI) | payer MEDICARE, BC, SELFPAY ==
--- NOTE | 2021-03-15 13:15 | RAD_ITS ---
STUDY: XR Shoulder Min 2 Views REASON FOR EXAM: Female, 70 years old. PAIN TECHNIQUE: XR Shoulder Min 2 Views COMPARISON: None. FINDINGS: Normal glenohumeral articulation. Normal acromioclavicular joint. Normal acromion. Normal humeral head and visualized proximal humerus. The soft tissue structures are unremarkable. Normal visualized pulmonary apex. RAD/Shoulder min 2 Views IMPRESSION: There are no acute findings of the shoulder. Electronically Signed: Nemesio Fowler MD at 16:51 EST , Service support ,
== END ==
PROVIDERS: PCP Internal Medicine; Referring Provider Anesthesiology Pain Medicine; Visit Provider Anesthesiology Pain Medicine
DX: M25.511 Pain in right shoulder (principal)
CPT/HCPCS: 73030

== ENCOUNTER → 2021-08-06 | Outpatient (CLI) | payer MEDICARE, BC, SELFPAY ==
--- NOTE | 2021-08-06 14:25 | RAD_ITS ---
STUDY: X-RAY - THORACIC SPINE REASON FOR EXAM: Female, 71 years old. DISC DEGENERATION TECHNIQUE: 2 view(s) of the thoracic spine were obtained. COMPARISON: 12/16/2019 FINDINGS: Normal kyphosis of the thoracic spine. Mild dextroscoliosis of the upper thoracic spine. There is multilevel endplate spondylosis of the thoracic vertebrae. There is multilevel disc space narrowing of the thoracic spine. Mild loss of height and wedging deformity of the L1 vertebral body consistent with a mild compression fracture not seen on the prior study. The soft tissue structures are unremarkable. RAD/Thoracic Spine 2 Views IMPRESSION: 1. New mild compression fracture of L1 which may be acute, subacute or chronic. Clinical correlation and MRI may be useful. 2. Mild dextroscoliosis of the upper thoracic spine with degenerative disc disease. Electronically Signed: Jake Cameron MD at 9:43 EDT ,
== END | disposition home or self-care (01) ==
LOC: RAD 14:16
PROVIDERS: PCP Internal Medicine; Referring Provider Anesthesiology Pain Medicine; Visit Provider Anesthesiology Pain Medicine
DX: M51.36 Other intervertebral disc degeneration, lumbar region (principal)
CPT/HCPCS: 72070

== ENCOUNTER → 2022-07-30 | Outpatient (CLI) | payer MEDICARE, BC, SELFPAY | END | disposition home or self-care (01) | LOC: LABSPEC 16:17 | PROVIDERS: PCP Internal Medicine; Referring Provider Urology; Visit Provider Urology | DX: R31.29 Other microscopic hematuria (principal) | CPT/HCPCS: 87086; 87088; 87186 ==

== ENCOUNTER → 2022-12-19 | Outpatient (CLI) | payer MEDICARE, BC, SELFPAY | END | disposition home or self-care (01) | LOC: LABSPEC 16:22 | PROVIDERS: PCP Internal Medicine; Referring Provider Urology; Visit Provider Urology | DX: C67.8 Malignant neoplasm of overlapping sites of bladder (principal) | CPT/HCPCS: 87086 ==

== ENCOUNTER → 2023-09-16 | Outpatient (CLI) | payer MEDICARE, BC, SELFPAY | END | disposition home or self-care (01) | LOC: LABSPEC 17:02 | PROVIDERS: PCP Internal Medicine; Referring Provider Urology; Visit Provider Urology | DX: N39.0 Urinary tract infection, site not specified (principal) | CPT/HCPCS: 87086; 87088; 87186 ==

== ENCOUNTER → 2024-08-30 | Outpatient (CLI) | payer MEDICARE, BC, SELFPAY | END | disposition home or self-care (01) | LOC: LABSPEC 16:00 | PROVIDERS: PCP Internal Medicine; Referring Provider Urology; Visit Provider Urology | DX: R35.0 Frequency of micturition (principal) | CPT/HCPCS: 87086; 87088; 87186 ==

== ENCOUNTER → 2024-10-19 | Outpatient (CLI) | payer MEDICARE, BC, SELFPAY | END | disposition home or self-care (01) | LOC: LAB 13:53 | PROVIDERS: PCP Internal Medicine; Referring Provider Urology; Visit Provider Urology | DX: N39.0 Urinary tract infection, site not specified (principal) | CPT/HCPCS: 87077; 87086; 87088; 87186 ==